=== PATIENT | male | born 1965 | race Two or more races ===

== ENCOUNTER 2020-04-29 07:29 | Emergency (ER) | payer SELFPAY ==
--- NOTE | 2020-04-29 | XR_ITS ---
EXAMINATION: XR ABDOMEN KUB CLINICAL INDICATION: Constipation COMPARISON: None TECHNIQUE: 3 views of the abdomen. FINDINGS: The bowel gas pattern is normal with no evidence of ileus or obstruction. Moderate to large volume fecal matter in the large colon. No unusual soft tissue calcifications are noted. No acute osseous abnormality. IMPRESSION: Moderate to large volume fecal matter in the large colon.
--- NOTE | 2020-04-29 | XR_ITS ---
EXAMINATION: XR CHEST CLINICAL INFORMATION: Cough. COMPARISON: None. TECHNIQUE: 2 views of the chest were obtained. FINDINGS: Normal cardiomediastinal silhouette. Opacity in the medial aspect right lung base, slightly more prominent as compared to previous. In addition, there is hazy airspace opacity in the left lower lung, partially silhouetting the left cardiac silhouette, more prominent from previous. These findings could represent atelectasis or subtle infiltrate. Normal pulmonary vascularity. No effusion or pulmonary edema. No pneumothorax. No acute osseous abnormality. IMPRESSION: Left lower lung hazy opacity, concerning for infiltrate. Right basilar opacity from atelectasis or infiltrate. Follow-up imaging post treatment to ensure resolution.
[2020-04-29 07:41] VITALS: BP 158/93; PULSE 87; RESP 18; TEMP 36.5; O2SAT 98; BMI 32.3
[2020-04-29 08:00] VITALS: O2SAT 97
--- NOTE | 2020-04-29 08:34 | PC.NURSE ---
instructed by antelmo andrea not to insert iv or perform ekg at this time
--- NOTE | 2020-04-29 08:36 | PC.NURSE ---
cardiac monitoring also not needed at present time per antelmo andrea
[2020-04-29] MEDS: predniSONE 20 MG TABLET 40 MG PO (08:42)
[2020-04-29] MEDS: Benzonatate 100 MG CAPSULE PO (08:42)
--- NOTE | 2020-04-29 08:46 | PC.NURSE ---
awaiting respiratory therapist for upn and xrays to be performed
--- NOTE | 2020-04-29 08:48 | ED_ITS ---
HPI - General Adult General Chief complaint: Upper Respiratory Symptoms Stated complaint: RIB PAIN Time Seen by Provider: 04/29/20 08:08 Source: patient Mode of arrival: ambulatory History of Present Illness HPI narrative: 54-year-old male with a PMHx diverticulitis, asthma c/o productive cough x1 week with associated left-sided rib pain from coughing. Reports mild SOB at baseline. Also reports constipation without BM x2 days with associated abdominal distension. Is passing flatus. Denies fever, chills, chest pain, recent travel, LE edema, history of clots, sick contacts, abdominal pain, nausea /vomiting, dysuria Onset (ago): week(s) Severity: mild Quality: aching Pain Consistency: constant Exacerbating factors: other (coughing) Associated symptoms: cough Treatments prior to arrival: none Related Data Home Medications Medication Instructions Recorded Confirmed No Known Home Meds 04/29/20 04/29/20 Allergies Allergy/AdvReac Type Severity Reaction Status Date / Time No Known Allergies Allergy Unknown Verified 04/29/20 07:40 Review of Systems Review of Systems: Yes all other systems are reviewed and are negative Constitutional: Constitutional: Reports as per HPI, Denies chills and Denies fever(s) Cardiovascular: Cardiovascular: Reports as per HPI, Denies chest pain, Denies leg edema and Reports dyspnea (chronically) Respiratory: Respiratory: Reports cough, Denies hemoptysis, Reports pain with cough and Reports dyspnea (chronically) Gastrointestinal: Gastrointestinal: Denies abdominal pain, Reports bloating, Reports constipation, Denies diarrhea, Denies nausea and Denies vomiting PMF Past Medical History Attestation statement: The following information was validated with the patient. Medical History (Updated 04/29/20 @ 11:09 by ALISON Huffman) Diverticulitis Surgical History (Updated 04/29/20 @ 07:46 by Becky Kaur) H/O colostomy History of colostomy reversal Social History Social History Alcohol intake: never Smoking Status: Current every day smoker Smoked in Last 30 Days: Yes Use of substances other than those prescribed or required for medical reasons: No Advance Directives: No Advance Directives Information Provided: Yes Physical Exam Vital Signs and I&O and Narrative: Vital Signs and I&O: Vital Signs Temp 98.3 F 04/29/20 10:00 Pulse 77 04/29/20 10:00 Resp 16 04/29/20 10:00 BP 130/82 04/29/20 10:00 Pulse Ox 97 04/29/20 10:00 Intake & Output 04/28/20 04/29/20 04/29/20 18:59 06:59 18:59 Weight 90.718 kg Body Mass Index 32.3 Const: General: cooperative Nutritional Appearance: overweight Orientation/consciousness: patient oriented x3 Eyes: General: appearance normal, both eyes and all related structures Neck: Neck: Yes normal visual inspection Chest: Chest palpation & inspection: normal inspection of the chest, no crepitus and tenderness costochondral junction (L anterior lower ribs) Resp: Effort & Inspection: normal respiratory effort, able to speak in complete sentences and no stridor Auscultation: no wheezes and diminished lung sounds (bibasilarly) Cardio: Jugular venous distension: no JVD Rhythm: regular rhythm Heart sounds: S1 normal heart sound present and S2 normal heart sound present GI: Inspection: Yes distended Palpation (GI): Soft to palpation, nontender and not rigid Neuro: General: patient oriented x3 Extrem: General: No pedal edema Course Course Course Narrative: --11:10-- chest x-ray showing left lower hazy opacity concerning for infiltrate. Right basilar opacity from atelectasis or infiltrate - KUB showing moderate to large volume fecal matter in the large colon without evidence of obstruction -- lab and imaging results discussed with patient including worrisome signs symptoms and strict return precautions. Patient verbalized understanding and feels safe for discharge follow-up with PCP. Discussed if does not have a BM in 2 days need to return to the ED immediately will test for COVID-19 prior to discharge Reevaluation(s) Reevaluation #1: on re-evaluation patient reports symptomatic improvement after albuterol /prednisone Time: 09:42 Medical Decision Making MDM Narrative Medical decision making narrative: 54-year-old male with a PMHx diverticulitis, asthma c/o productive cough x1 week with associated left-sided rib pain from coughing. Reports mild SOB at baseline. Also reports constipation without BM x2 days with associated abdominal distension Lab Data Lab results reviewed: Yes I reviewed the patient's lab results. Lab results narrative: labs unremarkable Result diagrams: 04/29/20 11:54 04/29/20 11:54 Labs: Lab Results 04/29/20 04/29/20 Range/Units 11:54 11:54 WBC 8.7 (4.8-10.8) X10*3/uL RBC 4.97 (4.60-5.80) X10*6/uL Hgb 15.7 (14.0-18.0) g/dl Hct 46.6 (42-52) % MCV 93.8 (80-98) fL MCH 31.6 (27.0-33.0) pg MCHC 33.7 (31.0-36.0) g/dl RDW 13.9 (11.0-16.0) % Plt Count 298 (160-400) X10*3/uL MPV 9.7 (9.4-12.4) fL Immature Gran % (Auto) 0.5 H (0.0-0.4) % Neut % (Auto) 83.0 H (45-73) % Lymph % (Auto) 12.5 L (20-40) % [place] % (Auto) 3.4 (2-11) % Eos % (Auto) 0.3 (0-4) % Baso % (Auto) 0.3 (0-2) % Neut # (Auto) 7.2 (2.0-8.3) X10*3/uL Lymph # (Auto) 1.1 L (1.2-4.9) X10*3/uL [place] # (Auto) 0.3 (0.1-1.2) X10*3/uL Eos # (Auto) 0.0 (0.0-0.4) X10*3/uL Baso # (Auto) 0.0 (0.0-0.2) X10*3/uL Abs Immat Gran (auto) 0.04 H (0.00-0.03) X10*3/uL Absolute Nucleated RBC 0.000 (0.0-0.012) X10*3/uL Nucleated RBC % (auto) 0.0 (0.0-0.2) /100WBC Sodium 138 (135-145) mmol/L Potassium 4.9 (3.3-5.1) mmol/l Chloride 103 (96-108) mmol/L Carbon Dioxide 29 (22-29) mmol/L Anion Gap 11 L (12-20) BUN 10 (9-16) mg/dL Creatinine 0.88 (0.5-1.4) mg/dL Estim Creat Clear Calc 103.5 Estimated GFR > 60 Random Glucose 116 H (60-115) mg/dL Calcium 9.5 (8.4-10.2) mg/dL Scores Additional Scores PORT: Score: 52-- outpatient treatment reasonable Discharge Plan Discharge Clinical Impression: Upper respiratory infection, Costochondritis, Constipation Prescriptions: No Action No Known Home Meds RF: 0
[2020-04-29] MEDS: Albuterol/Iprat 2.5/0.5MG 3 ML AMPUL.NEB INHALE (08:49)
[2020-04-29 10:00] VITALS: BP 130/82; PULSE 77; RESP 16; TEMP 36.8; O2SAT 97
[2020-04-29 12:00] VITALS: BP 156/91; PULSE 69; RESP 16; TEMP 36.6; O2SAT 99
[2020-04-29 12:04] LABS: MANUAL DIFF FLAG NO
[2020-04-29 12:06] LABS: Basophils Percent Auto 0.3 % (0-2); Eosinophils Percent Auto 0.3 % (0-4); Hematocrit 46.6 % (42-52); Hemoglobin 15.7 g/dl (14.0-18.0); Imm Gran Abs Auto 0.04 X10*3/uL (0.00-0.03); Imm Gran Pct Auto 0.5 % (0.0-0.4); Lymphocytes Absolute Auto 1.1 X10*3/uL (1.2-4.9); Lymphocytes Percent Auto 12.5 % (20-40); Mean Corpuscular HGB Conc 33.7 g/dl (31.0-36.0); Mean Corpuscular Hemoglobin 31.6 pg (27.0-33.0); Mean Corpuscular Volume 93.8 fL (80-98); Mean Platelet Volume 9.7 fL (9.4-12.4); Monocytes Absolute Auto 0.3 X10*3/uL (0.1-1.2); Monocytes Percent Auto 3.4 % (2-11); Neutrophils Absolute Auto 7.2 X10*3/uL (2.0-8.3); Platelet Count 298 X10*3/uL (160-400); Red Blood Count 4.97 X10*6/uL (4.60-5.80); Red Cell Distribution Width 13.9 % (11.0-16.0); White Blood Count 8.7 X10*3/uL (4.8-10.8)
[2020-04-29 12:33] LABS: Anion Gap 11 (12-20); Blood Urea Nitrogen 10 mg/dL (9-16); Calcium 9.5 mg/dL (8.4-10.2); Carbon Dioxide 29 mmol/L (22-29); Chloride 103 mmol/L (96-108); Creatinine Clr Calc Pharmacy 103.5; Estimated Glomerular Filt Rate > 60; Glucose Random 116 mg/dL (60-115); Potassium 4.9 mmol/l (3.3-5.1); Sodium 138 mmol/L (135-145)
[2020-04-29] MEDS: Amoxicillin/Potassium Clav 875 MG TABLET PO (12:53)
[2020-04-29] MEDS: Azithromycin 500 MG TABLET PO (12:53)
[2020-04-29] MEDS: polyethylene glycoL 3350 17 GM POWD.PACK PO (12:54)
== END 2020-04-29 13:10 | disposition home or self-care (01) ==
PROVIDERS: Physician Assistant; Emergency Provider Emergency Medicine
DX: M94.0 Chondrocostal junction syndrome [Tietze] (principal); K59.00 Constipation, unspecified; F17.200 Nicotine dependence, unspecified, uncomplicated; Z71.6 Tobacco abuse counseling
CPT/HCPCS: 36415; 71046; 74018; 80048; 85025; 87040; 87635; 99284; 99285

== ENCOUNTER 2020-08-18 08:46 | Emergency (ER) | payer OTHER, SELFPAY ==
[2020-08-18 09:01] VITALS: BP 161/93; PULSE 96; RESP 18; TEMP 37.4; O2SAT 98; BMI 32.5
--- NOTE | 2020-08-18 09:05 | XR_ITS ---
EXAMINATION: XR ABDOMEN KUB CLINICAL INDICATION: Bloating. COMPARISON: None TECHNIQUE: AP view of the abdomen. FINDINGS: There is scattered stool and gas seen throughout the colon without any significant distention. No radiopaque calculi. No organomegaly. No gross bony abnormality. The SI joints and bilateral hip joints are symmetrical and normal. There is mild spondylosis mid lumbar spine XR/XR KUB IMPRESSION: Mild constipation. No acute process.
--- NOTE | 2020-08-18 09:06 | ED_ITS ---
HPI - Abdominal Pain General Chief Complaint: Abdominal Pain Stated Complaint: abd pain Time Seen by Provider: 08/18/20 08:58 Source: patient Mode of arrival: ambulatory History of Present Illness HPI narrative: 55-year-old male with a past medical history of diverticulitis s/p colostomy and reversal to the ED complaining of abdominal bloa ting/distension times a few days. Reports intermittent abdominal discomfort when drink carbonated beverages, but denies at present. Denies nausea, vomiting, diarrhea, constipation, dysuria/hematuria, fever, chills, suspicious food intake. Last BM this morning MD elicited complaint: abdominal pain Related Data Previous Rx's Medication Instructions Recorded albuterol sulfate 2 inh INHALATION Q4-6H PRN #1 ea 04/29/20 amoxicillin-pot clavulanate 1 tab PO BID 7 Days #14 tab 04/29/20 [Augmentin] azithromycin 250 mg PO DAILY 4 Days #4 tab 04/29/20 benzonatate [Tessalon Perles] 100 mg PO BID PRN #10 cap 04/29/20 mineral oil [Fleet Mineral Oil] 118 ml SC DAILY PRN 1 Days #135 ml 04/29/20 polyethylene glycol 3350 [Miralax] 17 g PO DAILY #119 g 04/29/20 prednisone 40 mg PO DAILY 4 Days #8 tab 04/29/20 polyethylene glycol 3350 [Miralax] 17 g PO DAILY PRN #119 g 08/18/20 Allergies Allergy/AdvReac Type Severity Reaction Status Date / Time No Known Allergies Allergy Unknown Verified 04/29/20 07:40 Review of Systems Review of Systems Constitutional: No Weight loss, No Fever, No Chills Cardiovascular: No Chest Pain, No SOB, No Dyspnea on Exertion Respiratory: No Cough, No Sputum Gastrointestinal: No Nausea, No Vomiting, No Diarrhea, No Constipation, +intermittent Abdominal pain, +abdominal bloating Genitourinary: No irregular bleeding, No Dysuria, No Urinary Frequency, No Hematuria, No Flank Pain, No Hesitancy Musculoskeletal: No joint pain, No Myalgias, No Joint Swelling Skin: No Skin Lesions, No rash Neuro: No Weakness, No Numbness, No Headache Yes all other systems are reviewed and are negative Physical Exam Vital Signs: Vital Signs: Last Vital Signs Temp 99.3 F 08/18/20 09:01 Pulse 96 08/18/20 09:01 Resp 18 08/18/20 09:01 BP 161/93 H 08/18/20 09:01 Pulse Ox 98 08/18/20 09:01 Body Mass Index 32.5 Const: General: cooperative, healthy appearing, comfortable and no acute distress Orientation/consciousness: patient oriented x3 Limitations: no limitations HENMT: Head: Yes normal to inspection Ears: hearing grossly normal bilaterally General nose exam: Normal external nose present Face and sinus: Yes normal facial exam Eyes: General: appearance normal, both eyes and all related structures EOM: EOMs intact bilaterally Neck: Neck: Yes normal visual inspection and Yes no meningeal signs Resp: Effort & Inspection: normal respiratory effort Auscultation: clear to auscultation bilaterally, no rales, no rhonchi and no wheezes Cardio: Rate: regular rate Heart sounds: S1 normal heart sound present and S2 normal heart sound present GI: Inspection: Yes normal to inspection and No distended Palpation (GI): Soft to palpation, nontender, no guarding and not rigid : General: Yes no CVA tenderness Back/Spine/Pelvis: Back: no CVA tenderness Skin: Rashes: no rashes Wounds: no wounds Neuro: General: patient oriented x3 and no meningeal signs Gait exam (Neuro): Normal gait present Extrem: Other: No LE edema General: Yes normal to inspection Course Course Course Narrative: XR KUB IMPRESSION: Mild constipation. No acute process * Labs unremarkable. Results discussed with patient including worrisome signs and symptoms and strict return precautions. Is to follow up with GI. He is agreement with plan MDM - Abdominal Pain MDM Narrative Medical decision making narrative: 55-year-old male with a past medical history of diverticulitis s/p colostomy and reversal to the ED complaining of abdominal bloating/distension times a few days. On exam VSS, NAD/nontoxic appearing, abdomen soft, nontender, no rebound or guarding. No appreciable distention/ patient is overweight. Plan: Labs, UA, KUB, re-evaluate Lab Data Result diagrams: 08/18/20 09:44 08/18/20 09:44 Labs: Lab Results 08/18/20 08/18/20 08/18/20 Range/Units 09:44 09:44 09:44 WBC 7.1 (4.8-10.8) X10*3/uL RBC 4.89 (4.60-5.80) X10*6/uL Hgb 15.5 (14.0-18.0) g/dl Hct 45.5 (42-52) % MCV 93.0 (80-98) fL MCH 31.7 (27.0-33.0) pg MCHC 34.1 (31.0-36.0) g/dl RDW 14.1 (11.0-16.0) % Plt Count 285 (160-400) X10*3/uL MPV 9.5 (9.4-12.4) fL Immature Gran % (Auto) 0.4 (0.0-0.4) % Neut % (Auto) 55.2 (45-73) % Lymph % (Auto) 32.0 (20-40) % [place] % (Auto) 10.2 (2-11) % Eos % (Auto) 1.6 (0-4) % Baso % (Auto) 0.6 (0-2) % Lymph # (Auto) 2.3 (1.2-4.9) X10*3/uL [place] # (Auto) 0.7 (0.1-1.2) X10*3/uL Eos # (Auto) 0.1 (0.0-0.4) X10*3/uL Baso # (Auto) 0.0 (0.0-0.2) X10*3/uL Abs Immat Gran (auto) 0.03 (0.00-0.03) X10*3/uL Absolute Neuts (auto) 3.9 (2.0-8.3) X10*3/uL Absolute Nucleated RBC 0.000 (0.0-0.012) X10*3/uL Nucleated RBC % (auto) 0.0 (0.0-0.2) /100WBC Hold Blue Top SEE NOTE Sodium 138 (135-145) mmol/L Potassium 4.8 (3.3-5.1) mmol/l Chloride 105 (96-108) mmol/L Carbon Dioxide 24 (22-29) mmol/L Anion Gap 14 (12-20) BUN 14 (9-16) mg/dL Creatinine 0.94 (0.5-1.4) mg/dL Estim Creat Clear Calc 105.8 Estimated GFR > 60 Random Glucose 134 H (60-115) mg/dL Calcium 8.5 D (8.4-10.2) mg/dL Magnesium 2.1 (1.6-2.6) mg/dL Total Bilirubin 0.2 (0.0-1.0) mg/dL Direct Bilirubin < 0.2 (0.0-0.5) mg/dL AST 26 (5-37) U/L ALT 35 (0-40) U/L Alkaline Phosphatase 104 (39-117) U/L Total Protein 7.4 (6.5-8.0) g/dL Albumin 3.8 (3.5-5.0) g/dL Lipase 15 (8-78) U/L Discharge Plan Discharge Clinical Impression: Constipation Qualifiers: Constipation type: unspecified constipation type Qualified Code(s): K59.00 - Constipation, unspecified Patient Disposition: Home, Self-Care Instructions: Constipation (ED) Additional Instructions: Your x-ray showed mild constipation. Your blood work was unremarkable/reassuri ng. MiraLax is a laxative medication, take as needed for constipation. Make sure your staying hydrated at home. Avoid carbonated beverages, sweet/spicy foods for the next few days. Follow-up with a GI doctor. If her pain/discomfort persists or worsens, becomes unbearable, you are unable to eat or drink return to the ED Prescriptions: New polyethylene glycol 3350 [Miralax] 17 gram/dose powder 17 g PO DAILY PRN (Reason: constipation) Qty: 119 RF: 0 No Action azithromycin 250 mg tablet 250 mg PO DAILY 4 Days Qty: 4 RF: 0 amoxicillin-pot clavulanate [Augmentin] 875-125 mg tablet 1 tab PO BID 7 Days Qty: 14 RF: 0 albuterol sulfate 90 mcg/actuation aerosol powdr breath activated 2 inh inhalation Q4-6H PRN (Reason: shortness of breath or wheezing) Qty: 1 RF: 0 polyethylene glycol 3350 [Miralax] 17 gram/dose powder 17 g PO DAILY Qty: 119 RF: 0 benzonatate [Tessalon Perles] 100 mg capsule 100 mg PO BID PRN (Reason: cough) Qty: 10 RF: 0 prednisone 20 mg tablet 40 mg PO DAILY 4 Days Qty: 8 RF: 0 mineral oil [Fleet Mineral Oil] Enema 118 ml SC DAILY PRN (Reason: constipation) 1 Days Qty: 135 RF: 0 Referrals: Riana Schilling MD [Physician] - 1 week [facility] Past Medical History Attestation statement: The following information was validated with the patient. Medical History (Updated 08/18/20 @ 10:34 by ALISON Huffman) Diverticulitis Surgical History H/O colostomy History of colostomy reversal Social History Social History Alcohol intake: never Smoking Status: Current every day smoker Advance Directives: No Advance Directives Information Provided: No
[2020-08-18 09:48] LABS: MANUAL DIFF FLAG NO
[2020-08-18 09:52] LABS: Basophils Percent Auto 0.6 % (0-2); Eosinophils Absolute Auto 0.1 X10*3/uL (0.0-0.4); Eosinophils Percent Auto 1.6 % (0-4); Hematocrit 45.5 % (42-52); Hemoglobin 15.5 g/dl (14.0-18.0); Imm Gran Abs Auto 0.03 X10*3/uL (0.00-0.03); Imm Gran Pct Auto 0.4 % (0.0-0.4); Lymphocytes Absolute Auto 2.3 X10*3/uL (1.2-4.9); Mean Corpuscular HGB Conc 34.1 g/dl (31.0-36.0); Mean Corpuscular Hemoglobin 31.7 pg (27.0-33.0); Mean Platelet Volume 9.5 fL (9.4-12.4); Monocytes Absolute Auto 0.7 X10*3/uL (0.1-1.2); Monocytes Percent Auto 10.2 % (2-11); Neutrophils Absolute Auto 3.9 X10*3/uL (2.0-8.3); Neutrophils Percent Auto 55.2 % (45-73); Platelet Count 285 X10*3/uL (160-400); Red Blood Count 4.89 X10*6/uL (4.60-5.80); Red Cell Distribution Width 14.1 % (11.0-16.0); White Blood Count 7.1 X10*3/uL (4.8-10.8)
[2020-08-18 10:38] LABS: Alanine Aminotransferase 35 U/L (0-40); Albumin Level 3.8 g/dL (3.5-5.0); Alkaline Phosphatase 104 U/L (39-117); Anion Gap 14 (12-20); Aspartate Amino Transferase 26 U/L (5-37); Bilirubin Direct < 0.2 mg/dL (0.0-0.5); Bilirubin Total 0.2 mg/dL (0.0-1.0); Blood Urea Nitrogen 14 mg/dL (9-16); Calcium 8.5 mg/dL (8.4-10.2); Carbon Dioxide 24 mmol/L (22-29); Chloride 105 mmol/L (96-108); Creatinine Clr Calc Pharmacy 105.8; Estimated Glomerular Filt Rate > 60; Glucose Random 134 mg/dL (60-115); Lipase 15 U/L (8-78); Magnesium 2.1 mg/dL (1.6-2.6); Potassium 4.8 mmol/l (3.3-5.1); Sodium 138 mmol/L (135-145); Total Protein 7.4 g/dL (6.5-8.0)
[2020-08-18 10:45] VITALS: BP 175/94; PULSE 80; RESP 17; O2SAT 97
[2020-08-18 11:34] LABS: Glucose Urine UA NEG (NEG); Leukocyte Esterase Urine NEG (NEG); Nitrite Urine NEG (NEG); Specific Gravity - Urine 1.025 (1.005-1.025); Urine Blood TRACE (NEG); Urine Ketones NEG (NEG); Urine Protein NEG (NEG-TRACE)
[2020-08-18 11:36] LABS: Appearance Urine CLEAR; Color Urine YELLOW
[2020-08-18 11:44] LABS: Mucus Urine TRACE /LPF; RBC Urine 0-2 /HPF (0); Squamous Epithelial Cell Urine TRACE /LPF; WBC Urine 0 /HPF (0-4)
== END 2020-08-18 11:22 | disposition home or self-care (01) ==
PROVIDERS: Physician Assistant; Emergency Provider Internal Medicine
DX: K59.00 Constipation, unspecified (principal)
CPT/HCPCS: 36415; 74018; 80048; 80076; 81001; 83690; 83735; 85025; 99283

== ENCOUNTER 2020-09-24 11:03 | Outpatient (REF) | payer OTHER, SELFPAY ==
[2020-09-24 13:50] LABS: MANUAL DIFF FLAG NO
[2020-09-24 14:02] LABS: Basophils Percent Auto 0.4 % (0-2); Eosinophils Absolute Auto 0.2 X10*3/uL (0.0-0.4); Eosinophils Percent Auto 2.1 % (0-4); Hematocrit 46.2 % (42-52); Hemoglobin 15.6 g/dl (14.0-18.0); Imm Gran Abs Auto 0.02 X10*3/uL (0.00-0.03); Imm Gran Pct Auto 0.3 % (0.0-0.4); Lymphocytes Absolute Auto 2.4 X10*3/uL (1.2-4.9); Lymphocytes Percent Auto 32.7 % (20-40); Mean Corpuscular HGB Conc 33.8 g/dl (31.0-36.0); Mean Corpuscular Hemoglobin 31.5 pg (27.0-33.0); Mean Corpuscular Volume 93.3 fL (80-98); Mean Platelet Volume 10.4 fL (9.4-12.4); Monocytes Absolute Auto 0.6 X10*3/uL (0.1-1.2); Monocytes Percent Auto 8.8 % (2-11); Neutrophils Percent Auto 55.7 % (45-73); Platelet Count 305 X10*3/uL (160-400); Red Blood Count 4.95 X10*6/uL (4.60-5.80); Red Cell Distribution Width 14.1 % (11.0-16.0); White Blood Count 7.2 X10*3/uL (4.8-10.8)
[2020-09-24 14:14] LABS: Alanine Aminotransferase 56 U/L (0-40); Albumin Level 3.9 g/dL (3.5-5.0); Alkaline Phosphatase 113 U/L (39-117); Anion Gap 10 (12-20); Aspartate Amino Transferase 29 U/L (5-37); Bilirubin Total 0.5 mg/dL (0.0-1.0); Blood Urea Nitrogen 10 mg/dL (9-16); Calcium 8.9 mg/dL (8.4-10.2); Carbon Dioxide 26 mmol/L (22-29); Chloride 104 mmol/L (96-108); Cholesterol 192 mg/dL; Estimated Glomerular Filt Rate > 60; Glucose Fasting 104 mg/dL (60-99); HDL Cholesterol 38 mg/dL; LDL Cholesterol Calculated 141 mg/dl; Potassium 4.2 mmol/L (3.3-5.1); Sodium 136 mmol/L (135-145); Total Protein 7.2 g/dL (6.5-8.0); Triglycerides 68 mg/dL
[2020-09-24 14:37] LABS: Prostate Specific Antigen Scr 0.59 ng/mL (<0.05-4.0); Vitamin D 25-OH Total 11.6 ng/mL (>30)
== END 2020-09-24 11:04 | disposition home or self-care (01) ==
LOC: HO.10HDL 11:03
PROVIDERS: Visit Provider Internal Medicine Medical Oncology
DX: Z12.5 Encounter for screening for malignant neoplasm of prostate (principal); E78.5 Hyperlipidemia, unspecified
CPT/HCPCS: 36415; 80053; 80061; 82306; 84153; 85025

== ENCOUNTER → 2020-10-06 10:55 | Outpatient (BNVA) | payer OTHER, SELFPAY | PROVIDERS: Visit Provider Physician Assistant ==

== ENCOUNTER 2021-02-17 12:12 | Outpatient (REF) | payer OTHER, SELFPAY ==
--- NOTE | ~2021-02-17 | XR_ITS ---
EXAMINATION: XR CHEST CLINICAL INFORMATION: Smoker with persistent cough COMPARISON: April 29, 2020 TECHNIQUE: 2 views of the chest were obtained. FINDINGS: There is a new region of disease seen within the lingula consistent with atelectasis or pneumonitis. There is some stable asymmetric pleural thickening about the right apex. Heart normal size. No evidence of pulmonary edema. No pneumothorax or pleural effusion. XR/XR chest 2V IMPRESSION: Lingula disease.
== END 2021-02-17 12:13 | disposition home or self-care (01) ==
LOC: HO.XRAY 12:12
PROVIDERS: PCP Internal Medicine Medical Oncology; Visit Provider Internal Medicine Medical Oncology
DX: R05 Cough (principal); F17.200 Nicotine dependence, unspecified, uncomplicated
CPT/HCPCS: 71046

== ENCOUNTER 2021-03-11 10:13 | Outpatient (REF) | payer OTHER, SELFPAY ==
[2021-03-11 13:43] LABS: MANUAL DIFF FLAG NO
[2021-03-11 13:51] LABS: Basophils Percent Auto 0.4 % (0-2); Eosinophils Absolute Auto 0.2 X10*3/uL (0.0-0.4); Eosinophils Percent Auto 2.5 % (0-4); Hematocrit 45.6 % (42-52); Hemoglobin 15.3 g/dl (14.0-18.0); Imm Gran Abs Auto 0.02 X10*3/uL (0.00-0.03); Imm Gran Pct Auto 0.3 % (0.0-0.4); Lymphocytes Absolute Auto 2.4 X10*3/uL (1.2-4.9); Lymphocytes Percent Auto 33.4 % (20-40); Mean Corpuscular HGB Conc 33.6 g/dl (31.0-36.0); Mean Corpuscular Hemoglobin 31.4 pg (27.0-33.0); Mean Corpuscular Volume 93.4 fL (80-98); Mean Platelet Volume 10.6 fL (9.4-12.4); Monocytes Absolute Auto 0.6 X10*3/uL (0.1-1.2); Monocytes Percent Auto 8.1 % (2-11); Neutrophils Percent Auto 55.3 % (45-73); Platelet Count 297 X10*3/uL (160-400); Red Blood Count 4.88 X10*6/uL (4.60-5.80); Red Cell Distribution Width 14.7 % (11.0-16.0); White Blood Count 7.2 X10*3/uL (4.8-10.8)
[2021-03-11 14:42] LABS: Alanine Aminotransferase 41 U/L (0-40); Albumin Level 3.7 g/dL (3.5-5.0); Alkaline Phosphatase 95 U/L (39-117); Anion Gap 11 (12-20); Aspartate Amino Transferase 26 U/L (5-37); Bilirubin Total 0.3 mg/dL (0.0-1.0); Blood Urea Nitrogen 12 mg/dL (9-16); Calcium 8.5 mg/dL (8.4-10.2); Carbon Dioxide 27 mmol/L (22-29); Chloride 104 mmol/L (96-108); Estimated Glomerular Filt Rate > 60; Glucose Random 105 mg/dL (60-115); Potassium 4.7 mmol/L (3.3-5.1); Sodium 137 mmol/L (135-145); Total Protein 7.1 g/dL (6.5-8.0)
[2021-03-14 19:37] LABS: TS Negative Control Passed; TS Panel A 0; TS Panel B 0; TS Positive Control Passed; TSpotTB Negative (SeeBelow)
== END 2021-03-11 10:14 | disposition home or self-care (01) ==
LOC: HO.10HDL 10:13
PROVIDERS: PCP Internal Medicine Medical Oncology; Visit Provider Internal Medicine Medical Oncology
DX: Z11.1 Encounter for screening for respiratory tuberculosis (principal); E78.5 Hyperlipidemia, unspecified; E66.9 Obesity, unspecified
CPT/HCPCS: 36415; 80053; 85025; 86481

== ENCOUNTER 2021-03-24 07:54 | Outpatient (REF) | payer OTHER, SELFPAY ==
--- NOTE | ~2021-03-24 | CT_ITS ---
EXAMINATION: CT CHEST WITH CONTRAST CLINICAL INFORMATION: Abnormal findings. COMPARISON: Chest x-ray 02/17/2021 TECHNIQUE: Multidetector volumetric CT imaging of the chest was obtained after the administration of 65 mL of Omnipaque 350 intravenous contrast without immediate adverse reactions. Axial MIP volume rendering provided. Sagittal and coronal reformatted images were obtained. This CT examination was performed using dose optimization techniques as appropriate, variously including the following: *Automated exposure control *Adjustment of mA and/or kV according to patient size (this includes techniques or standardized protocols for targeted exams where dose is matched to indication/reason for exam; i.e. extremities or head) *Use of iterative reconstruction technique DLP: 225 mGy-cm FINDINGS: HEEL COVER SOFTENER: Possible minor scarring in the lingula. Otherwise, unremarkable. LUNGS: There is mild scattered centrilobular emphysema. There are vague patchy ground-glass opacities in the right upper and right lower lobes could be inflammatory or possibly mosaic perfusion due to underlying lung disease. There is a suggestion of a few tiny scattered 1-2 mm nodules, for example in the right lower lobe, subpleural (series 4, image 101) and right middle lobe adjacent to the major fissure (image 125). There is mild subsegmental atelectasis or scarring in the lingula. There is a prominent epicardial fat pad adjacent to the lingula and also at the right cardiophrenic angle. MEDIASTINUM: The mediastinum is normal. PLEURA: There is no pleural effusion. No pleural mass or thickening. AXILLA: No lymphadenopathy. UPPER ABDOMEN: There is a partially visualized fat-containing midline ventral hernia in the upper abdomen. The upper abdominal structures are otherwise unremarkable. OSSEOUS STRUCTURES: Unremarkable. CT/CT chest w con IMPRESSION: 1. Mild scattered centrilobular emphysema. 2. Mild subsegmental scarring or atelectasis in the lingula. Prominent epicardial fat pad adjacent to the lingula which likely accounted for most of the density on the prior chest x-ray. 3. Subtle ground-glass opacities in the right upper lobe and right lower lobe could represent a subtle inflammatory process. 4. There are possibly a few scattered 1-2 mm pulmonary nodules. Consider followup CT in 12 months.
[2021-03-24] MEDS: iohexoL 350 MG/ML 100 ML INFUS..BTL IV (08:58)
== END 2021-03-24 07:55 | disposition home or self-care (01) ==
LOC: HO.CT 07:54
PROVIDERS: Visit Provider Internal Medicine Medical Oncology
DX: R91.8 Other nonspecific abnormal finding of lung field (principal)
CPT/HCPCS: 71260; Q9967

== ENCOUNTER 2021-12-17 23:18 | Emergency (ER) | payer OTHER, SELFPAY ==
[2021-12-17 23:38] LABS: MANUAL DIFF FLAG NO
[2021-12-17 23:41] LABS: Basophils Percent Auto 0.5 % (0-2); Eosinophils Absolute Auto 0.2 X10*3/uL (0.0-0.4); Eosinophils Percent Auto 2.2 % (0-4); Hemoglobin 14.5 g/dl (14.0-18.0); Imm Gran Abs Auto 0.03 X10*3/uL (0.00-0.03); Imm Gran Pct Auto 0.4 % (0.0-0.4); Lymphocytes Absolute Auto 3.1 X10*3/uL (1.2-4.9); Lymphocytes Percent Auto 38.2 % (20-40); Mean Corpuscular HGB Conc 33.7 g/dl (31.0-36.0); Mean Corpuscular Hemoglobin 31.3 pg (27.0-33.0); Mean Corpuscular Volume 92.7 fL (80.0-98.0); Mean Platelet Volume 9.9 fL (9.4-12.4); Monocytes Absolute Auto 0.6 X10*3/uL (0.1-1.2); Monocytes Percent Auto 7.6 % (2-11); NRBC Pct Auto 0.2 /100WBC (0.0-0.2); Neutrophils Absolute Auto 4.1 x10*3/uL (2.0-8.3); Neutrophils Percent Auto 51.1 % (45-73); Platelet Count 283 X10*3/uL (160-400); Red Blood Count 4.64 X10*6/uL (4.60-5.80); Red Cell Distribution Width 14.9 % (11.0-16.0); White Blood Count 8.1 X10*3/uL (4.8-10.8)
[2021-12-17 23:51] VITALS: BP 157/84; PULSE 77; RESP 18; TEMP 36.4; O2SAT 97; BMI 36.9
[2021-12-17 23:58] LABS: Alanine Aminotransferase 28 U/L (0-40); Albumin Level 3.5 g/dL (3.5-5.0); Alkaline Phosphatase 95 U/L (39-117); Anion Gap 12 (12-20); Aspartate Amino Transferase 23 U/L (5-37); Bilirubin Total 0.2 mg/dL (0.0-1.0); Blood Urea Nitrogen 11 mg/dL (9-16); Calcium 8.8 mg/dL (8.4-10.2); Carbon Dioxide 20 mmol/L (22-29); Chloride 109 mmol/L (96-108); Creatinine Clr Calc Pharmacy 113.9; Estimated Glomerular Filt Rate > 60; Glucose Random 129 mg/dL (60-115); Lipase 16 U/L (8-78); Potassium 4.4 mmol/L (3.3-5.1); Sodium 137 mmol/L (135-145); Total Protein 7.6 g/dL (6.5-8.0)
--- NOTE | 2021-12-18 07:26 | ED_ITS ---
HPI - General Adult General Chief complaint: General Medical Stated complaint: High BP, stomach pain Time Seen by Provider: 12/18/21 06:25 Source: patient and family Mode of arrival: ambulatory History of Present Illness HPI narrative: 56-year-old male with history of hypertension and ?borderline COPD? and is an everyday smoker presents with concerns regarding elevated blood pressure with associated headache and feeling chest tightness. Patient is currently asymptomatic, denies any fever, chills, new cough. Related Data Previous Rx's Medication Instructions Recorded albuterol sulfate 90 mcg/actuation 2 inh INHALATION Q4-6H PRN #1 ea 04/29/20 breath activated powder inhaler amoxicillin 875 mg-potassium 1 tab PO BID 7 Days #14 tab 04/29/20 clavulanate 125 mg tablet (Augmentin) azithromycin 250 mg tablet 250 mg PO DAILY 4 Days #4 tab 04/29/20 benzonatate 100 mg capsule 100 mg PO BID PRN #10 cap 04/29/20 (Tessalon Perles) mineral oil (Fleet Mineral Oil) 118 ml ID DAILY PRN 1 Days #135 ml 04/29/20 polyethylene glycol 3350 17 17 g PO DAILY #119 g 04/29/20 gram/dose oral powder (Miralax) prednisone 20 mg tablet 40 mg PO DAILY 4 Days #8 tab 04/29/20 polyethylene glycol 3350 17 17 g PO DAILY PRN #119 g 08/18/20 gram/dose oral powder (Miralax) bisacodyl 5 mg tablet,delayed 10 mg PO ONCE 1 Days #2 tab 10/06/20 release (Dulcolax (bisacodyl)) polyethylene glycol 3350 17 gram 17 g PO DAILY #30 ea 10/06/20 oral powder packet (Miralax) polyethylene glycol 3350 17 238 g PO ONCE 1 Days #238 g 10/06/20 gram/dose oral powder (Miralax) hydrochlorothiazide 25 mg tablet 25 mg PO DAILY #30 tab 12/18/21 Allergies Allergy/AdvReac Type Severity Reaction Status Date / Time No Known Allergies Allergy Unknown Verified 12/17/21 23:53 Review of Systems Review of Systems: Pertinent positives and negatives as stated in HPI 10 point review of systems otherwise negative. PMFSH Past Medical History Source: nursing notes reviewed Medical History Acid reflux Diverticulitis Surgical History H/O colostomy History of colostomy reversal Family History Family History Mother Diabetes Arthritis Sleep apnea COPD (chronic obstructive pulmonary disease) Father Stomach cancer Diabetes Arthritis Sister Arthritis Social History Social History Household Members: Spouse Alcohol intake: current Alcohol intake frequency: a few times a week Alcohol type: beer and hard liquor Cigarette Packs Per Day: 1 Advance Directives: No Advance Directives Information Provided: Yes Current occupational status: employed Current occupation: [employer] Physical Exam ED Vital Signs: Vital Signs - 24 hr 12/17/21 23:51 Temperature 97.6 F Pulse Rate 77 Respiratory Rate 18 Blood Pressure 157/84 H Pulse Oximetry 97 BMI result Body Mass Index 36.9 VITAL SIGNS: Reviewed. GENERAL: Well developed, well nourished, in no acute distress. HEAD: Normocephalic/atraumatic EYES: PERRLA, EOMI EARS: Ext canals without abnormality OROPHARYNX: no oral lesions noted, posterior pharynx clear LUNGS: Normal breath sounds. No adventitious sounds or accessory muscle use. SpO2<97> CARDIOVASCULAR: Regular rate and rhythm without noted murmurs, no JVD or lower extremity edema. ABDOMEN: Soft, non-tender, non-distended with bowel sounds. NEUROLOGIC: Alert and oriented x 4. Strength and sensation to light touch were grossly intact x 4, no facial asymmetry, no pronator drift, cranial nerves 2-12 are grossly intact. Course Course Course Narrative: 56-year-old male with history and clinical presentation consistent with underlying elevated blood pressure as well as combination of continued cigarette smoking and COPD. No evidence to suggest neurological deficits and patient maintains asymptomatic. Review of all investigations otherwise negative for ac je findings and he was informed of all results of bedside and strongly encouraged to follow-up with his primary care provider and get started on a medication to control blood pressure. Medical Decision Making Lab Data Result diagrams: 12/17/21 23:33 12/17/21 23:33 Labs: Lab Results 12/17/21 12/17/21 Range/Units 23:33 23:33 WBC 8.1 (4.8-10.8) X10*3/uL RBC 4.64 (4.60-5.80) X10*6/uL Hgb 14.5 (14.0-18.0) g/dl Hct 43.0 (42.0-52.0) % MCV 92.7 (80.0-98.0) fL MCH 31.3 (27.0-33.0) pg MCHC 33.7 (31.0-36.0) g/dl RDW 14.9 (11.0-16.0) % Plt Count 283 (160-400) X10*3/uL MPV 9.9 (9.4-12.4) fL Immature Gran % (Auto) 0.4 (0.0-0.4) % Neut % (Auto) 51.1 (45-73) % Lymph % (Auto) 38.2 (20-40) % [place] % (Auto) 7.6 (2-11) % Eos % (Auto) 2.2 (0-4) % Baso % (Auto) 0.5 (0-2) % Lymph # (Auto) 3.1 (1.2-4.9) X10*3/uL [place] # (Auto) 0.6 (0.1-1.2) X10*3/uL Eos # (Auto) 0.2 (0.0-0.4) X10*3/uL Baso # (Auto) 0.0 (0.0-0.2) X10*3/uL Abs Immat Gran (auto) 0.03 (0.00-0.03) X10*3/uL Absolute Neuts (auto) 4.1 (2.0-8.3) x10*3/uL Absolute Nucleated RBC 0.020 H (0.0-0.012) X10*3/uL Nucleated RBC % (auto) 0.2 (0.0-0.2) /100WBC Sodium 137 (135-145) mmol/L Potassium 4.4 (3.3-5.1) mmol/L Chloride 109 H (96-108) mmol/L Carbon Dioxide 20 L (22-29) mmol/L Anion Gap 12 (12-20) BUN 11 (9-16) mg/dL Creatinine 0.92 (0.5-1.4) mg/dL Estim Creat Clear Calc 113.9 Estimated GFR > 60 Random Glucose 129 H (60-115) mg/dL Calcium 8.8 (8.4-10.2) mg/dL Total Bilirubin 0.2 (0.0-1.0) mg/dL AST 23 (5-37) U/L ALT 28 (0-40) U/L Alkaline Phosphatase 95 (39-117) U/L Total Protein 7.6 (6.5-8.0) g/dL Albumin 3.5 (3.5-5.0) g/dL Lipase 16 (8-78) U/L Discharge Plan Discharge Clinical Impression: Elevated BP without diagnosis of hypertension, Acid reflux, Cigarette smoker Patient Disposition: Home, Self-Care Instructions: How to Stop Smoking (ED), Indigestion (ED), DASH Eating Plan (ED), Hypertension (ED) Additional Instructions: 1. Resume all home medications as prescribed. 2. Follow-up with your primary care provider next 1-2 days for re-evaluation further outpatient management. Return to the ER for worsening symptoms. Prescriptions: New hydrochlorothiazide 25 mg tablet 25 mg PO DAILY Qty: 30 0RF No Action azithromycin 250 mg tablet 250 mg PO DAILY 4 Days Qty: 4 0RF amoxicillin-pot clavulanate [Augmentin] 875-125 mg tablet 1 tab PO BID 7 Days Qty: 14 0RF albuterol sulfate 90 mcg/actuation aerosol powdr breath activated 2 inh inhalation Q4-6H PRN (Reason: shortness of breath or wheezing) Qty: 1 0RF polyethylene glycol 3350 [Miralax] 17 gram/dose powder 17 g PO DAILY Qty: 119 0RF benzonatate [Tessalon Perles] 100 mg capsule 100 mg PO BID PRN (Reason: cough) Qty: 10 0RF prednisone 20 mg tablet 40 mg PO DAILY 4 Days Qty: 8 0RF mineral oil [Fleet Mineral Oil] Enema 118 ml ID DAILY PRN (Reason: constipation) 1 Days Qty: 135 0RF Rx Instructions: discard any unused portion polyethylene glycol 3350 [Miralax] 17 gram/dose powder 17 g PO DAILY PRN (Reason: constipation) Qty: 119 0RF bisacodyl [Dulcolax (bisacodyl)] 5 mg tablet,delayed release (DR/EC) 10 mg PO ONCE 1 Days Qty: 2 0RF Rx Instructions: Take 2 tablets by mouth at 12:00pm the day before your procedure. polyethylene glycol 3350 [Miralax] 17 gram/dose powder 238 g PO ONCE 1 Days Qty: 238 0RF Rx Instructions: Take as directed by mouth the day before your procedure. polyethylene glycol 3350 [Miralax] 17 gram powder in packet 17 g PO DAILY Qty: 30 5RF
--- NOTE | 2021-12-18 07:37 | ECG_ITS ---
Test Reason : hypertension Blood Pressure : / mmHG Vent. Rate : 063 BPM Atrial Rate : 063 BPM P-R Int : 164 ms QRS Dur : 092 ms QT Int : 428 ms P-R-T Axes : 048 039 076 degrees QTc Int : 437 ms Normal sinus rhythm Nonspcific lateral T wave inversions Abnormal ECG When compared with ECG of 20-OCT-2017 08:43, No significant change was found Referred By: Grace Hale Electronically Signed By:Jaron Haynes
[2021-12-18 07:58] VITALS: PULSE 64; RESP 20; O2SAT 97
[2021-12-18] MEDS: Albuterol Sulfate 90 MCG 8 GM INHALER 4 PUFF INHALE (07:58)
[2021-12-18 08:05] LABS: Troponin-I High Sensitivity < 3.5 ng/L (<3.5-35.0)
[2021-12-18 08:50] VITALS: BP 136/79; PULSE 68; RESP 16; TEMP 36.7; O2SAT 97
== END 2021-12-18 08:59 | disposition home or self-care (01) ==
PROVIDERS: Student in an Organized Health Care Education/Training Program; Emergency Provider Emergency Medicine
DX: R03.0 Elevated blood-pressure reading, without diagnosis of hypertension (principal); K21.9 Gastro-esophageal reflux disease without esophagitis; R51.9 Headache, unspecified; F17.200 Nicotine dependence, unspecified, uncomplicated
CPT/HCPCS: 36415; 80053; 83690; 84484; 85025; 93005; 94640; 94664; 99284

== ENCOUNTER 2022-01-19 14:54 | Outpatient (REF) | payer OTHER, SELFPAY | END 2022-01-19 14:55 | disposition home or self-care (01) | LOC: HO.LNP 14:54 | PROVIDERS: Visit Provider Internal Medicine Medical Oncology | DX: H66.92 Otitis media, unspecified, left ear (principal) | CPT/HCPCS: 87071; 87205 ==

== ENCOUNTER 2022-02-09 09:43 | Day surgery (SDC) | payer OTHER, SELFPAY ==
--- NOTE | 2022-02-08 09:47 | HO.ANESPROP2 ---
Documented by User: Nydia Chakraborty NP 02/08/22 09:52 HPI - Anesthesia Eval Consult details Narrative: 56yo M for Upper Endoscopy and Colonoscopy [facility] Active Problems Active Problems: All Active Problems (Updated 02/03/22 @ 12:33 by Pamela Basilio RN) History of diverticulitis (Acute) Constipation (Acute) Acid reflux (Acute) Past Medical History Medical History Acid reflux COPD (chronic obstructive pulmonary disease) Diverticulitis HTN (hypertension) Smoker Family History Family History Mother Diabetes Arthritis Sleep apnea COPD (chronic obstructive pulmonary disease) Father Stomach cancer Diabetes Arthritis Sister Arthritis Surgical History Surgical History H/O colostomy History of colostomy reversal Social History Social History Household Members: Spouse Alcohol intake: current Alcohol intake frequency: does not drink Alcohol type: beer and hard liquor Patient Tobacco Use Status: Current everyday Tobacco user Cigarette Packs Per Day: 1 Are you DNR?: No Advance Directives: No Advance Directives Information Provided: Yes Current occupational status: employed Current occupation: [employer] Allergies Allergy/AdvReac Type Severity Reaction Status Date / Time No Known Allergies Allergy Unknown Verified 02/03/22 12:44 Home Medications Medication Instructions Recorded Confirmed Last Taken Type metoprolol succinate 50 mg 1 tab PO DAILY 02/03/22 02/03/22 Unknown History tablet,extended release 24 hr Exam Exam Date and Time: February 08, 2022 0947 Pertinent Lab Results Pertinent Lab Results: Laboratory Tests 12/17/21 12/17/21 23:33 23:33 WBC 8.1 Hgb 14.5 Hct 43.0 Plt Count 283 Sodium 137 Potassium 4.4 Chloride 109 H Carbon Dioxide 20 L BUN 11 Creatinine 0.92 Narrative Narrative: EKG 11/2021 Vent. Rate : 063 BPM ? ? Atrial Rate : 063 BPM ?? P-R Int : 164 ms? QRS Dur : 092 ms ? ? QT Int : 428 ms ? ? ? P-R-T Axes : 048 039 076 degrees ?? QTc Int : 437 ms ? Normal sinus rhythm Nonspcific lateral T wave inversions Abnormal ECG When compared with ECG of 20-OCT-2017 08:43, No significant change was found Assessment and Plan Assessment Anesthesia Assessment: Chart Reviewed Documented by User: Jose Luis Grey MD 02/09/22 11:55 PMFSH Past Medical History Medical History Acid reflux COPD (chronic obstructive pulmonary disease) Diverticulitis HTN (hypertension) Smoker Family History Family History Mother Diabetes Arthritis Sleep apnea COPD (chronic obstructive pulmonary disease) Father Stomach cancer Diabetes Arthritis Sister Arthritis Family history of problems with anesthesia: No Surgical History Surgical History H/O colostomy History of colostomy reversal History of Problems with Anesthesia: No Social History Social History Household Members: Spouse Alcohol intake: current Alcohol intake frequency: does not drink Alcohol type: beer and hard liquor Patient Tobacco Use Status: Current everyday Tobacco user Cigarette Packs Per Day: 1 Are you DNR?: No Advance Directives: No Advance Directives Information Provided: Yes Current occupational status: employed Current occupation: [employer] Meds Allergies Allergy/AdvReac Type Severity Reaction Status Date / Time No Known Allergies Allergy Unknown Verified 02/03/22 12:44 Home Medications Medication Instructions Recorded Confirmed Last Taken Type metoprolol succinate 50 mg 1 tab PO DAILY 02/03/22 02/03/22 Unknown History tablet,extended release 24 hr Exam Airway Mallampati Class: IV TM Dist: >3cm Neck ROM: Full Denture: Upper and Lower Heart: rrr Lungs: clear Assessment and Plan Final Anesthetic Review Family History of Problems with Anesthesia: No History of Problems with Anesthesia: No NPO: Yes ASA Class: II Final Preanesthetic Review: No Changes in Pt Med Stat, Meds/Allgs Chart Reviewed, Consent Obtained/Reviewed and Anes Risks/Benef Reviewed Patient Risk: Intermediate Procedure Risk: Low Anesthetic Plan Anesthetic Plan: MAC: Disposition: Standard PACU
[2022-02-09 06:23] VITALS: BMI 32.3
[2022-02-09 09:51] VITALS: BP 170/59; PULSE 76; RESP 18; TEMP 36.8; O2SAT 97
--- NOTE | 2022-02-09 10:00 | PC.NURSE ---
nonproductive cough ls clear
[2022-02-09] MEDS: Lactated Ringers 1,000 ML 100 ML IVCONT (10:19)
[2022-02-09 10:32] VITALS: PULSE 64; RESP 18; O2SAT 98
[2022-02-09] MEDS: Albuterol Sulfate (0.083%) 2.5 MG/3 ML VIAL.NEB INHALE (10:32)
--- NOTE | 2022-02-09 12:36 | MHC.SHP ---
Pre-Procedural Eval Section A Date of Service: 02/09/22 Section B Chief Complaint: screening,reflux disease Relevant Family History (Specify if Yes): No Relevant Social History: Tobacco Use Present Medications: see Short Stay Collaborative assessment Medical History: Significant History (Acid reflux COPD (chronic obstructive pulmonary disease) Diverticulitis HTN (hypertension) Smoker) History of Previous Operations: Relevant previous surgery/procedure and date(s) (H/O colostomy History of colostomy reversal) Allergies: Allergies Allergy/AdvReac Type Severity Reaction Status Date / Time No Known Allergies Allergy Unknown Verified 02/03/22 12:44 Review of Systems Sugical H&P ROS: Negative: Constitution, Cardiovascular, Respiratory, Neurological, Psychiatric, Hem-Onc, Allergic/Immunologic, Gastrointestinal, Genitourinary, Musculoskeletal, Integumentary, Endocrine and Eyes/Ears/Nose/Throat Exam Surgical H&P Exam: Normal: HEENT, Normal: Heart, Normal: Lungs, Normal: Extremities, Normal: Abdomen (lap scar with umbilical hernia), Normal: Skin and Normal: Neurological Plan Diagnosis/Plan: Unchanged I have reviewed the history and physical and performed a pertinent physical examination on my patient. No changes have occurred unless specified.
--- NOTE | 2022-02-09 12:38 | W.PM.OPN ---
Operative Note Operative Note Date of Service: 02/09/22 Narrative: Operative Information Procedure Description: EGD, Colonoscopy Indication: GERD, colon screening Anesthesia: MAC FLEXIBLE TRANSORAL UPPER GASTROINTESTINAL ENDOSCOPY AND COLONOSCOPY PROCEDURE NOTE UPPER ENDOSCOPY Consent: Indications for the procedure and potential complications of bleeding, perforation, reaction to medications and missed diagnosis were discussed with the patient and informed consent was obtained. Instrument: Olympus GIF H 190 J mid size upper endoscope Monitoring: Vital signs and clinical assessment, continuous EKG monitoring, Pulse oximetry, Carbon Dioxide monitoring and blood pressure monitoring were done throughout the procedure. Procedure: The patient was placed in the left lateral decubitis position and pre-procedure medications were administered and a bite block was placed. The endoscope was inserted into the mouth and advanced under direct vision to the third part of duodenum. A careful inspection was made as the upper endoscope was withdrawn including a retroflexed examination of the proximal stomach; Findings and interventions are described below. Findings: Larynx:normal Esophagus: GE junction at 45 cm, diaphragm hiatus at 45 cm, Grade I varices x 3 cords, no high risk markings. Mild esophagitis noted Stomach: Granularity and patchy erythema. Biopsies were obtained. Grade 2 flap valve on retroflexed examination of the cardia. No gastric varices seen Duodenum: Normal bulb and descending duodenum, Intervention: Biopsies as noted above COLONOSCOPY Instrument: Olympus variable stiffness pediatric scope 190L Colonoscopy Monitoring: Vital signs and clinical assessment, continuous EKG monitoring, Pulse oximetry, Carbon Dioxide monitoring and blood pressure monitoring were done throughout the procedure. Colon withdrawal time was 10 minutes. Procedure: The patient was placed in the left lateral decubitis position and pre-procedure medications were administered. After a digital rectal examination of the ano-rectum, the video colonoscope was inserted into the rectum and advanced through the colon to the cecum/TI. The colonoscope was slowly withdrawn in a retrograde panoramic fashion and the colon mucosa was carefully examined including a retroflexed view of the rectum. Findings and interventions are described below. Procedure Difficulty: easy Findings: Terminal Ileum-normal Cecum:normal Ascending Colon: few diverticula seen Transverse Colon - x1 sessile polyp 10-12 mm removed with cold snare, 6-7 mm sessile polyp removed with cold forceps Descending Colon:normal Sigmoid Colon: anastomosis noted Rectum: Retroflexion with moderate sized internal hemorrhoids, grade I Anorectum - normal Colon preparation: [place] Bowel Preparation Scale Right colon; 2 Transverse colon: 2 Left colon; 2 (0 = Unprepared colon segment with mucosa not seen due to solid stool that cannot be cleared. 1 = Portion of mucosa of the colon segment seen, but other areas of the colon segment not well seen due to staining, residual stool and/or opaque liquid. 2 = Minor amount of residual staining, small fragments of stool and/or opaque liquid, but mucosa of colon segment seen well. 3 = Entire mucosa of colon segment seen well with no residual staining, small fragments of stool or opaque liquid) Impression and Post Procedure Diagnosis: Endoscopy Findings: gastritis esophageal varices esophagitis Colonoscopy Findings: polyps internal hemorrhoids diverticular disease Plan: Await Pathology results Repeat Colonoscopy in 5 years if pre cancerous polyps, 10 yrs if hyperplastic or earlier if clinically indicated High fiber diet leaflet avoid straining at stool, epsom salts and sitz bath, anusol supps or cream work up for portal hypertension consider PPI if not taking Above findings were reviewed with the patient and relevant handouts were provided if indicated.
[2022-02-09 13:50] VITALS: BP 108/73; PULSE 74; RESP 20; TEMP 37.1; O2SAT 93
[2022-02-09 14:05] VITALS: BP 116/80; PULSE 65; RESP 20; TEMP 37.1; O2SAT 95
== END 2022-02-09 14:30 | disposition home or self-care (01) ==
PROVIDERS: Visit Provider Internal Medicine Gastroenterology
PROC: (CPT 45385; principal; 2022-02-09 11:30)
DX: Z12.11 Encounter for screening for malignant neoplasm of colon (principal); D12.3 Benign neoplasm of transverse colon; K57.30 Diverticulosis of large intestine without perforation or abscess without bleeding; K64.0 First degree hemorrhoids; K59.00 Constipation, unspecified; K21.9 Gastro-esophageal reflux disease without esophagitis; I85.00 Esophageal varices without bleeding; K20.80 Other esophagitis without bleeding; K29.50 Unspecified chronic gastritis without bleeding; K44.9 Diaphragmatic hernia without obstruction or gangrene; I10 Essential (primary) hypertension; J44.9 Chronic obstructive pulmonary disease, unspecified; Z79.899 Other long term (current) drug therapy; Z87.19 Personal history of other diseases of the digestive system; Z98.0 Intestinal bypass and anastomosis status; F17.210 Nicotine dependence, cigarettes, uncomplicated
CPT/HCPCS: 45385; 45380; 43239; 88305; 88342; 94640

== ENCOUNTER 2023-02-17 17:21 | Emergency (ER) | payer OTHER, SELFPAY ==
--- NOTE | ~2023-02-17 | XR_ITS ---
EXAMINATION: XR CHEST CLINICAL INFORMATION: Shortness of breath COMPARISON: Chest radiograph from 02/17/2021 TECHNIQUE: 2 views of the chest were obtained. FINDINGS: Emphysematous changes. Left basilar atelectasis. Interstitial prominence. No pneumothorax. Trachea is midline. Cardiac mediastinal silhouette is not enlarged. No large pleural effusion. Osseous structures are intact. Soft tissues are unremarkable. XR/XR chest 2V IMPRESSION: 1. Emphysematous changes. 2. Left basilar atelectasis. 3. Interstitial prominence.
[2023-02-17 17:54] VITALS: BP 142/90; PULSE 95; RESP 20; O2SAT 93; BMI 44.5
--- NOTE | 2023-02-17 17:55 | ED_ITS ---
HPI Narrative HPI Narrative HPI Narrative: Patient comes to the emergency room complaining of shortness of breath. Started approximately week ago, patient went to [place] to take his kids to [employer]. Patient states while he was there, he was already struggling to breath, chest tightness, wheezing. Patient returned to [place], went to work. 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 A nurse listened to his lungs and told him that he was wheezing and had chest tightness. ROS Narrative ROS Narrative ROS Narrative: Constitutional : No Weight loss, No Fever, No Chills, No Night Sweats, No Fatigue, No Malaise ENT/Mouth : No Hearing loss, No Ear Pain, No Nasal Congestion, No Sinus Pain, No Hoarseness, No sore throat, No Rhinorrhea, No Swallowing Difficulty Eyes: No Eye Pain, No Swelling, No Redness, No Foreign Body, No Discharge, No Vision Changes Cardiovascular : No Chest Pain, No SOB, No Dyspnea on Exertion, No Orthopnea, No Edema, No Palpitations Respiratory : complaining of wheezing, shortness of breath worse with exertion Gastrointestinal : No Nausea, No Vomiting, No Diarrhea, No Constipation, No abdominal Pain, No Hematochezia, No Melena Genitourinary : no irregular bleeding, No Dysuria, No Urinary Frequency, No Hematuria, No Urinary Incontinence, No Urgency, No Flank Pain, No Urinary Flow Changes, No Hesitancy Musculoskeletal : No joint pain, No Myalgias, No Joint Swelling Skin : No Skin Lesions, No rash Neuro : No Weakness, No Numbness, No Paresthesias, No Loss of Consciousness, No Dizziness, No Headache Psych : No Anxiety/Panic, No Depression, No SI/HI/AH/VH, No Social Issues, Heme/Lymph: No Bruising, No Bleeding,No Lymphadenopathy Endocrine : No Polyuria, No Polydipsia, No Temperature Intolerance [facility] Past Medical History Medical History Acid reflux COPD (chronic obstructive pulmonary disease) Diverticulitis HTN (hypertension) Smoker Surgical History H/O colostomy History of colostomy reversal Hx of colonoscopy Family History Family History Mother Diabetes Arthritis Sleep apnea COPD (chronic obstructive pulmonary disease) Father Stomach cancer Diabetes Arthritis Sister Arthritis Social History Social History Household Members: Spouse Alcohol intake: never Patient Tobacco Use Status: Current everyday Tobacco user Cigarette Packs Per Day: 1 Smoked in Last 30 Days: No Use of substances other than those prescribed or required for medical reasons: No Advance Directives: No Advance Directives Information Provided: Yes Current occupational status: employed Current occupation: [employer].Exam Exam Narrative Exam Narrative: Last Vital Signs Temp 97.8 F 02/17/23 18:46 Pulse 107 H 02/17/23 19:55 Resp 22 H 02/17/23 19:55 BP 159/83 H 02/17/23 18:46 Pulse Ox 96 02/17/23 18:46 O2 Del Method Room Air 02/17/23 18:46 BMI result Body Mass Index 44.5 Appearance: Alert. Oriented X3. No acute distress. Eyes: Pupils equal, round and reactive to light. ENT: Pharynx normal. Neck: Normal inspection. Neck supple. No lymph nodes noted. No crepitus CVS: Normal heart rate and rhythm. Pulses normal. Normal S1 and S2 Respiratory: mild bilateral wheezing, moderate air movement Abdomen: Soft and nontender. No rigidity. No distention. Skin: Skin warm and dry. Normal skin color. Normal skin turgor. Extremities: No lower extremity edema. No Lacerations. No Rash Neuro: Oriented X 3. No motor deficit. No sensory deficit. Moving all extremities. No slurred speech. CN 2 through 12 grossly intact Psych: calm, cooperative, normal affect Medications Administered Discontinued Medications Generic Name Dose Route Start Last Admin Trade Name Orquidea PRN Reason Stop Dose Admin Albuterol Sulfate 10 mg 02/17/23 19:16 02/17/23 19:53 Albuterol Sulfate (0.083%) 2.5 Mg/3 Ml Vial.Neb INHALE 02/17/23 19:17 10 mg ONCE ONE Administration Albuterol Sulfate 7.5 mg/ 0 mg 02/17/23 18:00 02/17/23 18:22 Albuterol/Ipratropium 3 ml INHALE 02/17/23 18:01 5 each ONCE ONE Administration Magnesium Sulfate 2 gm in 50 mls @ 25 mls/hr 02/17/23 19:16 02/17/23 19:39 Magnesium Sulfate/H2o IV 02/17/23 21:15 25 mls/hr ONCE ONE Administration Methylprednisolone Sodium Succinate 125 mg 02/17/23 18:00 02/17/23 18:47 Methylprednisolone Sod Succ 125 Mg/2 Ml Vial IVPUSH 02/17/23 18:01 125 mg ONCE ONE Administration Medical Decision Making Medical Decision Making [facility] Narrative: - patient was given IV Solu-Medrol, magnesium, 2 nebulization treatments. Patient states that she feels much better - patient was ambulated the emergency room, oxygen saturation dropped to 92%. Patient does not have a formal diagnosis of COPD. However, patient does have wheezing, x-rays suggestive of COPD. Patient will need pulmonary functions test through his primary care physician. - my interpretation of chest x-ray, hyperinflated lungs, no infiltrates - antibiotics not indicated at this time Differential Diagnosis Differential Diagnoses: The differential diagnosis associated with the presentation includes ( Asthma exacerbation, bronchitis, new onset COPD) Admission/Observation Consideration of admission/observation: Escalation of care including admission/observation considered ( in nebulization treatment, admission was considered.) Lab Data [facility] Lab Attestation statement: I reviewed the patient's lab results. 02/17/23 18:08 02/17/23 18:08 Labs: Lab Results 02/17/23 02/17/23 02/17/23 Range/Units 18:08 18:08 18:08 WBC 10.3 (4.8-10.8) X10*3/uL RBC 5.00 (4.60-5.80) X10*6/uL Hgb 15.4 (14.0-18.0) g/dl Hct 46.6 (42.0-52.0) % MCV 93.2 (80.0-98.0) fL MCH 30.8 (27.0-33.0) pg MCHC 33.0 (31.0-36.0) g/dl RDW 15.0 (11.0-16.0) % Plt Count 292 (160-400) X10*3/uL MPV 9.8 (9.4-12.4) fL Immature Gran % (Auto) 0.3 (0.0-0.4) % Neut % (Auto) 58.4 (45-73) % Lymph % (Auto) 28.3 (20-40) % [place] % (Auto) 8.4 (2-11) % Eos % (Auto) 4.2 H (0-4) % Baso % (Auto) 0.4 (0-2) % Lymph # (Auto) 2.9 (1.2-4.9) X10*3/uL [place] # (Auto) 0.9 (0.1-1.2) X10*3/uL Eos # (Auto) 0.4 (0.0-0.4) X10*3/uL Baso # (Auto) 0.0 (0.0-0.2) X10*3/uL Abs Immat Gran (auto) 0.03 (0.00-0.03) X10*3/uL Absolute Neuts (auto) 6.0 (2.0-8.3) x10*3/uL Absolute Nucleated RBC 0.000 (0.0-0.012) X10*3/uL Nucleated RBC % (auto) 0.0 (0.0-0.2) /100WBC Sodium 139 (135-145) mmol/L Potassium 4.0 (3.3-5.1) mmol/L Chloride 106 (96-108) mmol/L Carbon Dioxide 23 (22-29) mmol/L Anion Gap 14 (12-20) BUN 14 (9-16) mg/dL Creatinine 0.92 (0.5-1.4) mg/dL Estim Creat Clear Calc 105.9 Estimated GFR > 60 Random Glucose 101 (60-115) mg/dL Calcium 9.8 D (8.4-10.2) mg/dL COVID-19 (YUMIKO) Negative (Negative) COVID-19 Clin Com See Note Independent Interpretation I performed an independent interpretation of an: Plain X-Ray Radiology Impression Discussion of test interpretation with radiology: I have reviewed the radiologist's reading. Radiologist Impression: Emphysematous changes. Left basilar atelectasis. Interstitial prominence. No pneumothorax. Trachea is midline. Cardiac mediastinal silhouette is not enlarged. No large pleural effusion. Osseous structures are intact. Soft tissues are unremarkable. XR/XR chest 2V IMPRESSION: 1.? Emphysematous changes. 2.? Left basilar atelectasis. 3.? Interstitial prominence. Critical Care Time Critical Care Time Critical Care Time: Yes Total Critical Care Time: 45 Attestation: I have personally provided critical care time. Time includes review of lab data, radiology results, discussion with consultants, and monitoring for potential decompensation. Intervention performed as documented. Discharge Plan Discharge Clinical Impression: Asthma Patient Disposition: Home, Self-Care Instructions: Asthma (ED) Additional Instructions: it is very likely that you have COPD. You will need to be seen by your primary care physician and possibly be referred for pulmonary function tests. Please follow-up with your primary care physician tomorrow. If you have any worsening or new symptoms, please return to the emergency room or call 911 Prescriptions: New albuterol sulfate 90 mcg/actuation HFA aerosol inhaler 1 inh inhalation QID PRN (Reason: shortness of breath or wheezing) Qty: 8.5 0 RF prednisone 50 mg tablet 50 mg PO DAILY Qty: 4 0RF No Action albuterol sulfate 90 mcg/actuation aerosol powdr breath activated 2 inh inhalation Q4-6H PRN (Reason: shortness of breath or wheezing) Qty: 1 0RF metoprolol succinate 50 mg tablet extended release 24 hr 1 tab PO DAILY hydrochlorothiazide 25 mg tablet 25 mg PO DAILY Qty: 30 0RF omeprazole 20 mg capsule,delayed release(DR/EC) 20 mg PO DAILY Qty: 30 5RF docusate sodium [Colace] 100 mg capsule 200 mg PO BEDTIME Qty: 60 5RF Stand Alone Forms: Work/School Release
[2023-02-17 18:15] LABS: Basophils Percent Auto 0.4 % (0-2); Eosinophils Absolute Auto 0.4 X10*3/uL (0.0-0.4); Eosinophils Percent Auto 4.2 % (0-4); Hematocrit 46.6 % (42.0-52.0); Hemoglobin 15.4 g/dl (14.0-18.0); Imm Gran Abs Auto 0.03 X10*3/uL (0.00-0.03); Imm Gran Pct Auto 0.3 % (0.0-0.4); Lymphocytes Absolute Auto 2.9 X10*3/uL (1.2-4.9); Lymphocytes Percent Auto 28.3 % (20-40); MANUAL DIFF FLAG NO; Mean Corpuscular Hemoglobin 30.8 pg (27.0-33.0); Mean Corpuscular Volume 93.2 fL (80.0-98.0); Mean Platelet Volume 9.8 fL (9.4-12.4); Monocytes Absolute Auto 0.9 X10*3/uL (0.1-1.2); Monocytes Percent Auto 8.4 % (2-11); Neutrophils Percent Auto 58.4 % (45-73); Platelet Count 292 X10*3/uL (160-400); White Blood Count 10.3 X10*3/uL (4.8-10.8)
--- OUTSIDE RECORDS SUMMARY | 2023-02-17 18:16 | XMS_ITS ---
Author Name Leonard Boston Address [address] [place] [address] Organization Leonard Boston III, MD Address [address] [place] [address] Care Team Providers Care Customer Engagement Specialist Name Role Phone Leonard Boston [facility] [phone] PROBLEMS Type Condition ICD9-CM Code ZXG25-QM Code Onset Dates Condition Status SNOMED Code Problem Edentulous K08.109 Active 962645908 Problem Essential hypertension I10 Active 72699365 Problem Cerebral aneurysm, nonruptured I67.1 Active 89838008 Problem Hyperlipidemia E78.5 Active 50405279 Problem Umbilical hernia without obstruction and without gangrene K42.9 Active 713166923 Problem BPH (benign prostatic hypertrophy) N40.0 Active 811503749 Problem Morbid obesity E66.01 Active 555642117 Problem Simple chronic bronchitis J41.0 Active 91194164 Problem Tobacco dependence F17.200 Active 66051 005 Problem Mild intermittent asthma without complication J45.20 Active 859403101 Problem GERD without esophagitis K21.9 Active 632282717 ALLERGIES No Known Allergies ENCOUNTERS Encounter Location Date Diagnosis Leonard Boston III, MD [address] [place] [address] [place] [address] Jan, Hyperlipidemia E78.5 ; Cerebral aneurysm, nonruptured I67.1 ; Essential hypertension I10 and Syncopal episodes R55 Leonard Boston III, MD [address] [place] [address] [place] [address] Jan, Leonard Boston III, MD [address] [place] [address] [place] [address] Dec, Cerebral aneurysm, nonruptured I67.1 Leonard Boston III, MD [address] [place] [address] [place] [address] November, Cerebral aneurysm, nonruptured I67.1 Leonard Boston III, MD [address] [place] [address] [place] [address] November, Hyperlipidemia E78.5 ; Cerebral aneurysm, nonruptured I67.1 ; Essential hypertension I10 ; Obesity (BMI 30.0-34.9) E66.9 ; BPH (benign prostatic hypertrophy) N40.0 ; GERD without esophagitis K21.9 ; Mild intermittent asthma without complication J45.20 ; Tobacco dependence F17.200 ; Umbilical hernia without obstruction and without gangrene K42.9 and Morbid obesity E66.01 Leonard Boston III, MD [address] [place] [address] [place] [address] Feb, Leonard Boston III, MD [address] [place] [address] [place] [address] Jan, Left non-suppurative otitis media H65.92 ; Other hearing loss of 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 H91.8X2 ; Hyperlipidemia E78.5 ; GERD without esophagitis K21.9 ; Mild intermittent asthma without complication J45.20 ; Tobacco dependence F17.200 ; Essential hypertension I10 and Obesity (BMI 30.0-34.9) E66.9 Leonard Boston III, MD [address] [place] [address] [place] [address] Dec, Leonard Boston III, MD [address] [place] [address] [place] [address] Dec, Annual physical exam Z00.00 ; Otitis media, unspecified, left ear H66.92 ; Hyperlipidemia E78.5 ; GERD without esophagitis K21.9 ; Mild intermittent asthma without complication J45.20 ; Tobacco dependence F17.200 ; Cerebral aneurysm, nonruptured I67.1 ; Essential hypertension I10 ; Obesity (BMI 30.0-34.9) E66.9 and Umbilical hernia without obstruction and without gangrene K42.9 Leonard Boston III, MD [address] [place] [address] [place] [address] Dec, Hyperlipidemia E78.5 ; GERD without esophagitis K21.9 ; Mild intermittent asthma without complication J45.20 ; Tobacco dependence F17.200 ; Cerebral aneurysm, nonruptured I67.1 ; Essential hypertension I10 ; Obesity (BMI 30.0-34.9) E66.9 ; Umbilical hernia without obstruction and without gangrene K42.9 and Left hip pain M25.552 Leonard Boston III, MD [address] [place] [address] Oct, Leonard Boston III, MD [address] [place] [address] [place] [address] 16 Feb, 2021 Hyperlipidemia E78.5 ; Obesity (BMI 30.0-34.9) E66.9 ; Cough R05 ; Chest discomfort R07.89 ; Tobacco dependence F17.200 ; Cerebral aneurysm, nonruptured I67.1 and Essential hypertension I10 Leonard Boston III, MD [address] [place] [address] [place] [address] Jan, Hyperlipidemia E78.5 ; Cough, persistent R05 ; GERD without esophagitis K21.9 ; Mild intermittent asthma without complication J45.20 ; Tobacco dependence F17.200 ; Essential hypertension I10 and Obesity (BMI 30.0-34.9) E66.9 Leonard Boston III, MD [address] [place] [address] [place] [address] 05 Aug, 2020 Hyperlipidemia E78.5 ; GERD without esophagitis K21.9 ; Mild intermittent asthma without complication J45.20 ; Tobacco dependence F17.200 ; Simple chronic bronchitis J41.0 ; Cerebral aneurysm, nonruptured I67.1 ; Essential hypertension I10 ; Obesity (BMI 30.0-34.9) E66.9 ; Edentulous K08.109 and Umbilical hernia without obstruction and without gangrene K42.9 IMMUNIZATIONS Vaccine Route Administration Date Status Influenza, quad Unknown May 26, 2020 Administered Influenza, quad Unknown May 14, 2021 Administered Td Unknown Apr 25, 2019 Administered COVID- 19 Vaccine Unknown Aug 05, 2021 Administer ed COVID- 19 Vaccine Unknown December 19, 2020 Administer ed COVID- 19 Vaccine Unknown November 21, 2020 Administ ered SOCIAL HISTORY Qualifiers Date Current Smoker REASON FOR REFERRAL FUNCTIONAL STATUS PLAN OF CARE Activity Details VITAL SIGNS Height 67 in 2022-12-06 Height 67 in 2022-02-02 Height 67 in 2022-01-19 Height 67 in 2021-12-25 Height 67 in 2021-03-09 Height 67 in 2021-02-16 Height 67 in 2020-08-29 Weight 259 lbs 2022-12-06 Weight 250 lbs 2022-02-02 Weight 253 lbs 2022-01-19 Weight 248 lbs 2021-12-25 Weight 252 lbs 2021-03-09 Weight 250 lbs 2021-02-16 Weight 241 lbs 2020-08-29 BMI 40.56 kg/m2 2022-12-06 BMI 39.15 kg/m2 2022-02-02 BMI 39.62 kg/m2 2022-01-19 BMI 38.84 kg/m2 2021-12-25 BMI 39.46 kg/m2 2021-03-09 BMI 39.15 kg/m2 2021-02-16 BMI 37.74 kg/m2 2020-08-29 Heart Rate 99 /min 2022-12-06 Heart Rate 90 /min 2022-02-02 Heart Rate 76 /min 2022-01-19 Heart Rate 90 /min 2021-12-25 Heart Rate 88 /min 2021-03-09 Heart Rate 91 /min 2021-02-16 Heart Rate 86 /min 2020-08-29 Temperature 97.2 degrees Fahrenheit Temperature 96.7 degrees Fahrenheit Temperature 97.1 degrees Fahrenheit Temperature 97.1 degrees Fahrenheit Temperature 97.3 degrees Fahrenheit Temperature 98.1 degrees Fahrenheit Temperature 97.1 degrees Fahrenheit Blood pressure systolic 140 mm Hg Blood pressure diastolic 80 mm Hg 2022-11 MEDICATIONS Medication Instructions Dosage Frequency Start Date End Date Duration Status CVS Purelax 17 GM/SCOOP (Prior Auth#:[id number]) Active Albuterol Sulfate HFA 108 (90 Base) MCG/ACT 6 every 4 hrs 2 puffs as needed 4h November, 30 days Active Tadalafil 20 MG Orally Once a day 1 tablet 24h Jan, November, 30 days Active hydroCHLOROthiazide 25 MG Orally once a day as directed 24h 30 days Active Metoprolol Succinate ER 50 MG Orally Once a day 1 tablet 24h Dec, 30 days Active PROCEDURES Procedure Date Ordered Result Body Site URINE-NO MICRO January 19, 2022 RESULTS Name Result Date Reference Range URINE DIP STICK 2022-01-19 SG 1.015 pH 7.0 KAMRAN Negative NIT Negative PRO 0.15 GLU Negative KET Negative UBG 0.2 BHAVIN Negative BLD Negative Menstrating Routine Culture 2022-01-19 CT chest w con 2021-03-24 Complete Blood Count Auto Diff 2021-03-11 White Blood Count 7.2 4.8-10.8 Red Blood Count 4.88 4.60-5.80 Hemoglobin 15.3 14.0-18.0 Hematocrit 45.6 42-52 Mean Corpuscular Volume 93.4 80-9 8 Mean Corpuscular Hemoglobin 31.4 27.0-33.0 Mean Corpuscular HGB Conc 33.6 31 .0-36.0 Red Cell Distribution Width 14.7 11.0-16.0 Platelet Count 297 160-400 Mean Platelet Volume 10.6 9.4-12. 4 Neutrophils Percent Auto 55.3 45- 73 Imm Gran Pct Auto 0.3 0.0-0.4 Lymphocytes Percent Auto 33.4 20- 40 Monocytes Percent Auto 8.1 2-11 Eosinophils Percent Auto 2.5 0-4 Basophils Percent Auto 0.4 0-2 NRBC Pct Auto 0.0 0.0-0.2 Neutrophils Absolute Auto 4.0 2. 0-8.3 Imm Gran Abs Auto 0.02 0.00-0.03 Lymphocytes Absolute Auto 2.4 1. 2-4.9 Monocytes Absolute Auto 0.6 0.1- 1.2 Eosinophils Absolute Auto 0.2 0. 0-0.4 Basophils Absolute Auto 0.0 0.0- 0.2 NRBC Abs Auto 0.000 0.0-0.012 Comprehensive Met. Panel 2021-03-11 Sodium 137 135-145 Potassium 4.7 3.3-5.1 Chloride 104 96-108 Carbon Dioxide 27 22-29 Anion Gap 11 12-20 Blood Urea Nitrogen 12 9-16 Creatinine 0.88 0.5-1.4 Estimated Glomerular Filt Rate >60 Glucose Random 105 60-115 Calcium 8.5 8.4-10.2 Bilirubin Total 0.3 0.0-1.0 Aspartate Amino Transferase 26 5-37 Alanine Aminotransferase 41 0-4 0 Total Protein 7.1 6.5-8.0 Albumin Level 3.7 3.5-5.0 Alkaline Phosphatase 95 39-117 T Spot TB 2021-03-11 TSpotTB Negative SeeBelow TS Panel A 0 TS Panel B 0 TS Negative Control Passed TS Positive Control Passed XR chest 2V 2021-02-17 Complete Blood Count Auto Diff 2020-09-24 White Blood Count 7.2 4.8-10.8 Red Blood Count 4.95 4.60-5.80 Hemoglobin 15.6 14.0-18.0 Hematocrit 46.2 42-52 Mean Corpuscular Volume 93.3 80-9 8 Mean Corpuscular Hemoglobin 31.5 27.0-33.0 Mean Corpuscular HGB Conc 33.8 31 .0-36.0 Red Cell Distribution Width 14.1 11.0-16.0 Platelet Count 305 160-400 Mean Platelet Volume 10.4 9.4-12. 4 Neutrophils Percent Auto 55.7 45- 73 Imm Gran Pct Auto 0.3 0.0-0.4 Lymphocytes Percent Auto 32.7 20- 40 Monocytes Percent Auto 8.8 2-11 Eosinophils Percent Auto 2.1 0-4 Basophils Percent Auto 0.4 0-2 NRBC Pct Auto 0.0 0.0-0.2 Neutrophils Absolute Auto 4.0 2. 0-8.3 Imm Gran Abs Auto 0.02 0.00-0.03 Lymphocytes Absolute Auto 2.4 1. 2-4.9 Monocytes Absolute Auto 0.6 0.1- 1.2 Eosinophils Absolute Auto 0.2 0. 0-0.4 Basophils Absolute Auto 0.0 0.0- 0.2 NRBC Abs Auto 0.000 0.0-0.012 Comprehensive [place]. Panel Fast 2020-09-24 Sodium 136 135-145 Potassium 4.2 3.3-5.1 Chloride 104 96-108 Carbon Dioxide 26 22-29 Anion Gap 10 12-20 Blood Urea Nitrogen 10 9-16 Creatinine 0.87 0.5-1.4 Estimated Glomerular Filt Rate >60 Glucose Fasting 104 60-99 Calcium 8.9 8.4-10.2 Bilirubin Total 0.5 0.0-1.0 Aspartate Amino Transferase 29 5-37 Alanine Aminotransferase 56 0-4 0 Total Protein 7.2 6.5-8.0 Albumin Level 3.9 3.5-5.0 Alkaline Phosphatase 113 39-117 Lipid Panel 2020-09-24 Triglycerides 68 Cholesterol 192 LDL Cholesterol Calculated 141 HDL Cholesterol 38 Prostate Specific Antigen Scr 2020-09-24 Prostate Specific Antigen Scr 0.59 <0.05-4.0 Vitamin D 25-OH Total 2020-09-24 Vitamin D 25-OH Total 11.6 >30 REASON FOR VISIT Annual Exam, Concern, Lab order form, Needs call back from MD, Annual Exam, MRA denied CTA will be attemped to get approval , MRA request, Cerebral aneurysm, non-ruptured, Asthma, Hyperlipidemia, GERD, Tobacco dependence, Hypertension, Benign prostatic hypertrophy, needs RX for Metoprolol succ 50mg, Telehealth, umbilical hernia, Hyperlipidemia, Obesity, gerd, tobacco dependence, obesity, pt has appt for colonoscopy, Annual Exam, Hypertension, Left hip pain, Tobacco dependence, Obesity, Asthma, about why pt has not been called for colonoscopy , GERD , Hyperlipidedmia, Substernal chest pain, Tobacco dependence, rib pain left side, Asthm, Tobacco dependence, Hypertension, New Patient CHP Insurance Providers Health Insurance Type Health Plan Insurance Address Health Plan Insurance Phone Health Plan Insurance Name Health Plan Coverage Dates Member ID Patient Relationship to Subscriber Patient Address Patient Phone Patient Name Patient Date of Subscriber ID Subscriber Name Subscriber Date of Group No [employer] [address] [facility] [id number] [employer] self NICKY PÉREZ [id number]
[2023-02-17 18:22] VITALS: PULSE 89; RESP 20; O2SAT 94
[2023-02-17] MEDS: Albuterol Sulfate 7.5 MG, Albuterol/Iprat 2.5/0.5MG 3 ML 3 ML INHALE (18:22)
[2023-02-17 18:36] LABS: Anion Gap 14 (12-20); Blood Urea Nitrogen 14 mg/dL (9-16); Calcium 9.8 mg/dL (8.4-10.2); Carbon Dioxide 23 mmol/L (22-29); Chloride 106 mmol/L (96-108); Creatinine Clr Calc Pharmacy 105.9; Estimated Glomerular Filt Rate > 60; Glucose Random 101 mg/dL (60-115); Sodium 139 mmol/L (135-145)
[2023-02-17 18:46] VITALS: BP 159/83; PULSE 107; RESP 22; TEMP 36.6; O2SAT 96
[2023-02-17] MEDS: methylPREDNISolone Sod Succ 125 MG/2 ML VIAL IVPUSH (18:47)
[2023-02-17 18:51] LABS: COVID-19 Test Negative (Negative); IDNOW Serial# 08D9AD1C
[2023-02-17] MEDS: Magnesium Sulfate/H2O 2 GM/50 ML PIGGYBACK IV (19:39)
[2023-02-17] MEDS: Albuterol Sulfate (0.083%) 2.5 MG/3 ML VIAL.NEB 10 MG INHALE (19:53)
[2023-02-17 19:55] VITALS: PULSE 107; RESP 22; O2SAT 89
[2023-02-17 21:40] VITALS: BP 155/88; PULSE 102; RESP 22; O2SAT 94
== END 2023-02-17 21:52 | disposition home or self-care (01) ==
PROVIDERS: Physician Assistant Medical; Emergency Provider Emergency Medicine; PCP Internal Medicine Medical Oncology
DX: J45.909 Unspecified asthma, uncomplicated (principal); R06.02 Shortness of breath; R07.89 Other chest pain; F17.210 Nicotine dependence, cigarettes, uncomplicated; Z20.822 Contact with and (suspected) exposure to COVID-19; Z20.828 Contact with and (suspected) exposure to other viral communicable diseases; Z71.6 Tobacco abuse counseling; Z79.899 Other long term (current) drug therapy
CPT/HCPCS: 71046; 80048; 85025; 87635; 94640; 96374; 96375; 99284; J2930; J3475

== ENCOUNTER 2023-02-18 09:18 | Outpatient (REF) | payer OTHER, SELFPAY ==
[2023-02-18 10:58] LABS: MANUAL DIFF FLAG NO
[2023-02-18 11:02] LABS: Basophils Percent Auto 0.2 % (0-2); Eosinophils Absolute Auto 0.1 X10*3/uL (0.0-0.4); Eosinophils Percent Auto 0.5 % (0-4); Hematocrit 45.6 % (42.0-52.0); Hemoglobin 14.9 g/dl (14.0-18.0); Imm Gran Abs Auto 0.07 X10*3/uL (0.00-0.03); Imm Gran Pct Auto 0.5 % (0.0-0.4); Lymphocytes Percent Auto 13.5 % (20-40); Mean Corpuscular HGB Conc 32.7 g/dl (31.0-36.0); Mean Corpuscular Hemoglobin 30.8 pg (27.0-33.0); Mean Corpuscular Volume 94.4 fL (80.0-98.0); Mean Platelet Volume 9.9 fL (9.4-12.4); Monocytes Percent Auto 6.6 % (2-11); Neutrophils Absolute Auto 11.5 x10*3/uL (2.0-8.3); Neutrophils Percent Auto 78.7 % (45-73); Platelet Count 293 X10*3/uL (160-400); Red Blood Count 4.83 X10*6/uL (4.60-5.80); Red Cell Distribution Width 15.1 % (11.0-16.0); White Blood Count 14.6 X10*3/uL (4.8-10.8)
[2023-02-18 11:12] LABS: Alanine Aminotransferase 32 U/L (0-40); Albumin Level 3.6 g/dL (3.5-5.0); Alkaline Phosphatase 96 U/L (39-117); Anion Gap 16 (12-20); Aspartate Amino Transferase 19 U/L (5-37); Bilirubin Total 0.2 mg/dL (0.0-1.0); Blood Urea Nitrogen 11 mg/dL (9-16); Calcium 9.6 mg/dL (8.4-10.2); Carbon Dioxide 22 mmol/L (22-29); Chloride 105 mmol/L (96-108); Cholesterol 187 mg/dL; Estimated Glomerular Filt Rate > 60; Glucose Fasting 83 mg/dL (60-99); HDL Cholesterol 38 mg/dL; LDL Cholesterol Calculated 131 mg/dl; Potassium 4.1 mmol/L (3.3-5.1); Sodium 139 mmol/L (135-145); Total Protein 8.2 g/dL (6.5-8.0); Triglycerides 92 mg/dL
[2023-02-18 12:09] LABS: B Type Natriuretic Peptide 11 pg/mL (<100)
== END 2023-02-18 09:19 | disposition home or self-care (01) ==
LOC: HO.10HDL 09:18
PROVIDERS: Visit Provider Internal Medicine Medical Oncology
DX: E78.5 Hyperlipidemia, unspecified (principal); I67.1 Cerebral aneurysm, nonruptured; I10 Essential (primary) hypertension; R55 Syncope and collapse
CPT/HCPCS: 36415; 80053; 80061; 83880; 85025

== ENCOUNTER 2023-03-17 08:15 | Outpatient (REF) | payer OTHER, SELFPAY ==
--- NOTE | 2023-03-17 | PFT_ITS ---
INDICATION: Dyspnea. SPIROMETRY: FEV1 to FVC of 72% with an FEV1 of 1.62 L, which is 42% predicted. FVC of 2.23 L, which is 46% predicted. No significant response to bronchodilator is noted. Maximum voluntary ventilation 36% predicted. LUNG VOLUMES: Total lung capacity 78% predicted with an expiratory reserve volume of 16% predicted. DIFFUSION CAPACITY: DLCO 67% predicted. To note, the diffusion capacity corrected for alveolar volume, improved to 104% predicted. COMPARISONS: None. INTERPRETATION: No definitive obstructive ventilatory defects, although there is evidence of small airway disease. No significant response to bronchodilator is noted. There is also a severe decrease in the maximum voluntary ventilation secondary to deconditioning and also worsening dynamic inspiratory capacity due to the small airway disease. Lung volumes also demonstrate a restrictive ventilatory defect consistent with mild restrictive lung disease, impart due to his body habitus. His expiratory reserve volume is down to 16% predicted. The patient does have evidence of air trapping, likely secondary to the small airway disease. There is also a mild diffusion impairment, but it corrects to normal when correcting for the alveolar volume and his body habitus. If asthma is in the differential, methacholine challenge may be helpful in assessing for hyperreactive airways. Otherwise, clinical correlation warranted. Jose M Braden MD MR/MODL / [id number]
== END 2023-03-17 08:16 | disposition home or self-care (01) ==
LOC: HO.RESP 08:15
PROVIDERS: PCP Internal Medicine Medical Oncology; Visit Provider Internal Medicine Medical Oncology
DX: J45.20 Mild intermittent asthma, uncomplicated (principal)
CPT/HCPCS: 94010; 94727; 94729

== ENCOUNTER → 2023-03-17 08:20 | Outpatient (BNV) | payer OTHER, SELFPAY | PROVIDERS: PCP Internal Medicine Medical Oncology; Visit Provider Hospitalist | DX: J43.9 Emphysema, unspecified (principal); G47.33 Obstructive sleep apnea (adult) (pediatric) | CPT/HCPCS: 94060; 94727; 94729 ==

== ENCOUNTER 2023-04-08 22:57 | Emergency (ER) | payer OTHER, SELFPAY ==
--- NOTE | 2023-04-08 07:25 | ECG_ITS ---
Test Reason : repeat Blood Pressure : / mmHG Vent. Rate : 076 BPM Atrial Rate : 076 BPM P-R Int : 134 ms QRS Dur : 090 ms QT Int : 384 ms P-R-T Axes : 047 047 065 degrees QTc Int : 432 ms Normal sinus rhythm Cannot rule out Inferior infarct , age undetermined T-wave inversion in Lateral leads Abnormal ECG When compared with ECG of 08-APR-2023 23:04, No significant change was found Referred By: Patrice Mcdermott Electronically Signed By:DIANE MCELROY
--- NOTE | 2023-04-08 23:01 | ECG_ITS ---
Test Reason : CHEST PAIN Blood Pressure : / mmHG Vent. Rate : 080 BPM Atrial Rate : 080 BPM P-R Int : 128 ms QRS Dur : 086 ms QT Int : 374 ms P-R-T Axes : 045 043 071 degrees QTc Int : 431 ms Normal sinus rhythm Normal ECG When compared with ECG of 18-DEC-2021 07:39, No significant change was found Referred By: Generic ED Physician Electronically Signed By:DIANE MCELROY
[2023-04-08 23:21] VITALS: BP 140/81; PULSE 77; RESP 20; TEMP 37; O2SAT 95; BMI 41.0
[2023-04-08 23:22] LABS: MANUAL DIFF FLAG NO
[2023-04-08 23:26] LABS: Basophils Percent Auto 0.3 % (0-2); Eosinophils Absolute Auto 0.1 X10*3/uL (0.0-0.4); Eosinophils Percent Auto 0.4 % (0-4); Hematocrit 43.3 % (42.0-52.0); Hemoglobin 14.3 g/dl (14.0-18.0); Imm Gran Abs Auto 0.09 X10*3/uL (0.00-0.03); Imm Gran Pct Auto 0.7 % (0.0-0.4); Lymphocytes Absolute Auto 3.3 X10*3/uL (1.2-4.9); Mean Corpuscular Volume 93.7 fL (80.0-98.0); Mean Platelet Volume 9.7 fL (9.4-12.4); Monocytes Absolute Auto 0.8 X10*3/uL (0.1-1.2); Monocytes Percent Auto 6.4 % (2-11); Neutrophils Absolute Auto 7.9 x10*3/uL (2.0-8.3); Neutrophils Percent Auto 65.2 % (45-73); Platelet Count 284 X10*3/uL (160-400); Red Blood Count 4.62 X10*6/uL (4.60-5.80); Red Cell Distribution Width 15.7 % (11.0-16.0); White Blood Count 12.1 X10*3/uL (4.8-10.8)
[2023-04-08 23:36] LABS: Anion Gap 8 (12-20); Blood Urea Nitrogen 17 mg/dL (9-16); Calcium 9.5 mg/dL (8.4-10.2); Carbon Dioxide 31 mmol/L (22-29); Chloride 104 mmol/L (96-108); Estimated Glomerular Filt Rate > 60; Glucose Random 117 mg/dL (60-115); Sodium 139 mmol/L (135-145)
[2023-04-08 23:49] LABS: Troponin-I High Sensitivity < 2.7 ng/L (<3.5-35.0)
--- NOTE | 2023-04-09 02:00 | ED_ITS ---
HPI - Chest Pain General Chief Complaint: Chest Pain Stated Complaint: Chest pain Time Seen by Provider: 04/08/23 23:30 Source: patient Mode of arrival: ambulatory Limitations: no limitations History of Present Illness HPI narrative: Patient is Obese with history of COPD, hypertension possible sleep apnea not diagnosed yet comes here for increased shortness of breath and chest tightness for last 2 weeks does have mostly dry cough with occasional mucopurulent expectoration no fever no chills no leg swelling Related Data Home Medications Medication Instructions Recorded Confirmed metoprolol succinate 50 mg 1 tab PO DAILY 02/03/22 03/01/22 tablet,extended release 24 hr Previous Rx's Medication Instructions Recorded albuterol sulfate 90 mcg/actuation 2 inh inhalation Q4-6H PRN 04/29/20 breath activated powder inhaler shortness of breath or wheezing #1 ea hydrochlorothiazide 25 mg tablet 25 mg PO DAILY #30 tabs 12/18/21 docusate sodium 100 mg capsule 200 mg (2 x 100 mg) PO BEDTIME #60 03/01/22 (Colace) caps omeprazole 20 mg capsule,delayed 20 mg PO DAILY #30 caps 03/01/22 release albuterol sulfate 90 mcg/actuation 1 inh inhalation QID PRN shortness 02/17/23 aerosol inhaler of breath or wheezing #8.5 grams prednisone 50 mg tablet 50 mg PO DAILY #4 tabs 02/17/23 albuterol sulfate 90 mcg/actuation 2 puff inhalation Q4-6H PRN 04/09/23 aerosol inhaler (ProAir HFA) bronchospasm #8.5 grams prednisone 20 mg tablet 40 mg (2 x 20 mg) PO DAILY #10 tabs 04/09/23 Allergies Allergy/AdvReac Type Severity Reaction Status Date / Time No Known Allergies Allergy Unknown Verified 03/01/22 09:15 Review of Systems 2 Review of Systems: Yes all other systems are reviewed and are negative PMFSH Past Medical History Medical History Smoker COPD (chronic obstructive pulmonary disease) HTN (hypertension) Acid reflux Diverticulitis Surgical History Hx of colonoscopy History of colostomy reversal H/O colostomy Family History Family History Mother Diabetes Arthritis Sleep apnea COPD (chronic obstructive pulmonary disease) Father Stomach cancer Diabetes Arthritis Sister Arthritis Social History Social History Household Members: Spouse Alcohol intake: current Alcohol intake frequency: holidays/special occasions only Alcohol type: beer and hard liquor Patient Tobacco Use Status: Current everyday Tobacco user Cigarette Packs Per Day: 1 Smoked in Last 30 Days: Yes Use of substances other than those prescribed or required for medical reasons: No Advance Directives: No Advance Directives Information Provided: No Current occupational status: employed Current occupation: [employer] Physical Exam 2 Vital Signs: Vital Signs: Last Vital Signs Temp 98.0 F 04/09/23 02:08 Pulse 72 04/09/23 02:48 Resp 28 H 04/09/23 02:48 BP 137/78 04/09/23 02:08 Pulse Ox 94 04/09/23 02:08 O2 Del Method Room Air 04/09/23 02:08 BMI result Body Mass Index 41.0 Appearance: Alert. Oriented X3. No acute distress. Falling sleep obese Eyes: PERRLA, No Nystagmus ENT: Pharynx normal. Oral Mucosa moist Neck: Normal inspection. Neck supple. CVS: Normal heart rate and rhythm. Pulses normal. Respiratory: Mode Equal air entry bilateral, bilateral wheezing no rales Abdomen: Soft and nontender. Bowel sounds are present, no mass palpable, no CVA tenderness Skin: Skin warm and dry. Normal skin color. Normal skin turgor. Extremities: No lower extremity edema. No calf tenderness Neuro: Oriented X 3. No motor deficit. Medications Administered Discontinued Medications Generic Name Dose Route Start Last Admin Trade Name Freq PRN Reason Stop Dose Admin Albuterol Sulfate 5 mg/ 7.5 mg 04/09/23 02:42 04/09/23 02:47 Albuterol Sulfate 2.5 mg INHALE 04/09/23 02:43 7.5 mg ONCE ONE Administration Methylprednisolone Sodium Succinate 125 mg 04/09/23 02:21 04/09/23 03:52 Methylprednisolone Sod Succ 125 Mg/2 Ml Vial IVPUSH 04/09/23 02:22 125 mg ONCE ONE Administration Medical Decision Making Medical Decision Making MDM Narrative: Patient obese for increased shortness of breath with history of COPD likely has sleep apnea patient scheduled for sleep studies . Patient has gained weight last 6 months patient felt better after nebulizer treatment and IV steroids will continue same Differential Diagnosis Differential Diagnoses: The differential diagnosis associated with the presentation includes Asthma/COPD/Pickwickian syndrome/sleep apnea/pneumonia/CHF/ACS/CO2 narcosis Admission/Observation Consideration of admission/observation: Escalation of care including admission/observation considered Lab Data MDM Lab Attestation statement: I reviewed the patient's lab results. 04/08/23 23:15 04/08/23 23:15 Labs: Lab Results 04/08/23 04/09/23 04/09/23 Range/Units 23:15 02:42 02:46 WBC 12.1 H (4.8-10.8) X10*3/uL RBC 4.62 (4.60-5.80) X10*6/uL Hgb 14.3 (14.0-18.0) g/dl Hct 43.3 (42.0-52.0) % MCV 93.7 (80.0-98.0) fL MCH 31.0 (27.0-33.0) pg MCHC 33.0 (31.0-36.0) g/dl RDW 15.7 (11.0-16.0) % Plt Count 284 (160-400) X10*3/uL MPV 9.7 (9.4-12.4) fL Immature Gran % (Auto) 0.7 H (0.0-0.4) % Neut % (Auto) 65.2 (45-73) % Lymph % (Auto) 27.0 (20-40) % [place] % (Auto) 6.4 (2-11) % Eos % (Auto) 0.4 (0-4) % Baso % (Auto) 0.3 (0-2) % Lymph # (Auto) 3.3 (1.2-4.9) X10*3/uL [place] # (Auto) 0.8 (0.1-1.2) X10*3/uL Eos # (Auto) 0.1 (0.0-0.4) X10*3/uL Baso # (Auto) 0.0 (0.0-0.2) X10*3/uL Abs Immat Gran (auto) 0.09 H (0.00-0.03) X10*3/uL Absolute Neuts (auto) 7.9 (2.0-8.3) x10*3/uL Absolute Nucleated RBC 0.000 (0.0-0.012) X10*3/uL Nucleated RBC % (auto) 0.0 (0.0-0.2) /100WBC VBG pH 7.38 (7.32-7.43) VBG pCO2 51 mmHg VBG pO2 78 mmHg VBG HCO3 30 H (22-26) mmol/L VBG O2 Saturation 95.0 % VBG Base Excess 4.0 mmol/L Sodium 139 (135-145) mmol/L Potassium 4.0 (3.3-5.1) mmol/L Chloride 104 (96-108) mmol/L Carbon Dioxide 31 H (22-29) mmol/L Anion Gap 8 L (12-20) BUN 17 H (9-16) mg/dL Creatinine 0.95 (0.5-1.4) mg/dL Estim Creat Clear Calc TNP Estimated GFR > 60 Random Glucose 117 H (60-115) mg/dL Calcium 9.5 (8.4-10.2) mg/dL Troponin I High Sens < 2.7 (<3.5-35.0) ng/L B-Natriuretic Peptide < 10 (<100) pg/mL COVID-19 ([facility]) Negative (Negative) COVID-19 Clin Com See Note Discharge Plan Discharge Clinical Impression: Chronic lung disease, Sleep apnea syndrome, Pickwickian syndrome Patient Disposition: Home, Self-Care Instructions: Sleep Apnea (DC), COPD (Chronic Obstructive Pulmonary Disease) (ED) Additional Instructions: Stop smoking decreased weight Use albuterol inhaler 2 puffs every 4-6 hours as needed Prednisone as prescribed 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 for sleep studies and management Prescriptions: New prednisone 20 mg tablet 40 mg PO DAILY Qty: 10 0RF albuterol sulfate [ProAir HFA] 90 mcg/actuation HFA aerosol inhaler 2 puff inhalation Q4-6H PRN (Reason: bronchospasm) Qty: 8.5 0RF No Action albuterol sulfate 90 mcg/actuation aerosol powdr breath activated 2 inh inhalation Q4-6H PRN (Reason: shortness of breath or wheezing) Qty: 1 0RF metoprolol succinate 50 mg tablet extended release 24 hr 1 tab PO DAILY hydrochlorothiazide 25 mg tablet 25 mg PO DAILY Qty: 30 0RF albuterol sulfate 90 mcg/actuation HFA aerosol inhaler 1 inh inhalation QID PRN (Reason: shortness of breath or wheezing) Qty: 8.5 0RF prednisone 50 mg tablet 50 mg PO DAILY Qty: 4 0RF omeprazole 20 mg capsule,delayed release(DR/EC) 20 mg PO DAILY Qty: 30 5RF docusate sodium [Colace] 100 mg capsule 200 mg PO BEDTIME Qty: 60 5RF Interventions: ED Discharge Assessment Last Done: 04/09/23 04:25
[2023-04-09 02:08] VITALS: BP 137/78; PULSE 83; RESP 20; TEMP 36.7; O2SAT 94
[2023-04-09] MEDS: Albuterol Sulfate 5 MG, Albuterol Sulfate (0.083%) 2.5 MG 7.5 MG INHALE (02:47)
[2023-04-09 02:48] VITALS: PULSE 72; RESP 28; O2SAT 91
[2023-04-09 02:49] LABS: Venous Blood Gas Refer to POC result
[2023-04-09 02:52] LABS: VBG HCO3 30 mmol/L (22-26); VBG pCO2 51 mmHg; VBG pH 7.38 (7.32-7.43); VBG pO2 78 mmHg
[2023-04-09 02:52] LABS: B Type Natriuretic Peptide < 10 pg/mL (<100)
[2023-04-09 02:59] LABS: COVID-19 Test Negative (Negative); IDNOW Serial# 6674DD1D
[2023-04-09] MEDS: methylPREDNISolone Sod Succ 125 MG/2 ML VIAL IVPUSH (03:52)
== END 2023-04-09 04:34 | disposition home or self-care (01) ==
PROVIDERS: Emergency Medicine Emergency Medical Services; Emergency Provider Internal Medicine; PCP Internal Medicine Medical Oncology
DX: J44.9 Chronic obstructive pulmonary disease, unspecified (principal); G47.33 Obstructive sleep apnea (adult) (pediatric); I10 Essential (primary) hypertension; R06.02 Shortness of breath; Z20.822 Contact with and (suspected) exposure to COVID-19; E66.2 Morbid (severe) obesity with alveolar hypoventilation; Z68.41 Body mass index [BMI] 40.0-44.9, adult; F17.210 Nicotine dependence, cigarettes, uncomplicated; Z71.6 Tobacco abuse counseling; Z71.3 Dietary counseling and surveillance; Z79.899 Other long term (current) drug therapy
CPT/HCPCS: 36415; 80048; 82803; 83880; 84484; 85025; 87635; 93005; 94640; 96374; 99284; 99285; J2930

== ENCOUNTER 2023-04-19 12:52 | Outpatient (AMB) | payer OTHER, SELFPAY ==
--- NOTE | 2023-04-19 13:00 | A.OFFVIS_ITS ---
Intake Vital Signs 04/19/23 13:01 Height 5 ft 11 in Weight 277 lb 12.519 oz BMI 38.7 BP 140/82 H Blood Pressure Location Rt brachial Position Sitting Pulse 85 Pulse Source Doppler Pulse Oximetry (%) 95 Oxygen Delivery Method Room Air Intake Visit Reasons: Abnormal PFT Allergies No Known Allergies Allergy (Unknown, Verified 04/19/23 13:04) HPI Abnormal PFT HPI Details 57-year-old gentleman active 30+ pack-ye ar smoker with underlying pulmonary emphysema and likely obstructive sleep apnea referred for pulmonary evaluation. Patient states that he has been using albuterol MDI and prednisone with suboptimal control of his dyspnea on exertion symptoms. He also complains of significant daytime sleepiness, unrestful sleep, and snoring. He denies family history of lung disease. He denies exposure to industrial dusts. [facility] Medical History Smoker COPD (chronic obstructive pulmonary disease) HTN (hypertension) Acid reflux Diverticulitis Surgical History Hx of colonoscopy History of colostomy reversal H/O colostomy Family History Mother Diabetes Arthritis Sleep apnea COPD (chronic obstructive pulmonary disease) Father Stomach cancer Diabetes Arthritis Sister Arthritis Social History (Updated 04/19/23 @ 13:06 by SOILA Hayes) Household Members: Spouse Alcohol intake: current Alcohol intake frequency: holidays/special occasions only Alcohol type: beer and hard liquor Patient Tobacco Use Status: Current everyday Tobacco user Cigarette Packs Per Day: 0.5 Current occupational status: employed Current occupation: [employer] Review of Systems Const Reports daytime sleepiness, Denies excessive sweating, Reports fatigue, Denies fever(s), Reports lethargy, Denies malaise, Denies night sweats, Reports snoring and Denies weight loss Eyes Denies blurry vision and Denies itchy eyes ENT Denies nasal congestion, Denies post nasal drip, Denies sinus pain, Denies sinus pressure and Denies other ( Thrush) Card Denies chest pain, Denies pedal edema, Denies dyspnea, Reports dyspnea on exertion, Denies orthopnea and Denies paroxysmal nocturnal dyspnea Resp Denies cough, Denies hemoptysis, Denies excessive phlegm production, Denies dyspnea, Reports dyspnea on exertion, Reports snoring and Denies wheezing GI Denies abdominal pain and Denies heartburn Musc Denies myalgias, Denies arthralgias and Denies joint swelling Skin/Breast Denies rash Neuro Denies memory loss and Denies seizure-like activity Psych Denies abnormal sleep pattern, Denies anxiety and Denies memory loss Endo Denies excessive sweating, Reports fatigue and Denies heat intolerance Liam/Lymph Denies easy bruising Aller/Immun Denies itchy eyes, Denies seasonal rhinorrhea and Denies wheezing Physical Exam Vital Signs: Last Vital Signs Pulse 85 04/19/23 13:01 BP 140/82 H 04/19/23 13:01 Pulse Ox 95 04/19/23 13:01 Oxygen Delivery Method Room Air 04/19/23 13:01 BMI result Body Mass Index 38.7 Const General: no acute distress and alert Nutritional Appearance: obese Orientation/consciousness: Other orientation findings ( oriented) HEENT Head: Yes atraumatic Eyes General: appearance normal, both eyes and all related structures Sclerae: sclerae normal EOM: EOMs intact bilaterally Neck Neck: Yes supple Lymphatic: no lymphadenopathy noted Resp Effort & Inspection: normal respiratory effort and no use of accessory muscles Auscultation: clear to auscultation bilaterally Cardio Rate: regular rate Rhythm: regular rhythm Heart sounds: no gallops, no murmurs and no rubs Skin General skin exam: other ( warm) Extrem General: No clubbing, No cyanosis and No edema Assessment & Plan Assessment & Plan (1) Pulmonary emphysema: Code(s): J43.9 - Emphysema, unspecified Plan: Results of pulmonary function test reviewed - significant pulmonary emphysema without fixed obstruction. Suboptimally controlled on albuterol MDI and prednisone will add Anoro and duo nebs. Results of CT chest from 2020 reviewed, possible underlying fibrosis. Will obtain repeat CT chest for further evaluation. (2) KIRILL (obstructive sleep apnea): Code(s): G47.33 - Obstructive sleep apnea (adult) (pediatric) Plan: Unrestful sleep, snoring, daytime sleepiness. [place] Sleepiness Scale score of 16. Will obtain home sleep study. Orders: Orders RT home sleep study Today G47.33 - Obstructive sleep apnea (adult) (pediatric) CT chest wo IV con Today J84.10 - Pulmonary fibrosis, unspecified Medications: New umeclidinium-vilanterol 62.5-25 mcg/actuation (Anoro Ellipta) 1 inh inhalation DAILY 30 days 1 ea 6RF ipratropium-albuterol 0.5 mg-3 mg(2.5 mg base)/3 mL 3 mL inhalation Q4-6H 30 days PRN 180 mL 6RF wheezing nicotine (polacrilex) 4 mg buccal Q1H 110 ea 3RF 30 days nicotine (polacrilex) 4 mg buccal Q2-4H PRN 81 ea 6RF nicotine cravings 30 days Coding Level of Care Code New Pt Level 4 (54759) Diagnoses Pulmonary emphysema J43.9 KIRILL (obstructive sleep apnea) G47.33
[2023-04-19 13:01] VITALS: BP 140/82; PULSE 85; O2SAT 95; BMI 38.7
== END 2023-04-19 13:22 | disposition home or self-care (01) ==
PROVIDERS: PCP Internal Medicine Medical Oncology; Visit Provider Internal Medicine Pulmonary Disease
DX: J43.9 Emphysema, unspecified (principal); G47.33 Obstructive sleep apnea (adult) (pediatric)
CPT/HCPCS: 99204

== ENCOUNTER → 2023-04-19 12:52 | Outpatient (BNVA) | payer OTHER, SELFPAY | PROVIDERS: PCP Internal Medicine Medical Oncology; Visit Provider Internal Medicine Pulmonary Disease ==

== ENCOUNTER 2023-05-18 11:08 | Outpatient (REF) | payer OTHER, SELFPAY ==
--- NOTE | ~2023-05-18 | CT_ITS ---
EXAMINATION: CT CHEST WITHOUT CONTRAST CLINICAL INFORMATION: Pulmonary fibrosis COMPARISON: None available. TECHNIQUE: Multidetector volumetric CT imaging of the chest was done. Axial MIP volume rendering provided. Sagittal and coronal reformatted images were obtained. This CT examination was performed using dose optimization techniques as appropriate, variously including the following: *Automated exposure control *Adjustment of mA and/or kV according to patient size (this includes techniques or standardized protocols for targeted exams where dose is matched to indication/reason for exam; i.e. extremities or head) *Use of iterative reconstruction technique DLP: 560 mGy-cm FINDINGS: MEMS PROCESS ENGINEER: Study limited by body habitus. LUNGS: Trachea and bronchi are patent. Mild emphysematous changes again noted. Unchanged mild mosaic attenuation, most prominent right upper lobe. Increasing right middle lobe atelectasis. Other regions of scattered atelectasis also noted. No change 2 mm right middle lobe lung nodule, 10:164 and right lower lobe, 10:157. No suspicious lung nodules. No further follow-up recommended. MEDIASTINUM: Unremarkable thyroid. Nonspecific mediastinal lymph nodes, largest in the pretracheal region is unchanged measuring 8 mm in short axis. No pathologic lymphadenopathy. Nonenlarged heart. No pericardial effusion. Nonaneurysmal aorta with mild atherosclerotic calcifications. Nonenlarged pulmonary arteries. CORONARY ARTERY CALCIFICATION: Mild PLEURA: There is no pleural effusion. No pleural mass or thickening. AXILLA:. Nonspecific axillary lymph nodes are unchanged. UPPER ABDOMEN: Unremarkable. OSSEOUS STRUCTURES: No suspicious osseous lesions. CT/CT chest wo IV con IMPRESSION: Increasing right middle lobe atelectasis. Stable emphysematous changes and mosaic attenuation suggestive of small airway disease. No change 2 mm lung nodules since 03/24/2021.
== END 2023-05-18 11:09 | disposition home or self-care (01) ==
LOC: HO.CT 11:08
PROVIDERS: PCP Internal Medicine Medical Oncology; Visit Provider Internal Medicine Pulmonary Disease
DX: J84.10 Pulmonary fibrosis, unspecified (principal)
CPT/HCPCS: 71250

== ENCOUNTER → 2023-05-31 10:50 | Outpatient (REF) | payer OTHER, SELFPAY | LOC: HO.SL 10:50 | PROVIDERS: PCP Internal Medicine Medical Oncology; Visit Provider Internal Medicine Pulmonary Disease | DX: Z13.89 Encounter for screening for other disorder (principal) ==

== ENCOUNTER 2023-06-21 13:35 | Outpatient (AMB) | payer OTHER, SELFPAY ==
[2023-06-21 13:37] VITALS: BP 132/80; PULSE 102; O2SAT 94; BMI 40.0
--- NOTE | 2023-06-21 13:37 | A.OFFVIS_ITS ---
Intake Vital Signs 06/21/23 13:37 Height 5 ft 11 in Weight 286 lb 9.615 oz BMI 40.0 BP 132/80 Blood Pressure Location Lt brachial Position Sitting Pulse 102 H Pulse Source Doppler Pulse Oximetry (%) 94 Oxygen Delivery Method Room Air Intake Visit Reasons: Abnormal PFT Allergies No Known Allergies Allergy (Unknown, Verified 06/21/23 13:44) HPI Abnormal PFT HPI Details 57-year-old gentleman recent 30+ pack-ye ar smoker, quit 04/2023 with underlying pulmonary emphysema and likely obstructive sleep apnea referred for pulmonary evaluation. After the last office visit he has been using Anoro, duo nebs, and albuterol MDI with good control of his COPD symptoms. His sleep study only had partial data and a repeat study is pending. His CT chest didn't demonstrate any pulmonary fibrosis. Patient denies any recent exacerbations. [facility] Medical History (Updated 06/21/23 @ 13:54 by Dagoberto Choudhury MD) Smoker COPD (chronic obstructive pulmonary disease) HTN (hypertension) Acid reflux Diverticulitis Surgical History Hx of colonoscopy History of colostomy reversal H/O colostomy Family History Mother Diabetes Arthritis Sleep apnea COPD (chronic obstructive pulmonary disease) Father Stomach cancer Diabetes Arthritis Sister Arthritis Social History (Updated 06/21/23 @ 13:45 by Abbie Melendez [facility]) Household Members: Spouse Alcohol intake: current Alcohol intake frequency: holidays/special occasions only Alcohol type: beer and hard liquor Patient Tobacco Use Status: Former Tobacco user Cigarette Packs Per Day: 1.5 Years Smoked: 35 Current occupational status: employed Current occupation: [employer] Review of Systems Const Denies daytime sleepiness, Denies excessive sweating, Denies fatigue, Denies fever(s), Denies lethargy, Denies malaise, Denies night sweats, Denies snoring and Denies weight loss Eyes Denies blurry vision and Denies itchy eyes ENT Denies nasal congestion, Denies post nasal drip, Denies sinus pain, Denies sinus pressure and Denies other ( Thrush) Card Denies chest pain, Denies pedal edema, Denies dyspnea, Denies orthopnea and Denies paroxysmal nocturnal dyspnea Resp Denies cough, Denies hemoptysis, Denies excessive phlegm production, Denies dyspnea, Denies snoring and Denies wheezing GI Denies abdominal pain and Denies heartburn Musc Denies myalgias, Denies arthralgias and Denies joint swelling Skin/Breast Denies rash Neuro Denies memory loss and Denies seizure-like activity Psych Denies abnormal sleep pattern, Denies anxiety and Denies memory loss Endo Denies excessive sweating, Denies fatigue and Denies heat intolerance Liam/Lymph Denies easy bruising Aller/Immun Denies itchy eyes, Denies seasonal rhinorrhea and Denies wheezing Physical Exam Vital Signs: Last Vital Signs Pulse 102 H 06/21/23 13:37 BP 132/80 06/21/23 13:37 Pulse Ox 94 06/21/23 13:37 Oxygen Delivery Method Room Air 06/21/23 13:37 BMI result Body Mass Index 40.0 Const General: no acute distress and alert Nutritional Appearance: obese Orientation/consciousness: Other orientation findings ( oriented) HEENT Head: Yes atraumatic Eyes General: appearance normal, both eyes and all related structures Sclerae: sclerae normal EOM: EOMs intact bilaterally Neck Neck: Yes supple Lymphatic: no lymphadenopathy noted Resp Effort & Inspection: normal respiratory effort and no use of accessory muscles Auscultation: clear to auscultation bilaterally Cardio Rate: regular rate Rhythm: regular rhythm Heart sounds: no gallops, no murmurs and no rubs Skin General skin exam: other ( warm) Extrem General: No clubbing, No cyanosis and No edema Assessment & Plan Assessment & Plan (1) Pulmonary emphysema: Code(s): J43.9 - Emphysema, unspecified Plan: Well controlled on Anoro, duo nebs, and albuterol MDI. Continue current regimen. (2) KIRILL (obstructive sleep apnea): Code(s): G47.33 - Obstructive sleep apnea (adult) (pediatric) Plan: Initial study with only partial date, follow-up study is pending. Coding Level of Care Code Est Pt Level 4 (32002) Diagnoses Pulmonary emphysema J43.9 KIRILL (obstructive sleep apnea) G47.33
== END 2023-06-21 13:55 | disposition home or self-care (01) ==
PROVIDERS: PCP Internal Medicine Medical Oncology; Visit Provider Internal Medicine Pulmonary Disease
DX: J43.9 Emphysema, unspecified (principal); G47.33 Obstructive sleep apnea (adult) (pediatric)
CPT/HCPCS: 99214

== ENCOUNTER → 2023-06-21 13:35 | Outpatient (BNVA) | payer OTHER, SELFPAY | PROVIDERS: PCP Internal Medicine Medical Oncology; Visit Provider Internal Medicine Pulmonary Disease ==

== ENCOUNTER 2023-10-04 07:58 | Emergency (ER) | payer OTHER, SELFPAY ==
--- NOTE | ~2023-10-04 | XR_ITS ---
EXAMINATION: XR RIBS, LEFT CLINICAL INFORMATION: Pain COMPARISON: CXR from 02/17/[address] from 05/18/2023. TECHNIQUE: 3 views of the left ribs, as well as PA view of chest. FINDINGS: Lungs are similar in appearance compared to 05/18/2023. The hazy opacities along cardiac borders correspond to atelectasis along the prominent paracardiac fat pads, as seen on 05/18/2023. No evidence of interstitial lung disease. No pleural effusion or pneumothorax. Pulmonary vascular pattern is normal. Old healed fracture of left lateral ninth rib. No evidence of acute rib fracture. No suspicious osseous lesion. XR/XR ribs LT min 3V w CXR1V IMPRESSION: * No acute pulmonary disease compared to 05/18/2023. * There is atelectasis of the lingula and right middle lobe adjacent to the prominent paracardiac fat pads. * Old healed fracture of left lateral ninth rib.
[2023-10-04 08:04] VITALS: BP 140/81; PULSE 82; RESP 16; TEMP 37.1; O2SAT 94; BMI 42.7
--- NOTE | 2023-10-04 08:20 | ED.GENADULT ---
HPI - General Adult General Chief complaint: General Medical Stated complaint: Back pain Time Seen by Provider: 10/04/23 08:20 Source: patient Mode of arrival: ambulatory Limitations: no limitations History of Present Illness HPI narrative: Patient is a 58 year old assigned male at with a history of emphysema presenting to the emergency department today with left sided flank pain. 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 Patient states that the pain is mostly in his left ribs and worse with deep breathing. Patient denies any dizziness, lightheadedness, abdominal pain, nausea, vomiting, fever, chills, blurry vision, double vision, loss of vision, chest pain, difficulty breathing, shortness of breath, back pain, night sweats, pain with urination, increased urinary frequency, increased urinary urgency, blood in his urine or stool, syncope or a near syncopal episode, recent trauma or falls, bowel incontinence, bladder incontinence, bowel retention, bladder retention, or any other complaints at this time. Onset (ago): day(s) (2) Location: left (ribs) Radiation: non-radiation Severity: mild Severity scale (1-10): 3 Quality: aching and dull Pain Consistency: constant Relieving factors: none Exacerbating factors: none Associated symptoms: denies other symptoms Treatments prior to arrival: none Related Data Home Medications Medication Instructions Recorded Confirmed metoprolol succinate 50 mg 1 tab PO DAILY 02/03/22 03/01/22 tablet,extended release 24 hr Previous Rx's Medication Instructions Recorded albuterol sulfate 90 mcg/actuation 2 inh inhalation Q4-6H PRN 04/29/20 breath activated powder inhaler shortness of breath or wheezing #1 ea hydrochlorothiazide 25 mg tablet 25 mg PO DAILY #30 tabs 12/18/21 docusate sodium 100 mg capsule 200 mg (2 x 100 mg) PO BEDTIME #60 03/01/22 (Colace) caps omeprazole 20 mg capsule,delayed 20 mg PO DAILY #30 caps 03/01/22 release albuterol sulfate 90 mcg/actuation 1 inh inhalation QID PRN shortness 02/17/23 aerosol inhaler of breath or wheezing #8.5 grams prednisone 50 mg tablet 50 mg PO DAILY #4 tabs 02/17/23 albuterol sulfate 90 mcg/actuation 2 puff inhalation Q4-6H PRN 04/09/23 aerosol inhaler (ProAir HFA) bronchospasm #8.5 grams prednisone 20 mg tablet 40 mg (2 x 20 mg) PO DAILY #10 tabs 04/09/23 ipratropium 0.5 mg-albuterol 3 mg 3 ml inhalation Q4-6H PRN wheezing 04/19/23 (2.5 mg base)/3 mL nebulization 30 days #180 mL soln nicotine (polacrilex) 4 mg buccal 4 mg buccal Q2-4H PRN nicotine 04/19/23 mini lozenge cravings 30 days #81 ea nicotine (polacrilex) 4 mg gum 4 mg buccal Q1H 30 days #110 ea 04/19/23 umeclidinium 62.5 mcg-vilanterol 1 inh inhalation DAILY 30 days #1 04/19/23 25 mcg/actuation powdr for ea inhalation (Anoro Ellipta) Allergies Allergy/AdvReac Type Severity Reaction Status Date / Time No Known Allergies Allergy Unknown Verified 10/04/23 08:04 Review of Systems Constitutional: Constitutional: Reports no additional constitutional complaints, Denies chills, Denies fever(s) and Denies night sweats Eyes: Eyes: Reports no additional eye complaints, Denies blurry vision, Denies change in vision, Denies diplopia, Denies eye discharge, Denies loss of vision and Denies eye pain ENT: Denies dizziness Cardiovascular: Cardiovascular: Reports no additional cardiovascular complaints, Denies chest pain, Denies lightheadedness, Denies Loss of Consciousness and Denies dyspnea Respiratory: Respiratory: Reports no additional respiratory complaints and Denies dyspnea Gastrointestinal: Gastrointestinal: Reports no additional gastrointestinal complaints, Denies abdominal pain, Denies melena, Denies hematochezia, Denies change in bowel habits and Denies change in stool character Genitourinary: Genitourinary: Reports no additional male genitourinary complaints, Denies hematuria, Denies oliguria, Denies difficulty urinating, Denies dysuria, Denies urinary frequency, Denies urinary hesitancy, Denies urinary incontinence and Denies urinary urgency Musculoskeletal: Musculoskeletal: Reports no additional musculoskeletal complaints, Denies numbness and Denies tingling Comments: left rib pain Neurologic: Denies dizziness, Denies loss of vision, Denies numbness and Denies tingling Psychiatric: Psychiatric: Reports no additional psychiatric complaints Endocrine: Endocrine: Reports no additional endocrine complaints Hematologic/Lymphatic: Hematologic/Lymphatic: Reports no additional hematologic/lymphatic complaints Allergic/Immunologic: Allergic/Immunologic: Reports no additional allergic/immunologic complaints [facility] Past Medical History Attestation statement: The following information was validated with the patient. Source: old records reviewed and nursing notes reviewed Medical History Smoker COPD (chronic obstructive pulmonary disease) HTN (hypertension) Acid reflux Diverticulitis Surgical History Hx of colonoscopy History of colostomy reversal H/O colostomy Family History Family History Mother Diabetes Arthritis Sleep apnea COPD (chronic obstructive pulmonary disease) Father Stomach cancer Diabetes Arthritis Sister Arthritis Social History Social History Household Members: Spouse Alcohol intake: current Alcohol intake frequency: holidays/special occasions only Alcohol type: beer and hard liquor Patient Tobacco Use Status: Former Tobacco user Cigarette Packs Per Day: 1.5 Years Smoked: 35 Advance Directives: No Advance Directives Information Provided: Yes Current occupational status: employed Current occupation: [employer] Physical Exam ED Vital Signs: Vital Signs - 24 hr 10/04/23 08:04 10/04/23 10:47 Temperature 98.7 F 98.0 F Pulse Rate 82 82 Respiratory Rate 16 12 Blood Pressure 140/81 H 119/86 Pulse Oximetry 94 93 Oxygen Delivery Method Room Air Room Air BMI result Body Mass Index 42.7 Const General: cooperative, no acute distress, alert and awake Nutritional Appearance: well nourished Orientation/consciousness: patient oriented x3 Limitations: no limitations HENMT Head: Yes normal to inspection and Yes atraumatic Ears: hearing grossly normal bilaterally and external ears normal General nose exam: Normal external nose present, no nasal discharge noted and no epistaxis Face and sinus: Yes normal facial exam, No abrasion and No laceration Mouth: Normal oral and palatal mucosa present, no drooling and no muffled voice Eyes General: appearance normal, both eyes and all related structures Periorbital: periorbital findings normal Eyelids: Yes eyelids normal Conjunctivae: conjunctivae normal Pupils: Equal, round and reactive pupils present EOM: EOMs intact bilaterally Neck Neck: Yes normal visual inspection, Yes full ROM and Yes no lymphadenopathy Chest Chest palpation & inspection: normal inspection of the chest Resp Effort & Inspection: normal respiratory effort and able to speak in complete sentences Auscultation: clear to auscultation bilaterally GI Inspection: Yes normal to inspection Neuro General: patient oriented x3 and moves all extremities Cranial nerves: Yes Equal, round and reactive pupils present Cognition (Neuro): normal cognition Motor exam (neuro): 5/5 motor strength present throughout Sensory Exam: Normal double simultaneous stimulation for sensation Coordination: [id number] test normal Extrem General: Yes normal to inspection, Yes full ROM and Yes capillary refill normal Psych Appearance: grossly normal Mental Status: mental status grossly normal Affect: normal affect Attitude: cooperative Thought process: Normal thought process present Thought content: Normal thought content present Insight: Good insight present (Psych) Medical Decision Making Medical Decision Making MDM Narrative: Patient is a 58 year old assigned male at with a history of emphysema presenting to the emergency department today with left rib pain. Patient's physical exam was as noted in the physical exam portion of this note. Patient's blood work was unremarkable. Patient's urine showed no acute process. Patient's left ribs x-ray showed an old fracture of the left 9th rib. However, this is where the patient is experiencing pain and I believe it to be an acute fracture. I explained my physical exam findings as well as all test results to the patient. I answered all questions asked by the patient. I stressed the importance of the patient taking his medication as prescribed. I stressed the importance of the patient following up with his primary care provider. I stressed the importance of the patient returning to the emergency department immediately if his symptoms were to worsen or if he were to develop any dizziness, shortness of breath, difficulty breathing, chest pain, blurry vision, loss of vision, nausea, vomiting, abdominal pain, fever, chills, back pain, or any other complaints. Patient verbalized agreement and understanding with this treatment plan and discharge. Differential Diagnosis Differential Diagnoses: The differential diagnosis associated with the presentation includes Left rib pain Rib fracture Contusion Admission/Observation Consideration of admission/observation: Escalation of care including admission/observation considered Patient would have been admitted to the hospital had his work up had any findings where hospital admission was appropriate and his clinical presentation warranted hospital admission. Lab Data [facility] Lab Attestation statement: I reviewed the patient's lab results. My interpretation of these results are in the [facility] Rationale portion of this note. 10/04/23 09:19 10/04/23 09:19 Labs: Lab Results 10/04/23 10/04/23 Range/Units 09:14 09:19 WBC 12.4 H (4.8-10.8) X10*3/uL RBC 4.80 (4.60-5.80) X10*6/uL Hgb 14.5 (14.0-18.0) g/dl Hct 45.1 (42.0-52.0) % MCV 94.0 (80.0-98.0) fL MCH 30.2 (27.0-33.0) pg MCHC 32.2 (31.0-36.0) g/dl RDW 16.3 H (11.0-16.0) % Plt Count 315 (160-400) X10*3/uL MPV 9.5 (9.4-12.4) fL Immature Gran % (Auto) 0.5 H (0.0-0.4) % Neut % (Auto) 66.7 (45-73) % Lymph % (Auto) 25.1 (20-40) % Russell % (Auto) 6.3 (2-11) % Eos % (Auto) 1.1 (0-4) % Baso % (Auto) 0.3 (0-2) % Lymph # (Auto) 3.1 (1.2-4.9) X10*3/uL Russell # (Auto) 0.8 (0.1-1.2) X10*3/uL Eos # (Auto) 0.1 (0.0-0.4) X10*3/uL Baso # (Auto) 0.0 (0.0-0.2) X10*3/uL Abs Immat Gran (auto) 0.06 H (0.00-0.03) X10*3/uL Absolute Neuts (auto) 8.2 (2.0-8.3) x10*3/uL Absolute Nucleated RBC 0.000 (0.0-0.012) X10*3/uL Nucleated RBC % (auto) 0.0 (0.0-0.2) /100WBC Sodium 141 (135-145) mmol/L Potassium 5.0 (3.3-5.1) mmol/L Chloride 104 (96-108) mmol/L Carbon Dioxide 34 H (22-29) mmol/L Anion Gap 8 L (12-20) BUN 11 (9-16) mg/dL Creatinine 0.88 (0.5-1.4) mg/dL Estim Creat Clear Calc 129.6 Estimated GFR > 60 Random Glucose 87 (60-115) mg/dL Calcium 9.3 (8.4-10.2) mg/dL Total Bilirubin 0.2 (0.0-1.0) mg/dL AST 17 (5-37) U/L ALT 26 (0-40) U/L Alkaline Phosphatase 107 (39-117) U/L Total Protein 8.0 (6.5-8.0) g/dL Albumin 3.3 L (3.5-5.0) g/dL Urine Color Yellow Urine Appearance Clear Urine pH 5.5 (5.0-9.0) Ur Specific Broussard 1.025 (1.005-1.025) Urine Protein Negative (Neg-Trace) mg/dL Urine Glucose (UA) Negative (Negative) mg/dL Urine Ketones Negative (Negative) mg/dL Urine Blood Negative (Negative) Urine Nitrite Negative (Negative) Ur Leukocyte Esterase Negative (Negative) Independent Interpretation I performed an independent interpretation of an: Plain X-Ray Interpretation: My interpretation is in agreement with the radiologist's impression of this imaging study. EXAMINATION: XR RIBS, LEFT CLINICAL INFORMATION: Pain COMPARISON: CXR from 02/17/[address] from 05/18/2023. TECHNIQUE: 3 views of the left ribs, as well as PA view of chest. FINDINGS: Lungs are similar in appearance compared to 05/18/2023. The hazy opacities along cardiac borders correspond to atelectasis along the prominent paracardiac fat pads, as seen on 05/18/2023. No evidence of interstitial lung disease. No pleural effusion or pneumothorax. Pulmonary vascular pattern is normal. Old healed fracture of left lateral ninth rib. No evidence of acute rib fracture. No suspicious osseous lesion. XR/XR ribs LT min 3V w CXR1V IMPRESSION: * No acute pulmonary disease compared to 05/18/2023. * There is atelectasis of the lingula and right middle lobe adjacent to the prominent paracardiac fat pads. * Old healed fracture of left lateral ninth rib. Dictated By: Chadd Brown MD Signed By: Electronically signed by Chadd Brown MD 10/04/23 1006 Radiology Impression Discussion of test interpretation with radiology: I have reviewed the radiologist's reading. Discharge Plan Discharge Clinical Impression: Closed rib fracture Patient Disposition: Home, Self-Care Instructions: Rib Fracture (ED) Additional Instructions: Follow up with your primary care provider. Return to the emergency department immediately if your symptoms worsen or if you develop any dizziness, shortness of breath, difficulty breathing, chest pain, blurry vision, loss of vision, nausea, vomiting, abdominal pain, fever, chills, back pain, or any other complaints. Prescriptions: No Action albuterol sulfate 90 mcg/actuation aerosol powdr breath activated 2 inh inhalation Q4-6H PRN (Reason: shortness of breath or wheezing) Qty: 1 0RF metoprolol succinate 50 mg tablet extended release 24 hr 1 tab PO DAILY hydrochlorothiazide 25 mg tablet 25 mg PO DAILY Qty: 30 0RF albuterol sulfate 90 mcg/actuation HFA aerosol inhaler 1 inh inhalation QID PRN (Reason: shortness of breath or wheezing) Qty: 8.5 0RF prednisone 50 mg tablet 50 mg PO DAILY Qty: 4 0RF prednisone 20 mg tablet 40 mg PO DAILY Qty: 10 0RF albuterol sulfate [ProAir HFA] 90 mcg/actuation HFA aerosol inhaler 2 puff inhalation Q4-6H PRN (Reason: bronchospasm) Qty: 8.5 0RF omeprazole 20 mg capsule,delayed release(DR/EC) 20 mg PO DAILY Qty: 30 5RF docusate sodium [Colace] 100 mg capsule 200 mg PO BEDTIME Qty: 60 5RF Anoro Ellipta 62.5-25 mcg/actuation blister with device 1 inh inhalation DAILY 30 Days Qty: 1 6RF ipratropium-albuterol 0.5 mg-3 mg(2.5 mg base)/3 mL solution for nebulization 3 ml inhalation Q4-6H PRN (Reason: wheezing) 30 Days Qty: 180 6RF nicotine (polacrilex) 4 mg gum 4 mg buccal Q1H 30 Days Qty: 110 3RF nicotine (polacrilex) 4 mg mini lozenge 4 mg buccal Q2-4H PRN (Reason: nicotine cravings) 30 Days Qty: 81 6RF Referrals: Leonard Boston MD [Primary Care Provider] - Stand Alone Forms: Work/School Release Interventions: ED Discharge Assessment Last Done: 10/04/23 10:49 Discharge Date/Time: 10/04/23 10:50 Print Language: Japanese
[2023-10-04 09:22] LABS: MANUAL DIFF FLAG NO
[2023-10-04 09:24] LABS: Basophils Percent Auto 0.3 % (0-2); Eosinophils Absolute Auto 0.1 X10*3/uL (0.0-0.4); Eosinophils Percent Auto 1.1 % (0-4); Hematocrit 45.1 % (42.0-52.0); Hemoglobin 14.5 g/dl (14.0-18.0); Imm Gran Abs Auto 0.06 X10*3/uL (0.00-0.03); Imm Gran Pct Auto 0.5 % (0.0-0.4); Lymphocytes Absolute Auto 3.1 X10*3/uL (1.2-4.9); Lymphocytes Percent Auto 25.1 % (20-40); Mean Corpuscular HGB Conc 32.2 g/dl (31.0-36.0); Mean Corpuscular Hemoglobin 30.2 pg (27.0-33.0); Mean Platelet Volume 9.5 fL (9.4-12.4); Monocytes Absolute Auto 0.8 X10*3/uL (0.1-1.2); Monocytes Percent Auto 6.3 % (2-11); Neutrophils Absolute Auto 8.2 x10*3/uL (2.0-8.3); Neutrophils Percent Auto 66.7 % (45-73); Platelet Count 315 X10*3/uL (160-400); Red Cell Distribution Width 16.3 % (11.0-16.0); White Blood Count 12.4 X10*3/uL (4.8-10.8)
[2023-10-04 09:39] LABS: Appearance Urine Clear; Color Urine Yellow; Glucose Urine UA Negative (Negative); Leukocyte Esterase Urine Negative (Negative); Nitrite Urine Negative (Negative); PH 5.5 (5.0-9.0); Specific Gravity - Urine 1.025 (1.005-1.025); Urine Blood Negative (Negative); Urine Ketones Negative (Negative); Urine Protein Negative (Neg-Trace)
[2023-10-04 09:39] LABS: Alanine Aminotransferase 26 U/L (0-40); Albumin Level 3.3 g/dL (3.5-5.0); Alkaline Phosphatase 107 U/L (39-117); Anion Gap 8 (12-20); Aspartate Amino Transferase 17 U/L (5-37); Bilirubin Total 0.2 mg/dL (0.0-1.0); Blood Urea Nitrogen 11 mg/dL (9-16); Calcium 9.3 mg/dL (8.4-10.2); Carbon Dioxide 34 mmol/L (22-29); Chloride 104 mmol/L (96-108); Creatinine Clr Calc Pharmacy 129.6; Estimated Glomerular Filt Rate > 60; Glucose Random 87 mg/dL (60-115); Sodium 141 mmol/L (135-145)
[2023-10-04 10:47] VITALS: BP 119/86; PULSE 82; RESP 12; TEMP 36.7; O2SAT 93
== END 2023-10-04 10:50 | disposition home or self-care (01) ==
PROVIDERS: Emergency Provider Emergency Medicine Emergency Medical Services; PCP Internal Medicine Medical Oncology
DX: S22.32XA Fracture of one rib, left side, initial encounter for closed fracture (principal); M54.50 Low back pain, unspecified; R07.81 Pleurodynia; X50.9XXA Other and unspecified overexertion or strenuous movements or postures, initial encounter; Y93.9 Activity, unspecified; Y92.9 Unspecified place or not applicable; Y99.8 Other external cause status; Z79.899 Other long term (current) drug therapy; Z87.891 Personal history of nicotine dependence
CPT/HCPCS: 36415; 71101; 80053; 81003; 85025; 99283; 99284

== ENCOUNTER → 2023-10-24 09:48 | Outpatient (REF) | payer OTHER, SELFPAY | LOC: HO.SL 09:48 | PROVIDERS: PCP Internal Medicine Medical Oncology; Visit Provider Internal Medicine Pulmonary Disease | DX: G47.33 Obstructive sleep apnea (adult) (pediatric) (principal) | CPT/HCPCS: 95806 ==

== ENCOUNTER → 2023-10-24 09:59 | Outpatient (BNV) | payer OTHER, SELFPAY | PROVIDERS: PCP Internal Medicine Medical Oncology; Visit Provider Internal Medicine | DX: G47.33 Obstructive sleep apnea (adult) (pediatric) (principal) | CPT/HCPCS: 95806 ==

== ENCOUNTER 2023-11-01 12:57 | Outpatient (AMB) | payer OTHER, SELFPAY ==
--- NOTE | 2023-11-01 13:14 | MHC.OFFVIS ---
Intake Vital Signs 11/01/23 13:15 Height 5 ft 10 in Weight 298 lb 11.622 oz BMI 42.9 BP 122/64 Blood Pressure Location Rt brachial Position Sitting Pulse 88 Pulse Source Doppler Pulse Oximetry (%) 93 Oxygen Delivery Method Room Air Intake Visit Reasons: Abnormal PFT Allergies No Known Allergies Allergy (Unknown, Verified 10/04/23 08:04) HPI Abnormal PFT HPI Details 58-year-old gentleman recent 30+ pack-year smoker, quit 04/2023 with underlying pulmonary emphysema and likely obstructive sleep apnea referred for pulmonary evaluation. He has been using Anoro, duo nebs, and albuterol MDI, with somewhat suboptimal control of his symptoms. Also complain of worsening lower extremity edema. [facility] Medical History Smoker COPD (chronic obstructive pulmonary disease) HTN (hypertension) Acid reflux Diverticulitis Surgical History Hx of colonoscopy History of colostomy reversal H/O colostomy Family History Mother Diabetes Arthritis Sleep apnea COPD (chronic obstructive pulmonary disease) Father Stomach cancer Diabetes Arthritis Sister Arthritis Social History Household Members: Spouse Alcohol intake: current Alcohol intake frequency: holidays/special occasions only Alcohol type: beer and hard liquor Patient Tobacco Use Status: Former Tobacco user Cigarette Packs Per Day: 1.5 Years Smoked: 35 Current occupational status: employed Current occupation: [employer] Review of Systems Const Denies daytime sleepiness, Denies excessive sweating, Denies fatigue, Denies fever(s), Denies lethargy, Denies malaise, Denies night sweats, Denies snoring and Denies weight loss Eyes Denies blurry vision and Denies itchy eyes ENT Denies nasal congestion, Denies post nasal drip, Denies sinus pain, Denies sinus pressure and Denies other ( Thrush) Card Denies chest pain, Reports pedal edema, Denies dyspnea, Reports dyspnea on exertion, Denies orthopnea and Denies paroxysmal nocturnal dyspnea Resp Denies cough, Denies hemoptysis, Denies excessive phlegm production, Denies dyspnea, Reports dyspnea on exertion, Denies snoring and Denies wheezing GI Denies abdominal pain and Denies heartburn Musc Denies myalgias, Denies arthralgias and Denies joint swelling Skin/Breast Denies rash Neuro Denies memory loss and Denies seizure-like activity Psych Denies abnormal sleep pattern, Denies anxiety and Denies memory loss Endo Denies excessive sweating, Denies fatigue and Denies heat intolerance Liam/Lymph Denies easy bruising Aller/Immun Denies itchy eyes, Denies seasonal rhinorrhea and Denies wheezing Physical Exam Vital Signs: Last Vital Signs Pulse 88 11/01/23 13:15 BP 122/64 11/01/23 13:15 Pulse Ox 93 11/01/23 13:15 Oxygen Delivery Method Room Air 11/01/23 13:15 BMI result Body Mass Index 42.9 Const General: no acute distress and alert Nutritional Appearance: obese Orientation/consciousness: Other orientation findings ( oriented) HEENT Head: Yes atraumatic Eyes General: appearance normal, both eyes and all related structures Sclerae: sclerae normal EOM: EOMs intact bilaterally Neck Neck: Yes supple Lymphatic: no lymphadenopathy noted Resp Effort & Inspection: normal respiratory effort and no use of accessory muscles Auscultation: clear to auscultation bilaterally Cardio Rate: regular rate Rhythm: regular rhythm Heart sounds: no gallops, no murmurs and no rubs Skin General skin exam: other ( warm) Extrem General: No clubbing, No cyanosis and Yes edema (2+ bilateral) Assessment & Plan Assessment & Plan (1) Pulmonary emphysema: Code(s): J43.9 - Emphysema, unspecified Plan: Suboptimally controlled on Anoro, duo nebs, and albuterol MDI. Will add Combivent. (2) KIRILL (obstructive sleep apnea): Code(s): G47.33 - Obstructive sleep apnea (adult) (pediatric) Plan: Sleep study is still pending. (3) Dyspnea on exertion: Code(s): R06.09 - Other forms of dyspnea Plan: Now worsening lower extremity edema and dyspnea on exertion. Will switch hydrochlorothiazide to furosemide 40 mg daily. Orders: Orders CA echo transthorac w con Today R06.09 - Other forms of dyspnea Medications: New ipratropium-albuterol 20-100 mcg/actuation (Combivent Respimat) 1 puff inhalation Q6H 4 grams 6RF 30 days furosemide 40 mg PO DAILY 30 tabs 6RF 30 days Discontinued hydrochlorothiazide Discontinued Reason: Doctor's Order 25 mg PO DAILY 30 tabs 0RF Coding Level of Care Code Est Pt Level 4 (91289) Diagnoses Pulmonary emphysema J43.9 KIRILL (obstructive sleep apnea) G47.33 Dyspnea on exertion R06.09
[2023-11-01 13:15] VITALS: BP 122/64; PULSE 88; O2SAT 93; BMI 42.9
== END 2023-11-01 13:38 | disposition home or self-care (01) ==
PROVIDERS: PCP Internal Medicine Medical Oncology; Visit Provider Internal Medicine Pulmonary Disease
DX: J43.9 Emphysema, unspecified (principal); G47.33 Obstructive sleep apnea (adult) (pediatric); R06.09 Other forms of dyspnea
CPT/HCPCS: 99214

== ENCOUNTER → 2023-11-01 12:57 | Outpatient (BNVA) | payer OTHER, SELFPAY | PROVIDERS: PCP Internal Medicine Medical Oncology; Visit Provider Internal Medicine Pulmonary Disease ==

== ENCOUNTER 2023-11-10 12:57 | Emergency (ER) | payer OTHER, SELFPAY ==
--- NOTE | 2023-11-10 13:59 | ED_ITS ---
HPI - General Adult General Chief complaint: General Medical Stated complaint: swollen throat diff breathing Time Seen by Provider: 11/10/23 20:22 Source: patient Mode of arrival: ambulatory Limitations: no limitations History of Present Illness HPI narrative: Patient comes to the emergency room complaining that his neck looks big. Patient states that for many years, patient has had a long chang. Today, casie romero went to the [employer] and guarded shaved. Today is the 1st time in years that he sees his neck. Patient thought his neck looks very big and decided to come to the emergency room. Patient denies any trouble swallowing, no breathing difficulty, no sore throat. Related Data Home Medications ?Medication ?Instructions ?Recorded ?Confirmed metoprolol succinate 50 mg 1 tab PO DAILY 02/03/22 03/01/22 tablet,extended release 24 hr Previous Rx's ?Medication ?Instructions ?Recorded albuterol sulfate 90 mcg/actuation 2 inh inhalation Q4-6H PRN 04/29/20 breath activated powder inhaler shortness of breath or wheezing #1 ea docusate sodium 100 mg capsule 200 mg (2 x 100 mg) PO BEDTIME #60 03/01/22 (Colace) caps omeprazole 20 mg capsule,delayed 20 mg PO DAILY #30 caps 03/01/22 release albuterol sulfate 90 mcg/actuation 1 inh inhalation QID PRN shortness 02/17/23 aerosol inhaler of breath or wheezing #8.5 grams prednisone 50 mg tablet 50 mg PO DAILY #4 tabs 02/17/23 albuterol sulfate 90 mcg/actuation 2 puff inhalation Q4-6H PRN 04/09/23 aerosol inhaler (ProAir HFA) bronchospasm #8.5 grams prednisone 20 mg tablet 40 mg (2 x 20 mg) PO DAILY #10 tabs 04/09/23 nicotine (polacrilex) 4 mg buccal 4 mg buccal Q2-4H PRN nicotine 04/19/23 mini lozenge cravings 30 days #81 ea nicotine (polacrilex) 4 mg gum 4 mg buccal Q1H 30 days #110 ea 04/19/23 umeclidinium 62.5 mcg-vilanterol 1 inh inhalation DAILY 30 days #1 10/24/23 25 mcg/actuation powdr for ea inhalation (Anoro Ellipta) furosemide 40 mg tablet 40 mg PO DAILY 30 days #30 tabs 11/01/23 ipratropium 20 mcg-albuterol 100 1 puff inhalation Q6H 30 days #4 11/01/23 mcg/actuation mist for inhalation grams (Combivent Respimat) ipratropium 0.5 mg-albuterol 3 mg 3 ml inhalation Q4-6H PRN wheezing 11/08/23 (2.5 mg base)/3 mL nebulization 30 days #180 mL soln Allergies Allergy/AdvReac Type Severity Reaction Status Date / Time No Known Allergies Allergy Unknown Verified 11/10/23 14:05 Review of Systems Review of Systems: Constitutional : No Weight loss, No Fever, No Chills, No Night Sweats, No Fatigue, No Malaise ENT/Mouth : No Hearing loss, No Ear Pain, No Nasal Congestion, No Sinus Pain, No Hoarseness, No sore throat, No Rhinorrhea, No Swallowing Difficulty Eyes: No Eye Pain, No Swelling, No Redness, No Foreign Body, No Discharge, No Vision Changes Cardiovascular : No Chest Pain, No SOB, No Dyspnea on Exertion, No Orthopnea, No Edema, No Palpitations Respiratory : No Cough, No Sputum, No Wheezing, No Smoke Exposure, No Dyspnea Gastrointestinal : No Nausea, No Vomiting, No Diarrhea, No Constipation, No abdominal Pain, No Hematochezia, No Melena Genitourinary : no irregular bleeding, No Dysuria, No Urinary Frequency, No Hematuria, No Urinary Incontinence, No Urgency, No Flank Pain, No Urinary Flow Changes, No Hesitancy Musculoskeletal : No joint pain, No Myalgias, No Joint Swelling Skin : No Skin Lesions, No rash Neuro : No Weakness, No Numbness, No Paresthesias, No Loss of Consciousness, No Dizziness, No Headache Psych : No Anxiety/Panic, No Depression, No SI/HI/AH/VH, No Social Issues, Heme/Lymph: No Bruising, No Bleeding,No Lymphadenopathy Endocrine : No Polyuria, No Polydipsia, No Temperature Intolerance [facility] Past Medical History Medical History Smoker COPD (chronic obstructive pulmonary disease) HTN (hypertension) Acid reflux Diverticulitis Surgical History Hx of colonoscopy History of colostomy reversal H/O colostomy Family History Family History Mother Diabetes Arthritis Sleep apnea COPD (chronic obstructive pulmonary disease) Father Stomach cancer Diabetes Arthritis Sister Arthritis Social History Social History Household Members: Spouse Alcohol intake: current Alcohol intake frequency: holidays/special occasions only Alcohol type: beer and hard liquor Patient Tobacco Use Status: Former Tobacco user Cigarette Packs Per Day: 1.5 Years Smoked: 35 Advance Directives: No Advance Directives Information Provided: Yes Current occupational status: employed Current occupation: [employer] Physical Exam ED Vital Signs: Vital Signs - 24 hr 11/10/23 14:00 11/10/23 19:45 Temperature 98 F 98.1 F Pulse Rate 79 87 Respiratory Rate 19 22 H Blood Pressure 127/79 132/72 Pulse Oximetry 95 94 Oxygen Delivery Method Room Air BMI result Body Mass Index 47.7 Const Other: Appearance: Alert. Oriented X3. No acute distress. Eyes: Pupils equal, round and reactive to light. ENT: Pharynx normal. Neck: Normal inspection. Neck supple. No lymph nodes noted. No crepitus , no palpable thyroid, no lumps CVS: Normal heart rate and rhythm. Pulses normal. Normal S1 and S2 Respiratory: No respiratory distress. Breath sounds normal. No Wheezing. No rales Abdomen: Soft and nontender. No rigidity. No distention. Skin: Skin warm and dry. Normal skin color. Normal skin turgor. Extremities: No lower extremity edema. No Lacerations. No Rash Neuro: Oriented X 3. No motor deficit. No sensory deficit. Moving all extremities. No slurred speech. CN 2 through 12 grossly intact Psych: calm, cooperative, normal affect Course Course Course Narrative: This is an RME: Additional HPI, ROS, PE not included below will be deferred to primary provider. 58 yo male presents thinking he has large neck after cutting chang today. Denies chest pain, shortness of breath, fever, chills, dizziness. Medical Decision Making Medical Decision Making [facility] Narrative: I discussed the physical exam with the patient, his neck is normal for his body habitus - strep test negative Lab Data [facility] Lab Attestation statement: I reviewed the patient's lab results. Labs: Lab Results 04/18/24 Range/Units 14:20 S. pyogenes GrpA SHEN Negative (Negative) Discharge Plan Discharge Clinical Impression: Normal exam Patient Disposition: Home, Self-Care Instructions: Normal Exam (ED) Additional Instructions: Please follow-up with your primary care physician tomorrow. If you have any worsening or new symptoms, please return to the emergency room or call 911 Prescriptions: No Action Anoro Ellipta 62.5-25 mcg/actuation blister with device 1 inh inhalation DAILY 30 Days Qty: 1 6RF ipratropium-albuterol 0.5 mg-3 mg(2.5 mg base)/3 mL solution for nebulization 3 ml inhalation Q4-6H PRN (Reason: wheezing) 30 Days Qty: 180 2RF albuterol sulfate 90 mcg/actuation aerosol powdr breath activated 2 inh inhalation Q4-6H PRN (Reason: shortness of breath or wheezing) Qty: 1 0RF metoprolol succinate 50 mg tablet extended release 24 hr 1 tab PO DAILY albuterol sulfate 90 mcg/actuation HFA aerosol inhaler 1 inh inhalation QID PRN (Reason: shortness of breath or wheezing) Qty: 8.5 0RF prednisone 50 mg tablet 50 mg PO DAILY Qty: 4 0RF prednisone 20 mg tablet 40 mg PO DAILY Qty: 10 0RF albuterol sulfate [ProAir HFA] 90 mcg/actuation HFA aerosol inhaler 2 puff inhalation Q4-6H PRN (Reason: bronchospasm) Qty: 8.5 0RF omeprazole 20 mg capsule,delayed release(DR/EC) 20 mg PO DAILY Qty: 30 5RF docusate sodium [Colace] 100 mg capsule 200 mg PO BEDTIME Qty: 60 5RF furosemide 40 mg tablet 40 mg PO DAILY 30 Days Qty: 30 6RF Combivent Respimat 20-100 mcg/actuation mist 1 puff inhalation Q6H 30 Days Qty: 4 6RF nicotine (polacrilex) 4 mg gum 4 mg buccal Q1H 30 Days Qty: 110 3RF nicotine (polacrilex) 4 mg mini lozenge 4 mg buccal Q2-4H PRN (Reason: nicotine cravings) 30 Days Qty: 81 6RF Print Language: Persian
[2023-11-10 14:00] VITALS: BP 127/79; PULSE 79; RESP 19; TEMP 36.6; O2SAT 95; BMI 47.7
[2023-11-10 14:34] LABS: IDNOW Serial# 58CA691E; Strep A Nucleic Acid Negative (Negative)
[2023-11-10 19:45] VITALS: BP 132/72; PULSE 87; RESP 22; TEMP 36.7; O2SAT 94
[2023-11-10 20:54] VITALS: BP 128/70; PULSE 85; RESP 20; TEMP 36.6; O2SAT 94
== END 2023-11-10 20:54 | disposition home or self-care (01) ==
PROVIDERS: Physician Assistant; Emergency Provider Emergency Medicine; PCP Internal Medicine Medical Oncology
DX: Z71.1 Person with feared health complaint in whom no diagnosis is made (principal); I10 Essential (primary) hypertension; J44.9 Chronic obstructive pulmonary disease, unspecified
CPT/HCPCS: 87651; 99282; 99283

== ENCOUNTER → 2023-11-22 10:42 | Outpatient (REF) | payer OTHER, SELFPAY ==
--- NOTE | 2023-11-22 10:45 | CA_ITS ---
Transthoracic Echocardiogram Patient (Last, First, Middle): Phil Bernardo A Gender: Male Date of : 1965 Age: 58 Procedure Date: 11/22/2023 Procedure Type: Transthoracic Echocardiogram Location: OP Height: 175.26 cm Weight: 136.08 kg BSA: 2.45 m2 Heart Rate: bpm BP: 138 / 60 mmHg [employer] Thread Tool: SEE Referring MD: Dagoberto Choudhury MD Symptoms: R06.09 - Other forms of dyspnea Study Quality: Fair ECG Rhythm: Sinus Conclusions: - The left ventricular systolic function is hyperdynamic. The visually estimated ejection fraction is >70%. - There is mild calcification of the aortic valve. - There is mild mitral annular calcification. - There is a small loculated pericardial effusion overlying the right atrium. Findings Left Ventricle Normal left ventricular cavity size. There is normal left ventricular wall thickness. The left ventricular systolic function is hyperdynamic. The visually estimated ejection fraction is >70%. There is no evidence of regional wall motion abnormalities. Diastolic function is normal for age. Right Ventricle Normal right ventricular cavity size and systolic function. Atria Both atria are normal in size. Aortic Valve There is mild calcification of the aortic valve. There is no aortic valve stenosis. There is no aortic valve regurgitation. Mitral Valve There is mild mitral annular calcification. There is no mitral valve regurgitation. There is no mitral valve stenosis. Pulmonic Valve The pulmonic valve is likely normal. Tricuspid Valve There is trace tricuspid valve regurgitation. Tricuspid regurgitation envelope is inadequate for calculation of right ventricular systolic pressure. Great Vessels The asc aorta is normal in size. Venous The inferior vena cava is normal in size and collapses greater than 50% with inspiration. Pericardium/Pleural There is a small loculated pericardial effusion overlying the right atrium. Prior Study Comparison No prior study available for comparison. Measurements 2D Linear Measurements IVSd: 0.91 0.6-0.9/0.6-1.0 cm LVIDd: 5.27 3.9-5.3/4.2-5.9 cm LVIDd Index: 2.15 2.4-3.2/2.2-3.1 cm/m2 LVIDs: 2.35 2.0-3.6 cm LVPWd: 0.97 0.7-1.1 cm LA Diam: 4.20 2.7-3.8/3.0-4.0 cm LAIDs Index: 1.71 1.5-2.3 cm/m2 LV Mass: 228.09 67-162/88-224 g LV Mass Index: 93.10 43-95/49-115 g/m2 LVOT Diam: 2.40 3.0+(-)1.3 cm 2D Systolic Function EF 4C: 77.60 >55% EF 2C: 71.20 >55% EF BiP: 74.70 >55% Mitral Valve MV Pk E: 1.02 MV PK A: 1.02 MV Decel Time: 199.00 E/A: 1.00 E'Lateral: 8.92 E'Medial: 6.64 E/E' Med: 15.40 E/E' Lat: 11.40 PHT: 58.00 MVA PHT: 3.79 Decel [place]: 5.13 Aortic Valve AoV Pk Jayme: 2.11 AoV Mn Jayme: 1.55 AoV VTI: 0.35 AoV Pk Grad: 18.00 Aov Mn Grad: 11.00 MASON Cont.VTI: 3.67 LVOT LVOT Pk Jayme: 1.56 LVOT Mn Jayme: 1.14 LVOT VTI: 0.29 LVOT Pk Grad: 10.00 LVOT Mn Grad: 6.00 LVOT Diam: 2.40 LVOT Area: 4.52 Diastolic Function MV Pk E: 1.02 MV Pk A: 1.02 E/A: 1.00 E'Medial: 6.64 E/E' Med: 15.40 E' Laterial: 8.92 E/E' Lat: 11.40 Right Ventricle TAPSE (mm): 23.40 TVS' Jayme: 18.20 Great Vessels Aorta Sinus of Valsalva: 3.20 2.0-3.5 cm Ao Asc: 3.50 2.1-3.4 cm Pulmonary Valve PV Pk Jayme: 1.18 Peak PV Grad: 6.00 Updated in Other Vendor System with Status of Final Dave Pineda MD electronically signed on 11/24/2023 10:02:34 AM with status of Final
== END ==
LOC: HO.CARD 10:42
PROVIDERS: PCP Internal Medicine Medical Oncology; Visit Provider Internal Medicine Pulmonary Disease
DX: R06.09 Other forms of dyspnea (principal)
CPT/HCPCS: 93306

== ENCOUNTER → 2023-11-22 10:45 | Outpatient (BNV) | payer OTHER, SELFPAY | PROVIDERS: PCP Internal Medicine Medical Oncology; Visit Provider Internal Medicine | DX: I34.81 Nonrheumatic mitral (valve) annulus calcification (principal); I35.8 Other nonrheumatic aortic valve disorders | CPT/HCPCS: 93306 ==

== ENCOUNTER 2023-12-01 10:31 | Outpatient (AMB) | payer OTHER, SELFPAY ==
[2023-12-01 10:43] VITALS: BP 138/74; PULSE 101; O2SAT 92; BMI 41.9
--- NOTE | 2023-12-01 10:43 | MHC.OFFVIS ---
Vital Signs 12/01/23 10:43 Height 5 ft 10 in Weight 292 lb 1.8 oz BMI 41.9 BP 138/74 Blood Pressure Location Rt brachial Position Sitting Pulse 101 H Pulse Source Doppler Pulse Oximetry (%) 92 Oxygen Delivery Method Room Air Intake Visit Reasons: Obstructive sleep apnea Allergies No Known Allergies Allergy (Unknown, Verified 11/10/23 14:05) HPI HPI Obstructive sleep apnea: Details: 58-year-old gentleman recent 30+ pack-year smoker, quit 04/2023 now followed for pulmonary emphysema KIRILL pending CPAP, and dyspnea on exertion. After the last office visit patient has been using Combivent with improved control of his symptoms. Though, he still complains of significant dyspnea on exertion. His CPAP is pending. His lower extremity edema is better controlled on Lasix. [facility] Medical History Smoker COPD (chronic obstructive pulmonary disease) HTN (hypertension) Acid reflux Diverticulitis Surgical History Hx of colonoscopy History of colostomy reversal H/O colostomy Family History Mother Diabetes Arthritis Sleep apnea COPD (chronic obstructive pulmonary disease) Father Stomach cancer Diabetes Arthritis Sister Arthritis Social History Household Members: Spouse Alcohol intake: current Alcohol intake frequency: holidays/special occasions only Alcohol type: beer and hard liquor Patient Tobacco Use Status: Former Tobacco user Cigarette Packs Per Day: 1.5 Years Smoked: 35 Current occupational status: employed Current occupation: [employer] Review [employer] Systems Const Reports daytime sleepiness, Denies excessive sweating, Denies fatigue, Denies fever(s), Denies lethargy, Reports malaise, Denies night sweats, Reports snoring and Denies weight loss Eyes Denies blurry vision and Denies itchy eyes ENT Denies nasal congestion, Denies post nasal drip, Denies sinus pain, Denies sinus pressure and Denies other ( Thrush) Card Denies chest pain, Reports pedal edema, Denies dyspnea, Reports dyspnea on exertion, Reports orthopnea and Denies paroxysmal nocturnal dyspnea Resp Denies cough, Denies hemoptysis, Denies excessive phlegm production, Denies dyspnea, Reports dyspnea on exertion, Reports snoring and Denies wheezing GI Denies abdominal pain and Denies heartburn Musc Denies myalgias, Denies arthralgias and Denies joint swelling Skin/Breast Denies rash Neuro Denies memory loss and Denies seizure-like activity Psych Denies abnormal sleep pattern, Denies anxiety and Denies memory loss Endo Denies excessive sweating, Denies fatigue and Denies heat intolerance Liam/Lymph Denies easy bruising Aller/Immun Denies itchy eyes, Denies seasonal rhinorrhea and Denies wheezing Physical Exam Vital Signs: Last Vital Signs Pulse 101 H 12/01/23 10:43 BP 138/74 12/01/23 10:43 Pulse Ox 92 12/01/23 10:43 Oxygen Delivery Method Room Air 12/01/23 10:43 BMI result Body Mass Index 41.9 Const General: no acute distress and alert Nutritional Appearance: obese Orientation/consciousness: Other orientation findings ( oriented) HEENT Head: Yes atraumatic Eyes General: appearance normal, both eyes and all related structures Sclerae: sclerae normal EOM: EOMs intact bilaterally Neck Neck: Yes supple Lymphatic: no lymphadenopathy noted Resp Effort & Inspection: normal respiratory effort and no use of accessory muscles Auscultation: clear to auscultation bilaterally Cardio Rate: regular rate Rhythm: regular rhythm Heart sounds: no gallops, no murmurs and no rubs Skin General skin exam: other ( warm) Extrem General: No clubbing, No cyanosis and No edema Assessment & Plan Assessment & Plan (1) Pulmonary emphysema: Code(s): J43.9 - Emphysema, unspecified Category: Medical Plan: Improved control after switching from albuterol to Combivent continue Anoro. (2) KIRILL (obstructive sleep apnea): Code(s): G47.33 - Obstructive sleep apnea (adult) (pediatric) Category: Medical Plan: Underlying severe KIRILL with AHI of 111. CPAP is pending. (3) Dyspnea on exertion: Code(s): R06.09 - Other forms of dyspnea Category: Medical Plan: S significant obesity/deconditioning component. Lower extremity edema with improved control on Lasix 40 mg daily. 2D echo reviewed and is essentially normal. Coding Level of Care Code Est Pt Level 4 (27371) Diagnoses Pulmonary emphysema J43.9 KIRILL (obstructive sleep apnea) G47.33 Dyspnea on exertion R06.09
== END 2023-12-01 11:05 | disposition home or self-care (01) ==
PROVIDERS: PCP Internal Medicine Medical Oncology; Visit Provider Internal Medicine Pulmonary Disease
DX: J43.9 Emphysema, unspecified (principal); G47.33 Obstructive sleep apnea (adult) (pediatric); R06.09 Other forms of dyspnea
CPT/HCPCS: 99214

== ENCOUNTER → 2023-12-01 10:31 | Outpatient (BNVA) | payer OTHER, SELFPAY | PROVIDERS: PCP Internal Medicine Medical Oncology; Visit Provider Internal Medicine Pulmonary Disease ==

== ENCOUNTER 2023-12-09 08:58 | Inpatient (IN) | payer OTHER, SELFPAY ==
[2023-12-09] VITALS (10 sets, daily range): BP systolic 101–141; BP diastolic 69–79; PULSE 95–108; RESP 16–26; TEMP 36.7–37.6; O2SAT 89–99; BMI 42.6
--- NOTE | 2023-12-09 | ECG_ITS ---
Test Reason : DYSPNEA Blood Pressure : / mmHG Vent. Rate : 094 BPM Atrial Rate : 094 BPM P-R Int : 140 ms QRS Dur : 086 ms QT Int : 374 ms P-R-T Axes : 067 074 077 degrees QTc Int : 467 ms Normal sinus rhythm Normal ECG When compared with ECG of 08-APR-2023 23:27, No significant change was found Referred By: Generic ED Physician Electronically Signed By:JYOTHI ORTIZ MD
--- NOTE | ~2023-12-09 | XR_ITS ---
EXAMINATION: XR CHEST CLINICAL INFORMATION: Dyspnea COMPARISON: 10/04/2023 TECHNIQUE: Frontal view of the chest was obtained. FINDINGS: Lungs are well expanded. Linear opacity of discoid atelectasis of the lingula. The hazy opacities at the medial bases correspond to the prominent paracardiac fat pads. Cardiac silhouette is normal in size. Pulmonary vascular pattern is normal. No acute osseous abnormality. XR/XR chest 1V IMPRESSION: No acute pulmonary disease compared to 10/04/2023.
[2023-12-09] MEDS: Albuterol Sulfate 2.5 MG, Albuterol/Iprat 2.5/0.5MG 3 ML 3 ML INHALE ×2 (09:29→11:31)
--- NOTE | 2023-12-09 09:34 | ED_ITS ---
HPI - SOB/Dyspnea General Chief Complaint: Dyspnea Stated Complaint: SOB Time Seen by Provider: 12/09/23 09:16 Source: patient and family Mode of arrival: wheelchair Limitations: no limitations History of Present Illness HPI Narrative: Patient is a 58-year-old male who presents to the emergency department with his after feeling unwell for 1 week. He has been experiencing body aches, increasing shortness of breath particularly with exertion, and nonproductive cough, intermittent chest pain. Shortness of breath has been minimally relieved by his inhaler/nebulizers. Denies any fever. Denies known sick contact. Related Data Home Medications ?Medication ?Instructions ?Recorded ?Confirmed acetaminophen 500 mg tablet 1,000 mg PO DAILY PRN Pain 12/09/23 12/09/23 albuterol sulfate 90 mcg/actuation 1 inh inhalation Q4-6H PRN 12/09/23 12/09/23 aerosol inhaler shortness of breath or wheezing docusate sodium 100 mg capsule 100 mg PO BEDTIME 12/09/23 12/09/23 (Colace) ibuprofen 200 mg tablet 400 mg PO Q8H PRN Pain 12/09/23 12/09/23 polyethylene glycol 3350 17 17 g PO BEDTIME 12/09/23 12/09/23 gram/dose oral powder (Miralax) prednisone 20 mg tablet 20 mg PO DAILY PRN shortness or 12/09/23 12/09/23 breath/flare Previous Rx's ?Medication ?Instructions ?Recorded umeclidinium 62.5 mcg-vilanterol 1 inh inhalation DAILY 30 days #1 10/24/23 25 mcg/actuation powdr for ea inhalation (Anoro Ellipta) furosemide 40 mg tablet 40 mg PO DAILY 30 days #30 tabs 11/01/23 ipratropium 20 mcg-albuterol 100 1 puff inhalation Q6H 30 days #4 11/01/23 mcg/actuation mist for inhalation grams (Combivent Respimat) ipratropium 0.5 mg-albuterol 3 mg 3 ml inhalation Q4-6H PRN wheezing 11/08/23 (2.5 mg base)/3 mL nebulization 30 days #180 mL soln Allergies Allergy/AdvReac Type Severity Reaction Status Date / Time No Known Allergies Allergy Unknown Verified 12/09/23 09:06 Review of Systems 2 Review of Systems: Yes all other systems are reviewed and are negative [facility] Past Medical History Attestation statement: The following information was validated with the patient. Source: old records reviewed Medical History Smoker COPD (chronic obstructive pulmonary disease) HTN (hypertension) Acid reflux Diverticulitis Surgical History Hx of colonoscopy History of colostomy reversal H/O colostomy Family History Family History Mother Diabetes Arthritis Sleep apnea COPD (chronic obstructive pulmonary disease) Father Stomach cancer Diabetes Arthritis Sister Arthritis Social History Social History Household Members: Spouse Alcohol intake: current Alcohol intake frequency: holidays/special occasions only Alcohol type: beer and hard liquor Patient Tobacco Use Status: Former Tobacco user Cigarette Packs Per Day: 1.5 Years Smoked: 35 Advance Directives: No Advance Directives Information Provided: No Do you have a plan to hurt others: No Plan Nutrition Risks: No Nutritional Risk Current occupational status: employed Current occupation: [employer] Physical Exam 2 Vital Signs: Vital Signs: Last Vital Signs Temp 98.1 F 12/09/23 15:14 Pulse 95 12/09/23 15:23 Resp 19 12/09/23 15:23 BP 132/69 12/09/23 15:14 Pulse Ox 94 12/09/23 15:14 O2 Del Method Room Air 12/09/23 15:14 O2 Flow Rate 2 12/09/23 11:24 BMI result Body Mass Index 42.6 Appearance: Alert.?Oriented to person, place and time. No acute distress.?Normal affect. Eyes: Pupils equal, round and reactive to light.? ENT: Pharynx normal.?? Neck: Normal inspection.? Neck supple.?? CVS: Heart sounds normal. Normal heart rate and rhythm.? Pulses normal.?? Respiratory: Room-air hypoxia, dyspneic on exertion, increased work of breathing, tachypneic Lung sounds tight with minimal movement bilaterally, faint inspiratory and expiratory wheezing Abdomen: Soft and non-tender. Normoactive bowel sounds. Skin: Skin warm and dry.? Normal skin color.? ? Extremities: No lower extremity edema.? No calf ttp? Neuro: Moves all extremities spontaneously. Sensation intact bilaterally. Ambulates with normal steady gait. Course Reevaluation(s) Reevaluation #1: CBC is without leukocytosis anemia or thrombocytopenia. lactic acid of 2.2, 1L IVF ordered, not hypotensive, no signs of severe sepsis at this time suspect this is due to hypoxia and albuterol usage. High sensitive troponin within normal range 3.4, BNP not consistent with CHF. No electrolyte derangement, bicarb elevated at 33, appears comparable to prior levels since diagnosis of emphysema. Venous gas with CO2 of 64, acidotic pH 7.35. At this time feel that he is appropriate for admission to medicine service. Time: 10:52 Medications Administered Generic Name Dose Route Start Last Admin Trade Name Freq PRN Reason Stop Dose Admin Albuterol/Ipratropium 3 ml 12/09/23 16:00 12/09/23 15:23 Albuterol/Iprat 2.5/0.5mg 3 Ml Ampul.Neb INHALE 3 ml RQ4H WHILE AWAKE MILES Administration Enoxaparin Sodium 40 mg 12/09/23 12:15 12/09/23 13:17 Enoxaparin Sodium 40 Mg/0.4 Ml Syringe SUBCUT 40 mg Q24H MILES Administration Azithromycin 500 mg/ Sodium 250 mls @ 125 mls/hr 12/09/23 13:00 12/09/23 13:18 Chloride IV 125 mls/hr Q24H MILES Administration Nicotine 21 mg 12/09/23 12:15 12/09/23 13:18 Nicotine 21 Mg Patch.Td24 TRANSDERMA 21 mg DAILY MILES Administration Discontinued Medications Generic Name Dose Route Start Last Admin Trade Name Freq PRN Reason Stop Dose Admin Albuterol Sulfate 7.5 mg 12/09/23 10:11 12/09/23 10:17 Albuterol Sulfate (0.083%) 2.5 Mg/3 Ml Vial.Neb INHALE 12/09/23 10:12 7.5 mg ONCE ONE Administration Albuterol Sulfate 2.5 mg/ 0 mg 12/09/23 09:24 12/09/23 09:29 Albuterol/Ipratropium 3 ml INHALE 12/09/23 09:25 5 dose ONCE ONE Administration Albuterol Sulfate 2.5 mg/ 0 mg 12/09/23 11:29 12/09/23 11:31 Albuterol/Ipratropium 3 ml INHALE 12/09/23 11:30 5 dose ONCE ONE Administration Ceftriaxone Sodium 1 gm/ 50 mls @ 100 mls/hr 12/09/23 09:16 12/09/23 11:15 Sodium Chloride IV 12/09/23 09:45 Infused ONCE ONE Infusion Sodium Chloride 1,000 mls @ 999 mls/hr 12/09/23 10:15 12/09/23 13:48 Ns IV 12/09/23 11:15 Infused .Q1H1M MILES Infusion Magnesium Sulfate 2 gm in 50 mls @ 25 mls/hr 12/09/23 12:05 12/09/23 15:38 Magnesium Sulfate/H2o IV 12/09/23 14:04 Infused ONCE ONE Infusion Methylprednisolone Sodium Succinate 60 mg 12/09/23 09:16 12/09/23 10:02 Methylprednisolone Sod Succ 125 Mg/2 Ml Vial IVPUSH 12/09/23 09:17 60 mg ONCE ONE Administration Medical Decision Making Medical Decision Making MDM Narrative: Patient is a 58-year-old male with past medical history of pulmonary emphysema, KIRILL awaiting CPAP, long-term smoker, hypertension, GERD, diverticulitis presenting to emergency department for evaluation of shortness of breath as per HPI. Presented with acute hypoxic respiratory failure, increased work of breathing as per HPI physical exam portion of this note. He was placed on O2 via nasal cannula at 3 L with O2 saturation up to 94 %, patient received albuterol nebulizer, Solu-Medrol 60 mg IV, Rocephin 1 g IV. Suspect acute exacerbation of pulmonary emphysema verses pneumonia versus viral syndrome Differential Diagnosis Differential Diagnoses: The differential diagnosis associated with the presentation includes (See narrative above) Admission/Observation Consideration of admission/observation: Escalation of care including admission/observation considered (See narrative above and course narrative for further detail) Consult Healthcare Provider Management of the patient was discussed with: Hospitalist Lab Data MDM Lab Attestation statement: I reviewed the patient's lab results. (See course narrative) 12/09/23 09:35 12/09/23 09:35 Labs: Lab Results 12/09/23 12/09/23 Range/Units 09:35 09:42 WBC 7.0 (4.8-10.8) X10*3/uL RBC 5.25 (4.60-5.80) X10*6/uL Hgb 15.7 (14.0-18.0) g/dl Hct 49.2 (42.0-52.0) % MCV 93.7 (80.0-98.0) fL MCH 29.9 (27.0-33.0) pg MCHC 31.9 (31.0-36.0) g/dl RDW 16.4 H (11.0-16.0) % Plt Count 306 (160-400) X10*3/uL MPV 9.4 (9.4-12.4) fL Immature Gran % (Auto) 0.1 (0.0-0.4) % Neut % (Auto) 60.9 (45-73) % Lymph % (Auto) 26.9 (20-40) % [place] % (Auto) 6.6 (2-11) % Eos % (Auto) 4.9 H (0-4) % Baso % (Auto) 0.6 (0-2) % Lymph # (Auto) 1.9 (1.2-4.9) X10*3/uL [place] # (Auto) 0.5 (0.1-1.2) X10*3/uL Eos # (Auto) 0.3 (0.0-0.4) X10*3/uL Baso # (Auto) 0.0 (0.0-0.2) X10*3/uL Abs Immat Gran (auto) 0.01 (0.00-0.03) X10*3/uL Absolute Neuts (auto) 4.3 (2.0-8.3) x10*3/uL Absolute Nucleated RBC 0.000 (0.0-0.012) X10*3/uL Nucleated RBC % (auto) 0.0 (0.0-0.2) /100WBC VBG pH 7.35 (7.32-7.43) VBG pCO2 64 mmHg VBG pO2 59 mmHg VBG HCO3 36 H (22-26) mmol/L VBG O2 Saturation 86.0 % VBG Base Excess 7.6 mmol/L Sodium 141 (135-145) mmol/L Potassium 3.8 D (3.3-5.1) mmol/L Chloride 100 (96-108) mmol/L Carbon Dioxide 33 H (22-29) mmol/L Anion Gap 12 (12-20) BUN 10 (9-16) mg/dL Creatinine 0.94 (0.5-1.4) mg/dL Estim Creat Clear Calc 117.5 Estimated GFR > 60 Random Glucose 155 H (60-115) mg/dL Lactic Acid 2.2 H* (0.5-2.0) mmol/L Calcium 8.9 (8.4-10.2) mg/dL Magnesium 1.9 (1.6-2.6) mg/dL Total Bilirubin 0.2 (0.0-1.0) mg/dL Direct Bilirubin < 0.2 (0.0-0.5) mg/dL AST 20 (5-37) U/L ALT 27 (0-40) U/L Alkaline Phosphatase 107 (39-117) U/L Troponin I High Sens 3.4 (<3.5-35.0) ng/L B-Natriuretic Peptide < 10 (<100) pg/mL Total Protein 8.2 H (6.5-8.0) g/dL Albumin 3.3 L (3.5-5.0) g/dL Procalcitonin 0.05 ng/mL Influenza Type A (PCR) NEGATIVE (Negative) Influenza Type B (PCR) NEGATIVE (Negative) RSV RNA Qual (PCR) NEGATIVE (Negative) SARS-CoV-2 RNA (RT-PCR) NEGATIVE (Negative) Independent Interpretation I performed an independent interpretation of an: Plain X-Ray (No pneumothorax, pleural effusions, or pneumonia) Radiology Impression Discussion of test interpretation with radiology: I have reviewed the radiologist's reading. Radiologist Impression: XR/XR chest 1V IMPRESSION: No acute pulmonary disease compared to 10/04/2023. Independent Historian Clinical information obtained from an independent historian. History obtained from or confirmed by: Spouse External Record Review External record reviewed: Outpatient record Procedures Smoking Cessation Time Spent Discussing Smoking Cessation w/Patient (min): 5 Patient Acknowledges Need for Cessation: Yes Additional Comments: Amenable to NRT at this time, Critical Care Time Critical Care Time Critical Care Time: Yes Total Critical Care Time: 45 Attestation: I personally attest to this critical care time spent taking care of the patient exclusive of all other billable procedures was approximately 45 minutes including initial evaluation of patient, ordering tests, x-ray interpretation, EKG interpretation, medical consultation, documentation, re-evaluation. Discharge Plan Discharge Clinical Impression: Acute exacerbation of chronic obstructive airways disease Patient Disposition: Admitted As Inpatient
[2023-12-09 09:43] LABS: MANUAL DIFF FLAG NO
[2023-12-09 09:46] LABS: Basophils Percent Auto 0.6 % (0-2); Eosinophils Absolute Auto 0.3 X10*3/uL (0.0-0.4); Eosinophils Percent Auto 4.9 % (0-4); Hematocrit 49.2 % (42.0-52.0); Hemoglobin 15.7 g/dl (14.0-18.0); Imm Gran Abs Auto 0.01 X10*3/uL (0.00-0.03); Imm Gran Pct Auto 0.1 % (0.0-0.4); Lymphocytes Absolute Auto 1.9 X10*3/uL (1.2-4.9); Lymphocytes Percent Auto 26.9 % (20-40); Mean Corpuscular HGB Conc 31.9 g/dl (31.0-36.0); Mean Corpuscular Hemoglobin 29.9 pg (27.0-33.0); Mean Corpuscular Volume 93.7 fL (80.0-98.0); Mean Platelet Volume 9.4 fL (9.4-12.4); Monocytes Absolute Auto 0.5 X10*3/uL (0.1-1.2); Monocytes Percent Auto 6.6 % (2-11); Neutrophils Absolute Auto 4.3 x10*3/uL (2.0-8.3); Neutrophils Percent Auto 60.9 % (45-73); Platelet Count 306 X10*3/uL (160-400); Red Blood Count 5.25 X10*6/uL (4.60-5.80); Red Cell Distribution Width 16.4 % (11.0-16.0)
[2023-12-09] MEDS: methylPREDNISolone Sod Succ 125 MG/2 ML VIAL 60 MG IVPUSH (10:02)
[2023-12-09 10:03] LABS: Alanine Aminotransferase 27 U/L (0-40); Albumin Level 3.3 g/dL (3.5-5.0); Alkaline Phosphatase 107 U/L (39-117); Anion Gap 12 (12-20); Aspartate Amino Transferase 20 U/L (5-37); Bilirubin Direct < 0.2 mg/dL (0.0-0.5); Bilirubin Total 0.2 mg/dL (0.0-1.0); Blood Urea Nitrogen 10 mg/dL (9-16); Calcium 8.9 mg/dL (8.4-10.2); Carbon Dioxide 33 mmol/L (22-29); Chloride 100 mmol/L (96-108); Creatinine Clr Calc Pharmacy 117.5; Estimated Glomerular Filt Rate > 60; Glucose Random 155 mg/dL (60-115); Magnesium 1.9 mg/dL (1.6-2.6); Potassium 3.8 mmol/L (3.3-5.1); Sodium 141 mmol/L (135-145); Total Protein 8.2 g/dL (6.5-8.0)
[2023-12-09] MEDS: cefTRIAXone sodium 1 GM in 0.9 % Sodium Chloride 50 ML IV (10:04)
[2023-12-09 10:05] LABS: Lactic Acid 2.2 mmol/L (0.5-2.0)
[2023-12-09 10:07] LABS: B Type Natriuretic Peptide < 10 pg/mL (<100)
[2023-12-09 10:10] LABS: Troponin-I High Sensitivity 3.4 ng/L (<3.5-35.0)
[2023-12-09] MEDS: Albuterol Sulfate (0.083%) 2.5 MG/3 ML VIAL.NEB 7.5 MG INHALE (10:17)
[2023-12-09 10:32] LABS: Influenza A PCR NEGATIVE (Negative); Influenza B PCR NEGATIVE (Negative); Resp Syncy Virus RNA Qual PCR NEGATIVE (Negative); SARS COV2 PCR INHOUSE NEGATIVE (Negative)
[2023-12-09 10:38] LABS: VBG Base Excess 7.6 mmol/L; VBG HCO3 36 mmol/L (22-26); VBG pCO2 64 mmHg; VBG pH 7.35 (7.32-7.43); VBG pO2 59 mmHg
[2023-12-09 10:42] LABS: Venous Blood Gas Refer to POC result
--- NOTE | 2023-12-09 11:19 | P.HPHOSP_ITS ---
History of Present Illness Date of Service: 12/09/23 Attending physician on admission: Zaheer Christianson Chief Complaint: SOB Pt is a 58-year-old male with a PMH significant for?done COPD, 30+ pack-year smoker currently smoking half+ pack daily, KIRILL pending CPAP, chronic lower leg edema on Lasix, and GERD who presents to the ED with?worsening SOB, ORTEGA, fatigue, and cough occasionally productive of clear sputum x4 days. Reports severe short of breath and difficulty breathing with walking just to the bathroom. Not on home O2. Also endorses chest tightness with cough and when feeling anxious. States he has been using his home inhalers with the effect. Has not been eating or drinking much the past few days. Reports some subjective chills, but no measured fever. Denies nausea, vomiting, abdominal pain. In the ED pt with elevated temperature 99.6 degrees, tachycardia 102, tachypnea of 26, and hypoxic at 89% on RA. Labs were significant for lactic acid 2.2, otherwise grossly unremarkable and baseline for patient. No leukocytosis. Stable H&H. No thrombopenia. No significant electrolyte abnormalities. Bicarb 33. Renal and hepatic function baseline. BNP negative. Troponin WNL at 3.4. Tested negative for flu, RSV, COVID. CXR showed no acute pulmonary disease compared to prior. EKG demonstrated normal sinus rhythm with no significant evidence of ST elevations or depressions. Pt was treated with DuoNebs, albuterol IVF, Solu-Medrol and ceftriaxone. Pt will be admitted to the hospital for treatment further evaluation acute hypoxic respiratory failure in the setting of COPD exacerbation. Review of Systems 2 Review of Systems: SOB, ORTEGA Nonproductive cough Increased fatigue Chest tightness associated with cough Anorexia Subjective chills Denies nausea, vomiting, abdominal pain [facility] Medical History Smoker COPD (chronic obstructive pulmonary disease) HTN (hypertension) Acid reflux Diverticulitis Family History Mother Diabetes Arthritis Sleep apnea COPD (chronic obstructive pulmonary disease) Father Stomach cancer Diabetes Arthritis Sister Arthritis Surgical History Hx of colonoscopy History of colostomy reversal H/O colostomy Social History Household Members: Spouse Alcohol intake: current Alcohol intake frequency: holidays/special occasions only Alcohol type: beer and hard liquor Patient Tobacco Use Status: Former Tobacco user Cigarette Packs Per Day: 1.5 Years Smoked: 35 Current occupational status: employed Current occupation: [employer] Allergies Allergy/AdvReac Type Severity Reaction Status Date / Time No Known Allergies Allergy Unknown Verified 12/09/23 09:06 Home Medications ?Medication ?Instructions ?Recorded ?Confirmed ?Last Taken ?Type metoprolol succinate 50 mg 1 tab PO DAILY 02/03/22 03/01/22 Unknown History tablet,extended release 24 hr Physical Exam 2 Vital Signs and Narrative: Vital Signs: Last Vital Signs Temp 99.6 F 12/09/23 09:26 Pulse 97 12/09/23 10:20 Resp 24 H 12/09/23 10:20 BP 118/73 12/09/23 09:26 Pulse Ox 95 12/09/23 09:26 O2 Del Method Nasal Cannula 12/09/23 09:26 O2 Flow Rate 3 12/09/23 09:26 BMI result Body Mass Index 42.6 Constitutional: Alert, in no acute distress. Mental Status: Oriented to person, place and time. Eyes: Pupils are equal, round, and reactive to light. Ear, Nose, and Throat: Oropharynx clear, mucous membranes moist. Ears and nose without deformities. Trachea midline. Respiratory: Diffuse expiratory wheezing bilaterally. Some increased work of breathing. Cardiovascular: S1, S2 tachy. No murmurs, rubs, or gallops. Gastrointestinal: Abdomen soft, non-tender, non-distended. Normal bowel sounds. Reducible umbilical hernia noted. Neurologic: Cranial nerves II-XII are grossly intact bilaterally. No focal neurological deficits. Moves all extremities spontaneously. Skin: Warm, dry. Extremities: No edema. Psychiatric: Normal mood and affect. Results Labs 12/09/23 09:35 12/09/23 09:35 Labs: Laboratory Results - last 24 hr 12/09/23 12/09/23 09:35 09:42 MCV 93.7 MCH 29.9 MCHC 31.9 RDW 16.4 H Plt Count 306 MPV 9.4 Immature Gran % (Auto) 0.1 Neut % (Auto) 60.9 Lymph % (Auto) 26.9 [place] % (Auto) 6.6 Eos % (Auto) 4.9 H Baso % (Auto) 0.6 Lymph # (Auto) 1.9 [place] # (Auto) 0.5 Eos # (Auto) 0.3 Baso # (Auto) 0.0 Abs Immat Gran (auto) 0.01 Absolute Neuts (auto) 4.3 Absolute Nucleated RBC 0.000 Nucleated RBC % (auto) 0.0 VBG pH 7.35 VBG pCO2 64 VBG pO2 59 VBG HCO3 36 H VBG O2 Saturation 86.0 VBG Base Excess 7.6 Anion Gap 12 Estim Creat Clear Calc 117.5 Estimated GFR > 60 Random Glucose 155 H Lactic Acid 2.2 H* Calcium 8.9 Magnesium 1.9 Total Bilirubin 0.2 Direct Bilirubin < 0.2 AST 20 ALT 27 Alkaline Phosphatase 107 Troponin I High Sens 3.4 B-Natriuretic Peptide < 10 Total Protein 8.2 H Albumin 3.3 L Influenza Type A (PCR) NEGATIVE Influenza Type B (PCR) NEGATIVE RSV RNA Qual (PCR) NEGATIVE SARS-CoV-2 RNA (RT-PCR) NEGATIVE Assessment and Plan (1) Hypoxic respiratory failure: Status: Acute (2) COPD exacerbation: Status: Acute Plan Pt is a 58-year-old male with a PMH significant for?done COPD, 30+ pack-year smoker currently smoking half+ pack daily, KIRILL pending CPAP, chronic lower leg edema on Lasix, and GERD who presents to the ED with?worsening SOB, ORTEGA, fatigue, and cough occasionally productive of clear sputum x4 days. Pt will be admitted to the hospital for treatment further evaluation acute hypoxic respiratory failure in the setting of COPD exacerbation. Acute hypoxic respiratory failure in the setting of COPD exacerbation Patient with increased SOB, ORTEGA, cough occasionally productive of clear sputum, desatting into upper 80s on RA, continued wheezing upon auscultation despite multiple treatments in ED Patient does not meet sepsis criteria: Tachycardia secondary to albuterol use, no leukocytosis or fever Patient treated with IVF and started on broad-spectrum antibiotics Will empirically cover with azithromycin, 12/09/2023 Will treat with DuoNebs, Solu-Medrol, and Mag sulfate 2g IV x1 dose Continue home maintenance inhalers Titrate supplemental O2 >92, wean as tolerated Monitor respiratory status Lactic acidosis Lactic acid 2.2 at time of presentation Secondary to hypoxia and albuterol use, not severe sepsis Chronic lower leg edema Continue home Lasix Nicotine dependence 30+ pack year history Recently resumed smoking, currently around half a pack NRT Smoking cessation counseled Obesity class III Weight loss encouraged Full Code Attending:?Dr. Christianson DVT Prophylaxis: Lovenox Pt will require a hospitalization of at least two nights for treatment of?acute hypoxic respiratory failure in the setting of COPD exacerbation. Patient will require hospitalization due to continued hypoxia, wheezing and increased work of breathing despite multiple breathing treatments in the ED. patient will be treated IV steroids, supplemental oxygen, breathing treatments, and close monitoring of respiratory status. Quality Stroke Does the patient have a stroke diagnosis?: No VTE Prior VTE?: No VTE Risk Level:: Medical - moderate - high VTE Device Contraindication: Treatment Not Indicated VTE Drug Contraindication: N/A - Med Ordered
[2023-12-09] MEDS: 0.9 % Sodium Chloride 1,000 ML 999 ML IV (11:21)
--- NOTE | 2023-12-09 11:27 | PC.NURSE ---
Resumed care of patient at 1100, pt resting in bed comfortably at this time, remains on 2L NC, exp wheezing noted in all bases. Pt reporting he is comfortable at this time, no other needs at this time. Iv in place, IVF started per MAR
[2023-12-09 11:42] LABS: Reflex Lactate? Lactic Acid Added
[2023-12-09 12:34] LABS: Procalcitonin 0.05 ng/mL
[2023-12-09 12:35] LABS: ~Lactic Acid-LAB USE ONLY 2.9 mmol/L (0.5-2.0)
[2023-12-09] MEDS: Magnesium Sulfate/H2O 2 GM/50 ML PIGGYBACK IV (13:17)
[2023-12-09] MEDS: Enoxaparin Sodium 40 MG/0.4 ML SYRINGE SUBCUT (13:17)
[2023-12-09 13:18] LABS: Cancel Lactic Acid Canceled
[2023-12-09] MEDS: Nicotine 21 MG PATCH.TD24 TRANSDERMA (13:18)
[2023-12-09] MEDS: Azithromycin 500 MG in 0.9 % Sodium Chloride 250 ML 125 MG IV (13:18)
--- NOTE | 2023-12-09 14:08 | PHA.MEDREC ---
Pharmacy Consult ? Medication Reconciliation Pharmacy has completed the medication reconciliation. spoke with patient to confirm medications. He reports using prednisone prn when he has trouble breathing and does not take it every day. He reports he last took it about a week ago, same with furosemide. However I asked how he takes furosemide a second time and he said its once daily again. He reports not using any nicotine replacement therapy at home. Patient brought in Combivent with him.
[2023-12-09] MEDS: Albuterol/Iprat 2.5/0.5MG 3 ML AMPUL.NEB INHALE (15:23)
--- NOTE | 2023-12-09 18:12 | PC.NURSE ---
PT called this RN into room after waking himself up and realizing in his sleep he removed all his monitors and removed his IV. New IV placed, pt placed back on monitor, O2 86% on RA placed on 2L and is 89-94%
[2023-12-09] MEDS: Docusate Sodium 100 MG CAPSULE PO (21:16)
[2023-12-09] MEDS: polyethylene glycoL 3350 17 GM POWD.PACK PO (21:16)
[2023-12-09] MEDS: methylPREDNISolone Sod Succ 40 MG/ML VIAL IVPUSH (21:16)
[2023-12-10] VITALS (10 sets, daily range): BP systolic 131–153; BP diastolic 62–98; PULSE 73–104; RESP 16–28; TEMP 36.3–37; O2SAT 93–97; BMI 42.6
--- NOTE | 2023-12-10 05:45 | MHC.EDTECH ---
O2 check on patient was found to be 89% and patient states breathing feels heavy. RN aware and respiratory paged/called for breathing treatment
[2023-12-10] MEDS: Albuterol/Iprat 2.5/0.5MG 3 ML AMPUL.NEB INHALE ×5 (05:54→20:04)
--- NOTE | 2023-12-10 07:41 | PC.NURSE ---
Resumed care of patient at 0700, he is currently sittng up in bed resting comfortably. Pt ate all his breakfast, breathing comfortably on O2, Lungs with exp wheezing other jimenez clear. Awaiting bed placement at this time
[2023-12-10] MEDS: Furosemide 40 MG TABLET PO (08:50)
[2023-12-10] MEDS: Nicotine 21 MG PATCH.TD24 TRANSDERMA (08:51)
[2023-12-10] MEDS: methylPREDNISolone Sod Succ 40 MG/ML VIAL IVPUSH ×2 (08:52→21:34)
[2023-12-10] MEDS: 0.9 % Sodium Chloride Flush 3 ML SYRINGE IVFLUSH ×2 (08:52→21:35)
[2023-12-10] MEDS: Azithromycin 500 MG in 0.9 % Sodium Chloride 250 ML 125 MG IV (14:17)
[2023-12-10] MEDS: Enoxaparin Sodium 40 MG/0.4 ML SYRINGE SUBCUT (14:17)
--- NOTE | 2023-12-10 16:10 | HO.PM.IMPN ---
Subjective Subjective Date of Service: 12/10/23 Interval History: Feeling a little better still complaining of shortness of breath and cough productive of yellow phlegm, denies allergy symptoms, no fevers, no chills, not on home oxygen, no other acute issues overnight Review of Systems All other system reviewed and negative Physical Exam Vital Signs: Vital Signs: Last Vital Signs Temp 98 F 12/10/23 14:35 Pulse 103 H 12/10/23 15:37 Resp 18 12/10/23 15:37 BP 148/62 H 12/10/23 14:35 Pulse Ox 95 12/10/23 14:35 O2 Del Method Nasal Cannula 12/10/23 14:35 O2 Flow Rate 3 12/10/23 14:35 BMI result Body Mass Index 42.6 Const: Other: General awake alert x3, in no acute distress. Anicteric sclera Neck supple no JVD. CVS regular rate rhythm, Respiratory lungs bilateral expiratory wheeze, no use of accessory muscles Gastrointestinal abdomen soft, nontender, bowel sounds audible, no guarding , no rigidity. Extremities no edema. Neuro non focal Skin no rash Psych appropriate affect Objective Data Active Medications Acetaminophen (Acetaminophen 325 Mg Tablet) 650 mg PO Q6H PRN PRN Reason: Pain, Mild (Pain Scale 1-3) Albuterol Sulfate (Albuterol Sulfate 90 Mcg 8 Gm Inhaler) 1 puff INHALE Q4H PRN PRN Reason: shortness of breath or wheezing Albuterol/Ipratropium (Albuterol/Iprat 2.5/0.5mg 3 Ml Ampul.Neb) 3 ml INHALE RQ4H WHILE AWAKE [facility] Last Admin: 12/10/23 15:34 Dose: 3 ml Documented By: ARLENE Docusate Sodium (Docusate Sodium 100 Mg Capsule) 100 mg PO BEDTIME [facility] Last Admin: 12/09/23 21:16 Dose: 100 mg Documented By: SAJAN Enoxaparin Sodium (Enoxaparin Sodium 40 Mg/0.4 Ml Syringe) 40 mg SUBCUT Q24H [facility] Last Admin: 12/10/23 14:17 Dose: 40 mg Documented By: ROBINSON Furosemide (Furosemide 40 Mg Tablet) 40 mg PO DAILY [facility]; Protocol Last Admin: 12/10/23 08:50 Dose: 40 mg Documented By: JORGE Azithromycin 500 mg/ Sodium (Chloride) 250 mls @ 125 mls/hr IV Q24H [facility] Last Admin: 12/10/23 14:17 Dose: 125 mls/hr Documented By: ROBINSON Lactulose (Lactulose 20 Gm/30 Ml Solution) 10 gm PO ONCE PRN PRN Reason: Constipation Melatonin (Melatonin 3 Mg Tablet) 6 mg PO BEDTIME PRN PRN Reason: Insomnia Methylprednisolone Sodium Succinate (Methylprednisolone Sod Succ 40 Mg/Ml Vial) 40 mg IVPUSH Q12H [facility] Last Admin: 12/10/23 08:52 Dose: 40 mg Documented By: JORGE Nicotine (Nicotine 21 Mg Patch.Td24) 21 mg TRANSDERMA DAILY [facility] Last Admin: 12/10/23 08:51 Dose: 21 mg Documented By: JORGE Ondansetron HCl (Ondansetron Hcl 4 Mg/2 Ml Vial) 4 mg IVPUSH Q8H PRN PRN Reason: Nausea and Vomiting Polyethylene Glycol (Polyethylene Glycol 3350 17 Gm Powd.Pack) 17 gm PO BEDTIME [facility] Last Admin: 12/09/23 21:16 Dose: 17 gm Documented By: SAJAN Sodium Chloride (0.9 % Sodium Chloride Flush 3 Ml Syringe) 3 ml IVFLUSH QSHIFT [facility] Last Admin: 12/10/23 08:52 Dose: 3 ml Documented By: JORGE Labs 12/09/23 09:35 12/09/23 09:35 Microbiology Microbiology Results: Microbiology 12/09/23 09:36 Blood Culture - Preliminary Blood - Venous No growth after 24 hours. 12/09/23 09:35 Blood Culture - Preliminary Blood - Venous No growth after 24 hours. Assessment and Plan (1) Acute exacerbation of chronic obstructive airways disease: Status: Acute Plan 58-year-old male with a PMH significant for?done COPD, 30+ pack-year smoker currently smoking half+ pack daily, KIRILL pending CPAP, chronic lower leg edema on Lasix, and GERD who presents to the ED with?worsening SOB, ORTEGA, fatigue, and cough occasionally productive of clear sputum x4 days. Pt will be admitted to the hospital for treatment further evaluation acute hypoxic respiratory failure in the setting of COPD exacerbation. Acute hypoxic respiratory failure in the setting of acute COPD exacerbation Persistent shortness of breath but improved since admission, chest x-ray showed no infiltrate will continue IV azithromycin, 12/09/2023, DuoNebs scheduled and as needed, iv Solu-Medrol Continue home maintenance inhalers Titrate supplemental O2 >92, wean as tolerated Acute Lactic acidosis present on admission likely due to hypoxia now be to use and not due to severe sepsis Chronic lower leg edema Continue home Lasix Nicotine dependence counseling done continue nicotine patch Obesity class III Weight loss encouraged Full Code DVT Prophylaxis: Lovenox Pt will require continued inpatient hospitalization for treatment of acute hypoxic respiratory failure and COPD exacerbation requiring IV steroids, oxygen and frequent updraft treatment and for close monitoring of respiratory status. Quality Stroke Does the patient have a stroke diagnosis?: No VTE Prior VTE?: No VTE Risk Level:: Medical - moderate - high VTE Device Contraindication: Treatment Not Indicated VTE Drug Contraindication: N/A - Med Ordered
--- NOTE | 2023-12-10 16:59 | PC.NURSE ---
Report submitted, message sent via [email or web address]. Pt got up to use the bathroom and accidentally pulled his iv out.
[2023-12-10] MEDS: Docusate Sodium 100 MG CAPSULE PO (21:34)
[2023-12-10] MEDS: polyethylene glycoL 3350 17 GM POWD.PACK PO (21:34)
[2023-12-11] VITALS (12 sets, daily range): BP systolic 125–137; BP diastolic 65–83; PULSE 80–107; RESP 16–20; TEMP 36.3–36.8; O2SAT 90–96
[2023-12-11] MEDS: Albuterol/Iprat 2.5/0.5MG 3 ML AMPUL.NEB INHALE ×3 (07:18→19:46)
[2023-12-11] MEDS: Furosemide 40 MG TABLET PO (08:55)
[2023-12-11] MEDS: Nicotine 21 MG PATCH.TD24 TRANSDERMA (08:55)
[2023-12-11] MEDS: 0.9 % Sodium Chloride Flush 3 ML SYRINGE IVFLUSH ×3 (08:55→20:13)
[2023-12-11] MEDS: methylPREDNISolone Sod Succ 40 MG/ML VIAL IVPUSH ×3 (08:55→20:12)
--- NOTE | 2023-12-11 11:55 | HO.PM.IMPN ---
Subjective Subjective Date of Service: 12/11/23 Interval History: Slept well on CPAP, complaining of shortness of breath and cough, better since admission, denies fever, no chills, tolerating diet no nausea, no vomiting, no abdominal pain, waiting for CPAP machine to be delivered sometimes this week. Review of Systems All other system reviewed and negative Physical Exam Vital Signs: Vital Signs: Last Vital Signs Temp 98.2 F 12/11/23 07:34 Pulse 103 H 12/11/23 07:34 Resp 18 12/11/23 07:34 BP 134/83 12/11/23 08:55 Pulse Ox 95 12/11/23 11:32 O2 Del Method Nasal Cannula 12/11/23 11:32 O2 Flow Rate 2 12/11/23 11:32 BMI result Body Mass Index 42.6 Const: Other: General awake alert x3, in no acute distress. Anicteric sclera Neck supple no JVD. CVS regular rate rhythm, Respiratory lungs bilateral expiratory wheeze, no use of accessory muscles. Gastrointestinal abdomen soft, non tender, bowel sounds audible, no guarding , no rigidity. Extremities no pitting edema. Neuro non focal Skin no rash Psych appropriate affect Objective Data Active Medications Acetaminophen (Acetaminophen 325 Mg Tablet) 650 mg PO Q6H PRN PRN Reason: Pain, Mild (Pain Scale 1-3) Albuterol Sulfate (Albuterol Sulfate 90 Mcg 8 Gm Inhaler) 1 puff INHALE Q4H PRN PRN Reason: shortness of breath or wheezing Albuterol/Ipratropium (Albuterol/Iprat 2.5/0.5mg 3 Ml Ampul.Neb) 3 ml INHALE RQ4H WHILE AWAKE [facility] Last Admin: 12/11/23 07:18 Dose: 3 ml Documented By: ARLENE Docusate Sodium (Docusate Sodium 100 Mg Capsule) 100 mg PO BEDTIME [facility] Last Admin: 12/10/23 21:34 Dose: 100 mg Documented By: YAKOV Enoxaparin Sodium (Enoxaparin Sodium 40 Mg/0.4 Ml Syringe) 40 mg SUBCUT Q24H [facility] Last Admin: 12/10/23 14:17 Dose: 40 mg Documented By: ROBINSON Furosemide (Furosemide 40 Mg Tablet) 40 mg PO DAILY [facility]; Protocol Last Admin: 05/19/24 08:55 Dose: 40 mg Documented By: ROCAEL Azithromycin 500 mg/ Sodium (Chloride) 250 mls @ 125 mls/hr IV Q24H [facility] Last Infusion: 12/10/23 17:00 Dose: Infused Documented By: ROBINSON Lactulose (Lactulose 20 Gm/30 Ml Solution) 10 gm PO ONCE PRN PRN Reason: Constipation Melatonin (Melatonin 3 Mg Tablet) 6 mg PO BEDTIME PRN PRN Reason: Insomnia Methylprednisolone Sodium Succinate (Methylprednisolone Sod Succ 40 Mg/Ml Vial) 40 mg IVPUSH Q12H [facility] Last Admin: 12/11/23 08:55 Dose: 40 mg Documented By: ROCAEL Nicotine (Nicotine 21 Mg Patch.Td24) 21 mg TRANSDERMA DAILY [facility] Last Admin: 12/11/23 08:55 Dose: 21 mg Documented By: ROCAEL Ondansetron HCl (Ondansetron Hcl 4 Mg/2 Ml Vial) 4 mg IVPUSH Q8H PRN PRN Reason: Nausea and Vomiting Polyethylene Glycol (Polyethylene Glycol 3350 17 Gm Powd.Pack) 17 gm PO BEDTIME [facility] Last Admin: 12/10/23 21:34 Dose: 17 gm Documented By: LYSZ Sodium Chloride (0.9 % Sodium Chloride Flush 3 Ml Syringe) 3 ml IVFLUSH QSHIFT [facility] Last Admin: 12/11/23 08:55 Dose: 3 ml Documented By: COTEMA Labs 12/09/23 09:35 12/09/23 09:35 Microbiology Microbiology Results: Microbiology 12/09/23 09:36 Blood Culture - Preliminary Blood - Venous No growth after 48 hours. 12/09/23 09:35 Blood Culture - Preliminary Blood - Venous No growth after 48 hours. Assessment and Plan (1) Acute exacerbation of chronic obstructive airways disease: Status: Acute Plan 58-year-old male with a PMH significant for?done COPD, 30+ pack-year smoker currently smoking half+ pack daily, KIRILL pending CPAP, chronic lower leg edema on Lasix, and GERD who presents to the ED with?worsening SOB, ORTEGA, fatigue, and cough occasionally productive of clear sputum x4 days. Pt will be admitted to the hospital for treatment further evaluation acute hypoxic respiratory failure in the setting of COPD exacerbation. Acute hypoxic respiratory failure in the setting of acute COPD exacerbation Persistent shortness of breath but improved since admission, chest x-ray showed no infiltrate will continue IV azithromycin, 12/09/2023, DuoNebs scheduled and as needed, iv Solu-Medrol adjust dose to 40 t.i.d. Continue home maintenance inhalers Titrate supplemental O2 >92, wean as tolerated, not on home oxygen Obstructive sleep apnea being followed by loom starter waiting for CPAP, continue CPAP in-house Acute Lactic acidosis present on admission likely due to hypoxia now be to use and not due to severe sepsis Chronic lower leg edema Continue home Lasix 40 mg daily Nicotine dependence counseling done continue nicotine patch. Obesity class III Weight loss encouraged Full Code DVT Prophylaxis: Lovenox Pt will require continued inpatient hospitalization for treatment of acute hypoxic respiratory failure and COPD exacerbation requiring IV steroids, oxygen and frequent updraft treatment and for close monitoring of respiratory status. Quality Stroke Does the patient have a stroke diagnosis?: No VTE Prior VTE?: No VTE Risk Level:: Medical - moderate - high VTE Device Contraindication: Treatment Not Indicated VTE Drug Contraindication: N/A - Med Ordered
[2023-12-11] MEDS: Enoxaparin Sodium 40 MG/0.4 ML SYRINGE SUBCUT (12:40)
[2023-12-11] MEDS: Azithromycin 500 MG in 0.9 % Sodium Chloride 250 ML 125 MG IV (12:41)
--- NOTE | 2023-12-11 16:19 | MHC.CM.PN ---
CM MET WITH PT AND AT BEDSIDE PT LIVES WITH HIS AND CHILDREN AND IS INDEPENDENT WITH CARE HE SAYS HE WAS SUPPOSED TO BE GETTING A CPAP ORDERED BY DR PORTILLO, BUT HE IS STILL WAITING PT BELIEVES HE HAS A HCP ON FILE, IF NOT, HE WILL COMPLETE ONE PCP: DIANE KURTZ DCP: HOME NO SERVICES VIA PRIVATE TRANSPORT
[2023-12-11] MEDS: Docusate Sodium 100 MG CAPSULE PO (20:11)
[2023-12-11] MEDS: polyethylene glycoL 3350 17 GM POWD.PACK PO (20:12)
[2023-12-12] VITALS (7 sets, daily range): BP systolic 145–167; BP diastolic 77–94; PULSE 94–110; RESP 18–20; TEMP 36–37; O2SAT 83–94
[2023-12-12] MEDS: methylPREDNISolone Sod Succ 40 MG/ML VIAL IVPUSH (05:11)
[2023-12-12] MEDS: Albuterol/Iprat 2.5/0.5MG 3 ML AMPUL.NEB INHALE ×2 (07:42→11:57)
[2023-12-12] MEDS: Furosemide 40 MG TABLET PO (09:05)
[2023-12-12] MEDS: 0.9 % Sodium Chloride Flush 3 ML SYRINGE IVFLUSH (09:05)
[2023-12-12] MEDS: Nicotine 21 MG PATCH.TD24 TRANSDERMA (09:05)
[2023-12-12] MEDS: Famotidine 20 MG TABLET PO (10:55)
[2023-12-12] MEDS: predniSONE 20 MG TABLET 40 MG PO (10:55)
[2023-12-12] MEDS: Enoxaparin Sodium 40 MG/0.4 ML SYRINGE SUBCUT (12:09)
[2023-12-12] MEDS: Azithromycin 500 MG TABLET PO (12:09)
--- NOTE | 2023-12-12 12:12 | PM.DS ---
DS: Providers Provider Date of Service: 12/12/23 Date of admission: 12/09/23 12:08 Primary care physician: Leonard Boston MD DS: Diagnosis Discharge Diagnosis (1) Acute exacerbation of chronic obstructive airways disease: Status: Acute DS: Summary Hospital Course Hospital Course: History of presenting illness: Date of Service: 12/09/23 Attending physician on admission: Zaheer Christianson Chief Complaint: SOB Pt is a 58-year-old male with a PMH significant for?done COPD, 30+ pack-year smoker currently smoking half+ pack daily, KIRILL pending CPAP, chronic lower leg edema on Lasix, and GERD who presents to the ED with?worsening SOB, ORTEGA, fatigue, and cough occasionally productive of clear sputum x4 days. Reports severe short of breath and difficulty breathing with walking just to the bathroom. Not on home O2. Also endorses chest tightness with cough and when feeling anxious. States he has been using his home inhalers with the effect. Has not been eating or drinking much the past few days. Reports some subjective chills, but no measured fever. Denies nausea, vomiting, abdominal pain. In the ED pt with elevated temperature 99.6 degrees, tachycardia 102, tachypnea of 26, and hypoxic at 89% on RA. Labs were significant for lactic acid 2.2, otherwise grossly unremarkable and baseline for patient. No leukocytosis. Stable H&H. No thrombopenia. No significant electrolyte abnormalities. Bicarb 33. Renal and hepatic function baseline. BNP negative. Troponin WNL at 3.4. Tested negative for flu, RSV, COVID. CXR showed no acute pulmonary disease compared to prior. EKG demonstrated normal sinus rhythm with no significant evidence of ST elevations or depressions. Pt was treated with DuoNebs, albuterol IVF, Solu-Medrol and ceftriaxone. Pt will be admitted to the hospital for treatment further evaluation acute hypoxic respiratory failure in the setting of COPD exacerbation. Hospital course: 58-year-old male with a PMH significant for?done COPD, 30+ pack-year smoker currently smoking half+ pack daily, KIRILL pending CPAP, chronic lower leg edema on Lasix, and GERD admitted to medical floor due to?worsening SOB, ORTEGA, fatigue, and cough occasionally productive of clear sputum x4 days, and diagnosed with acute hypoxic respiratory failure in the setting of COPD exacerbation, chest x-ray showed no acute infiltrate, treated with IV steroids, DuoNebs, and IV azithromycin patient responded well to above treatment, but noted to have hypoxia with activity therefore being discharged home on 2 L of oxygen with activity, patient is waiting for CPAP machine and is being followed closely by patient services coordinator he has been strongly advice to follow low-carbohydrate diet and lose weight in regard to smoking use being discharged with nicotine patch, he is recommended to continue all home inhalers, he is being discharged home on short course of prednisone and azithromycin. Obstructive sleep apnea being followed by patient services coordinator waiting for CPAP. Acute Lactic acidosis present on admission likely due to hypoxia and not due to severe sepsis Chronic lower leg edema Continue home Lasix 40 mg daily Obesity class III Weight loss encouraged Time Attestation Discharge Coordination Time (in mins): 40 Quality: Safe Use of Opioids Does Pt have an Active Cancer Diagnosis on the Problem List?: No Quality: Stroke Does the patient have a stroke diagnosis?: No Physical Exam Vital Signs: Vital Signs: Last Vital Signs Temp 98.6 F 12/12/23 07:26 Pulse 94 12/12/23 11:57 Resp 20 12/12/23 11:57 BP 167/77 H 12/12/23 09:05 Pulse Ox 93 12/12/23 07:21 O2 Del Method Nasal Cannula 12/12/23 07:21 O2 Flow Rate 2 12/12/23 07:21 BMI result Body Mass Index 42.6 Const: Other: General awake alert x3, in no acute distress, talking in full sentences. Anicteric sclera Neck supple no JVD. CVS regular rate rhythm, Respiratory lungs is scattered expiratory wheeze, no use of accessory muscles. Gastrointestinal abdomen soft, non tender, bowel sounds audible, no guarding , no rigidity. Extremities no pitting edema. Neuro non focal Skin no rash Psych appropriate affect DS: Data Data Completed and Pending Labs on day of discharge: Preliminary micro results at discharge 12/09/23 09:36 Blood Culture - Preliminary Blood - Venous No growth after 48 hours. 12/09/23 09:35 Blood Culture - Preliminary Blood - Venous No growth after 48 hours. Discharge Plan Discharge Anticipated Discharge Date/Time: 12/12/23 11:45 Patient Disposition: Home, Self-Care Discharge Diagnosis: Acute hypoxic respiratory failure due to COPD exacerbation Referrals: Leonard Boston MD [Primary Care Provider] - 1 Week Discharge Medications: New nicotine 21 mg/24 hr Patch 24 Hour 21 mg transdermal DAILY Qty: 28 0RF famotidine 20 mg Tablet 20 mg PO DAILY Qty: 30 0RF azithromycin 500 mg Tablet 500 mg PO Q24H Qty: 2 0RF prednisone 10 mg tablet 10 mg PO DIRECTED Qty: 30 0RF Rx Instructions: see taper instructions Continued Anoro Ellipta 62.5-25 mcg/actuation blister with device 1 inh inhalation DAILY 30 Days Qty: 1 6RF ipratropium-albuterol 0.5 mg-3 mg(2.5 mg base)/3 mL solution for nebulization 3 ml inhalation Q4-6H PRN (Reason: wheezing) 30 Days Qty: 180 2RF prednisone 20 mg tablet 20 mg PO DAILY PRN (Reason: shortness or breath/flare) acetaminophen 500 mg Tablet 1,000 mg PO DAILY PRN (Reason: Pain) polyethylene glycol 3350 [Miralax] 17 gram/dose Powder 17 g PO BEDTIME docusate sodium [Colace] 100 mg capsule 100 mg PO BEDTIME albuterol sulfate 90 mcg/actuation HFA aerosol inhaler 1 inh inhalation Q4-6H PRN (Reason: shortness of breath or wheezing) furosemide 40 mg tablet 40 mg PO DAILY 30 Days Qty: 30 6RF Combivent Respimat 20-100 mcg/actuation mist 1 puff inhalation Q6H 30 Days Qty: 4 6RF Discontinued ibuprofen 200 mg Tablet 400 mg PO Q8H PRN (Reason: Pain) Discharge Orders: Discharge Order (Routine); Ordered 12/12/23 Ordered By: Deanna Bravo Diet: Advance to usual diet Activity on Discharge: As tolerated Stand Alone Forms: Patient Portal Discharge page Print Language: Thai Care Plan Goals: COPD exacerbation improved continue updraft treatment 4 times a day and prednisone as directed Strongly recommend to abstain from smoking Recommend 2 L of oxygen with ambulation Recommend CPAP at night as per Pulmonary recommendation Health Concerns: Obesity recommend low-calorie diet Tobacco use disorder. Plan of Treatment: Outpatient follow-up with primary care physician and pulmonology call for appointment Assessment: As above
== END 2023-12-12 12:29 | disposition home or self-care (01) | DRG 191 ==
LOC: HO.ED 10:00 → HO.EDOVER 12:22 → HO.S3 12-10 16:02
PROVIDERS: Admitting Provider Student in an Organized Health Care Education/Training Program; Emergency Provider Emergency Medicine; PCP Internal Medicine Medical Oncology; Visit Provider Hospitalist
DX: J44.1 Chronic obstructive pulmonary disease with (acute) exacerbation (principal); E87.21 Acute metabolic acidosis; Z68.41 Body mass index [BMI] 40.0-44.9, adult; G47.33 Obstructive sleep apnea (adult) (pediatric); F17.210 Nicotine dependence, cigarettes, uncomplicated; E66.01 Morbid (severe) obesity due to excess calories; Z20.822 Contact with and (suspected) exposure to COVID-19; Z71.6 Tobacco abuse counseling; Z79.899 Other long term (current) drug therapy
CPT/HCPCS: 0241U; 36415; 71045; 80048; 80076; 82803; 83605; 83735; 83880; 84145; 84484; 85025; 87040; 93005; 94640; 94660; 99285; J0456; J0696; J1650; J2919; J3475

== ENCOUNTER → 2023-12-09 09:16 | Outpatient (BNV) | payer OTHER, SELFPAY | PROVIDERS: Admitting Provider Student in an Organized Health Care Education/Training Program; Emergency Provider Emergency Medicine; PCP Internal Medicine Medical Oncology; Visit Provider Internal Medicine Cardiovascular Disease | DX: R06.00 Dyspnea, unspecified (principal) | CPT/HCPCS: 93010 ==

== ENCOUNTER → 2023-12-09 12:08 | Outpatient (BNV) | payer OTHER, SELFPAY | PROVIDERS: Admitting Provider Student in an Organized Health Care Education/Training Program; Emergency Provider Emergency Medicine; PCP Internal Medicine Medical Oncology; Visit Provider Student in an Organized Health Care Education/Training Program | DX: J96.91 Respiratory failure, unspecified with hypoxia (principal); J44.1 Chronic obstructive pulmonary disease with (acute) exacerbation | CPT/HCPCS: 99223; 99233; 99239 ==

== ENCOUNTER 2024-01-22 03:43 | Inpatient (IN) | payer OTHER, SELFPAY ==
[2024-01-22] VITALS (25 sets, daily range): BP systolic 124–176; BP diastolic 78–97; PULSE 78–116; RESP 14–30; TEMP 36.1–37.3; O2SAT 75–96; BMI 40.7; BMI 45.0
--- NOTE | ~2024-01-22 | XR_ITS ---
EXAMINATION: XR CHEST CLINICAL INFORMATION: Chest tightness COMPARISON: 12/09/2023 TECHNIQUE: Frontal view of the chest was obtained. FINDINGS: EKG leads overlie the chest. Bronchial wall thickening is evident in a perihilar distribution. No consolidation, pneumothorax, or pleural effusion. Chronic silhouette is normal in size with areas of pleural parenchymal scarring at the right middle lobe and lingula as well as a prominent epicardial fat pad, better seen on prior CT. No acute osseous findings. XR/XR chest 1V IMPRESSION: Bronchial wall thickening can be seen with a small airways process such as asthma or atypical/viral infection.
--- NOTE | 2024-01-22 04:04 | ECG_ITS ---
Test Reason : SOB Blood Pressure : / mmHG Vent. Rate : 110 BPM Atrial Rate : 110 BPM P-R Int : 146 ms QRS Dur : 078 ms QT Int : 362 ms P-R-T Axes : 065 069 052 degrees QTc Int : 489 ms Sinus tachycardia Otherwise normal ECG When compared with ECG of 09-DEC-2023 09:16, No significant change was found Referred By: Patrcie Mcdermott Electronically Signed By:JYOTHI ORTIZ MD
[2024-01-22 04:07] LABS: MANUAL DIFF FLAG NO
[2024-01-22] MEDS: Albuterol Sulfate 7.5 MG, Albuterol Sulfate (0.083%) 2.5 MG 10 MG INHALE (04:07)
[2024-01-22 04:09] LABS: Basophils Percent Auto 0.4 % (0-2); Eosinophils Absolute Auto 0.4 X10*3/uL (0.0-0.4); Eosinophils Percent Auto 3.9 % (0-4); Hematocrit 48.7 % (42.0-52.0); Hemoglobin 15.2 g/dl (14.0-18.0); Imm Gran Abs Auto 0.04 X10*3/uL (0.00-0.03); Imm Gran Pct Auto 0.4 % (0.0-0.4); Lymphocytes Absolute Auto 2.4 X10*3/uL (1.2-4.9); Lymphocytes Percent Auto 23.6 % (20-40); Mean Corpuscular HGB Conc 31.2 g/dl (31.0-36.0); Mean Corpuscular Hemoglobin 29.2 pg (27.0-33.0); Mean Corpuscular Volume 93.7 fL (80.0-98.0); Mean Platelet Volume 9.4 fL (9.4-12.4); Monocytes Absolute Auto 0.6 X10*3/uL (0.1-1.2); Monocytes Percent Auto 6.2 % (2-11); Neutrophils Absolute Auto 6.8 x10*3/uL (2.0-8.3); Neutrophils Percent Auto 65.5 % (45-73); Platelet Count 297 X10*3/uL (160-400); Red Cell Distribution Width 16.6 % (11.0-16.0); White Blood Count 10.3 X10*3/uL (4.8-10.8)
[2024-01-22 04:12] LABS: VBG Base Excess 6.4 mmol/L; VBG HCO3 35 mmol/L (22-26); VBG pCO2 68 mmHg; VBG pH 7.32 (7.32-7.43); VBG pO2 49 mmHg
[2024-01-22 04:12] LABS: Venous Blood Gas Refer to POC result
--- NOTE | 2024-01-22 04:14 | PC.NURSE ---
Patient brought to ED 5 from triage for low shortness of breath, O2 Sat 76% RA at triage. Patient has been suffering from difficulty breathing that started yesterday. He was sent home early from work today at [employer] due to his oxygen was in the 80s , patient tried using albuterol nebulizer treatment at home without relief. Patient placed on supplemental O2 at 6 LPM NC with improvement in O2 Sat, 93-94%, labs drawn and sent to lab, 20 G IV line established in L AC. RT at bedside assessing patient. Patient has Hx COPD, emphysema, current smoker. Call heath placed within patient's reach, plan of care ongoing.
[2024-01-22 04:20] LABS: Lactic Acid 1.6 mmol/L (0.5-2.0)
[2024-01-22 04:25] LABS: Alanine Aminotransferase 25 U/L (0-40); Albumin Level 3.7 g/dL (3.5-5.0); Alkaline Phosphatase 116 U/L (39-117); Anion Gap 13 (12-20); Aspartate Amino Transferase 19 U/L (5-37); Bilirubin Total 0.3 mg/dL (0.0-1.0); Blood Urea Nitrogen 7 mg/dL (9-16); Calcium 9.9 mg/dL (8.4-10.2); Carbon Dioxide 31 mmol/L (22-29); Chloride 102 mmol/L (96-108); Creatinine Clr Calc Pharmacy 132.3; Estimated Glomerular Filt Rate > 60; Glucose Random 126 mg/dL (60-115); Potassium 4.3 mmol/L (3.3-5.1); Sodium 142 mmol/L (135-145); Total Protein 7.9 g/dL (6.5-8.0)
[2024-01-22 04:30] LABS: Troponin-I High Sensitivity 3.3 ng/L (<3.5-35.0)
--- NOTE | 2024-01-22 04:39 | ED.SOB ---
HPI - SOB/Dyspnea General Chief Complaint: Dyspnea Stated Complaint: diff breathing Time Seen by Provider: 01/22/24 03:59 Source: patient and EMS Mode of arrival: EMS Limitations: no limitations History of Present Illness ED Provider: shira MANCILLA Narrative: Patient is 58 years old with 30+ pack year smoker still smokes with pulmonary emphysema KIRILL, hypertension comes here from work due to increased shortness of breath saturating in 80s patient has been feeling increased shortness of breath for last 2 - 3 days got worse today at work does have with dry cough no fever no chills patient does have sleep apnea unable to get the machine fall sleep all the time while sleeping saturate to 70s Related Data Home Medications ?Medication ?Instructions ?Recorded ?Confirmed acetaminophen 500 mg tablet 1,000 mg PO DAILY PRN Pain 12/09/23 12/09/23 albuterol sulfate 90 mcg/actuation 1 inh inhalation Q4-6H PRN 12/09/23 12/09/23 aerosol inhaler shortness of breath or wheezing docusate sodium 100 mg capsule 100 mg PO BEDTIME 12/09/23 12/09/23 (Colace) polyethylene glycol 3350 17 17 g PO BEDTIME 12/09/23 12/09/23 gram/dose oral powder (Miralax) prednisone 20 mg tablet 20 mg PO DAILY PRN shortness or 12/09/23 12/09/23 breath/flare Previous Rx's ?Medication ?Instructions ?Recorded furosemide 40 mg tablet 40 mg PO DAILY 30 days #30 tabs 11/01/23 ipratropium 20 mcg-albuterol 100 1 puff inhalation Q6H 30 days #4 11/01/23 mcg/actuation mist for inhalation grams (Combivent Respimat) ipratropium 0.5 mg-albuterol 3 mg 3 ml inhalation Q4-6H PRN wheezing 11/08/23 (2.5 mg base)/3 mL nebulization 30 days #180 mL soln azithromycin 500 mg tablet 500 mg PO Q24H #2 tabs 12/12/23 famotidine 20 mg tablet 20 mg PO DAILY #30 tabs 12/12/23 nicotine 21 mg/24 hr daily 21 mg transdermal DAILY #28 ea 12/12/23 transdermal patch prednisone 10 mg tablet 10 mg PO DIRECTED #30 tabs 12/12/23 umeclidinium 62.5 mcg-vilanterol 1 inh inhalation DAILY 30 days #1 01/04/24 25 mcg/actuation powdr for ea inhalation (Anoro Ellipta) Allergies Allergy/AdvReac Type Severity Reaction Status Date / Time No Known Allergies Allergy Unknown Verified 01/22/24 03:56 Review of Systems Review of Systems: Yes all other systems are reviewed and are negative [facility] Past Medical History Medical History Smoker COPD (chronic obstructive pulmonary disease) HTN (hypertension) Acid reflux Diverticulitis Surgical History Hx of colonoscopy History of colostomy reversal H/O colostomy Family History Family History Mother Diabetes Arthritis Sleep apnea COPD (chronic obstructive pulmonary disease) Father Stomach cancer Diabetes Arthritis Sister Arthritis Social History Social History Household Members: Spouse Housing: Apartment Do you presently have visiting nurse or other home services: No Alcohol intake: current Alcohol intake frequency: holidays/special occasions only Alcohol type: beer Patient Tobacco Use Status: Current everyday Tobacco user Tobacco use type: Cigarette Cigarette Packs Per Day: 1 Cigarettes Per Day: 20.0 Years Smoked: 35 Smoked in Last 30 Days: Yes e-Cigarette/Vaping Use: Never Used Second Hand Smoke Exposure: Yes Use of substances other than those prescribed or required for medical reasons: No Advance Directives: No Advance Directives Information Provided: No service: No Current occupational status: employed Current occupation: [employer] Physical Exam Vital Signs: Vital Signs: Last Vital Signs Temp 99.1 F 01/22/24 07:06 Pulse 87 01/22/24 07:06 Resp 18 01/22/24 07:06 BP 143/82 H 01/22/24 07:06 Pulse Ox 94 01/22/24 07:06 O2 Del Method BiPAP 01/22/24 07:06 O2 Flow Rate 4 01/22/24 03:58 FiO2 30 01/22/24 07:06 BMI result Body Mass Index 40.7 Appearance: Alert. Oriented X3. Obese in moderate respiratory distress falling sleep often Eyes: PERRLA, ENT: Pharynx normal. Oral Mucosa moist Neck: Normal inspection. Neck supple. CVS: Normal heart rate and rhythm. Pulses normal. Respiratory: No respiratory distress. Equal air entry bilateral, no wheezing/rales/rhonchi decreased air entry bilateral Abdomen: Soft and nontender. Bowel sounds are present, no mass palpable, no CVA tenderness Skin: Skin warm and dry. Normal skin color. Normal skin turgor. Extremities: No lower extremity edema. No calf tenderness Neuro: Oriented X 3. No motor deficit. Medications Administered Discontinued Medications Generic Name Dose Route Start Last Admin Trade Name Freq PRN Reason Stop Dose Admin Albuterol Sulfate 7.5 mg/ 10 mg 01/22/24 04:00 01/22/24 04:07 Albuterol Sulfate 2.5 mg INHALE 01/22/24 04:01 10 mg ONCE ONE Administration Magnesium Sulfate 2 gm in 50 mls @ 150 mls/hr 01/22/24 04:47 01/22/24 05:39 Magnesium Sulfate/H2o IV 01/22/24 05:06 Infused ONCE ONE Infusion Ceftriaxone Sodium 1 gm/ 50 mls @ 100 mls/hr 01/22/24 04:50 01/22/24 06:08 Sodium Chloride IV 01/22/24 05:19 Infused ONCE ONE Infusion Methylprednisolone Sodium Succinate 125 mg 01/22/24 04:47 01/22/24 05:17 Methylprednisolone Sod Succ 125 Mg/2 Ml Vial IVPUSH 01/22/24 04:48 125 mg ONCE ONE Administration Medical Decision Making Medical Decision Making [facility] Narrative: Patient with KIRILL/COPD/asthma overlap syndrome of obese unable to get CPAP patient is placed on CPAP in the ER had only tidal volume of 100 went fall asleep changed to BiPAP 15/5 saturating 99% on 30% FiO2 patient used to be on oxygen in the past but PCP discontinued oxygen in process of CPAP now no signs of acute infection will recheck arterial gases plan to admit to the floor/ICU signed out Dr. Mendenhall for further disposition Differential Diagnosis Differential Diagnoses: The differential diagnosis associated with the presentation includes COPD/sleep apnea/hypoxic/hypercapnic failure Admission/Observation Consideration of admission/observation: Escalation of care including admission/observation considered Consult Healthcare Provider Management of the patient was discussed with: Hospitalist Lab Data [facility] Lab Attestation statement: I reviewed the patient's lab results. 01/22/24 04:02 01/22/24 04:02 Labs: Lab Results 01/22/24 01/22/24 01/22/24 Range/Units 04:02 04:05 04:11 WBC 10.3 (4.8-10.8) X10*3/uL RBC 5.20 (4.60-5.80) X10*6/uL Hgb 15.2 (14.0-18.0) g/dl Hct 48.7 (42.0-52.0) % MCV 93.7 (80.0-98.0) fL MCH 29.2 (27.0-33.0) pg MCHC 31.2 (31.0-36.0) g/dl RDW 16.6 H (11.0-16.0) % Plt Count 297 (160-400) X10*3/uL MPV 9.4 (9.4-12.4) fL Immature Gran % (Auto) 0.4 (0.0-0.4) % Neut % (Auto) 65.5 (45-73) % Lymph % (Auto) 23.6 (20-40) % [place] % (Auto) 6.2 (2-11) % Eos % (Auto) 3.9 (0-4) % Baso % (Auto) 0.4 (0-2) % Lymph # (Auto) 2.4 (1.2-4.9) X10*3/uL [place] # (Auto) 0.6 (0.1-1.2) X10*3/uL Eos # (Auto) 0.4 (0.0-0.4) X10*3/uL Baso # (Auto) 0.0 (0.0-0.2) X10*3/uL Abs Immat Gran (auto) 0.04 H (0.00-0.03) X10*3/uL Absolute Neuts (auto) 6.8 (2.0-8.3) x10*3/uL Absolute Nucleated RBC 0.000 (0.0-0.012) X10*3/uL Nucleated RBC % (auto) 0.0 (0.0-0.2) /100WBC VBG pH 7.32 (7.32-7.43) VBG pCO2 68 mmHg VBG pO2 49 mmHg VBG HCO3 35 H (22-26) mmol/L VBG O2 Saturation 72.0 % VBG Base Excess 6.4 mmol/L Sodium 142 (135-145) mmol/L Potassium 4.3 (3.3-5.1) mmol/L Chloride 102 (96-108) mmol/L Carbon Dioxide 31 H (22-29) mmol/L Anion Gap 13 (12-20) BUN 7 L (9-16) mg/dL Creatinine 0.89 (0.5-1.4) mg/dL Estim Creat Clear Calc 132.3 Estimated GFR > 60 Random Glucose 126 H (60-115) mg/dL Lactic Acid 1.6 (0.5-2.0) mmol/L Calcium 9.9 D (8.4-10.2) mg/dL Total Bilirubin 0.3 (0.0-1.0) mg/dL AST 19 (5-37) U/L ALT 25 (0-40) U/L Alkaline Phosphatase 116 (39-117) U/L Troponin I High Sens 3.3 (<3.5-35.0) ng/L Total Protein 7.9 (6.5-8.0) g/dL Albumin 3.7 (3.5-5.0) g/dL Influenza Type A (PCR) NEGATIVE (Negative) Influenza Type B (PCR) NEGATIVE (Negative) RSV RNA Qual (PCR) NEGATIVE (Negative) SARS-CoV-2 RNA (RT-PCR) NEGATIVE (Negative) ABG Data Attestation ABG: I personally reviewed and interpreted this ABG as follows: Interpretation: Hypercapnic hypoxic Independent Interpretation I performed an independent interpretation of an: EKG Interpretation: Sinus tachycardia heart rate 110 beats per minute normal interval normal axis no acute ST-T changes no acute ischemia Radiology Impression Discussion of test interpretation with radiology: I have reviewed the radiologist's reading. External Record Review External record reviewed: Outside ED record Critical Care Time Critical Care Time Critical Care Time: Yes Total Critical Care Time: 65 Attestation: The patient was critically ill with a high probability of imminent or life threatening deterioration. I spent greater than 70??minutes of discontinuous time evaluating the patient,delivering critical care at the bedside, discussing and evaluating pertinent data with consultants. Critical care time does not include time spent performing separately billable procedures or teaching. Total time spent performing critical care was 65???minutes. Discharge Plan Discharge Clinical Impression: Acute on chronic respiratory failure with hypoxia and hypercapnia, KIRILL (obstructive sleep apnea), Acute exacerbation of chronic obstructive airways disease Patient Disposition: Still a Patient Prescriptions: No Action ipratropium-albuterol 0.5 mg-3 mg(2.5 mg base)/3 mL solution for nebulization 3 ml inhalation Q4-6H PRN (Reason: wheezing) 30 Days Qty: 180 2RF Anoro Ellipta 62.5-25 mcg/actuation blister with device 1 inh inhalation DAILY 30 Days Qty: 1 6RF prednisone 20 mg tablet 20 mg PO DAILY PRN (Reason: shortness or breath/flare) acetaminophen 500 mg Tablet 1,000 mg PO DAILY PRN (Reason: Pain) polyethylene glycol 3350 [Miralax] 17 gram/dose Powder 17 g PO BEDTIME docusate sodium [Colace] 100 mg capsule 100 mg PO BEDTIME albuterol sulfate 90 mcg/actuation HFA aerosol inhaler 1 inh inhalation Q4-6H PRN (Reason: shortness of breath or wheezing) nicotine 21 mg/24 hr Patch 24 Hour 21 mg transdermal DAILY Qty: 28 0RF famotidine 20 mg Tablet 20 mg PO DAILY Qty: 30 0RF azithromycin 500 mg Tablet 500 mg PO Q24H Qty: 2 0RF prednisone 10 mg tablet 10 mg PO DIRECTED Qty: 30 0RF Rx Instructions: see taper instructions furosemide 40 mg tablet 40 mg PO DAILY 30 Days Qty: 30 6RF Combivent Respimat 20-100 mcg/actuation mist 1 puff inhalation Q6H 30 Days Qty: 4 6RF Print Language: Guatemalan
[2024-01-22 04:54] LABS: Influenza A PCR NEGATIVE (Negative); Influenza B PCR NEGATIVE (Negative); Resp Syncy Virus RNA Qual PCR NEGATIVE (Negative); SARS COV2 PCR INHOUSE NEGATIVE (Negative)
[2024-01-22] MEDS: methylPREDNISolone Sod Succ 125 MG/2 ML VIAL IVPUSH (05:17)
[2024-01-22] MEDS: Magnesium Sulfate/H2O 2 GM/50 ML PIGGYBACK IV (05:17)
[2024-01-22] MEDS: cefTRIAXone sodium 1 GM in 0.9 % Sodium Chloride 50 ML IV (05:38)
--- NOTE | 2024-01-22 07:08 | PC.NURSE ---
patient resting quietly in ED bed 5, patient has bipap on, 30% fio2, satting 96% after mask adjusted to patients face. patient tolerates mas well, VSS, IV intact and in place. patient at bedside. skin dry and intact
--- NOTE | 2024-01-22 08:39 | PC.NURSE ---
patient placed on oxymask, satting 93% on 3l, tolerating mask well.
--- NOTE | 2024-01-22 10:30 | PM.IMHP ---
History of Present Illness Date of Service: 01/22/24 Attending physician on admission: [facility] Chief Complaint: sob 58-year-old male with a PMH significant for?done COPD, 30+ pack-year smoker currently smoking about 1 pack daily and working on quitting, KIRILL pending CPAP, chronic lower leg edema on Lasix, and GERD presented to the ED this morning for evaluation of sob and productive cough with clear sputum ongoing x3 days. He cites humidity as a trigger for symptoms. 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 Denies fevers, chills, st, congestion, abd pain, n/v/d, urinary symptoms, lightheadedness, or chest pain. This morning sob worsened both at rest and with exertion prompting visit to the ED. On arrival, oximetry 75% on RA with expiratory wheezing and respiratory distress noted. Patient placed on bipap, given duonebs, iv methylprednisolone, and iv mag with some improvement. Has been weaned to 6L via oxymask maintaining oximetry 90-92%, down to 88% when talking. He is tachypneic, tachycardic. No leukocytosis. Renal function and lytes wnl. VBG about baseline with ph 7.32, pCO2 showing chronic hypercapnea at 68 and bicarb 35. Lactic acid 1.6. Negative for covid, flu, rsv. CXR shows bronchial wall thickening, no focal consolidation. He will be admitted for further management of acute COPD exacerbation with acute hypoxemic hypercapneic respiratory failure. Review of Systems Review of Systems: Yes all other systems are reviewed and are negative [facility] Medical History Smoker COPD (chronic obstructive pulmonary disease) HTN (hypertension) Acid reflux Diverticulitis Family History Mother Diabetes Arthritis Sleep apnea COPD (chronic obstructive pulmonary disease) Father Stomach cancer Diabetes Arthritis Sister Arthritis Surgical History Hx of colonoscopy History of colostomy reversal H/O colostomy Social History Household Members: Spouse Housing: Apartment Do you presently have visiting nurse or other home services: No Alcohol intake: current Alcohol intake frequency: holidays/special occasions only Alcohol type: beer Patient Tobacco Use Status: Current everyday Tobacco user Tobacco use type: Cigarette Cigarette Packs Per Day: 1 Cigarettes Per Day: 20.0 Years Smoked: 35 Smoked in Last 30 Days: Yes e-Cigarette/Vaping Use: Never Used Second Hand Smoke Exposure: Yes Use of substances other than those prescribed or required for medical reasons: No Advance Directives: No Advance Directives Information Provided: No service: No Current occupational status: employed Current occupation: [employer] Allergies Allergy/AdvReac Type Severity Reaction Status Date / Time No Known Allergies Allergy Unknown Verified 01/22/24 03:56 Home Medications ?Medication ?Instructions ?Recorded ?Confirmed ?Last Taken ?Type acetaminophen 500 mg tablet 1,000 mg PO DAILY PRN Pain 12/09/23 01/22/24 Unknown History albuterol sulfate 90 mcg/actuation 2 inh inhalation Q4H PRN shortness 12/09/23 01/22/24 Unknown History aerosol inhaler of breath or wheezing polyethylene glycol 3350 17 17 g PO BEDTIME 12/09/23 01/22/24 Unknown History gram/dose oral powder (Miralax) prednisone 20 mg tablet 20 mg PO DAILY PRN shortness or 12/09/23 01/22/24 Unknown History breath/flare hydrochlorothiazide 25 mg tablet 25 mg PO DAILY 01/22/24 01/22/24 01/22/24 09:00 History ipratropium 0.5 mg-albuterol 3 mg 3 ml inhalation Q4H PRN wheezing 01/22/24 01/22/24 Unknown History (2.5 mg base)/3 mL nebulization soln Physical Exam Vital Signs and Narrative: Vital Signs: Last Vital Signs Temp 97.4 F 01/22/24 09:31 Pulse 98 01/22/24 09:31 Resp 22 H 01/22/24 09:31 BP 154/78 H 01/22/24 09:31 Pulse Ox 95 01/22/24 09:31 O2 Del Method Oxymask 01/22/24 09:31 O2 Flow Rate 5 01/22/24 09:31 FiO2 30 01/22/24 07:06 BMI result Body Mass Index 40.7 Constitutional - Awake and Alert, No apparent distress Eyes - PERRLA, EOMI Cardiovascular - S1S2, RRR, No edema Respiratory - Normal lung expansion, Normal respiratory effort, No respiratory distress, bilateral expiratory wheezing Gastrointestinal - NT / ND; +BS; No rebound or guarding Extremities - no calf tenderness bilaterally, no swelling Skin - Warm/Dry Neurological - Alert & oriented x3 Psychological - Appropriate affect Results Labs 01/22/24 04:02 01/22/24 04:02 Labs: Laboratory Results - last 24 hr 01/22/24 01/22/24 01/22/24 04:02 04:05 04:11 MCV 93.7 MCH 29.2 MCHC 31.2 RDW 16.6 H Plt Count 297 MPV 9.4 Immature Gran % (Auto) 0.4 Neut % (Auto) 65.5 Lymph % (Auto) 23.6 [place] % (Auto) 6.2 Eos % (Auto) 3.9 Baso % (Auto) 0.4 Lymph # (Auto) 2.4 [place] # (Auto) 0.6 Eos # (Auto) 0.4 Baso # (Auto) 0.0 Abs Immat Gran (auto) 0.04 H Absolute Neuts (auto) 6.8 Absolute Nucleated RBC 0.000 Nucleated RBC % (auto) 0.0 VBG pH 7.32 VBG pCO2 68 VBG pO2 49 VBG HCO3 35 H VBG O2 Saturation 72.0 VBG Base Excess 6.4 Anion Gap 13 Estim Creat Clear Calc 132.3 Estimated GFR > 60 Random Glucose 126 H Lactic Acid 1.6 Calcium 9.9 D Total Bilirubin 0.3 AST 19 ALT 25 Alkaline Phosphatase 116 Troponin I High Sens 3.3 Total Protein 7.9 Albumin 3.7 Influenza Type A (PCR) NEGATIVE Influenza Type B (PCR) NEGATIVE RSV RNA Qual (PCR) NEGATIVE SARS-CoV-2 RNA (RT-PCR) NEGATIVE Imaging Radiologist's Impressions: Impressions Chest X-Ray 01/22/24 04:22 IMPRESSION: Bronchial wall thickening can be seen with a small airways process such as asthma or atypical/viral infection. Assessment and Plan (1) Acute on chronic respiratory failure with hypoxia and hypercapnia: Status: Acute (2) Acute exacerbation of chronic obstructive airways disease: Status: Acute Plan 58-year-old male with a PMH significant for?done COPD, 30+ pack-year smoker currently smoking about 1 pack daily and working on quitting, KIRILL pending CPAP, chronic lower leg edema on Lasix, and GERD admitted for acute COPD exacerbation with acute hypoxemic hypercapneic respiratory failure. #COPD exacerbation with acute hypoxemic hypercapneic respiratory failure with sepsis -tachycardic and tachypneic with oximetry 75% on arrival. Initially required bipap weaned to oxymask. Continue supplemental O2. No severe sepsis/shock -cxr shows small airways disease, no pneumonia -no covid/flu/rsv. Check RPP -IV methylprednisolone 40mg BID -duonebs q4h while awake/prn -IV azithromycin for pleiotropic effect -continue maintenance inhalers -guaifenesin prn #KIRILL -cpap bedtime #GERD -continue famotidine #Cigarette smoker -working on quitting, cessation advised -patch for nrt #morbid obestiy -weight loss efforts encouraged dvt prophylaxis- lovenox full code pt requires inpt stay at least 2 midnights for management of copd exacerbation with acute hypoxemic hypercapneic respiratory failure requiring iv steroids, nebs, and supplemental O2 at high doses wtih close monitoring for pulmonary decompensation as he did requrie bipap in ed Quality Stroke Does the patient have a stroke diagnosis?: No VTE Prior VTE?: No VTE Risk Level:: Medical - moderate - high VTE Device Contraindication: Treatment Not Indicated VTE Drug Contraindication: N/A - Med Ordered
--- NOTE | 2024-01-22 11:05 | PHA.MEDREC ---
Pharmacy Consult ? Medication Reconciliation Pharmacy has completed the medication reconciliation.
[2024-01-22] MEDS: Nicotine 21 MG PATCH.TD24 TRANSDERMA (11:29)
[2024-01-22] MEDS: Azithromycin 500 MG in 0.9 % Sodium Chloride 250 ML 125 MG IV (11:29)
[2024-01-22] MEDS: Enoxaparin Sodium 40 MG/0.4 ML SYRINGE SUBCUT (11:29)
[2024-01-22] MEDS: Albuterol/Iprat 2.5/0.5MG 3 ML AMPUL.NEB INHALE ×2 (11:37→19:55)
[2024-01-22 12:53] LABS: Adenovirus PCR Not Detected (Not Detect.); Bordetella parapertussis PCR Not Detected (Not Detect.); Bordetella pertussis PCR Not Detected (Not Detect.); Chlamydia pneumoniae PCR Not Detected (Not Detect.); Coronavirus 229E PCR Not Detected (Not Detect.); Coronavirus HKU1 PCR Not Detected (Not Detect.); Coronavirus NL63 PCR Not Detected (Not Detect.); Coronavirus OC43 PCR Not Detected (Not Detect.); Human metapneumovirus PCR Not Detected (Not Detect.); Influenza A PCR Not Detected (Not Detect.); Influenza B PCR Not Detected (Not Detect.); Mycoplasma pneumoniae PCR Not Detected (Not Detect.); Parainfluenza 1 PCR Not Detected (Not Detect.); Parainfluenza 2 PCR Not Detected (Not Detect.); Parainfluenza 3 PCR Not Detected (Not Detect.); Parainfluenza 4 PCR Not Detected (Not Detect.); RSV PCR Not Detected (Not Detect.); Rhino/Enterovirus PCR Not Detected (Not Detect.)
[2024-01-22 13:14] LABS: SARS-CoV-2 PCR Not Detected (Not Detect.)
[2024-01-22] MEDS: 0.9 % Sodium Chloride Flush 3 ML SYRINGE IVFLUSH ×2 (16:11→23:52)
[2024-01-22] MEDS: methylPREDNISolone Sod Succ 40 MG/ML VIAL IVPUSH (16:11)
--- NOTE | 2024-01-22 16:13 | PM.EVENT ---
Event Note Date of Service: 01/22/24 Event Note: Called to bedside. Pt lethargic, somnolent but arousable/startled,but falls asleep when talking. Oriented to self and place btu disoriented to time. Muttering words before falling back asleep. ABG ordered, pt will be placed back on bipap (has qualified for bipap on home sleep study but never picked up/doenst use). Transfer to med/tele Time Spent With Patient Time: Total time managing care of this patient today ____ minutes.
--- NOTE | 2024-01-22 16:24 | PC.NURSE ---
New admit this afternoon, on Oxy mask 5L, with periods of apnea, lethargic, and impulsive, pt and spouse stated that he is supposed to wear Cpap at home but never got one. Labs ordered and transfer to [facility] for close monitoring.
[2024-01-22 16:27] LABS: ABG Base Excess 4.9 mmol/L; ABG HCO3 35 mmol/L (22-26); ABG pCO2 82 mmHg (32-45); ABG pH 7.24 (7.35-7.45); ABG pO2 86 mmHg (83-108)
[2024-01-22 19:20] LABS: Glucose, Whole Blood 102 mg/dL (60-115)
[2024-01-22 19:48] LABS: ABG Base Excess 6.6 mmol/L; ABG HCO3 36 mmol/L (22-26); ABG pCO2 73 mmHg (32-45); ABG pO2 73 mmHg (83-108)
[2024-01-22] MEDS: HYDROmorphone HCl 0.5 MG/0.5 ML SYRINGE IVPUSH (20:40)
--- NOTE | 2024-01-22 20:42 | P.PNCC_ITS ---
Critical Care Event Note Summary Date of Service: 01/22/24 Code activated: No Narrative: This case had a high probability of a clinically significant, sudden, or life threatening deterioration of this patient's condition which required my full and direct attention, intervention and personal management. Critical Care Time (minutes): 45 Comment: Patient who had been admitted earlier to the floor with hypoxic respiratory failure on BiPAP whose gas review revealed compensated hypercapnic respiratory acidosis. Rapid response called at 19:30 on a patient who was more obtunded, nurses were h aving difficulty arousing him, I guess this similar event happened sometime in the afternoon and the patient had been placed on BiPAP, however since then the nurses think that he is getting worse. Upon arrival, indeed the patient was difficult to arouse only would moan and groan with sternal rub, not really following commands and not oriented.? Patient was on BiPAP initially 15 /5with a rate of 16 and FiO2 of 35%; it had then been changed to 18/8 without any improvement since 16:30 Overall the patient is morbidly obese with a weight of 135 kilos, who has underlying obstructive sleep apnea and had been advised to use CPAP at night but is pending and oxygen at home but the patient has not been doing so.? He still smoke and has a 40 pack-year history of tobacco consumption. At this point, repeat ABG was requested, labs reviewed. ?The best thing for the patient is to transfer him to the ICU for rescue BiPAP, I will adjust the FiO2 for an O2 sat of 88-90%, will increase the delta gap by changing settings to 20 over 8, increase rate to 24, decrease FiO2 to 88% and adjust accordingly. ASSESSMENT: Acute hypoxic/hypercarbic respiratory failure Morbid obesity Obstructive sleep apnea Acute COPD exacerbation PLAN OF CARE: As above-mentioned, transferred to ICU, the patient will be on rescue BiPAP, changes have already been made, will repeat blood gas at midnight and subsequently tomorrow morning.? If necessary will use low-dose opiates for work of breathing. Once the patient is more awake smoking cessation discussions should take place as well as further pulmonary evaluation for definition of his oxygenation and BiPAP needs at home. Continue with antibiotics, steroids and DuoNebs. Critical care time used for critical evaluation of this patient, diagnosis, treatment and coordination of care, review her records and documentation TOTAL CRITICAL CARE TIME? 45? MIN . discussion and coordination with consultants, completely separate from any procedures performed. Clinical update 06:15 01/23/2024 Patient was taken off BiPAP overnight given a break, completely alert and oriented x3 no acute distress speaking in full sentences and able to drink water. Venous blood gas done overnight shows significant compensation normalization of his acidosis and hypercarbia. We did continue with BiPAP as I think that the patient required CPAP at night something that he was supposed to start a home. BiPAP was stopped this morning around 5 in the morning, the patient is on 2 L nasal cannula satting 92%; he is slightly hypertensive, hydrochlorothiazide per home dose has been started. The patient is stable, mentating well and following commands, he has not longer somnolent or confused and I think the patient can transition to telemetry for further care. Case discussed in detail with Dr. Shankar. Patient's care was discussed in detail with Dr. Montanez.? He is aware of all the above as well as the plan of care for this patient. .
--- NOTE | 2024-01-22 21:05 | PC.NURSE ---
Pt to ICU at 1950 with bipap mask on 20/8/28%O2. Very somnolent, not following commands, not answering questions. Started to pull off bipap and monitor wires, kaitlyn, hospital gown etc. Pt restrained per order of RAMU Hua. Pt received dilaudid 0.5mg IVP with good effect. Pt tolerated this med well. BP on arrival 132/81 and NSR, rate 90's. Currently 131/87, HR 90 NSR no ectopy. Bipap settings changes by ALISON Montaño to increase rate to 24 and 35% O2 as sats were falling 85-88%. Now resp rate is 20-22 and O2 sat 90%. Lungs are dim throughout all joseph. Abd is large, distended, semi firm with +BS 4 quads. Pedal pulses palpable. External urinary cath applied. No urine in bag. at bedside and updated by Alison Montaño.
--- NOTE | 2024-01-22 22:44 | PM.EVENT ---
Event Note Date of Service: 01/22/24 Event Note: 7:26 PM - Rapid response was activated as the patient is obtunded despite received treatment with rescue BiPAP. On examination, patient was barely responsive. VS remarkable for tachypnea. Oxygen saturation in the low 90s. No tachycardia or hypotension. BiPAP mask on. Cardiac exam is unremarkable. Her pulmonary exam remarkable for increased breath sounds bilaterally without wheezing, rhonchi or crackles. ABG was obtained stat and showed respiratory acidosis, slightly better than prior (4:18 PM). Patient has been evaluated by ICU and accepted for close monitoring of neurological and respiratory status. Time Spent With Patient Time: Total time managing care of this patient today ____ minutes.
[2024-01-22 23:18] LABS: ABG Refer to POC result
[2024-01-22] MEDS: Furosemide 40 MG/4 ML VIAL IVPUSH (23:52)
[2024-01-22 23:56] LABS: Venous Blood Gas Refer to POC result
[2024-01-23] VITALS (24 sets, daily range): BP systolic 128–159; BP diastolic 60–94; PULSE 72–106; RESP 12–28; TEMP 36.3–37; O2SAT 87–99
[2024-01-23] LABS: VBG Base Excess 9.5 mmol/L; VBG HCO3 38 mmol/L (22-26); VBG pCO2 71 mmHg; VBG pH 7.34 (7.32-7.43); VBG pO2 37 mmHg
[2024-01-23 00:25] LABS: ABG Refer to POC result
[2024-01-23] MEDS: HYDROmorphone HCl 0.5 MG/0.5 ML SYRINGE IVPUSH (01:57)
[2024-01-23] MEDS: methylPREDNISolone Sod Succ 40 MG/ML VIAL IVPUSH ×2 (04:07→17:46)
[2024-01-23] MEDS: Albuterol/Iprat 2.5/0.5MG 3 ML AMPUL.NEB INHALE ×5 (04:55→19:51)
[2024-01-23 05:33] LABS: VBG Base Excess 11.5 mmol/L; VBG HCO3 37 mmol/L (22-26); VBG pCO2 53 mmHg; VBG pH 7.45 (7.32-7.43); VBG pO2 52 mmHg
[2024-01-23 05:34] LABS: Venous Blood Gas Refer to POC result
[2024-01-23 05:39] LABS: MANUAL DIFF FLAG NO
[2024-01-23 05:41] LABS: Basophils Percent Auto 0.2 % (0-2); Hematocrit 46.8 % (42.0-52.0); Hemoglobin 14.6 g/dl (14.0-18.0); Imm Gran Pct Auto 0.7 % (0.0-0.4); Lymphocytes Absolute Auto 1.6 X10*3/uL (1.2-4.9); Lymphocytes Percent Auto 10.9 % (20-40); Mean Corpuscular HGB Conc 31.2 g/dl (31.0-36.0); Mean Corpuscular Hemoglobin 29.6 pg (27.0-33.0); Mean Corpuscular Volume 94.7 fL (80.0-98.0); Mean Platelet Volume 9.7 fL (9.4-12.4); Monocytes Absolute Auto 0.9 X10*3/uL (0.1-1.2); Monocytes Percent Auto 5.8 % (2-11); Neutrophils Absolute Auto 12.1 x10*3/uL (2.0-8.3); Neutrophils Percent Auto 82.4 % (45-73); Platelet Count 300 X10*3/uL (160-400); Red Blood Count 4.94 X10*6/uL (4.60-5.80); Red Cell Distribution Width 16.4 % (11.0-16.0); White Blood Count 14.7 X10*3/uL (4.8-10.8)
[2024-01-23 05:56] LABS: Alanine Aminotransferase 21 U/L (0-40); Albumin Level 3.5 g/dL (3.5-5.0); Alkaline Phosphatase 101 U/L (39-117); Anion Gap 12 (12-20); Aspartate Amino Transferase 15 U/L (5-37); Bilirubin Total 0.2 mg/dL (0.0-1.0); Blood Urea Nitrogen 12 mg/dL (9-16); Calcium 9.6 mg/dL (8.4-10.2); Carbon Dioxide 31 mmol/L (22-29); Chloride 101 mmol/L (96-108); Creatinine Clr Calc Pharmacy 124.2; Estimated Glomerular Filt Rate > 60; Glucose Random 120 mg/dL (60-115); Magnesium 2.4 mg/dL (1.6-2.6); Phosphorus 2.4 mg/dL (2.7-4.5); Potassium 4.6 mmol/L (3.3-5.1); Sodium 139 mmol/L (135-145); Total Protein 7.8 g/dL (6.5-8.0)
[2024-01-23] MEDS: hydroCHLOROthiazide 25 MG TABLET PO (06:29)
[2024-01-23] MEDS: Sodium,Potassium Phosphates POWD.PACK 2 PACKET PO ×2 (08:32→21:59)
[2024-01-23] MEDS: Nicotine 21 MG PATCH.TD24 TRANSDERMA (08:33)
[2024-01-23] MEDS: 0.9 % Sodium Chloride Flush 3 ML SYRINGE IVFLUSH ×3 (08:33→21:59)
--- NOTE | 2024-01-23 09:40 | HO.PM.IMPN ---
Subjective Subjective Date of Service: 01/23/24 Review of Systems Follow up resp failure doing better today needs cpap Physical Exam Vital Signs: Vital Signs: Last Vital Signs Temp 97.7 F 01/23/24 08:00 Pulse 94 01/23/24 08:00 Resp 21 H 01/23/24 08:00 BP 155/82 H 01/23/24 08:00 Pulse Ox 89 L 01/23/24 08:00 O2 Del Method Nasal Cannula 01/23/24 08:00 O2 Flow Rate 2 01/23/24 08:00 FiO2 35 01/23/24 06:00 BMI result Body Mass Index 45.0 Appearing in no acute distress lung sounds clear/diminished heart regular rate rhythm, clear S1, S2 positive bowel sounds, abdomen is soft, nontender neuro patient is alert x3, no focal deficits Objective Data Active Medications Acetaminophen (Acetaminophen 325 Mg Tablet) 650 mg PO Q6H PRN PRN Reason: Pain, Mild (Pain Scale 1-3), fever or headache Albuterol/Ipratropium (Albuterol/Iprat 2.5/0.5mg 3 Ml Ampul.Neb) 3 ml INHALE RQ4H WHILE AWAKE [facility] Last Admin: 01/23/24 07:18 Dose: 3 ml Documented By: ELHAM Albuterol/Ipratropium (Albuterol/Iprat 2.5/0.5mg 3 Ml Ampul.Neb) 3 ml INHALE RQ4H WHILE AWAKE PRN PRN Reason: Shortness of Breath/Wheezing Last Admin: 01/23/24 04:55 Dose: 3 ml Documented By: KYLIE Calcium Carbonate (Calcium Carbonate 750 Mg Tab.Chew) 750 mg PO Q4H PRN PRN Reason: Heartburn Enoxaparin Sodium (Enoxaparin Sodium 40 Mg/0.4 Ml Syringe) 40 mg SUBCUT Q24H [facility] Last Admin: 01/22/24 11:29 Dose: 40 mg Documented By: RADHA Guaifenesin (Guaifenesin 200 Mg/10 Ml 10 Ml Liquid) 10 ml PO Q4H PRN PRN Reason: Cough Hydrochlorothiazide (Hydrochlorothiazide 25 Mg Tablet) 25 mg PO DAILY [facility]; Protocol Last Admin: 01/23/24 08:50 Dose: Not Given Documented By: LIZBETH Non-Admin Reason: Previously Administered Azithromycin 500 mg/ Sodium (Chloride) 250 mls @ 125 mls/hr IV Q24H [facility] Last Infusion: 01/22/24 14:43 Dose: Infused Documented By: FRANCI Magnesium Hydroxide (Milk Of Magnesia 30 Ml Oral.Susp) 30 ml PO DAILY PRN PRN Reason: Constipation Melatonin (Melatonin 3 Mg Tablet) 6 mg PO BEDTIME PRN PRN Reason: Insomnia Methylprednisolone Sodium Succinate (Methylprednisolone Sod Succ 40 Mg/Ml Vial) 40 mg IVPUSH Q12H [facility] Last Admin: 01/23/24 04:07 Dose: 40 mg Documented By: EDY Nicotine (Nicotine 21 Mg Patch.Td24) 21 mg TRANSDERMA DAILY [facility] Last Admin: 01/23/24 08:33 Dose: 21 mg Documented By: LIZBETH Potassium Phos/Sodium Phos (Sodium,Potassium Phosphates Powd.Pack) 2 packet PO BID [facility] Stop: 01/24/24 09:01 Last Admin: 01/23/24 08:32 Dose: 2 packet Documented By: LIZBETH Sodium Chloride (0.9 % Sodium Chloride Flush 3 Ml Syringe) 3 ml IVFLUSH QSHIFT [facility] Last Admin: 01/23/24 08:33 Dose: 3 ml Documented By: LIZBETH Labs 01/23/24 05:26 01/23/24 05:26 Labs: Laboratory Results - last 24 hr 01/22/24 01/22/24 01/22/24 11:55 16:18 19:15 MCV MCH MCHC RDW Plt Count MPV Immature Gran % (Auto) Neut % (Auto) Lymph % (Auto) Hickman % (Auto) Eos % (Auto) Baso % (Auto) Lymph # (Auto) Hickman # (Auto) Eos # (Auto) Baso # (Auto) Abs Immat Gran (auto) Absolute Neuts (auto) Absolute Nucleated RBC Nucleated RBC % (auto) O2 Saturation 96.0 ABG pH at Pt Temp 7.24 L ABG pCO2 at Pt Temp 82 H* ABG pO2 at Pt Temp 86 ABG HCO3 35 H ABG Base Excess (Actual) 4.9 VBG pH VBG pCO2 VBG pO2 VBG HCO3 VBG O2 Saturation VBG Base Excess Anion Gap Estim Creat Clear Calc Estimated GFR POC Glucose 102 Random Glucose Calcium Phosphorus Magnesium Total Bilirubin AST ALT Alkaline Phosphatase Total Protein Albumin Respiratory Panel Islas See Note Adenovirus (Rapid PCR) Not Detected B.pert (TEM-PCR) Not Detected B.parapertussis DNA PCR Not Detected C. pneumoniae DNA (PCR) Not Detected Coronavirus OC43 (PCR) Not Detected Coronavirus HKU1 (PCR) Not Detected Coronavirus 229E (PCR) Not Detected Coronavirus NL63 (PCR) Not Detected Human Metapneumovir PCR Not Detected Influenza A (RT-PCR) Not Detected Influenza B (RT-PCR) Not Detected M. pneumoniae (PCR) Not Detected Parainfluenza 1 (PCR) Not Detected Parainfluenza 2 (PCR) Not Detected Parainfluenza 3 (PCR) Not Detected Parainfluenza 4 (PCR) Not Detected RSV (PCR) Not Detected Entero/Rhino (PCR) Not Detected SARS-CoV-2 RNA (RT-PCR) Not Detected 01/22/24 01/22/24 01/23/24 19:39 23:51 05:24 MCV MCH MCHC RDW Plt Count MPV Immature Gran % (Auto) Neut % (Auto) Lymph % (Auto) Hickman % (Auto) Eos % (Auto) Baso % (Auto) Lymph # (Auto) Hickman # (Auto) Eos # (Auto) Baso # (Auto) Abs Immat Gran (auto) Absolute Neuts (auto) Absolute Nucleated RBC Nucleated RBC % (auto) O2 Saturation 93.0 ABG pH at Pt Temp 7.30 L ABG pCO2 at Pt Temp 73 H* ABG pO2 at Pt Temp 73 L ABG HCO3 36 H ABG Base Excess (Actual) 6.6 VBG pH 7.34 7.45 H VBG pCO2 71 53 VBG pO2 37 52 VBG HCO3 38 H 37 H VBG O2 Saturation 59.0 87.0 VBG Base Excess 9.5 11.5 Anion Gap Estim Creat Clear Calc Estimated GFR POC Glucose Random Glucose Calcium Phosphorus Magnesium Total Bilirubin AST ALT Alkaline Phosphatase Total Protein Albumin Respiratory Panel Islas Adenovirus (Rapid PCR) B.pert (TEM-PCR) B.parapertussis DNA PCR C. pneumoniae DNA (PCR) Coronavirus OC43 (PCR) Coronavirus HKU1 (PCR) Coronavirus 229E (PCR) Coronavirus NL63 (PCR) Human Metapneumovir PCR Influenza A (RT-PCR) Influenza B (RT-PCR) M. pneumoniae (PCR) Parainfluenza 1 (PCR) Parainfluenza 2 (PCR) Parainfluenza 3 (PCR) Parainfluenza 4 (PCR) RSV (PCR) Entero/Rhino (PCR) SARS-CoV-2 RNA (RT-PCR) 01/23/24 05:26 MCV 94.7 MCH 29.6 MCHC 31.2 RDW 16.4 H Plt Count 300 MPV 9.7 Immature Gran % (Auto) 0.7 H Neut % (Auto) 82.4 H Lymph % (Auto) 10.9 L Hickman % (Auto) 5.8 Eos % (Auto) 0.0 Baso % (Auto) 0.2 Lymph # (Auto) 1.6 Hickman # (Auto) 0.9 Eos # (Auto) 0.0 Baso # (Auto) 0.0 Abs Immat Gran (auto) 0.10 H Absolute Neuts (auto) 12.1 H Absolute Nucleated RBC 0.000 Nucleated RBC % (auto) 0.0 O2 Saturation ABG pH at Pt Temp ABG pCO2 at Pt Temp ABG pO2 at Pt Temp ABG HCO3 ABG Base Excess (Actual) VBG pH VBG pCO2 VBG pO2 VBG HCO3 VBG O2 Saturation VBG Base Excess Anion Gap 12 Estim Creat Clear Calc 124.2 Estimated GFR > 60 POC Glucose Random Glucose 120 H Calcium 9.6 Phosphorus 2.4 L Magnesium 2.4 Total Bilirubin 0.2 AST 15 ALT 21 Alkaline Phosphatase 101 Total Protein 7.8 Albumin 3.5 Respiratory Panel Silas Adenovirus (Rapid PCR) B.pert (TEM-PCR) B.parapertussis DNA PCR C. pneumoniae DNA (PCR) Coronavirus OC43 (PCR) Coronavirus HKU1 (PCR) Coronavirus 229E (PCR) Coronavirus NL63 (PCR) Human Metapneumovir PCR Influenza A (RT-PCR) Influenza B (RT-PCR) M. pneumoniae (PCR) Parainfluenza 1 (PCR) Parainfluenza 2 (PCR) Parainfluenza 3 (PCR) Parainfluenza 4 (PCR) RSV (PCR) Entero/Rhino (PCR) SARS-CoV-2 RNA (RT-PCR) Microbiology Microbiology Results: Microbiology 01/22/24 05:35 Blood Culture - Preliminary Blood - Venous No growth after 24 hours. 01/22/24 05:35 Blood Culture - Preliminary Blood - Venous No growth after 24 hours. Assessment and Plan (1) Acute on chronic respiratory failure with hypoxia and hypercapnia: Status: Acute Plan 58-year-old male with a PMH significant for?done COPD, 30+ pack-year smoker currently smoking about 1 pack daily and working on quitting, KIRILL pending CPAP, chronic lower leg edema on Lasix, and GERD admitted for acute COPD exacerbation with acute hypoxemic hypercapneic respiratory failure. Rapid response called 01/22/24 at 1930, pt tx to ICU for bipap, off bipap and tx to med/tele at 0600 Acute hypoxemic and hypercarbic respiratory failure secondary to COPD exacerbation Initially required bipap weaned to oxymask. cxr shows small airways disease, no pneumonia Negative RPP Continue IV Solu-Medrol and scheduled DuoNebs IV azithromycin for pleiotropic effect guaifenesin prn KIRILL bipap while in the ICU cpap bedtime GERD continue famotidine Cigarette smoker Discussed the importance of smoking cessation NRT Morbid obesity. BMI 45.1 Discussed importance of weight management as this may be contributing to worsening of other comorbidities dvt prophylaxis- lovenox Attending Dr. Gibbons full code continue hospital stay for management of copd exacerbation with acute hypoxemic hypercapneic respiratory failure requiring iv steroids, nebs, and supplemental O2 at high doses with close monitoring for pulmonary decompensation as he did requrie bipap in ed Quality Stroke Does the patient have a stroke diagnosis?: No VTE Prior VTE?: No VTE Risk Level:: Medical - moderate - high VTE Device Contraindication: Treatment Not Indicated VTE Drug Contraindication: N/A - Med Ordered
--- NOTE | 2024-01-23 11:30 | MHC.CM.PN ---
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 Pt does have prn O2 from [facility] and will likely require a CPAP based on presentation and past hx of KIRILL. PCP is Dr. Zeng, HCP copy requested, family to transport to home. Pt may have a CPAP copay from insurer and is aware - MD and respiratory have discussed the need for CPAP w/pt and Paz (partner). CM to follow.
[2024-01-23] MEDS: Azithromycin 500 MG in 0.9 % Sodium Chloride 250 ML 125 MG IV (12:44)
[2024-01-23] MEDS: Enoxaparin Sodium 40 MG/0.4 ML SYRINGE SUBCUT (12:45)
[2024-01-24] VITALS (10 sets, daily range): BP systolic 135–163; BP diastolic 70–91; PULSE 79–114; RESP 18–24; TEMP 36.8–37.2; O2SAT 91–98
[2024-01-24] MEDS: methylPREDNISolone Sod Succ 40 MG/ML VIAL IVPUSH ×2 (04:31→17:30)
[2024-01-24] MEDS: bisacodyL 5 MG TABLET.DR PO (04:31)
[2024-01-24] MEDS: Albuterol/Iprat 2.5/0.5MG 3 ML AMPUL.NEB INHALE ×4 (08:10→19:31)
[2024-01-24] MEDS: Nicotine 21 MG PATCH.TD24 TRANSDERMA (08:49)
[2024-01-24] MEDS: 0.9 % Sodium Chloride Flush 3 ML SYRINGE IVFLUSH ×2 (08:52→17:30)
[2024-01-24] MEDS: hydroCHLOROthiazide 25 MG TABLET PO (08:52)
[2024-01-24] MEDS: Sodium,Potassium Phosphates POWD.PACK 2 PACKET PO (08:53)
[2024-01-24] MEDS: Enoxaparin Sodium 40 MG/0.4 ML SYRINGE SUBCUT (11:06)
[2024-01-24] MEDS: Azithromycin 500 MG in 0.9 % Sodium Chloride 250 ML 125 MG IV (11:07)
--- NOTE | 2024-01-24 13:02 | MHC.CM.PN ---
EMR REVIEWED, CM CONTACTED [facility] CPAP DEPT AND THEY REPORTED HIS COPAY WAS 63.96 AND HE NEEDED TO PAY PRIOR TO DELIVERY. CM MET W/PT AND S.O. AT BEDSIDE AND PT'S S.O. WES HAD ALSO JUST GOTTEN OFF THE PHONE W/[facility] AND THEY QUOTED HER APPROX $60 FOR COPAY AND THAT THEY ARE WAITING FOR PHYSICIANS ORDER AND ONCE RECEIVED WES CAN MAKE PAYMENT FOR PT. PER WES [facility] WILL DELIVER BIPAP TO BEDSIDE AND WOULD LIKE PT TO REMAIN INPT UNTIL TOMORROW, HOSPITALIST AGREEABLE AND CM WILL CONT TO FOLLOW DC NEEDS.
--- NOTE | 2024-01-24 13:13 | P.PNIM_ITS ---
Subjective Subjective Date of Service: 01/24/24 Review of Systems Follow up resp failure doing better today needs cpap Physical Exam 2 Vital Signs: Vital Signs: Last Vital Signs Temp 99.0 F 01/24/24 11:28 Pulse 114 H 01/24/24 12:18 Resp 20 01/24/24 12:18 BP 163/80 H 01/24/24 11:28 Pulse Ox 96 01/24/24 11:28 O2 Del Method Nasal Cannula 01/24/24 11:28 O2 Flow Rate 2 01/24/24 11:28 FiO2 35 01/23/24 06:00 BMI result Body Mass Index 45.0 Appearing in no acute distress lung sounds are clear to auscultation heart regular rate rhythm, clear S1, S2 positive bowel sounds, abdomen is soft, nontender neuro patient is alert x3, no focal deficits Objective Data Active Medications Acetaminophen (Acetaminophen 325 Mg Tablet) 650 mg PO Q6H PRN PRN Reason: Pain, Mild (Pain Scale 1-3), fever or headache Albuterol/Ipratropium (Albuterol/Iprat 2.5/0.5mg 3 Ml Ampul.Neb) 3 ml INHALE RQ4H WHILE AWAKE [facility] Last Admin: 01/24/24 12:17 Dose: 3 ml Documented By: JEANIE Albuterol/Ipratropium (Albuterol/Iprat 2.5/0.5mg 3 Ml Ampul.Neb) 3 ml INHALE RQ4H WHILE AWAKE PRN PRN Reason: Shortness of Breath/Wheezing Last Admin: 01/23/24 04:55 Dose: 3 ml Calcium Carbonate (Calcium Carbonate 750 Mg Tab.Chew) 750 mg PO Q4H PRN PRN Reason: Heartburn Enoxaparin Sodium (Enoxaparin Sodium 40 Mg/0.4 Ml Syringe) 40 mg SUBCUT Q24H [facility] Last Admin: 01/24/24 11:06 Dose: 40 mg Documented By: TING Guaifenesin (Guaifenesin 200 Mg/10 Ml 10 Ml Liquid) 10 ml PO Q4H PRN PRN Reason: Cough Hydrochlorothiazide (Hydrochlorothiazide 25 Mg Tablet) 25 mg PO DAILY [facility]; Protocol Last Admin: 01/24/24 08:52 Dose: 25 mg Documented By: TING Azithromycin 500 mg/ Sodium (Chloride) 250 mls @ 125 mls/hr IV Q24H [facility] Last Admin: 01/24/24 11:07 Dose: 125 mls/hr Documented By: TING Comments: barcode on NS bag will not scan Magnesium Hydroxide (Milk Of Magnesia 30 Ml Oral.Susp) 30 ml PO DAILY PRN PRN Reason: Constipation Melatonin (Melatonin 3 Mg Tablet) 6 mg PO BEDTIME PRN PRN Reason: Insomnia Methylprednisolone Sodium Succinate (Methylprednisolone Sod Succ 40 Mg/Ml Vial) 40 mg IVPUSH Q12H [facility] Last Admin: 01/24/24 04:31 Dose: 40 mg Documented By: ISAEL Nicotine (Nicotine 21 Mg Patch.Td24) 21 mg TRANSDERMA DAILY [facility] Last Admin: 01/24/24 08:49 Dose: 21 mg Documented By: TING Sodium Chloride (0.9 % Sodium Chloride Flush 3 Ml Syringe) 3 ml IVFLUSH QSHIFT [facility] Last Admin: 01/24/24 08:52 Dose: 3 ml Documented By: TING Labs 01/23/24 05:26 01/23/24 05:26 Microbiology Microbiology Results: Microbiology 01/22/24 05:35 Blood Culture - Preliminary Blood - Venous No growth after 48 hours. 01/22/24 05:35 Blood Culture - Preliminary Blood - Venous No growth after 48 hours. Assessment and Plan (1) Acute on chronic respiratory failure with hypoxia and hypercapnia: Status: Acute Plan 58-year-old male with a PMH significant for?done COPD, 30+ pack-year smoker currently smoking about 1 pack daily and working on quitting, KIRILL pending CPAP, chronic lower leg edema on Lasix, and GERD admitted for acute COPD exacerbation with acute hypoxemic hypercapneic respiratory failure. Rapid response called 01/22/24 at 1930, pt tx to ICU for bipap, off bipap and tx back to med/tele at 0600 Acute hypoxemic and hypercarbic respiratory failure secondary to COPD exacerbation and KIRILL Initially required bipap weaned to oxymask on [place]. cxr shows small airways disease, no pneumonia Negative RPP Continue IV Solu-Medrol and scheduled DuoNebs s/p IV azithromycin for pleiotropic effect guaifenesin prn Severe KIRILL s/p bipap while in the ICU will receive cpap at bedside today from [facility], [place] GERD continue famotidine Cigarette smoker Discussed the importance of smoking cessation NRT Morbid obesity. BMI 45.1 Discussed importance of weight management as this may be contributing to worsening of other comorbidities dvt prophylaxis- lovenox Attending Dr. Gibbons full code DISPO Home when medically clear with cpap continue hospital stay for management of copd exacerbation with acute hypoxemic hypercapneic respiratory failure requiring iv steroids, nebs, and supplemental O2 at high doses with close monitoring for pulmonary decompensation as he did requrie bipap in ed Quality Stroke Does the patient have a stroke diagnosis?: No VTE Prior VTE?: No VTE Risk Level:: Medical - moderate - high VTE Device Contraindication: Treatment Not Indicated VTE Drug Contraindication: N/A - Med Ordered
[2024-01-24] MEDS: polyethylene glycoL 3350 17 GM POWD.PACK PO (19:37)
[2024-01-25] VITALS (11 sets, daily range): BP systolic 119–148; BP diastolic 69–87; PULSE 84–104; RESP 18–22; TEMP 36.6–37.1; O2SAT 92–97
[2024-01-25] MEDS: 0.9 % Sodium Chloride Flush 3 ML SYRINGE IVFLUSH ×4 (00:11→23:59)
[2024-01-25] MEDS: methylPREDNISolone Sod Succ 40 MG/ML VIAL IVPUSH ×2 (04:51→16:28)
[2024-01-25] MEDS: Albuterol/Iprat 2.5/0.5MG 3 ML AMPUL.NEB INHALE ×4 (07:50→19:28)
--- NOTE | 2024-01-25 09:32 | MHC.CM.PN ---
PT MEDICALLY CLEARED FOR DC HOME NO SERVICES AND NEW BIPAP & RESUMP OF HOME O2 W/[facility], FAMILY TO TRANSPORT
[2024-01-25] MEDS: Furosemide 40 MG TABLET PO (10:16)
[2024-01-25] MEDS: Famotidine 20 MG TABLET PO (10:17)
[2024-01-25] MEDS: hydroCHLOROthiazide 25 MG TABLET PO ×2 (10:17)
[2024-01-25] MEDS: Enoxaparin Sodium 40 MG/0.4 ML SYRINGE SUBCUT (10:17)
[2024-01-25] MEDS: Nicotine 21 MG PATCH.TD24 TRANSDERMA (10:19)
--- NOTE | 2024-01-25 12:30 | P.PNIM_ITS ---
Subjective Subjective Date of Service: 01/25/24 Interval History: feeling better Physical Exam 2 Vital Signs: Vital Signs: Last Vital Signs Temp 98.4 F 01/25/24 11:16 Pulse 90 01/25/24 11:33 Resp 20 01/25/24 11:33 BP 142/87 H 01/25/24 11:16 Pulse Ox 96 01/25/24 11:16 O2 Del Method Nasal Cannula 01/25/24 11:16 O2 Flow Rate 2 01/25/24 11:16 FiO2 28 01/25/24 04:00 BMI result Body Mass Index 45.0 Appearing in no acute distress lung sounds are clear to auscultation heart regular rate rhythm, clear S1, S2 positive bowel sounds, abdomen is soft, nontender neuro patient is alert x3, no focal deficits Objective Data Active Medications Acetaminophen (Acetaminophen 325 Mg Tablet) 650 mg PO Q6H PRN PRN Reason: Pain, Mild (Pain Scale 1-3), fever or headache Albuterol/Ipratropium (Albuterol/Iprat 2.5/0.5mg 3 Ml Ampul.Neb) 3 ml INHALE RQ4H WHILE AWAKE [facility] Last Admin: 01/25/24 11:32 Dose: 3 ml Documented By: CHRIS Albuterol/Ipratropium (Albuterol/Iprat 2.5/0.5mg 3 Ml Ampul.Neb) 3 ml INHALE RQ4H WHILE AWAKE PRN PRN Reason: Shortness of Breath/Wheezing Last Admin: 01/23/24 04:55 Dose: 3 ml Calcium Carbonate (Calcium Carbonate 750 Mg Tab.Chew) 750 mg PO Q4H PRN PRN Reason: Heartburn Enoxaparin Sodium (Enoxaparin Sodium 40 Mg/0.4 Ml Syringe) 40 mg SUBCUT Q24H [facility] Last Admin: 01/25/24 10:17 Dose: 40 mg Documented By: JOE Famotidine (Famotidine 20 Mg Tablet) 20 mg PO DAILY [facility] Last Admin: 01/25/24 10:17 Dose: 20 mg Documented By: JOE Furosemide (Furosemide 40 Mg Tablet) 40 mg PO DAILY [facility]; Protocol Last Admin: 01/25/24 10:16 Dose: 40 mg Documented By: JOE Guaifenesin (Guaifenesin 200 Mg/10 Ml 10 Ml Liquid) 10 ml PO Q4H PRN PRN Reason: Cough Hydrochlorothiazide (Hydrochlorothiazide 25 Mg Tablet) 25 mg PO DAILY [facility]; Protocol Last Admin: 01/25/24 10:17 Dose: 25 mg Documented By: JOE Hydrochlorothiazide (Hydrochlorothiazide 25 Mg Tablet) 25 mg PO DAILY [facility]; Protocol Last Admin: 01/25/24 10:17 Dose: 25 mg Documented By: JOE Magnesium Hydroxide (Milk Of Magnesia 30 Ml Oral.Susp) 30 ml PO DAILY PRN PRN Reason: Constipation Melatonin (Melatonin 3 Mg Tablet) 6 mg PO BEDTIME PRN PRN Reason: Insomnia Methylprednisolone Sodium Succinate (Methylprednisolone Sod Succ 40 Mg/Ml Vial) 40 mg IVPUSH Q12H [facility] Last Admin: 01/25/24 04:51 Dose: 40 mg Documented By: MOHIT Nicotine (Nicotine 21 Mg Patch.Td24) 21 mg TRANSDERMA DAILY [facility] Last Admin: 01/25/24 10:19 Dose: 21 mg Documented By: JOE Polyethylene Glycol (Polyethylene Glycol 3350 17 Gm Powd.Pack) 17 gm PO BEDTIME [facility] Last Admin: 01/24/24 19:37 Dose: 17 gm Documented By: MICHAEL Sodium Chloride (0.9 % Sodium Chloride Flush 3 Ml Syringe) 3 ml IVFLUSH QSHIFT [facility] Last Admin: 01/25/24 10:17 Dose: 3 ml Documented By: JOE Labs 01/23/24 05:26 01/23/24 05:26 Assessment and Plan (1) Acute on chronic respiratory failure with hypoxia and hypercapnia: Status: Acute Plan 58-year-old male with a PMH significant for?done COPD, 30+ pack-year smoker currently smoking about 1 pack daily and working on quitting, KIRILL pending CPAP, chronic lower leg edema on Lasix, and GERD admitted for acute COPD exacerbation with acute hypoxemic hypercapneic respiratory failure. Rapid response called 01/22/24 at 1930, pt tx to ICU for bipap, off bipap and tx back to med/tele at 0600 Acute hypoxemic and hypercarbic respiratory failure secondary to COPD exacerbation and KIRILL Initially required bipap weaned to oxymask on [place]. cxr shows small airways disease, no pneumonia Negative RPP Continue IV Solu-Medrol and scheduled DuoNebs s/p IV azithromycin for pleiotropic effect guaifenesin prn Severe KIRILL s/p bipap while in the ICU awaiting [facility] to bring machine GERD continue famotidine Cigarette smoker Discussed the importance of smoking cessation NRT Morbid obesity. BMI 45.1 Discussed importance of weight management as this may be contributing to worsening of other comorbidities dvt prophylaxis- lovenox full code reason for continued hospitalization:awaiting equipment Quality Stroke Does the patient have a stroke diagnosis?: No VTE Prior VTE?: No VTE Risk Level:: Medical - moderate - high VTE Device Contraindication: Treatment Not Indicated VTE Drug Contraindication: N/A - Med Ordered
[2024-01-25] MEDS: polyethylene glycoL 3350 17 GM POWD.PACK PO (19:43)
[2024-01-26] VITALS (10 sets, daily range): BP systolic 144–164; BP diastolic 70–100; PULSE 89–117; RESP 18–24; TEMP 36.3–37.2; O2SAT 87–94
[2024-01-26] MEDS: guaiFENesin 200 MG/10 ML 10 ML LIQUID PO ×2 (04:47→22:32)
[2024-01-26] MEDS: methylPREDNISolone Sod Succ 40 MG/ML VIAL IVPUSH ×2 (04:47→17:18)
[2024-01-26] MEDS: Albuterol/Iprat 2.5/0.5MG 3 ML AMPUL.NEB INHALE ×4 (07:29→18:38)
[2024-01-26] MEDS: Furosemide 40 MG TABLET PO (10:36)
[2024-01-26] MEDS: hydroCHLOROthiazide 25 MG TABLET PO ×2 (10:36→10:58)
[2024-01-26] MEDS: 0.9 % Sodium Chloride Flush 3 ML SYRINGE IVFLUSH ×3 (10:37→22:32)
[2024-01-26] MEDS: Enoxaparin Sodium 40 MG/0.4 ML SYRINGE SUBCUT (10:37)
[2024-01-26] MEDS: Famotidine 20 MG TABLET PO (10:38)
--- NOTE | 2024-01-26 10:38 | HO.PM.IMPN ---
Subjective Subjective Date of Service: 01/26/24 Interval History: feeling better Physical Exam Vital Signs: Vital Signs: Last Vital Signs Temp 97.8 F 01/26/24 08:00 Pulse 92 01/26/24 08:00 Resp 20 01/26/24 08:00 BP 164/95 H 01/26/24 08:00 Pulse Ox 89 L 01/26/24 08:00 O2 Del Method Nasal Cannula 01/26/24 08:00 O2 Flow Rate 2 01/26/24 08:00 FiO2 28 01/25/24 04:00 BMI result Body Mass Index 45.0 Appearing in no acute distress lung sounds are clear to auscultation heart regular rate rhythm, clear S1, S2 positive bowel sounds, abdomen is soft, nontender neuro patient is alert x3, no focal deficits Objective Data Active Medications Acetaminophen (Acetaminophen 325 Mg Tablet) 650 mg PO Q6H PRN PRN Reason: Pain, Mild (Pain Scale 1-3), fever or headache Albuterol/Ipratropium (Albuterol/Iprat 2.5/0.5mg 3 Ml Ampul.Neb) 3 ml INHALE RQ4H WHILE AWAKE [facility] Last Admin: 01/26/24 07:29 Dose: 3 ml Documented By: ROSA M Albuterol/Ipratropium (Albuterol/Iprat 2.5/0.5mg 3 Ml Ampul.Neb) 3 ml INHALE RQ4H WHILE AWAKE PRN PRN Reason: Shortness of Breath/Wheezing Last Admin: 01/23/24 04:55 Dose: 3 ml Calcium Carbonate (Calcium Carbonate 750 Mg Tab.Chew) 750 mg PO Q4H PRN PRN Reason: Heartburn Enoxaparin Sodium (Enoxaparin Sodium 40 Mg/0.4 Ml Syringe) 40 mg SUBCUT Q24H [facility] Last Admin: 01/25/24 10:17 Dose: 40 mg Documented By: JOE Famotidine (Famotidine 20 Mg Tablet) 20 mg PO DAILY [facility] Last Admin: 01/25/24 10:17 Dose: 20 mg Documented By: JOE Furosemide (Furosemide 40 Mg Tablet) 40 mg PO DAILY [facility]; Protocol Last Admin: 01/25/24 10:16 Dose: 40 mg Documented By: JOE Guaifenesin (Guaifenesin 200 Mg/10 Ml 10 Ml Liquid) 10 ml PO Q4H PRN PRN Reason: Cough Last Admin: 01/26/24 04:47 Dose: 10 ml Documented By: KILEY Hydrochlorothiazide (Hydrochlorothiazide 25 Mg Tablet) 25 mg PO DAILY [facility]; Protocol Last Admin: 01/25/24 10:17 Dose: 25 mg Documented By: JOE Hydrochlorothiazide (Hydrochlorothiazide 25 Mg Tablet) 25 mg PO DAILY [facility]; Protocol Last Admin: 01/25/24 10:17 Dose: 25 mg Documented By: JOE Magnesium Hydroxide (Milk Of Magnesia 30 Ml Oral.Susp) 30 ml PO DAILY PRN PRN Reason: Constipation Melatonin (Melatonin 3 Mg Tablet) 6 mg PO BEDTIME PRN PRN Reason: Insomnia Methylprednisolone Sodium Succinate (Methylprednisolone Sod Succ 40 Mg/Ml Vial) 40 mg IVPUSH Q12H [facility] Last Admin: 01/26/24 04:47 Dose: 40 mg Documented By: KILEY Nicotine (Nicotine 21 Mg Patch.Td24) 21 mg TRANSDERMA DAILY [facility] Last Admin: 01/25/24 10:19 Dose: 21 mg Documented By: JOE Polyethylene Glycol (Polyethylene Glycol 3350 17 Gm Powd.Pack) 17 gm PO BEDTIME [facility] Last Admin: 01/25/24 19:43 Dose: 17 gm Documented By: MICHAEL Sodium Chloride (0.9 % Sodium Chloride Flush 3 Ml Syringe) 3 ml IVFLUSH QSHIFT [facility] Last Admin: 01/25/24 23:59 Dose: 3 ml Documented By: KILEY Labs 01/23/24 05:26 01/23/24 05:26 Assessment and Plan (1) Acute on chronic respiratory failure with hypoxia and hypercapnia: Status: Acute Plan 58-year-old male with a PMH significant for?done COPD, 30+ pack-year smoker currently smoking about 1 pack daily and working on quitting, KIRILL pending CPAP, chronic lower leg edema on Lasix, and GERD admitted for acute COPD exacerbation with acute hypoxemic hypercapneic respiratory failure. Rapid response called 01/22/24 at 1930, pt tx to ICU for bipap, off bipap and tx back to med/tele at 0600 Acute hypoxemic and hypercarbic respiratory failure secondary to COPD exacerbation and KIRILL Initially required bipap weaned to oxymask on NC. cxr shows small airways disease, no pneumonia Negative RPP Continue IV Solu-Medrol and scheduled DuoNebs s/p IV azithromycin for pleiotropic effect guaifenesin prn Severe KIRILL s/p bipap while in the ICU awaiting [facility] to bring machine GERD continue famotidine Cigarette smoker Discussed the importance of smoking cessation NRT Morbid obesity. BMI 45.1 Discussed importance of weight management as this may be contributing to worsening of other comorbidities dvt prophylaxis- lovenox full code reason for continued hospitalization:awaiting equipment Quality Stroke Does the patient have a stroke diagnosis?: No VTE Prior VTE?: No VTE Risk Level:: Medical - moderate - high VTE Device Contraindication: Treatment Not Indicated VTE Drug Contraindication: N/A - Med Ordered
[2024-01-26] MEDS: Nicotine 21 MG PATCH.TD24 TRANSDERMA (10:46)
[2024-01-26] MEDS: polyethylene glycoL 3350 17 GM POWD.PACK PO (22:32)
[2024-01-27] VITALS: BP 133/87; PULSE 92; RESP 18; TEMP 36.6; O2SAT 94
[2024-01-27 00:29] VITALS: PULSE 88; RESP 18; O2SAT 94
[2024-01-27 04:00] VITALS: PULSE 91; RESP 20; TEMP 36.8; O2SAT 93
[2024-01-27] MEDS: methylPREDNISolone Sod Succ 40 MG/ML VIAL IVPUSH (04:45)
[2024-01-27] MEDS: Albuterol/Iprat 2.5/0.5MG 3 ML AMPUL.NEB INHALE ×2 (07:22→11:21)
[2024-01-27 07:24] VITALS: PULSE 93; RESP 16; O2SAT 89
[2024-01-27 08:00] VITALS: BP 147/87; PULSE 88; RESP 20; TEMP 36.8; O2SAT 92
[2024-01-27] MEDS: Nicotine 21 MG PATCH.TD24 TRANSDERMA (09:40)
[2024-01-27] MEDS: 0.9 % Sodium Chloride Flush 3 ML SYRINGE IVFLUSH (09:40)
[2024-01-27] MEDS: Enoxaparin Sodium 40 MG/0.4 ML SYRINGE SUBCUT (09:41)
[2024-01-27] MEDS: hydroCHLOROthiazide 25 MG TABLET PO (09:42)
[2024-01-27] MEDS: Famotidine 20 MG TABLET PO (09:42)
[2024-01-27] MEDS: Furosemide 40 MG TABLET PO (09:42)
--- NOTE | 2024-01-27 10:43 | PM.DS ---
DS: Providers Provider Date of Service: 01/27/24 Date of admission: 01/22/24 10:51 Primary care physician: Leonard Boston MD DS: Diagnosis Discharge Diagnosis (1) Acute on chronic respiratory failure with hypoxia and hypercapnia: Status: Acute DS: Summary Hospital Course Hospital Course: from initial hpi: 58-year-old male with a PMH significant for?done COPD, 30+ pack-year smoker currently smoking about 1 pack daily and working on quitting, KIRILL pending CPAP, chronic lower leg edema on Lasix, and GERD presented to the ED this morning for evaluation of sob and productive cough with clear sputum ongoing x3 days. He cites humidity as a trigger for symptoms. 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 Denies fevers, chills, st, congestion, abd pain, n/v/d, urinary symptoms, lightheadedness, or chest pain. This morning sob worsened both at rest and with exertion prompting visit to the ED. On arrival, oximetry 75% on RA with expiratory wheezing and respiratory distress noted. Patient placed on bipap, given duonebs, iv methylprednisolone, and iv mag with some improvement. Has been weaned to 6L via oxymask maintaining oximetry 90-92%, down to 88% when talking. He is tachypneic, tachycardic. No leukocytosis. Renal function and lytes wnl. VBG about baseline with ph 7.32, pCO2 showing chronic hypercapnea at 68 and bicarb 35. Lactic acid 1.6. Negative for covid, flu, rsv. CXR shows bronchial wall thickening, no focal consolidation. He will be admitted for further management of acute COPD exacerbation with acute hypoxemic hypercapneic respiratory failure. hospital course: Patient was admitted for acute hypoxic and hypercapnic respiratory failure secondary to COPD with acute decompensation and obstructive sleep apnea. Was initially requiring BiPAP and weaned to OxyMask and then to nasal cannula. Was treated with IV steroids and bronchodilators and azithromycin. Returned to baseline. For severe KIRILL requiring BiPAP his home CPAP will be switched to BiPAP. For GERD was continued on Pepcid. For morbid obesity weight loss recommended. Patient is back to baseline and will be discharged home. He will continue prednisone taper. Time Attestation Discharge Coordination Time (in mins): 34 Quality: Safe Use of Opioids Does Pt have an Active Cancer Diagnosis on the Problem List?: No Quality: Stroke Does the patient have a stroke diagnosis?: No Physical Exam Vital Signs: Vital Signs: Last Vital Signs Temp 98.2 F 01/27/24 08:00 Pulse 88 01/27/24 08:00 Resp 20 01/27/24 08:00 BP 147/87 H 01/27/24 08:00 Pulse Ox 92 01/27/24 08:00 O2 Del Method Nasal Cannula 01/27/24 08:00 O2 Flow Rate 2 01/27/24 08:00 FiO2 28 01/25/24 04:00 BMI result Body Mass Index 45.0 Appearing in no acute distress lung sounds are clear to auscultation heart regular rate rhythm, clear S1, S2 positive bowel sounds, abdomen is soft, nontender neuro patient is alert x3, no focal deficits Discharge Plan Discharge Anticipated Discharge Date/Time: 01/27/24 10:42 Patient Disposition: Home Health Service Discharge Diagnosis: Acute hypoxemic hypercarbic respiratory failure COPD Severe obstructive sleep apnea Referrals: Leonard Boston MD [Primary Care Provider] - 1 Week Jose M Braden MD [Physician] - 1 Week Discharge Medications: New prednisone 10 mg tablet See Taper PO DIRECTED Qty: 30 0RF Taper: Prednisone 40 mg daily for 3 Days and 0 Hour 30 mg daily for 3 Days and 0 Hour 20 mg daily for 3 Days and 0 Hour 10 mg daily for 3 Days and 0 Hour Rx Instructions: see taper instructions (DME) CPAP Machine/Device Device See Rx Instructions .Route Qty: 1 0RF Rx Instructions: As directed. Auto cpap 5-20. with all supplies Length of need lifetime Continued Anoro Ellipta 62.5-25 mcg/actuation blister with device 1 inh inhalation DAILY 30 Days Qty: 1 6RF hydrochlorothiazide 25 mg tablet 25 mg PO DAILY ipratropium-albuterol 0.5 mg-3 mg(2.5 mg base)/3 mL solution for nebulization 3 ml inhalation Q4H PRN (Reason: wheezing) acetaminophen 500 mg Tablet 1,000 mg PO DAILY PRN (Reason: Pain) polyethylene glycol 3350 [Miralax] 17 gram/dose Powder 17 g PO BEDTIME albuterol sulfate 90 mcg/actuation HFA aerosol inhaler 2 inh inhalation Q4H PRN (Reason: shortness of breath or wheezing) nicotine 21 mg/24 hr Patch 24 Hour 21 mg transdermal DAILY Qty: 28 0RF famotidine 20 mg Tablet 20 mg PO DAILY Qty: 30 0RF furosemide 40 mg tablet 40 mg PO DAILY 30 Days Qty: 30 6RF Combivent Respimat 20-100 mcg/actuation mist 1 puff inhalation Q6H 30 Days Qty: 4 6RF Discharge Orders: Discharge Order (Routine); Ordered 01/27/24 Ordered By: Julio César Finley Diet: Advance to usual diet Activity on Discharge: As tolerated Stand Alone Forms: Patient Portal Discharge page Print Language: Barbadian Care Plan Goals: Use CPAP at bedtime and during naps Health Concerns: Acute hypoxemic hypercarbic respiratory failure COPD Severe obstructive sleep apnea Plan of Treatment: Follow-up with primary care provider as needed Follow-up with [facility] for management of obstructive sleep apnea and CPAP machine take all medications as prescribed Assessment: See discharge summary
--- NOTE | 2024-01-27 11:20 | P.F2F_ITS ---
Service Date Service Date: 01/27/24 Encounter Date of encounter: 01/27/24 Reasons for Services Signs and symptoms assessed: weakness, sob on exertion Reason for nursing home: medication management, medication treatment and teach disease management Homebound: Leaving the home is medically contraindicated at this time without the asist of a device and/or another person due th the listed conditions above and below. Reason homebound: shortness of breath with minimal effort Certification: Based on the above findings, I certify that this patient is confined to the home and needs intermittent nursing home care, physical therapy and/or speech therapy, or continues to need occupational therapy. The patient is under my care, and I have initiated the establishment of the plan of care. The patient will be followed by a physician who will periodically review the plan of care. Time Spent With Patient Time: Total time managing care of this patient today ____ minutes.
--- NOTE | 2024-01-27 11:24 | MHC.CM.PN ---
PT MEDICALLY CLEARED FOR DC HOME W/NEW BIPAP AND RESUMP OF HOME O2 W/LINCARE, VNA FOR SN ORDERED AND WILL LIKELY BE [facility], CM WILL CONT TO FOLLOW DC NEEDS.
[2024-01-27 11:30] VITALS: PULSE 88; RESP 16; O2SAT 94
== END 2024-01-27 11:35 | disposition home health service (06) | DRG 190 ==
LOC: HO.ED 09:26 → HO.EDOVER 11:05 → HO.S3 12:36 → HO.IMC 16:20 → HO.ICU 19:48 → HO.IMC 01-23 08:08
PROVIDERS: Internal Medicine; Physician Assistant Medical; Admitting Provider Physician Assistant; Emergency Provider Internal Medicine; PCP Internal Medicine Medical Oncology; Visit Provider Internal Medicine
DX: J44.1 Chronic obstructive pulmonary disease with (acute) exacerbation (principal); J96.01 Acute respiratory failure with hypoxia; J96.02 Acute respiratory failure with hypercapnia; Z68.42 Body mass index [BMI] 45.0-49.9, adult; F17.210 Nicotine dependence, cigarettes, uncomplicated; Z71.6 Tobacco abuse counseling; E66.01 Morbid (severe) obesity due to excess calories; G47.33 Obstructive sleep apnea (adult) (pediatric); K21.9 Gastro-esophageal reflux disease without esophagitis; Z20.822 Contact with and (suspected) exposure to COVID-19; Z79.899 Other long term (current) drug therapy
CPT/HCPCS: 0241U; 36415; 36600; 71045; 80053; 82803; 82947; 83605; 83735; 84100; 84484; 85025; 87040; 87633; 93005; 94640; 94660; 94799; 99285; J0456; J0696; J1170; J1650; J1940; J2919; J3475

== ENCOUNTER → 2024-01-22 04:04 | Outpatient (BNV) | payer OTHER, SELFPAY | PROVIDERS: Admitting Provider Physician Assistant; Emergency Provider Internal Medicine; Visit Provider Internal Medicine Cardiovascular Disease | DX: R06.02 Shortness of breath (principal); R00.0 Tachycardia, unspecified | CPT/HCPCS: 93010 ==

== ENCOUNTER → 2024-01-22 10:51 | Outpatient (BNV) | payer OTHER, SELFPAY | PROVIDERS: Admitting Provider Physician Assistant; Emergency Provider Internal Medicine; Visit Provider Physician Assistant | DX: J96.21 Acute and chronic respiratory failure with hypoxia (principal); J96.22 Acute and chronic respiratory failure with hypercapnia; J44.1 Chronic obstructive pulmonary disease with (acute) exacerbation | CPT/HCPCS: 99223; 99231; 99232; 99239; 99499; G0180 ==

== ENCOUNTER → 2024-01-22 10:51 | Outpatient (BNV) | payer OTHER, SELFPAY | PROVIDERS: Admitting Provider Physician Assistant; Emergency Provider Internal Medicine; PCP Internal Medicine Medical Oncology; Visit Provider Physician Assistant Medical | DX: J44.1 Chronic obstructive pulmonary disease with (acute) exacerbation (principal); J96.01 Acute respiratory failure with hypoxia | CPT/HCPCS: 99291 ==

== ENCOUNTER 2024-02-01 14:31 | Outpatient (AMB) | payer OTHER, SELFPAY ==
[2024-02-01 14:47] VITALS: BP 136/82; PULSE 104; O2SAT 96; BMI 41.6
--- NOTE | 2024-02-01 14:47 | A.OFFVIS_ITS ---
Vital Signs 02/01/24 14:47 Height 5 ft 10 in Weight 289 lb 14.526 oz BMI 41.6 BP 136/82 Blood Pressure Location Rt brachial Position Sitting Pulse 104 H Pulse Source Doppler Pulse Oximetry (%) 96 Oxygen Delivery Method Nasal Cannula Oxygen Flow Rate 2 Intake Visit Reasons: [facility] on 12/11 for COPD Exacerbation Hypoxia Allergies No Known Allergies Allergy (Unknown, Verified 01/22/24 03:56) HPI HPI [facility] on 12/11 for COPD Exacerbation Hypoxia: Details: 58-year-old gentleman recent 30+ pack-year smoker, quit 04/2023 now followed for pulmonary emphysema, KIRILL now on CPAP, and dyspnea on exertion. After the last office visit patient has been hospitalized [facility] for acute hypercapnic respiratory failure and finally got his CPAP. He is now using it with reasonable control of his symptoms. He continues on Anoro, duo nebs, and Combivent with reasonable control of his underlying COPD. [facility] Medical History Smoker COPD (chronic obstructive pulmonary disease) HTN (hypertension) Acid reflux Diverticulitis Surgical History Hx of colonoscopy History of colostomy reversal H/O colostomy Family History Mother Diabetes Arthritis Sleep apnea COPD (chronic obstructive pulmonary disease) Father Stomach cancer Diabetes Arthritis Sister Arthritis Social History Household Members: Spouse and Children Housing: Apartment Do you presently have visiting nurse or other home services: Yes Alcohol intake: current Alcohol intake frequency: holidays/special occasions only Alcohol type: beer Patient Tobacco Use Status: Current everyday Tobacco user Tobacco use type: Cigarette Cigarette Packs Per Day: 1 Cigarettes Per Day: 13 Years Smoked: 35 e-Cigarette/Vaping Use: Never Used Second Hand Smoke Exposure: No service: No Current occupational status: employed 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 Review of Systems Const Denies daytime sleepiness, Denies excessive sweating, Denies fatigue, Denies fever(s), Denies lethargy, Denies malaise, Denies night sweats, Denies snoring and Denies weight loss Eyes Denies blurry vision and Denies itchy eyes ENT Denies nasal congestion, Denies post nasal drip, Denies sinus pain, Denies sinus pressure and Denies other ( Thrush) Card Denies chest pain, Denies pedal edema, Denies dyspnea, Denies orthopnea and Denies paroxysmal nocturnal dyspnea Resp Denies cough, Denies hemoptysis, Denies excessive phlegm production, Denies dyspnea, Denies snoring and Denies wheezing GI Denies abdominal pain and Denies heartburn Musc Denies myalgias, Denies arthralgias and Denies joint swelling Skin/Breast Denies rash Neuro Denies memory loss and Denies seizure-like activity Psych Denies abnormal sleep pattern, Denies anxiety and Denies memory loss Endo Denies excessive sweating, Denies fatigue and Denies heat intolerance Liam/Lymph Denies easy bruising Aller/Immun Denies itchy eyes, Denies seasonal rhinorrhea and Denies wheezing Physical Exam Vital Signs: Last Vital Signs Pulse 104 H 02/01/24 14:47 BP 136/82 02/01/24 14:47 Pulse Ox 96 02/01/24 14:47 Oxygen Delivery Method Nasal Cannula 02/01/24 14:47 Oxygen Flow Rate 2 02/01/24 14:47 BMI result Body Mass Index 41.6 Const General: no acute distress and alert Nutritional Appearance: obese Orientation/consciousness: Other orientation findings ( oriented) HEENT Head: Yes atraumatic Eyes General: appearance normal, both eyes and all related structures Sclerae: sclerae normal EOM: EOMs intact bilaterally Neck Neck: Yes supple Lymphatic: no lymphadenopathy noted Resp Effort & Inspection: normal respiratory effort and no use of accessory muscles Auscultation: clear to auscultation bilaterally Cardio Rate: regular rate Rhythm: regular rhythm Heart sounds: no gallops, no murmurs and no rubs Skin General skin exam: other ( warm) Extrem General: No clubbing, No cyanosis and No edema Assessment & Plan Assessment & Plan (1) Pulmonary emphysema: Code(s): J43.9 - Emphysema, unspecified Category: Medical Plan: Well controlled on Anoro, duo nebs, and Combivent. Continue current regimen (2) KIRILL (obstructive sleep apnea): Code(s): G47.33 - Obstructive sleep apnea (adult) (pediatric) Category: Medical Plan: Now on CPAP with improvement in symptoms. Will monitor compliance/therapeutic report for the next months, may require titration study. Coding Level of Care Code Est Pt Level 4 (37249) Diagnoses Pulmonary emphysema J43.9 KIRILL (obstructive sleep apnea) G47.33
== END 2024-02-01 15:09 | disposition home or self-care (01) ==
PROVIDERS: PCP Internal Medicine Medical Oncology; Visit Provider Internal Medicine Pulmonary Disease
DX: J43.9 Emphysema, unspecified (principal); G47.33 Obstructive sleep apnea (adult) (pediatric)
CPT/HCPCS: 99214

== ENCOUNTER → 2024-02-01 14:31 | Outpatient (BNVA) | payer OTHER, SELFPAY | PROVIDERS: PCP Internal Medicine Medical Oncology; Visit Provider Internal Medicine Pulmonary Disease ==

== ENCOUNTER 2024-02-13 02:00 | Inpatient (IN) | payer OTHER, SELFPAY ==
[2024-02-13] VITALS (13 sets, daily range): BP systolic 129–156; BP diastolic 58–87; PULSE 81–117; RESP 16–25; TEMP 36.3–36.8; O2SAT 91–100; BMI 41.5; BMI 42.7
--- NOTE | ~2024-02-13 | CT_ITS ---
EXAMINATION: CT ANGIOGRAM OF THE CHEST WITH AND WITHOUT CONTRAST (CT PULMONARY ANGIOGRAM FOR PE) CLINICAL INFORMATION: Reason for Exam chest pain, dyspnea COMPARISON: None available. TECHNIQUE: Prior to contrast administration, noncontrast localization images were obtained. Subsequently, multidetector volumetric imaging was performed from the thoracic inlet to below the diaphragms following the administration of 85 mL Omnipaque 350 intravenous contrast. No contrast reaction reported Sagittal, coronal, and MIP oblique sagittal reformatted images were obtained on the CT workstation, uploaded to PACS, and reviewed. This CT examination was performed using dose optimization techniques as appropriate, variously including the following: *Automated exposure control *Adjustment of mA and/or kV according to patient size (this includes techniques or standardized protocols for targeted exams where dose is matched to indication/reason for exam; i.e. extremities or head) *Use of iterative reconstruction technique Total exam dose-length product 422 mGy-cm FINDINGS: QUALITY OF STUDY/CONTRAST BOLUS: Satisfactory. PULMONARY ARTERIES: No pulmonary emboli. THORACIC AORTA: No aneurysm. LUNG: There is basilar atelectatic change and/or scarring. The lungs are otherwise clear. PLEURA: No pleural effusion or pneumothorax. MEDIASTINUM: Normal heart size. No pericardial effusion. No hilar or mediastinal lymphadenopathy. No evidence of septal bowing or right heart strain. CORONARY ARTERY CALCIFICATION: None visualized on this study. CHEST WALL/AXILLA: No axillary or internal mammary lymphadenopathy. OSSEOUS STRUCTURES: No acute or suspicious osseous abnormality. UPPER ABDOMEN: Unremarkable. No reflux of contrast into the hepatic veins to suggest elevated right heart pressures. CT/CT angio chest PE protocol IMPRESSION: No evidence of pulmonary embolism. Bibasilar atelectatic change and/or scarring. VTE: negative.
--- NOTE | ~2024-02-13 | XR_ITS ---
EXAMINATION: XR CHEST CLINICAL INFORMATION: Dyspnea. COMPARISON: 01/22/2024 TECHNIQUE: Frontal view of the chest was obtained. FINDINGS: The cardiomediastinal silhouette is stable. There is lingular and right middle lobe scarring. There is no definitive focal consolidation or pleural effusions. The bony structures and soft tissues are unremarkable. XR/XR chest 1V IMPRESSION: Lingular and right middle lobe scarring. No definitive focal consolidation or pleural effusions.
--- NOTE | 2024-02-13 02:10 | ECG_ITS ---
Test Reason : DYSPNEA Blood Pressure : / mmHG Vent. Rate : 105 BPM Atrial Rate : 105 BPM P-R Int : 158 ms QRS Dur : 082 ms QT Int : 362 ms P-R-T Axes : 097 089 091 degrees QTc Int : 478 ms Artifact in tracing Sinus tachycardia Due to artifact, cannot assess ST segments When compared with ECG of 22-JAN-2024 04:05, No significant change was found Referred By: Roxann Robins Electronically Signed By:RANJAN WANG
[2024-02-13] MEDS: Albuterol Sulfate 5 MG, Albuterol/Iprat 2.5/0.5MG 3 ML 3 ML INHALE (02:19)
--- NOTE | 2024-02-13 02:24 | ED_ITS ---
HPI - SOB/Dyspnea General Chief Complaint: Dyspnea Stated Complaint: SOB Time Seen by Provider: 02/13/24 02:17 Source: patient, family and old records reviewed Mode of arrival: ambulatory Limitations: no limitations History of Present Illness ED Provider: MANJINDER MANCILLA Narrative: 58 yo male with PMH of COPD on 2L home O2, quit smoking as of start of January but smoked for 30+ years, KIRILL, chronic leg edema on lasix, GERD, chronic respiratory failure, diverticulitis - just admitted and treated here with DC on 01/26 for COPD exacerbation was initially on Bipap last admission but quickly transitioned to the floor. He notes he just finished his prednisone taper yesterday. Here with c/o dyspnea and chest tightness along with his usual sputum starting Tuesday AM. He tried several nebs without relief. No fevers. MD elicited complaint: shortness of breath and cough Pertinent past history: COPD and asthma Onset (ago): hour(s) (18) Context: recent illness Timing: progressively worsening Severity: severe Exacerbating factors: exertion and coughing Relieving factors: oxygen, rest and bronchodilators Known history of: COPD Associated symptoms: cough, wheezing and sputum production Treatment prior to arrival: oxygen and bronchodilator Related Data Home Medications ?Medication ?Instructions ?Recorded ?Confirmed acetaminophen 500 mg tablet 1,000 mg PO DAILY PRN Pain 12/09/23 01/22/24 albuterol sulfate 90 mcg/actuation 2 inh inhalation Q4H PRN shortness 12/09/23 01/22/24 aerosol inhaler of breath or wheezing polyethylene glycol 3350 17 17 g PO BEDTIME 12/09/23 01/22/24 gram/dose oral powder (Miralax) hydrochlorothiazide 25 mg tablet 25 mg PO DAILY 01/22/24 01/22/24 ipratropium 0.5 mg-albuterol 3 mg 3 ml inhalation Q4H PRN wheezing 01/22/24 01/22/24 (2.5 mg base)/3 mL nebulization soln Previous Rx's ?Medication ?Instructions ?Recorded furosemide 40 mg tablet 40 mg PO DAILY 30 days #30 tabs 11/01/23 ipratropium 20 mcg-albuterol 100 1 puff inhalation Q6H 30 days #4 11/01/23 mcg/actuation mist for inhalation grams (Combivent Respimat) famotidine 20 mg tablet 20 mg PO DAILY #30 tabs 12/12/23 nicotine 21 mg/24 hr daily 21 mg transdermal DAILY #28 ea 12/12/23 transdermal patch umeclidinium 62.5 mcg-vilanterol 1 inh inhalation DAILY 30 days #1 01/04/24 25 mcg/actuation powdr for ea inhalation (Anoro Ellipta) CPAP (CPAP Machine/Device) #1 ea 01/24/24 prednisone 10 mg tablet See Taper PO DIRECTED #30 tabs 01/24/24 Allergies Allergy/AdvReac Type Severity Reaction Status Date / Time No Known Allergies Allergy Unknown Verified 02/13/24 02:04 Review of Systems 2 Review of Systems: Constitutional : No Fever, No Chills ENT/Mouth : No Hoarseness, No sore throat, No Rhinorrhea Eyes: No Redness, No Discharge, No Vision Changes Cardiovascular : No Chest Pain, positive SOB, positive Dyspnea on Exertion, No Edema Respiratory : positive Cough, pos Sputum, positive Wheezing, Gastrointestinal : No Nausea, No Vomiting, No Diarrhea, No abdominal Pain Genitourinary : No Dysuria, No Hematuria Musculoskeletal : No joint pain, No Myalgias Skin : No rash Neuro : No Weakness, No Numbness, No Headache Psych : No anxiety, depression Heme/Lymph: No Bruising, No Bleeding Endocrine : No Polyuria, No Polydipsia All other systems reviewed and are negative [facility] Past Medical History Attestation statement: The following information was validated with the patient. Source: old records reviewed Medical History KIRILL (obstructive sleep apnea) Smoker COPD (chronic obstructive pulmonary disease) HTN (hypertension) Acid reflux Diverticulitis Surgical History Hx of colonoscopy History of colostomy reversal H/O colostomy Family History Family History Mother Diabetes Arthritis Sleep apnea COPD (chronic obstructive pulmonary disease) Father Stomach cancer Diabetes Arthritis Sister Arthritis Social History Social History Household Members: Spouse and Children Housing: Apartment Do you presently have visiting nurse or other home services: Yes Alcohol intake: former Patient Tobacco Use Status: Current everyday Tobacco user Tobacco use type: Cigarette Cigarette Packs Per Day: 1 Cigarettes Per Day: 13 Years Smoked: 35 Smoked in Last 30 Days: Yes e-Cigarette/Vaping Use: Never Used Second Hand Smoke Exposure: No Use of substances other than those prescribed or required for medical reasons: No Advance Directives: No Advance Directives Information Provided: No service: No Current occupational status: employed Current occupation: [employer] Physical Exam 2 Vital Signs: Vital Signs: Last Vital Signs Temp 98.2 F 02/13/24 02:04 Pulse 106 H 02/13/24 02:19 Resp 22 H 02/13/24 02:19 BP 147/82 H 02/13/24 02:04 Pulse Ox 93 02/13/24 02:04 O2 Del Method Nasal Cannula 02/13/24 02:04 Oxygen Flow Rate 2 02/13/24 02:04 BMI result Body Mass Index 41.5 Appearance: Alert. Oriented X3. Mild acute distress. Eyes: Pupils equal, round and reactive to light. ENT: Pharynx normal. Neck: Normal inspection. Neck supple. CVS: tachycardic heart rate and rhythm. Pulses normal. Respiratory:Mild respiratory distress tachypnea, speaking in short phrases. Breath sounds diminished and diffuse insp and exp wheezes throughout Abdomen: Soft and nontender. Skin: Skin warm and dry. Normal skin color. Normal skin turgor. Extremities: No lower extremity edema. No calf ttp Neuro: Oriented X 3. No motor deficit. No sensory deficit. Medications Administered Generic Name Dose Route Start Last Admin Trade Name Freq PRN Reason Stop Dose Admin Azithromycin 500 mg/ Sodium 250 mls @ 125 mls/hr 02/13/24 02:18 02/13/24 02:37 Chloride IV 02/13/24 04:17 125 mls/hr ONCE ONE Administration Discontinued Medications Generic Name Dose Route Start Last Admin Trade Name Freq PRN Reason Stop Dose Admin Albuterol Sulfate 5 mg/ 0 mg 02/13/24 02:16 02/13/24 02:19 Albuterol/Ipratropium 3 ml INHALE 02/13/24 02:17 2.5 each ONCE ONE Administration Magnesium Sulfate 2 gm in 50 mls @ 150 mls/hr 02/13/24 02:10 02/13/24 03:04 Magnesium Sulfate/H2o IV 02/13/24 02:29 Infused ONCE ONE Infusion Methylprednisolone Sodium Succinate 60 mg 02/13/24 02:10 02/13/24 02:37 Methylprednisolone Sod Succ 125 Mg/2 Ml Vial IVPUSH 02/13/24 02:11 60 mg ONCE ONE Administration Medical Decision Making Medical Decision Making [facility] Narrative: 58 yo male with PMH of COPD on 2L home O2, quit smoking as of start of January but smoked for 30+ years, KIRILL, chronic leg edema on lasix, GERD, chronic respiratory failure, diverticulitis here with worsening dyspnea and wheezing at this time will need basic labs, cultures, IV steroids, IV magnesium, CXR and IV azithromycin. Anticipate admission given recent steroid taper and use. He does not require NIPPV at this time but will monitor his VBG. Differential Diagnosis Differential Diagnoses: The differential diagnosis associated with the presentation includes asthma COPD URI Admission/Observation Consideration of admission/observation: Escalation of care including admission/observation considered recently just completed taper - will admit for further steroids and management Consult Healthcare Provider Management of the patient was discussed with: Hospitalist (will admit) Lab Data [facility] Lab Attestation statement: I reviewed the patient's lab results. 02/13/24 02:32 02/13/24 02:33 Labs: Lab Results 02/13/24 02/13/24 02/13/24 Range/Units 02:32 02:33 02:36 WBC 9.0 (4.8-10.8) X10*3/uL RBC 5.13 (4.60-5.80) X10*6/uL Hgb 15.3 (14.0-18.0) g/dl Hct 47.3 (42.0-52.0) % MCV 92.2 (80.0-98.0) fL MCH 29.8 (27.0-33.0) pg MCHC 32.3 (31.0-36.0) g/dl RDW 15.7 (11.0-16.0) % Plt Count 273 (160-400) X10*3/uL MPV 9.8 (9.4-12.4) fL Immature Gran % (Auto) 0.3 (0.0-0.4) % Neut % (Auto) 61.6 (45-73) % Lymph % (Auto) 26.9 (20-40) % Taylor % (Auto) 6.8 (2-11) % Eos % (Auto) 4.0 (0-4) % Baso % (Auto) 0.4 (0-2) % Lymph # (Auto) 2.4 (1.2-4.9) X10*3/uL Taylor # (Auto) 0.6 (0.1-1.2) X10*3/uL Eos # (Auto) 0.4 (0.0-0.4) X10*3/uL Baso # (Auto) 0.0 (0.0-0.2) X10*3/uL Abs Immat Gran (auto) 0.03 (0.00-0.03) X10*3/uL Absolute Neuts (auto) 5.6 (2.0-8.3) x10*3/uL Absolute Nucleated RBC 0.000 (0.0-0.012) X10*3/uL Nucleated RBC % (auto) 0.0 (0.0-0.2) /100WBC VBG pH 7.38 (7.32-7.43) VBG pCO2 57 mmHg VBG pO2 85 mmHg VBG HCO3 34 H (22-26) mmol/L VBG O2 Saturation 98.0 % VBG Base Excess 7.2 mmol/L Sodium 139 (135-145) mmol/L Potassium 4.1 (3.3-5.1) mmol/L Chloride 101 (96-108) mmol/L Carbon Dioxide 27 (22-29) mmol/L Anion Gap 15 (12-20) BUN 9 (9-16) mg/dL Creatinine 0.88 (0.5-1.4) mg/dL Estim Creat Clear Calc 127.6 Estimated GFR > 60 Random Glucose 116 H (60-115) mg/dL Lactic Acid 1.2 (0.5-2.0) mmol/L Calcium 9.5 (8.4-10.2) mg/dL Magnesium 2.1 (1.6-2.6) mg/dL Total Bilirubin 0.2 (0.0-1.0) mg/dL Direct Bilirubin < 0.2 (0.0-0.5) mg/dL AST 18 (5-37) U/L ALT 30 (0-40) U/L Alkaline Phosphatase 125 H (39-117) U/L Troponin I High Sens 4.5 (<3.5-35.0) ng/L B-Natriuretic Peptide < 10 (<100) pg/mL Total Protein 7.5 (6.5-8.0) g/dL Albumin 3.5 (3.5-5.0) g/dL ABG Data Attestation ABG: I personally reviewed and interpreted this ABG as follows: Interpretation: no retention Independent Interpretation I performed an independent interpretation of an: EKG and Plain X-Ray (no pneumonia) Interpretation: Rate:105 Rhythm: sinus tachycardia Glasco: normal Normal P waves. Normal YENNIFER. Normal QRS complex. ST T wave : normal no REYNOLD qTC: 478 prior studies: no acute ischemia The study has been interpreted contemporaneously by me. . Radiology Impression Discussion of test interpretation with radiology: I have reviewed the radiologist's reading. Independent Historian Clinical information obtained from an independent historian. History obtained from or confirmed by: Spouse External Record Review External record reviewed: Inpatient record Critical Care Time Critical Care Time Critical Care Time: Yes Total Critical Care Time: 45 Attestation: hour long neb, IV magnesium, review of records, repeat assessments, admission. I attest to this time spent taking care of the patient Discharge Plan Discharge Clinical Impression: Acute exacerbation of chronic obstructive airways disease Patient Disposition: Admitted As Inpatient Print Language: Upper Sorbian
[2024-02-13] MEDS: Magnesium Sulfate/H2O 2 GM/50 ML PIGGYBACK IV (02:37)
[2024-02-13] MEDS: methylPREDNISolone Sod Succ 125 MG/2 ML VIAL 60 MG IVPUSH (02:37)
[2024-02-13] MEDS: Azithromycin 500 MG in 0.9 % Sodium Chloride 250 ML 125 MG IV (02:37)
[2024-02-13 02:40] LABS: MANUAL DIFF FLAG NO
[2024-02-13 02:41] LABS: Basophils Percent Auto 0.4 % (0-2); Eosinophils Absolute Auto 0.4 X10*3/uL (0.0-0.4); Hematocrit 47.3 % (42.0-52.0); Hemoglobin 15.3 g/dl (14.0-18.0); Imm Gran Abs Auto 0.03 X10*3/uL (0.00-0.03); Imm Gran Pct Auto 0.3 % (0.0-0.4); Lymphocytes Absolute Auto 2.4 X10*3/uL (1.2-4.9); Lymphocytes Percent Auto 26.9 % (20-40); Mean Corpuscular HGB Conc 32.3 g/dl (31.0-36.0); Mean Corpuscular Hemoglobin 29.8 pg (27.0-33.0); Mean Corpuscular Volume 92.2 fL (80.0-98.0); Mean Platelet Volume 9.8 fL (9.4-12.4); Monocytes Absolute Auto 0.6 X10*3/uL (0.1-1.2); Monocytes Percent Auto 6.8 % (2-11); Neutrophils Absolute Auto 5.6 x10*3/uL (2.0-8.3); Neutrophils Percent Auto 61.6 % (45-73); Platelet Count 273 X10*3/uL (160-400); Red Blood Count 5.13 X10*6/uL (4.60-5.80); Red Cell Distribution Width 15.7 % (11.0-16.0)
[2024-02-13 02:43] LABS: Venous Blood Gas Refer to POC result
[2024-02-13 02:44] LABS: VBG Base Excess 7.2 mmol/L; VBG HCO3 34 mmol/L (22-26); VBG pCO2 57 mmHg; VBG pH 7.38 (7.32-7.43); VBG pO2 85 mmHg
[2024-02-13 02:55] LABS: Lactic Acid 1.2 mmol/L (0.5-2.0)
[2024-02-13 03:02] LABS: Alanine Aminotransferase 30 U/L (0-40); Albumin Level 3.5 g/dL (3.5-5.0); Alkaline Phosphatase 125 U/L (39-117); Anion Gap 15 (12-20); Aspartate Amino Transferase 18 U/L (5-37); Bilirubin Direct < 0.2 mg/dL (0.0-0.5); Bilirubin Total 0.2 mg/dL (0.0-1.0); Blood Urea Nitrogen 9 mg/dL (9-16); Calcium 9.5 mg/dL (8.4-10.2); Carbon Dioxide 27 mmol/L (22-29); Chloride 101 mmol/L (96-108); Creatinine Clr Calc Pharmacy 127.6; Estimated Glomerular Filt Rate > 60; Glucose Random 116 mg/dL (60-115); Magnesium 2.1 mg/dL (1.6-2.6); Potassium 4.1 mmol/L (3.3-5.1); Sodium 139 mmol/L (135-145); Total Protein 7.5 g/dL (6.5-8.0)
[2024-02-13 03:03] LABS: Troponin-I High Sensitivity 4.5 ng/L (<3.5-35.0)
[2024-02-13 03:12] LABS: B Type Natriuretic Peptide < 10 pg/mL (<100)
--- NOTE | 2024-02-13 03:42 | P.HPHOSP_ITS ---
History of Present Illness Date of Service: 02/13/24 Chief Complaint: Dyspnea This is a 58-year-old male with pertinent history of chronic hypoxic respiratory failure due to COPD, hypertension, former tobacco use disorder with more than 30 pack-year smoking history, KIRILL/ohs on CPAP (pending approval for BiPAP), chronic lower leg edema, gastroesophageal reflux disease who presents to the emergency department for evaluation of dyspnea. Of note, patient was recently admitted with acute exacerbation of COPD and discharged on 01/26 with prednisone taper. Patient states he finished his taper about 9 days prior to presentation. Patient symptoms started on the day of presentation when he started having dyspnea which is worse with exertion. No orthopnea or PND. Also started having cough with clear sputum production and wheezing. He tried his home inhaler without any relief. Patient states he is compliant with his home CPAP. Also states he has been having substernal chest pain which is not relieved with rest, not exacerbated with exertion but exacerbated with cough and deep inspiration. He is awaiting approval for BiPAP currently. No fever, chills, palpitations, abdominal pain, changes in urinary or bowel habits. In the emergency department, patient with wheezing despite multiple DuoNeb treatments. Was given IV steroids Review of Systems 2 Constitutional: Constitutional: Reports fatigue Cardiovascular: Cardiovascular: Reports chest pain and Reports dyspnea on exertion Respiratory: Respiratory: Reports cough, Reports dyspnea on exertion and Reports wheezing Endocrine: Endocrine: Reports fatigue Allergic/Immunologic: Allergic/Immunologic: Reports wheezing PENDING SALE TO [facility] Medical History KIRILL (obstructive sleep apnea) Smoker COPD (chronic obstructive pulmonary disease) HTN (hypertension) Acid reflux Diverticulitis Family History Mother Diabetes Arthritis Sleep apnea COPD (chronic obstructive pulmonary disease) Father Stomach cancer Diabetes Arthritis Sister Arthritis Surgical History Hx of colonoscopy History of colostomy reversal H/O colostomy Social History Household Members: Spouse and Children Housing: Apartment Do you presently have visiting nurse or other home services: Yes Alcohol intake: former Patient Tobacco Use Status: Current everyday Tobacco user Tobacco use type: Cigarette Cigarette Packs Per Day: 1 Cigarettes Per Day: 13 Years Smoked: 35 Smoked in Last 30 Days: Yes e-Cigarette/Vaping Use: Never Used Second Hand Smoke Exposure: No Use of substances other than those prescribed or required for medical reasons: No Advance Directives: No Advance Directives Information Provided: No service: No Current occupational status: employed Current occupation: [employer] Allergies Allergy/AdvReac Type Severity Reaction Status Date / Time No Known Allergies Allergy Unknown Verified 02/13/24 02:04 Active Medications: Current Medications Acetaminophen (Acetaminophen 325 Mg Tablet) 650 mg PO Q6H PRN PRN Reason: Pain, Mild (Pain Scale 1-3), fever or headache Albuterol/Ipratropium (Albuterol/Iprat 2.5/0.5mg 3 Ml Ampul.Neb) 3 ml INHALE RQ4H WHILE AWAKE MILES Albuterol/Ipratropium (Albuterol/Iprat 2.5/0.5mg 3 Ml Ampul.Neb) 3 ml INHALE Q4H PRN PRN Reason: Wheezing Calcium Carbonate (Calcium Carbonate 750 Mg Tab.Chew) 750 mg PO Q4H PRN PRN Reason: Heartburn Enoxaparin Sodium (Enoxaparin Sodium 40 Mg/0.4 Ml Syringe) 40 mg SUBCUT Q24H MILES Azithromycin 500 mg/ Sodium (Chloride) 250 mls @ 125 mls/hr IV ONCE ONE Stop: 02/13/24 04:17 Last Admin: 02/13/24 02:37 Dose: 125 mls/hr Magnesium Hydroxide (Milk Of Magnesia 30 Ml Oral.Susp) 30 ml PO DAILY PRN PRN Reason: Constipation Melatonin (Melatonin 3 Mg Tablet) 6 mg PO BEDTIME PRN PRN Reason: Insomnia Methylprednisolone Sodium Succinate (Methylprednisolone Sod Succ 40 Mg/Ml Vial) 40 mg IVPUSH Q12H MILES Ondansetron HCl (Ondansetron Hcl 4 Mg/2 Ml Vial) 4 mg IVPUSH Q8H PRN PRN Reason: Nausea and Vomiting Sodium Chloride (0.9 % Sodium Chloride Flush 3 Ml Syringe) 3 ml IVFLUSH QSHIFT [facility] Home Medications ?Medication ?Instructions ?Recorded ?Confirmed ?Last Taken ?Type acetaminophen 500 mg tablet 1,000 mg PO DAILY PRN Pain 12/09/23 01/22/24 Unknown History albuterol sulfate 90 mcg/actuation 2 inh inhalation Q4H PRN shortness 12/09/23 01/22/24 Unknown History aerosol inhaler of breath or wheezing polyethylene glycol 3350 17 17 g PO BEDTIME 12/09/23 01/22/24 Unknown History gram/dose oral powder (Miralax) hydrochlorothiazide 25 mg tablet 25 mg PO DAILY 01/22/24 01/22/24 01/22/24 09:00 History ipratropium 0.5 mg-albuterol 3 mg 3 ml inhalation Q4H PRN wheezing 01/22/24 01/22/24 Unknown History (2.5 mg base)/3 mL nebulization soln Physical Exam 2 Vital Signs and Narrative: Vital Signs: Last Vital Signs Temp 98.2 F 02/13/24 02:04 Pulse 106 H 02/13/24 02:19 Resp 22 H 02/13/24 02:19 BP 147/82 H 02/13/24 02:04 Pulse Ox 93 02/13/24 02:04 O2 Del Method Nasal Cannula 02/13/24 02:04 Oxygen Flow Rate 2 02/13/24 02:04 BMI result Body Mass Index 41.5 Middle-aged male lying in bed in mild distress on supplemental oxygen Neck supple, no JVD Regular rate and rhythm, S1-S2 heard Bilateral wheezing appreciated Abdomen soft nontender, no guarding, no rigidity Patient is awake, alert and oriented to self, place, time and person ; no focal motor deficit Psych: Normal mood Bilateral pedal edema Results Labs 02/13/24 04:40 02/13/24 04:40 Labs: Laboratory Results - last 24 hr 02/13/24 02/13/24 02/13/24 02:32 02:33 02:36 MCV 92.2 MCH 29.8 MCHC 32.3 RDW 15.7 Plt Count 273 MPV 9.8 Immature Gran % (Auto) 0.3 Neut % (Auto) 61.6 Lymph % (Auto) 26.9 Knott % (Auto) 6.8 Eos % (Auto) 4.0 Baso % (Auto) 0.4 Lymph # (Auto) 2.4 Knott # (Auto) 0.6 Eos # (Auto) 0.4 Baso # (Auto) 0.0 Abs Immat Gran (auto) 0.03 Absolute Neuts (auto) 5.6 Absolute Nucleated RBC 0.000 Nucleated RBC % (auto) 0.0 VBG pH 7.38 VBG pCO2 57 VBG pO2 85 VBG HCO3 34 H VBG O2 Saturation 98.0 VBG Base Excess 7.2 Anion Gap 15 Estim Creat Clear Calc 127.6 Estimated GFR > 60 Random Glucose 116 H Lactic Acid 1.2 Calcium 9.5 Magnesium 2.1 Total Bilirubin 0.2 Direct Bilirubin < 0.2 AST 18 ALT 30 Alkaline Phosphatase 125 H Troponin I High Sens 4.5 B-Natriuretic Peptide < 10 Total Protein 7.5 Albumin 3.5 Imaging Radiologist's Impressions: Impressions Chest X-Ray 02/13/24 02:47 IMPRESSION: Lingular and right middle lobe scarring. No definitive focal consolidation or pleural effusions. Assessment and Plan (1) Acute exacerbation of chronic obstructive airways disease: Status: Acute Plan This is a 58-year-old male with pertinent history of chronic hypoxic respiratory failure due to COPD, hypertension, former tobacco use disorder with more than 30 pack-year smoking history, KIRILL/ohs on CPAP (pending approval for BiPAP), chronic lower leg edema, gastroesophageal reflux disease who presents to the emergency department for evaluation of dyspnea. #. Acute exacerbation of COPD in a patient with chronic hypoxemia: Will admit patient and initiate IV steroids. Scheduled and p.r.n. DuoNebs. Continue home inhaler. Initiating empiric Levaquin (recurrent hospitalization for COPD and recent use of antibiotics). #. Severe KIRILL/ohs: Continue BiPAP while in the hospital at bedtime. Patient is compliant with CPAP at home (awaiting outpatient approval for BiPAP) #. Gastroesophageal reflux disease: On famotidine #. Morbid obesity: Counseled regarding diet and exercise #. Hypertension: Continue home antihypertensives #. Chronic lower extremity edema: On Lasix Med rec pending DVT prophylaxis: Lovenox Full code Admit as inpatient and will require two night minimum hospital stay for IV steroids, monitoring of mentation with high risk for decompensation (as above), which is not possible in a lesser acute setting. Quality Stroke Does the patient have a stroke diagnosis?: No VTE Prior VTE?: No VTE Risk Level:: Medical - moderate - high VTE Device Contraindication: Treatment Not Indicated VTE Drug Contraindication: N/A - Med Ordered
[2024-02-13 03:46] LABS: Influenza A PCR NEGATIVE (Negative); Influenza B PCR NEGATIVE (Negative); Resp Syncy Virus RNA Qual PCR NEGATIVE (Negative); SARS COV2 PCR INHOUSE NEGATIVE (Negative)
[2024-02-13 04:57] LABS: MANUAL DIFF FLAG NO
[2024-02-13 04:58] LABS: Basophils Percent Auto 0.3 % (0-2); Eosinophils Absolute Auto 0.2 X10*3/uL (0.0-0.4); Eosinophils Percent Auto 1.7 % (0-4); Hematocrit 45.7 % (42.0-52.0); Hemoglobin 14.7 g/dl (14.0-18.0); Imm Gran Abs Auto 0.06 X10*3/uL (0.00-0.03); Imm Gran Pct Auto 0.6 % (0.0-0.4); Lymphocytes Absolute Auto 1.2 X10*3/uL (1.2-4.9); Mean Corpuscular HGB Conc 32.2 g/dl (31.0-36.0); Mean Corpuscular Hemoglobin 29.5 pg (27.0-33.0); Mean Corpuscular Volume 91.8 fL (80.0-98.0); Mean Platelet Volume 9.6 fL (9.4-12.4); Monocytes Absolute Auto 0.3 X10*3/uL (0.1-1.2); Monocytes Percent Auto 3.3 % (2-11); Neutrophils Absolute Auto 8.3 x10*3/uL (2.0-8.3); Neutrophils Percent Auto 82.1 % (45-73); Platelet Count 247 X10*3/uL (160-400); Red Blood Count 4.98 X10*6/uL (4.60-5.80); Red Cell Distribution Width 15.8 % (11.0-16.0); White Blood Count 10.2 X10*3/uL (4.8-10.8)
[2024-02-13 05:13] LABS: Anion Gap 13 (12-20); Blood Urea Nitrogen 10 mg/dL (9-16); Calcium 9.2 mg/dL (8.4-10.2); Carbon Dioxide 28 mmol/L (22-29); Chloride 100 mmol/L (96-108); Estimated Glomerular Filt Rate > 60; Glucose Random 172 mg/dL (60-115); Potassium 4.2 mmol/L (3.3-5.1); Sodium 137 mmol/L (135-145)
[2024-02-13] MEDS: iohexoL 350 MG/ML 100 ML INFUS..BTL 85 ML IV (05:30)
[2024-02-13] MEDS: Lactated Ringers 500 ML IV (05:33)
[2024-02-13] MEDS: Enoxaparin Sodium 40 MG/0.4 ML SYRINGE SUBCUT (05:34)
--- NOTE | 2024-02-13 05:58 | PC.NURSE ---
pt using BiPAP to sleep. O2 dropped to 75 with good pleth, woke pt, 02 up to 88%. respiratory at bedside to adjust settings/mask seal.
[2024-02-13] MEDS: levoFLOXacin/D5W 500 MG/100 ML PIGGYBACK 100 MG IV (07:08)
[2024-02-13] MEDS: Albuterol/Iprat 2.5/0.5MG 3 ML AMPUL.NEB INHALE ×4 (07:27→20:07)
--- NOTE | 2024-02-13 07:28 | PC.NURSE ---
Pt eating breakfast tolerating well. Sat 96% on baseline 2lpm via nc. Alert/oriented and speaking full sentences. Denies diff breathing
[2024-02-13] MEDS: levoFLOXacin/D5W 250 MG/50 ML PIGGYBACK 50 MG IV (08:23)
--- NOTE | 2024-02-13 08:47 | PHA.MEDREC ---
Pharmacy Consult ? Medication Reconciliation Pharmacy has completed the medication reconciliation. Spoke to patient to confirm med list. Patient states he is no longer on Prednisone 10 mg taper dose.
--- NOTE | 2024-02-13 10:07 | P.EN_ITS ---
Event Note Date of Service: 02/13/24 Event Note: 58-year-old male with pertinent history of chronic hypoxic respiratory failure due to COPD, hypertension, former tobacco use disorder with more than 30 pack- year smoking history, KIRILL/ohs on CPAP (pending approval for BiPAP), chronic lower leg edema, gastroesophageal reflux disease presented to ED for sob acute onset worse with exertion, with cough productive of clear phlegm, with no orthopnea, no PND, Of note, patient was recently admitted with acute exacerbati on of COPD and discharged on 01/26 with prednisone taper. Patient states he finished his taper about 9 days prior to presentation, he took his home inhalers without any relief developed substernal chest pain which is not relieved with rest, not exacerbated with exertion but exacerbated with cough and deep inspiration. He is awaiting approval for BiPAP currently. No fever, chills, palpitations, abdominal pain, changes in urinary or bowel habits. Treated in the emergency room with IV steroids, IV magnesium, IV azithromycin CTA chest negative for PE Chest x-ray showed lingular and right middle lobe scarring, no effusion or consolidation Patient feeling better this morning. #. Acute exacerbation of COPD in a patient with chronic hypoxemia: Continue IV steroids, Scheduled and p.r.n. DuoNebs. Continue home inhaler. Initiating empiric Levaquin (recurrent hospitalization for COPD and recent use of antibiotics). On chronic 2 L of oxygen, increased to 3 L with exertion as needed. #. Severe KIRILL/ohs: Continue BiPAP while in the hospital at bedtime. Patient is compliant with CPAP at home (awaiting outpatient approval for BiPAP) #. Gastroesophageal reflux disease: On famotidine #. Morbid obesity: Counseled regarding diet and exercise #. Hypertension: Continue home antihypertensives #. Chronic lower extremity edema: On Lasix, hold hydrochlorothiazide # tobacco use disorder resume nicotine patch. DVT prophylaxis: Lovenox Full code Admit as inpatient will require continued inpatient hospital stay for IV steroids, monitoring of mentation with high risk for decompensation (as above), which is not possible in a lesser acute setting. Time Spent With Patient Time: Total time managing care of this patient today ____ minutes.
[2024-02-13] MEDS: Nicotine 21 MG PATCH.TD24 TRANSDERMA (10:23)
[2024-02-13] MEDS: Famotidine 20 MG TABLET PO (10:23)
[2024-02-13] MEDS: methylPREDNISolone Sod Succ 40 MG/ML VIAL IVPUSH ×2 (10:23→21:37)
[2024-02-13] MEDS: 0.9 % Sodium Chloride Flush 3 ML SYRINGE IVFLUSH ×2 (17:37→21:43)
[2024-02-13] MEDS: polyethylene glycoL 3350 17 GM POWD.PACK PO (21:37)
[2024-02-14] VITALS (10 sets, daily range): BP systolic 141–172; BP diastolic 68–94; PULSE 82–99; RESP 16–20; TEMP 36.1–36.6; O2SAT 93–97
[2024-02-14] MEDS: Enoxaparin Sodium 40 MG/0.4 ML SYRINGE SUBCUT (05:42)
[2024-02-14] MEDS: Albuterol/Iprat 2.5/0.5MG 3 ML AMPUL.NEB INHALE ×4 (07:57→19:58)
[2024-02-14] MEDS: hydroCHLOROthiazide 25 MG TABLET PO (08:30)
[2024-02-14] MEDS: methylPREDNISolone Sod Succ 40 MG/ML VIAL IVPUSH ×2 (08:31→20:41)
[2024-02-14] MEDS: 0.9 % Sodium Chloride Flush 3 ML SYRINGE IVFLUSH (08:31)
[2024-02-14] MEDS: Famotidine 20 MG TABLET PO (08:31)
[2024-02-14] MEDS: levoFLOXacin/D5W 500 MG/100 ML PIGGYBACK 100 MG IV (08:31)
[2024-02-14] MEDS: Furosemide 40 MG TABLET PO (08:31)
[2024-02-14] MEDS: levoFLOXacin/D5W 250 MG/50 ML PIGGYBACK 50 MG IV (08:34)
[2024-02-14] MEDS: Nicotine 21 MG PATCH.TD24 TRANSDERMA (08:43)
--- NOTE | 2024-02-14 08:48 | MHC.CM.PN ---
CM met with Patient at bedside. Patient lives in an apartment with his Fiance/HCP/Paz and he is functionally independent. Patient obtains his home O2 through [facility], [place] and he has a CPAP machine at home(awaiting approval for BIPAP). Home is the goal and CM has initiated and will follow for dc planning. PCP is Dr. Leonard Boston.
--- NOTE | 2024-02-14 11:38 | HO.PM.IMPN ---
Subjective Subjective Date of Service: 02/14/24 Interval History: Being followed for shortness of breath, feels better but still not at his baseline, is compliant with CPAP at home use at night and with naps, is waiting for BiPAP. Denies fever, no cough, complaining of persistent shortness of breath, no other acute events overnight oxygenation stable on 2 L, tolerated BiPAP last night, noted to have elevated blood pressure this am. Review of Systems All other system are reviewed and are negative Physical Exam Vital Signs: Vital Signs: Last Vital Signs Temp 97.0 F 02/14/24 08:00 Pulse 90 02/14/24 11:14 Resp 20 02/14/24 11:14 BP 172/94 H 02/14/24 08:00 Pulse Ox 95 02/14/24 08:00 O2 Del Method Nasal Cannula 02/14/24 08:00 O2 Flow Rate 2 02/14/24 08:00 Oxygen Flow Rate 2 02/13/24 02:04 BMI result Body Mass Index 42.7 Const: Other: General awake alert x3, in no acute distress. Anicteric sclera Neck supple no JVD. CVS regular rate rhythm, Respiratory lungs diminished breath sound,few expiratory wheeze, no use of accessory muscles. Gastrointestinal abdomen soft, non tender, bowel sounds audible, no guarding , no rigidity. Extremities no pitting edema. Neuro non focal Skin no rash Psych appropriate affect Objective Data Active Medications Acetaminophen (Acetaminophen 325 Mg Tablet) 650 mg PO Q6H PRN PRN Reason: Pain, Mild (Pain Scale 1-3), fever or headache Albuterol/Ipratropium (Albuterol/Iprat 2.5/0.5mg 3 Ml Ampul.Neb) 3 ml INHALE RQ4H WHILE AWAKE [facility] Last Admin: 02/14/24 11:14 Dose: 3 ml Documented By: ELHAM Albuterol/Ipratropium (Albuterol/Iprat 2.5/0.5mg 3 Ml Ampul.Neb) 3 ml INHALE Q4H PRN PRN Reason: Wheezing Calcium Carbonate (Calcium Carbonate 750 Mg Tab.Chew) 750 mg PO Q4H PRN PRN Reason: Heartburn Enoxaparin Sodium (Enoxaparin Sodium 40 Mg/0.4 Ml Syringe) 40 mg SUBCUT Q24H [facility] Last Admin: 02/14/24 05:42 Dose: 40 mg Documented By: AMANDA Famotidine (Famotidine 20 Mg Tablet) 20 mg PO DAILY [facility] Last Admin: 02/14/24 08:31 Dose: 20 mg Documented By: STEPHANIE Furosemide (Furosemide 40 Mg Tablet) 40 mg PO DAILY [facility]; Protocol Last Admin: 02/14/24 08:31 Dose: 40 mg Documented By: STEPHANIE Hydrochlorothiazide (Hydrochlorothiazide 25 Mg Tablet) 25 mg PO DAILY [facility]; Protocol Last Admin: 02/14/24 08:30 Dose: 25 mg Documented By: STEPHANIE Levofloxacin (Levaquin) 500 mg in 100 mls @ 100 mls/hr IV Q24H [facility] Last Infusion: 02/14/24 09:35 Dose: Infused Documented By: STEPHANIE Levofloxacin (Levaquin) 250 mg in 50 mls @ 50 mls/hr IV Q24H [facility] Last Admin: 02/14/24 08:34 Dose: 50 mls/hr Documented By: STEPHANIE Magnesium Hydroxide (Milk Of Magnesia 30 Ml Oral.Susp) 30 ml PO DAILY PRN PRN Reason: Constipation Melatonin (Melatonin 3 Mg Tablet) 6 mg PO BEDTIME PRN PRN Reason: Insomnia Methylprednisolone Sodium Succinate (Methylprednisolone Sod Succ 40 Mg/Ml Vial) 40 mg IVPUSH Q12H [facility] Last Admin: 02/14/24 08:31 Dose: 40 mg Documented By: STEPHANIE Nicotine (Nicotine 21 Mg Patch.Td24) 21 mg TRANSDERMA DAILY [facility] Last Admin: 02/14/24 08:43 Dose: 21 mg Documented By: STEPHANIE Ondansetron HCl (Ondansetron Hcl 4 Mg/2 Ml Vial) 4 mg IVPUSH Q8H PRN PRN Reason: Nausea and Vomiting Polyethylene Glycol (Polyethylene Glycol 3350 17 Gm Powd.Pack) 17 gm PO BEDTIME [facility] Last Admin: 02/13/24 21:37 Dose: 17 gm Documented By: AMANDA Sodium Chloride (0.9 % Sodium Chloride Flush 3 Ml Syringe) 3 ml IVFLUSH QSHIFT [facility] Last Admin: 02/14/24 08:31 Dose: 3 ml Documented By: STEPHANIE Labs 02/13/24 04:40 02/13/24 04:40 Microbiology Microbiology Results: Microbiology 07/22/24 02:35 Blood Culture - Preliminary Blood - Venous No growth after 24 hours. 02/13/24 02:33 Blood Culture - Preliminary Blood - Venous No growth after 24 hours. Assessment and Plan (1) COPD exacerbation: Status: Acute (2) Hypoxic respiratory failure: Status: Acute Plan #. Acute exacerbation of COPD with chronic hypoxemia: Continue IV steroids, Scheduled and p.r.n. DuoNebs. Continue home inhaler. on empiric iv Levaquin (recurrent hospitalization for COPD and recent use of antibiotics). On chronic 2 L of oxygen at rest and 3 L with exertion as needed. Consult pulmonology for recurrent hospitalization/and to discuss continued use of bipap. #. Severe KIRILL/ohs: Continue BiPAP while in the hospital at bedtime/naps. Patient is compliant with CPAP at home (awaiting outpatient approval for BiPAP) #. Gastroesophageal reflux disease: On famotidine #. Hypertension: Continue home antihypertensives follow BP #. Chronic lower extremity edema: On Lasix, and hydrochlorothiazide. # tobacco use disorder counseling done, resume nicotine patch. # morbid obesity recommend weight loss DVT prophylaxis: Lovenox Full code patient will require continued inpatient hospital stay for IV steroids, monitoring of mentation with high risk for decompensation (as above), which is not possible in a lesser acute setting. Quality Stroke Does the patient have a stroke diagnosis?: No VTE Prior VTE?: No VTE Risk Level:: Medical - moderate - high VTE Device Contraindication: Treatment Not Indicated VTE Drug Contraindication: N/A - Med Ordered
--- NOTE | 2024-02-14 13:17 | P.CONPL_ITS ---
History of Present Illness History of Present Illness Consult date: 02/14/24 Chief complaint: Dyspnea Narrative: 58-year-old gentleman with underlying obesity pulmonary emphysema, 2 L of supplemental oxygen dependent, KIRILL on CPAP, also intermittent CO2 retention admitted on 02/13/2024 to telemetry [facility]co with dyspnea increased sputum production possible secondary to another COPD exacerbation. Treated empirically for COPD exacerbation with systemic glucocorticoids and nebulized bronchodilators. CTA chest negative for pulmonary embolism or pneumonia. Review of Systems 2 Constitutional: Constitutional: Denies daytime sleepiness, Denies excessive sweating, Denies fatigue, Denies fever(s), Denies lethargy, Denies malaise, Denies night sweats, Denies snoring and Denies weight loss Eyes: Eyes: Denies blurry vision and Denies itchy eyes ENT: Denies nasal congestion, Denies post nasal drip, Denies sinus pain, Denies sinus pressure and Denies other ( Thrush) Cardiovascular: Cardiovascular: Denies chest pain, Denies pedal edema, Denies dyspnea, Reports dyspnea on exertion, Denies orthopnea and Denies paroxysmal nocturnal dyspnea Respiratory: Respiratory: Denies cough, Denies hemoptysis, Denies excessive phlegm production, Denies dyspnea, Reports dyspnea on exertion, Denies snoring and Denies wheezing Gastrointestinal: Gastrointestinal: Denies abdominal pain and Denies heartburn Musculoskeletal: Musculoskeletal: Denies myalgias, Denies arthralgias and Denies joint swelling Integumentary/Breasts: Skin/Breast: Denies rash Neurologic: Denies memory loss and Denies seizure-like activity Psychiatric: Psychiatric: Denies abnormal sleep pattern, Denies anxiety and Denies memory loss Endocrine: Endocrine: Denies excessive sweating, Denies fatigue and Denies heat intolerance Hematologic/Lymphatic: Hematologic/Lymphatic: Denies easy bruising Allergic/Immunologic: Allergic/Immunologic: Denies itchy eyes, Denies seasonal rhinorrhea and Denies wheezing PMFSH Past Medical History Medical History (Updated 02/14/24 @ 13:22 by Dagoberto Choudhury MD) KIRILL (obstructive sleep apnea) Smoker COPD (chronic obstructive pulmonary disease) HTN (hypertension) Acid reflux Diverticulitis Family History Family History Mother Diabetes Arthritis Sleep apnea COPD (chronic obstructive pulmonary disease) Father Stomach cancer Diabetes Arthritis Sister Arthritis Surgical History Surgical History Hx of colonoscopy History of colostomy reversal H/O colostomy Social History Social History Household Members: Family Housing: House Do you presently have visiting nurse or other home services: No Alcohol intake: former Patient Tobacco Use Status: Never used Tobacco Tobacco use type: Cigarette Cigarette Packs Per Day: 1 Cigarettes Per Day: 13 Years Smoked: 35 e-Cigarette/Vaping Use: Never Used Second Hand Smoke Exposure: No service: No Current occupational status: employed Current occupation: [employer] Allergies Allergy/AdvReac Type Severity Reaction Status Date / Time No Known Allergies Allergy Unknown Verified 02/13/24 02:04 Active Medications: Current Medications Acetaminophen (Acetaminophen 325 Mg Tablet) 650 mg PO Q6H PRN PRN Reason: Pain, Mild (Pain Scale 1-3), fever or headache Albuterol/Ipratropium (Albuterol/Iprat 2.5/0.5mg 3 Ml Ampul.Neb) 3 ml INHALE RQ4H WHILE AWAKE [facility] Last Admin: 02/14/24 11:14 Dose: 3 ml Albuterol/Ipratropium (Albuterol/Iprat 2.5/0.5mg 3 Ml Ampul.Neb) 3 ml INHALE Q4H PRN PRN Reason: Wheezing Calcium Carbonate (Calcium Carbonate 750 Mg Tab.Chew) 750 mg PO Q4H PRN PRN Reason: Heartburn Enoxaparin Sodium (Enoxaparin Sodium 40 Mg/0.4 Ml Syringe) 40 mg SUBCUT Q24H [facility] Last Admin: 02/14/24 05:42 Dose: 40 mg Famotidine (Famotidine 20 Mg Tablet) 20 mg PO DAILY [facility] Last Admin: 02/14/24 08:31 Dose: 20 mg Furosemide (Furosemide 40 Mg Tablet) 40 mg PO DAILY [facility]; Protocol Last Admin: 02/14/24 08:31 Dose: 40 mg Hydrochlorothiazide (Hydrochlorothiazide 25 Mg Tablet) 25 mg PO DAILY [facility]; Protocol Last Admin: 02/14/24 08:30 Dose: 25 mg Levofloxacin (Levaquin) 500 mg in 100 mls @ 100 mls/hr IV Q24H [facility] Last Infusion: 02/14/24 09:35 Dose: Infused Levofloxacin (Levaquin) 250 mg in 50 mls @ 50 mls/hr IV Q24H [facility] Last Infusion: 02/14/24 10:59 Dose: Infused Magnesium Hydroxide (Milk Of Magnesia 30 Ml Oral.Susp) 30 ml PO DAILY PRN PRN Reason: Constipation Melatonin (Melatonin 3 Mg Tablet) 6 mg PO BEDTIME PRN PRN Reason: Insomnia Methylprednisolone Sodium Succinate (Methylprednisolone Sod Succ 40 Mg/Ml Vial) 40 mg IVPUSH Q12H [facility] Last Admin: 02/14/24 08:31 Dose: 40 mg Nicotine (Nicotine 21 Mg Patch.Td24) 21 mg TRANSDERMA DAILY [facility] Last Admin: 02/14/24 08:43 Dose: 21 mg Ondansetron HCl (Ondansetron Hcl 4 Mg/2 Ml Vial) 4 mg IVPUSH Q8H PRN PRN Reason: Nausea and Vomiting Polyethylene Glycol (Polyethylene Glycol 3350 17 Gm Powd.Pack) 17 gm PO BEDTIME [facility] Last Admin: 02/13/24 21:37 Dose: 17 gm Sodium Chloride (0.9 % Sodium Chloride Flush 3 Ml Syringe) 3 ml IVFLUSH QSHIFT [facility] Last Admin: 02/14/24 08:31 Dose: 3 ml Home Medications ?Medication ?Instructions ?Recorded ?Confirmed ?Last Taken ?Type acetaminophen 500 mg tablet 1,000 mg PO DAILY PRN Pain 12/09/23 02/13/24 Unknown History albuterol sulfate 90 mcg/actuation 2 inh inhalation Q4H PRN shortness 12/09/23 02/13/24 Unknown History aerosol inhaler of breath or wheezing polyethylene glycol 3350 17 17 g PO BEDTIME 12/09/23 02/13/24 02/12/24 History gram/dose oral powder (Miralax) hydrochlorothiazide 25 mg tablet 25 mg PO DAILY 01/22/24 02/13/24 02/12/24 History ipratropium 0.5 mg-albuterol 3 mg 3 ml inhalation Q4H PRN wheezing 01/22/24 02/13/24 Unknown History (2.5 mg base)/3 mL nebulization soln Physical Exam 2 Vital Signs: Vital Signs: Last Vital Signs Temp 97.0 F 02/14/24 08:00 Pulse 90 02/14/24 11:14 Resp 20 02/14/24 11:14 BP 172/94 H 02/14/24 08:00 Pulse Ox 95 02/14/24 08:00 O2 Del Method Nasal Cannula 02/14/24 08:00 O2 Flow Rate 2 02/14/24 08:00 Oxygen Flow Rate 2 02/13/24 02:04 BMI result Body Mass Index 42.7 Const: General: no acute distress and alert Nutritional Appearance: obese Orientation/consciousness: Other orientation findings ( oriented) HEENT: Head: Yes atraumatic Eyes: General: appearance normal, both eyes and all related structures S clerae: sclerae normal EOM: EOMs intact bilaterally Neck: Neck: Yes supple Lymphatic: no lymphadenopathy noted Resp: Effort & Inspection: normal respiratory effort and no use of accessory muscles Auscultation: clear to auscultation bilaterally Cardio: Rate: regular rate Rhythm: regular rhythm Heart sounds: no gallops, no murmurs and no rubs Skin: General skin exam: other ( warm) Extrem: General: No clubbing, No cyanosis and No edema Results Laboratory Findings 02/13/24 04:40 02/13/24 04:40 Abnormal lab findings: Abnormal Labs 02/13/24 02/13/24 02/13/24 02:33 02:36 04:40 Immature Gran % (Auto) 0.6 H Neut % (Auto) 82.1 H Lymph % (Auto) 12.0 L Abs Immat Gran (auto) 0.06 H VBG HCO3 34 H Random Glucose 116 H 172 H Alkaline Phosphatase 125 H Microbiology: Microbiology 02/13/24 02:35 Blood - Venous Blood Culture - Preliminary No growth after 24 hours. 02/13/24 02:33 Blood - Venous Blood Culture - Preliminary No growth after 24 hours. Assessment and Plan (1) COPD (chronic obstructive pulmonary disease): Status: Acute (2) Hypoxic respiratory failure: Status: Acute Plan Impression: 58-year-old gentleman with underlying COPD on 2 L of O2, obesity, KIRILL on CPAP admitted with acute on chronic dyspnea deemed to be secondary to COPD exacerbation. Recommendations: Agree with nebulized bronchodilators. Taper off systemic glucocorticoids. No evidence of pneumonia, consider discontinuation of Levaquin. Check ABG on home level of O2 to evaluate for chronic CO2 retention and BiPAP requirements. If PAO2 is below 55, then will need an outpatient titration study. Procedures Date of Service Date of Service: 02/14/24
--- NOTE | 2024-02-14 14:59 | PC.RT ---
Addendum entered by RT Sajan 02/15/24 07:51: ABG was drawn at 1602 on 02/13, results did not transfer to computer, will check with lab today and try to fix. MDs were notified of results immediately after test was done on 02/13. Original Note: RT discussed with MD and ABG will be drawn tomorrow morning post sleeping.
[2024-02-14] MEDS: polyethylene glycoL 3350 17 GM POWD.PACK PO (20:41)
[2024-02-15] VITALS (9 sets, daily range): BP systolic 135–169; BP diastolic 72–89; PULSE 79–103; RESP 18–20; TEMP 36.2–36.8; O2SAT 93–99
[2024-02-15] MEDS: Enoxaparin Sodium 40 MG/0.4 ML SYRINGE SUBCUT (03:32)
[2024-02-15] MEDS: 0.9 % Sodium Chloride Flush 3 ML SYRINGE IVFLUSH ×2 (03:33→08:57)
[2024-02-15] MEDS: Albuterol/Iprat 2.5/0.5MG 3 ML AMPUL.NEB INHALE ×4 (07:20→18:50)
[2024-02-15] MEDS: Famotidine 20 MG TABLET PO (08:56)
[2024-02-15] MEDS: hydroCHLOROthiazide 25 MG TABLET PO (08:56)
[2024-02-15] MEDS: methylPREDNISolone Sod Succ 40 MG/ML VIAL IVPUSH (08:56)
[2024-02-15] MEDS: Nicotine 21 MG PATCH.TD24 TRANSDERMA (08:57)
[2024-02-15] MEDS: Furosemide 40 MG TABLET PO (08:57)
--- NOTE | 2024-02-15 10:46 | MHC.CM.PN ---
Per ROUNDS discussion, Patient is not yet medically cleared for dc (desatting/needs ABGs); home is the goal and CM will continue to follow.
--- NOTE | 2024-02-15 11:56 | PC.NURSE ---
patient refusing bed alarm. patient educated on fall prevention measures and using call heath in need of assistance.
--- NOTE | 2024-02-15 17:23 | HO.PM.IMPN ---
Subjective Subjective Date of Service: 02/15/24 Interval History: Acute exacerbation of COPD with chronic hypoxemia Review of Systems sob seems similar ,still does not near his baseline .anxious no cough Physical Exam Vital Signs: Vital Signs: Last Vital Signs Temp 97.6 F 02/15/24 14:56 Pulse 82 02/15/24 15:05 Resp 18 02/15/24 15:05 BP 160/89 H 02/15/24 07:29 Pulse Ox 99 02/15/24 14:56 O2 Del Method Nasal Cannula 02/15/24 14:56 O2 Flow Rate 2 02/15/24 14:56 Oxygen Flow Rate 2 02/13/24 02:04 BMI result Body Mass Index 42.7 General awake alert x3, in no acute distress. CVS regular rate rhythm, Respiratory :diminished breath sound,few expiratory wheeze, no use of accessory muscles. Gastrointestinal abdomen soft, non tender, bowel sounds audible, no guarding , no rigidity. Extremities no pitting edema. Neuro non focal Skin no rash Psych appropriate affect Objective Data Active Medications Acetaminophen (Acetaminophen 325 Mg Tablet) 650 mg PO Q6H PRN PRN Reason: Pain, Mild (Pain Scale 1-3), fever or headache Albuterol/Ipratropium (Albuterol/Iprat 2.5/0.5mg 3 Ml Ampul.Neb) 3 ml INHALE RQ4H WHILE AWAKE [facility] Last Admin: 02/15/24 15:03 Dose: 3 ml Documented By: ROSA M Albuterol/Ipratropium (Albuterol/Iprat 2.5/0.5mg 3 Ml Ampul.Neb) 3 ml INHALE Q4H PRN PRN Reason: Wheezing Calcium Carbonate (Calcium Carbonate 750 Mg Tab.Chew) 750 mg PO Q4H PRN PRN Reason: Heartburn Enoxaparin Sodium (Enoxaparin Sodium 40 Mg/0.4 Ml Syringe) 40 mg SUBCUT Q24H [facility] Last Admin: 02/15/24 03:32 Dose: 40 mg Documented By: CECY Famotidine (Famotidine 20 Mg Tablet) 20 mg PO DAILY [facility] Last Admin: 02/15/24 08:56 Dose: 20 mg Documented By: STEPHANIE Furosemide (Furosemide 40 Mg Tablet) 40 mg PO DAILY [facility]; Protocol Last Admin: 02/15/24 08:57 Dose: 40 mg Documented By: STEPHANIE Hydrochlorothiazide (Hydrochlorothiazide 25 Mg Tablet) 25 mg PO DAILY [facility]; Protocol Last Admin: 02/15/24 08:56 Dose: 25 mg Documented By: STEPHANIE Magnesium Hydroxide (Milk Of Magnesia 30 Ml Oral.Susp) 30 ml PO DAILY PRN PRN Reason: Constipation Melatonin (Melatonin 3 Mg Tablet) 6 mg PO BEDTIME PRN PRN Reason: Insomnia Methylprednisolone Sodium Succinate (Methylprednisolone Sod Succ 40 Mg/Ml Vial) 40 mg IVPUSH DAILY [facility] Last Admin: 02/15/24 08:56 Dose: 40 mg Documented By: STEPHANIE Nicotine (Nicotine 21 Mg Patch.Td24) 21 mg TRANSDERMA DAILY [facility] Last Admin: 02/15/24 08:57 Dose: 21 mg Documented By: STEPHANIE Ondansetron HCl (Ondansetron Hcl 4 Mg/2 Ml Vial) 4 mg IVPUSH Q8H PRN PRN Reason: Nausea and Vomiting Polyethylene Glycol (Polyethylene Glycol 3350 17 Gm Powd.Pack) 17 gm PO BEDTIME [facility] Last Admin: 02/14/24 20:41 Dose: 17 gm Documented By: CECY Sodium Chloride (0.9 % Sodium Chloride Flush 3 Ml Syringe) 3 ml IVFLUSH QSHIFT [facility] Last Admin: 02/15/24 08:57 Dose: 3 ml Documented By: STEPHANIE Labs 02/13/24 04:40 02/13/24 04:40 Microbiology Microbiology Results: Microbiology 02/13/24 02:35 Blood Culture - Preliminary Blood - Venous No growth after 48 hours. 02/13/24 02:33 Blood Culture - Preliminary Blood - Venous No growth after 48 hours. Assessment and Plan (1) COPD (chronic obstructive pulmonary disease): Status: Acute (2) Acute exacerbation of chronic obstructive airways disease: Status: Acute Assessment and Plan: Acute exacerbation of COPD with chronic hypoxemia: Continue IV steroids, Scheduled and p.r.n. DuoNebs. Continue home inhaler. on empiric iv Levaquin (recurrent hospitalization for COPD and recent use of antibiotics). On chronic 2 L of oxygen at rest and 3 L with exertion as needed. abg yesterday: Consult pulmonology for recurrent hospitalization/and to discuss continued use of bipap. Severe KIRILL/ohs: Continue BiPAP while in the hospital at bedtime/naps. Patient is compliant with CPAP at home (awaiting outpatient approval for BiPAP) Gastroesophageal reflux disease: On famotidine Hypertension: Continue home antihypertensives follow BP Chronic lower extremity edema: On Lasix, and hydrochlorothiazide. tobacco use disorder counseling done, resume nicotine patch. morbid obesity recommend weight loss DVT prophylaxis: Lovenox Full code ongoing hospitalisation stay need for IV steroids, monitoring of mentation with high risk for decompensation (as above), which is not possible in a lesser acute setting. Quality Stroke Does the patient have a stroke diagnosis?: No VTE Prior VTE?: No VTE Risk Level:: Medical - moderate - high VTE Device Contraindication: Treatment Not Indicated VTE Drug Contraindication: N/A - Med Ordered
[2024-02-15 18:03] LABS: ABG Refer to POC result
[2024-02-15 18:04] LABS: ABG Base Excess 7.9 mmol/L; ABG HCO3 34 mmol/L (22-26); ABG pCO2 52 mmHg (32-45); ABG pH 7.41 (7.35-7.45); ABG pO2 71 mmHg (83-108)
[2024-02-15] MEDS: polyethylene glycoL 3350 17 GM POWD.PACK PO (21:08)
[2024-02-16] MEDS: Enoxaparin Sodium 40 MG/0.4 ML SYRINGE SUBCUT (03:33)
[2024-02-16] MEDS: 0.9 % Sodium Chloride Flush 3 ML SYRINGE IVFLUSH ×2 (03:34→08:40)
[2024-02-16 03:52] VITALS: BP 144/88; PULSE 84; RESP 20; TEMP 36.4; O2SAT 96
[2024-02-16] MEDS: Albuterol/Iprat 2.5/0.5MG 3 ML AMPUL.NEB INHALE ×2 (07:25→11:01)
[2024-02-16 07:29] VITALS: PULSE 80; RESP 18; O2SAT 98
[2024-02-16 07:39] VITALS: BP 157/90; PULSE 76; RESP 19; TEMP 36.2; O2SAT 100
[2024-02-16] MEDS: Famotidine 20 MG TABLET PO (08:39)
[2024-02-16] MEDS: hydroCHLOROthiazide 25 MG TABLET PO (08:39)
[2024-02-16] MEDS: methylPREDNISolone Sod Succ 40 MG/ML VIAL IVPUSH (08:40)
[2024-02-16] MEDS: Furosemide 40 MG TABLET PO (08:40)
[2024-02-16] MEDS: Nicotine 21 MG PATCH.TD24 TRANSDERMA (08:40)
[2024-02-16 11:03] VITALS: BP 147/85; PULSE 94; PULSE 97; RESP 18; RESP 19; TEMP 36.2; O2SAT 100; O2SAT 98
--- NOTE | 2024-02-16 12:38 | MHC.CM.PN ---
Patient has been medically cleared for dc to home today, self care.
--- NOTE | 2024-02-16 12:42 | P.DS_ITS ---
DS: Providers Provider Date of Service: 02/16/24 Date of admission: 02/13/24 03:26 Date of discharge: 02/16/24 Primary care physician: Leonard Boston MD Consults: 02/13/24 18:18 Consult to Pulmonology Routine Consulting Provider: Dagoberto Choudhury Reason for consultation: bipap need Has provider been notified: No Attending physician on discharge: Nissa Enriquez Discharging clinician: Nissa Enriquez DS: Diagnosis Discharge Diagnosis (1) COPD (chronic obstructive pulmonary disease): Status: Acute (2) Acute exacerbation of chronic obstructive airways disease: Status: Acute DS: Summary Hospital Course Hospital Course: 58-year-old male with pertinent history of chronic hypoxic respiratory failure due to COPD, hypertension, former tobacco use disorder with more than 30 pack- year smoking history, KIRILL/ohs on CPAP (pending approval for BiPAP), chronic lower leg edema, gastroesophageal reflux disease who presents to the emergency department for evaluation of dyspnea. Of note, patient was recently admitted with acute exacerbation of COPD and discharged on 01/26 with prednisone taper. Patient states he finished his taper about 9 days prior to presentation. Patient symptoms started on the day of presentation when he started having dyspnea which is worse with exertion. No orthopnea or PND. Also started having cough with clear sputum production and wheezing. He tried his home inhaler without any relief. Patient states he is compliant with his home CPAP. Also states he has been having substernal chest pain which is not relieved with rest, not exacerbated with exertion but exacerbated with cough and deep inspiration. He is awaiting approval for BiPAP currently. No fever, chills, palpitations, abdominal pain, changes in urinary or bowel habits. In the emergency department, patient with wheezing despite multiple DuoNeb treatments. Was given IV steroids. Hospital course: Acute exacerbation of COPD with chronic hypoxemia: Patient is on home oxygen, patient started on nebs, steroids, antibiotics initially,cpap, workup with CT also done showed no PE, blood culture negative at 48 hour,Patient has recurrent hospitalizations due to exacerbations above, seen by Pulmonary and ABG done , reviewed with pulmonary: Currently patient will be going home with oxygen and CPAP,short prednisone taper ,antibiotics discontinued.Patient need to follow up with pulmonary outpatient and outpatient titration study for further evaluation . plan: prednisone 40 mg daily for 4 days. continue home meds copd. Patient need to follow up with pulmonary outpatient and outpatient titration study for further evaluation. Above management discussed with the patient detail length he understand and in agreement with the above plan, time spent 40 minute. Time Attestation Total time managing care of this patient today: 40 mintues. Discharge Coordination Time (in mins): 40 min Quality: Safe Use of Opioids Does Pt have an Active Cancer Diagnosis on the Problem List?: No Quality: Stroke Does the patient have a stroke diagnosis?: No Physical Exam Vital Signs: Vital Signs: Last Vital Signs Temp 97.2 F 02/16/24 11:03 Pulse 94 02/16/24 11:03 Resp 19 02/16/24 11:03 BP 147/85 H 02/16/24 11:03 Pulse Ox 100 02/16/24 11:03 O2 Del Method Nasal Cannula 02/16/24 11:03 O2 Flow Rate 2 02/16/24 11:03 Oxygen Flow Rate 2 02/13/24 02:04 BMI result Body Mass Index 42.7 General awake alert x3, in no acute distress. CVS regular rate rhythm, Respiratory : air entry seems fair , no rales or wheezing Gastrointestinal abdomen soft, non tender, bowel sounds audible, no guarding , no rigidity. Extremities no pitting edema. Neuro non focal Skin no rash Psych appropriate affect DS: Data Data Completed and Pending Completed studies during hospitalization [Text1]: Procedures Assistance with Respiratory Ventilation, Less than 24 Consecutive Hours, Continuous Positive Airway Pressure (01/22/24) Labs on day of discharge: Laboratory Results - last 24 hr 02/14/24 16:02 O2 Saturation 93.0 ABG pH at Pt Temp 7.41 ABG pCO2 at Pt Temp 52 H ABG pO2 at Pt Temp 71 L ABG HCO3 34 H ABG Base Excess (Actual) 7.9 Preliminary micro results at discharge 02/13/24 02:35 Blood Culture - Preliminary Blood - Venous No growth after 48 hours. 02/13/24 02:33 Blood Culture - Preliminary Blood - Venous No growth after 48 hours. Imaging Chest x-ray: Radiologist's impression: ITS Impressions Chest X-Ray 02/13/24 02:47 IMPRESSION: Lingular and right middle lobe scarring. No definitive focal consolidation or pleural effusions. Chest CTA 02/13/24 05:20 IMPRESSION: No evidence of pulmonary embolism. Bibasilar atelectatic change and/or scarring. VTE: negative. Discharge Plan Discharge Anticipated Discharge Date/Time: 02/16/24 12:29 Patient Disposition: Home, Self-Care Discharge Diagnosis: Acute exacerbation of COPD with chronic hypoxemia Referrals: Leonard Boston MD [Primary Care Provider] - 1 Week Dagoberto Choudhury MD [Physician] - 1 Week Discharge Medications: New prednisone 20 mg tablet 40 mg PO DAILY Qty: 8 0RF Continued Anoro Ellipta 62.5-25 mcg/actuation blister with device 1 inh inhalation DAILY 30 Days Qty: 1 6RF hydrochlorothiazide 25 mg tablet 25 mg PO DAILY ipratropium-albuterol 0.5 mg-3 mg(2.5 mg base)/3 mL solution for nebulization 3 ml inhalation Q4H PRN (Reason: wheezing) (DME) CPAP Machine/Device Device See Rx Instructions .Route Qty: 1 0RF Rx Instructions: As directed. Auto cpap 5-20. with all supplies Length of need lifetime acetaminophen 500 mg Tablet 1,000 mg PO DAILY PRN (Reason: Pain) polyethylene glycol 3350 [Miralax] 17 gram/dose Powder 17 g PO BEDTIME albuterol sulfate 90 mcg/actuation HFA aerosol inhaler 2 inh inhalation Q4H PRN (Reason: shortness of breath or wheezing) nicotine 21 mg/24 hr Patch 24 Hour 21 mg transdermal DAILY Qty: 28 0RF famotidine 20 mg Tablet 20 mg PO DAILY Qty: 30 0RF furosemide 40 mg tablet 40 mg PO DAILY 30 Days Qty: 30 6RF Combivent Respimat 20-100 mcg/actuation mist 1 puff inhalation Q6H 30 Days Qty: 4 6RF Discharge Orders: Discharge Order (Routine); Ordered 02/16/24 Ordered By: Nissa Enriquez Diet: Advance to usual diet Activity on Discharge: As tolerated Stand Alone Forms: Patient Portal Discharge page Print Language: Tunisian Care Plan Goals: Acute exacerbation of COPD with chronic hypoxemia: Patient is on home oxygen, patient started on nebs, steroids, antibiotics initially,cpap, workup with CT also done showed no PE, blood culture negative at 48 hour,Patient has recurrent hospitalizations due to exacerbations above, seen by Pulmonary and ABG done , reviewed with pulmonary: Currently patient will be going home with oxygen and CPAP,short prednisone taper ,antibiotics discontinued.Patient need to follow up with pulmonary outpatient and outpatient titration study for further evaluation . Health Concerns: as above. Plan of Treatment: as above. Assessment: as above.
== END 2024-02-16 13:19 | disposition home or self-care (01) | DRG 191 ==
LOC: HO.ED 02:43 → HO.EDOVER 03:40 → HO.IMC 16:17
PROVIDERS: Hospitalist; Admitting Provider Student in an Organized Health Care Education/Training Program; Emergency Provider Emergency Medicine; PCP Internal Medicine Medical Oncology; Visit Provider Internal Medicine
DX: J43.9 Emphysema, unspecified (principal); E66.2 Morbid (severe) obesity with alveolar hypoventilation; J96.11 Chronic respiratory failure with hypoxia; Z68.41 Body mass index [BMI] 40.0-44.9, adult; I10 Essential (primary) hypertension; K21.9 Gastro-esophageal reflux disease without esophagitis; Z20.822 Contact with and (suspected) exposure to COVID-19; Z99.81 Dependence on supplemental oxygen; Z87.891 Personal history of nicotine dependence; Z79.899 Other long term (current) drug therapy
CPT/HCPCS: 0241U; 36415; 36600; 71045; 71275; 80048; 80076; 82803; 83605; 83735; 83880; 84484; 85025; 87040; 93005; 94640; 94660; 99222; 99285; J0456; J1650; J1956; J2919; J3475; J7120; Q9967

== ENCOUNTER → 2024-02-13 02:10 | Outpatient (BNV) | payer OTHER, SELFPAY | PROVIDERS: Admitting Provider Student in an Organized Health Care Education/Training Program; Emergency Provider Emergency Medicine; PCP Internal Medicine Medical Oncology; Visit Provider Internal Medicine | DX: R06.00 Dyspnea, unspecified (principal); R00.0 Tachycardia, unspecified | CPT/HCPCS: 93010 ==

== ENCOUNTER → 2024-02-13 03:26 | Outpatient (BNV) | payer OTHER, SELFPAY | PROVIDERS: Admitting Provider Student in an Organized Health Care Education/Training Program; Emergency Provider Emergency Medicine; PCP Internal Medicine Medical Oncology; Visit Provider Student in an Organized Health Care Education/Training Program | DX: J44.1 Chronic obstructive pulmonary disease with (acute) exacerbation (principal); J96.21 Acute and chronic respiratory failure with hypoxia | CPT/HCPCS: 99222; 99231; 99232; 99239; 99499 ==

== ENCOUNTER → 2024-02-13 03:26 | Outpatient (BNV) | payer OTHER, SELFPAY | PROVIDERS: Admitting Provider Student in an Organized Health Care Education/Training Program; Emergency Provider Emergency Medicine; PCP Internal Medicine Medical Oncology; Visit Provider Internal Medicine Pulmonary Disease | DX: J44.9 Chronic obstructive pulmonary disease, unspecified (principal); J96.91 Respiratory failure, unspecified with hypoxia | CPT/HCPCS: 99222 ==

== ENCOUNTER → 2024-03-03 00:59 | Outpatient (BNV) | payer OTHER, SELFPAY | PROVIDERS: Emergency Provider Emergency Medicine; PCP Internal Medicine Medical Oncology; Visit Provider Internal Medicine Cardiovascular Disease | DX: R07.9 Chest pain, unspecified (principal) | CPT/HCPCS: 93010 ==

== ENCOUNTER 2024-03-03 01:00 | Emergency (ER) | payer OTHER, SELFPAY ==
--- NOTE | 2024-03-03 | ECG_ITS ---
Test Reason : chest pain Blood Pressure : / mmHG Vent. Rate : 093 BPM Atrial Rate : 093 BPM P-R Int : 130 ms QRS Dur : 086 ms QT Int : 374 ms P-R-T Axes : 056 053 070 degrees QTc Int : 465 ms Normal sinus rhythm Normal ECG When compared with ECG of 13-FEB-2024 02:16, No significant change was found Referred By: Roxann Robins Electronically Signed By:JYOTHI ORTIZ MD
--- NOTE | ~2024-03-03 | XR_ITS ---
EXAMINATION: XR CHEST CLINICAL INFORMATION: Dyspnea. COMPARISON: 02/13/2024. TECHNIQUE: Frontal view of the chest was obtained. FINDINGS: The cardiomediastinal silhouette is stable. There is no focal lung consolidation or pleural effusions. Old/healing lower left rib fractures are noted. XR/XR chest 1V IMPRESSION: No acute cardiopulmonary process.
[2024-03-03 01:10] VITALS: BP 139/95; PULSE 90; RESP 22; TEMP 36.6; O2SAT 96; BMI 44.4
[2024-03-03 01:14] LABS: Venous Blood Gas Refer to POC result
[2024-03-03 01:15] LABS: Basophils Absolute Auto 0.1 X10*3/uL (0.0-0.2); Basophils Percent Auto 0.4 % (0-2); Eosinophils Absolute Auto 0.1 X10*3/uL (0.0-0.4); Eosinophils Percent Auto 0.6 % (0-4); Hematocrit 44.9 % (42.0-52.0); Hemoglobin 14.8 g/dl (14.0-18.0); Imm Gran Pct Auto 0.8 % (0.0-0.4); Lymphocytes Absolute Auto 3.7 X10*3/uL (1.2-4.9); Lymphocytes Percent Auto 29.7 % (20-40); MANUAL DIFF FLAG NO; Mean Corpuscular Hemoglobin 30.2 pg (27.0-33.0); Mean Corpuscular Volume 91.6 fL (80.0-98.0); Mean Platelet Volume 9.3 fL (9.4-12.4); Monocytes Absolute Auto 0.8 X10*3/uL (0.1-1.2); Monocytes Percent Auto 6.2 % (2-11); Neutrophils Absolute Auto 7.8 x10*3/uL (2.0-8.3); Neutrophils Percent Auto 62.3 % (45-73); Platelet Count 317 X10*3/uL (160-400); Red Cell Distribution Width 15.7 % (11.0-16.0); White Blood Count 12.4 X10*3/uL (4.8-10.8)
[2024-03-03 01:24] LABS: VBG Base Excess 6.5 mmol/L; VBG HCO3 34 mmol/L (22-26); VBG pCO2 63 mmHg; VBG pH 7.34 (7.32-7.43); VBG pO2 55 mmHg
[2024-03-03 01:35] LABS: Alanine Aminotransferase 21 U/L (0-40); Albumin Level 3.5 g/dL (3.5-5.0); Alkaline Phosphatase 124 U/L (39-117); Anion Gap 11 (12-20); Aspartate Amino Transferase 11 U/L (5-37); Bilirubin Total 0.1 mg/dL (0.0-1.0); Blood Urea Nitrogen 10 mg/dL (9-16); Calcium 9.7 mg/dL (8.4-10.2); Carbon Dioxide 33 mmol/L (22-29); Chloride 99 mmol/L (96-108); Creatinine Clr Calc Pharmacy 120.6; Estimated Glomerular Filt Rate > 60; Glucose Random 165 mg/dL (60-115); Potassium 3.8 mmol/L (3.3-5.1); Sodium 139 mmol/L (135-145); Total Protein 7.2 g/dL (6.5-8.0)
[2024-03-03 01:40] LABS: Troponin-I High Sensitivity 3.9 ng/L (<3.5-35.0)
[2024-03-03 02:07] LABS: Influenza A PCR NEGATIVE (Negative); Influenza B PCR NEGATIVE (Negative); Resp Syncy Virus RNA Qual PCR NEGATIVE (Negative); SARS COV2 PCR INHOUSE NEGATIVE (Negative)
[2024-03-03 04:18] VITALS: BP 141/95; PULSE 89; RESP 20; TEMP 36.8; O2SAT 98
--- NOTE | 2024-03-03 04:26 | ECG_ITS ---
Test Reason : CHEST PAIN Blood Pressure : / mmHG Vent. Rate : 085 BPM Atrial Rate : 085 BPM P-R Int : 140 ms QRS Dur : 086 ms QT Int : 372 ms P-R-T Axes : 073 044 066 degrees QTc Int : 442 ms Normal sinus rhythm Possible Inferior infarct , age undetermined Abnormal ECG When compared with ECG of 03-MAR-2024 00:59, No significant change was found Referred By: Roxann Robins Electronically Signed By:JYOTHI ORTIZ MD
[2024-03-03 05:40] VITALS: BP 150/99; PULSE 90; RESP 22; TEMP 37; O2SAT 97
--- NOTE | 2024-03-03 06:46 | ED_ITS ---
HPI - General Adult General Chief complaint: General Medical Stated complaint: Chest Pain, Trouble Breathing Time Seen by Provider: 03/03/24 06:41 Source: patient Mode of arrival: ambulatory Limitations: no limitations History of Present Illness ED Provider: Shahida Spencer PA-C HPI narrative: Patient is a 58 year old assigned male at with a history of COPD - on 2 liters at baseline, GERD, and diverticulitis presenting to the emergency department today with intermittent chest pain. Patient states that starting at 0300 on 03/02/2024 he began having intermittent chest pain that went all throughout his chest. Patient states that now, the chest pain has completely resolved and he feels back to baseline. Patient denies any dizziness, lightheadedness, abdominal pain, nausea, vomiting, fever, chills, blurry vision, double vision, loss of vision, difficulty breathing, shortness of breath, back pain, night sweats, pain with urination, increased urinary frequency, increased urinary urgency, blood in his urine or stool, syncope or a near syncopal episode, recent trauma or falls, bowel incontinence, bladder incontinence, or any other complaints at this time. Onset (ago): day(s) (1) Location: chest Relieving factors: none Exacerbating factors: none Associated symptoms: chest pain Treatments prior to arrival: none Related Data Home Medications ?Medication ?Instructions ?Recorded ?Confirmed acetaminophen 500 mg tablet 1,000 mg PO DAILY PRN Pain 12/09/23 02/13/24 albuterol sulfate 90 mcg/actuation 2 inh inhalation Q4H PRN shortness 12/09/23 02/13/24 aerosol inhaler of breath or wheezing polyethylene glycol 3350 17 17 g PO BEDTIME 12/09/23 02/13/24 gram/dose oral powder (Miralax) hydrochlorothiazide 25 mg tablet 25 mg PO DAILY 01/22/24 02/13/24 ipratropium 0.5 mg-albuterol 3 mg 3 ml inhalation Q4H PRN wheezing 01/22/24 02/13/24 (2.5 mg base)/3 mL nebulization soln Previous Rx's ?Medication ?Instructions ?Recorded furosemide 40 mg tablet 40 mg PO DAILY 30 days #30 tabs 11/01/23 ipratropium 20 mcg-albuterol 100 1 puff inhalation Q6H 30 days #4 11/01/23 mcg/actuation mist for inhalation grams (Combivent Respimat) famotidine 20 mg tablet 20 mg PO DAILY #30 tabs 12/12/23 nicotine 21 mg/24 hr daily 21 mg transdermal DAILY #28 ea 12/12/23 transdermal patch umeclidinium 62.5 mcg-vilanterol 1 inh inhalation DAILY 30 days #1 01/04/24 25 mcg/actuation powdr for ea inhalation (Anoro Ellipta) CPAP (CPAP Machine/Device) #1 ea 01/24/24 prednisone 20 mg tablet 40 mg (2 x 20 mg) PO DAILY #8 tabs 02/16/24 Allergies Allergy/AdvReac Type Severity Reaction Status Date / Time No Known Allergies Allergy Unknown Verified 03/03/24 01:14 Review of Systems 2 Constitutional: Constitutional: Reports no additional constitutional complaints, Denies chills, Denies fever(s) and Denies night sweats Eyes: Eyes: Reports no additional eye complaints, Denies blurry vision, Denies change in vision, Denies diplopia, Denies eye discharge, Denies loss of vision and Denies eye pain ENT: Denies dizziness Cardiovascular: Cardiovascular: Reports no additional cardiovascular complaints, Reports chest pain (intermittent - now resolved), Denies lightheadedness, Denies Loss of Consciousness and Denies dyspnea Respiratory: Respiratory: Reports no additional respiratory complaints and Denies dyspnea Gastrointestinal: Gastrointestinal: Reports no additional gastrointestinal complaints, Denies abdominal pain, Denies melena, Denies hematochezia, Denies change in bowel habits and Denies change in stool character Genitourinary: Genitourinary: Reports no additional male genitourinary complaints, Denies hematuria, Denies oliguria, Denies difficulty urinating, Denies dysuria, Denies urinary frequency, Denies urinary hesitancy, Denies urinary incontinence and Denies urinary urgency Musculoskeletal: Musculoskeletal: Reports no additional musculoskeletal complaints, Denies numbness and Denies tingling Neurologic: Denies dizziness, Denies loss of vision, Denies numbness and Denies tingling Psychiatric: Psychiatric: Reports no additional psychiatric complaints Endocrine: Endocrine: Reports no additional endocrine complaints Hematologic/Lymphatic: Hematologic/Lymphatic: Reports no additional hematologic/lymphatic complaints Allergic/Immunologic: Allergic/Immunologic: Reports no additional allergic/immunologic complaints PMFSH Past Medical History Attestation statement: The following information was validated with the patient. Source: old records reviewed and nursing notes reviewed Medical History KIRILL (obstructive sleep apnea) Smoker COPD (chronic obstructive pulmonary disease) HTN (hypertension) Acid reflux Diverticulitis Surgical History Hx of colonoscopy History of colostomy reversal H/O colostomy Family History Family History Mother Diabetes Arthritis Sleep apnea COPD (chronic obstructive pulmonary disease) Father Stomach cancer Diabetes Arthritis Sister Arthritis Social History Social History Household Members: Family Housing: House Do you presently have visiting nurse or other home services: No Alcohol intake: former Comment: at bedside Patient Tobacco Use Status: Never used Tobacco Tobacco use type: Cigarette Cigarette Packs Per Day: 1 Cigarettes Per Day: 13 Years Smoked: 35 Smoked in Last 30 Days: Yes e-Cigarette/Vaping Use: Never Used Second Hand Smoke Exposure: No Use of substances other than those prescribed or required for medical reasons: No Advance Directives: No Advance Directives Information Provided: No service: No Current occupational status: employed 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 Physical Exam ED Vital Signs: Vital Signs - 24 hr 03/03/24 01:10 03/03/24 04:18 03/03/24 05:40 Temperature 97.9 F 98.2 F 98.6 F Pulse Rate 90 89 90 Respiratory Rate 22 H 20 22 H Blood Pressure 139/95 H 141/95 H 150/99 H Pulse Oximetry 96 98 97 Oxygen Delivery Method Nasal Cannula Nasal Cannula Nasal Cannula Oxygen Flow Rate 2 2 03/03/24 07:14 Temperature 98.6 F Pulse Rate 90 Respiratory Rate 22 H Blood Pressure 150/99 H Pulse Oximetry 97 Oxygen Delivery Method Nasal Cannula Oxygen Flow Rate 2 BMI result Body Mass Index 44.4 Const General: cooperative, no acute distress, alert and awake Nutritional Appearance: well nourished Orientation/consciousness: patient oriented x3 Limitations: no limitations HENMT Head: Yes normal to inspection and Yes atraumatic Ears: hearing grossly normal bilaterally and external ears normal General nose exam: Normal external nose present, no nasal discharge noted and no epistaxis Face and sinus: Yes normal facial exam, No abrasion and No laceration Mouth: Normal oral and palatal mucosa present, no drooling and no muffled voice Eyes General: appearance normal, both eyes and all related structures Periorbital: periorbital findings normal Eyelids: Yes eyelids normal Conjunctivae: conjunctivae normal Pupils: Equal, round and reactive pupils present EOM: EOMs intact bilaterally Neck Neck: Yes normal visual inspection, Yes full ROM and Yes no lymphadenopathy Chest Chest palpation & inspection: normal inspection of the chest Resp Effort & Inspection: normal respiratory effort and able to speak in complete sentences GI Inspection: Yes normal to inspection Neuro General: patient oriented x3 and moves all extremities Cranial nerves: Yes Equal, round and reactive pupils present Cognition (Neuro): normal cognition Extrem General: Yes normal to inspection, Yes full ROM and Yes capillary refill normal Psych Appearance: grossly normal Mental Status: mental status grossly normal Affect: normal affect Attitude: cooperative Thought process: Normal thought process present Thought content: Normal thought content present Insight: Good insight present (Psych) Medical Decision Making Medical Decision Making MDM Narrative: Patient is a 58 year old assigned male at with a history of COPD - on 2 liters at baseline, GERD, and diverticulitis presenting to the emergency department today with intermittent, now resolved, chest pain. Patient's physical exam was unremarkable. Patient's blood work was unremarkable. Patient's EKG was unremarkable. Patient's chest x-ray showed no acute process. I explained my physical exam findings as well as all test results to the patient. I answered all questions asked by the patient. I stressed the importance of the patient taking his medication as directed (either prescribed or as the over the counter packaging recommends). I stressed the importance of the patient following up with his primary care provider. I stressed the importance of the patient returning to the emergency department immediately if his symptoms were to return or if he were to develop any dizziness, shortness of breath, difficulty breathing, chest pain, blurry vision, loss of vision, nausea, vomiting, abdominal pain, fever, chills, back pain, or any other complaints. Patient verbalized agreement and understanding with this treatment plan and discharge. Differential Diagnosis Differential Diagnoses: The differential diagnosis associated with the presentation includes Chest pain NSTEMI STEMI Angina Unstable angina Atypical chest pain Anxiety Admission/Observation Consideration of admission/observation: Escalation of care including admission/observation considered Patient would have been admitted to the hospital had his work up had any findings where hospital admission was appropriate and his clinical presentation warranted hospital admission. Lab Data [facility] Lab Attestation statement: I reviewed the patient's lab results. My interpretation of these results are in the [facility] Rationale portion of this note. 03/03/24 01:10 03/03/24 01:10 Labs: Lab Results 03/03/24 03/03/24 03/03/24 Range/Units 01:10 01:11 01:19 WBC 12.4 H (4.8-10.8) X10*3/uL RBC 4.90 (4.60-5.80) X10*6/uL Hgb 14.8 (14.0-18.0) g/dl Hct 44.9 (42.0-52.0) % MCV 91.6 (80.0-98.0) fL MCH 30.2 (27.0-33.0) pg MCHC 33.0 (31.0-36.0) g/dl RDW 15.7 (11.0-16.0) % Plt Count 317 D (160-400) X10*3/uL MPV 9.3 L (9.4-12.4) fL Immature Gran % (Auto) 0.8 H (0.0-0.4) % Neut % (Auto) 62.3 (45-73) % Lymph % (Auto) 29.7 (20-40) % [place] % (Auto) 6.2 (2-11) % Eos % (Auto) 0.6 (0-4) % Baso % (Auto) 0.4 (0-2) % Lymph # (Auto) 3.7 (1.2-4.9) X10*3/uL [place] # (Auto) 0.8 (0.1-1.2) X10*3/uL Eos # (Auto) 0.1 (0.0-0.4) X10*3/uL Baso # (Auto) 0.1 (0.0-0.2) X10*3/uL Abs Immat Gran (auto) 0.10 H (0.00-0.03) X10*3/uL Absolute Neuts (auto) 7.8 (2.0-8.3) x10*3/uL Absolute Nucleated RBC 0.000 (0.0-0.012) X10*3/uL Nucleated RBC % (auto) 0.0 (0.0-0.2) /100WBC VBG pH 7.34 (7.32-7.43) VBG pCO2 63 mmHg VBG pO2 55 mmHg VBG HCO3 34 H (22-26) mmol/L VBG O2 Saturation 83.0 % VBG Base Excess 6.5 mmol/L Sodium 139 (135-145) mmol/L Potassium 3.8 (3.3-5.1) mmol/L Chloride 99 (96-108) mmol/L Carbon Dioxide 33 H (22-29) mmol/L Anion Gap 11 L (12-20) BUN 10 (9-16) mg/dL Creatinine 0.91 (0.5-1.4) mg/dL Estim Creat Clear Calc 120.6 Estimated GFR > 60 Random Glucose 165 H (60-115) mg/dL Calcium 9.7 (8.4-10.2) mg/dL Total Bilirubin 0.1 (0.0-1.0) mg/dL AST 11 (5-37) U/L ALT 21 (0-40) U/L Alkaline Phosphatase 124 H (39-117) U/L Troponin I High Sens 3.9 (<3.5-35.0) ng/L Total Protein 7.2 (6.5-8.0) g/dL Albumin 3.5 (3.5-5.0) g/dL Influenza Type A (PCR) NEGATIVE (Negative) Influenza Type B (PCR) NEGATIVE (Negative) RSV RNA Qual (PCR) NEGATIVE (Negative) SARS-CoV-2 RNA (RT-PCR) NEGATIVE (Negative) Independent Interpretation I performed an independent interpretation of an: EKG and Plain X-Ray Interpretation: My interpretation is in agreement with the radiologist's impression of this imaging study. - EXAMINATION: XR CHEST CLINICAL INFORMATION: Dyspnea. COMPARISON: 02/13/2024. TECHNIQUE: Frontal view of the chest was obtained. FINDINGS: The cardiomediastinal silhouette is stable. There is no focal lung consolidation or pleural effusions. Old/healing lower left rib fractures are noted. XR/XR chest 1V IMPRESSION: No acute cardiopulmonary process. Dictated By: Gene Elmore MD Signed By: Electronically signed by Gene Elmore MD 03/03/24 0228 - Vent. Rate: 093 BPM Atrial Rate: 093 BPM P-R Int: 130 ms QRS Dur: 086 ms QT Int: 374 ms P-R-T Axes: 056 053 070 degrees QTc Int: 465 ms Normal sinus rhythm Normal ECG When compared with ECG of 13-FEB-2024 02:16, No significant change was found DD/ 0059 Radiology Impression Discussion of test interpretation with radiology: I have reviewed the radiologist's reading. Discharge Plan Discharge Clinical Impression: Chest pain Patient Disposition: Home, Self-Care Instructions: Chest Pain (DC) Additional Instructions: Follow up with your primary care provider. Return to the emergency department immediately if your symptoms worsen or if you develop any dizziness, shortness of breath, difficulty breathing, chest pain, blurry vision, loss of vision, nausea, vomiting, abdominal pain, fever, chills, back pain, or any other complaints. Prescriptions: No Action Anoro Ellipta 62.5-25 mcg/actuation blister with device 1 inh inhalation DAILY 30 Days Qty: 1 6RF hydrochlorothiazide 25 mg tablet 25 mg PO DAILY ipratropium-albuterol 0.5 mg-3 mg(2.5 mg base)/3 mL solution for nebulization 3 ml inhalation Q4H PRN (Reason: wheezing) (DME) CPAP Machine/Device Device See Rx Instructions .Route Qty: 1 0RF Rx Instructions: As directed. Auto cpap 5-20. with all supplies Length of need lifetime acetaminophen 500 mg Tablet 1,000 mg PO DAILY PRN (Reason: Pain) polyethylene glycol 3350 [Miralax] 17 gram/dose Powder 17 g PO BEDTIME albuterol sulfate 90 mcg/actuation HFA aerosol inhaler 2 inh inhalation Q4H PRN (Reason: shortness of breath or wheezing) nicotine 21 mg/24 hr Patch 24 Hour 21 mg transdermal DAILY Qty: 28 0RF famotidine 20 mg Tablet 20 mg PO DAILY Qty: 30 0RF prednisone 20 mg tablet 40 mg PO DAILY Qty: 8 0RF furosemide 40 mg tablet 40 mg PO DAILY 30 Days Qty: 30 6RF Combivent Respimat 20-100 mcg/actuation mist 1 puff inhalation Q6H 30 Days Qty: 4 6RF Referrals: Leonard Boston MD [Primary Care Provider] - Interventions: ED Discharge Assessment Last Done: 03/03/24 07:14 Discharge Date/Time: 03/03/24 07:15 Print Language: Yakut
[2024-03-03 07:14] VITALS: BP 150/99; PULSE 90; RESP 22; TEMP 37; O2SAT 97
== END 2024-03-03 07:15 | disposition home or self-care (01) ==
PROVIDERS: Emergency Provider Emergency Medicine; PCP Internal Medicine Medical Oncology
DX: R07.9 Chest pain, unspecified (principal); R06.02 Shortness of breath; I10 Essential (primary) hypertension; J44.9 Chronic obstructive pulmonary disease, unspecified; Z99.81 Dependence on supplemental oxygen; Z87.891 Personal history of nicotine dependence
CPT/HCPCS: 0241U; 36415; 71045; 80053; 82803; 84484; 85025; 93005; 99284

== ENCOUNTER 2024-03-13 10:22 | Outpatient (AMB) | payer OTHER, SELFPAY ==
[2024-03-13 10:23] VITALS: BP 148/82; PULSE 100; O2SAT 95; BMI 44.8
--- NOTE | 2024-03-13 10:23 | MHC.OFFVIS ---
Vital Signs 03/13/24 10:23 Height 5 ft 8 in Weight 295 lb BMI 44.8 BP 148/82 H Blood Pressure Location Rt brachial Position Sitting Pulse 100 Pulse Source Doppler Pulse Oximetry (%) 95 Oxygen Delivery Method Nasal Cannula Oxygen Flow Rate 2 Intake Visit Reasons: COPD Allergies No Known Allergies Allergy (Unknown, Verified 03/03/24 01:14) HPI HPI COPD: Details: 58-year-old gentleman recent 30+ pack-year smoker, quit 04/2023 now followed for pulmonary emphysema, KIRILL now on CPAP, and dyspnea on exertion. After the last office visit patient has been hospitalized [facility] for acute hypercapnic respiratory failure and got his CPAP. He is now using it however his symptoms are not controlled on continues to experience CO2 retention. He continues on Anoro, duo nebs, and Combivent with slowly worsening control of his underlying COPD. [facility] Medical History (Updated 03/13/24 @ 11:15 by Dagoberto Choudhury MD) KIRILL (obstructive sleep apnea) Smoker COPD (chronic obstructive pulmonary disease) HTN (hypertension) Acid reflux Diverticulitis Surgical History Hx of colonoscopy History of colostomy reversal H/O colostomy Family History Mother Diabetes Arthritis Sleep apnea COPD (chronic obstructive pulmonary disease) Father Stomach cancer Diabetes Arthritis Sister Arthritis Social History Household Members: Family Housing: House Do you presently have visiting nurse or other home services: No Alcohol intake: former Comment: at bedside Patient Tobacco Use Status: Never used Tobacco Tobacco use type: Cigarette Cigarette Packs Per Day: 1 Cigarettes Per Day: 13 Years Smoked: 35 e-Cigarette/Vaping Use: Never Used Second Hand Smoke Exposure: No service: No Current occupational status: employed Current occupation: [employer] Review of Systems Const Denies daytime sleepiness, Denies excessive sweating, Denies fatigue, Denies fever(s), Denies lethargy, Denies malaise, Denies night sweats, Denies snoring and Denies weight loss Eyes Denies blurry vision and Denies itchy eyes ENT Denies nasal congestion, Denies post nasal drip, Denies sinus pain, Denies sinus pressure and Denies other ( Thrush) Card Denies chest pain, Denies pedal edema, Reports leg edema, Denies dyspnea, Reports dyspnea on exertion, Denies orthopnea and Denies paroxysmal nocturnal dyspnea Resp Denies cough, Denies hemoptysis, Denies excessive phlegm production, Denies dyspnea, Reports dyspnea on exertion, Denies snoring and Denies wheezing GI Denies abdominal pain and Denies heartburn Musc Denies myalgias, Denies arthralgias and Denies joint swelling Skin/Breast Denies rash Neuro Denies memory loss and Denies seizure-like activity Psych Denies abnormal sleep pattern, Denies anxiety and Denies memory loss Endo Denies excessive sweating, Denies fatigue and Denies heat intolerance Liam/Lymph Denies easy bruising Aller/Immun Denies itchy eyes, Denies seasonal rhinorrhea and Denies wheezing Physical Exam Vital Signs: Last Vital Signs Pulse 100 03/13/24 10:23 BP 148/82 H 03/13/24 10:23 Pulse Ox 95 03/13/24 10:23 Oxygen Delivery Method Nasal Cannula 03/13/24 10:23 Oxygen Flow Rate 2 03/13/24 10:23 BMI result Body Mass Index 44.8 Const General: no acute distress and alert Nutritional Appearance: obese Orientation/consciousness: Other orientation findings ( oriented) HEENT Head: Yes atraumatic Eyes General: appearance normal, both eyes and all related structures Sclerae: sclerae normal EOM: EOMs intact bilaterally Neck Neck: Yes supple Lymphatic: no lymphadenopathy noted Resp Effort & Inspection: normal respiratory effort and no use of accessory muscles Auscultation: crackles (Bilateral) Cardio Rate: regular rate Rhythm: regular rhythm Heart sounds: no gallops, no murmurs and no rubs Skin General skin exam: other ( warm) Extrem General: No clubbing, No cyanosis and Yes edema (Trace bilateral) Assessment & Plan Assessment & Plan (1) COPD (chronic obstructive pulmonary disease): Code(s): J44.9 - Chronic obstructive pulmonary disease, unspecified Category: Medical Plan: Suboptimally controlled on Anoro and Combivent. Will add theophylline. (2) KIRILL (obstructive sleep apnea): Code(s): G47.33 - Obstructive sleep apnea (adult) (pediatric) Category: Medical Plan: KIRILL component reasonably controlled, however does have significant CO2 retention. Will request titration study. (3) CO2 retention: Code(s): E87.29 - Other acidosis Category: Medical Plan: Requires nocturnal BiPAP. Titration study requested. Orders: Orders RT PSG in-lab sleep titration Today E87.29 - Other acidosis, G47.33 - Obstructive sleep apnea (adult) (pediatric) Medications: New theophylline ER 400 mg PO DAILY 30 tabs 6RF Coding Level of Care Code Est Pt Level 4 (16169) Diagnoses COPD (chronic obstructive pulmonary disease) J44.9 KIRILL (obstructive sleep apnea) G47.33 CO2 retention E87.29
== END 2024-03-13 10:45 | disposition home or self-care (01) ==
PROVIDERS: PCP Internal Medicine Medical Oncology; Visit Provider Internal Medicine Pulmonary Disease
DX: J44.9 Chronic obstructive pulmonary disease, unspecified (principal); G47.33 Obstructive sleep apnea (adult) (pediatric); E87.29 Other acidosis
CPT/HCPCS: 99214

== ENCOUNTER → 2024-03-13 10:22 | Outpatient (BNVA) | payer OTHER, SELFPAY | PROVIDERS: PCP Internal Medicine Medical Oncology; Visit Provider Internal Medicine Pulmonary Disease ==

== ENCOUNTER 2024-03-20 10:54 | Outpatient (AMB) | payer OTHER, SELFPAY ==
[2024-03-20 11:07] VITALS: BMI 44.8
--- NOTE | 2024-03-20 11:07 | A.OFFVIS_ITS ---
VS Expanded 03/20/24 11:07 03/27/24 13:10 Height 5 ft 8 in 5 ft 8 in Weight 294 lb 15.656 oz 295 lb BMI 44.8 44.8 Intake Visit Reasons: Obesity/ Hyperlipidemia/CONFIRMED Allergies No Known Allergies Allergy (Unknown, Verified 03/03/24 01:14) Nutrition Presentation Details: Pt presents for MNT for hyperlipidemia, morbid obesity. Pt was referred by PCP, Dr Boston Pt presents with during this appt. Pt admits to choosing high fat foods , particularly in the evening/night time and reports eating out 3-4 times/wk food frequency fruits: 0/d veg: combination starchy/non starchy -3 x/wk beverages: soda/juices protein: 15 oz/d fried foods 4-5 x/wk physical activity: sedentary ETOH- smoking: stopped a yr ago BS Monitoring Most Recent Diabetes Results: Creatinine 0.91 mg/dL (0.5-1.4) 03/03/24 Blood Urea Nitrogen 10 mg/dL (9-16) 03/03/24 Sodium 139 mmol/L (135-145) 03/03/24 Potassium 3.8 mmol/L (3.3-5.1) 03/03/24 Chloride 99 mmol/L (96-108) 03/03/24 Carbon Dioxide 33 mmol/L (22-29) H 03/03/24 Calcium 9.7 mg/dL (8.4-10.2) 03/03/24 AST 11 U/L (5-37) 03/03/24 ALT 21 U/L (0-40) 03/03/24 Total Protein 7.2 g/dL (6.5-8.0) 03/03/24 Albumin 3.5 g/dL (3.5-5.0) 03/03/24 LND-Scwogrb-Eg.Jeor Equation Height: 5 ft 8 in Weight: 295 lb Resting Metabolic Rate: 2145.74 Calculated Activity Level: Sedentary Calories Needed to Maintain Weight: 2574.89 Diagnosis Nutrition problem #1: excessive energy intake As related to (etiology) #1: lack of nutrit education and diagnosis As evidenced by (sign/symptom) #1: high BMI (44.9 on 02/2024 and hyperlipidemia) [facility] Medical History (Updated 03/27/24 @ 13:[address], LDN) KIRILL (obstructive sleep apnea) Smoker COPD (chronic obstructive pulmonary disease) HTN (hypertension) Acid reflux Diverticulitis Surgical History Hx of colonoscopy History of colostomy reversal H/O colostomy Family History Mother Diabetes Arthritis Sleep apnea COPD (chronic obstructive pulmonary disease) Father Stomach cancer Diabetes Arthritis Sister Arthritis Social History Household Members: Family Housing: House Do you presently have visiting nurse or other home services: No Alcohol intake: former Comment: at bedside Patient Tobacco Use Status: Never used Tobacco Tobacco use type: Cigarette Cigarette Packs Per Day: 1 Cigarettes Per Day: 13 Years Smoked: 35 e-Cigarette/Vaping Use: Never Used Second Hand Smoke Exposure: No service: No Current occupational status: employed Current occupation: [employer] Assessment & Plan Assessment & Plan (1) Morbid obesity with BMI of 40.0-44.9, adult: Code(s): E66.01 - Morbid (severe) obesity due to excess calories; Z68.41 - Body mass index [BMI] 40.0-44.9, adult Category: Medical Plan: Wt: 134 Kg ( 03/17 ) Est kcal needs as per MSJ: 2600 (40% carb, 30% protein/fat) Est fluid needs as per 25-30 ml/d: 4000 Est prot per day as per 1 g/kg bw: 134 Recommend fiber intake : 8-10 g per day and gradually increase to 25-28 g per day for women and 35-38 g for men or as tolerated Recommend sodium intake per day : less than 2000 mg Educated patient on: ( R = reviewed V = verbalizes understanding N/R = needs review N/A = not applicable * Food sources of carbohydrate, adequate serving sizes and its role in various health conditions: R * Differences between complex carbohydrates a simple carbohydrates, role of fiber in diet: R V N/R * Lean protein sources of foods: R V NR * Differences between types of fats and role in diet (mono on saturated fat fatty acids, saturated fatty acids, trans fats): R * Food sources of sodium in salt and healthy modifications for heart health in kidney health: R V R/V * Vitamins and minerals: R V N/R * Healthy plate method concept: R * Physical activity: Benefits a precaution: R V N/R Patient Instructions: Work on reducing fat from fried/breaded food items and choose baked/steamed protein foods/starches instead see list of meals ideas lower in fat Coding Level of Care Code Nutr Indiv Intake (49438) Diagnoses Morbid obesity with BMI of 40.0-44.9, adult E66.01; Z68.41 Time Spent (min) 30
[2024-03-27 13:10] VITALS: BMI 44.8
== END 2024-03-20 11:48 | disposition home or self-care (01) ==
PROVIDERS: PCP Internal Medicine Medical Oncology; Visit Provider Dietitian, Registered
DX: E66.01 Morbid (severe) obesity due to excess calories (principal); Z68.41 Body mass index [BMI] 40.0-44.9, adult

== ENCOUNTER → 2024-03-20 10:54 | Outpatient (BNVA) | payer OTHER, SELFPAY | PROVIDERS: PCP Internal Medicine Medical Oncology; Visit Provider Dietitian, Registered | DX: E66.01 Morbid (severe) obesity due to excess calories (principal); Z68.41 Body mass index [BMI] 40.0-44.9, adult; E78.5 Hyperlipidemia, unspecified; Z71.3 Dietary counseling and surveillance | CPT/HCPCS: 97802 ==

== ENCOUNTER → 2024-04-13 04:21 | Outpatient (BNV) | payer OTHER, SELFPAY | PROVIDERS: PCP Internal Medicine Medical Oncology; Visit Provider Internal Medicine | DX: E87.29 Other acidosis (principal); G47.33 Obstructive sleep apnea (adult) (pediatric) | CPT/HCPCS: 95811 ==

== ENCOUNTER → 2024-04-13 20:30 | Outpatient (REF) | payer OTHER, SELFPAY | LOC: HO.SL 20:30 | PROVIDERS: PCP Internal Medicine Medical Oncology; Visit Provider Internal Medicine Pulmonary Disease | DX: G47.33 Obstructive sleep apnea (adult) (pediatric) (principal); E87.29 Other acidosis | CPT/HCPCS: 95811 ==

== ENCOUNTER 2024-04-22 06:46 | Inpatient (IN) | payer OTHER, SELFPAY ==
[2024-04-22] VITALS (8 sets, daily range): BP systolic 122–159; BP diastolic 80–96; PULSE 105–116; RESP 17–28; TEMP 37–37.6; O2SAT 89–95; BMI 40.9
--- NOTE | ~2024-04-22 | XR_ITS ---
EXAMINATION: XR CHEST CLINICAL INFORMATION: Shortness of breath COMPARISON: Prior chest November 2023 TECHNIQUE: Frontal view of the chest was obtained. FINDINGS: There is linear opacity in the left mid to lower lung unchanged compared to prior compatible with discoid atelectasis. Lungs otherwise clear. XR/XR chest 1V IMPRESSION: Linear opacity in the left mid to lower lung compatible with discoid atelectasis. Electronically signed by: Toni Fortune MD 04/22/2024 08:03 AM EDT RP
--- NOTE | 2024-04-22 07:00 | PC.NURSE ---
Report taken from Nabila Vargas RN
[2024-04-22] MEDS: Albuterol Sulfate 7.5 MG, Albuterol/Iprat 2.5/0.5MG 3 ML 3 ML INHALE (07:13)
--- NOTE | 2024-04-22 07:41 | ECG_ITS ---
Test Reason : SOB Blood Pressure : / mmHG Vent. Rate : 120 BPM Atrial Rate : 120 BPM P-R Int : 138 ms QRS Dur : 080 ms QT Int : 334 ms P-R-T Axes : 056 081 044 degrees QTc Int : 472 ms Sinus tachycardia Inferior infarct (cited on or before 03-MAR-2024) Abnormal ECG When compared with ECG of 03-MAR-2024 04:26, Nonspecific T wave abnormality no longer evident in Lateral leads Referred By: Jennifer Bocanegra Electronically Signed By:DIANE MCELROY
--- NOTE | 2024-04-22 07:42 | ED.SOB ---
HPI - SOB/Dyspnea General Chief Complaint: Dyspnea Stated Complaint: SOB Time Seen by Provider: 04/22/24 07:40 Source: patient Mode of arrival: ambulatory Limitations: no limitations History of Present Illness ED Provider: CHU WHITAKER PA-C HPI Narrative: 58 year old male with pmhx significant for COPD on 2L at baseline, previous tobacco smoker (30 pack yr history - Quit in 01/2024) GERD, diverticulitis presents to the ED today for evaluation of shortness of breath/ wheezing beginning last night. Reports cough x weeks productive of sputum. States this feels like an exacerbation of his COPD. Denies fever, chills, sore throat, chest pain, hemoptysis. No recent travel or long car rides. No known sick contacts. Related Data Home Medications ?Medication ?Instructions ?Recorded ?Confirmed acetaminophen 500 mg tablet 1,000 mg PO DAILY PRN Pain 12/09/23 02/13/24 albuterol sulfate 90 mcg/actuation 2 inh inhalation Q4H PRN shortness 12/09/23 02/13/24 aerosol inhaler of breath or wheezing polyethylene glycol 3350 17 17 g PO BEDTIME 12/09/23 02/13/24 gram/dose oral powder (Miralax) hydrochlorothiazide 25 mg tablet 25 mg PO DAILY 01/22/24 02/13/24 Previous Rx's ?Medication ?Instructions ?Recorded famotidine 20 mg tablet 20 mg PO DAILY #30 tabs 12/12/23 nicotine 21 mg/24 hr daily 21 mg transdermal DAILY #28 ea 12/12/23 transdermal patch umeclidinium 62.5 mcg-vilanterol 1 inh inhalation DAILY 30 days #1 01/04/24 25 mcg/actuation powdr for ea inhalation (Anoro Ellipta) CPAP (CPAP Machine/Device) #1 ea 01/24/24 prednisone 20 mg tablet 40 mg (2 x 20 mg) PO DAILY #8 tabs 02/16/24 ipratropium 20 mcg-albuterol 100 1 puff PO Q6H #12 mL 03/08/24 mcg/actuation mist for inhalation (Combivent Respimat) theophylline 400 mg 400 mg PO DAILY #30 tabs 03/13/24 tablet,extended release 24 hr furosemide 40 mg tablet 40 mg PO DAILY 30 days #30 tabs 03/28/24 ipratropium 0.5 mg-albuterol 3 mg 3 ml inhalation Q4H PRN wheezing 03/28/24 (2.5 mg base)/3 mL nebulization #180 mL soln Allergies Allergy/AdvReac Type Severity Reaction Status Date / Time No Known Allergies Allergy Unknown Verified 04/22/24 06:53 Review of Systems Review of Systems: Constitutional: No fever, chills, fatigue, night sweats, weight changes ENT/Mouth: No ear pain, hearing loss, nasal congestion, sinus pain, rhinorrhea, sore throat Eyes: No eye pain, swelling, redness, vision changes, discharge Cardio: No chest pain, palpitations, ORTEGA, orthopnea, peripheral edema Pulm: No dyspnea, hemoptysis, +SOB, +wheezing, +productive cough GI: No nausea, vomiting, hematemesis, abdominal pain, diarrhea, constipation, hematochezia, melena : No irregular bleeding, dysuria, frequency, urgency, hesitancy, hematuria, flank pain, urinary flow changes, urinary incontinence or retention MSK: No back pain, neck pain, joint pain, myalgias Skin: No lesions, rashes Neuro: No weakness, numbness, paresthesias, LOC, dizziness, headache Psych: No anxiety/panic, depression, SI/HI, AH/VH All other systems reviewed and are negative. [facility] Past Medical History Attestation statement: The following information was validated with the patient. Source: old records reviewed and nursing notes reviewed Medical History KIRILL (obstructive sleep apnea) Smoker COPD (chronic obstructive pulmonary disease) HTN (hypertension) Acid reflux Diverticulitis Surgical History Hx of colonoscopy History of colostomy reversal H/O colostomy Family History Family History Mother Diabetes Arthritis Sleep apnea COPD (chronic obstructive pulmonary disease) Father Stomach cancer Diabetes Arthritis Sister Arthritis Social History Social History Household Members: Family Housing: House Do you presently have visiting nurse or other home services: No Alcohol intake: former Comment: at bedside Patient Tobacco Use Status: Never used Tobacco Tobacco use type: Cigarette Cigarette Packs Per Day: 1 Cigarettes Per Day: 13 Years Smoked: 35 Smoked in Last 30 Days: No e-Cigarette/Vaping Use: Never Used Second Hand Smoke Exposure: No Use of substances other than those prescribed or required for medical reasons: No Advance Directives: Yes Advance Directives on File: Yes Advance Directives Date on File: 01/17/24 Do you have a plan to hurt others: No Plan service: No Current occupational status: employed Current occupation: [employer] Physical Exam Vital Signs: Vital Signs: Last Vital Signs Temp 99.2 F 04/22/24 11:12 Pulse 109 H 04/22/24 11:12 Resp 22 H 04/22/24 11:12 BP 159/80 H 04/22/24 11:12 Pulse Ox 94 04/22/24 11:12 O2 Del Method Nasal Cannula 04/22/24 11:12 O2 Flow Rate 3 04/22/24 11:12 BMI result Body Mass Index 40.9 hypertensive, tachycardic, and tachypneic General: Well appearing, in no acute distress. Skin: Warm, dry, intact. No rashes or lesions. Head: Normocephalic, atraumatic. EENT: Hearing is intact b/l. Conjunctiva clear. PERRLA.Moist mucous membranes.? Neck: Supple without LAD. FROM. Trachea midline.? Cardiac: Chest wall symmetric. RRR. Lungs: Increased effort of breathing. No accessory muscle use. No tripoding. Lungs with diffuse expiratory wheezes. Abdomen: Soft, non-tender, non-distended. Back: No midline spinous or paraspinal tenderness Ext: Upper and lower extremities atraumatic, without tenderness, deformity, swelling or erythema. Full ROM throughout. Neuro: AOx3. Normal speech. Ambulating with steady gait. Psych: Appropriate mood and affect. Responds appropriately to questions. Course Course Course Narrative: 923 -- CBC with slight leukocytosis to 11.4 without left shift. no anemia. h&h stable. chemistry without acute electrolyte abnormality requiring intervention. no MICHELLE. random glucose 125. initial trop 5.4 > will repeat for delta. BNP undetectable. patient has tested negative for covid/ flu/ rsv. chest xr showing linear opacity in the left mid-lower lung compatible with discoid atelectasis. Unchanged when compared to prior CXR. VBG with elevated bicarb, otherwise WNL. > patient receiving up draft, solumedrol, and IV mag. will re-eval. 1121 -- On re-evaluation, patient continues to report difficulty breathing. Speaking in 2-3 word sentences. Continues to have diffuse expiratory wheezes on auscultation. He is saturating around 95% on 2 L nasal cannula. > given continued symptoms despite treatment, I feel as though patient would benefit from admission for continued therapy with IV antibiotics. I discussed this with hospitalist Dr. Christianson who agrees to admission. Dr. Florian to place admission orders. Medications Administered Discontinued Medications Generic Name Dose Route Start Last Admin Trade Name Freq PRN Reason Stop Dose Admin Albuterol Sulfate 7.5 mg/ 0 mg 04/22/24 07:04 04/22/24 07:13 Albuterol/Ipratropium 3 ml INHALE 04/22/24 07:05 10 each ONCE ONE Administration Magnesium Sulfate 2 gm in 50 mls @ 150 mls/hr 04/22/24 08:36 04/22/24 09:51 Magnesium Sulfate/H2o IV 04/22/24 08:55 Infused ONCE ONE Infusion Levalbuterol HCl 3.75 mg 04/22/24 09:06 04/22/24 09:11 Levalbuterol Hcl 1.25 Mg/3 Ml Vial.Neb INHALE 04/22/24 09:07 3.75 mg ONCE ONE Administration Methylprednisolone Sodium Succinate 125 mg 04/22/24 08:02 04/22/24 09:01 Methylprednisolone Sod Succ 125 Mg/2 Ml Vial IVPUSH 04/22/24 08:03 125 mg ONCE ONE Administration Medical Decision Making Medical Decision Making MDM Narrative: 58 year old male with pmhx significant for COPD on 2L at baseline, previous tobacco smoker (30 pack yr history - Quit in 01/2024) GERD, diverticulitis presents to the ED today for evaluation of shortness of breath/ wheezing beginning last night. Patient hypertensive to 122/96, tachycardic to 116, tachypneic to 22, satting 89% on room air. Patient placed on 2 L nasal cannula with improvement to 93%. On exam he has increased effort of breathing. No tripoding. Speaking in 2-3 word sentences. Audible wheezes with diffuse expiratory wheezes on auscultation. Differential diagnosis includes bronchitis, pneumonia, acute exacerbation of asthma/COPD, viral syndrome, anemia, electrolyte abnormality, dehydration, ACS, arrhythmia. Plan for labs, vbg, ekg, viral serology, chest xr, ed bronch protocol, IV steroids/ mag and re-evaluation. Differential Diagnosis Differential Diagnoses: The differential diagnosis associated with the presentation includes as above Admission/Observation Consideration of admission/observation: Escalation of care including admission/observation considered Patient to be admitted to medicine for acute exacerbation of COPD. Consult Healthcare Provider Management of the patient was discussed with: Hospitalist (Dr. Christianson) Lab Data MDM Lab Attestation statement: I reviewed the patient's lab results. as above. 04/22/24 08:56 04/22/24 08:56 Labs: Lab Results 04/22/24 04/22/24 04/22/24 Range/Units 08:29 08:56 09:01 WBC 11.4 H (4.8-10.8) X10*3/uL RBC 5.20 (4.60-5.80) X10*6/uL Hgb 15.5 (14.0-18.0) g/dl Hct 47.4 (42.0-52.0) % MCV 91.2 (80.0-98.0) fL MCH 29.8 (27.0-33.0) pg MCHC 32.7 (31.0-36.0) g/dl RDW 15.0 (11.0-16.0) % Plt Count 352 (160-400) X10*3/uL MPV 9.5 (9.4-12.4) fL Immature Gran % (Auto) 0.4 (0.0-0.4) % Neut % (Auto) 57.7 (45-73) % Lymph % (Auto) 31.1 (20-40) % [place] % (Auto) 6.2 (2-11) % Eos % (Auto) 4.0 (0-4) % Baso % (Auto) 0.6 (0-2) % Lymph # (Auto) 3.5 (1.2-4.9) X10*3/uL [place] # (Auto) 0.7 (0.1-1.2) X10*3/uL Eos # (Auto) 0.5 H (0.0-0.4) X10*3/uL Baso # (Auto) 0.1 (0.0-0.2) X10*3/uL Abs Immat Gran (auto) 0.05 H (0.00-0.03) X10*3/uL Absolute Neuts (auto) 6.5 (2.0-8.3) x10*3/uL Absolute Nucleated RBC 0.000 (0.0-0.012) X10*3/uL Nucleated RBC % (auto) 0.0 (0.0-0.2) /100WBC PT 11.5 (10.9-12.4) SEC INR 1.0 (0.9-1.1) VBG pH 7.39 (7.32-7.43) VBG pCO2 48 mmHg VBG pO2 71 mmHg VBG HCO3 29 H (22-26) mmol/L VBG O2 Saturation 93.0 % VBG Base Excess 3.6 mmol/L Sodium 140 (135-145) mmol/L Potassium 3.6 (3.3-5.1) mmol/L Chloride 103 (96-108) mmol/L Carbon Dioxide 28 (22-29) mmol/L Anion Gap 13 (12-20) BUN 9 (9-16) mg/dL Creatinine 0.88 (0.5-1.4) mg/dL Estim Creat Clear Calc 126.6 Estimated GFR > 60 Random Glucose 125 H (60-115) mg/dL Calcium 9.9 (8.4-10.2) mg/dL Magnesium 2.0 (1.6-2.6) mg/dL Total Bilirubin 0.2 (0.0-1.0) mg/dL AST 19 (5-37) U/L ALT 27 (0-40) U/L Alkaline Phosphatase 119 H (39-117) U/L Troponin I High Sens 5.4 (<3.5-35.0) ng/L B-Natriuretic Peptide < 10 (<100) pg/mL Total Protein 7.6 (6.5-8.0) g/dL Albumin 3.7 (3.5-5.0) g/dL Influenza Type A (PCR) NEGATIVE (Negative) Influenza Type B (PCR) NEGATIVE (Negative) RSV RNA Qual (PCR) NEGATIVE (Negative) SARS-CoV-2 RNA (RT-PCR) NEGATIVE (Negative) Independent Interpretation I performed an independent interpretation of an: EKG and Plain X-Ray Interpretation: EKG showing sinus tachycardia at a rate of 120 beats per minute, QT 334, QTC 472, no acute ischemic changes or ST elevations. Chest x-ray showing linear opacity to left mid to lower lung, agree with radiologist's interpretation. Radiology Impression Discussion of test interpretation with radiology: I have reviewed the radiologist's reading. Radiologist Impression: EXAMINATION: XR CHEST CLINICAL INFORMATION: Shortness of breath COMPARISON: Prior chest November 2023 TECHNIQUE: Frontal view of the chest was obtained. FINDINGS: There is linear opacity in the left mid to lower lung unchanged compared to prior compatible with discoid atelectasis. Lungs otherwise clear. XR/XR chest 1V IMPRESSION: Linear opacity in the left mid to lower lung compatible with discoid atelectasis. Electronically signed by: Toni Fortune MD 04/22/2024 08:03 AM EDT RP Independent Historian Clinical information obtained from an independent historian. History obtained from or confirmed by: Spouse External Record Review External record reviewed: Inpatient record, Office record, Outpatient record, Prior outpatient labs, Prior outpatient radiology, Primary care record and Outside ED record Prescription Management I considered prescription management with: Other (steroids) Chronic Conditions Patient?s care impacted by: Other (COPD) Social Determinants Patient?s care significantly limited by Social Determinants of Health including: Other Social Determinant of Health Critical Care Time Critical Care Time Critical Care Time: Yes Total Critical Care Time: 35 Attestation: Critical care time in the amount of 35 minutes has been provided to the patient in terms of direct patient care, frequent reevaluation, consultation with hospitalist, review and interpretation of medical data and results, and management of potentially life-threatening conditions. This is all outside of any medical procedures. Discharge Plan Discharge Clinical Impression: Acute exacerbation of chronic obstructive airways disease Patient Disposition: Admitted As Inpatient Print Language: Burmese
[2024-04-22] MEDS: methylPREDNISolone Sod Succ 125 MG/2 ML VIAL IVPUSH (09:01)
[2024-04-22] MEDS: Magnesium Sulfate/H2O 2 GM/50 ML PIGGYBACK IV (09:01)
[2024-04-22 09:02] LABS: MANUAL DIFF FLAG NO
[2024-04-22 09:05] LABS: Basophils Absolute Auto 0.1 X10*3/uL (0.0-0.2); Basophils Percent Auto 0.6 % (0-2); Eosinophils Absolute Auto 0.5 X10*3/uL (0.0-0.4); Hematocrit 47.4 % (42.0-52.0); Hemoglobin 15.5 g/dl (14.0-18.0); Imm Gran Abs Auto 0.05 X10*3/uL (0.00-0.03); Imm Gran Pct Auto 0.4 % (0.0-0.4); Lymphocytes Absolute Auto 3.5 X10*3/uL (1.2-4.9); Lymphocytes Percent Auto 31.1 % (20-40); Mean Corpuscular HGB Conc 32.7 g/dl (31.0-36.0); Mean Corpuscular Hemoglobin 29.8 pg (27.0-33.0); Mean Corpuscular Volume 91.2 fL (80.0-98.0); Mean Platelet Volume 9.5 fL (9.4-12.4); Monocytes Absolute Auto 0.7 X10*3/uL (0.1-1.2); Monocytes Percent Auto 6.2 % (2-11); Neutrophils Absolute Auto 6.5 x10*3/uL (2.0-8.3); Neutrophils Percent Auto 57.7 % (45-73); Platelet Count 352 X10*3/uL (160-400); White Blood Count 11.4 X10*3/uL (4.8-10.8)
[2024-04-22 09:08] LABS: VBG Base Excess 3.6 mmol/L; VBG HCO3 29 mmol/L (22-26); VBG pCO2 48 mmHg; VBG pH 7.39 (7.32-7.43); VBG pO2 71 mmHg
[2024-04-22 09:09] LABS: Venous Blood Gas Refer to POC result
[2024-04-22 09:11] LABS: Prothrombin Time 11.5 SEC (10.9-12.4)
[2024-04-22] MEDS: levalbuterol HCL 1.25 MG/3 ML VIAL.NEB 3.75 MG INHALE (09:11)
[2024-04-22 09:13] LABS: Influenza A PCR NEGATIVE (Negative); Influenza B PCR NEGATIVE (Negative); Resp Syncy Virus RNA Qual PCR NEGATIVE (Negative); SARS COV2 PCR INHOUSE NEGATIVE (Negative)
[2024-04-22 09:18] LABS: Alanine Aminotransferase 27 U/L (0-40); Albumin Level 3.7 g/dL (3.5-5.0); Alkaline Phosphatase 119 U/L (39-117); Anion Gap 13 (12-20); Aspartate Amino Transferase 19 U/L (5-37); Bilirubin Total 0.2 mg/dL (0.0-1.0); Blood Urea Nitrogen 9 mg/dL (9-16); Calcium 9.9 mg/dL (8.4-10.2); Carbon Dioxide 28 mmol/L (22-29); Chloride 103 mmol/L (96-108); Creatinine Clr Calc Pharmacy 126.6; Estimated Glomerular Filt Rate > 60; Glucose Random 125 mg/dL (60-115); Potassium 3.6 mmol/L (3.3-5.1); Sodium 140 mmol/L (135-145); Total Protein 7.6 g/dL (6.5-8.0)
[2024-04-22 09:24] LABS: B Type Natriuretic Peptide < 10 pg/mL (<100)
[2024-04-22 09:25] LABS: Troponin-I High Sensitivity 5.4 ng/L (<3.5-35.0)
--- NOTE | 2024-04-22 11:26 | P.HPHOSP_ITS ---
History of Present Illness Date of Service: 04/22/24 Chief Complaint: Shortness of breath A 58-year-old male with a past medical history of COPD, over 30 pack-years of smoking (currently smoking about 1 pack daily and attempting to quit), obstructive sleep apnea (KIRILL) awaiting CPAP, chronic lower leg edema on Lasix, and GERD presented to the ED this morning with worsening shortness of breath since last night. He denies fever but reports a mild cough. His initial oxygen saturation was 89%, which has since improved. A chest X-ray showed no pneumonia, and tests for flu, RSV, and COVID-19 were negative. ED management included bronchodilators, IV steroids, and magnesium. Review of Systems 2 Review of Systems: +sob, cough, no fever Yes all other systems are reviewed and are negative [facility] Medical History KIRILL (obstructive sleep apnea) Smoker COPD (chronic obstructive pulmonary disease) HTN (hypertension) Acid reflux Diverticulitis Family History Mother Diabetes Arthritis Sleep apnea COPD (chronic obstructive pulmonary disease) Father Stomach cancer Diabetes Arthritis Sister Arthritis Surgical History Hx of colonoscopy History of colostomy reversal H/O colostomy Social History Household Members: Family Housing: House Do you presently have visiting nurse or other home services: No Alcohol intake: former Comment: at bedside Patient Tobacco Use Status: Never used Tobacco Tobacco use type: Cigarette Cigarette Packs Per Day: 1 Cigarettes Per Day: 13 Years Smoked: 35 Smoked in Last 30 Days: No e-Cigarette/Vaping Use: Never Used Second Hand Smoke Exposure: No Use of substances other than those prescribed or required for medical reasons: No Advance Directives: Yes Advance Directives on File: Yes Advance Directives Date on File: 01/17/24 Do you have a plan to hurt others: No Plan service: No Current occupational status: employed Current occupation: [employer] Allergies Allergy/AdvReac Type Severity Reaction Status Date / Time No Known Allergies Allergy Unknown Verified 04/22/24 06:53 Home Medications ?Medication ?Instructions ?Recorded ?Confirmed ?Last Taken ?Type acetaminophen 500 mg tablet 1,000 mg PO DAILY PRN Pain 12/09/23 04/22/24 Unknown History albuterol sulfate 90 mcg/actuation 2 inh inhalation Q4H PRN shortness 12/09/23 04/22/24 Unknown History aerosol inhaler of breath or wheezing polyethylene glycol 3350 17 17 g PO BEDTIME 12/09/23 04/22/24 04/21/24 History gram/dose oral powder (Miralax) hydrochlorothiazide 25 mg tablet 25 mg PO DAILY 01/22/24 04/22/24 04/21/24 History famotidine 20 mg tablet 20 mg PO DAILY PRN Heartburn 04/22/24 04/22/24 Unknown History ipratropium 0.5 mg-albuterol 3 mg 3 ml inhalation Q4-6H PRN wheezing 04/22/24 04/22/24 04/21/24 History (2.5 mg base)/3 mL nebulization soln prednisone 20 mg tablet 20 mg PO DAILY 04/22/24 04/22/24 04/21/24 History semaglutide (weight loss) 0.25 0.25 mg subcut WE 04/22/24 04/22/24 04/18/24 History mg/0.5 mL subcutaneous pen injector (Tony) Physical Exam 2 Vital Signs and Narrative: Vital Signs: Last Vital Signs Temp 99.2 F 04/22/24 11:12 Pulse 109 H 04/22/24 11:12 Resp 22 H 04/22/24 11:12 BP 159/80 H 04/22/24 11:12 Pulse Ox 94 04/22/24 11:12 O2 Del Method Nasal Cannula 04/22/24 11:12 O2 Flow Rate 3 04/22/24 11:12 BMI result Body Mass Index 40.9 Const: Other: General: AO X 3, no acute distress Resp: bilateral wheezes, no accessory muscles use, talk in full sentences CVS: S1,S2,RRR GI: +BS, NT, no distention Skin: No rash Neuro: motor grossly intact Psych: appropriate affect Results Labs 04/22/24 08:56 04/22/24 08:56 Labs: Laboratory Results - last 24 hr 04/22/24 04/22/24 04/22/24 08:29 08:56 09:01 MCV 91.2 MCH 29.8 MCHC 32.7 RDW 15.0 Plt Count 352 MPV 9.5 Immature Gran % (Auto) 0.4 Neut % (Auto) 57.7 Lymph % (Auto) 31.1 [place] % (Auto) 6.2 Eos % (Auto) 4.0 Baso % (Auto) 0.6 Lymph # (Auto) 3.5 [place] # (Auto) 0.7 Eos # (Auto) 0.5 H Baso # (Auto) 0.1 Abs Immat Gran (auto) 0.05 H Absolute Neuts (auto) 6.5 Absolute Nucleated RBC 0.000 Nucleated RBC % (auto) 0.0 PT 11.5 INR 1.0 VBG pH 7.39 VBG pCO2 48 VBG pO2 71 VBG HCO3 29 H VBG O2 Saturation 93.0 VBG Base Excess 3.6 Anion Gap 13 Estim Creat Clear Calc 126.6 Estimated GFR > 60 Random Glucose 125 H Calcium 9.9 Magnesium 2.0 Total Bilirubin 0.2 AST 19 ALT 27 Alkaline Phosphatase 119 H Troponin I High Sens 5.4 B-Natriuretic Peptide < 10 Total Protein 7.6 Albumin 3.7 Influenza Type A (PCR) NEGATIVE Influenza Type B (PCR) NEGATIVE RSV RNA Qual (PCR) NEGATIVE SARS-CoV-2 RNA (RT-PCR) NEGATIVE Imaging Radiologist's Impressions: Impressions Chest X-Ray 04/22/24 07:49 IMPRESSION: Linear opacity in the left mid to lower lung compatible with discoid atelectasis. Electronically signed by: Toni Fortune MD 04/22/2024 08:03 AM EDT Assessment and Plan (1) COPD exacerbation: Status: Acute Plan 58 male with a PMH significant for?done COPD, > 30+ pack-year smoking h/o but quit, KIRILL pending CPAP, chronic lower leg edema on Lasix, and GERD here with acute hypoxic respiratory failure d/t copd exacerbation Acute hypoxemic respiratory failure secondary to COPD exacerbation and KIRILL , no PNA -IV solu-medrol -bronchodilators scheduled and PRN -CPAP at night - azithromycin for pleiotropic effect -guaifenesin prn Severe KIRILL, in past has been on bipap -cpapa at night, GERD -continue famotidine Morbid obesity. Discussed importance of weight management as this may be contributing to worsening of other comorbidities HTN--resume home meds dvt prophylaxis- lovenox full code need for inpt: acute severe exacerbation of copd with hypoxia, needig iv steroid and closely montiroing and adjustement of oxygen Quality Stroke Does the patient have a stroke diagnosis?: No VTE Prior VTE?: No VTE Risk Level:: Medical - moderate - high VTE Device Contraindication: Treatment Not Indicated VTE Drug Contraindication: N/A - Med Ordered
--- NOTE | 2024-04-22 13:08 | PHA.MEDREC ---
Pharmacy Consult ? Medication Reconciliation Pharmacy has completed the medication reconciliation. Spoke with patient to confirm medications. He uses his nebulizer every day, his frequency depends on the severity of his symptoms. He confirmed Tony is on WE and had it last WE. He had no medications today, all yesterday.
[2024-04-22] MEDS: Azithromycin 500 MG in 0.9 % Sodium Chloride 250 ML 125 MG IV (13:09)
[2024-04-22] MEDS: Enoxaparin Sodium 40 MG/0.4 ML SYRINGE SUBCUT (13:09)
[2024-04-22] MEDS: Furosemide 40 MG TABLET PO (14:17)
[2024-04-22] MEDS: Theophylline Anhydrous ER 400 MG TAB.ER.24H PO (14:17)
[2024-04-22] MEDS: hydroCHLOROthiazide 25 MG TABLET PO (14:17)
[2024-04-22] MEDS: levalbuterol HCL 1.25 MG/3 ML VIAL.NEB 2.5 MG INHALE ×2 (15:09→19:40)
--- NOTE | 2024-04-22 19:00 | PC.NURSE ---
Report given to Hilary Tan RN
[2024-04-22] MEDS: polyethylene glycoL 3350 17 GM POWD.PACK PO (22:15)
[2024-04-22] MEDS: methylPREDNISolone Sod Succ 40 MG/ML VIAL IVPUSH (22:15)
--- NOTE | 2024-04-22 22:22 | PC.NURSE ---
Patient is alert and oriented x3, he reports chronic back pain ranging from 4-5/10 on 010 pain scale. Pain managed at home with Tylenol and Ibuprofen. Patient reports breathing improved, no wheezing at present, patient maintaining O2 Sat at 95-96% on 2 LPM NC. Patient medicated per SEP, he offers no complaints at this time, call heath 's reach.
[2024-04-23] VITALS (10 sets, daily range): BP systolic 141–143; BP diastolic 82–93; PULSE 98–120; RESP 16–22; TEMP 36.1–36.9; O2SAT 92–98; BMI 41.4
[2024-04-23] MEDS: 0.9 % Sodium Chloride Flush 3 ML SYRINGE IVFLUSH ×4 (00:32→23:15)
[2024-04-23 05:51] LABS: Alanine Aminotransferase 26 U/L (0-40); Albumin Level 3.9 g/dL (3.5-5.0); Alkaline Phosphatase 111 U/L (39-117); Anion Gap 13 (12-20); Aspartate Amino Transferase 18 U/L (5-37); Bilirubin Total 0.2 mg/dL (0.0-1.0); Blood Urea Nitrogen 14 mg/dL (9-16); Calcium 10.3 mg/dL (8.4-10.2); Carbon Dioxide 32 mmol/L (22-29); Chloride 98 mmol/L (96-108); Creatinine Clr Calc Pharmacy 96.9; Estimated Glomerular Filt Rate > 60; Glucose Random 151 mg/dL (60-115); Potassium 5.4 mmol/L (3.3-5.1); Sodium 138 mmol/L (135-145)
[2024-04-23] MEDS: methylPREDNISolone Sod Succ 40 MG/ML VIAL IVPUSH ×2 (08:47→21:07)
[2024-04-23] MEDS: hydroCHLOROthiazide 25 MG TABLET PO (08:48)
[2024-04-23] MEDS: Furosemide 40 MG TABLET PO (08:49)
[2024-04-23] MEDS: Theophylline Anhydrous ER 400 MG TAB.ER.24H PO (08:49)
[2024-04-23] MEDS: levalbuterol HCL 1.25 MG/3 ML VIAL.NEB INHALE ×3 (09:58→21:02)
[2024-04-23] MEDS: Enoxaparin Sodium 40 MG/0.4 ML SYRINGE SUBCUT (11:17)
[2024-04-23] MEDS: guaiFENesin 200 MG/10 ML 10 ML LIQUID PO ×2 (11:17→19:26)
--- NOTE | 2024-04-23 12:31 | P.PNIM_ITS ---
Subjective Subjective Date of Service: 04/23/24 Interval History: f/u on copd exacerbation, he's feeling better has persistent cough Review of Systems +sob, cough, Physical Exam 2 Vital Signs: Vital Signs: Last Vital Signs Temp 98.5 F 04/23/24 07:49 Pulse 98 04/23/24 09:59 Resp 18 04/23/24 09:59 BP 143/86 H 04/23/24 08:49 Pulse Ox 92 04/23/24 07:49 O2 Del Method Nasal Cannula 04/23/24 07:49 O2 Flow Rate 2.0 04/23/24 07:49 BMI result Body Mass Index 41.4 Const: Other: General: AO X 3, no acute distress Resp: dimished air movment, no accessory muscles use, talk in full sentences CVS: S1,S2,RRR GI: +BS, NT, no distention Skin: No rash Neuro: motor grossly intact Psych: appropriate affect Objective Data Active Medications Acetaminophen (Acetaminophen 325 Mg Tablet) 650 mg PO Q6H PRN PRN Reason: Pain, Mild (Pain Scale 1-3), fever or headache Albuterol Sulfate (Albuterol Sulfate 90 Mcg 8 Gm Inhaler) 2 puff INHALE Q4H PRN PRN Reason: shortness of breath or wheezing Benzonatate (Benzonatate 100 Mg Capsule) 100 mg PO TID PRN PRN Reason: Cough Calcium Carbonate (Calcium Carbonate 750 Mg Tab.Chew) 750 mg PO Q4H PRN PRN Reason: Heartburn Enoxaparin Sodium (Enoxaparin Sodium 40 Mg/0.4 Ml Syringe) 40 mg SUBCUT Q24H MILES Last Admin: 04/23/24 11:17 Dose: 40 mg Documented By: KINJAL Famotidine (Famotidine 20 Mg Tablet) 20 mg PO DAILY PRN PRN Reason: Heartburn Furosemide (Furosemide 40 Mg Tablet) 40 mg PO DAILY [facility]; Protocol Last Admin: 04/23/24 08:49 Dose: 40 mg Documented By: KINJAL Guaifenesin (Guaifenesin 200 Mg/10 Ml 10 Ml Liquid) 10 ml PO Q6H PRN PRN Reason: Cough Last Admin: 04/23/24 11:17 Dose: 10 ml Documented By: KINJAL Hydrochlorothiazide (Hydrochlorothiazide 25 Mg Tablet) 25 mg PO DAILY [facility]; Protocol Last Admin: 04/23/24 08:48 Dose: 25 mg Documented By: KINJAL Azithromycin 500 mg/ Sodium (Chloride) 250 mls @ 125 mls/hr IV Q24H [facility] Last Infusion: 04/22/24 15:21 Dose: Infused Documented By: HANNAH Levalbuterol HCl (Levalbuterol Hcl 1.25 Mg/3 Ml Vial.Neb) 1.25 mg INHALE Q3H PRN PRN Reason: Shortness of Breath/Wheezing Levalbuterol HCl (Levalbuterol Hcl 1.25 Mg/3 Ml Vial.Neb) 1.25 mg INHALE RQ4H WHILE AWAKE [facility] Last Admin: 04/23/24 12:02 Dose: Not Given Documented By: CLARIBEL Non-Admin Reason: Previously Administered Magnesium Hydroxide (Milk Of Magnesia 30 Ml Oral.Susp) 30 ml PO DAILY PRN PRN Reason: Constipation Melatonin (Melatonin 3 Mg Tablet) 6 mg PO BEDTIME PRN PRN Reason: Insomnia Methylprednisolone Sodium Succinate (Methylprednisolone Sod Succ 40 Mg/Ml Vial) 40 mg IVPUSH BID [facility] Last Admin: 04/23/24 08:47 Dose: 40 mg Documented By: KINJAL Non-Formulary Medication (Umeclidinium-Vilanterol [Anoro Ellipta]) 1 inhalation INHALE DAILY [facility] Polyethylene Glycol (Polyethylene Glycol 3350 17 Gm Powd.Pack) 17 gm PO DAILY PRN PRN Reason: Constipation Polyethylene Glycol (Polyethylene Glycol 3350 17 Gm Powd.Pack) 17 gm PO BEDTIME [facility] Last Admin: 04/22/24 22:15 Dose: 17 gm Documented By: KEVIN Sodium Chloride (0.9 % Sodium Chloride Flush 3 Ml Syringe) 3 ml IVFLUSH QSHIFT [facility] Last Admin: 04/23/24 08:48 Dose: 3 ml Documented By: KINJAL Theophylline (Theophylline Anhydrous Er 400 Mg Tab.Er.24h) 400 mg PO DAILY [facility] Last Admin: 04/23/24 08:49 Dose: 400 mg Documented By: KINJAL Labs 04/22/24 08:56 04/23/24 04:41 Labs: Laboratory Results - last 24 hr 04/23/24 04:41 Anion Gap 13 Estim Creat Clear Calc 96.9 Estimated GFR > 60 Random Glucose 151 H Calcium 10.3 H Total Bilirubin 0.2 AST 18 ALT 26 Alkaline Phosphatase 111 Total Protein 8.0 Albumin 3.9 Assessment and Plan (1) Morbid obesity with BMI of 40.0-44.9, adult: Status: Acute (2) KIRILL (obstructive sleep apnea): Status: Acute (3) Acute exacerbation of chronic obstructive airways disease: Status: Acute Plan 58 male with a PMH significant for?done COPD, > 30+ pack-year smoking h/o but quit, KIRILL pending CPAP, chronic lower leg edema on Lasix, and GERD here with acute hypoxic respiratory failure d/t copd exacerbation Acute hypoxemic respiratory failure secondary to COPD exacerbation and KIRILL , no PNA -IV solu-medrol -bronchodilators scheduled and PRN -CPAP at night, supposed to have titration study for bipap at home - azithromycin for pleiotropic effect -guaifenesin and tesalon for cough Severe KIRILL, -cpapa at night, -supposed to have titration study for bipap GERD -continue famotidine Morbid obesity. Discussed importance of weight management as this may be contributing to worsening of other comorbidities HTN--resume home meds dvt prophylaxis- lovenox full code need for inpt: acute severe exacerbation of copd with hypoxia, needig iv steroid and closely montiroing and adjustement of oxygen Quality Stroke Does the patient have a stroke diagnosis?: No VTE Prior VTE?: No VTE Risk Level:: Medical - moderate - high VTE Device Contraindication: Treatment Not Indicated VTE Drug Contraindication: N/A - Med Ordered
[2024-04-23] MEDS: Azithromycin 500 MG in 0.9 % Sodium Chloride 250 ML 125 MG IV (12:57)
[2024-04-23] MEDS: Albuterol Sulfate 90 MCG 8 GM INHALER 2 PUFF INHALE (13:10)
--- NOTE | 2024-04-23 13:36 | MHC.CM.PN ---
Patient lives in an apartment w/ and children. 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 [facility]. PCP Dr Boston HCP on file and verified. , Paz, is [facility]. DP: Goal is home w/ family. to transport. CM will continue to follow.
[2024-04-23 14:36] LABS: Anion Gap 16 (12-20); Carbon Dioxide 27 mmol/L (22-29); Chloride 97 mmol/L (96-108); Potassium 4.5 mmol/L (3.3-5.1); Sodium 135 mmol/L (135-145)
[2024-04-23] MEDS: polyethylene glycoL 3350 17 GM POWD.PACK PO (21:07)
[2024-04-23] MEDS: Benzonatate 100 MG CAPSULE PO (21:07)
[2024-04-24 03:07] VITALS: BP 130/78; PULSE 104; RESP 18; TEMP 37; O2SAT 92
--- NOTE | 2024-04-24 07:17 | PM.DS ---
DS: Providers Provider Date of Service: 04/24/24 Date of admission: 04/22/24 12:08 Primary care physician: Leonard Boston MD DS: Diagnosis Discharge Diagnosis (1) Morbid obesity with BMI of 40.0-44.9, adult: Status: Acute (2) KIRILL (obstructive sleep apnea): Status: Acute (3) Acute exacerbation of chronic obstructive airways disease: Status: Acute DS: Summary Hospital Course Hospital Course: admission hpi Chief Complaint: Shortness of breath A 58-year-old male with a past medical history of COPD, over 30 pack-years of smoking (currently smoking about 1 pack daily and attempting to quit), obstructive sleep apnea (KIRILL) awaiting CPAP, chronic lower leg edema on Lasix, and GERD presented to the ED this morning with worsening shortness of breath since last night. He denies fever but reports a mild cough. His initial oxygen saturation was 89%, which has since improved. A chest X-ray showed no pneumonia, and tests for flu, RSV, and COVID-19 were negative. ED management included bronchodilators, IV steroids, and magnesium. Hospital course: Patient presented with shortness of breath, cough, and was admitted for acute exacerbation of COPD and bronchitis. He was treated with IV steroids, bronchodilators via nebulizer, oxygen, and azithromycin for bronchitis. His condition has improved and will be discharged with Prednisone 40 mg daily for 2 more days (for a total of 5 days of steroids), to complete the course of azithromycin, and to resume home oxygen. Weight loss is advised to help with KIRILL. To follow up with his direct of real estate for arrangement of BiPAP titration. In the meantime, continue CPAP. Time Attestation Discharge Coordination Time (in mins): 35 Quality: Safe Use of Opioids Does Pt have an Active Cancer Diagnosis on the Problem List?: No Quality: Stroke Does the patient have a stroke diagnosis?: No Physical Exam Vital Signs: Vital Signs: Last Vital Signs Temp 98.6 F 04/24/24 03:07 Pulse 104 H 04/24/24 03:07 Resp 18 04/24/24 03:07 BP 130/78 04/24/24 03:07 Pulse Ox 92 04/24/24 03:07 O2 Del Method Nasal Cannula 04/24/24 03:07 O2 Flow Rate 2 04/24/24 03:07 BMI result Body Mass Index 41.4 General: AO X 3, no acute distress Resp: CTA bilateral CVS: S1,S2,RRR GI: +BS, NT, no distention Skin: No rash Neuro: motor grossly intact Psych: appropriate affect DS: Data Data Completed and Pending Completed studies during hospitalization [Text1]: Procedures Assistance with Respiratory Ventilation, Less than 24 Consecutive Hours, Continuous Positive Airway Pressure (02/13/24) Labs on day of discharge: Laboratory Results - last 24 hr 04/23/24 14:14 Sodium 135 Potassium 4.5 Chloride 97 Carbon Dioxide 27 Anion Gap 16 Discharge Plan Discharge Anticipated Discharge Date/Time: 04/24/24 07:19 Patient Disposition: Home, Self-Care Discharge Diagnosis: concurrent hypoxic respiratory failure due to COPD exacerbation. Referrals: Leonard Boston MD [Primary Care Provider] - 1 Week Discharge Medications: New prednisone 20 mg tablet 40 mg PO DAILY Qty: 6 0RF azithromycin 250 mg tablet 250 mg PO DAILY 2 Days Qty: 2 0RF Rx Instructions: next dose 04/25/24 Continued Anoro Ellipta 62.5-25 mcg/actuation blister with device 1 inh inhalation DAILY 30 Days Qty: 1 6RF Combivent Respimat 20-100 mcg/actuation mist 1 puff PO Q6H Qty: 12 2RF furosemide 40 mg tablet 40 mg PO DAILY 30 Days Qty: 30 2RF hydrochlorothiazide 25 mg tablet 25 mg PO DAILY (DME) CPAP Machine/Device Device See Rx Instructions .Route Qty: 1 0RF Rx Instructions: As directed. Auto cpap 5-20. with all supplies Length of need lifetime acetaminophen 500 mg Tablet 1,000 mg PO DAILY PRN (Reason: Pain) polyethylene glycol 3350 [Miralax] 17 gram/dose Powder 17 g PO BEDTIME albuterol sulfate 90 mcg/actuation HFA aerosol inhaler 2 inh inhalation Q4H PRN (Reason: shortness of breath or wheezing) Wegovy 0.25 mg/0.5 mL pen injector 0.25 mg subcut WE ipratropium-albuterol 0.5 mg-3 mg(2.5 mg base)/3 mL solution for nebulization 3 ml inhalation Q4-6H PRN (Reason: wheezing) prednisone 20 mg tablet 20 mg PO DAILY famotidine 20 mg tablet 20 mg PO DAILY PRN (Reason: Heartburn) theophylline 400 mg tablet extended release 24 hr 400 mg PO DAILY Qty: 30 6RF Discharge Orders: Discharge Order (Routine); Ordered 04/24/24 Ordered By: James Florian Diet: Advance to usual diet Activity on Discharge: As tolerated Stand Alone Forms: Patient Portal Discharge page Print Language: Nepalese Care Plan Goals: Recovery from COPD exacerbation and acute hypoxic respiratory failure Health Concerns: COPD obstructive sleep apnea ( KIRILL) obesity Plan of Treatment: take prednisone as directed use oxygen as previously prescribed take azithromycin for bronchitis follow-up with Dr. Steve reed Assessment: see above Discharge Date/Time: 04/24/24 11:32
[2024-04-24 07:40] VITALS: BP 146/77; PULSE 100; RESP 18; TEMP 36.3; O2SAT 92
--- NOTE | 2024-04-24 08:21 | MHC.CM.PN ---
Patient medically cleared for dc home self care via private transport.
[2024-04-24] MEDS: predniSONE 20 MG TABLET 40 MG PO (08:43)
[2024-04-24 08:44] VITALS: BP 146/77
[2024-04-24] MEDS: Furosemide 40 MG TABLET PO (08:44)
[2024-04-24] MEDS: hydroCHLOROthiazide 25 MG TABLET PO (08:44)
[2024-04-24] MEDS: guaiFENesin 200 MG/10 ML 10 ML LIQUID PO (08:44)
[2024-04-24] MEDS: Theophylline Anhydrous ER 400 MG TAB.ER.24H PO (08:44)
[2024-04-24] MEDS: 0.9 % Sodium Chloride Flush 3 ML SYRINGE IVFLUSH (08:44)
[2024-04-24 09:36] VITALS: PULSE 99; RESP 18; O2SAT 97
[2024-04-24] MEDS: levalbuterol HCL 1.25 MG/3 ML VIAL.NEB INHALE (09:36)
== END 2024-04-24 11:32 | disposition home or self-care (01) | DRG 190 ==
LOC: HO.ED 12:19 → HO.EDOVER 12:37 → HO.S3 04-23 05:06
PROVIDERS: Physician Assistant Medical; Admitting Provider Internal Medicine; Emergency Provider Emergency Medicine Emergency Medical Services; PCP Internal Medicine Medical Oncology; Visit Provider Internal Medicine
DX: J44.1 Chronic obstructive pulmonary disease with (acute) exacerbation (principal); J96.01 Acute respiratory failure with hypoxia; Z68.41 Body mass index [BMI] 40.0-44.9, adult; E66.01 Morbid (severe) obesity due to excess calories; K21.9 Gastro-esophageal reflux disease without esophagitis; G47.33 Obstructive sleep apnea (adult) (pediatric); Z20.822 Contact with and (suspected) exposure to COVID-19; Z99.81 Dependence on supplemental oxygen; Z87.891 Personal history of nicotine dependence; Z79.52 Long term (current) use of systemic steroids; Z79.899 Other long term (current) drug therapy
CPT/HCPCS: 0241U; 36415; 71045; 80051; 80053; 82803; 83735; 83880; 84484; 85025; 85610; 93005; 94640; 94660; 99285; J0456; J1650; J2919; J3475

== ENCOUNTER → 2024-04-22 12:08 | Outpatient (BNV) | payer OTHER, SELFPAY | PROVIDERS: Admitting Provider Internal Medicine; Emergency Provider Emergency Medicine Emergency Medical Services; PCP Internal Medicine Medical Oncology; Visit Provider Internal Medicine | DX: J44.1 Chronic obstructive pulmonary disease with (acute) exacerbation (principal); E66.01 Morbid (severe) obesity due to excess calories; Z68.41 Body mass index [BMI] 40.0-44.9, adult; G47.33 Obstructive sleep apnea (adult) (pediatric) | CPT/HCPCS: 99223; 99232; 99239 ==

== ENCOUNTER 2024-05-03 08:52 | Outpatient (AMB) | payer OTHER, SELFPAY ==
--- NOTE | 2024-05-03 08:58 | MHC.OFFVIS ---
Vital Signs 05/03/24 08:59 Height 5 ft 8 in Weight 282 lb BMI 42.9 BP 138/77 Blood Pressure Location Rt brachial Position Sitting Pulse 99 Pulse Source Doppler Pulse Oximetry (%) 99 Oxygen Delivery Method Room Air Intake Visit Reasons: kirill Allergies No Known Allergies Allergy (Unknown, Verified 04/22/24 06:53) HPI HPI kirill: Details: 58-year-old gentleman recent 30+ pack-year smoker, quit 04/2023 now followed for pulmonary emphysema, KIRILL now on CPAP, and dyspnea on exertion. After the last office visit patient has been hospitalized [facility] for acute hypercapnic respiratory failure . He also had his titration study showing that he needs BiPAP , his an IPPV order was updated, however he has not received his BiPAP machine yet. He continues on Anoro, theophylline, duo nebs, and Combivent with reasonable control of his symptoms. [facility] Medical History (Updated 05/03/24 @ 10:10 by Dagoberto Choudhury MD) KIRILL (obstructive sleep apnea) Smoker COPD (chronic obstructive pulmonary disease) HTN (hypertension) Acid reflux Diverticulitis Surgical History Hx of colonoscopy History of colostomy reversal H/O colostomy Family History Mother Diabetes Arthritis Sleep apnea COPD (chronic obstructive pulmonary disease) Father Stomach cancer Diabetes Arthritis Sister Arthritis Social History Household Members: Spouse Housing: Apartment Do you presently have visiting nurse or other home services: No Alcohol intake: former Comment: at bedside Patient Tobacco Use Status: Former Tobacco user Tobacco use type: Cigarette Cigarette Packs Per Day: 1 Cigarettes Per Day: 13 Years Smoked: 30 e-Cigarette/Vaping Use: Never Used Second Hand Smoke Exposure: No Advance Directives Date on File: 01/17/24 service: No Current occupational status: employed 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 Review of Systems Const Denies daytime sleepiness, Denies excessive sweating, Denies fatigue, Denies fever(s), Denies lethargy, Denies malaise, Denies night sweats, Denies snoring and Denies weight loss Eyes Denies blurry vision and Denies itchy eyes ENT Denies nasal congestion, Denies post nasal drip, Denies sinus pain, Denies sinus pressure and Denies other ( Thrush) Card Denies chest pain, Denies pedal edema, Denies dyspnea, Denies orthopnea and Denies paroxysmal nocturnal dyspnea Resp Denies cough, Denies hemoptysis, Denies excessive phlegm production, Denies dyspnea, Denies snoring and Denies wheezing GI Denies abdominal pain and Denies heartburn Musc Denies myalgias, Denies arthralgias and Denies joint swelling Skin/Breast Denies rash Neuro Denies memory loss and Denies seizure-like activity Psych Denies abnormal sleep pattern, Denies anxiety and Denies memory loss Endo Denies excessive sweating, Denies fatigue and Denies heat intolerance Liam/Lymph Denies easy bruising Aller/Immun Denies itchy eyes, Denies seasonal rhinorrhea and Denies wheezing Physical Exam Vital Signs: Last Vital Signs Pulse 99 05/03/24 08:59 BP 138/77 05/03/24 08:59 Pulse Ox 99 05/03/24 08:59 Oxygen Delivery Method Room Air 05/03/24 08:59 BMI result Body Mass Index 42.9 Const General: no acute distress and alert Nutritional Appearance: obese Orientation/consciousness: Other orientation findings ( oriented) HEENT Head: Yes atraumatic Eyes General: appearance normal, both eyes and all related structures Sclerae: sclerae normal EOM: EOMs intact bilaterally Neck Neck: Yes supple Lymphatic: no lymphadenopathy noted Resp Effort & Inspection: normal respiratory effort and no use of accessory muscles Auscultation: clear to auscultation bilaterally Cardio Rate: regular rate Rhythm: regular rhythm Heart sounds: no gallops, no murmurs and no rubs Skin General skin exam: other ( warm) Extrem General: No clubbing, No cyanosis and No edema Assessment & Plan Assessment & Plan (1) COPD (chronic obstructive pulmonary disease): Code(s): J44.9 - Chronic obstructive pulmonary disease, unspecified Category: Medical (2) CO2 retention: Code(s): E87.29 - Other acidosis Category: Medical (3) KIRILL (obstructive sleep apnea): Code(s): G47.33 - Obstructive sleep apnea (adult) (pediatric) Category: Medical Plan His COPD symptoms reasonably well controlled on his current regimen of Anoro, duo nebs, theophylline, Combivent, and albuterol MDI. Continue current regimen. Sleep study and titration study reviewed. Patient does require BiPAP at . Updated order placed. Patient is awaiting to receive his BiPAP machine. Coding Level of Care Code Est Pt Level 4 (78991) Complex EM visit Add On G2211 Diagnoses COPD (chronic obstructive pulmonary disease) J44.9 CO2 retention E87.29 KIRILL (obstructive sleep apnea) G47.33
[2024-05-03 08:59] VITALS: BP 138/77; PULSE 99; O2SAT 99; BMI 42.9
== END 2024-05-03 09:21 | disposition home or self-care (01) ==
PROVIDERS: PCP Internal Medicine Medical Oncology; Visit Provider Internal Medicine Pulmonary Disease
DX: J44.9 Chronic obstructive pulmonary disease, unspecified (principal); E87.29 Other acidosis; G47.33 Obstructive sleep apnea (adult) (pediatric)
CPT/HCPCS: 99214; G2211

== ENCOUNTER → 2024-05-03 08:52 | Outpatient (BNVA) | payer OTHER, SELFPAY | PROVIDERS: PCP Internal Medicine Medical Oncology; Visit Provider Internal Medicine Pulmonary Disease ==

== ENCOUNTER 2024-06-13 09:17 | Outpatient (AMB) | payer OTHER, SELFPAY ==
[2024-06-13 09:24] VITALS: BP 120/70; PULSE 91; O2SAT 93; BMI 43.2
--- NOTE | 2024-06-13 09:24 | A.OFFVIS_ITS ---
Vital Signs 06/13/24 09:24 Height 5 ft 8 in Weight 284 lb BMI 43.2 BP 120/70 Blood Pressure Location Rt brachial Position Sitting Pulse 91 Pulse Source Doppler Pulse Oximetry (%) 93 Oxygen Delivery Method Room Air Intake Visit Reasons: Obstructive sleep apnea Allergies No Known Allergies Allergy (Unknown, Verified 06/13/24 09:28) HPI HPI Obstructive sleep apnea: Details: 58-year-old gentleman recent 30+ pack-year smoker, quit 04/2023 now followed for pulmonary emphysema, KIRILL now on CPAP, and dyspnea on exertion. After the last office visit he was started on BiPAP , with significant improvement in his sleep symptoms. He is still having difficulties adjusting to using a BiPAP mas k, however his AHI index has fallen 10 fold from 112 down to 12 events per hour with significant symptomatic benefit. Patient continues to use Anoro, duo nebs, Combivent, and albuterol MDI with reasonable control of his underlying COPD symptoms. He denies recent exacerbations. [facility] Medical History (Updated 06/13/24 @ 09:49 by Dagoberto Choudhury MD) KIRILL (obstructive sleep apnea) Smoker COPD (chronic obstructive pulmonary disease) HTN (hypertension) Acid reflux Diverticulitis Surgical History Hx of colonoscopy History of colostomy reversal H/O colostomy Family History Mother Diabetes Arthritis Sleep apnea COPD (chronic obstructive pulmonary disease) Father Stomach cancer Diabetes Arthritis Sister Arthritis Social History Household Members: Spouse Housing: Apartment Do you presently have visiting nurse or other home services: No Alcohol intake: former Comment: at bedside Patient Tobacco Use Status: Former Tobacco user Tobacco use type: Cigarette Cigarette Packs Per Day: 1 Cigarettes Per Day: 13 Years Smoked: 30 e-Cigarette/Vaping Use: Never Used Second Hand Smoke Exposure: No Advance Directives Date on File: 01/17/24 service: No 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 occupational status: employed 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 Const Denies daytime sleepiness, Denies excessive sweating, Denies fatigue, Denies fever(s), Denies lethargy, Denies malaise, Denies night sweats, Denies snoring and Denies weight loss Eyes Denies blurry vision and Denies itchy eyes ENT Denies nasal congestion, Denies post nasal drip, Denies sinus pain, Denies sinus pressure and Denies other ( Thrush) Card Denies chest pain, Denies pedal edema, Denies dyspnea, Reports dyspnea on exertion, Denies orthopnea and Denies paroxysmal nocturnal dyspnea Resp Denies cough, Denies hemoptysis, Denies excessive phlegm production, Denies dyspnea, Reports dyspnea on exertion, Denies snoring and Denies wheezing GI Denies abdominal pain and Denies heartburn Musc Denies myalgias, Denies arthralgias and Denies joint swelling Skin/Breast Denies rash Neuro Denies memory loss and Denies seizure-like activity Psych Denies abnormal sleep pattern, Denies anxiety and Denies memory loss Endo Denies excessive sweating, Denies fatigue and Denies heat intolerance Liam/Lymph Denies easy bruising Aller/Immun Denies itchy eyes, Denies seasonal rhinorrhea and Denies wheezing Physical Exam Vital Signs: Last Vital Signs Pulse 91 06/13/24 09:24 BP 120/70 06/13/24 09:24 Pulse Ox 93 06/13/24 09:24 Oxygen Delivery Method Room Air 06/13/24 09:24 BMI result Body Mass Index 43.2 Const General: no acute distress and alert Nutritional Appearance: obese Orientation/consciousness: Other orientation findings ( oriented) HEENT Head: Yes atraumatic Eyes General: appearance normal, both eyes and all related structures Sclerae: sclerae normal EOM: EOMs intact bilaterally Neck Neck: Yes supple Lymphatic: no lymphadenopathy noted Resp Effort & Inspection: normal respiratory effort and no use of accessory muscles Auscultation: clear to auscultation bilaterally Cardio Rate: regular rate Rhythm: regular rhythm Heart sounds: no gallops, no murmurs and no rubs Skin General skin exam: other ( warm) Extrem General: No clubbing, No cyanosis and No edema Assessment & Plan Assessment & Plan (1) COPD (chronic obstructive pulmonary disease): Code(s): J44.9 - Chronic obstructive pulmonary disease, unspecified Category: Medical Plan: Reasonable control on current regimen of Anoro, Combivent, theophylline, duo nebs, and albuterol MDI. Continue current regimen. Patient also start pulmonary rehab program. (2) CO2 retention: Code(s): E87.29 - Other acidosis Category: Medical Plan: Improving with BiPAP therapy. (3) KIRILL (obstructive sleep apnea): Code(s): G47.33 - Obstructive sleep apnea (adult) (pediatric) Category: Medical Plan: Significant improvement with underlying sleep apnea symptoms AHI has decreased from 120 down to 12. Patient continues to adjusts to BiPAP therapy. (4) Personal history of nicotine dependence: Code(s): Z87.891 - Personal history of nicotine dependence Category: Medical Plan: Will obtain lung cancer screening CT chest. Orders: Orders CT lung screening Today Z87.891 - Personal history of nicotine dependence Medications: New ipratropium-albuterol 0.5 mg-3 mg(2.5 mg base)/3 mL 3 mL inhalation Q4-6H PRN 180 mL 6RF wheezing Z87.891 - Personal history of nicotine dependence Refilled umeclidinium-vilanterol 62.5-25 mcg/actuation (Anoro Ellipta) 1 inh inhalation DAILY 30 days 1 ea 6RF Z87.891 - Personal history of nicotine dependence ipratropium-albuterol 20-100 mcg/actuation (Combivent Respimat) 1 puff PO Q6H 12 mL 6RF Z87.891 - Personal history of nicotine dependence Coding Level of Care Code Est Pt Level 4 (07332) Complex EM visit Add On G2211 Diagnoses COPD (chronic obstructive pulmonary disease) J44.9 CO2 retention E87.29 KIRILL (obstructive sleep apnea) G47.33 Personal history of nicotine dependence Z87.891
== END 2024-06-13 09:40 | disposition home or self-care (01) ==
PROVIDERS: PCP Internal Medicine Medical Oncology; Visit Provider Internal Medicine Pulmonary Disease
DX: J44.9 Chronic obstructive pulmonary disease, unspecified (principal); E87.29 Other acidosis; G47.33 Obstructive sleep apnea (adult) (pediatric); Z87.891 Personal history of nicotine dependence
CPT/HCPCS: 99214; G2211

== ENCOUNTER → 2024-06-13 09:17 | Outpatient (BNVA) | payer OTHER, SELFPAY | PROVIDERS: PCP Internal Medicine Medical Oncology; Visit Provider Internal Medicine Pulmonary Disease ==

== ENCOUNTER 2024-07-03 10:00 | Outpatient (RCR) | payer OTHER, SELFPAY | END 2024-07-31 10:26 | disposition home or self-care (01) | LOC: HO.PR 10:00 | PROVIDERS: PCP Internal Medicine Medical Oncology; Visit Provider Internal Medicine Medical Oncology | DX: J43.9 Emphysema, unspecified (principal); J45.20 Mild intermittent asthma, uncomplicated; G47.30 Sleep apnea, unspecified | CPT/HCPCS: 94618; 94625; 99212 ==

== ENCOUNTER 2024-08-07 16:16 | Outpatient (REF) | payer OTHER, SELFPAY ==
--- NOTE | ~2024-08-07 | CT_ITS ---
CLINICAL HISTORY: Z87.891 - Personal history of nicotine dependence CT lung cancer screening (LDCT) Comparison: None Technique: Axial CT images of the chest using low-dose technique. Referring provider counseled the patient on shared decision-making for LDCT screening. Additional counseling was provided on smoking cessation. Effective radiation dose total: DLP 118.8 mGycm, CTDIvol 3.3 mGy. Findings: Lung screening specific: Few scattered 2-3 mm nodules, for example posterior left upper lobe on axial 28. No suspicious nodule identified. Pulmonary incidentals: Minimal centrilobular emphysema with a few small blebs of the lung apices. Mild airway thickening. Regions of atelectasis and/or scarring anteriorly at the lung bases. Non pulmonary incidentals: Coronary artery calcifications: Mild Limited upper abdomen: Unremarkable Other: None Impression: LungRADS 2 - Benign Appearance: Continue annual screening with low dose Chest CT in 12 months. ##L2# Category 1: Normal; continue annual screening Category 2: Benign appearance or behavior, continue annual screening Category 3: Probably benign, [address] recommended Category 4A: Suspicious, [address] recommended; may consider PET/CT Category 4B: Suspicious, Additional diagnostics and/or tissue sampling recommended Category 4X: Suspicious, Additional diagnostics and/or tissue sampling recommended Category 0: Recalls (incomplete screen due to Incomplete coverage, Noise, Respiratory motion, Expiration, Obscured by acute abnormality) This document has been electronically signed by: Dakota Reid MD on 08/08/2024 11:55:45
--- OUTSIDE RECORDS SUMMARY | 2024-08-07 18:09 | XMS_ITS ---
Author Organization Leonard Boston III, MD Address [address] [place] [address] [address] [place] [address] Care Team Providers Care Jersey Knitter Name Role Phone Leonard Boston Primary Care Provider Allergies Allergen (clinical drug ingredient) Drug/Non Drug Allergy documented on EMR Reaction Allergy Type Onset Date Status No Known Drug Allergy Unknown Drug Allergy Active REASON FOR VISIT Follow up Medications Medication SIG (Take, Route, Frequency, Duration) Notes Start Date End Date Status Theophylline ER 400 MG TAKE 1 TABLET BY MOUTH EVERY DAY Oral Active MiraLax 17 GM 1 packet mixed with 8 ounces of fluid Orally Once a day Active predniSONE 20 MG 1 tablet with food o r milk Orally Once a day 02/21/2024 Active Nicotine 21 MG/24HR 1 patch to skin Transdermal Once a day 02/22/2023 Active Wegovy 0.25 MG/0.5ML 0.5 mL Subcutaneous weekly 03/28/2024 Active Albuterol Sulfate HFA 108 (9 0 Base) MCG/ACT TAKE 2 PUFFS BY MOUTH NEEDED EVERY 4 HOURS X30 DAYS Active Metoprolol Succinate ER 50 MG 1 tablet O rally Once a day 12/25/2021 Active Tadalafil 20 MG 1 tablet Orally Once a day 02/16/2021 Active [facility] Purelax 17 GM/SCOOP (Prior Auth#:[id number]) Oral Active hydroCHLOROthiazide 25 MG TAKE 1 TABLET BY MOUTH EVERY DAY Active Social History Tobacco Use: Social History Observation Description Date Details (start date - stop date) Former Smoker NA - NA Sex Assigned At : Social History Observation Description Sex Assigned At Male Tobacco Use/Smoking Question Answer Notes Patient is a former smoker Encounters Encounter Location Date Provider Diagnosis Leonard Boston III, MD [address] [place] [address] [address] [place] [address] 05/29/2024 Leonard Boston Essential hypertensi on I10 Assessments Encounter Date Diagnosis (ICD Code) Assessment Notes Treat ment Notes Treatment Clinical Notes 05/29/2024 Essential hypertension (ICD-10 - I10) His blood pressure is controlled. He will benefit from additional reduction his pressure. He will return to the office in the near future to check this again.He will be treated. If necessary. Plan Of Treatment Medication Medication Name Sig Start Date Stop Date Notes Theophylline ER 400 MG TAKE 1 TABLET BY MOUTH EVERY DAY Oral MiraLax 17 GM 1 packet mixed with 8 ounces of fluid Orally Once a day predniSONE 20 MG 1 tablet with food o r milk Orally Once a day 02/21/2024 Nicotine 21 MG/24HR 1 patch to skin Transdermal Once a day 02/22/2023 Wegovy 0.25 MG/0.5ML 0.5 mL Subcutaneous weekly 03/28/2024 Albuterol Sulfate HFA 108 (9 0 Base) MCG/ACT TAKE 2 PUFFS BY MOUTH NEEDED EVERY 4 HOURS X30 DAYS Metoprolol Succinate ER 50 MG 1 tablet O rally Once a day 12/25/2021 Tadalafil 20 MG 1 tablet Orally Once a day 02/16/2021 [facility] Purelax 17 GM/SCOOP (Prior Auth#:[id number]) Oral hydroCHLOROthiazide 25 MG TAKE 1 TABLET BY MOUTH EVERY DAY Next Appt Details Provider Name:Leonard Boston, 03/11/2025 09:30:00 AM, [address] [place] [address] [address], [place], [address], Progress Notes * NICKY PÉREZ ADOB: 8 (58 yo M)Acc No.[id number]:05/29/2024 Progress Notes Patient:?BETO NICKY Flores Provider:?Leonard Boston MD :1965???Age:58 Y???Sex:Male Pratik e:05/29/2024 Address:[address] [place] [address], [address], [id number] Subjective: * Chief Complaints: * ???1. Follow up. * HPI: ???COVID-19 Screening:?Questions?Have you had any new onset fever, chills, cough, congestion, sore throat, shortness of breath, muscle aches??No ?Have you been exposed to the virus within the last 10 days??No ?Have you travelled internationally in the last 10 days??No ?Have you been exposed to COVID-19 in the past??No * ROS:?General/Constitutional:?pain?only normal aches and pains.?Chills?denies.?Fatigue?admits.?Fever?denies.?ENT:?Decreased hearing?denies.?Respiratory:?Cough?denies.?Cardiovascular:?Chest pain with exertion?denies.?Dyspnea on exertion?denies.?Shortness of breath?denies.?Gastrointestinal:?Constipation?denies.?Decreased appetite?denies.?Diarrhea?denies.?Heartburn?denies.?Nausea?denies.?Rectal bleeding?denies.?Vomiting?denies.?Hematology:?bruising?denies.?petechiae?denies.?Swollen glands?none have been noted.?Genitourinary:?Frequent urination?denies.?Musculoskeletal:?Muscle aches?denies.?Painful joints?denies.?Sciatica?denies.?Weakness?denies.?Skin:?Itching?denies.?Rash?denies.?Skin lesion(s)?denies.?Neurologic:?Difficulty speaking?denies.?Dizziness?denies.?Headache?denies.?Low back pain?denies.?Psychiatric:?Depressed mood?denies.? 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 * Surgical History:?colostomy for diverticulitis 2012, closure of colostomy 2012, complete dental extractions , umbilical hernia, asymptomatic , right middle cerebral artery 3 mm aneurysm , No history . * Hospitalization/Major Diagno stic Procedure:?diverticulitis 2012, Hospitalized for asthma attack . * Family History:?Father: anna allison 73 yrs, Gastric cancer, diagnosed with Cancer.?Mother: 60 yrs, Diabetes, asthma, coronary artery disease, sleep apnea, diagnosed with DM.?Son(s): alive.?Daughter(s): alive.?Siblings: alive.?2 brother(s) , 1 sister(s) - healthy. 1 son(s) , 2 daughter(s) - healthy. .? His father is alive with gastric cancer. His mother in her 60s with diabetes asthma coronary artery disease and sleep apnea. They lived in [place]. He has 2 brothers with asthma and one sister with diabetes. There is no history of breast cancer. He is not aware of any inherited cancer syndromes. * Social History:?Tobacco Use:?Tobacco Use/Smoking?Patient is a?former smoker ???He smokes a package of cigarettes daily. He has a fiance, Wes. He has 3 children one son and 2 daughters. They are healthy and well. Smoking - Quit 3-4 months ago. * Medications:?Taking Albutero l Sulfate HFA 108 (90 Base) MCG/ACT Aerosol Solution TAKE 2 PUFFS BY MOUTH NEEDED EVERY 4 HOURS X30 DAYS , Taking hydroCHLOROthiazide 25 MG Tablet TAKE 1 TABLET BY MOUTH EVERY DAY , Taking [facility] Purelax 17 GM/SCOOP Powder (Prior Auth#:[id number]) Oral , Taking Tadalafil 20 MG Tablet 1 tablet Orally Once a day , Taking Metoprolol Succinate ER 50 MG Tablet Extended Release 24 Hour 1 tablet Orally Once a day , Taking Nicotine 21 MG/24HR Patch 24 Hour 1 patch to skin Transdermal Once a day , Taking predniSONE 20 MG Tablet 1 tablet with food or milk Orally Once a day , Taking MiraLax 17 GM Packet 1 packet mixed with 8 ounces of fluid Orally Once a day , Taking Theophylline ER 400 MG Tablet Extended Release 24 Hour TAKE 1 TABLET BY MOUTH EVERY DAY Oral , Taking Wegovy 0.25 MG/0.5ML Solution Auto-injector 0.5 mL Subcutaneous weekly , Medication List reviewed and reconciled with the patient * Allergies:?No Known Drug All ergy. Objective: * Vitals:? * Examination: ???General Examination: ?GENERAL APPEARANCE:?pleasant, well nourished, well developed, in no acute distress, calm and relaxed.?HEAD:?atraumatic, normocephalic.?EYES:?eomi, perrla, anicteric, conjugate.?EARS:?normal.?NOSE:?septum intact.?ORAL CAVITY:?normal, unremarkable.?NECK/THYROID:?no jugular venous distention, no carotid bruit, thyroid normal.?LYMPH NODES:?no enlarged lymph nodes,spleen normal.?SKIN:?no suspicious lesions, anicteric.?HEART:?no clicks, gallops, murmurs, or rubs, regular rhythm, S1, S2 normal, no s3, or vascular bruits.?LUNGS:?clear to auscultation .?BREASTS:??no masses palpable bilaterally.?ABDOMEN:?bowel sounds normal, no ascites, no organomegaly, no mass.?RECTAL EXAM:?not examined.?MUSCULOSKELETAL:?extremities unremarkable, no clubbing, cyanosis or edema.?PERIPHERAL PULSES:?normal.?NEUROLOGIC:?alert and oriented, cranial nerves 2-12 grossly intact, deep tendon reflexes 2+ symmetrical, motor strength normal upper and lower extremities, sensory exam intact.?PSYCH:?alert, oriented.? Assessment: * Assessment: 1.?Essential hypertension - I10???Notes :His blood pressure is controlled. He will benefit from additional reduction his pressure. He will return to the office in the near future to check this again.He will be treated. If necessary.??? Plan: * Treatment: 2.?Others? Continue Albuterol Sulfate HFA Aerosol Solution, 108 (90 Base) MCG/ACT, TAKE 2 PUFFS BY MOUTH NEEDED EVERY 4 HOURS X30 DAYS;?Continue hydroCHLOROthiazide Tablet, 25 MG, TAKE 1 TABLET BY MOUTH EVERY DAY;?Continue [facility] Purelax Powder, 17 GM/SCOOP, (Prior Auth#:[id number]), Oral;?Continue Tadalafil Tablet, 20 MG, 1 tablet, Orally, Once a day;?Continue Metoprolol Succinate ER Tablet Extended Release 24 Hour, 50 MG, 1 tablet, Orally, Once a day;?Continue Nicotine Patch 24 Hour, 21 MG/24HR, 1 patch to skin, Transdermal, Once a day;?Continue predniSONE Tablet, 20 MG, 1 tablet with food or milk, Orally, Once a day.?? * Images: * The named appointment provid er may or may not be the originator of this progress note, and it is not deemed complete until electronically signed by the appointment provider. Sign off status: Pending * Provider:?Leonard Boston MD Date:?11/2023 Generated for Basim hair/Vanessa/eTmiguelsmitting on:?08/07/2024 06:09 PM EST History and Physical Notes * HPI (History of Present Illness) Category Sub-Category Detail Notes COVID-19 Screening Questions Have you had any new onset fever, chills, cough, congestion, sore throat, shortness of breath, muscle aches?: No Have you been exposed to the virus withi n the last 10 days?: No Have you travelled internationally in [facility] last 10 days?: No Have you been exposed to COVID-19 in the past?: No Examination Category Sub-Category Detail Notes General Examination GENERAL APPEARANCE: pleasant , well nourished, well developed, in no acute distress, calm and relaxed HEAD: atraumatic, normocep halic EYES: eomi, perrla, anicte katina, conjugate EARS: normal NOSE: septum intact NECK/THYROID: no jugular venous di stention, no carotid bruit, thyroid normal HEART: no clicks, gallops, murmurs, or rubs, regular rhythm, S1, S2 normal, no s3, or vascular bruits LUNGS: clear to auscultatio n ABDOMEN: bowel sounds normal, no ascites, no organomegaly, no mass NEUROLOGIC: alert and oriented, cranial nerves 2-12 grossly intact, deep tendon reflexes 2+ symmetrical, motor strength normal upper and lower extremities, sensory exam intact SKIN: no suspicious lesion s, anicteric PERIPHERAL PULSES: normal BREASTS: no masses palpable b ilaterally MUSCULOSKELETAL: extremities unremark able, no clubbing, cyanosis or edema LYMPH NODES: no enlarged lymph no abimbola,spleen normal RECTAL EXAM: not examined PSYCH: alert, oriented ORAL CAVITY: normal, unremarkable
--- OUTSIDE RECORDS SUMMARY | 2024-08-07 18:10 | XMS_ITS ---
Author Organization Leonard Boston III, MD Address [address] [place] [address] [place] [address] Care Team Providers Care Regulatory Product Manager Name Role Phone Leonard Boston Primary Care Provider REASON FOR VISIT Return to Work Note Social History Sex Assigned At : Social History Observation Description Sex Assigned At Male Encounters Encounter Location Date Provider Diagnosis Leonard Boston III, MD [address] [place] [address] [place] [phone] 04/30/2024 Leonard Boston Plan Of Treatment Next Appt Details Provider Name:Leonard Boston, 03/11/2025 09:30:00 AM, [address] [place] [address] [place], [address], Progress Notes * NICKY PÉREZ ADOB: 8 (58 yo M)Acc No.[id number]:04/30/2024 Patient:?NICKY PÉREZ :1965???Age:58 Y???Sex:Male Address:[address] [place] [address], [address], [place], [address] * true * Date:? Generated for Cecilyi reginaldo/Vanessa/eTransmitting on:?08/07/2024 06:09 PM EST
--- OUTSIDE RECORDS SUMMARY | 2024-08-07 18:10 | XMS_ITS ---
Author Organization Leonard Boston III, MD Address [address] [place] [address] [address] [place] [id number] Care Team Providers Care Investor Relations Associate Name Role Phone Leonard Boston Primary Care Provider [phone] Allergies Allergen (clinical drug ingredient) Drug/Non Drug Allergy documented on EMR Reaction Allergy Type Onset Date Status No Known Drug Allergy Unknown Drug Allergy Active REASON FOR VISIT Asthma, Emphysema, Hyperlipidemia, GERD, Hypertension, Morbid obesity, Sleep apnea Medications Medication SIG (Take, Route, Frequency, Duration) Notes Start Date End Date Status hydroCHLOROthiazide 25 MG TAKE 1 TABLET BY MOUTH EVERY DAY Active Albuterol Sulfate HFA 108 (9 0 Base) MCG/ACT TAKE 2 PUFFS BY MOUTH NEEDED EVERY 4 HOURS X30 DAYS Active Wegovy 0.25 MG/0.5ML 0.5 mL Subcutaneous weekly 03/28/2024 Active Theophylline ER 400 MG TAKE 1 TABLET BY MOUTH EVERY DAY Oral Active MiraLax 17 GM 1 packet mixed with 8 ounces of fluid Orally Once a day Active predniSONE 20 MG 1 tablet with food o r milk Orally Once a day 02/21/2024 Active Nicotine 21 MG/24HR 1 patch to skin Transdermal Once a day 02/22/2023 Active Metoprolol Succinate ER 50 MG 1 tablet O rally Once a day 12/25/2021 Active Tadalafil 20 MG 1 tablet Orally Once a day 02/16/2021 Active [facility] Purelax 17 GM/SCOOP (Prior Auth#:[id number]) Oral Active Social History Tobacco Use: Social History Observation Description Date Details (start date - stop date) Former Smoker NA - NA Sex Assigned At : Social History Observation Description Sex Assigned At Male Tobacco Use/Smoking Question Answer Notes Patient is a former smoker Alcohol Screen Question Answer Notes How often did you have a dri nk containing alcohol in the past year? 2 to 4 times a month (2 points) How many drinks did you have on a typical day when you were drinking in the past year? 1 or 2 drinks (0 point) How often did you have 6 or more drinks on one occasion in the past year? Never (0 point) Vital Signs Temperature 98.1 degrees Fahrenheit 05/01/20 24 Blood pressure systolic 143 mm Hg 05/01/20 24 Blood pressure diastolic 89 mm Hg 024 Heart Rate 104 /min 05/01/2024 Height 67 in 05/01/2024 Weight 281 lbs 05/01/2024 BMI 44.01 kg/m2 05/01/2024 Encounters Encounter Location Date Provider Diagnosis Leonard Boston III, MD [address] [place] [address] [place] [address] 05/01/2024 Leonard Boston Essential hypertensi on I10 ; Pulmonary emphysema, unspecified emphysema type J43.9 ; Sleep apnea G47.30 ; Former smoker Z87.891 ; Morbid obesity E66.01 and BPH (benign prostatic hypertrophy) N40.0 Assessments Encounter Date Diagnosis (ICD Code) Assessment Notes Treatment Notes Treatment Clinical Notes 05/01/2024 Essential hypertension (ICD-10 - I10) His blood pressure is controlled. He will benefit from additional reduction his pressure. He will return to the office in the near future to check this again.He will be treated. If necessary. 05/01/2024 Pulmonary emphysema, unspecified emphysema type (ICD-10 - J43.9) He is wearing oxygen at home now. His french cord binder is Dr. Choudhury. He will be seen monthly. Was recently hospitalized for several days with impending respiratory failure. He has been compliant with his medications. A long-term plan will be regular exercise aggressive weight reduction healthy diet to continue to refrain from smoking. He was referred back to pulmonary. 05/01/2024 Sleep apnea (ICD-10 - G47.30) He will remain under the care of the current pulmonary physician. 05/01/2024 Former smoker (ICD-10 - Z87.891) We made a plan to resist the labs in times of stress and illness. He says he is committed to not smoking. 05/01/2024 Morbid obesity (ICD-10 - E66.01) He has lost 2 pounds. We reviewed his diet and nutrition. He was begun on Wegovy injections 05/01/2024 BPH (benign prostatic hypertrophy) (ICD-10 - N40.0) He rises from sleep once or twice a night to urinate. We have discussed lifestyle modification as well as to reduce nocturnal urinating. Plan Of Treatment Medication Medication Name Sig Start Date Stop Date Notes hydroCHLOROthiazide 25 MG TAKE 1 TABLET BY MOUTH EVERY DAY Albuterol Sulfate HFA 108 (9 0 Base) MCG/ACT TAKE 2 PUFFS BY MOUTH NEEDED EVERY 4 HOURS X30 DAYS Wegovy 0.25 MG/0.5ML 0.5 mL Subcutaneous weekly 03/28/2024 Theophylline ER 400 MG TAKE 1 TABLET BY MOUTH EVERY DAY Oral MiraLax 17 GM 1 packet mixed with 8 ounces of fluid Orally Once a day predniSONE 20 MG 1 tablet with food o r milk Orally Once a day 02/21/2024 Nicotine 21 MG/24HR 1 patch to skin Transdermal Once a day 02/22/2023 Metoprolol Succinate ER 50 MG 1 tablet O rally Once a day 12/25/2021 Tadalafil 20 MG 1 tablet Orally Once a day 02/16/2021 [facility]S Purelax 17 GM/SCOOP (Prior Auth#:[id number]) Oral Next Appt Details Follow Up: 4 Weeks, Reason: ov Provider Name:Leonard Boston, 03/11/2025 09:30:00 AM, [address] [place] [address] DR, [place] [address], [place], [id number], Progress Notes * NICKY PÉREZ ADOB: 8 (58 yo M)Acc No.[id number]:05/01/2024 Progress Notes Patient:?OSCAR PÉREZBELLA Flores Provider:?Leonard Boston MD :1965???Age:58 Y???Sex:Male Pratik e:05/01/2024 Address:[address] [place] [address], [facility], [id number] Subjective: * Chief Complaints: * ???AsthmaEmphysemaHyperlipid emiaGERDHypertensionMorbid obesitySleep apnea * HPI: ???COVID-19 Screening:?Questions?Have you experienced fever, chills, cough, sore throat, shortness of breath, difficulty breathing, muscle aches, loss of taste or smell??No ?Have you been exposed to the virus within the last 10 days??No ?Have you travelled internationally in the last 10 days??No ?Have you been exposed to COVID-19 in the past??Yes ???:?The patient, a 58-year-old male, was recently hospitalized due to an asthma attack. Since his discharge a week ago, he has been taking his medications correctly and reports that his breathing has been fine. He has been using a CPAP machine for sleep apnea and has had a recent sleep study. He reports some coughing, which he attributes to the use of the CPAP mask. He has not had any fever. He also mentions that he has emphysema. He has quit smoking about 3-4 months ago. He had a CT angiogram of the chest in January to check for pulmonary embolism, which was negative. His thoracic aorta, heart, and bones were reported as normal. He has been losing weight, with a decrease from 292 lbs to 281 lbs since February 20. His blood sugar was slightly elevated at 172. Blood Sugar Level is 172. * ROS:?General/Constitutional:?pain?only normal aches and pains.?Chills?denies.?Fatigue?admits.?Denies?Fever,?denies.?ENT:?Decreased hearing?denies.?Respiratory:?Cough?denies.?Cardiovascular:?Chest pain with exertion?denies.?Dyspnea on exertion?with moderate activity.?Shortness of breath?that is moderate.?Gastrointestinal:?Constipation?occasional.?Decreased appetite?denies.?Diarrhea?denies.?Heartburn?denies.?Nausea?denies.?Rectal bleeding?denies.?Vomiting?denies.?Hematology:?bruising?denies.?petechiae?denies.?Swollen glands?none have been noted.?Genitourinary:?Frequent urination?once a night.?Musculoskeletal:?Muscle aches?denies.?Painful joints?denies.?Sciatica?denies.?Weakness?denies.?Skin:?Itching?denies.?Rash?denies.?Skin lesion(s)?denies.?Neurologic:?Difficulty speaking?denies.?Dizziness?denies.?Headache?denies.?Low back pain?denies.?Psychiatric:?Depressed mood?denies.? * Medical History:? * Surgical History:?colostomy for diverticulitis 2013closure of colostomy 2013complete dental extractions umbilical hernia, asymptomatic right middle cerebral artery 3 mm aneurysm No history * Hospitalization/Major Diagno stic Procedure:?diverticulitis 2013Hospitalized for asthma attack * Family History:?Father: anna allison 73 yrs, [...] disease and sleep apnea. They lived in [place]. He has 2 brothers with asthma and one sister with diabetes. There is no history of breast cancer. He is not aware of any inherited cancer syndromes. * Social History:?Tobacco Use:?Tobacco Use/Smoking?Patient is a?former smoker ???Drugs/Alcohol:?Drugs?Have you used drugs other than those for medical reasons in the past 12 months? No.?Alcohol Screen?How often did you have a drink containing alcohol in the past year??2 to 4 times a month (2 points) ?How many drinks did you have on a typical day when you were drinking in the past year??1 or 2 drinks (0 point) ?How often did you have 6 or more drinks on one occasion in the past year??Never (0 point) ???He smokes a package of cigarettes daily. He has a fiance, Wes. He has 3 children one son and 2 daughters. They are healthy and well. Smoking - Quit 3-4 months ago. * Medications:?TakingAlbuterol Sulfate HFA 108 (90 Base) MCG/ACT Aerosol Solution TAKE 2 PUFFS BY MOUTH NEEDED EVERY 4 HOURS X30 DAYS hydroCHLOROthiazide 25 MG Tablet TAKE 1 TABLET BY MOUTH EVERY DAY [facility]S Purelax 17 GM/SCOOP Powder (Prior Auth#:[id number]) Oral Tadalafil 20 MG Tablet 1 tablet Orally Once a day Metoprolol Succinate ER 50 MG Tablet Extended Release 24 Hour 1 tablet Orally Once a day Nicotine 21 MG/24HR Patch 24 Hour 1 patch to skin Transdermal Once a day predniSONE 20 MG Tablet 1 tablet with food or milk Orally Once a day MiraLax 17 GM Packet 1 packet mixed with 8 ounces of fluid Orally Once a day Theophylline ER 400 MG Tablet Extended Release 24 Hour TAKE 1 TABLET BY MOUTH EVERY DAY Oral Wegovy 0.25 MG/0.5ML Solution Auto-injector 0.5 mL Subcutaneous weekly , stop date 10/10/2024Medication List reviewed and reconciled with the patientTaking Albuterol Sulfate HFA 108 (90 Base) MCG/ACT Aerosol Solution TAKE 2 PUFFS BY MOUTH NEEDED EVERY 4 HOURS X30 DAYS Taking hydroCHLOROthiazide 25 MG Tablet TAKE 1 TABLET BY MOUTH EVERY DAY Taking [facility] Purelax 17 GM/SCOOP Powder (Prior Auth#:[id number]) Oral Taking Tadalafil 20 MG Tablet 1 tablet Orally Once a day Taking Metoprolol Succinate ER 50 MG Tablet Extended Release 24 Hour 1 tablet Orally Once a day Taking Nicotine 21 MG/24HR Patch 24 Hour 1 patch to skin Transdermal Once a day Taking predniSONE 20 MG Tablet 1 tablet with food or milk Orally Once a day Taking MiraLax 17 GM Packet 1 packet mixed with 8 ounces of fluid Orally Once a day Taking Theophylline ER 400 MG Tablet Extended Release 24 Hour TAKE 1 TABLET BY MOUTH EVERY DAY Oral Taking Wegovy 0.25 MG/0.5ML Solution Auto-injector 0.5 mL Subcutaneous weekly , stop date 10/10/2024Medication List reviewed and reconciled with the patient * Allergies:?No Known Drug All ergyno[Allergies Verified] Objective: * Vitals:?Ht: 67, Wt: 281, BMI :44.01, BP: 143/89, HR: 104, Temp: 98.1, Wt-k.46. * ???Past Orders: Lab:URINE DIP STICK * Collection Date 03/06/2024 02/28/2023 01/19/2022 Collection Time 09:15 AM 03:30 PM 02:21 PM Order Date 03/06/2024 02/28/2023 01/19/2022 SG 1.000 (Ref Range: 1.005 - 1.025) 1.020 (Ref Range: 1.005 - 1.025) 1.015 pH 5.0 (Ref Range: 5.0 - 9.0) 7.5 (Ref Range: 5.0 - 9.0) 7.0 KAMRAN neg (Ref Range: Negative -) neg (Ref Range: Negative -) Negative NIT neg (Ref Range: Negative -) neg (Ref Range: Negative -) Negative PRO trace (Ref Range: Negative - Trace) trace (Ref Range: Negative - Trace) 0.15 GLU neg (Ref Range: Negative -) neg (Ref Range: Negative -) Negative KET neg (Ref Range: Negative -) neg (Ref Range: Negative -) Negative UBG 0.2 (Ref Range: 0.1 - 1.8) 0.2 (Ref Range: 0.1 - 1.8) 0.2 BHAVIN neg (Ref Range: 0.2 - 1.3) neg (Ref Range: 0.2 - 1.3) Negative BLD 5-10 (Ref Range: Negative -) trace (Ref Range: Negative -) Negative Menstrating N/A NR NR ???Lab:GUAIAC, SINGLE SPECIMEN (Order Date - 03/06/2024) (Collection Date & Time - 03/06/2024)?Result: negative?ValueReference Range?GUAIAC negative ???Lab:Arterial Blood Gases - POC (Order Date - 02/14/2024) (Collection Date & Time - 02/14/2024 04:02 PM)?ValueReference Range?ABG pH7.417.35- 7.45 -?ABG [id number] - mmHg?ABG [id number] - mmHg?ABG Base Excess7.9- mmol/L?ABG [id number] - mmol/L?ABG O2 % Uophbbflgv26.0- % * Lab:B Type Natriuretic Pepti de * Collection Date 02/13/2024 12/09/2023 04/08/2023 Collection Time 02:32 AM 09:35 AM 11:15 PM Order Date 02/13/2024 12/09/2023 04/08/2023 B Type Natriuretic Peptide < 10 (Ref Range: <100 pg/mL) < 10 (Ref Range: <100 pg/mL) < 10 (Ref Range: <100 pg/mL) * Lab:Liver Panel * Collection Date 02/13/2024 12/09/2023 Collection Time 02:33 AM 09:35 AM Order Date 02/13/2024 12/09/2023 Bilirubin Total 0.2 (Ref Range: 0.0-1.0 mg/dL) 0.2 (Ref Range: 0.0-1.0 mg/dL) Bilirubin Direct < 0.2 (Ref Range: 0.0-0.5 mg/dL) < 0.2 (Ref Range: 0.0-0.5 mg/dL) Aspartate Amino Transferase 18 (Ref Range: 5-37 U/L) 20 (Ref Range: 5-37 U/L) Alanine Aminotransferase 30 (Ref Range: 0-40 U/L) 27 (Ref Range: 0-40 U/L) Total Protein 7.5 (Ref Range: 6.5-8.0 g/dL) 8.2?H (Ref Range: 6.5-8.0 g/dL) Albumin Level 3.5 (Ref Range: 3.5-5.0 g/dL) 3.3?L (Ref Range: 3.5-5.0 g/dL) Alkaline Phosphatase 125?H (Ref Range: 39-117 U/L) 107 (Ref Range: 39-117 U/L) * Lab:SARS-CoV2/FLU/RSV * Collection Date 02/13/2024 12/09/2023 Collection Time 02:33 AM 09:42 AM Order Date 02/13/2024 12/09/2023 Influenza A PCR NEGATIVE (Ref Range: Negative) NEGATIVE (Ref Range: Negative) Influenza B PCR NEGATIVE (Ref Range: Negative) NEGATIVE (Ref Range: Negative) Resp Syncy Virus RNA Qual PCR NEGATIVE (Ref Range: Negative) NEGATIVE (Ref Range: Negative) SARS COV2 PCR INHOUSE NEGATIVE (Ref Range: Negative) NEGATIVE (Ref Range: Negative) * Lab:Basic Metabolic Panel * Collection Date 02/13/2024 02/13/2024 12/09/2023 Collection Time 04:40 AM 02:33 AM 09:35 AM Order Date 02/13/2024 02/13/2024 12/09/2023 Sodium 137 (Ref Range: 135-145 mmol/L) 139 (Ref Range: 135-145 mmol/L) 141 (Ref Range: 135-145 mmol/L) Blood Urea Nitrogen 10 (Ref Range: 9-16 mg/dL) 9 (Ref Range: 9-16 mg/dL) 10 (Ref Range: 9-16 mg/dL) Creatinine 0.87 (Ref Range: 0.5-1.4 mg/dL) 0.88 (Ref Range: 0.5-1.4 mg/dL) 0.94 (Ref Range: 0.5-1.4 mg/dL) Glucose Random 172?H (Ref Range: 60-115 mg/dL) 116?H (Ref Range: 60-115 mg/dL) 155?H (Ref Range: 60-115 mg/dL) Calcium 9.2 (Ref Range: 8.4-10.2 mg/dL) 9.5 (Ref Range: 8.4-10.2 mg/dL) 8.9 (Ref Range: 8.4-10.2 mg/dL) Potassium 4.2 (Ref Range: 3.3-5.1 mmol/L) 4.1 (Ref Range: 3.3-5.1 mmol/L) 3.8 (Ref Range: 3.3-5.1 mmol/L) Chloride 100 (Ref Range: 96-108 mmol/L) 101 (Ref Range: 96-108 mmol/L) 100 (Ref Range: 96-108 mmol/L) Carbon Dioxide 28 (Ref Range: 22-29 mmol/L) 27 (Ref Range: 22-29 mmol/L) 33?H (Ref Range: 22-29 mmol/L) Anion Gap 13 (Ref Range: 12-20) 15 (Ref Range: 12-20) 12 (Ref Range: 12-20) Estimated Glomerular Filt Rate > 60 > 60 > 60 Creatinine Clr Calc Pharmacy 129.0 127.6 117.5 * Lab:Complete Blood Count Aut o Diff * Collection Date 02/13/2024 02/13/2024 12/09/2023 Collection Time 04:40 AM 02:32 AM 09:35 AM Order Date 02/13/2024 02/13/2024 12/09/2023 White Blood Count 10.2 (Ref Range: 4.8-10.8 X10*3/uL) 9.0 (Ref Range: 4.8-10.8 X10*3/uL) 7.0 (Ref Range: 4.8-10.8 X10*3/uL) Red Blood Count 4.98 (Ref Range: 4.60-5.80 X10*6/uL) 5.13 (Ref Range: 4.60-5.80 X10*6/uL) 5.25 (Ref Range: 4.60-5.80 X10*6/uL) Hemoglobin 14.7 (Ref Range: 14.0-18.0 g/dl) 15.3 (Ref Range: 14.0-18.0 g/dl) 15.7 (Ref Range: 14.0-18.0 g/dl) Hematocrit 45.7 (Ref Range: 42.0-52.0 %) 47.3 (Ref Range: 42.0-52.0 %) 49.2 (Ref Range: 42.0-52.0 %) Mean Corpuscular Volume 91.8 (Ref Range: 80.0-98.0 fL) 92.2 (Ref Range: 80.0-98.0 fL) 93.7 (Ref Range: 80.0-98.0 fL) Mean Corpuscular Hemoglobin 29.5 (Ref Range: 27.0-33.0 pg) 29.8 (Ref Range: 27.0-33.0 pg) 29.9 (Ref Range: 27.0-33.0 pg) Mean Corpuscular HGB Conc 32.2 (Ref Range: 31.0-36.0 g/dl) 32.3 (Ref Range: 31.0-36.0 g/dl) 31.9 (Ref Range: 31.0-36.0 g/dl) Red Cell Distribution Width 15.8 (Ref Range: 11.0-16.0 %) 15.7 (Ref Range: 11.0-16.0 %) 16.4?H (Ref Range: 11.0-16.0 %) Platelet Count 247 (Ref Range: 160-400 X10*3/uL) 273 (Ref Range: 160-400 X10*3/uL) 306 (Ref Range: 160-400 X10*3/uL) Mean Platelet Volume 9.6 (Ref Range: 9.4-12.4 fL) 9.8 (Ref Range: 9.4-12.4 fL) 9.4 (Ref Range: 9.4-12.4 fL) Neutrophils Percent Auto 82.1?H (Ref Range: 45-73 %) 61.6 (Ref Range: 45-73 %) 60.9 (Ref Range: 45-73 %) Imm Gran Pct Auto 0.6?H (Ref Range: 0.0-0.4 %) 0.3 (Ref Range: 0.0-0.4 %) 0.1 (Ref Range: 0.0-0.4 %) Lymphocytes Percent Auto 12.0?L (Ref Range: 20-40 %) 26.9 (Ref Range: 20-40 %) 26.9 (Ref Range: 20-40 %) Monocytes Percent Auto 3.3 (Ref Range: 2-11 %) 6.8 (Ref Range: 2-11 %) 6.6 (Ref Range: 2-11 %) Eosinophils Percent Auto 1.7 (Ref Range: 0-4 %) 4.0 (Ref Range: 0-4 %) 4.9?H (Ref Range: 0-4 %) Basophils Percent Auto 0.3 (Ref Range: 0-2 %) 0.4 (Ref Range: 0-2 %) 0.6 (Ref Range: 0-2 %) NRBC Pct Auto 0.0 (Ref Range: 0.0-0.2 /100WBC) 0.0 (Ref Range: 0.0-0.2 /100WBC) 0.0 (Ref Range: 0.0-0.2 /100WBC) Neutrophils Absolute Auto 8.3 (Ref Range: 2.0-8.3 x10*3/uL) 5.6 (Ref Range: 2.0-8.3 x10*3/uL) 4.3 (Ref Range: 2.0-8.3 x10*3/uL) Imm Gran Abs Auto 0.06?H (Ref Range: 0.00-0.03 X10*3/uL) 0.03 (Ref Range: 0.00-0.03 X10*3/uL) 0.01 (Ref Range: 0.00-0.03 X10*3/uL) Lymphocytes Absolute Auto 1.2 (Ref Range: 1.2-4.9 X10*3/uL) 2.4 (Ref Range: 1.2-4.9 X10*3/uL) 1.9 (Ref Range: 1.2-4.9 X10*3/uL) Monocytes Absolute Auto 0.3 (Ref Range: 0.1-1.2 X10*3/uL) 0.6 (Ref Range: 0.1-1.2 X10*3/uL) 0.5 (Ref Range: 0.1-1.2 X10*3/uL) Eosinophils Absolute Auto 0.2 (Ref Range: 0.0-0.4 X10*3/uL) 0.4 (Ref Range: 0.0-0.4 X10*3/uL) 0.3 (Ref Range: 0.0-0.4 X10*3/uL) Basophils Absolute Auto 0.0 (Ref Range: 0.0-0.2 X10*3/uL) 0.0 (Ref Range: 0.0-0.2 X10*3/uL) 0.0 (Ref Range: 0.0-0.2 X10*3/uL) NRBC Abs Auto 0.000 (Ref Range: 0.0-0.012 X10*3/uL) 0.000 (Ref Range: 0.0-0.012 X10*3/uL) 0.000 (Ref Range: 0.0-0.012 X10*3/uL) * Lab:Blood Culture (First) * Collection Date 02/13/2024 12/09/2023 Collection Time 02:33 AM 09:35 AM Order Date 02/13/2024 12/09/2023 Blood Culture (First) No growth after 5 days. No growth after 5 days. * Lab:Lactic Acid * Collection Date 02/13/2024 12/09/2023 Collection Time 02:33 AM 09:35 AM Order Date 02/13/2024 12/09/2023 Lactic Acid 1.2 (Ref Range: 0.5-2.0 mmol/L) 2.2?HH (Ref Range: 0.5-2.0 mmol/L) * Lab:Blood Culture (Second) * Collection Date 02/13/2024 12/09/2023 Collection Time 02:35 AM 09:36 AM Order Date 02/13/2024 12/09/2023 Blood Culture (Second) No growth after 5 days. No growth after 5 days. * Lab:Magnesium * Collection Date 02/13/2024 12/09/2023 Collection Time 02:33 AM 09:35 AM Order Date 02/13/2024 12/09/2023 Magnesium 2.1 (Ref Range: 1.6-2.6 mg/dL) 1.9 (Ref Range: 1.6-2.6 mg/dL) * Lab:Venous Blood Gases - POC * Collection Date 02/13/2024 12/09/2023 04/09/2023 Collection Time 02:36 AM 09:42 AM 02:46 AM Order Date 02/13/2024 12/09/2023 04/09/2023 VBG pH 7.38 (Ref Range: 7.32-7.43) 7.35 (Ref Range: 7.32-7.43) 7.38 (Ref Range: 7.32-7.43) VBG pCO2 57 (Ref Range: mmHg) 64 (Ref Range: mmHg) 51 (Ref Range: mmHg) VBG pO2 85 (Ref Range: mmHg) 59 (Ref Range: mmHg) 78 (Ref Range: mmHg) VBG Base Excess 7.2 (Ref Range: mmol/L) 7.6 (Ref Range: mmol/L) 4.0 (Ref Range: mmol/L) VBG HCO3 34?H (Ref Range: 22-26 mmol/L) 36?H (Ref Range: 22-26 mmol/L) 30?H (Ref Range: 22-26 mmol/L) VBG O2 % Saturation 98.0 (Ref Range: %) 86.0 (Ref Range: %) 95.0 (Ref Range: %) * Lab:Troponin-I High Sensitiv ity * Collection Date 02/13/2024 12/09/2023 04/08/2023 Collection Time 02:32 AM 09:35 AM 11:15 PM Order Date 02/13/2024 12/09/2023 04/08/2023 Troponin-I High Sensitivity 4.5 (Ref Range: <3.5-35.0 ng/L) 3.4 (Ref Range: <3.5-35.0 ng/L) < 2.7 (Ref Range: <3.5-35.0 ng/L) * Imaging:XR chest 1V * Performed Date 02/13/2024 12/09/2023 02:47 AM 09:55 AM Order Date 02/13/2024 12/09/2023 ???Imaging:CT angio chest PE protocol (Order Date - 02/13/2024) (Performed Date - 02/13/2024) * Examination: ???General Examination: ?GENERAL APPEARANCE:?pleasant, well nourished, well developed, in no acute distress, calm and relaxed, obese, man, morbidly obese, man.?HEAD:?atraumatic, normocephalic.?EYES:?eomi, perrla, anicteric, conjugate.?EARS:?normal.?NOSE:?septum intact.?ORAL CAVITY:?normal, unremarkable.?NECK/THYROID:?no jugular venous distention, no carotid bruit, thyroid normal.?LYMPH NODES:?no enlarged lymph nodes,spleen normal.?SKIN:?no suspicious lesions, anicteric.?HEART:?no clicks, gallops, murmurs, or rubs, regular rhythm, S1, S2 normal, no s3, or vascular bruits.?LUNGS:?, diminished breath sounds throughout, rhonchi on the LEFT, rhonchi on the RIGHT.?BREASTS:??no masses palpable bilaterally.?ABDOMEN:?bowel sounds normal, no ascites, no organomegaly, no mass, morbid obesity.?RECTAL EXAM:?not examined.?MUSCULOSKELETAL:?extremities unremarkable, no clubbing, cyanosis or edema.?PERIPHERAL PULSES:?normal.?NEUROLOGIC:?alert and oriented, cranial nerves 2-12 grossly intact, deep tendon reflexes 2+ symmetrical, motor strength normal upper and lower extremities, sensory exam intact.?PSYCH:?alert, oriented.? : ???Lung Exam - No wheezing. ??? Assessment: * Assessment: 1.?Pulmonary emphysema, unsp ecified emphysema type - J43.9 (Primary)???Notes :He is wearing oxygen at home now. His french cord binder is Dr. Choudhury. He will be seen monthly. Was recently hospitalized for several days with impending respiratory failure.? He has been compliant with his medications.? A long-term plan will be regular exercise aggressive weight reduction healthy diet to continue to refrain from smoking.? He was referred back to pulmonary.???2.?Essential hypertension - I10???Notes :His blood pressure is controlled. He will benefit from additional reduction his pressure. He will return to the office in the near future to check this again.He will be treated. If necessary.???3.?Sleep apnea - G47.30???Notes :He will remain under the care of the current pulmonary physician.???4.?Former smoker - Z87.891???Notes :We made a plan to resist the labs in times of stress and illness. He says he is committed to not smoking.???5.?Morbid obesity - E66.01???Notes :He has lost 2 pounds. We reviewed his diet and nutrition. He was begun on Wegovy injections???6.?BPH (benign prostatic hypertrophy) - N40.0???Notes :He rises from sleep once or twice a night to urinate. We have discussed lifestyle modification as well as to reduce nocturnal urinating.??? Plan: * Treatment: 2.?Others? Continue Albuterol Sulfate HFA Aerosol Solution, 108 (90 Base) MCG/ACT, TAKE 2 PUFFS BY MOUTH NEEDED EVERY 4 HOURS X30 DAYS;?Continue hydroCHLOROthiazide Tablet, 25 MG, TAKE 1 TABLET BY MOUTH EVERY DAY;?Continue [employer] Purelax Powder, 17 GM/SCOOP, (Prior Auth#:[id number]), Oral;?Continue Tadalafil Tablet, 20 MG, 1 tablet, Orally, Once a day;?Continue Metoprolol Succinate ER Tablet Extended Release 24 Hour, 50 MG, 1 tablet, Orally, Once a day;?Continue Nicotine Patch 24 Hour, 21 MG/24HR, 1 patch to skin, Transdermal, Once a day;?Continue predniSONE Tablet, 20 MG, 1 tablet with food or milk, Orally, Once a day.?? * Procedure Codes:? * Preventive Medicine:? ??Counseling:?Care goal follow-up plan:?Counseling for abnormal BMI given?Yes ?Above Normal BMI Follow-up?Dietary management education, guidance, and counseling, Dietary needs education, Exercise promotion: strength training, Exercise promotion: stretching, Feeding regime, Giving encouragement to exercise, Lifestyle education regarding diet, Nutrition / feeding management, Nutrition therapy, Prescribed activity/exercise education, Prescribed diet education, Prescribed dietary intake, Special diet education, Weight monitoring , Intervention, Order not done: Medical or Other reason not done ?Smoking/Tobacco Use?Patient counseled on the dangers of tobacco use and urged to quit.?05/01/2024 * Follow Up:?4 Weeks (Reason: ov) * Images: * Sign off status: Completed true * Provider:?Leonard Boston MD Date:?02/2024 Generated for Printi ng/Vanessa/eTransmitting on:?08/07/2024 06:09 PM EST History and Physical Notes * HPI (History of Present Illness) Category Sub-Category Detail Notes COVID-19 Screening Questions Have you had any new onset fever, chills, cough, congestion, sore throat, shortness of breath, muscle aches?: No Have you been exposed to the virus withi n the last 10 days?: No Have you travelled internationally in e last 10 days?: No Have you been exposed to COVID-19 in the past?: Yes Examination Category Sub-Category Detail Notes General Examination GENERAL APPEARANCE: pleasant , well nourished, well developed, in no acute distress, calm and relaxed, obese, man, morbidly obese, man HEAD: atraumatic, normocep halic EYES: eomi, perrla, anicte katina, conjugate EARS: normal NOSE: septum intact NECK/THYROID: no jugular venous di stention, no carotid bruit, thyroid normal HEART: no clicks, gallops, murmurs, or rubs, regular rhythm, S1, S2 normal, no s3, or vascular bruits LUNGS: , diminished breath sounds throughout, rhonchi on the LEFT, rhonchi on the RIGHT ABDOMEN: bowel sounds normal, no ascites, no organomegaly, no mass, morbid obesity NEUROLOGIC: alert and oriented, cranial nerves 2-12 [...]
--- OUTSIDE RECORDS SUMMARY | 2024-08-07 18:10 | XMS_ITS | Patient Health Record ---
Author Organization Leonard Boston III, MD Address [address] [place] [address] [place] [address] Care Team Providers Care Bakelite Molder Name Role Phone Leonard Boston Primary Care Provider [phone] Allergies Allergen (clinical drug ingredient) Drug/Non Drug Allergy documented on EMR Reaction Allergy Type Onset Date Status No Known Drug Allergy Unknown Drug Allergy Active Results Component Value Reference Range Notes GUAIAC, SINGLE SPECIMEN Reviewed date:03/11/2024 07:08:46 AM Interpretation:negative Performing Lab: Notes/Report: negative GUAIAC negative URINE DIP STICK Reviewed date:03/11/2024 07:08:46 AM Interpretation: Performing Lab: Notes/Report: SG 1.000 1.005 - 1.025 pH 5.0 5.0 - 9.0 KAMRAN neg Negative - NIT neg Negative - PRO trace Negative - Trace GLU neg Negative - KET neg Negative - UBG 0.2 0.1 - 1.8 BHAVIN neg 0.2 - 1.3 BLD 5-10 Negative - Menstrating N/A Complete Blood Count Auto Di ff Reviewed date:10/05/2023 09:59:49 AM Interpretation: Performing Lab:[facility], [address] [place] [phone] Notes/Report: White Blood Count 12.4 4.8-10.8 X10*3/uL Red Blood Count 4.80 4.60-5.80 X10*6/uL Hemoglobin 14.5 14.0-18.0 g/dl Hematocrit 45.1 42.0-52.0 % Mean Corpuscular Volume 94.0 80.0-98.0 fL Mean Corpuscular Hemoglobin 30.2 27.0-33.0 pg Mean Corpuscular HGB Conc 32.2 31.0-36.0 g/dl Red Cell Distribution Width 16.3 11.0-16.0 % Platelet Count 315 160-400 X10*3/uL Mean Platelet Volume 9.5 9.4-12.4 fL Neutrophils Percent Auto 66.7 45-73 % Imm Gran Pct Auto 0.5 0.0-0.4 % Lymphocytes Percent Auto 25.1 20-40 % Monocytes Percent Auto 6.3 2-11 % Eosinophils Percent Auto 1.1 0-4 % Basophils Percent Auto 0.3 0-2 % NRBC Pct Auto 0.0 0.0-0.2 /100WBC Neutrophils Absolute Auto 8.2 2.0-8.3 x10*3/u L Imm Gran Abs Auto 0.06 0.00-0.03 X10*3/uL Lymphocytes Absolute Auto 3.1 1.2-4.9 X10*3/u L Monocytes Absolute Auto 0.8 0.1-1.2 X10*3/uL Eosinophils Absolute Auto 0.1 0.0-0.4 X10*3/u L Basophils Absolute Auto 0.0 0.0-0.2 X10*3/uL NRBC Abs Auto 0.000 0.0-0.012 X10*3/uL Comprehensive Met. Panel Reviewed date:10/05/2023 09:59:49 AM Interpretation: Performing Lab:[facility], [address] [place] [phone] Notes/Report: Sodium 141 135-145 mmol/L Potassium 5.0 3.3-5.1 mmol/L Chloride 104 96-108 mmol/L Carbon Dioxide 34 22-29 mmol/L Anion Gap 8 12-20 Blood Urea Nitrogen 11 9-16 mg/dL Creatinine 0.88 0.5-1.4 mg/dL Creatinine Clr Calc Pharmacy 129.6 eGFR (calculated from the MDRD study equation) and eCrCl (calculated from the Cockcroft-Gault equation) are based on different parameters and may not yield comparable results. If eCrCl result is absurd, please check patient's height/weight. Estimated Glomerular Filt Rate > 60 NOTE: For -[place] individuals, multiply the result by 1.210. Chronic Kidney Disease: Estimated GFR < 60 mL/min/1.73m2 Severe Kidney Disease: Estimated GFR < 15 mL/min/1.73m2 Glucose Random 87 60-115 mg/dL Calcium 9.3 8.4-10.2 mg/dL Bilirubin Total 0.2 0.0-1.0 mg/dL Aspartate Amino Transferase 17 5-37 U/L Alanine Aminotransferase 26 0-40 U/L Total Protein 8.0 6.5-8.0 g/dL Albumin Level 3.3 3.5-5.0 g/dL Alkaline Phosphatase 107 39-117 U/L UA CC w/rflx Micro + Cult Reviewed date:10/05/2023 09:59:49 AM Interpretation: Performing Lab:[facility], [address] [place] [phone] Notes/Report: [id number] Urine, Clean Catch Color Urine Yellow Appearance Urine Clear PH 5.5 5.0-9.0 Glucose Urine UA Negative Negative mg/dL Urine Blood Negative Negative Specific [place] - Urine 1.025 1.005-1.025 Urine Protein Negative Neg-Trace mg/dL Urine Ketones Negative Negative mg/dL Nitrite Urine Negative Negative Leukocyte Esterase Urine Negative Negative XR ribs LT min 3V w CXR1V Reviewed date:10/05/2023 09:59:49 AM Interpretation: Performing Lab: Notes/Report: [address] [address] XRay Report Signed Patient: Phil Bernardo MR#: [id number] 75 : 1965 Acct:[id number] Age/Sex: 58 / M ADM Date: 10/04/23 Loc: HO.ED Attending Dr: Ordering Physician: Shahida Spencer Date of Service: 10/04/23 Procedure(s): XR ribs LT min 3V w CXR1V Accession Number(s): [id number] cc: Leonard Boston MD; Shahida Spencer EXAMINATION: XR RIBS, LEFT CLINICAL INFORMATION: Pain COMPARISON: CXR from 02/17/[address] from 05/18/2023. TECHNIQUE: 3 views of the left ribs, as well as PA view of chest. FINDINGS: Lungs are similar in appearance compared to 05/18/2023. The hazy opacities along cardiac borders correspond to atelectasis along the prominent paracardiac fat pads, as seen on 05/18/2023. No evidence of interstitial lung disease. No pleural effusion or pneumothorax. Pulmonary vascular pattern is normal. Old healed fracture of left lateral ninth rib. No evidence of acute rib fracture. No suspicious osseous lesion. XR/XR ribs LT min 3V w CXR1V IMPRESSION: * No acute pulmonary disease compared to 05/18/2023. * There is atelectasis of the lingula and right middle lobe adjacent to the prominent paracardiac fat pads. * Old healed fracture of left lateral ninth rib. Dictated By: Chadd Brown MD Signed By: <Electronically signed by Chadd Brown MD in OV> 10/04/23 1006 DD/ 0905 TD/TT: Lugger: [place] [address] XRay Report Signed Patient: Mary Bernardo MR#: [id number] 75 : 1965 Acct:[id number] Age/Sex: 58 / M ADM Date: 10/04/23 Loc: HO.ED Attending Dr: Ordering Physician: Shahida Spencer Date of Service: 10/04/23 Procedure(s): XR rib s LT min 3V w CXR1V Accession Number(s): [id number] cc: Leonard Boston MD; Shahida Spencer EXAMINATION: XR RIBS, LEFT CLINICAL INFORMATION: Pain COMPARISON: CXR from 02/17/[address] from 05/18/2023. TECHNIQUE: 3 views of the left ribs, as well as PA view of chest. FINDINGS: Lungs are similar in appearance compared to 05/18/2023. The hazy opacities along card iac borders correspond to atelectasis along the prominent paracardia c fat pads, as seen on 05/18/2023. No evidence of interstitial lung disease. No pleural effusion or pneumothorax. Pulmon gee vascular pattern is normal. Old healed fracture of left lateral ninth rib. No evidence of acute rib fracture. No suspici ous osseous lesion. X R/XR ribs LT min 3V w CXR1V IMPRESSION: * No acute pulmonary disease compared to 05/18/2023. * There is atelectas is of the lingula and right middle lobe adjacent to the prominent paracardiac fat pads. * Old healed fractur e of left lateral ninth rib. Dictated By: Chadd Brown MD Signed By: <Electronically signed by Chadd Brown MD in OV> 10/04/23 1006 DD/ 0905 TD/TT: [place] Worker ist: PD Strep A Nucleic Acid Reviewed date:11/11/2023 03:14:38 PM Interpretation: Performing Lab:[facility], [address] [place] [phone] Notes/Report: IDNOW Serial# [id number] Strep A Nucleic Acid Negative Negative All test results must be correlated with clinical findings. This test has not been evaluated for monitoring treatment of infection. Additional follow-up testing using the culture method is required if the result is negative and clinical symptoms persist, or in the event of an acute rheumatic fever outbreak. Complete Blood Count Auto Di ff Reviewed date:12/09/2023 08:56:15 PM Interpretation: Performing Lab:[facility], [address] [place] [phone] Notes/Report: White Blood Count 7.0 4.8-10.8 X10*3/uL Red Blood Count 5.25 4.60-5.80 X10*6/uL Hemoglobin 15.7 14.0-18.0 g/dl Hematocrit 49.2 42.0-52.0 % Mean Corpuscular Volume 93.7 80.0-98.0 fL Mean Corpuscular Hemoglobin 29.9 27.0-33.0 pg Mean Corpuscular HGB Conc 31.9 31.0-36.0 g/dl Red Cell Distribution Width 16.4 11.0-16.0 % Platelet Count 306 160-400 X10*3/uL Mean Platelet Volume 9.4 9.4-12.4 fL Neutrophils Percent Auto 60.9 45-73 % Imm Gran Pct Auto 0.1 0.0-0.4 % Lymphocytes Percent Auto 26.9 20-40 % Monocytes Percent Auto 6.6 2-11 % Eosinophils Percent Auto 4.9 0-4 % Basophils Percent Auto 0.6 0-2 % NRBC Pct Auto 0.0 0.0-0.2 /100WBC Neutrophils Absolute Auto 4.3 2.0-8.3 x10*3/u L Imm Gran Abs Auto 0.01 0.00-0.03 X10*3/uL Lymphocytes Absolute Auto 1.9 1.2-4.9 X10*3/u L Monocytes Absolute Auto 0.5 0.1-1.2 X10*3/uL Eosinophils Absolute Auto 0.3 0.0-0.4 X10*3/u L Basophils Absolute Auto 0.0 0.0-0.2 X10*3/uL NRBC Abs Auto 0.000 0.0-0.012 X10*3/uL Liver Panel Reviewed date:12/09/2023 08:56:15 PM Interpretation: Performing Lab:[address] [phone] Notes/Report: Bilirubin Total 0.2 0.0-1.0 mg/dL Bilirubin Direct < 0.2 0.0-0.5 mg/dL Aspartate Amino Transferase 20 5-37 U/L Alanine Aminotransferase 27 0-40 U/L Total Protein 8.2 6.5-8.0 g/dL Albumin Level 3.3 3.5-5.0 g/dL Alkaline Phosphatase 107 39-117 U/L Basic Metabolic Panel Reviewed date:12/09/2023 08:56:15 PM Interpretation: Performing Lab:[facility], [address] [place] [phone] Notes/Report: Sodium 141 135-145 mmol/L Potassium 3.8 3.3-5.1 mmol/L Chloride 100 96-108 mmol/L Carbon Dioxide 33 22-29 mmol/L Anion Gap 12 12-20 Blood Urea Nitrogen 10 9-16 mg/dL Creatinine 0.94 0.5-1.4 mg/dL Creatinine Clr Calc Pharmacy 117.5 eGFR (calculated from the MDRD study equation) and eCrCl (calculated from the Cockcroft-Gault equation) are based on different parameters and may not yield comparable results. If eCrCl result is absurd, please check patient's height/weight. Estimated Glomerular Filt Rate > 60 NOTE: For -Ken[place] individuals, multiply the result by 1.210. Chronic Kidney Disease: Estimated GFR < 60 mL/min/1.73m2 Severe Kidney Disease: Estimated GFR < 15 mL/min/1.73m2 Glucose Random 155 60-115 mg/dL Calcium 8.9 8.4-10.2 mg/dL Lactic Acid Reviewed date:12/09/2023 08:56:15 PM Interpretation: Performing Lab:[facility], [address] [place] [phone] Notes/Report: Lactic Acid 2.2 0.5-2.0 mmol/L Critical value for test(s): lactic Results called to and read back by:keturah Person calling:maxnje Date: 12/09/23 Time:1004 Magnesium Reviewed date:12/09/2023 08:56:15 PM Interpretation: Performing Lab:[facility], [address] [place] [phone] Notes/Report: Magnesium 1.9 1.6-2.6 mg/dL Troponin-I High Sensitivity Reviewed date:12/09/2023 08:56:15 PM Interpretation: Performing Lab:[facility], [address] [place] [phone] Notes/Report: Troponin-I High Sensitivity 3.4 <3.5-35.0 ng/L The [place] high sensitivity Troponin-I results should be used in conjunction with other diagnostic information such as ECG, clinical observations and information, and patient symptoms to aid in the diagnosis of NC. B Type Natriuretic Peptide Reviewed date:12/09/2023 08:56:15 PM Interpretation: Performing Lab:[facility], [address] [place] [phone] Notes/Report: B Type Natriuretic Peptide < 10 <100 pg/mL For those patients who are being treated with Natrecor (nesiritide, recombinant BNP), BNP testing should be performed at least two hours post treatment in order to ensure that only endogenous levels of BNP are detected. Procalcitonin Reviewed date:12/09/2023 08:56:15 PM Interpretation: Performing Lab:[facility], [address] [place] [phone] Notes/Report: Procalcitonin 0.05 Procalcitonin (PCT) Reference Range: PCT greater than 2.0 ng/mL: A PCT level above 2.0 ng/mL on the first day of ICU admission is associated with a high risk for progression to severe sepsis and/or septic shock. PCT less than 0.5 ng/mL: A PCT level below 0.5 ng/mL on the first day of ICU admission is associated with a low risk for progression to severe sepsis and/or septic shock. PCT levels below 0.5 ng/mL do not exclude an infection. Care must be taken in interpreting PCT results from different laboratories and methodologies. References: [place] [employer]/Society of Critical Care Medicine Consensus Conference Committee. Definitions for sepsis and organ failure and guidelines for the use of innovative therapies in sepsis. Crit Care Med 1992;20(6):864-874. Ghassan B, Arielle KL, Corona H, et al. Calcitonin precursors are reliable markers of sepsis in a medical intensive care unit. Crit Care Med 2000;363:600-607. Adria S, Yury K, Adelaida C, et al. Diagnostic value of procalcitonin, interleukin-6 and interleukin-8 in critically ill patients admitted with suspected sepsis. AM J Respir Crit Care Med 2001;164:396-402. US Food and Drug Administration. 510(k) substantial equivalence determination decision summary for [facility]. http://www.accessdat a.fda.fov/cdrh_docs/ reviews/Z363427.pdf. Published July 2004. Accessed December 2016. SARS-CoV2/FLU/RSV Reviewed date:12/09/2023 08:56:15 PM Interpretation: Performing Lab:[facility], [address] [place] [phone] Notes/Report: Influenza A PCR NEGATIVE Negative Influenza B PCR NEGATIVE Negative Resp Syncy Virus RNA Qual PCR NEGATIVE Negative SARS COV2 PCR INHOUSE NEGATIVE Negative All test results must be correlated with clinical findings. Negative results do not preclude SARS-CoV2, influenza A virus, influenza B virus and/or RSV infection and should not be used as the sole basis for treatment or other patient management decisions. Negative results must be combined with clinical observations, patient history, and epidemiological information. This test has not been evaluated for monitoring treatment of infection. This test has been authorized by the FDA under an Emergency Use Authorization (EUA) for use by authorized laboratories. Testing performed on the [employer] GeneXpert utilizing real-time RT-PCR. All SARS CoV2 and positive influenza A/B results are reported to [facility]. Blood Culture (First) Reviewed date:12/17/2023 04:47:45 AM Interpretation: Performing Lab:[address] [phone] Notes/Report: Blood Culture (First) No growth after 5 days. Blood Culture (Second) Reviewed date:12/17/2023 04:47:45 AM Interpretation: Performing Lab:[address] [address] Notes/Report: Blood Culture (Second) No growth after 5 days. Lactic Acid-LAB USE ONLY Reviewed date:12/09/2023 08:56:15 PM Interpretation: Performing Lab:[address] [address] Notes/Report: Lactic Acid-LAB USE ONLY 2.9 0.5-2.0 mmol/L Critical value for test(s): LACTA Results called to and read back by: JORGE Person calling: DALE Date:12/09/2023 Time:12:35 Venous Blood Gases - POC Reviewed date:12/09/2023 08:56:16 PM Interpretation: Performing Lab:[address] [address] Notes/Report: VBG pH 7.35 7.32-7.43 METER #: [id number] additional_comment: Cb caspei VBG pCO2 64 METER #: [id number] additional_comment: Cb caspei VBG pO2 59 METER #: [id number] additional_comment: Cb caspei VBG Base Excess 7.6 METER #: [id number] additional_comment: Cb caspei VBG HCO3 36 22-26 mmol/L METER #: [id number] additional_comment: Cb caspei VBG O2 % Saturation 86.0 METER #: [id number] additional_comment: ljei Cancel Lactic Acid Reviewed date:12/09/2023 08:56:16 PM Interpretation: Performing Lab:[facility], [address] [place] [address] Notes/Report: Cancel Lactic Acid Canceled XR chest 1V Reviewed date:12/09/2023 08:56:16 PM Interpretation: Performing Lab: Notes/Report: [facility] [address] [place] [address] XRay Report Signed Patient: Phil Bernardo MR#: [id number] 77 : 1965 Acct:[id number] Age/Sex: 58 / M ADM Date: 12/09/23 Loc: .ED Attending Dr: Ordering Physician: Roxann Robins DO Date of Service: 12/09/23 Procedure(s): XR chest 1V Accession Number(s): [id number] cc: Leonard Boston MD; Roxann Robins DO EXAMINATION: XR CHEST CLINICAL INFORMATION: Dyspnea COMPARISON: 10/04/2023 TECHNIQUE: Frontal view of the chest was obtained. FINDINGS: Lungs are well expanded. Linear opacity of discoid atelectasis of the lingula. The hazy opacities at the medial bases correspond to the prominent paracardiac fat pads. Cardiac silhouette is normal in size. Pulmonary vascular pattern is normal. No acute osseous abnormality. XR/XR chest 1V IMPRESSION: No acute pulmonary disease compared to 10/04/2023. Dictated By: Chadd Brown MD Signed By: <Electronically signed by Chadd Brown MD in OV> 12/09/23 1121 DD/ 0955 TD/TT: Lugger: [address] [address] XRay Report Signed Patient: Mary Bernardo MR#: [id number] 77 : 1965 Acct:[id number] Age/Sex: 58 / M ADM Date: 12/09/23 Loc: .ED Attending Dr: Ordering Physician: Roxann Robins DO Date of Service: 12/09/23 Procedure(s): XR yancy st 1V Accession Number(s): [id number] cc: Leonard Boston MD; Shimon,Roxann DO EXAMINATION: XR CHEST CLINICAL INFORMATION: Dyspnea COMPARISON: 10/04/2023 TECHNIQUE: Frontal view of the chest was obtained. FINDINGS: Lungs are well expan ded. Linear opacity of discoid atelectasis of the lingula. The hazy opacities at the medial bases correspond to the prominent paracardia c fat pads. Cardiac silhouette is normal in size. Pulmonary vascular pattern is normal. No acute osseous abnormality. X R/XR chest 1V IMPRESSION: No acute pulmonary disease compared to 10/04/2023. Dictated By: Chadd Brown MD Signed By: <Electronically signed by Chadd Brown MD in OV> 12/09/23 1121 DD/ 0955 TD/TT: [place] Worker ist: PD Complete Blood Count Auto Di ff Reviewed date:02/14/2024 06:45:28 AM Interpretation: Performing Lab:[facility], [address] [place] [phone] Notes/Report: White Blood Count 9.0 4.8-10.8 X10*3/uL Red Blood Count 5.13 4.60-5.80 X10*6/uL Hemoglobin 15.3 14.0-18.0 g/dl Hematocrit 47.3 42.0-52.0 % Mean Corpuscular Volume 92.2 80.0-98.0 fL Mean Corpuscular Hemoglobin 29.8 27.0-33.0 pg Mean Corpuscular HGB Conc 32.3 31.0-36.0 g/dl Red Cell Distribution Width 15.7 11.0-16.0 % Platelet Count 273 160-400 X10*3/uL Mean Platelet Volume 9.8 9.4-12.4 fL Neutrophils Percent Auto 61.6 45-73 % Imm Gran Pct Auto 0.3 0.0-0.4 % Lymphocytes Percent Auto 26.9 20-40 % Monocytes Percent Auto 6.8 2-11 % Eosinophils Percent Auto 4.0 0-4 % Basophils Percent Auto 0.4 0-2 % NRBC Pct Auto 0.0 0.0-0.2 /100WBC Neutrophils Absolute Auto 5.6 2.0-8.3 x10*3/u L Imm Gran Abs Auto 0.03 0.00-0.03 X10*3/uL Lymphocytes Absolute Auto 2.4 1.2-4.9 X10*3/u L Monocytes Absolute Auto 0.6 0.1-1.2 X10*3/uL Eosinophils Absolute Auto 0.4 0.0-0.4 X10*3/u L Basophils Absolute Auto 0.0 0.0-0.2 X10*3/uL NRBC Abs Auto 0.000 0.0-0.012 X10*3/uL Liver Panel Reviewed date:02/14/2024 06:45:28 AM Interpretation: Performing Lab:[facility], [address] [place] [phone] Notes/Report: Bilirubin Total 0.2 0.0-1.0 mg/dL Bilirubin Direct < 0.2 0.0-0.5 mg/dL Slight Hem olysis Aspartate Amino Transferase 18 5-37 U/L Slight Hemolysis Alanine Aminotransferase 30 0-40 U/L Total Protein 7.5 6.5-8.0 g/dL Albumin Level 3.5 3.5-5.0 g/dL Alkaline Phosphatase 125 39-117 U/L Basic Metabolic Panel Reviewed date:02/14/2024 06:45:28 AM Interpretation: Performing Lab:[facility], [address] [place] [phone] Notes/Report: Sodium 139 135-145 mmol/L Potassium 4.1 3.3-5.1 mmol/L Slight Hemoly sis Chloride 101 96-108 mmol/L Carbon Dioxide 27 22-29 mmol/L Anion Gap 15 12-20 Blood Urea Nitrogen 9 9-16 mg/dL Creatinine 0.88 0.5-1.4 mg/dL Creatinine Clr Calc Pharmacy 127.6 eGFR (calculated from the MDRD study equation) and eCrCl (calculated from the Cockcroft-Gault equation) are based on different parameters and may not yield comparable results. If eCrCl result is absurd, please check patient's height/weight. Estimated Glomerular Filt Rate > 60 NOTE: For -[place] individuals, multiply the result by 1.210. Chronic Kidney Disease: Estimated GFR < 60 mL/min/1.73m2 Severe Kidney Disease: Estimated GFR < 15 mL/min/1.73m2 Glucose Random 116 60-115 mg/dL Calcium 9.5 8.4-10.2 mg/dL Lactic Acid Reviewed date:02/14/2024 06:45:28 AM Interpretation: Performing Lab:[facility], [address] [place] [phone] Notes/Report: Lactic Acid 1.2 0.5-2.0 mmol/L Magnesium Reviewed date:02/14/2024 06:45:28 AM Interpretation: Performing Lab:[facility], [address] [place] [phone] Notes/Report: Magnesium 2.1 1.6-2.6 mg/dL Troponin-I High Sensitivity Reviewed date:02/14/2024 06:45:28 AM Interpretation: Performing Lab:[facility], [address] [place] [phone] Notes/Report: Troponin-I High Sensitivity 4.5 <3.5-35.0 ng/L The [place] high sensitivity Troponin-I results should be used in conjunction with other diagnostic information such as ECG, clinical observations and information, and patient symptoms to aid in the diagnosis of NC. B Type Natriuretic Peptide Reviewed date:02/14/2024 06:45:28 AM Interpretation: Performing Lab:[facility], [address] [place] [phone] Notes/Report: B Type Natriuretic Peptide < 10 <100 pg/mL For those patients who are being treated with Natrecor (nesiritide, recombinant BNP), BNP testing should be performed at least two hours post treatment in order to ensure that only endogenous levels of BNP are detected. SARS-CoV2/FLU/RSV Reviewed date:02/14/2024 06:45:28 AM Interpretation: Performing Lab:[facility], [address] [place] [phone] Notes/Report: Influenza A PCR NEGATIVE Negative Influenza B PCR NEGATIVE Negative Resp Syncy Virus RNA Qual PCR NEGATIVE Negative SARS COV2 PCR INHOUSE NEGATIVE Negative All test results must be correlated with clinical findings. Negative results do not preclude SARS-CoV2, influenza A virus, influenza B virus and/or RSV infection and should not be used as the sole basis for treatment or other patient management decisions. Negative results must be combined with clinical observations, patient history, and epidemiological information. This test has not been evaluated for monitoring treatment of infection. This test has been authorized by the FDA under an Emergency Use Authorization (EUA) for use by authorized laboratories. Testing performed on the [employer] GeneXpert utilizing real-time RT-PCR. All SARS CoV2 and positive influenza A/B results are reported to [facility]. Blood Culture (First) Reviewed date:02/18/2024 04:50:12 AM Interpretation: Performing Lab:[address] [address] Notes/Report: Blood Culture (First) No growth after 5 days. Blood Culture (Second) Reviewed date:03/11/2024 07:08:46 AM Interpretation: Performing Lab:[address] [address] Notes/Report: Blood Culture (Second) No growth after 5 days. Venous Blood Gases - POC Reviewed date:02/14/2024 06:45:28 AM Interpretation: Performing Lab:[facility], [address] [place] [phone] Notes/Report: VBG pH 7.38 7.32-7.43 METER #: [id number] additional_comment: CB N-Gloria VBG pCO2 57 METER #: [id number] additional_comment: CB N-Gloria VBG pO2 85 METER #: [id number] additional_comment: CB N-Gloria VBG Base Excess 7.2 METER #: [id number] additional_comment: CB N-Gloria VBG HCO3 34 22-26 mmol/L METER #: [id number] additional_comment: CB N-Gloria VBG O2 % Saturation 98.0 METER #: [id number] additional_comment: CB N-Gloria CT angio chest PE protocol Reviewed date:02/14/2024 06:45:28 AM Interpretation: Performing Lab: Notes/Report: [address] [place] [address] CT Scan Report Signed Patient: Phil Bernardo MR#: [id number] 77 : 1965 Acct:[id number] Age/Sex: 58 / M ADM Date: 02/13/24 Loc: [facility]: Pascale Cabrera MD Ordering Physician: Pascale Cabrera MD Date of Service: 02/13/24 Procedure(s): CT angio chest PE protocol Accession Number(s): [id number] cc: Leonard Boston MD; Pascale Cabrera MD EXAMINATION: CT ANGIOGRAM OF THE CHEST WITH AND WITHOUT CONTRAST (CT PULMONARY ANGIOGRAM FOR PE) CLINICAL INFORMATION: Reason for Exam chest pain, dyspnea COMPARISON: None available. TECHNIQUE: Prior to contrast administration, noncontrast localization images were obtained. Subsequently, multidetector volumetric imaging was performed from the thoracic inlet to below the diaphragms following the administration of 85 mL Omnipaque 350 intravenous contrast. No contrast reaction reported Sagittal, coronal, and MIP oblique sagittal reformatted images were obtained on the CT workstation, uploaded to PACS, and reviewed. This CT examination was performed using dose optimization techniques as appropriate, variously including the following: *Automated exposure control *Adjustment of mA and/or kV according to patient size (this includes techniques or standardized protocols for targeted exams where dose is matched to indication/reason for exam; i.e. extremities or head) *Use of iterative reconstruction technique Total exam dose-length product 422 mGy-cm FINDINGS: QUALITY OF STUDY/CONTRAST BOLUS: Satisfactory. PULMONARY ARTERIES: No pulmonary emboli. THORACIC AORTA: No aneurysm. LUNG: There is basilar atelectatic change and/or scarring. The lungs are otherwise clear. PLEURA: No pleural effusion or pneumothorax. MEDIASTINUM: Normal heart size. No pericardial effusion. No hilar or mediastinal lymphadenopathy. No evidence of septal bowing or right heart strain. CORONARY ARTERY CALCIFICATION: None visualized on this study. CHEST WALL/AXILLA: No axillary or internal mammary lymphadenopathy. OSSEOUS STRUCTURES: No acute or suspicious osseous abnormality. UPPER ABDOMEN: Unremarkable. No reflux of contrast into the hepatic veins to suggest elevated right heart pressures. CT/CT angio chest PE protocol IMPRESSION: No evidence of pulmonary embolism. Bibasilar atelectatic change and/or scarring. VTE: negative. Dictated By: Gene Elmore MD Signed By: <Electronically signed by Gene Elmore MD in OV> 02/13/24621 DD/ 0520 TD/TT: Lugger: [place] [address] [address] Scan Report Signed Patient: Mary Bernardo MR#: [id number] 75 : 1965 Acct:[id number] Age/Sex: 58 / M ADM Date: 02/13/24 Loc: [place] [address]: Pascale Cabrera MD Ordering Physician: Pascale Cabrera MD Date of Service: 02/13/24 Procedure(s): CT ang io chest PE protocol Accession Number(s): [id number] cc: Leonard Boston MD; Pascale Cabrera MD EXAMINATION: CT ANGIOGRAM OF THE CHEST WITH AND WITHOUT CONTRAST (CT PULMONARY ANGIOGRAM FOR PE) CLINICAL INFORMATION: Reason for Exam ches t pain, dyspnea COMPARISON: None available. TECHNIQUE: Prior to contrast administration, noncontrast localization images were obtained. Subsequent ly, multidetector volumetric imaging was performed from the thoracic inlet to below the diaphragms following the administration of 85 mL Omnipaque 350 intravenous contrast. No contrast reaction reported Sagittal, coronal, a nd MIP oblique sagittal reformatted images were obtained on the CT workstation, uploaded to PACS, and reviewed. This CT examination was performed using dose optimization techniques as appropriate, various ly including the following: *Automated exposure control *Adjustment of mA an d/or kV according to patient size (this includes techniques or standardized protocols for targeted exams where dose is matched to indication/reason for exam; i.e. extremities or head) *Use of iterative reconstruction technique Total exam dose-tahira th product 422 mGy-cm FINDINGS: QUALITY OF STUDY/CONTRAST BOLUS: Satisfactory. PULMONARY ARTERIES: No pulmonary emboli. THORACIC AORTA: No aneurysm. LUNG: There is basil ar atelectatic change and/or scarring. The lungs are otherwise clear. PLEURA: No pleural effusion or pneumothorax. MEDIASTINUM: Normal heart size. No pericardial effusion. No hilar or mediastinal lymphadenopathy. No evidence of septal bowing or right heart strain. CORONARY ARTERY CALCIFICATION: None visualized on this study. CHEST WALL/AXILLA: N o axillary or internal mammary lymphadenopathy. OSSEOUS STRUCTURES: No acute or suspicious osseous abnormality. UPPER ABDOMEN: Unremarkable. No reflux of contrast into the hepatic veins to suggest elevated right heart pressures. C T/CT angio chest PE protocol IMPRESSION: No evidence of pulmo nary embolism. Bibasilar atelectatic change and/or scarring. VTE: negative. Dictated By: Uday Elmore MD Signed By: <Electronically signed by Gene Elmore MD in OV> 02/13/24 0622 DD/ 0520 TD/TT: Lugger: XR chest 1V Reviewed date:02/14/2024 06:45:28 AM Interpretation: Performing Lab: Notes/Report: [address] [address] XRay Report Signed Patient: Phil Bernardo MR#: [id number] 75 : 1965 Acct:[id number] Age/Sex: 58 / M ADM Date: 02/13/24 Loc: .ED Attending Dr: Ordering Physician: Roxann Robins DO Date of Service: 02/13/24 Procedure(s): XR chest 1V Accession Number(s): [id number] cc: Leonard Boston MD; Roxann Robins DO EXAMINATION: XR CHEST CLINICAL INFORMATION: Dyspnea. COMPARISON: 01/22/2024 TECHNIQUE: Frontal view of the chest was obtained. FINDINGS: The cardiomediastinal silhouette is stable. There is lingular and right middle lobe scarring. There is no definitive focal consolidation or pleural effusions. The bony structures and soft tissues are unremarkable. XR/XR chest 1V IMPRESSION: Lingular and right middle lobe scarring. No definitive focal consolidation or pleural effusions. Dictated By: Gene Elmore MD Signed By: <Electronically signed by Gene Elmore MD in OV> 02/13/24 0310 DD/ 0247 TD/TT: Lugger: [address] [address] XRay Report Signed Patient: Mary Bernardo MR#: [id number] 77 : 1965 Acct:[id number] Age/Sex: 58 / M ADM Date: 02/13/24 Loc: .ED Attending Dr: Ordering Physician: Roxann Robins DO Date of Service: 02/13/24 Procedure(s): XR yancy st 1V Accession Number(s): [id number] cc: Leonard Boston MD; Roxann Robins DO EXAMINATION: XR CHEST CLINICAL INFORMATION: Dyspnea. COMPARISON: 01/22/2024 TECHNIQUE: Frontal view of the chest was obtained. FINDINGS: The cardiomediastina l silhouette is stable. There is lingular and right middle lobe scarring . There is no definitive focal consolidation or pleural effusions. T he bony structures and soft tissues are unremarkable. X R/XR chest 1V IMPRESSION: Lingular and right middle lobe scarring. No definitive focal consolidation or ple ural effusions. Dictated By: Uday Elmore MD Signed By: <Electronically signed by Gene Elmore MD in OV> 02/13/24309 DD/ 6 TD/TT: Lugger: Complete Blood Count Auto Di ff Reviewed date:02/14/2024 06:45:27 AM Interpretation: Performing Lab:[facility], [address] [place] [phone] Notes/Report: White Blood Count 10.2 4.8-10.8 X10*3/uL Red Blood Count 4.98 4.60-5.80 X10*6/uL Hemoglobin 14.7 14.0-18.0 g/dl Hematocrit 45.7 42.0-52.0 % Mean Corpuscular Volume 91.8 80.0-98.0 fL Mean Corpuscular Hemoglobin 29.5 27.0-33.0 pg Mean Corpuscular HGB Conc 32.2 31.0-36.0 g/dl Red Cell Distribution Width 15.8 11.0-16.0 % Platelet Count 247 160-400 X10*3/uL Mean Platelet Volume 9.6 9.4-12.4 fL Neutrophils Percent Auto 82.1 45-73 % Imm Gran Pct Auto 0.6 0.0-0.4 % Lymphocytes Percent Auto 12.0 20-40 % Monocytes Percent Auto 3.3 2-11 % Eosinophils Percent Auto 1.7 0-4 % Basophils Percent Auto 0.3 0-2 % NRBC Pct Auto 0.0 0.0-0.2 /100WBC Neutrophils Absolute Auto 8.3 2.0-8.3 x10*3/u L Imm Gran Abs Auto 0.06 0.00-0.03 X10*3/uL Lymphocytes Absolute Auto 1.2 1.2-4.9 X10*3/u L Monocytes Absolute Auto 0.3 0.1-1.2 X10*3/uL Eosinophils Absolute Auto 0.2 0.0-0.4 X10*3/u L Basophils Absolute Auto 0.0 0.0-0.2 X10*3/uL NRBC Abs Auto 0.000 0.0-0.012 X10*3/uL Basic Metabolic Panel Reviewed date:02/14/2024 06:45:27 AM Interpretation: Performing Lab:[facility], [address] [place] [phone] Notes/Report: Sodium 137 135-145 mmol/L Potassium 4.2 3.3-5.1 mmol/L Chloride 100 96-108 mmol/L Carbon Dioxide 28 22-29 mmol/L Anion Gap 13 12-20 Blood Urea Nitrogen 10 9-16 mg/dL Creatinine 0.87 0.5-1.4 mg/dL Creatinine Clr Calc Pharmacy 129.0 eGFR (calculated from the MDRD study equation) and eCrCl (calculated from the Cockcroft-Gault equation) are based on different parameters and may not yield comparable results. If eCrCl result is absurd, please check patient's height/weight. Estimated Glomerular Filt Rate > 60 NOTE: For -Kenyan individuals, multiply the result by 1.210. Chronic Kidney Disease: Estimated GFR < 60 mL/min/1.73m2 Severe Kidney Disease: Estimated GFR < 15 mL/min/1.73m2 Glucose Random 172 60-115 mg/dL Calcium 9.2 8.4-10.2 mg/dL Arterial Blood Gases - POC Reviewed date:02/15/2024 06:49:39 PM Interpretation: Performing Lab:[facility], [address] [place] [phone] Notes/Report: RESULT DID NOT CROSS INTERFACE, ENTERED MANUALLY BY DELTA ON 02/15/24. ABG pH 7.41 7.35-7.45 ABG pCO2 52 32-45 mmHg ABG pO2 71 83-108 mmHg ABG Base Excess 7.9 ABG HCO3 34 22-26 mmol/L ABG O2 % Saturation 93.0 Complete Blood Count Auto Di ff Reviewed date:05/07/2024 07:36:32 AM Interpretation: Performing Lab:[facility], [address] [place] [phone] Notes/Report: White Blood Count 11.4 4.8-10.8 X10*3/uL Red Blood Count 5.20 4.60-5.80 X10*6/uL Hemoglobin 15.5 14.0-18.0 g/dl Hematocrit 47.4 42.0-52.0 % Mean Corpuscular Volume 91.2 80.0-98.0 fL Mean Corpuscular Hemoglobin 29.8 27.0-33.0 pg Mean Corpuscular HGB Conc 32.7 31.0-36.0 g/dl Red Cell Distribution Width 15.0 11.0-16.0 % Platelet Count 352 160-400 X10*3/uL Mean Platelet Volume 9.5 9.4-12.4 fL Neutrophils Percent Auto 57.7 45-73 % Imm Gran Pct Auto 0.4 0.0-0.4 % Lymphocytes Percent Auto 31.1 20-40 % Monocytes Percent Auto 6.2 2-11 % Eosinophils Percent Auto 4.0 0-4 % Basophils Percent Auto 0.6 0-2 % NRBC Pct Auto 0.0 0.0-0.2 /100WBC Neutrophils Absolute Auto 6.5 2.0-8.3 x10*3/u L Imm Gran Abs Auto 0.05 0.00-0.03 X10*3/uL Lymphocytes Absolute Auto 3.5 1.2-4.9 X10*3/u L Monocytes Absolute Auto 0.7 0.1-1.2 X10*3/uL Eosinophils Absolute Auto 0.5 0.0-0.4 X10*3/u L Basophils Absolute Auto 0.1 0.0-0.2 X10*3/uL NRBC Abs Auto 0.000 0.0-0.012 X10*3/uL Prothrombin Time INR Reviewed date:05/07/2024 07:36:32 AM Interpretation: Performing Lab:[facility], [address] [place] [phone] Notes/Report: Prothrombin Time 11.5 10.9-12.4 SEC INTERNATIONAL NORM RATIO 1.0 0.9-1.1 INTERNATIONAL NORMALIZED RATIO (INR) REFERENCE RANGES Reference Range For patients not on anticoagulant therapy: 0.9 - 1.1 INR ranges for oral anticoagulant therapy: For prevention and treatment of venous thrombosis and pulmonary embolism: 2.0 - 3.0 For acute myocardial infarction with aspirin therapy: 2.0 - 3.0 For acute myocardial infarction without aspirin therapy: 3.0 - 4.0 For patients with mechanical prosthetic heart valves: 2.5 - 3.5 Comprehensive Met. Panel Reviewed date:05/07/2024 07:36:32 AM Interpretation: Performing Lab:[facility], [address] [place] [phone] Notes/Report: Sodium 140 135-145 mmol/L Potassium 3.6 3.3-5.1 mmol/L Chloride 103 96-108 mmol/L Carbon Dioxide 28 22-29 mmol/L Anion Gap 13 12-20 Blood Urea Nitrogen 9 9-16 mg/dL Creatinine 0.88 0.5-1.4 mg/dL Creatinine Clr Calc Pharmacy 126.6 eGFR (calculated from the MDRD study equation) and eCrCl (calculated from the Cockcroft-Gault equation) are based on different parameters and may not yield comparable results. If eCrCl result is absurd, please check patient's height/weight. Estimated Glomerular Filt Rate > 60 NOTE: For -Kenyan individuals, multiply the result by 1.210. Chronic Kidney Disease: Estimated GFR < 60 mL/min/1.73m2 Severe Kidney Disease: Estimated GFR < 15 mL/min/1.73m2 Glucose Random 125 60-115 mg/dL Calcium 9.9 8.4-10.2 mg/dL Bilirubin Total 0.2 0.0-1.0 mg/dL Aspartate Amino Transferase 19 5-37 U/L Alanine Aminotransferase 27 0-40 U/L Total Protein 7.6 6.5-8.0 g/dL Albumin Level 3.7 3.5-5.0 g/dL Alkaline Phosphatase 119 39-117 U/L Magnesium Reviewed date:05/07/2024 07:36:32 AM Interpretation: Performing Lab:[facility], [address] [place] [phone] Notes/Report: Magnesium 2.0 1.6-2.6 mg/dL Troponin-I High Sensitivity Reviewed date:05/07/2024 07:36:32 AM Interpretation: Performing Lab:[facility], [address] [place] [phone] Notes/Report: Troponin-I High Sensitivity 5.4 <3.5-35.0 ng/L The [place] high sensitivity Troponin-I results should be used in conjunction with other diagnostic information such as ECG, clinical observations and information, and patient symptoms to aid in the diagnosis of NC. B Type Natriuretic Peptide Reviewed date:05/07/2024 07:36:32 AM Interpretation: Performing Lab:[facility], [address] [place] [phone] Notes/Report: B Type Natriuretic Peptide < 10 <100 pg/mL For those patients who are being treated with Natrecor (nesiritide, recombinant BNP), BNP testing should be performed at least two hours post treatment in order to ensure that only endogenous levels of BNP are detected. SARS-CoV2/FLU/RSV Reviewed date:05/07/2024 07:36:32 AM Interpretation: Performing Lab:[facility], [address] [place] [phone] Notes/Report: Influenza A PCR NEGATIVE Negative Influenza B PCR NEGATIVE Negative Resp Syncy Virus RNA Qual PCR NEGATIVE Negative SARS COV2 PCR INHOUSE NEGATIVE Negative All test results must be correlated with clinical findings. Negative results do not preclude SARS-CoV2, influenza A virus, influenza B virus and/or RSV infection and should not be used as the sole basis for treatment or other patient management decisions. Negative results must be combined with clinical observations, patient history, and epidemiological information. This test has not been evaluated for monitoring treatment of infection. This test has been authorized by the FDA under an Emergency Use Authorization (EUA) for use by authorized laboratories. Testing performed on the [employer] GeneXpert utilizing real-time RT-PCR. All SARS CoV2 and positive influenza A/B results are reported to [facility]. Venous Blood Gases - POC Reviewed date:05/07/2024 07:36:32 AM Interpretation: Performing Lab:[facility], [address] [place] [phone] Notes/Report: VBG pH 7.39 7.32-7.43 METER #: [id number] additional_comment: Cb greenls VBG pCO2 48 METER #: [id number] additional_comment: Junito duran VBG pO2 71 METER #: [id number] additional_comment: Junito duran VBG Base Excess 3.6 METER #: [id number] additional_comment: Junito duran VBG HCO3 29 22-26 mmol/L METER #: [id number] additional_comment: Junito duran VBG O2 % Saturation 93.0 METER #: [id number] additional_comment: Junito duran XR chest 1V Reviewed date:05/07/2024 07:36:32 AM Interpretation: Performing Lab: Notes/Report: [address] [address] XRay Report Signed Patient: Phil Bernardo MR#: [id number] 77 : 1965 Acct:[id number] Age/Sex: 58 / M ADM Date: 04/22/24 Loc: .ED Attending Dr: Ordering Physician: Jennifer Bocanegra Date of Service: 04/22/24 Procedure(s): XR chest 1V Accession Number(s): [id number] cc: Leonard Boston MD; Jennifer Bocanegra EXAMINATION: XR CHEST CLINICAL INFORMATION: Shortness of breath COMPARISON: Prior chest November 2023 TECHNIQUE: Frontal view of the chest was obtained. FINDINGS: There is linear opacity in the left mid to lower lung unchanged compared to prior compatible with discoid atelectasis. Lungs otherwise clear. XR/XR chest 1V IMPRESSION: Linear opacity in the left mid to lower lung compatible with discoid atelectasis. Electronically signed by: Toni Fortune MD 04/22/2024 08:03 AM EDT Dictated By: Toni Fortune MD Signed By: <Electronically signed by Toni Fortune MD in OV> 04/22/24 0803 DD/ 0749 TD/TT: 04/22/24 0750 Lugger: VLADIMIR [address] [address] XRay Report Signed Patient: Mary Bernardo MR#: [id number] 77 : 1965 Acct:[id number] Age/Sex: 58 / M ADM Date: 04/22/24 Loc: [place].ED Attending Dr: Ordering Physician: Jennifer Bocanegra Date of Service: 04/22/24 Procedure(s): XR yancy st 1V Accession Number(s): [id number] cc: Leonard Boston MD; Jennifer Bocanegra EXAMINATION: XR CHEST CLINICAL INFORMATION: Shortness of breath COMPARISON: Prior chest November 2023 TECHNIQUE: Frontal view of the chest was obtained. FINDINGS: There is linear opac ity in the left mid to lower lung unchanged compared to prior compatible with discoid atelectasis. Lungs otherwise clear. X R/XR chest 1V IMPRESSION: Linear opacity in th e left mid to lower lung compatible with discoid atelectasis. Electronically radha d by: Toni Fortune MD 04/22/2024 08:03 AM EDT RP Dictated By: Toni Fortune MD Signed By: <Electronically signed by Toni Fortune MD in OV> 04/22/24 0803 DD/ 0749 TD/TT: 04/22/24 0750 Lugger: VLADIMIR Lopez. Panel Reviewed date:05/07/2024 07:36:32 AM Interpretation: Performing Lab:[facility], [address] [place] [phone] Notes/Report: Sodium 138 135-145 mmol/L Potassium 5.4 3.3-5.1 mmol/L Chloride 98 96-108 mmol/L Carbon Dioxide 32 22-29 mmol/L Anion Gap 13 12-20 Blood Urea Nitrogen 14 9-16 mg/dL Creatinine 1.15 0.5-1.4 mg/dL Creatinine Clr Calc Pharmacy 96.9 eGFR (calculated from the MDRD study equation) and eCrCl (calculated from the Cockcroft-Gault equation) are based on different parameters and may not yield comparable results. If eCrCl result is absurd, please check patient's height/weight. Estimated Glomerular Filt Rate > 60 NOTE: For -Kenyan individuals, multiply the result by 1.210. Chronic Kidney Disease: Estimated GFR < 60 mL/min/1.73m2 Severe Kidney Disease: Estimated GFR < 15 mL/min/1.73m2 Glucose Random 151 60-115 mg/dL Calcium 10.3 8.4-10.2 mg/dL Bilirubin Total 0.2 0.0-1.0 mg/dL Aspartate Amino Transferase 18 5-37 U/L Alanine Aminotransferase 26 0-40 U/L Total Protein 8.0 6.5-8.0 g/dL Albumin Level 3.9 3.5-5.0 g/dL Alkaline Phosphatase 111 39-117 U/L Electrolytes Reviewed date:05/07/2024 07:36:32 AM Interpretation: Performing Lab:[facility], [address] [place] [phone] Notes/Report: Sodium 135 135-145 mmol/L Potassium 4.5 3.3-5.1 mmol/L Slight Hemoly sis Chloride 97 96-108 mmol/L Carbon Dioxide 27 22-29 mmol/L Anion Gap 16 12-20 Reason For Referral Reason Consult and Treat Nu trition Diagnosis 1 Morbid obesity (E66. 01) Diagnosis 2 Hyperlipidemia (E78. 5) Referral Organization Leonard Boston III, MD Referring Provider First Name Leonard Referring Provider Last Name Ludy Referring Provider Speciality Internal M edicine Referred Provider [facility] Referred Provider Specialty Endocrinolog y General Notes Yu Buck 2023 03:55:10 PM EDT > Faxed referral and progress noteHeber Amber 02/08/2024 03:58:15 PM EDT > stated did not have referral. Refaxed referral, Yu Buck 02/09/2024 11:10:21 AM EDT > Office stated they have contacted the patient three times and the patient now has to contact them to schedule an appointment. Contacted and spoke with patient regarding this information. Stated she will contact the office to schedule this appointment. Referral Priority Routine Referral Appointment Date 03/20/2024 Reason Evaluate and Treat Pulmonary Rehab Diagnosis 1 Mild intermittent as thma without complication (J45.20) Diagnosis 2 Sleep apnea (G47.30) Diagnosis 3 Pulmonary emphysema, unspecified emphysema type (J43.9) Referral Organization Leonard Boston III, MD Referring Provider First Name Leonard Referring Provider Last Name Ludy Referring Provider Speciality Internal M edicine Referred Provider [facility], [facility] Referred Provider Specialty Unknown General Notes Yu Buck 04/25 02:13:36 PM > referral was faxed with progress note on 03/14/2024, Brandon Yu 05/24/2024 03:02:35 PM > Patient has not been scheduled at this time and was advised to have the patient call to schedule an appointment. Patient was contacted and given the pulmonary rehab number to call and schedule Referral Priority Routine Referral Appointment Date 05/28/2024 Medications Medication SIG (Take, Route, Frequency, Duration) Notes Start Date End Date Status Theophylline ER 400 MG TAKE 1 TABLET BY MOUTH EVERY DAY Oral Active MiraLax 17 GM 1 packet mixed with 8 ounces of fluid Orally Once a day Active predniSONE 20 MG TAKE 1 TABLET BY EDWARD TH EVERY DAY WITH FOOD OR MILK FOR 15 DAYS for 15 Active predniSONE 20 MG 1 tablet with [...] O rally Once a day 12/25/2021 Active [facility] Purelax 17 GM/SCOOP (Prior Auth#:[id number]) Oral Active Tadalafil 20 MG TAKE 1 TABLET BY EDWARD TH EVERY DAY FOR 30 DAYS for 30 Active hydroCHLOROthiazide 25 MG TAKE 1 TABLET BY MOUTH EVERY DAY Active Immunizations Vaccine Route Administration Date Status Comme nts COVID- 19 Vaccine Unknown 11/21/2020 Administered COVID- 19 Vaccine Unknown 12/19/2020 Administered COVID- 19 Vaccine Unknown 08/05/2021 Administered Td Unknown 04/25/2019 Administered Influenza, quad Unknown 05/14/2021 Administered Influenza, quad Unknown 05/26/2020 Administered Social History Tobacco Use: Social History Observation [...] in the past year? Never (0 point) Problems Problem Type SNOMED Code ICD Code Onset Dates Problem Status W/U Status Risk Notes Problem 9091235 Former smoker (Z87.891) Active confirmed We made a plan to resist the labs in times of stress and illness. He says he is committed to not smoking. Problem Hyperlipidemia (36634239) Hyperlipidemia (E78.5) Active confirmed The current lipid profile shows fair control of his lipids. I have recommended aggressive weight loss and a healthy Mediterranean diet. No change in his regimen was needed today. Problem 967604262 GERD without esophagitis (K21.9) Active confirmed His reflux symptoms are well controlled with [id number] er medication. No change was necessary today. Problem Benign prostatic hypertrophy without outflow obstruction (506610472) BPH (benign prostatic hypertrophy) (N40.0) Active confirmed He rises from sleep once or twice a night to urinate. We have discussed lifestyle modification as well as to reduce nocturnal urinating. Problem 77842003 Essential hypertension (I10) Active confirmed His blood pressure is controlled. He will benefit from additional reduction his pressure. He will return to the office in the near future to check this again.He will be treated. If necessary. Problem 673515765 Mild intermittent asthma without complication (J45.20) Active confirmed He is using his inhalers correctly. No wheezing was heard today. His respiration has been comfortable. He is using his prednisone only on a when necessary basis. He has been compliant with his inhaled therapies. Problem Sleep apnea (10826635) Sleep apnea (G47.30) Active confirmed He will remain under the care of the current pulmonary physician. Problem 431429537 Umbilical hernia without obstruction and without gangrene (K42.9) Active confirmed It is a small hernia and is asymptomatic and will be observed. Problem 42734954 Pulmonary emphysema, unspecified emphysema type (J43.9) Active confirmed He is wearing oxygen at home now. His cotton seed culler is Dr. Choudhury. He will be seen monthly. Was recently hospitalized for several days with impending respiratory failure. He has been compliant with his medications. A long-term plan will be regular exercise aggressive weight reduction healthy diet to continue to refrain from smoking. He was referred back to pulmonary. Problem 030028085 Morbid obesity (E66.01) Active confirmed He has lost 2 pounds. We reviewed his diet and nutrition. 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 Vital Signs Heart Rate 104 /min 05/01/2024 Temperature 98.1 degrees Fahrenheit 05/01/2024 Blood pressure diastolic 89 mm Hg 05/01/2024 Height 67 in 05/01/2024 Blood pressure systolic 143 mm Hg 05/01/2024 Weight 281 lbs 05/01/2024 BMI 44.01 kg/m2 05/01/2024 Encounters Encounter Location Date Provider Diagnosis Leonard Boston III, MD [address] [place] [address] [place] [address] 10/05/2023 Leonard Boston Hyperlipidemia E78.5 ; Mild intermittent asthma without complication J45.20 ; Tobacco dependence F17.200 ; Pulmonary emphysema, unspecified emphysema type J43.9 ; GERD without esophagitis K21.9 ; BPH (benign prostatic hypertrophy) N40.0 ; Umbilical hernia without obstruction and without gangrene K42.9 ; Essential hypertension I10 and Rib pain R07.81 Leonard Boston III, MD [address] [place] [address] [place] [phone] 10/10/2023 Leonard Boston Hyperlipidemia E78.5 ; Closed fracture of one rib of left side with routine healing, subsequent encounter S22.32XD ; GERD without esophagitis K21.9 ; Mild intermittent asthma without complication J45.20 ; Tobacco dependence F17.200 ; Simple chronic bronchitis J41.0 ; Pulmonary emphysema, unspecified emphysema type J43.9 ; Sleep apnea G47.30 ; Morbid obesity E66.01 and BPH (benign prostatic hypertrophy) N40.0 Leonard Boston III, MD [address] [place] [address] [place] [id number] 11/01/2023 Leonard Boston Hyperlipidemia E78.5 ; GERD without esophagitis K21.9 ; Mild intermittent asthma without complication J45.20 ; Tobacco dependence F17.200 ; Essential hypertension I10 ; Edentulous K08.109 ; BPH (benign prostatic hypertrophy) N40.0 ; Sleep apnea G47.30 ; Morbid obesity E66.01 and Pulmonary emphysema, unspecified emphysema type J43.9 Leonard Boston III, MD [address] [place] [address] [place] [id number] 12/21/2023 Leonard Boston Hyperlipidemia E78.5 ; GERD without esophagitis K21.9 ; Mild intermittent asthma without complication J45.20 ; Tobacco dependence F17.200 ; BPH (benign prostatic hypertrophy) N40.0 and COPD, moderate J44.9 Leonard Boston III, MD [address] [place] [address] [place] [id number] 02/06/2024 Leonard Boston Hyperlipidemia E78.5 ; GERD without esophagitis K21.9 ; Mild intermittent asthma without complication J45.20 ; Tobacco dependence F17.200 ; Essential hypertension I10 ; Edentulous K08.109 ; Umbilical hernia without obstruction and without gangrene K42.9 ; BPH (benign prostatic hypertrophy) N40.0 and Pulmonary emphysema, unspecified emphysema type J43.9 Leonard Boston III, MD [address] [place] [address] [place] [address] 02/21/2024 Leonard Boston Tobacco dependence F17.200 ; Mild intermittent asthma without complication J45.20 ; Pulmonary emphysema, unspecified emphysema type J43.9 ; Sleep apnea G47.30 ; Morbid obesity E66.01 ; BPH (benign prostatic hypertrophy) N40.0 ; Umbilical hernia without obstruction and without gangrene K42.9 and Essential hypertension I10 Leonard Boston III, MD [address] [place] [address] [place] [id number] 03/06/2024 Leonard Boston Essential hypertensi on I10 ; Mild intermittent asthma without complication J45.20 ; GERD without esophagitis K21.9 ; Hyperlipidemia E78.5 ; BPH (benign prostatic hypertrophy) N40.0 ; Umbilical hernia without obstruction and without gangrene K42.9 ; Edentulous K08.109 ; Morbid obesity E66.01 ; Former smoker Z87.891 ; Pulmonary emphysema, unspecified emphysema type J43.9 and Sleep apnea G47.30 Leonard Boston III, MD [address] [place] [address] [place] [id number] 03/28/2024 Leonard Boston Essential hypertensi on I10 ; GERD without esophagitis K21.9 ; Mild intermittent asthma without complication J45.20 ; BPH (benign prostatic hypertrophy) N40.0 ; Morbid obesity E66.01 ; Pulmonary emphysema, unspecified emphysema type J43.9 ; Sleep apnea G47.30 and Former smoker Z87.891 Leonard Boston III, MD [address] [place] [address] [place] [address] 05/01/2024 Leonard Boston Essential hypertensi on I10 ; Pulmonary emphysema, unspecified emphysema type J43.9 ; Sleep apnea G47.30 ; Former smoker Z87.891 ; Morbid obesity E66.01 and BPH (benign prostatic hypertrophy) N40.0 Leonard Boston III, MD [address] [place] [address] [place] [phone] 09/07/2023 Leonard Boston III, MD [address] [place] [address] [place] [phone] 09/07/2023 Leonard Boston III, MD [address] [place] [address] [place] [id number] 12/14/2023 Leonard Boston III, MD [address] [place] [address] [place] [phone] 03/14/2024 Leonard Boston III, MD [address] [place] [address] [place] [phone] 04/03/2024 Leonard Boston III, MD [address] [place] [address] [place] [address] 04/30/2024 Leonard Boston Assessments Encounter Date Diagnosis (ICD Code) Assessment Notes Treat ment Notes Treatment Clinical Notes 10/05/2023 Hyperlipidemia (ICD-10 - E78.5) 10/05/2023 Mild intermittent asthma without complication (ICD-10 - J45.20) I have given him 10 days of prednisone. He had mild inspiratory wheezes today. He will have pulmonary function tests and likely a pulmonary consultation to be evaluated for COPD, asthmatic bronchitis and/or emphysema. He may need a maintenance inhaler. 10/10/2023 Hyperlipidemia (ICD-10 - E78.5) Comprehensive blood work with a fasting lipid profile is being done periodically. No change in his medications was made today. 10/10/2023 Closed fracture of one rib of left side with routine healing, subsequent encounter (ICD-10 - S22.32XD) X-ray show a healed left ninth rib fracture. He recently exacerbated this fracture and the pain is now slowly improving. He will continue on current therapy. 11/01/2023 Hyperlipidemia (ICD-10 - E78.5) The current lipid profile shows fair control of his lipids. I have recommended aggressive weight loss and a healthy Mediterranean diet. No change in his regimen was needed today. 11/01/2023 GERD without esophagitis (ICD-10 - K21.9) His reflux symptoms are well controlled with anbs-hjb-getjaee medication. No change was necessary today. 12/21/2023 Hyperlipidemia (ICD-10 - E78.5) The current lipid profile shows fair control of his lipids. I have recommended aggressive weight loss and a healthy Mediterranean diet. No change in his regimen was needed today. 12/21/2023 GERD without esophagitis (ICD-10 - K21.9) His reflux symptoms are well controlled with dnuk-uwa-ddcxzoc medication. No change was necessary today. 02/06/2024 Hyperlipidemia (ICD-10 - E78.5) The current lipid profile shows fair control of his lipids. I have recommended aggressive weight loss and a healthy Mediterranean diet. No change in his regimen was needed today. 02/06/2024 GERD without esophagitis (ICD-10 - K21.9) His reflux symptoms are well controlled with fmzs-zvz-zglwpfo medication. No change was necessary today. 02/21/2024 Tobacco dependence (ICD-10 - F17.200) We discussed the long-term consequences of smoking. We discussed emphysema COPD and chronic bronchitis. I highly recommended smoking cessation. I discussed with him the smoking cessation programs available at all local hospitals and [facility]. 02/21/2024 Mild intermittent asthma without complication (ICD-10 - J45.20) He is using his inhalers correctly. No wheezing was heard today. His respiration has been comfortable. 03/06/2024 Essential hypertension (ICD-10 - I10) His blood pressure is controlled The mild elevation and the systolic pressures likely due his prednisone. He will return to the office in the near future to check this again.He will be treated. If necessary. 03/06/2024 Mild intermittent asthma without complication (ICD-10 - J45.20) He is using his inhalers correctly. No wheezing was heard today. His respiration has been comfortable. He is using his prednisone only on a when necessary basis. He has been compliant with his inhaled therapies. 03/28/2024 GERD without esophagitis (ICD-10 - K21.9) His reflux symptoms are well controlled with odrw-lvn-plxtwvi medication. No change was necessary today. 03/28/2024 Essential hypertension (ICD-10 - I10) His blood pressure is controlled The mild elevation and the systolic pressures likely due his prednisone. He will return to the office in the near future to check this again.He will be treated. If necessary. 05/01/2024 Essential hypertension (ICD-10 - I10) His blood pressure is controlled. He will benefit from additional reduction his pressure. He will return to the office in the near future to check this again.He will be treated. If necessary. 05/01/2024 Pulmonary emphysema, unspecified emphysema type (ICD-10 - J43.9) He is wearing oxygen at home now. His cotton seed culler is Dr. Choudhury. He will be seen monthly. Was recently hospitalized for several days with impending respiratory failure. He has been compliant with his medications. A long-term plan will be regular exercise aggressive weight reduction healthy diet to continue to refrain from smoking. He was referred back to pulmonary. 10/05/2023 Tobacco dependence (ICD-10 - F17.200) We discussed the long-term consequences of smoking. We discussed emphysema COPD and chronic bronchitis. I highly recommended smoking cessation. I discussed with him the smoking cessation programs available at all local hospitals and [facility]. 10/10/2023 GERD without esophagitis (ICD-10 - K21.9) His reflux symptoms are well controlled with lbso-tne-rwiechj medication. No change was necessary today. 11/01/2023 Mild intermittent asthma without complication (ICD-10 - J45.20) He is using his inhalers correctly. No wheezing was heard today. His respiration has been comfortable. 12/21/2023 Mild intermittent asthma without complication (ICD-10 - J45.20) He is using his inhalers correctly. No wheezing was heard today. His respiration has been comfortable. 02/06/2024 Mild intermittent asthma without complication (ICD-10 - J45.20) He is using his inhalers correctly. No wheezing was heard today. His respiration has been comfortable. 02/21/2024 Pulmonary emphysema, unspecified emphysema type (ICD-10 - J43.9) He is wearing oxygen at home now. His cotton seed culler is Dr. Choudhury. He will be seen monthly. 03/06/2024 GERD without esophagitis (ICD-10 - K21.9) His reflux symptoms are well controlled with axdi-ycy-liqrbmd medication. No change was necessary today. 03/28/2024 Mild intermittent asthma without complication (ICD-10 - J45.20) He is using his inhalers correctly. No wheezing was heard today. His respiration has been comfortable. He is using his prednisone only on a when necessary basis. He has been compliant with his inhaled therapies. 05/01/2024 Sleep apnea (ICD-10 - G47.30) He will remain under the care of the current pulmonary physician. 10/05/2023 Pulmonary emphysema, unspecified emphysema type (ICD-10 - J43.9) 10/10/2023 Mild intermittent asthma without complication (ICD-10 - J45.20) I have given him 10 days of prednisone. He had mild inspiratory wheezes today. He will have pulmonary function tests and likely a pulmonary consultation to be evaluated for COPD, asthmatic bronchitis and/or emphysema. He may need a maintenance inhaler. 11/01/2023 Tobacco dependence (ICD-10 - F17.200) We discussed the long-term consequences of smoking. We discussed emphysema COPD and chronic bronchitis. I highly recommended smoking cessation. I discussed with him the smoking cessation programs available at all local hospitals and [facility]. 12/21/2023 Tobacco dependence (ICD-10 - F17.200) We discussed the long-term consequences of smoking. We discussed emphysema COPD and chronic bronchitis. I highly recommended smoking cessation. I discussed with him the smoking cessation programs available at all local hospitals and [facility]. 02/06/2024 Tobacco dependence (ICD-10 - F17.200) We discussed the long-term consequences of smoking. We discussed emphysema COPD and chronic bronchitis. I highly recommended smoking cessation. I discussed with him the smoking cessation programs available at all local hospitals and [facility]. 02/21/2024 Sleep apnea (ICD-10 - G47.30) He will remain under the care of the current pulmonary physician. 03/06/2024 Hyperlipidemia (ICD-10 - E78.5) The current lipid profile shows fair control of his lipids. I have recommended aggressive weight loss and a healthy Mediterranean diet. No change in his regimen was needed today. 03/28/2024 BPH (benign prostati c hypertrophy) (ICD-10 - N40.0) He rises from sleep once or twice a night to urinate. We have discussed lifestyle modification as well as to reduce nocturnal urinating. 05/01/2024 Former smoker (ICD-1 0 - Z87.891) We made a plan to resist the labs in times of stress and illness. He says he is committed to not smoking. 10/05/2023 GERD without esophagitis (ICD-10 - K21.9) His reflux symptoms are well controlled with vfdw-ctl-jmhaamv medication. No change was necessary today. 10/10/2023 Tobacco dependence (ICD-10 - F17.200) We discussed the long-term consequences of smoking. We discussed emphysema COPD and chronic bronchitis. I highly recommended smoking cessation. I discussed with him the smoking cessation programs available at all local hospitals and [facility]. 11/01/2023 Essential hypertension (ICD-10 - I10) His blood pressure is Elevated at 150/87 The mild elevation and the systolic pressures likely due his prednisone. He will return to the office in the near future to check this again.He will be treated. If necessary. 12/21/2023 BPH (benign prostati c hypertrophy) (ICD-10 - N40.0) He rises from sleep once or twice a night to urinate. We have discussed lifestyle modification as well as to reduce nocturnal urinating. 02/06/2024 Essential hypertension (ICD-10 - I10) His blood pressure is Elevated at 150/87 The mild elevation and the systolic pressures likely due his prednisone. He will return to the office in the near future to check this again.He will be treated. If necessary. 02/21/2024 Morbid obesity (ICD-10 - E66.01) He has gained 5 more pounds. We discussed his weight loss strategy. I offered to refer him to the weight-loss clinic but he declined. We made a plan to lose weight at a rate of one half of a pound per week. He will be seen back in the near future for surveillance. 03/06/2024 BPH (benign prostati c hypertrophy) (ICD-10 - N40.0) He rises from sleep once or twice a night to urinate. We have discussed lifestyle modification as well as to reduce nocturnal urinating. 03/28/2024 Morbid obesity (ICD-10 - E66.01) He has lost 2 pounds. We reviewed his diet and nutrition. He was begun on Wegovy injections 05/01/2024 Morbid obesity (ICD-10 - E66.01) He has lost 2 pounds. We reviewed his diet and nutrition. He was begun on Wegovy injections 10/05/2023 BPH (benign prostati c hypertrophy) (ICD-10 - N40.0) He rises from sleep once or twice a night to urinate. We have discussed lifestyle modification as well as to reduce nocturnal urinating. 10/10/2023 Simple chronic bronchitis (ICD-10 - J41.0) I strongly recommended smoking cessation. He will have an inhaler if necessary. 11/01/2023 Edentulous (ICD-10 - K08.109) I recommended he sees a dentist regularly to make sure that the dentures fit. 12/21/2023 COPD, moderate (ICD-10 - J44.9) He will continue on current therapy and finish his steroids. 02/06/2024 Edentulous (ICD-10 - K08.109) I recommended he sees a dentist regularly to make sure that the dentures fit. 02/21/2024 BPH (benign prostati c hypertrophy) (ICD-10 - N40.0) He rises from sleep once or twice a night to urinate. We have discussed lifestyle modification as well as to reduce nocturnal urinating. 03/06/2024 Umbilical hernia without obstruction and without gangrene (ICD-10 - K42.9) It is a small hernia and is asymptomatic and will be observed. 03/28/2024 Pulmonary emphysema, unspecified emphysema type (ICD-10 - J43.9) He is wearing oxygen at home now. His cotton seed culler is Dr. Choudhury. He will be seen monthly. 05/01/2024 BPH (benign prostati c hypertrophy) (ICD-10 - N40.0) He rises from sleep once or twice a night to urinate. We have discussed lifestyle modification as well as to reduce nocturnal urinating. 10/05/2023 Umbilical hernia without obstruction and without gangrene (ICD-10 - K42.9) It is a small hernia and is asymptomatic and will be observed. 10/10/2023 Pulmonary emphysema, unspecified emphysema type (ICD-10 - J43.9) 11/01/2023 BPH (benign prostati c hypertrophy) (ICD-10 - N40.0) He rises from sleep once or twice a night to urinate. We have discussed lifestyle modification as well as to reduce nocturnal urinating. 02/06/2024 Umbilical hernia without obstruction and without gangrene (ICD-10 - K42.9) It is a small hernia and is asymptomatic and will be observed. 02/21/2024 Umbilical hernia without obstruction and without gangrene (ICD-10 - K42.9) It is a small hernia and is asymptomatic and will be observed. 03/06/2024 Edentulous (ICD-10 - K08.109) I recommended he sees a dentist regularly to make sure that the dentures fit. 03/28/2024 Sleep apnea (ICD-10 - G47.30) He will remain under the care of the current pulmonary physician. 10/05/2023 Essential hypertension (ICD-10 - I10) His blood pressure is Elevated at 150/87 The mild elevation and the systolic pressures likely due his prednisone. He will return to the office in the near future to check this again.He will be treated. If necessary. 10/10/2023 Sleep apnea (ICD-10 - G47.30) 11/01/2023 Sleep apnea (ICD-10 - G47.30) 02/06/2024 BPH (benign prostati c hypertrophy) (ICD-10 - N40.0) He rises from sleep once or twice a night to urinate. We have discussed lifestyle modification as well as to reduce nocturnal urinating. 02/21/2024 Essential hypertension (ICD-10 - I10) His blood pressure is Elevated at 150/87 The mild elevation and the systolic pressures likely due his prednisone. He will return to the office in the near future to check this again.He will be treated. If necessary. 03/06/2024 Morbid obesity (ICD-10 - E66.01) He has gained 5 more pounds. We discussed his weight loss strategy. I offered to refer him to the weight-loss clinic but he declined. We made a plan to lose weight at a rate of one half of a pound per week. He will be seen back in the near future for surveillance. 03/28/2024 Former smoker (ICD-1 0 - Z87.891) 10/05/2023 Rib pain (ICD-10 - R07.81) There is a fracture of the left ninth rib which is either old or new. It is not certain at this time. The films will be reviewed. His pain is improving. 10/10/2023 Morbid obesity (ICD-10 - E66.01) He has gained 5 more pounds. We discussed his weight loss strategy. I offered to refer him to the weight-loss clinic but he declined. We made a plan to lose weight at a rate of one half of a pound per week. He will be seen back in the near future for surveillance. 11/01/2023 Morbid obesity (ICD-10 - E66.01) He has gained 5 more pounds. We discussed his weight loss strategy. I offered to refer him to the weight-loss clinic but he declined. We made a plan to lose weight at a rate of one half of a pound per week. He will be seen back in the near future for surveillance. 02/06/2024 Pulmonary emphysema, unspecified emphysema type (ICD-10 - J43.9) He is wearing oxygen at home now. His cotton seed culler is Dr. Choudhury. He will be seen monthly. 03/06/2024 Former smoker (ICD-1 0 - Z87.891) 10/10/2023 BPH (benign prostati c hypertrophy) (ICD-10 - N40.0) He rises from sleep once or twice a night to urinate. We have discussed lifestyle modification as well as to reduce nocturnal urinating. 11/01/2023 Pulmonary emphysema, unspecified emphysema type (ICD-10 - J43.9) 03/06/2024 Pulmonary emphysema, unspecified emphysema type (ICD-10 - J43.9) He is wearing oxygen at home now. His cotton seed culler is Dr. Choudhury. He will be seen monthly. 03/06/2024 Sleep apnea (ICD-10 - G47.30) He will remain under the care of the current pulmonary physician. 03/14/2024 Other Plan Of Treatment Pending Test Test Name Order Date PROFILE, FASTING (COMPREHENSIVE METABOLI C) 02/28/2023 PROFILE, FASTING (COMPREHENSIVE METABOLI C) 02/17/2023 PROFILE, FASTING (COMPREHENSIVE METABOLI C) 08/29/2020 PROFILE, FASTING (COMPREHENSIVE METABOLI C) 12/06/2022 LIPID PANEL 02/28/2023 LIPID PANEL 02/17/2023 LIPID PANEL 08/29/2020 LIPID PANEL 12/06/2022 BRAIN NATRIURETIC PEPTIDE (BNP) 02/18/20 PSA, TOTAL 12/06/2022 PSA, TOTAL SCREEN 08/29/2020 CBC w DIFF 12/06/2022 CBC w DIFF 02/28/2023 CBC w DIFF 02/17/2023 CBC w DIFF 08/29/2020 MRA BRAIN NO CONTRAST 12/15/2022 MRA NECK W&WO CONTRAST 12/15/2022 VITAMIN D 25-OH TOTAL 08/29/2020 PFT with DLCO and Blood Gases 03/10/2023 Electrolytes 12/25/2021 CT angio head neck 12/28/2022 Next Appt Details Provider Name:Leonard Birchne, 03/11/2025 09:30:00 AM, [address] [place] [address] REYN[address] JACOBS, [place], [address], Insurance Providers Payer Name Payer Address Payer Phone Subscriber Number Group Number Insured Name Patient Relationship to Insured Coverage Start Date Coverage End Date [employer] [address] [place] [address] [id number] PHIL BERNARDO Self - patient is the insured Medical (General) History Medical History History ICD Code Asthma J45.909 GERD (gastroesophageal reflux disease) K 21.9 Constipation K59.00 diverticulitis 2012 tobacco dependence COPD 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
== END 2024-08-07 16:17 | disposition home or self-care (01) ==
LOC: HO.CT 16:16
PROVIDERS: PCP Internal Medicine Medical Oncology; Visit Provider Internal Medicine Pulmonary Disease
DX: Z12.2 Encounter for screening for malignant neoplasm of respiratory organs (principal); Z87.891 Personal history of nicotine dependence
CPT/HCPCS: 71271

== ENCOUNTER → 2024-08-07 16:19 | Outpatient (BNV) | payer OTHER, SELFPAY | PROVIDERS: PCP Internal Medicine Medical Oncology; Visit Provider Radiology Vascular & Interventional Radiology | DX: Z87.891 Personal history of nicotine dependence (principal) | CPT/HCPCS: 71271 ==

== ENCOUNTER 2024-09-04 09:51 | Outpatient (AMB) | payer OTHER, SELFPAY ==
[2024-09-04 09:55] VITALS: BP 140/78; PULSE 100; O2SAT 92; BMI 44.1
--- NOTE | 2024-09-04 09:55 | MHC.OFFVIS ---
Vital Signs 09/04/24 09:55 Height 5 ft 8 in Weight 289 lb 14.526 oz BMI 44.1 BP 140/78 H Blood Pressure Location Rt brachial Position Sitting Pulse 100 Pulse Source Doppler Pulse Oximetry (%) 92 Oxygen Delivery Method Room Air Intake Visit Reasons: Obstructive sleep apnea Allergies No Known Allergies Allergy (Unknown, Verified 06/13/24 09:28) HPI HPI Obstructive sleep apnea: Details: 59-year-old gentleman recent 30+ pack-year smoker, quit 04/2023 now followed for pulmonary emphysema, KIRILL now on CPAP, and dyspnea on exertion. After the last office visit he was started on BiPAP , with significant improvement in his sleep symptoms. He is still having difficulties adjusting to using a BiPAP mask, however his AHI index has fallen 10 fold from 112 down to 12 events per hour with significant symptomatic benefit. Also, he had no recent hospitalizations for hypercapnia. Patient continues to use Anoro, duo nebs, Combivent, and albuterol MDI with reasonable control of his underlying COPD symptoms. He denies recent exacerbations. [facility] Medical History (Updated 06/13/24 @ 09:49 by Dagoberto Choudhury MD) KIRILL (obstructive sleep apnea) Smoker COPD (chronic obstructive pulmonary disease) HTN (hypertension) Acid reflux Diverticulitis Surgical History Hx of colonoscopy History of colostomy reversal H/O colostomy Family History Mother Diabetes Arthritis Sleep apnea COPD (chronic obstructive pulmonary disease) Father Stomach cancer Diabetes Arthritis Sister Arthritis Social History Household Members: Spouse Housing: Apartment Do you presently have visiting nurse or other home services: No Alcohol intake: former Comment: at bedside Patient Tobacco Use Status: Former Tobacco user Tobacco use type: Cigarette Cigarette Packs Per Day: 1 Cigarettes Per Day: 13 Years Smoked: 30 e-Cigarette/Vaping Use: Never Used Second Hand Smoke Exposure: No Advance Directives Date on File: 01/17/24 service: No Current occupational status: employed 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 Review of Systems Const Denies daytime sleepiness, Denies excessive sweating, Denies fatigue, Denies fever(s), Denies lethargy, Denies malaise, Denies night sweats, Denies snoring and Denies weight loss Eyes Denies blurry vision and Denies itchy eyes ENT Denies nasal congestion, Denies post nasal drip, Denies sinus pain, Denies sinus pressure and Denies other ( Thrush) Card Denies chest pain, Denies pedal edema, Denies dyspnea, Denies orthopnea and Denies paroxysmal nocturnal dyspnea Resp Denies cough, Denies hemoptysis, Denies excessive phlegm production, Denies dyspnea, Denies snoring and Denies wheezing GI Denies abdominal pain and Denies heartburn Musc Denies myalgias, Denies arthralgias and Denies joint swelling Skin/Breast Denies rash Neuro Denies memory loss and Denies seizure-like activity Psych Denies abnormal sleep pattern, Denies anxiety and Denies memory loss Endo Denies excessive sweating, Denies fatigue and Denies heat intolerance Liam/Lymph Denies easy bruising Aller/Immun Denies itchy eyes, Denies seasonal rhinorrhea and Denies wheezing Physical Exam Vital Signs: Last Vital Signs Pulse 100 09/04/24 09:55 BP 140/78 H 09/04/24 09:55 Pulse Ox 92 09/04/24 09:55 Oxygen Delivery Method Room Air 09/04/24 09:55 BMI result Body Mass Index 44.1 Const General: no acute distress and alert Nutritional Appearance: obese Orientation/consciousness: Other orientation findings ( oriented) HEENT Head: Yes atraumatic Eyes General: appearance normal, both eyes and all related structures Sclerae: sclerae normal EOM: EOMs intact bilaterally Neck Neck: Yes supple Lymphatic: no lymphadenopathy noted Resp Effort & Inspection: normal respiratory effort and no use of accessory muscles Auscultation: clear to auscultation bilaterally Cardio Rate: regular rate Rhythm: regular rhythm Heart sounds: no gallops, no murmurs and no rubs Skin General skin exam: other ( warm) Extrem General: No clubbing, No cyanosis and No edema Assessment & Plan Assessment & Plan (1) COPD (chronic obstructive pulmonary disease): Code(s): J44.9 - Chronic obstructive pulmonary disease, unspecified Category: Medical Plan: Well controlled on current regimen of Anoro, Combivent, and albuterol MDI. Continue current regimen. (2) KIRILL (obstructive sleep apnea): Code(s): G47.33 - Obstructive sleep apnea (adult) (pediatric) Category: Medical Plan: Significantly improved control on BiPAP. Continue current BiPAP therapy. (3) Personal history of nicotine dependence: Code(s): Z87.891 - Personal history of nicotine dependence Category: Medical Plan: Results of lung cancer screening CT chest from July of 2024 reviewed, no worrisome nodules. Continue yearly screening, next in July of 2025. (4) CO2 retention: Code(s): E87.29 - Other acidosis Category: Medical Plan: Well controlled on BiPAP, no recent hypercapnic episodes requiring hospitalization. Coding Level of Care Code Est Pt Level 4 (38186) Complex EM visit Add On G2211 Diagnoses COPD (chronic obstructive pulmonary disease) J44.9 KIRILL (obstructive sleep apnea) G47.33 Personal history of nicotine dependence Z87.891 CO2 retention E87.29
== END 2024-09-04 10:12 | disposition home or self-care (01) ==
PROVIDERS: PCP Internal Medicine Medical Oncology; Visit Provider Internal Medicine Pulmonary Disease
DX: J44.9 Chronic obstructive pulmonary disease, unspecified (principal); G47.33 Obstructive sleep apnea (adult) (pediatric); Z87.891 Personal history of nicotine dependence; E87.29 Other acidosis
CPT/HCPCS: 99214; G2211

== ENCOUNTER 2024-10-04 04:27 | Emergency (ER) | payer OTHER, SELFPAY ==
--- NOTE | ~2024-10-04 | CT_ITS ---
CLINICAL HISTORY: diffuse pain, hx diverticulits w reversal CT abdomen and pelvis with contrast Comparison: CT - CT ABDOMEN PELVIS W IV CON - 10/04/24 05:22 EDT Findings: There is anterior basilar atelectasis. The gallbladder and solid organs are within normal limits. No renal stones. There are postoperative changes in the sigmoid colon. There may be a small solitary diverticulum in the descending colon. There is otherwise no significant diverticulosis. There is no evidence of diverticulitis. The GI tract is otherwise unremarkable. There is a small umbilical hernia containing fat only. There is a small ventral hernia at the level of the transverse colon containing fat only. There are some mild associated inflammatory changes. Pelvic contents unremarkable. Normal appendix. No acute fracture. IMPRESSION: 1. Postoperative changes sigmoid colon. No evidence of diverticulitis. 2. Small ventral hernia at the level of the transverse colon containing fat only. There are minor associated inflammatory changes. 3. Small umbilical hernia containing fat only. This document has been electronically signed by: Swapnil Thomason MD on 10/04/2024 07:02:40
[2024-10-04 04:29] VITALS: BP 137/76; PULSE 99; RESP 24; TEMP 36.6; O2SAT 94; BMI 40.9
--- NOTE | 2024-10-04 04:56 | ED.ABDPAIN ---
HPI - Abdominal Pain General Chief Complaint: Abdominal Pain Stated Complaint: abd pain Time Seen by Provider: 10/04/24 04:48 Source: patient and family Mode of arrival: ambulatory Limitations: no limitations History of Present Illness ED Provider: Dr. Keila Oscar HPI narrative: patient comes to the emergency room complaining of abdominal pain them periumbilical region. Patient states it started approximately 3 hours ago. Patient complaining of nausea and vomiting 2 episodes prior to arrival. Patient states that he has history of diverticulitis in 15 years ago had a perforation requiring a colostomy and then a reversal. Patient denies any URI or UTI symptoms. Denies chest pain or shortness of breath. Patient states that he feels that his intestines are rumbling . Patient states that he believes it was secondary to something he ate at work Earlier this evening Related Data Home Medications ?Medication ?Instructions ?Recorded ?Confirmed acetaminophen 500 mg tablet 1,000 mg PO DAILY PRN Pain 12/09/23 04/22/24 albuterol sulfate 90 mcg/actuation 2 inh inhalation Q4H PRN shortness 12/09/23 04/22/24 aerosol inhaler of breath or wheezing polyethylene glycol 3350 17 17 g PO BEDTIME 12/09/23 04/22/24 gram/dose oral powder (Miralax) hydrochlorothiazide 25 mg tablet 25 mg PO DAILY 01/22/24 04/22/24 famotidine 20 mg tablet 20 mg PO DAILY PRN Heartburn 04/22/24 04/22/24 semaglutide (weight loss) 0.25 0.25 mg subcut WE 04/22/24 04/22/24 mg/0.5 mL subcutaneous pen injector (Wegovy) Previous Rx's ?Medication ?Instructions ?Recorded CPAP (CPAP Machine/Device) #1 ea 01/24/24 azithromycin 250 mg tablet 250 mg PO DAILY 2 days #2 tabs 04/24/24 ipratropium 0.5 mg-albuterol 3 mg 3 ml inhalation Q4-6H PRN wheezing 06/13/24 (2.5 mg base)/3 mL nebulization #180 mL soln ipratropium 20 mcg-albuterol 100 1 puff PO Q6H #12 mL 06/13/24 mcg/actuation mist for inhalation (Combivent Respimat) umeclidinium 62.5 mcg-vilanterol 1 inh inhalation DAILY 30 days #1 06/13/24 25 mcg/actuation powdr for ea inhalation (Anoro Ellipta) furosemide 40 mg tablet 40 mg PO DAILY #90 tabs 07/13/24 theophylline 400 mg 400 mg PO DAILY #90 tabs 07/13/24 tablet,extended release 24 hr Allergies Allergy/AdvReac Type Severity Reaction Status Date / Time No Known Allergies Allergy Unknown Verified 10/04/24 04:35 Review of Systems Review of Systems Constitutional : No Weight loss, No Fever, No Chills, No Night Sweats, No Fatigue, No Malaise ENT/Mouth : No Hearing loss, No Ear Pain, No Nasal Congestion, No Sinus Pain, No Hoarseness, No sore throat, No Rhinorrhea, No Swallowing Difficulty Eyes: No Eye Pain, No Swelling, No Redness, No Foreign Body, No Discharge, No Vision Changes Cardiovascular : No Chest Pain, No SOB, No Dyspnea on Exertion, No Orthopnea, No Edema, No Palpitations Respiratory : No Cough, No Sputum, No Wheezing, No Smoke Exposure, No Dyspnea Gastrointestinal : complaining of nausea and vomiting, No Diarrhea, No Constipation, complaining of abdominal intestines rumbling like sensation, distention, periumbilical pain Genitourinary : no irregular bleeding, No Dysuria, No Urinary Frequency, No Hematuria, No Urinary Incontinence, No Urgency, No Flank Pain, No Urinary Flow Changes, No Hesitancy Musculoskeletal : No joint pain, No Myalgias, No Joint Swelling Skin : No Skin Lesions, No rash Neuro : No Weakness, No Numbness, No Paresthesias, No Loss of Consciousness, No Dizziness, No Headache Psych : No Anxiety/Panic, No Depression, No SI/HI/AH/VH, No Social Issues, Heme/Lymph: No Bruising, No Bleeding,No Lymphadenopathy Endocrine : No Polyuria, No Polydipsia, No Temperature Intolerance REPLACED BY [facility] Past Medical History Medical History KIRILL (obstructive sleep apnea) Smoker COPD (chronic obstructive pulmonary disease) HTN (hypertension) Acid reflux Diverticulitis Surgical History Hx of colonoscopy History of colostomy reversal H/O colostomy Family History Family History Mother Diabetes Arthritis Sleep apnea COPD (chronic obstructive pulmonary disease) Father Stomach cancer Diabetes Arthritis Sister Arthritis Social History Social History Household Members: Spouse Housing: Apartment Do you presently have visiting nurse or other home services: No Alcohol intake: former Comment: at bedside Patient Tobacco Use Status: Former Tobacco user Tobacco use type: Cigarette Cigarette Packs Per Day: 1 Cigarettes Per Day: 13 Years Smoked: 30 e-Cigarette/Vaping Use: Never Used Second Hand Smoke Exposure: No Advance Directives: Yes Advance Directives on File: Yes Advance Directives Date on File: 01/17/24 Do you have a plan to hurt others: No Plan service: No Current occupational status: employed Current occupation: [employer] Physical Exam ED Vital Signs: Vital Signs - 24 hr 10/04/24 04:29 10/04/24 05:27 Temperature 97.8 F 98.6 F Pulse Rate 99 102 H Respiratory Rate 24 H 20 Blood Pressure 137/76 120/79 Pulse Oximetry 94 93 Oxygen Delivery Method Room Air Room Air BMI result Body Mass Index 40.9 Const Other: Appearance: Alert. Oriented X3. No acute distress. Eyes: Pupils equal, round and reactive to light. ENT: Pharynx normal. Neck: Normal inspection. Neck supple. No lymph nodes noted. No crepitus CVS: Normal heart rate and rhythm. Pulses normal. Normal S1 and S2 Respiratory: No respiratory distress. Breath sounds normal. No Wheezing. No rales Abdomen: Soft and nontender. No rigidity, abdomen distended, patient has an umbilical hernia which was easily reduced Skin: Skin warm and dry. Normal skin color. Normal skin turgor. Extremities: No lower extremity edema. No Lacerations. No Rash Neuro: Oriented X 3. No motor deficit. No sensory deficit. Moving all extremities. No slurred speech. CN 2 through 12 grossly intact Psych: calm, cooperative, normal affect Course Course Course Narrative: all of patient's labs pending and CT scan pending Medical Decision Making Medical Decision Making MDM Narrative: My interpretation of labs: Patient's hematology at baseline, chronic leukocytosis, no chemistry abnormality, lactic acid normal. X-ray does not show any acute abnormality. Chronic fat containing hernia. Patient overall feeling much better. Patient will follow-up with his primary care physician. I discussed with the patient's signs of symptoms of an incarcerated hernia and went to return to the emergency room. Patient agrees with plan Differential Diagnosis Differential Diagnoses: The differential diagnosis associated with the presentation includes Admission/Observation Consideration of admission/observation: Escalation of care including admission/observation considered Lab Data MDM Lab Attestation statement: I reviewed the patient's lab results. 10/04/24 04:58 10/04/24 04:58 Labs: Lab Results 10/04/24 10/04/24 10/04/24 Range/Units 04:58 04:59 06:16 WBC 11.7 H (4.8-10.8) X10*3/uL RBC 5.05 (4.60-5.80) X10*6/uL Hgb 15.0 (14.0-18.0) g/dl Hct 44.2 (42.0-52.0) % MCV 87.5 (80.0-98.0) fL MCH 29.7 (27.0-33.0) pg MCHC 33.9 (31.0-36.0) g/dl RDW 15.9 (11.0-16.0) % Plt Count 368 (160-400) X10*3/uL MPV 9.4 (9.4-12.4) fL Immature Gran % (Auto) 0.8 H (0.0-0.4) % Neut % (Auto) 73.5 H (45-73) % Lymph % (Auto) 17.3 L (20-40) % [place] % (Auto) 6.4 (2-11) % Eos % (Auto) 1.7 (0-4) % Baso % (Auto) 0.3 (0-2) % Lymph # (Auto) 2.0 (1.2-4.9) X10*3/uL [place] # (Auto) 0.8 (0.1-1.2) X10*3/uL Eos # (Auto) 0.2 (0.0-0.4) X10*3/uL Baso # (Auto) 0.0 (0.0-0.2) X10*3/uL Abs Immat Gran (auto) 0.09 H (0.00-0.03) X10*3/uL Absolute Neuts (auto) 8.6 H (2.0-8.3) x10*3/uL Absolute Nucleated RBC 0.000 (0.0-0.012) X10*3/uL Nucleated RBC % (auto) 0.0 (0.0-0.2) /100WBC Sodium 143 (135-145) mmol/L Potassium 3.9 (3.3-5.1) mmol/L Chloride 104 (96-108) mmol/L Carbon Dioxide 29 (22-29) mmol/L Anion Gap 14 (12-20) BUN 14 (9-16) mg/dL Creatinine 0.85 (0.5-1.4) mg/dL Estim Creat Clear Calc 133.3 Estimated GFR > 60 Random Glucose 123 H (60-115) mg/dL Lactic Acid 1.4 (0.5-2.0) mmol/L Calcium 9.2 D (8.4-10.2) mg/dL Total Bilirubin 0.2 (0.0-1.0) mg/dL Direct Bilirubin < 0.2 (0.0-0.5) mg/dL AST 18 (5-37) U/L ALT 18 (0-40) U/L Alkaline Phosphatase 111 (39-117) U/L Total Protein 7.7 (6.5-8.0) g/dL Albumin 3.5 (3.5-5.0) g/dL Lipase 14 (8-78) U/L Urine Color Yellow Urine Appearance Clear Urine pH 5.5 (5.0-9.0) Ur Specific [place] >= 1.030 H (1.005-1.025) Urine Protein Trace (Neg-Trace) mg/dL Urine Glucose (UA) Negative (Negative) mg/dL Urine Ketones Negative (Negative) mg/dL Urine Blood Negative (Negative) Urine Nitrite Negative (Negative) Ur Leukocyte Esterase Negative (Negative) Independent Interpretation I performed an independent interpretation of an: CT Scan Radiology Impression Discussion of test interpretation with radiology: I have reviewed the radiologist's reading. Radiologist Impression: The gallbladder and solid organs are within normal limits. No renal stones. There are postoperative changes in the sigmoid colon. There may be a small solitary diverticulum in the descending colon. There is otherwise no significant diverticulosis. There is no evidence of diverticulitis. The GI tract is otherwise unremarkable. There is a small umbilical hernia containing fat only. There is a small ventral hernia at the level of the transverse colon containing fat only. There are some mild associated inflammatory changes. Pelvic contents unremarkable. Normal appendix. No acute fracture. IMPRESSION: 1. Postoperative changes sigmoid colon. No evidence of diverticulitis. 2. Small ventral hernia at the level of the transverse colon containing fat only. There are minor associated inflammatory changes. 3. Small umbilical hernia containing fat only. Medications Administered Discontinued Medications Generic Name Dose Route Start Last Admin Trade Name Freq PRN Reason Stop Dose Admin Iohexol 85 ml 10/04/24 05:35 10/04/24 05:35 Iohexol 350 Mg/Ml 100 Ml Infus..Btl IV 10/04/24 05:36 85 ml ONCE ONE Administration Ketorolac Tromethamine 15 mg 10/04/24 04:55 10/04/24 05:13 Ketorolac Tromethamine 15 Mg/Ml Vial IVPUSH 10/04/24 04:56 15 mg ONCE ONE Administration Ondansetron HCl 4 mg 10/04/24 04:55 10/04/24 05:13 Ondansetron Hcl 4 Mg/2 Ml Vial IVPUSH 10/04/24 04:56 4 mg ONCE ONE Administration Discharge Plan Discharge Clinical Impression: Abdominal pain Patient Disposition: Home, Self-Care Instructions: Abdominal Pain (ED) Additional Instructions: Please follow-up with your primary care physician tomorrow. If you have any worsening or new symptoms, please return to the emergency room or call 911 Prescriptions: No Action theophylline 400 mg tablet extended release 24 hr 400 mg PO DAILY Qty: 90 2RF furosemide 40 mg tablet 40 mg PO DAILY Qty: 90 4RF hydrochlorothiazide 25 mg tablet 25 mg PO DAILY (DME) CPAP Machine/Device Device See Rx Instructions .Route Qty: 1 0RF Rx Instructions: As directed. Auto cpap 5-20. with all supplies Length of need lifetime acetaminophen 500 mg Tablet 1,000 mg PO DAILY PRN (Reason: Pain) polyethylene glycol 3350 [Miralax] 17 gram/dose Powder 17 g PO BEDTIME albuterol sulfate 90 mcg/actuation HFA aerosol inhaler 2 inh inhalation Q4H PRN (Reason: shortness of breath or wheezing) Wegovy 0.25 mg/0.5 mL pen injector 0.25 mg subcut WE famotidine 20 mg tablet 20 mg PO DAILY PRN (Reason: Heartburn) azithromycin 250 mg tablet 250 mg PO DAILY 2 Days Qty: 2 0RF Rx Instructions: next dose 04/25/24 ipratropium-albuterol 0.5 mg-3 mg(2.5 mg base)/3 mL solution for nebulization 3 ml inhalation Q4-6H PRN (Reason: wheezing) Qty: 180 6RF Anoro Ellipta 62.5-25 mcg/actuation blister with device 1 inh inhalation DAILY 30 Days Qty: 1 6RF Combivent Respimat 20-100 mcg/actuation mist 1 puff PO Q6H Qty: 12 6RF Print Language: [place]
--- NOTE | 2024-10-04 04:57 | ECG_ITS ---
Test Reason : ABD PAIN Blood Pressure : */* mmHG Vent. Rate : 103 BPM Atrial Rate : 103 BPM P-R Int : 126 ms QRS Dur : 80 ms QT Int : 356 ms P-R-T Axes : 54 11 48 degrees QTcB Int : 466 ms Sinus tachycardia Inferior infarct (cited on or before 03-Mar-2024) Abnormal ECG When compared with ECG of 22-Apr-2024 07:44, No significant change was found Referred By: Keila Oscar Electronically Signed By: RANJAN WANG
[2024-10-04 05:03] LABS: Basophils Percent Auto 0.3 % (0-2); Eosinophils Absolute Auto 0.2 X10*3/uL (0.0-0.4); Eosinophils Percent Auto 1.7 % (0-4); Hematocrit 44.2 % (42.0-52.0); Imm Gran Abs Auto 0.09 X10*3/uL (0.00-0.03); Imm Gran Pct Auto 0.8 % (0.0-0.4); Lymphocytes Percent Auto 17.3 % (20-40); MANUAL DIFF FLAG NO; Mean Corpuscular HGB Conc 33.9 g/dl (31.0-36.0); Mean Corpuscular Hemoglobin 29.7 pg (27.0-33.0); Mean Corpuscular Volume 87.5 fL (80.0-98.0); Mean Platelet Volume 9.4 fL (9.4-12.4); Monocytes Absolute Auto 0.8 X10*3/uL (0.1-1.2); Monocytes Percent Auto 6.4 % (2-11); Neutrophils Absolute Auto 8.6 x10*3/uL (2.0-8.3); Neutrophils Percent Auto 73.5 % (45-73); Platelet Count 368 X10*3/uL (160-400); Red Blood Count 5.05 X10*6/uL (4.60-5.80); Red Cell Distribution Width 15.9 % (11.0-16.0); White Blood Count 11.7 X10*3/uL (4.8-10.8)
[2024-10-04] MEDS: ondansetron HCL 4 MG/2 ML VIAL IVPUSH (05:13)
[2024-10-04] MEDS: Ketorolac Tromethamine 15 MG/ML VIAL IVPUSH (05:13)
[2024-10-04 05:18] LABS: Lactic Acid 1.4 mmol/L (0.5-2.0)
[2024-10-04 05:21] LABS: Alanine Aminotransferase 18 U/L (0-40); Albumin Level 3.5 g/dL (3.5-5.0); Anion Gap 14 (12-20); Aspartate Amino Transferase 18 U/L (5-37); Bilirubin Direct < 0.2 mg/dL (0.0-0.5); Bilirubin Total 0.2 mg/dL (0.0-1.0); Blood Urea Nitrogen 14 mg/dL (9-16); Calcium 9.2 mg/dL (8.4-10.2); Carbon Dioxide 29 mmol/L (22-29); Chloride 104 mmol/L (96-108); Creatinine Clr Calc Pharmacy 133.3; Estimated Glomerular Filt Rate > 60; Glucose Random 123 mg/dL (60-115); Lipase 14 U/L (8-78); Potassium 3.9 mmol/L (3.3-5.1); Sodium 143 mmol/L (135-145); Total Protein 7.7 g/dL (6.5-8.0)
[2024-10-04 05:27] VITALS: BP 120/79; PULSE 102; RESP 20; TEMP 37; O2SAT 93
[2024-10-04 05:35] LABS: Alkaline Phosphatase 111 U/L (39-117)
[2024-10-04] MEDS: iohexoL 350 MG/ML 100 ML INFUS..BTL 85 ML IV (05:35)
--- NOTE | 2024-10-04 06:18 | MHC.EDTECH ---
Patient urine sample collected and sent to lab .
[2024-10-04 06:25] LABS: Appearance Urine Clear; Color Urine Yellow; Glucose Urine UA Negative (Negative); Leukocyte Esterase Urine Negative (Negative); Nitrite Urine Negative (Negative); PH 5.5 (5.0-9.0); Specific Gravity - Urine >= 1.030 (1.005-1.025); Urine Blood Negative (Negative); Urine Ketones Negative (Negative); Urine Protein Trace mg/dL (Neg-Trace)
[2024-10-04 07:49] VITALS: BP 138/87; PULSE 99; RESP 20; TEMP 36.4; O2SAT 93
== END 2024-10-04 07:51 | disposition home or self-care (01) ==
PROVIDERS: Emergency Provider Emergency Medicine; PCP Family Medicine
DX: R10.33 Periumbilical pain (principal); R11.2 Nausea with vomiting, unspecified; R00.0 Tachycardia, unspecified; R10.2 Pelvic and perineal pain; Z87.891 Personal history of nicotine dependence; Z79.899 Other long term (current) drug therapy
CPT/HCPCS: 36415; 74177; 80053; 81003; 82248; 83605; 83690; 85025; 93005; 96374; 96375; 99284; 99285; J1885; J2405; Q9967

== ENCOUNTER → 2024-10-04 04:53 | Outpatient (BNV) | payer OTHER, SELFPAY | PROVIDERS: Emergency Provider Emergency Medicine; PCP Family Medicine; Visit Provider Radiology Diagnostic Radiology | DX: K42.9 Umbilical hernia without obstruction or gangrene (principal); K43.9 Ventral hernia without obstruction or gangrene; R10.9 Unspecified abdominal pain | CPT/HCPCS: 74177 ==

== ENCOUNTER → 2024-10-04 04:57 | Outpatient (BNV) | payer OTHER, SELFPAY | PROVIDERS: Emergency Provider Emergency Medicine; PCP Family Medicine; Visit Provider Internal Medicine | DX: R00.0 Tachycardia, unspecified (principal) | CPT/HCPCS: 93010 ==

== ENCOUNTER 2024-11-21 07:46 | Inpatient (IN) | payer OTHER, SELFPAY ==
[2024-11-21] VITALS (12 sets, daily range): BP systolic 136–155; BP diastolic 57–96; PULSE 68–98; RESP 16–22; TEMP 36.4–36.9; O2SAT 77–100; BMI 43.0; BMI 44.8
--- NOTE | 2024-11-21 | ECG_ITS ---
Test Reason : cp sob Blood Pressure : */* mmHG Vent. Rate : 79 BPM Atrial Rate : 79 BPM P-R Int : 126 ms QRS Dur : 84 ms QT Int : 370 ms P-R-T Axes : 54 -5 81 degrees QTcB Int : 424 ms Normal sinus rhythm Nonspecific T wave abnormality Abnormal ECG When compared with ECG of 04-Oct-2024 05:24, Criteria for Inferior infarct are no longer Present Nonspecific T wave abnormality now evident in Lateral leads Referred By: Generic ED Physician Electronically Signed By: Jaron Haynes
--- NOTE | ~2024-11-21 | XR_ITS ---
EXAMINATION: XR CHEST CLINICAL INFORMATION: SOB, wheezing, hypoxia COMPARISON: April 22, 2024. TECHNIQUE: Frontal view of the chest was obtained. FINDINGS: Patchy opacities in the perihilar regions and the lower hemithoraces. Indistinct margins in the inferior aspect of the cardiomediastinal silhouette. No pneumothorax. No gross pleural effusion. Cardiomediastinal silhouette size is prominent. Unable to evaluate the axial skeleton due to patient's body habitus. XR/XR chest 1V IMPRESSION: Pulmonary edema and cardiac megaly versus pericardial effusion. Electronically signed by: Ted Sullivan MD 11/21/2024 09:37 AM EDT
--- NOTE | 2024-11-21 08:05 | ED_ITS ---
HPI - SOB/Dyspnea General Chief Complaint: Dyspnea Stated Complaint: SOB Time Seen by Provider: 11/21/24 08:05 Source: patient, RN notes reviewed and old records reviewed Mode of arrival: ambulatory Limitations: no limitations History of Present Illness ED Provider: Terrell Ibarra PA-C HPI Narrative: 59 yo male with history of COPD with chronic hypoxic hypercarbic respiratory failure on 2L NC at baseline, KIRILL noncompliant with BiPAP, morbid obesity, 30+ pack year smoking history (quit last year) who presents to the ER for evaluation of SOB that started last night and has gotten progressively worse. He reports associated chest congestion, nasal congestion, chest tightness and ORTEGA. He took 40 mg PO prednisone this morning with no improvement in his symptoms. He has been unable to wear his BiPAP at night due to nasal congestion. His partner thinks his CO2 is up because he has been shakey, talking in his sleep, confused at times. No fevers, chills, N/V/D or abdominal pain. No known sick contacts. He is coughing up clear phlegm, more than usual. MD elicited complaint: shortness of breath and cough Pertinent past history: COPD Onset (ago): day(s) (1) Timing: progressively worsening Severity: similar to previous episodes Exacerbating factors: exertion and coughing Relieving factors: oxygen, rest and upright position Known history of: COPD Associated symptoms: chest pain, cough, wheezing, sputum production and chest congestion Treatment prior to arrival: oxygen Related Data Home oxygen amount: 2 liters Home Medications ?Medication ?Instructions ?Recorded ?Confirmed acetaminophen 500 mg tablet 1,000 mg PO DAILY PRN Pain 12/09/23 04/22/24 albuterol sulfate 90 mcg/actuation 2 inh inhalation Q4H PRN shortness 12/09/23 04/22/24 aerosol inhaler of breath or wheezing polyethylene glycol 3350 17 17 g PO BEDTIME 12/09/23 04/22/24 gram/dose oral powder (Miralax) hydrochlorothiazide 25 mg tablet 25 mg PO DAILY 01/22/24 04/22/24 famotidine 20 mg tablet 20 mg PO DAILY PRN Heartburn 04/22/24 04/22/24 semaglutide (weight loss) 0.25 0.25 mg subcut WE 04/22/24 04/22/24 mg/0.5 mL subcutaneous pen injector (Wegovy) Previous Rx's ?Medication ?Instructions ?Recorded CPAP (CPAP Machine/Device) #1 ea 01/24/24 azithromycin 250 mg tablet 250 mg PO DAILY 2 days #2 tabs 04/24/24 ipratropium 20 mcg-albuterol 100 1 puff PO Q6H #12 mL 06/13/24 mcg/actuation mist for inhalation (Combivent Respimat) umeclidinium 62.5 mcg-vilanterol 1 inh inhalation DAILY 30 days #1 06/13/24 25 mcg/actuation powdr for ea inhalation (Anoro Ellipta) furosemide 40 mg tablet 40 mg PO DAILY #90 tabs 07/13/24 theophylline 400 mg 400 mg PO DAILY #90 tabs 07/13/24 tablet,extended release 24 hr ipratropium 0.5 mg-albuterol 3 mg 3 ml inhalation Q4-6H PRN wheezing 10/23/24 (2.5 mg base)/3 mL nebulization #180 mL soln Allergies Allergy/AdvReac Type Severity Reaction Status Date / Time No Known Allergies Allergy Unknown Verified 11/21/24 07:52 Review of Systems 2 Review of Systems: Yes all other systems are reviewed and are negative [facility] Past Medical History Medical History KIRILL (obstructive sleep apnea) Smoker COPD (chronic obstructive pulmonary disease) HTN (hypertension) Acid reflux Diverticulitis Surgical History Hx of colonoscopy History of colostomy reversal H/O colostomy Family History Family History Mother Diabetes Arthritis Sleep apnea COPD (chronic obstructive pulmonary disease) Father Stomach cancer Diabetes Arthritis Sister Arthritis Social History Social History Household Members: Spouse Housing: Apartment Do you presently have visiting nurse or other home services: No Alcohol intake: former Comment: at bedside Patient Tobacco Use Status: Former Tobacco user Tobacco use type: Cigarette Cigarette Packs Per Day: 1 Cigarettes Per Day: 13 Years Smoked: 30 Smoked in Last 30 Days: No e-Cigarette/Vaping Use: Never Used Second Hand Smoke Exposure: No Use of substances other than those prescribed or required for medical reasons: No Advance Directives: Yes Advance Directives on File: Yes Advance Directives Date on File: 01/17/24 service: No Current occupational status: employed Current occupation: [employer] Physical Exam 2 Vital Signs: Vital Signs: Last Vital Signs Temp 97.9 F 11/21/24 12:00 Pulse 75 11/21/24 12:00 Resp 22 H 11/21/24 12:00 BP 150/93 H 11/21/24 12:00 Pulse Ox 92 11/21/24 12:00 O2 Del Method BiPAP 11/21/24 12:00 FiO2 30 11/21/24 09:15 BMI result Body Mass Index 43.0 Appearance: Alert. Oriented X3. Mild respiratory distress with audible wheezing. Head: normocephalic, atraumatic. Eyes: Pupils equal, round and reactive to light. ENT: Pharynx normal. Moist mucus membranes Neck: Normal inspection. Neck supple. CVS: Normal heart rate and rhythm. Pulses normal. Respiratory: Mild respiratory distress with expiratory wheezing, accessory muscle use, RR low 20s. Breath sounds coarse with insp/exp wheezing throughout in all lung joseph. Abdomen: Rotund, softly distended with reducible umbilical hernia, well healed surgical scars, nontender. +BS x4 Skin: Skin warm and dry. Normal skin color. Normal skin turgor. No rashes. Extremities: Trace nonpitting lower extremity edema. No joint swelling. Neuro/psych: Oriented X 3. No motor deficit. No sensory deficit. CN II-XII intact. Normal speech and cognition. Medications Administered Discontinued Medications Generic Name Dose Route Start Last Admin Trade Name Orquidea PRN Reason Stop Dose Admin Ceftriaxone Sodium 1 gm 11/21/24 08:20 11/21/24 08:41 Ceftriaxone Sodium 1 Gm Vial IVPUSH 11/21/24 08:21 1 gm ONCE ONE Administration Albuterol Sulfate 2.5 mg/ 0 mg 11/21/24 08:45 11/21/24 08:50 Albuterol/Ipratropium 3 ml INHALE 11/21/24 08:46 5 dose ONCE ONE Administration Azithromycin 500 mg/ Sodium 250 mls @ 125 mls/hr 11/21/24 08:20 11/21/24 11:21 Chloride IV 11/21/24 10:19 Infused ONCE ONE Infusion Sodium Chloride 500 mls @ 500 mls/hr 11/21/24 09:15 11/21/24 11:22 Ns IV 11/21/24 10:14 Infused .Q1H MILES Infusion Methylprednisolone Sodium Succinate 60 mg 11/21/24 08:19 11/21/24 08:38 Methylprednisolone Sod Succ 125 Mg/2 Ml Vial IVPUSH 11/21/24 08:20 60 mg ONCE ONE Administration Medical Decision Making Medical Decision Making MDM Narrative: 59 yo male with history of COPD with chronic hypoxic hypercarbic respiratory failure on 2L NC at baseline, KIRILL noncompliant with BiPAP, morbid obesity, 30+ pack year smoking history (quit last year) who presents to the ER for evaluation of SOB that started last night and has gotten progressively worse. On arrival SpO2 90% on his baseline O2. Mild tachypnea and increased WOB w/ diffuse wheezing. ED bronchodilator protocol ordered along with IV solumedrol 60 mg and empiric abx for COPD exacerbation, possible CAP. He may require rescue BiPAP for acute on chronic CO2 retention. VBG and labs pending. 9:15 - VBG with acute on chronic respiratory acidosis 7.23/95/34 - placed on rescue BiPAP 18/6 with 30% FiO2. tolerating well. no leukocytosis, procal low, no fever. low suspicion for bacterial infection 10:15 - outpatient notes reviewed - pt required elevated pressures on BiPAP per his sleep study - on at home. will increase BiPAP settings to 25/8 with increase in minute ventilation and TV. will repeat VBG in an hour 11:24 - VBG improving but pH still acidotic. plan to continue on BiPAP at current settings. CXR with cardiomegaly vs pericardial effusion - no large pericardial effusion seen on POCUS, good EF estimated 13:25 - repeat VBG improved. pH 7.36/65 which seems to be his baseline. ok to come off of rescue. will need to continue nocturnal bipap. stable for admission to the floor w/ telemetry. Dr. Patel aware Differential Diagnosis Differential Diagnoses: The differential diagnosis associated with the presentation includes COPD exacerbation, CHF exacerbation, CAP, bronchitis, noncompliance w/ BiPAP, pericardial effusion, pleural effusion Admission/Observation Consideration of admission/observation: Escalation of care including admission/observation considered Consult Healthcare Provider Management of the patient was discussed with: Hospitalist Dr. Patel Lab Data [facility] Lab Attestation statement: I reviewed the patient's lab results. as above 11/21/24 08:06 11/21/24 08:06 Labs: Lab Results 11/21/24 11/21/24 11/21/24 Range/Units 08:06 08:39 08:45 WBC 10.3 (4.8-10.8) X10*3/uL RBC 4.91 (4.60-5.80) X10*6/uL Hgb 14.4 (14.0-18.0) g/dl Hct 45.4 (42.0-52.0) % MCV 92.5 (80.0-98.0) fL MCH 29.3 (27.0-33.0) pg MCHC 31.7 (31.0-36.0) g/dl RDW 16.0 (11.0-16.0) % Plt Count 324 (160-400) X10*3/uL MPV 9.2 L (9.4-12.4) fL Immature Gran % (Auto) 0.4 (0.0-0.4) % Neut % (Auto) 67.5 (45-73) % Lymph % (Auto) 20.4 (20-40) % [place] % (Auto) 5.6 (2-11) % Eos % (Auto) 5.7 H (0-4) % Baso % (Auto) 0.4 (0-2) % Lymph # (Auto) 2.1 (1.2-4.9) X10*3/uL [place] # (Auto) 0.6 (0.1-1.2) X10*3/uL Eos # (Auto) 0.6 H (0.0-0.4) X10*3/uL Baso # (Auto) 0.0 (0.0-0.2) X10*3/uL Abs Immat Gran (auto) 0.04 H (0.00-0.03) X10*3/uL Absolute Neuts (auto) 6.9 (2.0-8.3) x10*3/uL Absolute Nucleated RBC 0.000 (0.0-0.012) X10*3/uL Nucleated RBC % (auto) 0.0 (0.0-0.2) /100WBC VBG pH 7.23 L (7.32-7.43) VBG pCO2 95 mmHg VBG pO2 34 mmHg VBG HCO3 40 H (22-26) mmol/L VBG O2 Saturation 40.0 % VBG Base Excess 8.4 mmol/L Sodium 140 (135-145) mmol/L Potassium 4.9 D (3.3-5.1) mmol/L Chloride 103 (96-108) mmol/L Carbon Dioxide 30 H (22-29) mmol/L Anion Gap 12 (12-20) BUN 11 (9-16) mg/dL Creatinine 0.91 (0.5-1.4) mg/dL Estim Creat Clear Calc 124.4 Estimated GFR > 60 Random Glucose 122 H (60-115) mg/dL Lactic Acid 2.9 H* (0.5-2.0) mmol/L Lactic Acid F/U @ 2Hr (0.5-2.0) mmol/L Calcium 9.4 (8.4-10.2) mg/dL Total Bilirubin 0.2 (0.0-1.0) mg/dL AST 20 (5-37) U/L ALT 18 (0-40) U/L Alkaline Phosphatase 107 (39-117) U/L Troponin I High Sens 3.5 (<3.5-35.0) ng/L B-Natriuretic Peptide < 10 (<100) pg/mL Total Protein 7.4 (6.5-8.0) g/dL Albumin 3.6 (3.5-5.0) g/dL Procalcitonin 0.04 ng/mL Influenza Type A (PCR) NEGATIVE (Negative) Influenza Type B (PCR) NEGATIVE (Negative) RSV RNA Qual (PCR) NEGATIVE (Negative) SARS-CoV-2 RNA (RT-PCR) NEGATIVE (Negative) 11/21/24 11/21/24 11/21/24 Range/Units 10:59 11:06 13:14 WBC (4.8-10.8) X10*3/uL RBC (4.60-5.80) X10*6/uL Hgb (14.0-18.0) g/dl Hct (42.0-52.0) % MCV (80.0-98.0) fL MCH (27.0-33.0) pg MCHC (31.0-36.0) g/dl RDW (11.0-16.0) % Plt Count (160-400) X10*3/uL MPV (9.4-12.4) fL Immature Gran % (Auto) (0.0-0.4) % Neut % (Auto) (45-73) % Lymph % (Auto) (20-40) % [place] % (Auto) (2-11) % Eos % (Auto) (0-4) % Baso % (Auto) (0-2) % Lymph # (Auto) (1.2-4.9) X10*3/uL [place] # (Auto) (0.1-1.2) X10*3/uL Eos # (Auto) (0.0-0.4) X10*3/uL Baso # (Auto) (0.0-0.2) X10*3/uL Abs Immat Gran (auto) (0.00-0.03) X10*3/uL Absolute Neuts (auto) (2.0-8.3) x10*3/uL Absolute Nucleated RBC (0.0-0.012) X10*3/uL Nucleated RBC % (auto) (0.0-0.2) /100WBC VBG pH 7.28 L 7.36 (7.32-7.43) VBG pCO2 85 65 mmHg VBG pO2 34 43 mmHg VBG HCO3 40 H 37 H (22-26) mmol/L VBG O2 Saturation 44.0 66.0 % VBG Base Excess 9.6 8.8 mmol/L Sodium (135-145) mmol/L Potassium (3.3-5.1) mmol/L Chloride (96-108) mmol/L Carbon Dioxide (22-29) mmol/L Anion Gap (12-20) BUN (9-16) mg/dL Creatinine (0.5-1.4) mg/dL Estim Creat Clear Calc Estimated GFR Random Glucose (60-115) mg/dL Lactic Acid (0.5-2.0) mmol/L Lactic Acid F/U @ 2Hr 1.4 (0.5-2.0) mmol/L Calcium (8.4-10.2) mg/dL Total Bilirubin (0.0-1.0) mg/dL AST (5-37) U/L ALT (0-40) U/L Alkaline Phosphatase (39-117) U/L Troponin I High Sens (<3.5-35.0) ng/L B-Natriuretic Peptide (<100) pg/mL Total Protein (6.5-8.0) g/dL Albumin (3.5-5.0) g/dL Procalcitonin ng/mL Influenza Type A (PCR) (Negative) Influenza Type B (PCR) (Negative) RSV RNA Qual (PCR) (Negative) SARS-CoV-2 RNA (RT-PCR) (Negative) ABG Data ABG Results: Attestation ABG: I personally reviewed and interpreted this ABG as follows: Interpretation: acute on chronic respiratory acidosis Independent Interpretation I performed an independent interpretation of an: EKG and Plain X-Ray Interpretation: EKG with normal sinus rhythm, vent rate 79 bpm, no ST segment elevations or depressions, normal QRS and TN interval CXR with cardiomegaly Radiology Impression Discussion of test interpretation with radiology: I have reviewed the radiologist's reading. Radiologist Impression: XR/XR chest 1V IMPRESSION: Pulmonary edema and cardiac megaly versus pericardial effusion. Independent Historian Clinical information obtained from an independent historian. History obtained from or confirmed by: Spouse External Record Review External record reviewed: Outpatient record, Prior outpatient labs and Prior outpatient radiology Tests considered The following testing was considered but not selected: CTA considered - low suspicion for PE Prescription Management I considered prescription management with: Antibiotic and Other (bronchodilator, steroids) Chronic Conditions Patient?s care impacted by: Other (obesity, COPD) Critical Care Time Critical Care Time Critical Care Time: Yes Total Critical Care Time: 48 Attestation: I have personally provided critical care time exclusive of time spent on separately billable procedures. Time includes review of lab data, radiology results, discussion with consultants, and monitoring for potential decompensation. Intervention performed as documented. Discharge Plan Discharge Clinical Impression: Acute on chronic respiratory failure with hypoxia and hypercapnia, COPD exacerbation Patient Disposition: Admitted As Inpatient Print Language: Vietnamese
[2024-11-21 08:12] LABS: MANUAL DIFF FLAG NO
[2024-11-21 08:13] LABS: Basophils Percent Auto 0.4 % (0-2); Eosinophils Absolute Auto 0.6 X10*3/uL (0.0-0.4); Eosinophils Percent Auto 5.7 % (0-4); Hematocrit 45.4 % (42.0-52.0); Hemoglobin 14.4 g/dl (14.0-18.0); Imm Gran Abs Auto 0.04 X10*3/uL (0.00-0.03); Imm Gran Pct Auto 0.4 % (0.0-0.4); Lymphocytes Absolute Auto 2.1 X10*3/uL (1.2-4.9); Lymphocytes Percent Auto 20.4 % (20-40); Mean Corpuscular HGB Conc 31.7 g/dl (31.0-36.0); Mean Corpuscular Hemoglobin 29.3 pg (27.0-33.0); Mean Corpuscular Volume 92.5 fL (80.0-98.0); Mean Platelet Volume 9.2 fL (9.4-12.4); Monocytes Absolute Auto 0.6 X10*3/uL (0.1-1.2); Monocytes Percent Auto 5.6 % (2-11); Neutrophils Absolute Auto 6.9 x10*3/uL (2.0-8.3); Neutrophils Percent Auto 67.5 % (45-73); Platelet Count 324 X10*3/uL (160-400); Red Blood Count 4.91 X10*6/uL (4.60-5.80); White Blood Count 10.3 X10*3/uL (4.8-10.8)
[2024-11-21 08:27] LABS: Alanine Aminotransferase 18 U/L (0-40); Albumin Level 3.6 g/dL (3.5-5.0); Alkaline Phosphatase 107 U/L (39-117); Anion Gap 12 (12-20); Aspartate Amino Transferase 20 U/L (5-37); Bilirubin Total 0.2 mg/dL (0.0-1.0); Blood Urea Nitrogen 11 mg/dL (9-16); Calcium 9.4 mg/dL (8.4-10.2); Carbon Dioxide 30 mmol/L (22-29); Chloride 103 mmol/L (96-108); Creatinine Clr Calc Pharmacy 124.4; Estimated Glomerular Filt Rate > 60; Glucose Random 122 mg/dL (60-115); Potassium 4.9 mmol/L (3.3-5.1); Sodium 140 mmol/L (135-145); Total Protein 7.4 g/dL (6.5-8.0)
[2024-11-21 08:35] LABS: Troponin-I High Sensitivity 3.5 ng/L (<3.5-35.0)
[2024-11-21] MEDS: methylPREDNISolone Sod Succ 125 MG/2 ML VIAL 60 MG IVPUSH (08:38)
[2024-11-21] MEDS: cefTRIAXone sodium 1 GM VIAL IVPUSH (08:41)
[2024-11-21] MEDS: Azithromycin 500 MG in 0.9 % Sodium Chloride 250 ML 125 MG IV (08:41)
[2024-11-21 08:46] LABS: Venous Blood Gas Refer to POC result
[2024-11-21 08:50] LABS: VBG Base Excess 8.4 mmol/L; VBG HCO3 40 mmol/L (22-26); VBG pCO2 95 mmHg; VBG pH 7.23 (7.32-7.43); VBG pO2 34 mmHg
[2024-11-21] MEDS: Albuterol Sulfate 2.5 MG, Albuterol/Iprat 2.5/0.5MG 3 ML 3 ML INHALE ×2 (08:50→15:55)
[2024-11-21 09:03] LABS: Lactic Acid 2.9 mmol/L (0.5-2.0)
[2024-11-21 09:05] LABS: B Type Natriuretic Peptide < 10 pg/mL (<100)
[2024-11-21] MEDS: 0.9 % Sodium Chloride 500 ML IV (09:14)
[2024-11-21 09:19] LABS: Procalcitonin 0.04 ng/mL
[2024-11-21 10:02] LABS: Influenza A PCR NEGATIVE (Negative); Influenza B PCR NEGATIVE (Negative); Resp Syncy Virus RNA Qual PCR NEGATIVE (Negative); SARS COV2 PCR INHOUSE NEGATIVE (Negative)
--- NOTE | 2024-11-21 10:13 | PC.RT ---
attempted changes of 25/15, per provider request. unable to ventilate patient on those settings due to high leak. adjusted settings to 25/8 with good response and increased Ve
[2024-11-21 10:44] LABS: Reflex Lactate? Lactic Acid Added
[2024-11-21 11:12] LABS: Venous Blood Gas Refer to POC result
[2024-11-21 11:14] LABS: VBG Base Excess 9.6 mmol/L; VBG HCO3 40 mmol/L (22-26); VBG pCO2 85 mmHg; VBG pH 7.28 (7.32-7.43); VBG pO2 34 mmHg
[2024-11-21 11:23] LABS: ~Lactic Acid-LAB USE ONLY 1.4 mmol/L (0.5-2.0)
--- NOTE | 2024-11-21 12:15 | PC.NURSE ---
A/ox3, inspiratory/expiratory wheezing heard bilaterally, coarse lung sounds throughout, increased wob- use of accessory muscles, tachypneic 22-25, placed on BiPAP by Respiratory Therapist Maribell, settings 25/8, maintaining O2 88%-93%. Placed on site monitor, HR NSR-70s, denies cp. Abdomen distended, firm on palpation, non-tender, +bowel sounds in all four quadrants. BLE edema noted- non pitting. 20g IV placed Left ac, refer to MAR for medications given. Pt transferred into hospital bed. Able to walk to bed independently with steady gait. Call heath within reach, all needs met at this time, plan of care ongoing.
[2024-11-21 13:15] LABS: Venous Blood Gas Refer to POC result
[2024-11-21 13:18] LABS: VBG Base Excess 8.8 mmol/L; VBG HCO3 37 mmol/L (22-26); VBG pCO2 65 mmHg; VBG pH 7.36 (7.32-7.43); VBG pO2 43 mmHg
--- NOTE | 2024-11-21 14:51 | PC.NURSE ---
Pt taken off BiPAP per ALISON Caputo. Placed back on 2L NC O2- maintaining O2 sat 88%-96%. Call heath within reach, plan of care ongoing.
--- NOTE | 2024-11-21 15:17 | PHA.MEDREC ---
Addendum entered by Alexis Shields RPh 11/21/24 16:49: MED REC CHECKED BY [facility] Original Note: Pharmacy Consult ? Medication Reconciliation Pharmacy has completed the medication reconciliation. Spoke with patient and he was able to confirm his medications. Patient states he is suppose to be taking the Wegovy 0.25mg every Tuesday but states he has not had it in 3 weeks due to his insurance requiring a prior authorization.
--- NOTE | 2024-11-21 15:45 | P.HPHOSP_ITS ---
History of Present Illness Date of Service: 11/21/24 Chief Complaint: Shortness of breaths 59-year-old male with a history of COPD with chronic hypoxic hypercarbic respiratory failure on 2 L nasal cannula baseline KIRILL noncompliant with BiPAP 30+ year pack smoking history (quit last year (who developed shortness of breath that started last night had gotten progressively worse. He reports associated cough with sputum production and shortness of breath on exertion. He took 40 mg of prednisone from previous prescription without any improvement. He states he is unable to wear his BiPAP secondary to this congestion. In the emergency room initial VBG was significant for a VCO2 of 95; patient was placed on BiPAP and subsequent VBG demonstrated a decrease in his VCO2 most recent being 65. He will be admitted for treatment of his COPD exacerbation and hypercarbic respiratory failure Review of Systems 2 Review of Systems: Denies chest pain Admits to shortness of breath that is worse with exertion; admits to productive cough and nasal congestion Denies nausea vomiting diarrhea Denies fever chills [facility] Medical History KIRILL (obstructive sleep apnea) Smoker COPD (chronic obstructive pulmonary disease) HTN (hypertension) Acid reflux Diverticulitis Family History Mother Diabetes Arthritis Sleep apnea COPD (chronic obstructive pulmonary disease) Father Stomach cancer Diabetes Arthritis Sister Arthritis Surgical History Hx of colonoscopy History of colostomy reversal H/O colostomy Social History Household Members: Spouse Housing: Apartment Do you presently have visiting nurse or other home services: No Alcohol intake: former Comment: at bedside Patient Tobacco Use Status: Former Tobacco user Tobacco use type: Cigarette Cigarette Packs Per Day: 1 Cigarettes Per Day: 13 Years Smoked: 30 e-Cigarette/Vaping Use: Never Used Second Hand Smoke Exposure: No Advance Directives Date on File: 01/17/24 service: No Current occupational status: employed Current occupation: [employer] Allergies Allergy/AdvReac Type Severity Reaction Status Date / Time No Known Allergies Allergy Unknown Verified 11/21/24 07:52 Active Medications: Current Medications Acetaminophen (Acetaminophen 325 Mg Tablet) 650 mg PO Q6H PRN PRN Reason: Pain, Mild 1-3,fever,headache Calcium Carbonate (Calcium Carbonate 750 Mg Tab.Chew) 750 mg PO Q4H PRN PRN Reason: Heartburn Ceftriaxone Sodium (Ceftriaxone Sodium 1 Gm Vial) 1 gm IVPUSH Q24H [facility] Dextrose (Dextrose 50 % 25 Gm/50 Ml Syringe) 25 gm IVPUSH Q15M PRN; Protocol PRN Reason: per Hypoglycemia Standing Ord. Enoxaparin Sodium (Enoxaparin Sodium 40 Mg/0.4 Ml Syringe) 40 mg SUBCUT Q24H [facility] Furosemide (Furosemide 40 Mg Tablet) 40 mg PO DAILY [facility]; Protocol Glucose (Glucose Gel 15 Gm Gel..Gram.) 15 gm PO Q15M PRN; Protocol PRN Reason: per Hypoglycemia Standing Ord. Hydrochlorothiazide (Hydrochlorothiazide 25 Mg Tablet) 25 mg PO DAILY [facility]; Protocol Azithromycin 500 mg/ Sodium (Chloride) 250 mls @ 125 mls/hr IV Q24H [facility] Insulin Human Lispro (Insulin Lispro 100 Unit/Ml 3 Ml Vial) 0 unit SUBCUT QIDACHS [facility]; Protocol Magnesium Hydroxide (Milk Of Magnesia 30 Ml Oral.Susp) 30 ml PO DAILY PRN PRN Reason: Constipation Melatonin (Melatonin 3 Mg Tablet) 6 mg PO BEDTIME PRN PRN Reason: Insomnia Non-Formulary Medication (Umeclidinium-Vilanterol [Anoro Ellipta]) 1 each INHALE DAILY [facility] Ondansetron HCl (Ondansetron Hcl 4 Mg/2 Ml Vial) 4 mg IVPUSH Q8H PRN PRN Reason: Nausea and Vomiting Sodium Chloride (0.9 % Sodium Chloride Flush 3 Ml Syringe) 3 ml IVFLUSH QSHIFT [facility] Theophylline (Theophylline Anhydrous Er 400 Mg Tab.Er.24h) 400 mg PO DAILY@0800 [facility] Home Medications ?Medication ?Instructions ?Recorded ?Confirmed ?Last Taken ?Type acetaminophen 500 mg tablet 1,000 mg PO DAILY PRN Pain 12/09/23 11/21/24 11/20/24 History albuterol sulfate 90 mcg/actuation 2 inh inhalation Q4H PRN shortness 12/09/23 11/21/24 11/21/24 History aerosol inhaler of breath or wheezing polyethylene glycol 3350 17 17 g PO BEDTIME 12/09/23 11/21/24 11/20/24 History gram/dose oral powder (Miralax) hydrochlorothiazide 25 mg tablet 25 mg PO DAILY 01/22/24 11/21/24 11/20/24 History semaglutide (weight loss) 0.25 0.25 mg subcut TU 04/22/24 11/21/24 11/06/24 History mg/0.5 mL subcutaneous pen injector (Wegovy) calcium carbonate 550 mg-magnesium 3 - 4 tab PO Q2H PRN Heartburn 11/21/24 11/21/24 11/20/24 History hydroxide 110 mg chewable tablet prednisone 20 mg tablet 20 mg PO DAILY 11/21/24 11/21/24 11/20/24 History theophylline 400 mg 400 mg PO DAILY@0800 11/21/24 11/21/24 11/20/24 History tablet,extended release 24 hr umeclidinium 62.5 mcg-vilanterol 1 ea inhalation DAILY 11/21/24 11/21/24 11/21/24 History 25 mcg/actuation powdr for inhalation (Anoro Ellipta) Physical Exam 2 Vital Signs and Narrative: Vital Signs: Last Vital Signs Temp 98.2 F 11/21/24 13:51 Pulse 68 11/21/24 13:51 Resp 22 H 11/21/24 13:51 BP 155/85 H 11/21/24 13:51 Pulse Ox 92 11/21/24 13:51 O2 Del Method BiPAP 11/21/24 13:51 FiO2 30 11/21/24 09:15 BMI result Body Mass Index 43.0 Const: Other: Arousable. Appears comfortable on BiPAP Resp: Other: Diminished with scattered expiratory wheezes throughout Cardio: Other: No S4; positive S1-S2; no S3 murmurs rubs or gallops GI: Other: Soft nontender nondistended normoactive bowel sounds Extrem: Other: No edema bilaterally Results Labs 11/21/24 08:06 11/21/24 08:06 Labs: Laboratory Results - last 24 hr 11/21/24 11/21/24 11/21/24 08:06 08:39 08:45 MCV 92.5 MCH 29.3 MCHC 31.7 RDW 16.0 Plt Count 324 MPV 9.2 L Immature Gran % (Auto) 0.4 Neut % (Auto) 67.5 Lymph % (Auto) 20.4 Rooks % (Auto) 5.6 Eos % (Auto) 5.7 H Baso % (Auto) 0.4 Lymph # (Auto) 2.1 Rooks # (Auto) 0.6 Eos # (Auto) 0.6 H Baso # (Auto) 0.0 Abs Immat Gran (auto) 0.04 H Absolute Neuts (auto) 6.9 Absolute Nucleated RBC 0.000 Nucleated RBC % (auto) 0.0 VBG pH 7.23 L VBG pCO2 95 VBG pO2 34 VBG HCO3 40 H VBG O2 Saturation 40.0 VBG Base Excess 8.4 Anion Gap 12 Estim Creat Clear Calc 124.4 Estimated GFR > 60 Random Glucose 122 H Lactic Acid 2.9 H* Lactic Acid F/U @ 2Hr Calcium 9.4 Total Bilirubin 0.2 AST 20 ALT 18 Alkaline Phosphatase 107 B-Natriuretic Peptide < 10 Total Protein 7.4 Albumin 3.6 Procalcitonin 0.04 Influenza Type A (PCR) NEGATIVE Influenza Type B (PCR) NEGATIVE RSV RNA Qual (PCR) NEGATIVE SARS-CoV-2 RNA (RT-PCR) NEGATIVE 11/21/24 11/21/24 11/21/24 10:59 11:06 13:14 MCV MCH MCHC RDW Plt Count MPV Immature Gran % (Auto) Neut % (Auto) Lymph % (Auto) Rooks % (Auto) Eos % (Auto) Baso % (Auto) Lymph # (Auto) Rooks # (Auto) Eos # (Auto) Baso # (Auto) Abs Immat Gran (auto) Absolute Neuts (auto) Absolute Nucleated RBC Nucleated RBC % (auto) VBG pH 7.28 L 7.36 VBG pCO2 85 65 VBG pO2 34 43 VBG HCO3 40 H 37 H VBG O2 Saturation 44.0 66.0 VBG Base Excess 9.6 8.8 Anion Gap Estim Creat Clear Calc Estimated GFR Random Glucose Lactic Acid Lactic Acid F/U @ 2Hr 1.4 Calcium Total Bilirubin AST ALT Alkaline Phosphatase B-Natriuretic Peptide Total Protein Albumin Procalcitonin Influenza Type A (PCR) Influenza Type B (PCR) RSV RNA Qual (PCR) SARS-CoV-2 RNA (RT-PCR) Imaging Radiologist's Impressions: Impressions Chest X-Ray 11/21/24 09:10 IMPRESSION: Pulmonary edema and cardiac megaly versus pericardial effusion. Electronically signed by: Ted Sullivan MD 11/21/2024 09:37 AM EDT RP Assessment and Plan (1) COPD exacerbation: Status: Acute (2) Acute on chronic respiratory failure with hypoxia and hypercapnia: Status: Acute (3) Diabetes mellitus: Qualifiers: Diabetes mellitus type: type 2 Diabetes mellitus [facility] insulin use: with [facility] use Diabetes mellitus complication status: with other specified complication Qualified Code(s): E11.69 - Type 2 diabetes mellitus with other specified complication; Z79.4 - roasterman (current) use of insulin Status: Acute Plan 59-year-old male with a history of COPD with chronic hypoxic hypercarbic respiratory failure diabetes noncompliant with BiPAP presents to the emergency room with worsening shortness of breath since last night that is accompanied by productive cough and nasal congestion. He was found to have a VBG with V CO2 of 95. His CO2 responded to BiPAP. He will be admitted and treated for COPD exacerbation 1. Acute hypercarbic hypoxic respiratory failure/COPD exacerbation -continue ceftriaxone/azithromycin (2) -Solu-Medrol 60 mg IV q.6 hours -DuoNebs q.4 hours while awake -BiPAP on home settings 2.DM II -acceptable control (patient takes Wegovy every Tuesday only therapy) -lispro correctional scale -adjust as indicated (expect sugars to rise with steroids) Full Code Lovenox Patient will require at least 2 midnights going forward of inpatient stay for treatment of COPD exacerbation with IV antibiotics and hypercarbic respiratory failure with BiPAP. He will also likely need specialty consultation. This not be achieved a lesser acute setting Quality Stroke Does the patient have a stroke diagnosis?: No VTE Prior VTE?: No VTE Risk Level:: Medical - moderate - high VTE Device Contraindication: Treatment Not Indicated VTE Drug Contraindication: N/A - Med Ordered
[2024-11-21] MEDS: 0.9 % Sodium Chloride Flush 3 ML SYRINGE IVFLUSH (17:03)
[2024-11-21] MEDS: Enoxaparin Sodium 40 MG/0.4 ML SYRINGE SUBCUT (17:07)
[2024-11-21 17:08] LABS: Glucose, Whole Blood 120 mg/dL (60-115)
[2024-11-21 21:28] LABS: Glucose, Whole Blood 155 mg/dL (60-115)
[2024-11-21] MEDS: Insulin Lispro 100 UNIT/ML 3 ML VIAL SUBCUT (21:29)
[2024-11-22 03:01] VITALS: BP 139/80; PULSE 96; RESP 20; TEMP 36.3; O2SAT 98
[2024-11-22 07:40] LABS: Glucose, Whole Blood 119 mg/dL (60-115)
[2024-11-22 08:00] VITALS: BP 147/97; PULSE 85; RESP 18; TEMP 36.4; O2SAT 98
--- NOTE | 2024-11-22 08:24 | MHC.CM.PN ---
CM met with Patient at bedside. Patient lives in an apartment with his Fiance/HCP/Paz, who will transport to home at time of dc. Patient is functionally independent and he receives his home O2 and Bipap from [facility]. Home/self care is Patient's goal and CM has initiated and will follow for dc planning. PCP is Dr. Chao & [employer]/Milagros Kaiser.
[2024-11-22] MEDS: cefTRIAXone sodium 1 GM VIAL IVPUSH (08:47)
[2024-11-22] MEDS: Furosemide 40 MG TABLET PO (08:50)
[2024-11-22] MEDS: hydroCHLOROthiazide 25 MG TABLET PO (08:50)
[2024-11-22] MEDS: Acetaminophen 325 MG TABLET 650 MG PO (08:50)
[2024-11-22] MEDS: Theophylline Anhydrous ER 400 MG TAB.ER.24H PO (08:51)
[2024-11-22] MEDS: 0.9 % Sodium Chloride Flush 3 ML SYRINGE IVFLUSH ×2 (08:51→23:18)
[2024-11-22] MEDS: Azithromycin 500 MG in 0.9 % Sodium Chloride 250 ML 125 MG IV (08:51)
[2024-11-22 09:43] LABS: VBG Base Excess 10.3 mmol/L; VBG HCO3 41 mmol/L (22-26); VBG pCO2 89 mmHg; VBG pH 7.27 (7.32-7.43); VBG pO2 40 mmHg
[2024-11-22 09:44] LABS: Venous Blood Gas Refer to POC result
[2024-11-22 11:06] LABS: Glucose, Whole Blood 114 mg/dL (60-115)
[2024-11-22 11:52] VITALS: BP 134/70; PULSE 81; RESP 18; TEMP 36.8; O2SAT 97
--- NOTE | 2024-11-22 14:04 | P.PNIM_ITS ---
Subjective Subjective Date of Service: 11/22/24 Interval History: Slowly improving with antibiotics and steroids. Did not tolerate CPAP overnight Review of Systems Denies chest pain Admits to shortness of breath that is worse with exertion; admits to productive cough and nasal congestion Denies nausea vomiting diarrhea Denies fever chills Physical Exam 2 Vital Signs: Vital Signs: Last Vital Signs Temp 98.3 F 11/22/24 11:52 Pulse 81 11/22/24 11:52 Resp 18 11/22/24 11:52 BP 134/70 11/22/24 11:52 Pulse Ox 97 11/22/24 11:52 O2 Del Method Nasal Cannula 11/22/24 11:52 O2 Flow Rate 2 11/22/24 11:52 FiO2 30 11/21/24 09:15 BMI result Body Mass Index 44.8 Const: Other: Arousable. Appears comfortable on BiPAP Resp: Other: Diminished with scattered expiratory wheezes throughout Cardio: Other: No S4; positive S1-S2; no S3 murmurs rubs or gallops GI: Other: Soft nontender nondistended normoactive bowel sounds Extrem: Other: No edema bilaterally Objective Data Active Medications Acetaminophen (Acetaminophen 325 Mg Tablet) 650 mg PO Q6H PRN PRN Reason: Pain, Mild 1-3,fever,headache Last Admin: 11/22/24 08:50 Dose: 650 mg Documented By: STEPHANIE Calcium Carbonate (Calcium Carbonate 750 Mg Tab.Chew) 750 mg PO Q4H PRN PRN Reason: Heartburn Ceftriaxone Sodium (Ceftriaxone Sodium 1 Gm Vial) 1 gm IVPUSH Q24H [facility] Last Admin: 11/22/24 08:47 Dose: 1 gm Documented By: STEPHANIE Dextrose (Dextrose 50 % 25 Gm/50 Ml Syringe) 25 gm IVPUSH Q15M PRN; Protocol PRN Reason: per Hypoglycemia Standing Ord. Enoxaparin Sodium (Enoxaparin Sodium 40 Mg/0.4 Ml Syringe) 40 mg SUBCUT Q24H [facility] Last Admin: 11/21/24 17:07 Dose: 40 mg Documented By: MARIBELL Furosemide (Furosemide 40 Mg Tablet) 40 mg PO DAILY [facility]; Protocol Last Admin: 11/22/24 08:50 Dose: 40 mg Documented By: STEPHANIE Glucose (Glucose Gel 15 Gm Gel..Gram.) 15 gm PO Q15M PRN; Protocol PRN Reason: per Hypoglycemia Standing Ord. Hydrochlorothiazide (Hydrochlorothiazide 25 Mg Tablet) 25 mg PO DAILY [facility]; Protocol Last Admin: 11/22/24 08:50 Dose: 25 mg Documented By: STEPHANIE Azithromycin 500 mg/ Sodium (Chloride) 250 mls @ 125 mls/hr IV Q24H [facility] Last Admin: 11/22/24 08:51 Dose: 125 mls/hr Documented By: STEPHANIE Insulin Human Lispro (Insulin Lispro 100 Unit/Ml 3 Ml Vial) 0 unit SUBCUT QIDACHS [facility]; Protocol Last Admin: 11/22/24 11:50 Dose: Not Given Documented By: STEPHANIE Non-Admin Reason: No Insulin Coverage Magnesium Hydroxide (Milk Of Magnesia 30 Ml Oral.Susp) 30 ml PO DAILY PRN PRN Reason: Constipation Melatonin (Melatonin 3 Mg Tablet) 6 mg PO BEDTIME PRN PRN Reason: Insomnia Non-Formulary Medication (Umeclidinium-Vilanterol [Anoro Ellipta]) 1 each INHALE DAILY [facility] Ondansetron HCl (Ondansetron Hcl 4 Mg/2 Ml Vial) 4 mg IVPUSH Q8H PRN PRN Reason: Nausea and Vomiting Sodium Chloride (0.9 % Sodium Chloride Flush 3 Ml Syringe) 3 ml IVFLUSH QSHIFT [facility] Last Admin: 11/22/24 08:51 Dose: 3 ml Documented By: STEPHANIE Theophylline (Theophylline Anhydrous Er 400 Mg Tab.Er.24h) 400 mg PO DAILY@0800 [facility] Last Admin: 11/22/24 08:51 Dose: 400 mg Documented By: STEPHANIE Labs 11/21/24 08:06 11/21/24 08:06 Labs: Laboratory Results - last 24 hr 11/21/24 11/21/24 11/22/24 16:58 21:24 07:20 Hold Purple Top VBG pH VBG pCO2 VBG pO2 VBG HCO3 VBG O2 Saturation VBG Base Excess POC Glucose 120 H 155 H 119 H 11/22/24 11/22/24 11/22/24 09:33 09:38 11:00 Hold Purple Top SEE NOTE VBG pH 7.27 L VBG pCO2 89 VBG pO2 40 VBG HCO3 41 H VBG O2 Saturation 53.0 VBG Base Excess 10.3 POC Glucose 114 Microbiology Microbiology Results: Microbiology 11/21/24 08:39 Blood Culture - Preliminary Blood - Venous No growth after 24 hours. 11/21/24 08:39 Blood Culture - Preliminary Blood - Venous No growth after 24 hours. Assessment and Plan (1) Acute on chronic respiratory failure with hypoxia and hypercapnia: Status: Acute (2) COPD exacerbation: Status: Acute Plan 59-year-old male with a history of COPD with chronic hypoxic hypercarbic respiratory failure diabetes noncompliant with BiPAP presents to the emergency room with worsening shortness of breath since last night that is accompanied by productive cough and nasal congestion. He was found to have a VBG with V CO2 of 95. His CO2 responded to BiPAP. He will be admitted and treated for COPD exacerbation 1. Acute hypercarbic hypoxic respiratory failure/COPD exacerbation -continue ceftriaxone/azithromycin (3) -Solu-Medrol 60 mg IV q.6 hours -DuoNebs q.4 hours while awake -BiPAP on home settings... Retry tonight. VBG with CO2 of 85 2.DM II -acceptable control (patient takes Wegovy every Tuesday only therapy) -lispro correctional scale -adjust as indicated (expect sugars to rise with steroids) Full Code Lovenox Patient will require at least 2 midnights going forward of inpatient stay for treatment of COPD exacerbation with IV antibiotics and hypercarbic respiratory failure with BiPAP. He will also likely need specialty consultation. This not be achieved a lesser acute setting Quality Stroke Does the patient have a stroke diagnosis?: No VTE Prior VTE?: No VTE Risk Level:: Medical - moderate - high VTE Device Contraindication: Treatment Not Indicated VTE Drug Contraindication: N/A - Med Ordered
[2024-11-22 15:04] VITALS: BP 152/79; PULSE 81; RESP 16; TEMP 37; O2SAT 95
[2024-11-22 16:33] LABS: Glucose, Whole Blood 135 mg/dL (60-115)
[2024-11-22] MEDS: Enoxaparin Sodium 40 MG/0.4 ML SYRINGE SUBCUT (16:49)
[2024-11-22 19:01] VITALS: BP 140/73; PULSE 84; RESP 18; TEMP 36.8; O2SAT 95
[2024-11-22 20:08] LABS: Glucose, Whole Blood 112 mg/dL (60-115)
[2024-11-22 23:07] VITALS: BP 123/70; PULSE 89; RESP 18; TEMP 36.4; O2SAT 95
[2024-11-23] VITALS (9 sets, daily range): BP systolic 130–169; BP diastolic 60–96; PULSE 83–95; RESP 17–23; TEMP 36–37; O2SAT 93–99
[2024-11-23] MEDS: Milk of Magnesia 30 ML ORAL.SUSP PO (06:10)
[2024-11-23] MEDS: Acetaminophen 325 MG TABLET 650 MG PO (06:11)
[2024-11-23 07:19] LABS: Glucose, Whole Blood 109 mg/dL (60-115)
[2024-11-23] MEDS: Azithromycin 500 MG in 0.9 % Sodium Chloride 250 ML 125 MG IV (07:57)
[2024-11-23] MEDS: cefTRIAXone sodium 1 GM VIAL IVPUSH (07:57)
[2024-11-23] MEDS: Furosemide 40 MG TABLET PO (07:57)
[2024-11-23] MEDS: hydroCHLOROthiazide 25 MG TABLET PO (07:58)
[2024-11-23] MEDS: Theophylline Anhydrous ER 400 MG TAB.ER.24H PO (07:58)
[2024-11-23] MEDS: 0.9 % Sodium Chloride Flush 3 ML SYRINGE IVFLUSH ×3 (08:01→22:05)
[2024-11-23 11:17] LABS: Glucose, Whole Blood 93 mg/dL (60-115)
--- NOTE | 2024-11-23 14:47 | P.PNIM_ITS ---
Subjective Subjective Date of Service: 11/23/24 Interval History: Episode of desaturation overnight self-limiting. No acute issues otherwise Review of Systems Denies chest pain Admits to shortness of breath that is worse with exertion; admits to productive cough and nasal congestion Denies nausea vomiting diarrhea Denies fever chills Physical Exam 2 Vital Signs: Vital Signs: Last Vital Signs Temp 97.4 F 11/23/24 11:26 Pulse 95 11/23/24 11:26 Resp 19 11/23/24 11:26 BP 134/79 11/23/24 11:26 Pulse Ox 94 11/23/24 11:26 O2 Del Method Nasal Cannula 11/23/24 11:26 O2 Flow Rate 2 11/23/24 11:26 FiO2 45 11/23/24 03:00 BMI result Body Mass Index 44.8 Const: Other: Arousable. Appears comfortable on BiPAP Resp: Other: Diminished with scattered expiratory wheezes throughout Cardio: Other: No S4; positive S1-S2; no S3 murmurs rubs or gallops GI: Other: Soft nontender nondistended normoactive bowel sounds Extrem: Other: No edema bilaterally Objective Data Active Medications Acetaminophen (Acetaminophen 325 Mg Tablet) 650 mg PO Q6H PRN PRN Reason: Pain, Mild 1-3,fever,headache Last Admin: 11/23/24 06:11 Dose: 650 mg Documented By: RUSSELL Calcium Carbonate (Calcium Carbonate 750 Mg Tab.Chew) 750 mg PO Q4H PRN PRN Reason: Heartburn Ceftriaxone Sodium (Ceftriaxone Sodium 1 Gm Vial) 1 gm IVPUSH Q24H [facility] Last Admin: 11/23/24 07:57 Dose: 1 gm Documented By: STEPHANIE Dextrose (Dextrose 50 % 25 Gm/50 Ml Syringe) 25 gm IVPUSH Q15M PRN; Protocol PRN Reason: per Hypoglycemia Standing Ord. Enoxaparin Sodium (Enoxaparin Sodium 40 Mg/0.4 Ml Syringe) 40 mg SUBCUT Q24H [facility] Last Admin: 11/22/24 16:49 Dose: 40 mg Documented By: STEPHANIE Furosemide (Furosemide 40 Mg Tablet) 40 mg PO DAILY [facility]; Protocol Last Admin: 11/23/24 07:57 Dose: 40 mg Documented By: STEPHANIE Glucose (Glucose Gel 15 Gm Gel..Gram.) 15 gm PO Q15M PRN; Protocol PRN Reason: per Hypoglycemia Standing Ord. Hydrochlorothiazide (Hydrochlorothiazide 25 Mg Tablet) 25 mg PO DAILY [facility]; Protocol Last Admin: 11/23/24 07:58 Dose: 25 mg Documented By: STEPHANIE Azithromycin 500 mg/ Sodium (Chloride) 250 mls @ 125 mls/hr IV Q24H [facility] Last Infusion: 11/23/24 10:18 Dose: Infused Documented By: STEPHANIE Insulin Human Lispro (Insulin Lispro 100 Unit/Ml 3 Ml Vial) 0 unit SUBCUT QIDACHS [facility]; Protocol Last Admin: 11/23/24 12:06 Dose: Not Given Documented By: STEPHANIE Non-Admin Reason: No Insulin Coverage Magnesium Hydroxide (Milk Of Magnesia 30 Ml Oral.Susp) 30 ml PO DAILY PRN PRN Reason: Constipation Last Admin: 11/23/24 06:10 Dose: 30 ml Documented By: RUSSELL Melatonin (Melatonin 3 Mg Tablet) 6 mg PO BEDTIME PRN PRN Reason: Insomnia Non-Formulary Medication (Umeclidinium-Vilanterol [Anoro Ellipta]) 1 each INHALE DAILY [facility] Ondansetron HCl (Ondansetron Hcl 4 Mg/2 Ml Vial) 4 mg IVPUSH Q8H PRN PRN Reason: Nausea and Vomiting Sodium Chloride (0.9 % Sodium Chloride Flush 3 Ml Syringe) 3 ml IVFLUSH QSHIFT [facility] Last Admin: 11/23/24 08:01 Dose: 3 ml Documented By: STEPHANIE Theophylline (Theophylline Anhydrous Er 400 Mg Tab.Er.24h) 400 mg PO DAILY@0800 [facility] Last Admin: 11/23/24 07:58 Dose: 400 mg Documented By: STEPHANIE Labs 11/21/24 08:06 11/21/24 08:06 Labs: Laboratory Results - last 24 hr 11/22/24 11/22/24 11/23/24 16:26 19:58 07:15 POC Glucose 135 H 112 109 11/23/24 11:10 POC Glucose 93 Microbiology Microbiology Results: Microbiology 11/21/24 08:39 Blood Culture - Preliminary Blood - Venous No growth after 48 hours. 11/21/24 08:39 Blood Culture - Preliminary Blood - Venous No growth after 48 hours. Assessment and Plan (1) Acute on chronic respiratory failure with hypoxia and hypercapnia: Status: Acute (2) COPD exacerbation: Status: Acute Plan 59-year-old male with a history of COPD with chronic hypoxic hypercarbic respiratory failure diabetes noncompliant with BiPAP presents to the emergency room with worsening shortness of breath since last night that is accompanied by productive cough and nasal congestion. He was found to have a VBG with V CO2 of 95. His CO2 responded to BiPAP. He will be admitted and treated for COPD exacerbation 1. Acute hypercarbic hypoxic respiratory failure/COPD exacerbation -continue ceftriaxone/azithromycin (3) -Solu-Medrol 60 mg IV q.6 hours -DuoNebs q.4 hours while awake -BiPAP on home settings... 2.DM II -acceptable control (patient takes Wegovy every Tuesday only therapy) -lispro correctional scale -adjust as indicated (expect sugars to rise with steroids) Full Code Lovenox Quality Stroke Does the patient have a stroke diagnosis?: No VTE Prior VTE?: No VTE Risk Level:: Medical - moderate - high VTE Device Contraindication: Treatment Not Indicated VTE Drug Contraindication: N/A - Med Ordered
--- NOTE | 2024-11-23 15:16 | MHC.CM.PN ---
EMR reviewed and per MD rounds, pt is not medically cleared for discharge at this time.
[2024-11-23 15:38] LABS: Glucose, Whole Blood 103 mg/dL (60-115)
[2024-11-23] MEDS: methylPREDNISolone Sod Succ 125 MG/2 ML VIAL 60 MG IVPUSH ×2 (16:25→22:05)
[2024-11-23] MEDS: Enoxaparin Sodium 40 MG/0.4 ML SYRINGE SUBCUT (16:25)
[2024-11-23 21:35] LABS: Glucose, Whole Blood 167 mg/dL (60-115)
[2024-11-23] MEDS: Insulin Lispro 100 UNIT/ML 3 ML VIAL SUBCUT (22:05)
[2024-11-24] VITALS (11 sets, daily range): BP systolic 128–169; BP diastolic 75–98; PULSE 78–106; RESP 17–21; TEMP 36.4–37.2; O2SAT 94–98
[2024-11-24] MEDS: methylPREDNISolone Sod Succ 125 MG/2 ML VIAL 60 MG IVPUSH ×4 (03:30→20:33)
[2024-11-24 06:55] LABS: MANUAL DIFF FLAG NO
[2024-11-24 07:14] LABS: Basophils Percent Auto 0.3 % (0-2); Hemoglobin 15.3 g/dl (14.0-18.0); Imm Gran Abs Auto 0.12 X10*3/uL (0.00-0.03); Imm Gran Pct Auto 0.8 % (0.0-0.4); Lymphocytes Absolute Auto 1.4 X10*3/uL (1.2-4.9); Lymphocytes Percent Auto 9.9 % (20-40); Mean Corpuscular HGB Conc 31.2 g/dl (31.0-36.0); Mean Corpuscular Hemoglobin 28.9 pg (27.0-33.0); Mean Corpuscular Volume 92.6 fL (80.0-98.0); Mean Platelet Volume 9.6 fL (9.4-12.4); Monocytes Absolute Auto 0.2 X10*3/uL (0.1-1.2); Monocytes Percent Auto 1.5 % (2-11); Neutrophils Absolute Auto 12.7 x10*3/uL (2.0-8.3); Neutrophils Percent Auto 87.5 % (45-73); Platelet Count 367 X10*3/uL (160-400); Red Blood Count 5.29 X10*6/uL (4.60-5.80); Red Cell Distribution Width 15.2 % (11.0-16.0); White Blood Count 14.5 X10*3/uL (4.8-10.8)
--- NOTE | 2024-11-24 07:30 | P.CDIM_ITS ---
PROVIDER RESPONSE TEXT: To clarify, the appropriate diagnosis supported by the clinical indicators: Obesity due to excess calories QUERY TEXT: PHYSICIAN'S DOCUMENTATION REQUEST Date of Query: 11/23/2024 08:59 AM EDT Patient Name: Phil Bernardo Admit Date: 11/21/2024 Dear Jay Patel DO, A review of the medical record indicates additional documentation may be needed. Please review below and update the documentation accordingly. Clinical Indicators: Height: 5ft 10in Weight: 141.5kg BMI: 44.8 Other Clinical Notes Supporting Significance of the BMI: Nursing notes Height and Weight: Extreme obe sity class III If possible, please provide an associated diagnosis related to the abnormal BMI, such as: Morbid obesity Obesity due to excess calories Severe or Morbid Obesity With alveolar hypoventilation Severe or Morbid Obesity Without alveolar hypoventilation Other (explain) Clinically unable to determine (explain) Thank you, Mayra Parr, CCS, CDIS Use of terms such as suspected, likely, concern for, or probable (associated with a specific diagnosi s that is being evaluated, monitored, or treated as if it exists) are acceptable and can be coded in the inpatient se tting, when documented at the time of discharge. Please use your independent medical judgment in providing your response. THIS QUERY IS PART OF THE PERMANENT MEDICAL RECORD
[2024-11-24 07:33] LABS: Alanine Aminotransferase 20 U/L (0-40); Alkaline Phosphatase 102 U/L (39-117); Anion Gap 14 (12-20); Aspartate Amino Transferase 19 U/L (5-37); Bilirubin Total 0.3 mg/dL (0.0-1.0); Blood Urea Nitrogen 19 mg/dL (9-16); Carbon Dioxide 38 mmol/L (22-29); Chloride 94 mmol/L (96-108); Estimated Glomerular Filt Rate > 60; Glucose Fasting 131 mg/dL (60-99); Potassium 5.4 mmol/L (3.3-5.1); Sodium 141 mmol/L (135-145); Total Protein 8.4 g/dL (6.5-8.0)
[2024-11-24 07:35] LABS: Glucose, Whole Blood 141 mg/dL (60-115)
[2024-11-24] MEDS: cefTRIAXone sodium 1 GM VIAL IVPUSH (08:09)
[2024-11-24] MEDS: 0.9 % Sodium Chloride Flush 3 ML SYRINGE IVFLUSH ×2 (08:10→18:24)
[2024-11-24] MEDS: hydroCHLOROthiazide 25 MG TABLET PO (08:10)
[2024-11-24] MEDS: Furosemide 40 MG TABLET PO (08:10)
[2024-11-24] MEDS: Azithromycin 500 MG in 0.9 % Sodium Chloride 250 ML 125 MG IV (08:10)
[2024-11-24] MEDS: Theophylline Anhydrous ER 400 MG TAB.ER.24H PO (08:10)
[2024-11-24 11:06] LABS: Glucose, Whole Blood 174 mg/dL (60-115)
[2024-11-24] MEDS: Insulin Lispro 100 UNIT/ML 3 ML VIAL SUBCUT ×3 (12:25→20:34)
--- NOTE | 2024-11-24 12:58 | P.PNIM_ITS ---
Subjective Subjective Date of Service: 11/24/24 Interval History: Notes improvement in breathing with steroids. BiPAP tolerated with larger mask Review of Systems Denies chest pain Admits to shortness of breath that is worse with exertion; admits to productive cough and nasal congestion Denies nausea vomiting diarrhea Denies fever chills Physical Exam 2 Vital Signs: Vital Signs: Last Vital Signs Temp 97.8 F 11/24/24 11:13 Pulse 99 11/24/24 11:13 Resp 20 11/24/24 11:13 BP 152/85 H 11/24/24 11:13 Pulse Ox 94 11/24/24 11:13 O2 Del Method Nasal Cannula 11/24/24 11:13 O2 Flow Rate 2 11/24/24 11:13 FiO2 45 11/23/24 03:00 BMI result Body Mass Index 44.8 Const: Other: Arousable. Appears comfortable on BiPAP Resp: Other: Diminished with scattered expiratory wheezes throughout Cardio: Other: No S4; positive S1-S2; no S3 murmurs rubs or gallops GI: Other: Soft nontender nondistended normoactive bowel sounds Extrem: Other: No edema bilaterally Objective Data Active Medications Acetaminophen (Acetaminophen 325 Mg Tablet) 650 mg PO Q6H PRN PRN Reason: Pain, Mild 1-3,fever,headache Last Admin: 11/23/24 06:11 Dose: 650 mg Documented By: RUSSELL Calcium Carbonate (Calcium Carbonate 750 Mg Tab.Chew) 750 mg PO Q4H PRN PRN Reason: Heartburn Ceftriaxone Sodium (Ceftriaxone Sodium 1 Gm Vial) 1 gm IVPUSH Q24H [facility] Last Admin: 11/24/24 08:09 Dose: 1 gm Documented By: PHILLIP Dextrose (Dextrose 50 % 25 Gm/50 Ml Syringe) 25 gm IVPUSH Q15M PRN; Protocol PRN Reason: per Hypoglycemia Standing Ord. Enoxaparin Sodium (Enoxaparin Sodium 40 Mg/0.4 Ml Syringe) 40 mg SUBCUT Q24H [facility] Last Admin: 11/23/24 16:25 Dose: 40 mg Documented By: STEPHANIE Furosemide (Furosemide 40 Mg Tablet) 40 mg PO DAILY [facility]; Protocol Last Admin: 11/24/24 08:10 Dose: 40 mg Documented By: PHILLIP Glucose (Glucose Gel 15 Gm Gel..Gram.) 15 gm PO Q15M PRN; Protocol PRN Reason: per Hypoglycemia Standing Ord. Hydrochlorothiazide (Hydrochlorothiazide 25 Mg Tablet) 25 mg PO DAILY [facility]; Protocol Last Admin: 11/24/24 08:10 Dose: 25 mg Documented By: PHILLIP Azithromycin 500 mg/ Sodium (Chloride) 250 mls @ 125 mls/hr IV Q24H [facility] Last Infusion: 11/24/24 10:49 Dose: Infused Documented By: PHILLIP Insulin Human Lispro (Insulin Lispro 100 Unit/Ml 3 Ml Vial) 0 unit SUBCUT QIDACHS [facility]; Protocol Last Admin: 11/24/24 10:49 Dose: Not Given Documented By: PHILLIP Non-Admin Reason: No Insulin Coverage Magnesium Hydroxide (Milk Of Magnesia 30 Ml Oral.Susp) 30 ml PO DAILY PRN PRN Reason: Constipation Last Admin: 11/23/24 06:10 Dose: 30 ml Documented By: RUSSELL Melatonin (Melatonin 3 Mg Tablet) 6 mg PO BEDTIME PRN PRN Reason: Insomnia Methylprednisolone Sodium Succinate (Methylprednisolone Sod Succ 125 Mg/2 Ml Vial) 60 mg IVPUSH Q6H [facility] Last Admin: 11/24/24 03:30 Dose: 60 mg Documented By: RUSSELL Non-Formulary Medication (Umeclidinium-Vilanterol [Anoro Ellipta]) 1 each INHALE DAILY [facility] Ondansetron HCl (Ondansetron Hcl 4 Mg/2 Ml Vial) 4 mg IVPUSH Q8H PRN PRN Reason: Nausea and Vomiting Sodium Chloride (0.9 % Sodium Chloride Flush 3 Ml Syringe) 3 ml IVFLUSH QSHIFT [facility] Last Admin: 11/24/24 08:10 Dose: 3 ml Documented By: PHILLIP Theophylline (Theophylline Anhydrous Er 400 Mg Tab.Er.24h) 400 mg PO DAILY@0800 [facility] Last Admin: 11/24/24 08:10 Dose: 400 mg Documented By: PHILLIP Labs 11/24/24 06:51 11/24/24 06:51 Labs: Laboratory Results - last 24 hr 11/23/24 11/23/24 11/24/24 15:31 21:27 06:51 MCV 92.6 MCH 28.9 MCHC 31.2 RDW 15.2 Plt Count 367 MPV 9.6 Immature Gran % (Auto) 0.8 H Neut % (Auto) 87.5 H Lymph % (Auto) 9.9 L [place] % (Auto) 1.5 L Eos % (Auto) 0.0 Baso % (Auto) 0.3 Lymph # (Auto) 1.4 [place] # (Auto) 0.2 Eos # (Auto) 0.0 Baso # (Auto) 0.0 Abs Immat Gran (auto) 0.12 H Absolute Neuts (auto) 12.7 H Absolute Nucleated RBC 0.000 Nucleated RBC % (auto) 0.0 Anion Gap 14 Estim Creat Clear Calc 133.0 Estimated GFR > 60 POC Glucose 103 167 H Fasting Glucose 131 H Calcium 10.0 D Total Bilirubin 0.3 AST 19 ALT 20 Alkaline Phosphatase 102 Total Protein 8.4 H Albumin 4.0 11/24/24 11/24/24 07:31 11:03 MCV MCH MCHC RDW Plt Count MPV Immature Gran % (Auto) Neut % (Auto) Lymph % (Auto) [place] % (Auto) Eos % (Auto) Baso % (Auto) Lymph # (Auto) [place] # (Auto) Eos # (Auto) Baso # (Auto) Abs Immat Gran (auto) Absolute Neuts (auto) Absolute Nucleated RBC Nucleated RBC % (auto) Anion Gap Estim Creat Clear Calc Estimated GFR POC Glucose 141 H 174 H Fasting Glucose Calcium Total Bilirubin AST ALT Alkaline Phosphatase Total Protein Albumin Microbiology Microbiology Results: Microbiology 11/21/24 08:39 Blood Culture - Preliminary Blood - Venous No growth after 48 hours. 11/21/24 08:39 Blood Culture - Preliminary Blood - Venous No growth after 48 hours. Assessment and Plan (1) Acute on chronic respiratory failure with hypoxia and hypercapnia: Status: Acute (2) Diabetes mellitus: Status: Acute Plan 59-year-old male with a history of COPD with chronic hypoxic hypercarbic respiratory failure diabetes noncompliant with BiPAP presents to the emergency room with worsening shortness of breath since last night that is accompanied by productive cough and nasal congestion. He was found to have a VBG with V CO2 of 95. His CO2 responded to BiPAP. He will be admitted and treated for COPD exacerbation 1. Acute hypercarbic hypoxic respiratory failure/COPD exacerbation -continue ceftriaxone/azithromycin (4) -Solu-Medrol 60 mg IV q.6 hours -DuoNebs q.4 hours while awake -BiPAP on home settings... Utilizing larger mask. We will need same upon DC 2. Respiratory acidosis compensatory metabolic alkalosis -Diamox 250 b.i.d. -check VBG in a.m. -follow renals/divalents 3.DM II -acceptable control (patient takes Wegovy every Tuesday only therapy) -lispro correctional scale -adjust as indicated (expect sugars to rise with steroids) Full Code Lovenox Quality Stroke Does the patient have a stroke diagnosis?: No VTE Prior VTE?: No VTE Risk Level:: Medical - moderate - high VTE Device Contraindication: Treatment Not Indicated VTE Drug Contraindication: N/A - Med Ordered
[2024-11-24] MEDS: Albuterol/Iprat 2.5/0.5MG 3 ML AMPUL.NEB INHALE ×2 (15:23→19:40)
[2024-11-24 16:33] LABS: Glucose, Whole Blood 207 mg/dL (60-115)
[2024-11-24] MEDS: Enoxaparin Sodium 40 MG/0.4 ML SYRINGE SUBCUT (18:24)
[2024-11-24 20:33] LABS: Glucose, Whole Blood 176 mg/dL (60-115)
[2024-11-24] MEDS: acetaZOLAMIDE 250 MG TABLET PO (20:34)
[2024-11-25] VITALS (11 sets, daily range): BP systolic 123–141; BP diastolic 61–98; PULSE 80–112; RESP 17–21; TEMP 36.2–36.8; O2SAT 90–99; BMI 43.2
[2024-11-25] MEDS: methylPREDNISolone Sod Succ 125 MG/2 ML VIAL 60 MG IVPUSH (03:10)
[2024-11-25] MEDS: 0.9 % Sodium Chloride Flush 3 ML SYRINGE IVFLUSH ×3 (03:13→18:09)
[2024-11-25 07:46] LABS: Glucose, Whole Blood 121 mg/dL (60-115)
[2024-11-25] MEDS: Albuterol/Iprat 2.5/0.5MG 3 ML AMPUL.NEB INHALE ×4 (08:05→19:56)
[2024-11-25] MEDS: cefTRIAXone sodium 1 GM VIAL IVPUSH (08:25)
[2024-11-25] MEDS: hydroCHLOROthiazide 25 MG TABLET PO (08:25)
[2024-11-25] MEDS: methylPREDNISolone Sod Succ 40 MG/ML VIAL IVPUSH ×2 (08:25→19:54)
[2024-11-25] MEDS: acetaZOLAMIDE 250 MG TABLET PO ×2 (08:25→19:53)
[2024-11-25] MEDS: Theophylline Anhydrous ER 400 MG TAB.ER.24H PO (08:25)
[2024-11-25] MEDS: Azithromycin 500 MG in 0.9 % Sodium Chloride 250 ML 125 MG IV (08:40)
[2024-11-25 09:39] LABS: Venous Blood Gas Refer to POC result
[2024-11-25 09:44] LABS: VBG Base Excess 13.3 mmol/L; VBG HCO3 44 mmol/L (22-26); VBG pCO2 85 mmHg; VBG pH 7.32 (7.32-7.43); VBG pO2 33 mmHg
[2024-11-25 09:51] LABS: Anion Gap 11 (12-20); Blood Urea Nitrogen 23 mg/dL (9-16); Calcium 9.4 mg/dL (8.4-10.2); Carbon Dioxide 34 mmol/L (22-29); Chloride 96 mmol/L (96-108); Estimated Glomerular Filt Rate > 60; Glucose Random 227 mg/dL (60-115); Potassium 4.4 mmol/L (3.3-5.1); Sodium 137 mmol/L (135-145)
[2024-11-25] MEDS: Furosemide 40 MG TABLET PO (10:15)
[2024-11-25 11:15] LABS: Glucose, Whole Blood 143 mg/dL (60-115)
[2024-11-25 15:39] LABS: Glucose, Whole Blood 214 mg/dL (60-115)
[2024-11-25] MEDS: Enoxaparin Sodium 40 MG/0.4 ML SYRINGE SUBCUT (18:09)
[2024-11-25] MEDS: Insulin Lispro 100 UNIT/ML 3 ML VIAL SUBCUT (18:09)
--- NOTE | 2024-11-25 19:07 | PC.NURSE ---
Pt arrived from med-tele to room 371 via wheelchair. Alert and oriented. On 2L NC. Denies pain. Low fall risk. Call heath in reach.
[2024-11-25 20:36] LABS: Glucose, Whole Blood 144 mg/dL (60-115)
--- NOTE | 2024-11-25 20:40 | P.PNIM_ITS ---
Subjective Subjective Date of Service: 11/25/24 Interval History: Overall feeling better than yesterday Physical Exam 2 Vital Signs: Vital Signs: Last Vital Signs Temp 98.3 F 11/25/24 19:55 Pulse 105 H 11/25/24 19:57 Resp 18 11/25/24 19:57 BP 138/71 11/25/24 19:55 Pulse Ox 90 L 11/25/24 19:55 O2 Del Method Room Air 11/25/24 19:55 O2 Flow Rate 2 11/25/24 16:00 FiO2 45 11/23/24 03:00 BMI result Body Mass Index 43.2 Const: Other: General: AO X 3, no acute distress Resp: CTA bilateral CVS: S1,S2,RRR GI: +BS, NT, no distention Skin: No rash Neuro: motor grossly intact Psych: appropriate affect Objective Data Active Medications Acetaminophen (Acetaminophen 325 Mg Tablet) 650 mg PO Q6H PRN PRN Reason: Pain, Mild 1-3,fever,headache Last Admin: 11/23/24 06:11 Dose: 650 mg Documented By: RUSSELL Acetazolamide (Acetazolamide 250 Mg Tablet) 250 mg PO BID [facility] Last Admin: 11/25/24 19:53 Dose: 250 mg Documented By: CAROLYN Albuterol/Ipratropium (Albuterol/Iprat 2.5/0.5mg 3 Ml Ampul.Neb) 3 ml INHALE RQ4H WHILE AWAKE [facility] Last Admin: 11/25/24 19:56 Dose: 3 ml Documented By: ALEJANDRA Calcium Carbonate (Calcium Carbonate 750 Mg Tab.Chew) 750 mg PO Q4H PRN PRN Reason: Heartburn Ceftriaxone Sodium (Ceftriaxone Sodium 1 Gm Vial) 1 gm IVPUSH Q24H [facility] Last Admin: 11/25/24 08:25 Dose: 1 gm Documented By: PHILLIP Dextrose (Dextrose 50 % 25 Gm/50 Ml Syringe) 25 gm IVPUSH Q15M PRN; Protocol PRN Reason: per Hypoglycemia Standing Ord. Enoxaparin Sodium (Enoxaparin Sodium 40 Mg/0.4 Ml Syringe) 40 mg SUBCUT Q24H [facility] Last Admin: 11/25/24 18:09 Dose: 40 mg Documented By: PHILLIP Furosemide (Furosemide 40 Mg Tablet) 40 mg PO DAILY [facility]; Protocol Last Admin: 11/25/24 10:15 Dose: 40 mg Documented By: PHILLIP Glucose (Glucose Gel 15 Gm Gel..Gram.) 15 gm PO Q15M PRN; Protocol PRN Reason: per Hypoglycemia Standing Ord. Hydrochlorothiazide (Hydrochlorothiazide 25 Mg Tablet) 25 mg PO DAILY [facility]; Protocol Last Admin: 11/25/24 08:25 Dose: 25 mg Documented By: PHILLIP Azithromycin 500 mg/ Sodium (Chloride) 250 mls @ 125 mls/hr IV Q24H [facility] Last Infusion: 11/25/24 11:33 Dose: Infused Documented By: PHILLIP Insulin Human Lispro (Insulin Lispro 100 Unit/Ml 3 Ml Vial) 0 unit SUBCUT QIDACHS [facility]; Protocol Last Admin: 11/25/24 18:09 Dose: 4 unit Documented By: PHILLIP Magnesium Hydroxide (Milk Of Magnesia 30 Ml Oral.Susp) 30 ml PO DAILY PRN PRN Reason: Constipation Last Admin: 11/23/24 06:10 Dose: 30 ml Documented By: RUSSELL Melatonin (Melatonin 3 Mg Tablet) 6 mg PO BEDTIME PRN PRN Reason: Insomnia Methylprednisolone Sodium Succinate (Methylprednisolone Sod Succ 40 Mg/Ml Vial) 40 mg IVPUSH BID [facility] Last Admin: 11/25/24 19:54 Dose: 40 mg Documented By: CAROLYN Non-Formulary Medication (Umeclidinium-Vilanterol [Anoro Ellipta]) 1 each INHALE DAILY [facility] Ondansetron HCl (Ondansetron Hcl 4 Mg/2 Ml Vial) 4 mg IVPUSH Q8H PRN PRN Reason: Nausea and Vomiting Sodium Chloride (0.9 % Sodium Chloride Flush 3 Ml Syringe) 3 ml IVFLUSH QSHIFT [facility] Last Admin: 11/25/24 18:09 Dose: 3 ml Documented By: PHILLIP Theophylline (Theophylline Anhydrous Er 400 Mg Tab.Er.24h) 400 mg PO DAILY@0800 [facility] Last Admin: 11/25/24 08:25 Dose: 400 mg Documented By: PHILLIP Labs 11/24/24 06:51 11/25/24 09:33 Labs: Laboratory Results - last 24 hr 11/25/24 11/25/24 11/25/24 07:38 09:33 09:39 VBG pH 7.32 VBG pCO2 85 VBG pO2 33 VBG HCO3 44 H VBG O2 Saturation 38.0 VBG Base Excess 13.3 Anion Gap 11 L Estim Creat Clear Calc 122.0 Estimated GFR > 60 POC Glucose 121 H Random Glucose 227 H Calcium 9.4 11/25/24 11/25/24 11/25/24 11:09 15:33 20:32 VBG pH VBG pCO2 VBG pO2 VBG HCO3 VBG O2 Saturation VBG Base Excess Anion Gap Estim Creat Clear Calc Estimated GFR POC Glucose 143 H 214 H 144 H Random Glucose Calcium Assessment and Plan (1) Acute on chronic respiratory failure with hypoxia and hypercapnia: Status: Acute (2) Diabetes mellitus: Status: Acute Plan 59-year-old male with a history of COPD with chronic hypoxic hypercarbic respiratory failure diabetes noncompliant with BiPAP presents to the emergency room with worsening shortness of breath since last night that is accompanied by productive cough and nasal congestion. He was found to have a VBG with V CO2 of 95. His CO2 responded to BiPAP. He will be admitted and treated for COPD exacerbation 1. Acute hypercarbic hypoxic respiratory failure/COPD exacerbation -continue ceftriaxone/azithromycin (5) -Solu-Medrol 40 bid , wolff to Prednisone 40 daily tomorrow -DuoNebs q.4 hours while awake -BiPAP on home settings -continue theophyline 2. Respiratory acidosis compensatory metabolic alkalosis -Diamox 250 b.i.d. -VBG shows compensatory process -follow renals/divalents 3.DM II -acceptable control (patient takes Wegovy every Tuesday only therapy) -lispro correctional scale -adjust as indicated (expect sugars to rise with steroids) Full Code Lovenox Quality Stroke Does the patient have a stroke diagnosis?: No VTE Prior VTE?: No VTE Risk Level:: Medical - moderate - high VTE Device Contraindication: Treatment Not Indicated VTE Drug Contraindication: N/A - Med Ordered
[2024-11-26 03:30] VITALS: BP 149/90; PULSE 95; RESP 18; TEMP 36.5; O2SAT 92
[2024-11-26 07:29] LABS: Glucose, Whole Blood 106 mg/dL (60-115)
[2024-11-26 08:00] VITALS: BP 145/95; PULSE 95; RESP 20; TEMP 36.3; O2SAT 93
[2024-11-26] MEDS: Albuterol/Iprat 2.5/0.5MG 3 ML AMPUL.NEB INHALE ×2 (08:10→11:37)
[2024-11-26 08:11] VITALS: PULSE 90; RESP 20; O2SAT 92
[2024-11-26] MEDS: predniSONE 20 MG TABLET 40 MG PO (08:41)
[2024-11-26] MEDS: Furosemide 40 MG TABLET PO (08:41)
[2024-11-26] MEDS: hydroCHLOROthiazide 25 MG TABLET PO (08:41)
[2024-11-26] MEDS: acetaZOLAMIDE 250 MG TABLET PO (08:42)
[2024-11-26] MEDS: cefTRIAXone sodium 1 GM VIAL IVPUSH (08:42)
[2024-11-26] MEDS: Theophylline Anhydrous ER 400 MG TAB.ER.24H PO (08:42)
[2024-11-26] MEDS: Azithromycin 500 MG in 0.9 % Sodium Chloride 250 ML 125 MG IV (08:43)
[2024-11-26] MEDS: 0.9 % Sodium Chloride Flush 3 ML SYRINGE IVFLUSH (08:44)
[2024-11-26 09:20] LABS: ABG Base Excess 6.9 mmol/L; ABG HCO3 35 mmol/L (22-26); ABG pCO2 61 mmHg (32-45); ABG pH 7.35 (7.35-7.45); ABG pO2 60 mmHg (83-108)
--- NOTE | 2024-11-26 09:22 | P.DS_ITS ---
DS: Providers Provider Date of Service: 11/26/24 Date of admission: 11/21/24 14:55 Date of discharge: 11/26/24 Primary care physician: BETH Gunter DS: Diagnosis Discharge Diagnosis (1) Acute on chronic respiratory failure with hypoxia and hypercapnia: Status: Acute (2) Diabetes mellitus: Status: Acute DS: Summary Hospital Course Hospital Course: admission hpi Chief Complaint: Shortness of breaths 59-year-old male with a history of COPD with chronic hypoxic hypercarbic respiratory failure on 2 L nasal cannula baseline KIRILL noncompliant with BiPAP 30+ year pack smoking history (quit last year (who developed shortness of breath that started last night had gotten progressively worse. He reports associated cough with sputum production and shortness of breath on exertion. He took 40 mg of prednisone from previous prescription without any improvement. He states he is unable to wear his BiPAP secondary to this congestion. In the emergency room initial VBG was significant for a VCO2 of 95; patient was placed on BiPAP and subsequent VBG demonstrated a decrease in his VCO2 most recent being 65. He will be admitted for treatment of his COPD exacerbation and hypercarbic respiratory failure Hospital course: 59-year-old male with a history of COPD with chronic hypoxic hypercarbic respiratory failure diabetes noncompliant with BiPAP presents to the emergency room with worsening shortness of breath since last night that is accompanied by productive cough and nasal congestion. He was found to have a VBG with V CO2 of 95. His CO2 responded to BiPAP. He will was aadmitted and treated for COPD exacerbation. His management consisted of IV steroid, bronchodilators by Neb and empiric ceftriaxone and Azithromycin for 5 days, and use of BiPAP at night, continue use of BiPAP is high encouraged along with smoking cessation. He is overall feeling much better and will be transitioned to home Respiratory acidosis compensatory metabolic alkalosis -Diamox 250 b.i.d. -VBG shows compensatory process -follow renals/divalents 3.DM II--rresume home meds -acceptable control (patient takes Wegovy every Tuesday only therapy) -lispro correctional scale -adjust as indicated (expect sugars to rise with steroids) Full Code Lovenox Time Attestation Discharge Coordination Time (in mins): 40 Quality: Safe Use of Opioids Does Pt have an Active Cancer Diagnosis on the Problem List?: No Quality: Stroke Does the patient have a stroke diagnosis?: No Physical Exam Vital Signs: Vital Signs: Last Vital Signs Temp 98.3 F 11/25/24 19:55 Pulse 105 H 11/25/24 19:57 Resp 18 11/25/24 19:57 BP 138/71 11/25/24 19:55 Pulse Ox 90 L 11/25/24 19:55 O2 Del Method Room Air 11/25/24 19:55 O2 Flow Rate 2 11/25/24 16:00 FiO2 45 11/23/24 03:00 BMI result Body Mass Index 43.2 DS: Data Data Completed and Pending Completed studies during hospitalization [Text1]: Procedures Assistance with Respiratory Ventilation, Less than 24 Consecutive Hours, Continuous Positive Airway Pressure (02/13/24) Labs on day of discharge: Laboratory Results - last 24 hr 11/25/24 11/25/24 11/25/24 07:38 09:33 09:39 VBG pH 7.32 VBG pCO2 85 VBG pO2 33 VBG HCO3 44 H VBG O2 Saturation 38.0 VBG Base Excess 13.3 Sodium 137 Potassium 4.4 Chloride 96 Carbon Dioxide 34 H Anion Gap 11 L BUN 23 H Creatinine 0.93 Estim Creat Clear Calc 122.0 Estimated GFR > 60 POC Glucose 121 H Random Glucose 227 H Calcium 9.4 11/25/24 11/25/24 11/25/24 11:09 15:33 20:32 VBG pH VBG pCO2 VBG pO2 VBG HCO3 VBG O2 Saturation VBG Base Excess Sodium Potassium Chloride Carbon Dioxide Anion Gap BUN Creatinine Estim Creat Clear Calc Estimated GFR POC Glucose 143 H 214 H 144 H Random Glucose Calcium Preliminary micro results at discharge 11/21/24 08:39 Blood Culture - Preliminary Blood - Venous No growth after 48 hours. 11/21/24 08:39 Blood Culture - Preliminary Blood - Venous No growth after 48 hours. Discharge Plan Discharge Anticipated Discharge Date/Time: 11/26/24 09:18 Patient Disposition: Home, Self-Care Discharge Diagnosis: Acute on chronic resp Referrals: Milagros Kaiser FNP [Primary Care Provider] - 1 Week Discharge Medications: New prednisone 10 mg tablet See Taper PO DIRECTED Qty: 12 0RF Taper: Prednisone 30 mg daily for 2 Days and 0 Hour 20 mg daily for 2 Days and 0 Hour 10 mg daily for 2 Days and 0 Hour Rx Instructions: see taper instructions Continued furosemide 40 mg tablet 40 mg PO DAILY Qty: 90 4RF ipratropium-albuterol 0.5 mg-3 mg(2.5 mg base)/3 mL solution for nebulization 3 ml inhalation Q4-6H PRN (Reason: wheezing) Qty: 180 0RF hydrochlorothiazide 25 mg tablet 25 mg PO DAILY (DME) CPAP Machine/Device Device See Rx Instructions .Route Qty: 1 0RF Rx Instructions: As directed. Auto cpap 5-20. with all supplies Length of need lifetime acetaminophen 500 mg Tablet 1,000 mg PO DAILY PRN (Reason: Pain) polyethylene glycol 3350 [Miralax] 17 gram/dose Powder 17 g PO BEDTIME albuterol sulfate 90 mcg/actuation HFA aerosol inhaler 2 inh inhalation Q4H PRN (Reason: shortness of breath or wheezing) Wegovy 0.25 mg/0.5 mL pen injector 0.25 mg subcut TU prednisone 20 mg tablet 20 mg PO DAILY Anoro Ellipta 62.5-25 mcg/actuation blister with device 1 ea INHALATION DAILY Rolaids 550-110 mg Tablet,Chewable 3 - 4 tab PO Q2H PRN (Reason: Heartburn) theophylline 400 mg tablet extended release 24 hr 400 mg PO DAILY@0800 Discharge Orders: Discharge Order (Routine); Ordered 11/26/24 Ordered By: James Florian Diet: Advance to usual diet Activity on Discharge: As tolerated Stand Alone Forms: Patient Portal Discharge page Print Language: Portuguese Care Plan Goals: recovery from copd exacerbation and acute respiratory failure Health Concerns: copd, non compliance with bipap, diabetes Plan of Treatment: take prednisone as directed no smoking Assessment: see above
[2024-11-26 09:27] VITALS: O2SAT 92
--- NOTE | 2024-11-26 09:57 | MHC.CM.PN ---
PT TO DC HOME TODAY WITH NO SERVICES VIA PRIVATE TRANSPORT
[2024-11-26 11:28] LABS: Glucose, Whole Blood 91 mg/dL (60-115)
[2024-11-26 11:38] VITALS: BP 158/93; PULSE 100; RESP 19; TEMP 36.6; O2SAT 90
[2024-11-26 11:39] VITALS: PULSE 81; RESP 18; O2SAT 97
== END 2024-11-26 12:00 | disposition home or self-care (01) | DRG 190 ==
LOC: HO.ED 09:35 → HO.EDOVER 15:02 → HO.IMC 20:00 → HO.S3 11-25 17:24
PROVIDERS: Physician Assistant; Admitting Provider Hospitalist; Emergency Provider Emergency Medicine; PCP Family Medicine; Visit Provider Internal Medicine
DX: J44.1 Chronic obstructive pulmonary disease with (acute) exacerbation (principal); J96.21 Acute and chronic respiratory failure with hypoxia; J96.22 Acute and chronic respiratory failure with hypercapnia; Z68.41 Body mass index [BMI] 40.0-44.9, adult; E87.4 Mixed disorder of acid-base balance; E66.09 Other obesity due to excess calories; G47.33 Obstructive sleep apnea (adult) (pediatric); E11.9 Type 2 diabetes mellitus without complications; Z20.822 Contact with and (suspected) exposure to COVID-19; Z91.199 Patient's noncompliance with other medical treatment and regimen due to unspecified reason; Z99.81 Dependence on supplemental oxygen; Z87.891 Personal history of nicotine dependence; Z79.52 Long term (current) use of systemic steroids; Z79.85 Long-term (current) use of injectable non-insulin antidiabetic drugs; Z79.899 Other long term (current) drug therapy
CPT/HCPCS: 0241U; 36415; 36600; 71045; 80048; 80053; 82803; 82947; 83605; 83880; 84145; 84484; 85025; 87040; 93005; 94640; 94660; 99285; J0456; J0696; J1650; J2919

== ENCOUNTER → 2024-11-21 08:01 | Outpatient (BNV) | payer OTHER, SELFPAY | PROVIDERS: Admitting Provider Hospitalist; Emergency Provider Emergency Medicine; PCP Family Medicine; Visit Provider Internal Medicine Cardiovascular Disease | DX: R94.31 Abnormal electrocardiogram [ECG] [EKG] (principal); R07.9 Chest pain, unspecified; R06.02 Shortness of breath | CPT/HCPCS: 93010 ==

== ENCOUNTER → 2024-11-21 08:27 | Outpatient (BNV) | payer OTHER, SELFPAY | PROVIDERS: Emergency Provider Emergency Medicine; PCP Family Medicine; Visit Provider Radiology Diagnostic Radiology | DX: J81.1 Chronic pulmonary edema (principal) | CPT/HCPCS: 71045 ==

== ENCOUNTER → 2024-11-21 14:55 | Outpatient (BNV) | payer OTHER, SELFPAY | PROVIDERS: Admitting Provider Hospitalist; Emergency Provider Emergency Medicine; PCP Family Medicine; Visit Provider Hospitalist | DX: J96.21 Acute and chronic respiratory failure with hypoxia (principal); J96.22 Acute and chronic respiratory failure with hypercapnia; E11.69 Type 2 diabetes mellitus with other specified complication; Z79.4 Long term (current) use of insulin | CPT/HCPCS: 99223; 99232; 99239 ==

== ENCOUNTER 2024-12-05 10:34 | Outpatient (REF) | payer OTHER, SELFPAY ==
--- NOTE | ~2024-12-05 | XR_ITS ---
CLINICAL HISTORY: RIGHT HIP PAIN --- Additional Notes or Special Instructions: WO Two views of right hip Comparison: None Findings: No acute fracture or dislocation. No significant arthritic change. The soft tissues are unremarkable. IMPRESSION: No acute findings. This document has been electronically signed by: Jatinder Guardado MD on 12/05/2024 15:56:33
== END 2024-12-05 10:35 | disposition home or self-care (01) ==
LOC: HO.XRAY 10:34
PROVIDERS: PCP Internal Medicine Medical Oncology; Visit Provider Internal Medicine Medical Oncology
DX: M25.551 Pain in right hip (principal)
CPT/HCPCS: 73502

== ENCOUNTER → 2024-12-05 10:39 | Outpatient (BNV) | payer OTHER, SELFPAY | PROVIDERS: PCP Internal Medicine Medical Oncology; Visit Provider Radiology Diagnostic Radiology | DX: M25.551 Pain in right hip (principal) | CPT/HCPCS: 73502 ==

== ENCOUNTER 2025-01-07 08:15 | Outpatient (REF) | payer OTHER, SELFPAY ==
--- NOTE | ~2025-01-07 | XR_ITS ---
EXAMINATION: XR PELVIS CLINICAL INFORMATION: M25.559 - Pain in unspecified hip COMPARISON: None available. TECHNIQUE: AP view of the pelvis. FINDINGS: There are degenerative changes of the left greater than right SI joints. Left SI joint demonstrates sclerosis on both sides of the joint and irregularity of the joint space. The right SI joint demonstrates sclerosis superiorly. The hip joints are symmetrical. Joints appear congruent. No other abnormality noted. XR/XR pelvis 1-2V IMPRESSION: There are degenerative changes involving the SI joints, moderate on the left and mild on the right. Electronically signed by: Sandip Ferrari MD 01/07/2025 10:53 AM EDT
== END 2025-01-07 08:16 | disposition home or self-care (01) ==
LOC: HO.HOSX 08:15
PROVIDERS: Visit Provider Physician Assistant
DX: M70.61 Trochanteric bursitis, right hip (principal); M25.559 Pain in unspecified hip
CPT/HCPCS: 20610; 72170; J1010; J2003

== ENCOUNTER 2025-01-07 09:45 | Outpatient (AMB) | payer OTHER, SELFPAY ==
--- NOTE | 2025-01-07 09:53 | A.OFFVIS_ITS ---
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 Patient was seen by his PCP who refereed to orthopedics to discuss injections. No previous treatment. No hx of pain. Patient reports ongoing pain for more than 5 years. He states that his pain had been getting worse this past month. He was also provided with a short occurs of prednisone. Patient mentions that he might have a cyst in his hip when he was seen back in 2014/2015. Today patient reports having pain on the lateral aspect of the hip and it moves down to his knee. Patient uses ice and hot with mild relief, prenison and tylenol and ibuprofen with mild relief. Allergies No Known Allergies Allergy (Unknown, Verified 01/07/25 09:59) HPI HPI BELLHOP CAPTAIN-Rt hip busitis/pain: Details: 59-year-old gentleman presents to the office today for right hip pain which has been present for over 5 years. He states it is getting worse over time and he has difficulty with prolonged standing and sleeping on the right side. He denies groin pain. Denies low back pain. Denies numbness or tingling down the leg. [facility] Medical History KIRILL (obstructive sleep apnea) Smoker COPD (chronic obstructive pulmonary disease) HTN (hypertension) Acid reflux Diverticulitis Surgical History Hx of colonoscopy History of colostomy reversal H/O colostomy Family History Mother Diabetes Arthritis Sleep apnea COPD (chronic obstructive pulmonary disease) Father Stomach cancer Diabetes Arthritis Sister Arthritis Social History (Updated 01/07/25 @ 10:00 by Dk Braden) Household Members: Spouse and Children Household Members Other:: and kid Housing: Apartment Housing Other:: 4th floor Do you presently have visiting nurse or other home services: No Alcohol intake: former Comment: at bedside Patient Tobacco Use Status: Former Tobacco user Tobacco use type: Cigarette Cigarette Packs Per Day: 1 Cigarettes Per Day: 13 Years Smoked: 60 e-Cigarette/Vaping Use: Never Used Second Hand Smoke Exposure: No Advance Directives Date on File: 01/17/24 service: No Current occupational status: employed 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 No pain with ROM of the hip. Pain along the greater trochanter. No pain with hip flexion or abduction.There is tenderness along the si joint, Negative SLR. NVI. Office Procedures AMB Joint Injection/Aspiration Joint Injection/Aspiration Details: right trochanteric bursa Prep: site was prepped using aseptic technique, ethochloride spray was applied and injection warnings given Injected: 80 mg of, DepoMedrol, with 8 mL of and 1% plain lidocaine Procedure: The patient tolerated the procedure well and there was some relief with the local anesthesia Coding 84219 - Glenohumeral/Tronchanteric Bursa/Intraarticular Procedure code (CPT) selection complete Results Reviewed Results Reviewed: Xrays were obtained in the office today and personally reviewed by me of the right hip show mild oa Assessment & Plan Assessment & Plan (1) Trochanteric bursitis, right hip: Code(s): M70.61 - Trochanteric bursitis, right hip Category: Medical Plan: We discussed options today, which include steroid injection. The patient did consent to move forward with the right hip bursa injection, which was tolerated well.? I recommended rest, ice and elevation and OTC antiinflammatories prn for discomfort. If symptoms persist over the next 6-8 weeks, they will contact our office, otherwise, prn Orders: Orders XR pelvis 1-2V Today M25.559 - Pain in unspecified hip Coding Level of Care Code New Pt Level 3 (55628) Complex EM visit Add On G2211 Diagnoses Trochanteric bursitis, right hip M70.61 CPT Codes Coding - Joint 7: 85122 - Glenohumeral/Tronchanteric Bursa/Intraarticular ([id number])
[2025-01-07 10:00] VITALS: BMI 43.0
== END 2025-01-07 10:36 | disposition home or self-care (01) ==
LOC: HO.HOS 09:46
PROVIDERS: PCP Internal Medicine Medical Oncology; Visit Provider Physician Assistant
DX: M70.61 Trochanteric bursitis, right hip (principal)
CPT/HCPCS: 20610; 99203

== ENCOUNTER → 2025-01-07 09:48 | Outpatient (BNV) | payer OTHER, SELFPAY | PROVIDERS: Visit Provider Radiology Diagnostic Radiology | DX: M46.1 Sacroiliitis, not elsewhere classified (principal) | CPT/HCPCS: 72170 ==

== ENCOUNTER 2025-01-16 08:59 | Emergency (ER) | payer OTHER, SELFPAY ==
--- NOTE | 2025-01-16 09:04 | PC.NURSE ---
Provider notified of pt and their symptoms to assess at bedside for neuro concerns
[2025-01-16 09:10] VITALS: BP 140/97; PULSE 102; RESP 12; TEMP 37.1; O2SAT 93; BMI 42.9
--- NOTE | 2025-01-16 09:12 | ED_ITS ---
HPI - General Adult General Chief complaint: Neuro Symptoms/Deficit Stated complaint: dizzy, right facial numbness Time Seen by Provider: 01/16/25 09:05 History of Present Illness ED Provider: Chester MANCILLA narrative: The patient is a 59-year-old male who says that yesterday he felt that the right side of his face was not working properly. He feels like he has had some drooling from the right side of his face. He also feels that his right eye is not blinking properly. He has not had any weakness in his arms or his legs. He has not had any change in his ability to speak although he feels his voice sounds differently because the right side of his face is not working properly. He thinks this started sometime yesterday. 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 He was working a 16 hour shift. At the end of his shift he came to the emergency room. Related Data Home Medications ?Medication ?Instructions ?Recorded ?Confirmed acetaminophen 500 mg tablet 1,000 mg PO DAILY PRN Pain 12/09/23 11/21/24 albuterol sulfate 90 mcg/actuation 2 inh inhalation Q4 H PRN shortness 12/09/23 11/21/24 aerosol inhaler of breath or wheezing polyethylene glycol 3350 17 17 g PO BEDTIME 12/09/23 0 11/21/24 gram/dose oral powder (Miralax) hydrochlorothiazide 25 mg tablet 25 mg PO DAILY 11/21/24 semaglutide (weight loss) 0.25 0.25 mg subcut TU 04/2211/21/24 mg/0.5 mL subcutaneous pen injector (Wegovy) calcium carbonate 550 mg-magnesium 3 - 4 tab PO Q2H MI N Heartburn 11/21/24 11/21/24 hydroxide 110 mg chewable tablet prednisone 20 mg tablet 20 mg PO DAILY 11/21/2410/25 theophylline 400 mg 400 mg PO DAILY@0800 5 11/21/24 tablet,extended release 24 hr Previous Rx's ?Medication ?Instructions ?Recorded CPAP (CPAP Machine/Device) #1 ea 01/24/24 furosemide 40 mg tablet 40 mg PO DAILY #90 tabs 06/25 ipratropium 0.5 mg-albuterol 3 mg 3 ml inhalation Q4-6 H PRN wheezing 10/23/24 (2.5 mg base)/3 mL nebulization #180 mL soln prednisone 10 mg tablet See Taper PO DIRECTED #12 tabs 11/26/24 umeclidinium 62.5 mcg-vilanterol 1 ea PO DAILY #60 ea 01/07/25 25 mcg/actuation powdr for inhalation (Anoro Ellipta) carboxymethylcellulose sodium 1 % 2 drp ophthalmic-Rig ht QID #15 mL 01/16/25 eye drops (Artificial Tears (carboxymethylcellulose)) prednisone 20 mg tablet 60 mg (3 x 20 mg) PO DAILY 6 days 01/16/25 #18 tabs valacyclovir 1 gram tablet 1,000 mg PO TID 7 days #21 tabs 01/16/25 Allergies Allergy/AdvReac Type Severity Reaction Status Date / Time No Known Allergies Allergy Unknown Verified 01/16/25 09:12 Review of Systems 2 Review of Systems: Yes all other systems are reviewed and are negative [facility] Past Medical History Medical History KIRILL (obstructive sleep apnea) Smoker COPD (chronic obstructive pulmonary disease) HTN (hypertension) Acid reflux Diverticulitis Surgical History Hx of colonoscopy History of colostomy reversal H/O colostomy Family History Family History Mother Diabetes Arthritis Sleep apnea COPD (chronic obstructive pulmonary disease) Father Stomach cancer Diabetes Arthritis Sister Arthritis Social History Social History (Updated 01/07/25 @ 10:00 by Dk Braden) Household Members: Spouse and Children Household Members Other:: and kid Housing: Apartment Housing Other:: 4th floor Do you presently have visiting nurse or other home services: No Alcohol intake: former Comment: at bedside Patient Tobacco Use Status: Former Tobacco user Tobacco use type: Cigarette Cigarette Packs Per Day: 1 Cigarettes Per Day: 13 Years Smoked: 60 e-Cigarette/Vaping Use: Never Used Second Hand Smoke Exposure: No Advance Directives: Yes Advance Directives on File: Yes Advance Directives Date on File: 01/17/24 service: No Current occupational status: employed 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 He has an obvious right- sided facial weakness including the right eyebrow and forehead. Otherwise he is well looking and in no distress. HENMT Other: The patient has right-sided facial weakness that includes the eyebrow and forehead area on the right side. The left side of the face appears entirely normal. Mucous membranes are moist. Tongue is midline. Eyes Other: Pupils are round equal, extraocular movements are intact. Conjunctivae are clear. There is decreased blinking of the right eye. The patient is able to close the right eye but it closes weakly. Neck Neck: Yes normal visual inspection, Yes full ROM, Yes no lymphadenopathy and Yes no JVD Resp Effort & Inspection: normal respiratory effort Auscultation: clear to auscultation bilaterally Cardio Rate: regular rate Rhythm: regular rhythm Heart sounds: S1 normal heart sound present and S2 normal heart sound present Skin Other: The skin is dry and unremarkable General skin exam: no rashes or lesions noted Neuro Other: The patient is awake and alert with a normal mental status. He has a complete right-sided facial nerve palsy. Otherwise his cranial nerves are intact. He has normal strength and sensation in his extremities. He has no pronator drift. He has a steady gait. Extrem Other: There is no calf swelling or tenderness. No asymmetry. No peripheral edema. Medications Administered Discontinued Medications Generic Name Dose Route Start Last Admin Trade Name Freq PRN Reason Stop Dose Admin Prednisone 80 mg 01/16/25 09:21 01/16/25 09:54 Prednisone 20 Mg Tablet PO 01/16/25 09:22 80 mg ONCE ONE Administration Valacyclovir HCl 1,000 mg 01/16/25 09:21 01/16/25 09:54 Valacyclovir Hcl 1,000 Mg Tablet PO 01/16/25 09:22 1,000 mg ONCE ONE Administration Medical Decision Making Medical Decision Making MDM Narrative: The patient presents with what seems to be fairly straight forward case of a right-sided Falk's palsy. The degree of paralysis of the right side of the face is significant. He was started on prednisone and valacyclovir. He does not consider himself at high-risk for Lyme disease. A Lyme screen test was sent but no doxycycline was initiated. He was educated about the nature of Falk's palsy. He was advised that in addition to taking the medications he will need to protect his right eye. A prescription for artificial tears was sent. He was advised to tape his eye shut at night. He should follow up soon with his PCP. Lab Data 01/16/25 09:53 01/16/25 09:53 Labs: Lab Results 01/16/25 Range/Units 09:53 WBC 11.1 H (4.8-10.8) X10*3/uL RBC 4.55 L (4.60-5.80) X10*6/uL Hgb 13.3 L (14.0-18.0) g/dl Hct 40.0 L (42.0-52.0) % MCV 87.9 (80.0-98.0) fL MCH 29.2 (27.0-33.0) pg MCHC 33.3 (31.0-36.0) g/dl RDW 15.2 (11.0-16.0) % Plt Count 309 (160-400) X10*3/uL MPV 9.2 L (9.4-12.4) fL Immature Gran % (Auto) 0.5 H (0.0-0.4) % Neut % (Auto) 75.3 H (45-73) % Lymph % (Auto) 18.4 L (20-40) % Sebastian % (Auto) 4.4 (2-11) % Eos % (Auto) 0.9 (0-4) % Baso % (Auto) 0.5 (0-2) % Lymph # (Auto) 2.0 (1.2-4.9) X10*3/uL Sebastian # (Auto) 0.5 (0.1-1.2) X10*3/uL Eos # (Auto) 0.1 (0.0-0.4) X10*3/uL Baso # (Auto) 0.1 (0.0-0.2) X10*3/uL Abs Immat Gran (auto) 0.06 H (0.00-0.03) X10*3/uL Absolute Neuts (auto) 8.4 H (2.0-8.3) x10*3/uL Absolute Nucleated RBC 0.000 (0.0-0.012) X10*3/uL Nucleated RBC % (auto) 0.0 (0.0-0.2) /100WBC Sodium 142 (135-145) mmol/L Potassium 3.8 (3.3-5.1) mmol/L Chloride 104 (96-108) mmol/L Carbon Dioxide 31 H (22-29) mmol/L Anion Gap 11 L (12-20) BUN 12 (9-16) mg/dL Creatinine 1.02 (0.5-1.4) mg/dL Estim Creat Clear Calc 110.8 Estimated GFR > 60 Random Glucose 109 (60-115) mg/dL Calcium 8.9 (8.4-10.2) mg/dL Total Bilirubin 0.4 (0.0-1.0) mg/dL Direct Bilirubin 0.1 (0.0-0.5) mg/dL AST 20 (5-37) U/L ALT 22 (0-40) U/L Alkaline Phosphatase 93 (39-117) U/L C-Reactive Protein 4.43 H (< or = 0.50) mg/dL Total Protein 6.9 (6.5-8.0) g/dL Albumin 3.7 (3.5-5.0) g/dL Lyme Screen IgG & IgM <0.90 index Lyme Progressive Test TNP Discharge Plan Discharge Clinical Impression: Right-sided Falk's palsy Patient Disposition: Home, Self-Care Instructions: Falk Palsy (ED) Additional Instructions: I believe that you have a condition known as ?Falk's palsy. ? This is a paralysis of 1 side of the face. It is a result of a dysfunction of your right facial nerve. This is the nerve the controls the muscles of your face. The reason for Falk's palsy episodes are not entirely clear but sometimes they are caused by a virus. You has been started on prednisone, a steroid medication which is intended to reduce inflammation which might be causing the dysfunction of the nerve. Additionally you has been started on a medication called valacyclovir, an antiviral medication. You received your dose of prednisone for today. A prescription has been sent to your pharmacy for additional prednisone to be taken daily for the next week. Please take the valacyclovir 3 times a day. Try to take 2 additional doses today. In order to make sure that your right eye does not get dried out please apply the artificial tears 4 times a day. At night you should tape your eye shut. Please contact your regular doctor's office for a follow up appointment next week. Return to the emergency room if significantly worse. Prescriptions: New prednisone 20 mg tablet 60 mg PO DAILY 6 Days Qty: 18 0RF valacyclovir 1 gram tablet 1,000 mg PO TID 7 Days Qty: 21 0RF Artificial Tears (cmc) 1 % drops 2 drp ophthalmic-Right QID Qty: 15 0RF No Action furosemide 40 mg tablet 40 mg PO DAILY Qty: 90 4RF ipratropium-albuterol 0.5 mg-3 mg(2.5 mg base)/3 mL solution for nebulization 3 ml inhalation Q4-6H PRN (Reason: wheezing) Qty: 180 0RF umeclidinium-vilanterol [Anoro Ellipta] 62.5-25 mcg/actuation blister with device 1 ea PO DAILY Qty: 60 6RF hydrochlorothiazide 25 mg tablet 25 mg PO DAILY (DME) CPAP Machine/Device Device See Rx Instructions .Route Qty: 1 0RF Rx Instructions: As directed. Auto cpap 5-20. with all supplies Length of need lifetime acetaminophen 500 mg Tablet 1,000 mg PO DAILY PRN (Reason: Pain) polyethylene glycol 3350 [Miralax] 17 gram/dose Powder 17 g PO BEDTIME albuterol sulfate 90 mcg/actuation HFA aerosol inhaler 2 inh inhalation Q4H PRN (Reason: shortness of breath or wheezing) Wegovy 0.25 mg/0.5 mL pen injector 0.25 mg subcut TU prednisone 20 mg tablet 20 mg PO DAILY calcium carbonate-mag hydroxid 550-110 mg Tablet,Chewable 3 - 4 tab PO Q2H PRN (Reason: Heartburn) theophylline 400 mg tablet extended release 24 hr 400 mg PO DAILY@0800 prednisone 10 mg tablet See Taper PO DIRECTED Qty: 12 0RF Taper: Prednisone 30 mg daily for 2 Days and 0 Hour 20 mg daily for 2 Days and 0 Hour 10 mg daily for 2 Days and 0 Hour Rx Instructions: see taper instructions Referrals: Leonard Boston MD [Primary Care Provider, Internal Medicine] Referral Note: Falk's palsy Stand Alone Forms: Work/School Release Interventions: ED Discharge Assessment Last Done: 01/16/25 11:06 Discharge Date/Time: 01/16/25 11:07 Print Language: Serbian
--- NOTE | 2025-01-16 09:19 | ECG_ITS ---
Test Reason : neuro symptoms Blood Pressure : */* mmHG Vent. Rate : 91 BPM Atrial Rate : 91 BPM P-R Int : 118 ms QRS Dur : 90 ms QT Int : 388 ms P-R-T Axes : 25 22 65 degrees QTcB Int : 477 ms Normal sinus rhythm Normal ECG When compared with ECG of 21-Nov-2024 08:01, Nonspecific T wave abnormality no longer evident in Lateral leads QT has lengthened Referred By: Eliu Briggs Electronically Signed By: RANJAN WANG
[2025-01-16] MEDS: predniSONE 20 MG TABLET 80 MG PO (09:54)
[2025-01-16] MEDS: valACYclovir HCL 1,000 MG TABLET 1000 MG PO (09:54)
[2025-01-16 09:58] LABS: MANUAL DIFF FLAG NO
[2025-01-16 10:00] LABS: Basophils Absolute Auto 0.1 X10*3/uL (0.0-0.2); Basophils Percent Auto 0.5 % (0-2); Eosinophils Absolute Auto 0.1 X10*3/uL (0.0-0.4); Eosinophils Percent Auto 0.9 % (0-4); Hemoglobin 13.3 g/dl (14.0-18.0); Imm Gran Abs Auto 0.06 X10*3/uL (0.00-0.03); Imm Gran Pct Auto 0.5 % (0.0-0.4); Lymphocytes Percent Auto 18.4 % (20-40); Mean Corpuscular HGB Conc 33.3 g/dl (31.0-36.0); Mean Corpuscular Hemoglobin 29.2 pg (27.0-33.0); Mean Corpuscular Volume 87.9 fL (80.0-98.0); Mean Platelet Volume 9.2 fL (9.4-12.4); Monocytes Absolute Auto 0.5 X10*3/uL (0.1-1.2); Monocytes Percent Auto 4.4 % (2-11); Neutrophils Absolute Auto 8.4 x10*3/uL (2.0-8.3); Neutrophils Percent Auto 75.3 % (45-73); Platelet Count 309 X10*3/uL (160-400); Red Blood Count 4.55 X10*6/uL (4.60-5.80); Red Cell Distribution Width 15.2 % (11.0-16.0); White Blood Count 11.1 X10*3/uL (4.8-10.8)
[2025-01-16 10:13] LABS: Alanine Aminotransferase 22 U/L (0-40); Albumin Level 3.7 g/dL (3.5-5.0); Alkaline Phosphatase 93 U/L (39-117); Anion Gap 11 (12-20); Aspartate Amino Transferase 20 U/L (5-37); Bilirubin Direct 0.1 mg/dL (0.0-0.5); Bilirubin Total 0.4 mg/dL (0.0-1.0); Blood Urea Nitrogen 12 mg/dL (9-16); C Reactive Protein 4.43 mg/dL (< or = 0.50); Calcium 8.9 mg/dL (8.4-10.2); Carbon Dioxide 31 mmol/L (22-29); Chloride 104 mmol/L (96-108); Creatinine Clr Calc Pharmacy 110.8; Estimated Glomerular Filt Rate > 60; Glucose Random 109 mg/dL (60-115); Potassium 3.8 mmol/L (3.3-5.1); Sodium 142 mmol/L (135-145); Total Protein 6.9 g/dL (6.5-8.0)
[2025-01-16 10:58] VITALS: BP 143/87; PULSE 86; RESP 10; TEMP 36.9; O2SAT 90
[2025-01-16 11:06] VITALS: BP 143/87; PULSE 86; RESP 10; TEMP 36.9; O2SAT 90
[2025-01-17 10:09] LABS: Lyme Abs Screen <0.90 index
== END 2025-01-16 11:07 | disposition home or self-care (01) ==
PROVIDERS: Emergency Provider Emergency Medicine; PCP Internal Medicine Medical Oncology
DX: G51.0 Bell's palsy (principal); R42 Dizziness and giddiness; R20.0 Anesthesia of skin; Z87.891 Personal history of nicotine dependence; Z79.899 Other long term (current) drug therapy
CPT/HCPCS: 36415; 80048; 80076; 85025; 86140; 86617; 86618; 93005; 99283; 99284

== ENCOUNTER → 2025-01-16 09:19 | Outpatient (BNV) | payer OTHER, SELFPAY | PROVIDERS: Emergency Provider Emergency Medicine; PCP Internal Medicine Medical Oncology; Visit Provider Internal Medicine | DX: R29.818 Other symptoms and signs involving the nervous system (principal) | CPT/HCPCS: 93010 ==

== ENCOUNTER 2025-01-17 13:22 | Outpatient (AMB) | payer OTHER, SELFPAY ==
[2025-01-17 13:49] VITALS: BP 122/78; PULSE 84; O2SAT 94; BMI 42.9
--- NOTE | 2025-01-17 13:49 | A.OFFVIS_ITS ---
Vital Signs 01/17/25 13:49 Height 5 ft 10 in Weight 299 lb BMI 42.9 BP 122/78 Blood Pressure Location Rt brachial Position Sitting Pulse 84 Pulse Source Pulse Oximeter Pulse Oximetry (%) 94 Oxygen Delivery Method Room Air Intake Visit Reasons: kirill Allergies No Known Allergies Allergy (Unknown, Verified 01/17/25 13:55) HPI HPI kirill: Details: 59-year-old gentleman recent 30+ pack-year smoker, quit 04/2023 now followed for pulmonary emphysema, KIRILL now on CPAP, and dyspnea on exertion. After the last office visit he was started on BiPAP , with significant improvement in his sleep symptoms. He is still having difficulties adjusting to using a BiPAP mask, however his AHI index has fallen 10 fold from 112 down to 12 events per hour with significant symptomatic benefit. He had a recent hospitalization in November for exacerbation, but now has improved to baseline. Patient continues to u se Anoro, duo nebs, Combivent, and albuterol MDI with reasonable control of his underlying COPD symptoms. Unfortunately, he had recent Falk's palsy and now has difficulty using his BiPAP. [facility] Medical History KIRILL (obstructive sleep apnea) Smoker COPD (chronic obstructive pulmonary disease) HTN (hypertension) Acid reflux Diverticulitis Surgical History Hx of colonoscopy History of colostomy reversal H/O colostomy Family History Mother Diabetes Arthritis Sleep apnea COPD (chronic obstructive pulmonary disease) Father Stomach cancer Diabetes Arthritis Sister Arthritis Social History (Updated 01/07/25 @ 10:00 by Dk Braden) Household Members: Spouse and Children Household Members Other:: and kid Housing: Apartment Housing Other:: 4th floor Do you presently have visiting nurse or other home services: No Alcohol intake: former Comment: at bedside Patient Tobacco Use Status: Former Tobacco user Tobacco use type: Cigarette Cigarette Packs Per Day: 1 Cigarettes Per Day: 13 Years Smoked: 60 e-Cigarette/Vaping Use: Never Used Second Hand Smoke Exposure: No Advance Directives Date on File: 01/17/24 service: No Current occupational status: employed 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 Review of Systems Const Denies daytime sleepiness, Denies excessive sweating, Denies fatigue, Denies fever(s), Denies lethargy, Denies malaise, Denies night sweats, Denies snoring and Denies weight loss Eyes Denies blurry vision and Denies itchy eyes ENT Denies nasal congestion, Denies post nasal drip, Denies sinus pain, Denies sinus pressure and Denies other ( Thrush) Card Denies chest pain, Denies pedal edema, Denies dyspnea, Denies orthopnea and Denies paroxysmal nocturnal dyspnea Resp Denies cough, Denies hemoptysis, Denies excessive phlegm production, Denies dyspnea, Denies snoring and Denies wheezing GI Denies abdominal pain and Denies heartburn Musc Denies myalgias, Denies arthralgias and Denies joint swelling Skin/Breast Denies rash Neuro Denies memory loss and Denies seizure-like activity Psych Denies abnormal sleep pattern, Denies anxiety and Denies memory loss Endo Denies excessive sweating, Denies fatigue and Denies heat intolerance Liam/Lymph Denies easy bruising Aller/Immun Denies itchy eyes, Denies seasonal rhinorrhea and Denies wheezing Physical Exam Vital Signs: Last Vital Signs Pulse 84 01/17/25 13:49 BP 122/78 01/17/25 13:49 Pulse Ox 94 01/17/25 13:49 Oxygen Delivery Method Room Air 01/17/25 13:49 BMI result Body Mass Index 42.9 Const General: no acute distress and alert Nutritional Appearance: obese Orientation/consciousness: Other orientation findings ( oriented) HEENT Head: Yes atraumatic Eyes General: appearance normal, both eyes and all related structures Sclerae: sclerae normal EOM: EOMs intact bilaterally Neck Neck: Yes supple Lymphatic: no lymphadenopathy noted Resp Effort & Inspection: normal respiratory effort and no use of accessory muscles Auscultation: clear to auscultation bilaterally Cardio Rate: regular rate Rhythm: regular rhythm Heart sounds: no gallops, no murmurs and no rubs Skin General skin exam: other ( warm) Extrem General: No clubbing, No cyanosis and No edema Assessment & Plan Assessment & Plan (1) COPD (chronic obstructive pulmonary disease): Code(s): J44.9 - Chronic obstructive pulmonary disease, unspecified Category: Medical Plan: Baseline controlled on Anoro, duo nebs, Combivent, and albuterol MDI. Continue current regimen. (2) KIRILL (obstructive sleep apnea): Code(s): G47.33 - Obstructive sleep apnea (adult) (pediatric) Category: Medical Plan: Significantly improved control on BiPAP /5. Continue current BiPAP therapy. (3) Personal history of nicotine dependence: Code(s): Z87.891 - Personal history of nicotine dependence Category: Medical Plan: Results of lung cancer screening reviewed, no worrisome nodules. Continue with yearly screening, next in July of 2025, ordered. Coding Level of Care Code Est Pt Level 4 (75177) Complex EM visit Add On G2211 Diagnoses COPD (chronic obstructive pulmonary disease) J44.9 KIRILL (obstructive sleep apnea) G47.33 Personal history of nicotine dependence Z87.891
== END 2025-01-17 14:11 | disposition home or self-care (01) ==
LOC: HO.HPS 13:22
PROVIDERS: PCP Family Medicine; Visit Provider Internal Medicine Pulmonary Disease
DX: J44.9 Chronic obstructive pulmonary disease, unspecified (principal); G47.33 Obstructive sleep apnea (adult) (pediatric); Z87.891 Personal history of nicotine dependence
CPT/HCPCS: 99214; G2211

== ENCOUNTER 2025-02-18 08:07 | Outpatient (AMB) | payer OTHER, SELFPAY ==
--- NOTE | 2025-02-18 10:14 | A.OFFVIS_ITS ---
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 Auto cpap 5-20. 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: Details: Start time: 10.03am, End time: 11.03am I spent 55 minutes speaking with the patient on the phone plus an additional 5 minutes reviewing and updating records for a total of 60 minutes HPI Comments Details: Previous weight loss efforts: self diets and exercise Wakes up: 5am, Sleeps: 12.30am, naps: 10am-12pm Breakfast: 6am (eggs, toast) Lunch: skips Dinner: 6pm (rice, beans, steak, pork chops) Snacks: 3-4 times between 6am to 6pm (chips and candy) Exercise: none Beverages: Coffee: (2-3 cups/d with cream and sugar), Tea: none, Soda: rarely, Juice: none, ETOH: none PFSH Medical History (Updated 02/18/25 @ 10:22 by David Ho MD) Morbid obesity Diabetes mellitus KIRILL (obstructive sleep apnea) Smoker COPD (chronic obstructive pulmonary disease) HTN (hypertension) Acid reflux Diverticulitis Surgical History Hx of colonoscopy History of colostomy reversal H/O colostomy Family History Mother Diabetes Arthritis Sleep apnea COPD (chronic obstructive pulmonary disease) Father Stomach cancer Diabetes Arthritis Sister Arthritis Social History (Updated 01/07/25 @ 10:00 by Dk Braden) Household Members: Spouse and Children Household Members Other:: and kid Housing: Apartment Housing Other:: 4th floor Do you presently have visiting nurse or other home services: No Alcohol intake: former Comment: at bedside Patient Tobacco Use Status: Former Tobacco user Tobacco use type: Cigarette Cigarette Packs Per Day: 1 Cigarettes Per Day: 13 Years Smoked: 60 e-Cigarette/Vaping Use: Never Used Second Hand Smoke Exposure: No Advance Directives Date on File: 01/17/24 service: No Current occupational status: employed 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 Plan for lap sleeve gastrectomy. If diaphragmatic or ventral hernias are present at time of surgery, these will be repaired laparoscopically as well. I emphasized the importance of close follow-up, adherence to instructions and good communication. The surgery does not replace the need to change your lifestlyle which is the cause of the obesity problem. The surgery provides the motivation to try again to change your lifestyle, it reduces the appetite and make the transition to a better lifestyle easier and doubles the amount of weight you would lose compared to doing the lifestyle change without the surgery. You will need to be on a liquid diet with protein shakes for 2 weeks before surgery to maximize weight loss and boost your nutritional status to recover better from surgery and also for the first two weeks after surgery to let the stomach heal before we introduce other foods. After the first 2 weeks we will introduce protein bars and soft foods like scrambled eggs, cottage cheese and yogurt and after the 6th week will introduce meat, fish and cooked vegetables in small amounts. Over time you should be able to eat everything in small amounts. Side effects like nausea, vomiting, heartburn or abdominal pain are not common in the practice unless you are not following in the practice. This operation requires lifetime commitment to following in our practice and communication with me. You will much less weight and experience side effects if you don?t communicate or not following in the practice. Complications are rare and in our practice is about 1/10 of the national average. However, you can develop bleeding that may require transfusion (hasn?t happened for year in the practice), you may from complications (we did not have any deaths in the practice) and infections. Infections are usually a result of breakdown in communication or not understanding or following directions correctly. They are difficult to treat, they can happen during the first 6 weeks, they may require to be in the hospital for weeks or even months, not being able to eat by mouth and you may have drains and surgeries to try and correct the issue. Other risks and complications include possible conversion to an open procedure, leaks, small bowel obstruction, blood clots, cardiac, or pulmonary complications, as longwall shearer operator complications such as ulcers, insufficient weight loss and vitamin deficiencies. 2.Nutritional counseling. Start with one premade PREMIER protein (buy at [employer], or [employer], or [employer]) shake (MIX 4oz of PREMIER and NOT the whole bottle WITH 4oz low fat unsweetened almond milk) at 6am-8am, 1 protein bar (16gr Fit Crunch protein bars, buy at [facility] or [employer]) at 1pm-3pm, another premade PREMIER protein (buy at [employer], or [employer], or [employer]) shake (MIX 4oz of PREMIER and NOT the whole bottle WITH 4oz low fat unsweetened almond milk) at 4pm-6pm, dinner at 7pm (10 forks of protein and 10 forks of salad/vegetables) and one more [employer] Crunch protein bar after dinner at 9pm-11pm. So you do 2 protein shakes, 2 protein bars and one meal per day. Meal to include lean meat (beef, fish, pork, turkey, chicken), or frisian yogurt, or egg whites, or beans with a salad with olive oil and fruits (berries, pears, apples, kiwi). Avoid salt, breads, potatoes, rice, pasta, desserts. 3. The times of your meal plan are reflecting the times you sleep and nap presently. As we discussed, I asked you to stop naping in the morning and sleep longer at night. If you manage to do that, please let me know because the meal times will have to be adjusted. 4. Each shake would be drunk slowly, like coffee in a period of 2 hours. 5. Cut each bar in 4 pieces and eat each piece in 30min to make each bar last 2 hours. 6. I emphasized the importance of measuring accurately the food portion and measure it when serving the food in plate 7. The meal portions include 10 full-size forks of meat and 10 full-size forks of salad. You always eat the meat portion but you can replace up to 5 forks for salad/vegetables with rice, potatoes or pasta, or a fruit if you like. The less you do it the better weight loss will be. 8. One full-size fork is what it can be scooped on the fork without falling aside and not what can be bit with the fork. Use regular forks like those you find in a typical restaurant. 9. Please buy the body composition scale we discussed and send me weight measurements as soon as possible and then once a week. Always include your diet and exercise plan. 9. Start walking outside daily, tracking calories with a goal of 300 calories per day, daily. Goal is to burn 2000 calories per week on exercise, which means either 300 calories daily, or 400 calories 5 days per week, or 500 calories 4 days per week, or 650 calories 3 days per week. 10. The best choice would be to purchase a stationary bike at home that can track calories. If you get a stationary bike, please start the stationary bike at a resistance level of 4.0 Increase level by 1.0 every 3 min to a max level of 10.0. Stay at this level for 3 min and then return to level 4.0 and repeat same steps until 300 calories are burned. Goal is to burn 2000 calories per week on exercise 11. Goal is to lose at least 1.5-2lbs per week 12. Goal to lose 10% of your weight before surgery, which is about 30lbs. Ultimate weight goal: 264bs before surgery 13. Please follow the diet plan exactly without any change. If you don't like something about the plan or you feel hungry you need to communicate with me so I can help you revise the plan. You should not change the plan yourself 14. To be scheduled for EGD to assess the stomach's anatomy. The po+ssibility of biopsies was discussed. Patient needs to avoid use of NSAIDs and aspirin for 1 week prior to EGD. You must be on liquids only the day before your endoscopy. Risks of perforation and bleeding was discussed with the patient. This will be an outpatient procedure with IV sedation. 15. As of tomorrow, please send me a picture of your meal plate after you measure it, but before you consume it. Orders: Orders Insulin Today E66.01 - Morbid (severe) obesity due to excess calories, G47.33 - Obstructive sleep apnea (adult) (pediatric), I10 - Essential (primary) hypertension, J44.9 - Chronic obstructive pulmonary disease, unspecified, K21.9 - Gastro-esophageal reflux disease without esophagitis Lipid Panel Today E66.01 - Morbid (severe) obesity due to excess calories, G47.33 - Obstructive sleep apnea (adult) (pediatric), I10 - Essential (primary) hypertension, J44.9 - Chronic obstructive pulmonary disease, unspecified, K21.9 - Gastro-esophageal reflux disease without esophagitis Vitamin B12 and Folate Today E66.01 - Morbid (severe) obesity due to excess calories, G47.33 - Obstructive sleep apnea (adult) (pediatric), I10 - Essential (primary) hypertension, J44.9 - Chronic obstructive pulmonary disease, unspecified, K21.9 - Gastro-esophageal reflux disease without esophagitis Zinc Today E66.01 - Morbid (severe) obesity due to excess calories, G47.33 - Obstructive sleep apnea (adult) (pediatric), I10 - Essential (primary) hypertension, J44.9 - Chronic obstructive pulmonary disease, unspecified, K21.9 - Gastro-esophageal reflux disease without esophagitis Vitamin B1 Today E66.01 - Morbid (severe) obesity due to excess calories, G47.33 - Obstructive sleep apnea (adult) (pediatric), I10 - Essential (primary) hypertension, J44.9 - Chronic obstructive pulmonary disease, unspecified, K21.9 - Gastro-esophageal reflux disease without esophagitis Ferritin Today E66.01 - Morbid (severe) obesity due to excess calories, G47.33 - Obstructive sleep apnea (adult) (pediatric), I10 - Essential (primary) hypertension, J44.9 - Chronic obstructive pulmonary disease, unspecified, K21.9 - Gastro-esophageal reflux disease without esophagitis Vitamin D 25-OH Total Today E66.01 - Morbid (severe) obesity due to excess calories, G47.33 - Obstructive sleep apnea (adult) (pediatric), I10 - Essential (primary) hypertension, J44.9 - Chronic obstructive pulmonary disease, unspecified, K21.9 - Gastro-esophageal reflux disease without esophagitis US abdomen comp w elastography Today E66.01 - Morbid (severe) obesity due to excess calories, G47.33 - Obstructive sleep apnea (adult) (pediatric), I10 - Essential (primary) hypertension, J44.9 - Chronic obstructive pulmonary disease, unspecified, K21.9 - Gastro-esophageal reflux disease without esophagitis ECG 12 lead EKG Today E66.01 - Morbid (severe) obesity due to excess calories, G47.33 - Obstructive sleep apnea (adult) (pediatric), I10 - Essential (primary) hypertension, J44.9 - Chronic obstructive pulmonary disease, unspecified, K21.9 - Gastro-esophageal reflux disease without esophagitis Hemoglobin A1c Today E66.01 - Morbid (severe) obesity due to excess calories, G47.33 - Obstructive sleep apnea (adult) (pediatric), I10 - Essential (primary) hypertension, J44.9 - Chronic obstructive pulmonary disease, unspecified, K21.9 - Gastro-esophageal reflux disease without esophagitis H Pylori Breath Test Today E66.01 - Morbid (severe) obesity due to excess calories, G47.33 - Obstructive sleep apnea (adult) (pediatric), I10 - Essential (primary) hypertension, J44.9 - Chronic obstructive pulmonary disease, unspecified, K21.9 - Gastro-esophageal reflux disease without esophagitis Complete Blood Count Auto Diff Today E66.01 - Morbid (severe) obesity due to excess calories, G47.33 - Obstructive sleep apnea (adult) (pediatric), I10 - Essential (primary) hypertension, J44.9 - Chronic obstructive pulmonary disease, unspecified, K21.9 - Gastro-esophageal reflux disease without esophagitis IRON PROFILE Today E66.01 - Morbid (severe) obesity due to excess calories, G47.33 - Obstructive sleep apnea (adult) (pediatric), I10 - Essential (primary) hypertension, J44.9 - Chronic obstructive pulmonary disease, unspecified, K21.9 - Gastro-esophageal reflux disease without esophagitis Comprehensive Met. Panel Today E66.01 - Morbid (severe) obesity due to excess calories, G47.33 - Obstructive sleep apnea (adult) (pediatric), I10 - Essential (primary) hypertension, J44.9 - Chronic obstructive pulmonary disease, unspecified, K21.9 - Gastro-esophageal reflux disease without esophagitis C Reactive Protein Today E66.01 - Morbid (severe) obesity due to excess calories, G47.33 - Obstructive sleep apnea (adult) (pediatric), I10 - Essential (primary) hypertension, J44.9 - Chronic obstructive pulmonary disease, unspecified, K21.9 - Gastro-esophageal reflux disease without esophagitis Vitamin A Today E66.01 - Morbid (severe) obesity due to excess calories, G47.33 - Obstructive sleep apnea (adult) (pediatric), I10 - Essential (primary) hypertension, J44.9 - Chronic obstructive pulmonary disease, unspecified, K21.9 - Gastro-esophageal reflux disease without esophagitis TSH reflex Free T4 Today E66.01 - Morbid (severe) obesity due to excess calories, G47.33 - Obstructive sleep apnea (adult) (pediatric), I10 - Essential (primary) hypertension, J44.9 - Chronic obstructive pulmonary disease, unspecified, K21.9 - Gastro-esophageal reflux disease without esophagitis XR chest 2V Today E66.01 - Morbid (severe) obesity due to excess calories, G47.33 - Obstructive sleep apnea (adult) (pediatric), I10 - Essential (primary) hypertension, J44.9 - Chronic obstructive pulmonary disease, unspecified, K21.9 - Gastro-esophageal reflux disease without esophagitis FL upper GI w air Today E66.01 - Morbid (severe) obesity due to excess calories, G47.33 - Obstructive sleep apnea (adult) (pediatric), I10 - Essential (primary) hypertension, J44.9 - Chronic obstructive pulmonary disease, unspecified, K21.9 - Gastro-esophageal reflux disease without esophagitis Referrals Behavioral Health Referral E66.01 - Morbid (severe) obesity due to excess calories, G47.33 - Obstructive sleep apnea (adult) (pediatric), I10 - Essential (primary) hypertension, J44.9 - Chronic obstructive pulmonary disease, unspecified, K21.9 - Gastro-esophageal reflux disease without esophagitis Nutrition/Dietitian Referral E66.01 - Morbid (severe) obesity due to excess calories, G47.33 - Obstructive sleep apnea (adult) (pediatric), I10 - Essential (primary) hypertension, J44.9 - Chronic obstructive pulmonary disease, unspecified, K21.9 - Gastro-esophageal reflux disease without esophagitis
== END 2025-02-18 11:04 | disposition home or self-care (01) ==
LOC: HO.HBS 08:07
PROVIDERS: PCP Family Medicine; Visit Provider Surgery
DX: E66.01 Morbid (severe) obesity due to excess calories (principal); Z68.41 Body mass index [BMI] 40.0-44.9, adult
CPT/HCPCS: 98011

== ENCOUNTER 2025-02-26 06:50 | Emergency (ER) | payer OTHER, SELFPAY ==
--- NOTE | ~2025-02-26 | XR_ITS ---
EXAMINATION: XR CHEST CLINICAL INFORMATION: sob COMPARISON: 11/21/2024, 04/22/2024, 03/03/2024. TECHNIQUE: 2 views of the chest were obtained. FINDINGS: The cardiac, hilar, and mediastinal contours are normal. There is a prominent epicardial fat pad. The lungs are mildly hyperaerated, however clear bilaterally. There is no pneumothorax or pleural effusion. There is no focal osseous or soft tissue abnormality. XR/XR chest 2V IMPRESSION: No active pulmonary disease. Electronically signed by: Mesfin Cueva MD 02/26/2025 08:14 AM EDT
[2025-02-26 07:01] VITALS: BP 138/74; PULSE 72; RESP 18; TEMP 36.8; O2SAT 94; BMI 43.8
--- NOTE | 2025-02-26 07:20 | ECG_ITS ---
Test Reason : SOB Blood Pressure : */* mmHG Vent. Rate : 74 BPM Atrial Rate : 74 BPM P-R Int : 140 ms QRS Dur : 82 ms QT Int : 370 ms P-R-T Axes : 57 8 75 degrees QTcB Int : 410 ms Normal sinus rhythm Cannot rule out Anterior infarct , age undetermined Abnormal ECG When compared with ECG of 16-Jan-2025 09:31, QT has shortened Referred By: Generic ED Physician Electronically Signed By: RANJAN WANG
[2025-02-26 07:31] LABS: MANUAL DIFF FLAG NO
[2025-02-26 07:43] LABS: Hematocrit 42.7 % (42.0-52.0); Hemoglobin 14.0 g/dl (14.0-18.0); Imm Gran Abs Auto 0.07 X10*3/uL (0.00-0.03); Imm Gran Pct Auto 0.7 % (0.0-0.4); Lymphocytes Absolute Auto 1.5 X10*3/uL (1.2-4.9); Mean Corpuscular HGB Conc 32.8 g/dl (31.0-36.0); Mean Corpuscular Hemoglobin 28.9 pg (27.0-33.0); Mean Corpuscular Volume 88.0 fL (80.0-98.0); NRBC Abs Auto 0.000 X10*3/uL (0.0-0.012); NRBC Pct Auto 0.0 /100WBC (0.0-0.2); Platelet Count 362 X10*3/uL (160-400); Red Blood Count 4.85 X10*6/uL (4.60-5.80); White Blood Count 9.6 X10*3/uL (4.8-10.8)
[2025-02-26 07:51] LABS: Alanine Aminotransferase 20 U/L (0-40); Albumin Level 3.8 g/dL (3.5-5.0); Alkaline Phosphatase 98 U/L (39-117); Anion Gap 8 (12-20); Aspartate Amino Transferase 18 U/L (5-37); Blood Urea Nitrogen 10 mg/dL (9-16); Calcium 9.1 mg/dL (8.4-10.2); Carbon Dioxide 28 mmol/L (22-29); Chloride 107 mmol/L (96-108); Creatinine Clr Calc Pharmacy 132.8; Estimated Glomerular Filt Rate > 60; Potassium 4.4 mmol/L (3.3-5.1); Sodium 139 mmol/L (135-145); Total Protein 7.3 g/dL (6.5-8.0)
[2025-02-26 07:56] LABS: B Type Natriuretic Peptide < 10 pg/mL (<100)
[2025-02-26 08:09] LABS: Resp Syncy Virus RNA Qual PCR NEGATIVE (Negative); SARS COV2 PCR INHOUSE NEGATIVE (Negative)
--- NOTE | 2025-02-26 08:13 | ED.SOB ---
HPI - SOB/Dyspnea General Chief Complaint: Dyspnea Stated Complaint: Difficulty Breathing Time Seen by Provider: 02/26/25 08:13 Source: patient and RN notes reviewed Mode of arrival: ambulatory Limitations: no limitations History of Present Illness ED Provider: Dalia Aburto HPI Narrative: This is a 59-year-old male with a past medical history of COPD with chronic hypoxic hypercarbic respiratory failure on 2 L nasal cannula baseline (noncompliant), KIRILL noncompliant with BiPAP 30+ year pack smoking history presents with shortness for breath for the last 2 days. Pt reports having difficulty ambulating due to increased dyspnea on exertion for the past 2 days. Patient believes that the recent change in weather and air quality has exacerbated his COPD. He reports using his daily inhaler as well as albuterol rescue inhaler, with minimal relief. He is notably not compliant with BiPAP for his obstructive sleep apnea and sometimes does not wear oxygen at home, which he is supposed to wear at baseline at all times. He states that some days he feels well and does not want to wear his supplemental oxygen. Patient reports that he has had no fevers, chills, cough, sore throat, chest pain, palpitations, abdominal pain, nausea, vomiting or diarrhea. No lower extremity edema. He states that he had an extra dose of prednisone at home which he took this morning. He states in total he took 20 mg of prednisone. No other complaints or concerns at this time. MD elicited complaint: shortness of breath Pertinent past history: COPD Onset (ago): day(s) Exacerbating factors: nothing Relieving factors: nothing Known history of: COPD Associated symptoms: denies other symptoms Treatment prior to arrival: none Related Data Home Medications ?Medication ?Instructions ?Recorded ?Confirmed acetaminophen 500 mg tablet 1,000 mg PO DAILY PRN Pain 12/09/23 02/18/25 albuterol sulfate 90 mcg/actuation 2 inh inhalation Q4H PRN shortness 12/09/23 02/18/25 aerosol inhaler of breath or wheezing polyethylene glycol 3350 17 17 g PO BEDTIME 12/09/23 02/18/25 gram/dose oral powder (Miralax) hydrochlorothiazide 25 mg tablet 25 mg PO DAILY 01/22/24 02/18/25 calcium carbonate 550 mg-magnesium 3 - 4 tab PO Q2H PRN Heartburn 11/21/24 02/18/25 hydroxide 110 mg chewable tablet theophylline 400 mg 400 mg PO DAILY@0800 11/21/24 02/18/25 tablet,extended release 24 hr Previous Rx's ?Medication ?Instructions ?Recorded CPAP (CPAP Machine/Device) #1 ea 01/24/24 furosemide 40 mg tablet 40 mg PO DAILY #90 tabs 07/13/24 umeclidinium 62.5 mcg-vilanterol 1 ea PO DAILY #60 ea 01/07/25 25 mcg/actuation powdr for inhalation (Anoro Ellipta) carboxymethylcellulose sodium 1 % 2 drp ophthalmic-Right QID #15 mL 01/16/25 eye drops (Artificial Tears (carboxymethylcellulose)) ipratropium 20 mcg-albuterol 100 1 puff inhalation Q6H #1 ea 02/13/25 mcg/actuation mist for inhalation (Combivent Respimat) ipratropium 0.5 mg-albuterol 3 mg 3 ml inhalation Q4-6H PRN wheezing 02/25/25 (2.5 mg base)/3 mL nebulization #180 mL soln prednisone 20 mg tablet 40 mg (2 x 20 mg) PO DAILY 4 days 02/26/25 #8 tabs Allergies Allergy/AdvReac Type Severity Reaction Status Date / Time No Known Allergies Allergy Unknown Verified 02/26/25 07:02 Review of Systems Review of Systems: Yes all other systems are reviewed and are negative Constitutional: Constitutional: Reports as per HPI, Denies chills, Denies fever(s) and Denies malaise ENT: Reports Normal hearing present Cardiovascular: Cardiovascular: Reports chest pain with activity, Reports dyspnea and Reports dyspnea on exertion Respiratory: Respiratory: Reports dyspnea and Reports dyspnea on exertion Gastrointestinal: Gastrointestinal: Denies abdominal pain, Denies diarrhea, Denies nausea and Denies vomiting Neurologic: Reports Normal hearing present [facility] Past Medical History Medical History (Updated 02/26/25 @ 11:41 by ALISON Chambers) Morbid obesity Diabetes mellitus KIRILL (obstructive sleep apnea) Smoker COPD (chronic obstructive pulmonary disease) HTN (hypertension) Acid reflux Diverticulitis Surgical History Hx of colonoscopy History of colostomy reversal H/O colostomy Family History Family History Mother Diabetes Arthritis Sleep apnea COPD (chronic obstructive pulmonary disease) Father Stomach cancer Diabetes Arthritis Sister Arthritis Social History Social History (Updated 01/07/25 @ 10:00 by Dk Braden) Household Members: Spouse and Children Household Members Other:: and kid Housing: Apartment Housing Other:: 4th floor Do you presently have visiting nurse or other home services: No Alcohol intake: former Comment: at bedside Patient Tobacco Use Status: Former Tobacco user Tobacco use type: Cigarette Cigarette Packs Per Day: 1 Cigarettes Per Day: 13 Years Smoked: 60 e-Cigarette/Vaping Use: Never Used Second Hand Smoke Exposure: No Advance Directives Date on File: 01/17/24 service: No Current occupational status: employed 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 Vital Signs: Vital Signs: Last Vital Signs Temp 97.5 F 02/26/25 12:12 Pulse 91 02/26/25 12:12 Resp 14 02/26/25 12:12 BP 145/95 H 02/26/25 12:12 Pulse Ox 96 02/26/25 12:12 O2 Del Method Nasal Cannula 02/26/25 12:12 O2 Flow Rate 2 02/26/25 12:12 BMI result Body Mass Index 43.8 Const: General: cooperative Nutritional Appearance: overweight Orientation/consciousness: patient oriented x3 Limitations: no limitations HEENT: Head: Yes normocephalic and Yes atraumatic Ears: hearing grossly normal bilaterally General nose exam: Normal external nose present Face and sinus: Yes normal facial exam Mouth: Normal oral and palatal mucosa present, oropharynx normal and moist mucous membranes Throat: Yes posterior oropharynx normal Eyes: General: appearance normal, both eyes and all related structures Eyelids: Yes eyelids normal Conjunctivae: conjunctivae normal Sclerae: sclerae normal Pupils: Equal, round and reactive pupils present EOM: EOMs intact bilaterally Neck: Neck: Yes normal visual inspection, Yes full ROM and Yes no lymphadenopathy Lymphatic: no lymphadenopathy noted Chest: Chest palpation & inspection: normal inspection of the chest Resp: Other: Lungs are diminished throughout, no wheezes, rales or rhonchi. 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 General: patient oriented x3 and moves all extremities Cranial nerves: Yes Equal, round and reactive pupils present and Yes Normal hearing present Extrem: General: Yes normal to inspection Right upper extremity: normal to inspection Left upper extremity: normal to inspection Right lower extremity: normal to inspection Left lower extremity: normal to inspection Medications Administered Discontinued Medications Generic Name Dose Route Start Last Admin Trade Name Freq PRN Reason Stop Dose Admin Albuterol Sulfate 2.5 mg/ 0 mg 02/26/25 09:36 02/26/25 09:41 Albuterol/Ipratropium 3 ml INHALE 02/26/25 09:37 1 dose ONCE ONE Administration Prednisone 40 mg 02/26/25 11:39 02/26/25 11:44 Prednisone 20 Mg Tablet PO 02/26/25 11:40 40 mg ONCE ONE Administration Medical Decision Making Medical Decision Making [facility] Narrative: This is a 59-year-old male with a past medical history of COPD with chronic hypoxic hypercarbic respiratory failure on 2 L nasal cannula baseline (noncompliant), KIRILL noncompliant with BiPAP 30+ year pack smoking history presents to the emergency department with shortness for breath for the last 2 days. On arrival, patient is well-appearing, appears to be under no acute distress. Vital signs within normal limits. He is speaking in full sentences. Lung sounds are diminished throughout, no wheezes, rales or rhonchi. Patient admits that he is noncompliant with BiPAP for KIRILL, and is supposed to wear oxygen at baseline but does not all the time. Labs were obtained, no leukocytosis, stable H&H, chemistry with no significant electrolyte derangement. VBG was performed as patient has been noncompliant on his supplemental oxygen. VBG reveals that he is compensating, he is not acidotic. Patient did receive updraft in department. Walking O2 saturation reveals that with supplemental oxygen he does not go below 92%. Patient states that he is feeling well, and would like to be discharged home. Patient typically knows when his symptoms are bad enough and when he needs to be admitted, he states that he does not feel this way, and believes that his symptoms can be managed at home. Will discharge patient on prednisone, given a dose of prednisone 40 mg in the department. 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 Patient stable for discharge. Differential Diagnosis Differential Diagnoses: The differential diagnosis associated with the presentation includes Viral URI, COVID, flu, RSV, COPD exacerbation Acute bronchitis Community-acquired pneumonia Admission/Observation Consideration of admission/observation: Escalation of care including admission/observation considered Lab Data [facility] Lab Attestation statement: I reviewed the patient's lab results. See MDM and course 02/26/25 07:25 02/26/25 07:24 Labs: Lab Results 02/26/25 02/26/25 02/26/25 Range/Units 07:24 07:25 10:33 WBC 9.6 (4.8-10.8) X10*3/uL RBC 4.85 (4.60-5.80) X10*6/uL Hgb 14.0 (14.0-18.0) g/dl Hct 42.7 (42.0-52.0) % MCV 88.0 (80.0-98.0) fL MCH 28.9 (27.0-33.0) pg MCHC 32.8 (31.0-36.0) g/dl RDW 15.7 (11.0-16.0) % Plt Count 362 (160-400) X10*3/uL MPV 9.3 L (9.4-12.4) fL Immature Gran % (Auto) 0.7 H (0.0-0.4) % Neut % (Auto) 79.7 H (45-73) % Lymph % (Auto) 15.1 L (20-40) % Trigg % (Auto) 3.6 (2-11) % Eos % (Auto) 0.5 (0-4) % Baso % (Auto) 0.4 (0-2) % Lymph # (Auto) 1.5 (1.2-4.9) X10*3/uL Trigg # (Auto) 0.4 (0.1-1.2) X10*3/uL Eos # (Auto) 0.1 (0.0-0.4) X10*3/uL Baso # (Auto) 0.0 (0.0-0.2) X10*3/uL Abs Immat Gran (auto) 0.07 H (0.00-0.03) X10*3/uL Absolute Neuts (auto) 7.7 (2.0-8.3) x10*3/uL Absolute Nucleated RBC 0.000 (0.0-0.012) X10*3/uL Nucleated RBC % (auto) 0.0 (0.0-0.2) /100WBC VBG pH 7.34 (7.32-7.43) VBG pCO2 58 mmHg VBG pO2 50 mmHg VBG HCO3 32 H (22-26) mmol/L VBG O2 Saturation 77.0 % VBG Base Excess 4.8 mmol/L Sodium 139 (135-145) mmol/L Potassium 4.4 (3.3-5.1) mmol/L Chloride 107 (96-108) mmol/L Carbon Dioxide 28 (22-29) mmol/L Anion Gap 8 L (12-20) BUN 10 (9-16) mg/dL Creatinine 0.86 (0.5-1.4) mg/dL Estim Creat Clear Calc 132.8 Estimated GFR > 60 Random Glucose 128 H (60-115) mg/dL Calcium 9.1 (8.4-10.2) mg/dL Total Bilirubin 0.2 (0.0-1.0) mg/dL AST 18 (5-37) U/L ALT 20 (0-40) U/L Alkaline Phosphatase 98 (39-117) U/L B-Natriuretic Peptide < 10 (<100) pg/mL Total Protein 7.3 (6.5-8.0) g/dL Albumin 3.8 (3.5-5.0) g/dL Influenza Type A (PCR) NEGATIVE (Negative) Influenza Type B (PCR) NEGATIVE (Negative) RSV RNA Qual (PCR) NEGATIVE (Negative) SARS-CoV-2 RNA (RT-PCR) NEGATIVE (Negative) Radiology Impression Discussion of test interpretation with radiology: I have reviewed the radiologist's reading. Radiologist Impression: COMPARISON: 11/21/2024, 04/22/2024, 03/03/2024. TECHNIQUE: 2 views of the chest were obtained. FINDINGS: The cardiac, hilar, and mediastinal contours are normal. There is a prominent epicardial fat pad. The lungs are mildly hyperaerated, however clear bilaterally. There is no pneumothorax or pleural effusion. There is no focal osseous or soft tissue abnormality. XR/XR chest 2V IMPRESSION: No active pulmonary disease. Electronically signed by: Mesfin Cueva MD 02/26/2025 08:14 AM EDT RP Dictated By: Mesfin Cueva MD Discharge Plan Discharge Clinical Impression: COPD (chronic obstructive pulmonary disease) Patient Disposition: Home, Self-Care Instructions: COPD (Chronic Obstructive Pulmonary Disease) (ED) Additional Instructions: You were seen in the emergency department today. Your overall workup today was reassuring. We are starting you on prednisone, you took prednisone 20 mg this morning, we gave you an additional 40 mg today. Please start prednisone tomorrow. 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 Please continue taking all your at-home medications as prescribed. It is very important that you continue using your CPAP machine as well as your 2 L of oxygen. If any new or worsening symptoms occur including but not limited to worsening shortness for breath, chest pain, please seek emergent care. Prescriptions: New prednisone 20 mg tablet 40 mg PO DAILY 4 Days Qty: 8 0RF Rx Instructions: start 02/27/2025 No Action furosemide 40 mg tablet 40 mg PO DAILY Qty: 90 4RF umeclidinium-vilanterol [Anoro Ellipta] 62.5-25 mcg/actuation blister with device 1 ea PO DAILY Qty: 60 6RF Combivent Respimat 20-100 mcg/actuation mist 1 puff inhalation Q6H Qty: 1 6RF ipratropium-albuterol 0.5 mg-3 mg(2.5 mg base)/3 mL solution for nebulization 3 ml inhalation Q4-6H PRN (Reason: wheezing) Qty: 180 0RF hydrochlorothiazide 25 mg tablet 25 mg PO DAILY (DME) CPAP Machine/Device Device See Rx Instructions .Route Qty: 1 0RF Rx Instructions: As directed. Auto cpap 5-20. with all supplies Length of need lifetime Artificial Tears (cmc) 1 % drops 2 drp ophthalmic-Right QID Qty: 15 0RF acetaminophen 500 mg Tablet 1,000 mg PO DAILY PRN (Reason: Pain) polyethylene glycol 3350 [Miralax] 17 gram/dose Powder 17 g PO BEDTIME albuterol sulfate 90 mcg/actuation HFA aerosol inhaler 2 inh inhalation Q4H PRN (Reason: shortness of breath or wheezing) calcium carbonate-mag hydroxid 550-110 mg Tablet,Chewable 3 - 4 tab PO Q2H PRN (Reason: Heartburn) theophylline 400 mg tablet extended release 24 hr 400 mg PO DAILY@0800 Stand Alone Forms: Work/School Release Interventions: ED Discharge Assessment Last Done: 02/26/25 12:12 Discharge Date/Time: 02/26/25 12:13 Print Language: Occitan
[2025-02-26 08:17] VITALS: BP 141/78; PULSE 97; RESP 21; O2SAT 95
--- NOTE | 2025-02-26 08:27 | PC.NURSE ---
Pt roomed changed and placed on full monitor- VSS SOB moreno when speaking- O2 sat remains stable however- dry cough present. Pt also C/O MARROQUIN which he said Is from coughing
[2025-02-26] MEDS: Albuterol Sulfate 2.5 MG, Albuterol/Iprat 2.5/0.5MG 3 ML 3 ML INHALE (09:41)
[2025-02-26 09:42] VITALS: PULSE 76; RESP 16; O2SAT 95
[2025-02-26 10:34] LABS: Venous Blood Gas Refer to POC result
[2025-02-26 10:37] LABS: VBG HCO3 32 mmol/L (22-26); VBG O2 % Saturation 77.0 %
--- NOTE | 2025-02-26 11:50 | PC.NURSE ---
Pt ambulating with 2 LPM O2 as at home, O2 sat went from 96% at rest to 92% ambulating. Provider aware.
[2025-02-26 11:56] VITALS: BP 145/95; PULSE 91; RESP 14; TEMP 36.4; O2SAT 96
[2025-02-26 12:12] VITALS: BP 145/95; PULSE 91; RESP 14; TEMP 36.4; O2SAT 96
== END 2025-02-26 12:13 | disposition home or self-care (01) ==
PROVIDERS: Physician Assistant Medical; Emergency Provider Emergency Medicine; PCP Internal Medicine Medical Oncology
DX: J44.9 Chronic obstructive pulmonary disease, unspecified (principal); J96.12 Chronic respiratory failure with hypercapnia; F17.210 Nicotine dependence, cigarettes, uncomplicated; G47.33 Obstructive sleep apnea (adult) (pediatric); Z03.818 Encounter for observation for suspected exposure to other biological agents ruled out
CPT/HCPCS: 36415; 71046; 80053; 82803; 83880; 85025; 87637; 93005; 94640; 99284; 99285

== ENCOUNTER → 2025-02-26 07:20 | Outpatient (BNV) | payer OTHER, SELFPAY | PROVIDERS: Emergency Provider Emergency Medicine; PCP Internal Medicine Medical Oncology; Visit Provider Internal Medicine | DX: I48.91 Unspecified atrial fibrillation (principal) | CPT/HCPCS: 93010 ==

== ENCOUNTER → 2025-02-26 07:50 | Outpatient (BNV) | payer OTHER, SELFPAY | PROVIDERS: Emergency Provider Emergency Medicine; PCP Internal Medicine Medical Oncology; Visit Provider Radiology Diagnostic Radiology | DX: R06.02 Shortness of breath (principal) | CPT/HCPCS: 71046 ==

== ENCOUNTER 2025-03-01 08:42 | Inpatient (IN) | payer OTHER, SELFPAY ==
[2025-03-01] VITALS (15 sets, daily range): BP systolic 125–156; BP diastolic 61–92; PULSE 75–100; RESP 15–24; TEMP 36.6–36.9; O2SAT 93–99; BMI 44.9
--- NOTE | ~2025-03-01 | XR_ITS ---
EXAMINATION: XR CHEST CLINICAL INFORMATION: SOB COMPARISON: 02/26/2025, 11/21/2024. TECHNIQUE: Frontal view of the chest was obtained. FINDINGS: The cardiac, hilar, and mediastinal contours are normal. There is a prominent epicardial fat pad. The lungs are mildly hyperaerated, however clear bilaterally. There is no pneumothorax or pleural effusion. There is no focal osseous or soft tissue abnormality. XR/XR chest 1V IMPRESSION: No active pulmonary disease. Electronically signed by: Mesfin Cueva MD 03/01/2025 10:00 AM EDT
--- NOTE | ~2025-03-01 | CT_ITS ---
EXAMINATION: CT ABDOMEN AND PELVIS WITH CONTRAST CLINICAL INFORMATION: Left lower quadrant abdominal pain. COMPARISON: October 04, 2024. TECHNIQUE: Multidetector volumetric images were obtained from the superior aspect of the liver through the pubic symphysis following administration 100 mL of Omnipaque 350 intravenous contrast. Sagittal and coronal reformatted images were obtained on the technologist's workstation. Oral contrast: No This CT examination was performed using dose optimization techniques as appropriate, variously including the following: *Automated exposure control *Adjustment of mA and/or kV according to patient size (this includes techniques or standardized protocols for targeted exams where dose is matched to indication/reason for exam; i.e. extremities or head) *Use of iterative reconstruction technique DLP: 1069 mGy centimeter. FINDINGS: LUNG BASES: Linear and patchy opacities, nonspecific. LIVER, GALLBLADDER, AND BILIARY TREE: Liver measures 15 cm. No focal mass. Main portal vein and hepatic veins are patent. No pericholecystic fluid collection or gallbladder wall thickening. No intrahepatic or extrahepatic biliary ductal dilatation. PANCREAS: No focal mass. No peripancreatic fluid collection. No main pancreatic ductal dilatation. SPLEEN: 5 cm. No focal lesion. Probable small accessory spleens. ADRENAL GLANDS: No nodular lesions. KIDNEYS AND URETERS: Right kidney: No gross hydronephrosis or nephrolithiasis. No gross renal mass. No dilatation of the right ureter. Left kidney: There is a cluster of 2 mm calculi in the distal left ureter. Mild dilatation of the left ureter and left pelvicalyceal system. There is decreased enhancement pattern throughout the renal parenchyma asymmetric when compared with its contralateral side. There is mild perinephric edema pattern without fluid collections. BLADDER: Fluid-filled nearly collapsed. GASTROINTESTINAL TRACT: Appendix is normal. Scattered diverticula, left hemicolon. Abundant stool, large intestine. No intestinal obstruction pattern. No pneumatosis intestinalis. Gas and fecal material distal ileal loops. No ascites. No pneumoperitoneum. No peripheral enhancing fluid collections, peritoneal cavity. Sutures at the sigmoid colon likely prior resection and primary anastomosis. ABDOMINAL WALL: There are multiple different sizes abdominal wall defect in the periumbilical, supraumbilical and epigastric, the largest in the epigastric region with herniated omental fat and mild edema pattern. LYMPH NODES: Nonspecific mildly prominent mesenteric and retroperitoneum and inguinal. VASCULAR: Mixed plaques throughout the abdominal aorta wall and iliac arteries without gross aneurysm or dissection. PELVIC VISCERA: Dystrophic calcifications in a small/diminutive prostate gland with perhaps prior surgery. OSSEOUS STRUCTURES: Multilevel thoracolumbar spondylosis. Grade 1 retrolisthesis L4-5, L5-S1 and likely L3-4 levels. Sclerosis and the sacroiliac joints, bilaterally. CT/CT abdomen pelvis w IV con IMPRESSION: Cluster of 2 mm obstructing calculus distal left ureter resulting in mild left hydroureteronephrosis and questionable superimposed acute inflammatory process/pyelonephritis. Fleischner guidelines were followed. Electronically signed by: Ted Sullivan MD 03/01/2025 11:08 AM EDT
--- NOTE | 2025-03-01 09:06 | ED.ABDPAIN ---
HPI - Abdominal Pain General Chief Complaint: Abdominal Pain Stated Complaint: Diverticulitis Time Seen by Provider: 03/01/25 09:12 Source: patient and RN notes reviewed Mode of arrival: ambulatory Limitations: no limitations History of Present Illness ED Provider: Michele Rosado PA-C HPI narrative: 59-year-old male with medical history of obesity, T2DM, COPD, HTN, GERD, diverticulitis s/p colostomy w/reversal in 2021, presents to the ED due to LLQ abdominal pain that started around 5:00 a.m. this morning. Patient states he had a sharp constant pain in the LLQ abdominal area that feels similar to diverticulitis pain in the past, has had multiple episodes of vomiting since waking this morning. Patient states this pain was accompanied by sharp chest pain that lasted approximately 2 3 minutes with episode of diaphoresis earlier this morning. Chest pain has now resolved. Patient states he was experiencing an increased sensation of SOB after waking up, used albuterol, Combivent, Anoro inhalers without effect. Additionally patient reports bilateral blurry vision that began with abdominal pain this morning. Patient is on 2 L O2 at baseline, states he used his BiPAP and oxygen last night. Patient reports he was seen in this department approximately 6 weeks ago and was diagnosed with right-sided Falk's palsy, patient is still experiencing facial paralysis. Patient states he has seen his PCP has [facility] [place] neuro consult in March for further evaluation. Denies fevers, chills, diarrhea, black/tarry stool, hematemesis, cough, dizziness/lightheadedness, headache Related Data Home Medications ?Medication ?Instructions ?Recorded ?Confirmed acetaminophen 500 mg tablet 1,000 mg PO DAILY PRN Pain 12/09/23 02/18/25 albuterol sulfate 90 mcg/actuation 2 inh inhalation Q4H PRN shortness 12/09/23 02/18/25 aerosol inhaler of breath or wheezing polyethylene glycol 3350 17 17 g PO BEDTIME 12/09/23 02/18/25 gram/dose oral powder (Miralax) hydrochlorothiazide 25 mg tablet 25 mg PO DAILY 01/22/24 02/18/25 calcium carbonate 550 mg-magnesium 3 - 4 tab PO Q2H PRN Heartburn 11/21/24 02/18/25 hydroxide 110 mg chewable tablet theophylline 400 mg 400 mg PO DAILY@0800 11/21/24 02/18/25 tablet,extended release 24 hr Previous Rx's ?Medication ?Instructions ?Recorded CPAP (CPAP Machine/Device) #1 ea 01/24/24 furosemide 40 mg tablet 40 mg PO DAILY #90 tabs 07/13/24 umeclidinium 62.5 mcg-vilanterol 1 ea PO DAILY #60 ea 01/07/25 25 mcg/actuation powdr for inhalation (Anoro Ellipta) carboxymethylcellulose sodium 1 % 2 drp ophthalmic-Right QID #15 mL 01/16/25 eye drops (Artificial Tears (carboxymethylcellulose)) ipratropium 20 mcg-albuterol 100 1 puff inhalation Q6H #1 ea 02/13/25 mcg/actuation mist for inhalation (Combivent Respimat) ipratropium 0.5 mg-albuterol 3 mg 3 ml inhalation Q4-6H PRN wheezing 02/25/25 (2.5 mg base)/3 mL nebulization #180 mL soln prednisone 20 mg tablet 40 mg (2 x 20 mg) PO DAILY 4 days 02/26/25 #8 tabs Allergies Allergy/AdvReac Type Severity Reaction Status Date / Time No Known Allergies Allergy Unknown Verified 03/01/25 09:08 Review of Systems Review of Systems CONST: Negative for fever, body aches and chills. HENT: Negative for neck pain/stiffness, headache, congestion, sore throat, swelling. EYES: Negative for discharge/pain or vision changes. POS blurry vision RESP: Negative for cough/hemoptysis. POS SOB CV: Negative chest pain, difficulty breathing, palpitations. ABD: POS left side abd pain, nausea, vomiting. : Negative increase frequency, dysuria, blood in urine or stool. MUSC: Negative for muscle aches, edema. SKIN: Negative rash, lesions/sores. NEURO: Negative headache, dizziness, weakness. Yes all other systems are reviewed and are negative [facility] Past Medical History Medical History (Updated 03/01/25 @ 13:06 by Ashlee Bautista PA-C) Morbid obesity Diabetes mellitus KIRILL (obstructive sleep apnea) Smoker COPD (chronic obstructive pulmonary disease) HTN (hypertension) Acid reflux Diverticulitis Surgical History Hx of colonoscopy History of colostomy reversal H/O colostomy Family History Family History Mother Diabetes Arthritis Sleep apnea COPD (chronic obstructive pulmonary disease) Father Stomach cancer Diabetes Arthritis Sister Arthritis Social History Social History (Updated 01/07/25 @ 10:00 by Dk Braden) Household Members: Spouse and Children Household Members Other:: and kid Housing: Apartment Housing Other:: 4th floor Do you presently have visiting nurse or other home services: No Unable to assess alcohol history related to: Unknown Alcohol intake: former Comment: at bedside Patient Tobacco Use Status: Former Tobacco user Tobacco use type: Cigarette Cigarette Packs Per Day: 1 Cigarettes Per Day: 13 Years Smoked: 60 Smoked in Last 30 Days: No e-Cigarette/Vaping Use: Never Used Second Hand Smoke Exposure: No Use of substances other than those prescribed or required for medical reasons: Unknown Advance Directives: Yes Advance Directives on File: Yes Advance Directives Date on File: 01/17/24 Do you have a plan to hurt others: No Plan service: No Current occupational status: employed 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[employer] Physical Exam ED Vital Signs: Vital Signs - 24 hr 03/01/25 09:06 03/01/25 09:16 03/01/25 09:47 Temperature 97.8 F 97.9 F Pulse Rate 100 94 78 Respiratory Rate 24 H 19 22 H Blood Pressure 125/63 126/61 Pulse Oximetry 94 93 Oxygen Delivery Method Room Air Room Air Oxygen Flow Rate 03/01/25 10:12 03/01/25 10:50 03/01/25 12:00 Temperature Pulse Rate 95 90 90 Respiratory Rate 20 20 19 Blood Pressure 126/61 132/63 156/89 H Pulse Oximetry 97 Oxygen Delivery Method Nasal Cannula Nasal Cannula Oxygen Flow Rate 2 2 03/01/25 12:01 Temperature Pulse Rate Respiratory Rate 19 Blood Pressure Pulse Oximetry Oxygen Delivery Method Oxygen Flow Rate BMI result Body Mass Index 44.9 GENERAL APPEARANCE: ?AxOx4, in no acute distress. HEENT: ?NC, AT. MMM. EOMI, clear conjunctiva, oropharynx clear. NECK: ?Supple without lymphadenopathy.? No stiffness or restricted ROM. HEART:? Normal rate and regular rhythm, normal S1/S2, no m/r/g LUNGS:? Diminished breath sounds throughout all lung joseph, without expiratory wheeze, crackles, rales ABDOMEN: Large rotund abdomen, somewhat distended, reducible umbilical hernia, diffusely tender, no overlying skin changes, with well-healed scars of midline abdomen. BACK: L CVAT, no obvious deformity. EXTREMITIES: ?Without cyanosis, clubbing or edema. No pain with palpation of bilateral calves, no pitting edema, NEUROLOGICAL: ?Grossly nonfocal. Alert and oriented, moving all 4 extremities. Patient with drooping of right side of face, includes eyebrow, slurred speech, patient recently diagnosed with Falk's palsy, no other neurological deficits noted. Strength 3/5 of upper and lower extremities due to pain. Skin: ?Warm and dry without any rash. Course Course Course Narrative: 59 yo male with PMH of GERD, diverticulitis, COPD, respiratory failure here with c/o abdominal pain x 5am with n/v. Pos diarrhea. He has hx of same in past feels like his diverticulitis. He walked into triage very short of breath appeared short of breath with active vomiting. Labs, CT scan ordered this is a RAPID medical screening exam the rest of the history and physical exam is to be done by the main provider. MANJINDER 03/01/25 908am Medical Decision Making Medical Decision Making MDM Narrative: 59-year-old male with medical history of obesity, T2DM, COPD, HTN, GERD, diverticulitis s/p colostomy w/reversal in 2021, presents to the ED due to LLQ abdominal pain that started around 5:00 a.m. this morning. Patient states he had a sharp constant pain in the LLQ abdominal area that feels similar to diverticulitis pain in the past, has had multiple episodes of vomiting since waking this morning. Patient states this pain was accompanied by sharp chest pain that lasted approximately 2 3 minutes with episode of diaphoresis earlier this morning. Chest pain has now resolved. Patient states he was experiencing an increased sensation of SOB after waking up, used albuterol, Combivent, Anoro inhalers without effect. Additionally patient reports bilateral blurry vision that began with abdominal pain this morning. Patient is on 2 L O2 at baseline, states he used his BiPAP and oxygen last night. Patient reports he was seen in this department approximately 6 weeks ago and was diagnosed with right-sided Falk's palsy, patient is still experiencing facial paralysis. Patient states he has seen his PCP has [facility] [place] [facility] neuro consult in March for further evaluation. VSS, BP of 126/61, pulse rate of 94, 19 breaths per minute, patient afebrile with oral temp of 97.9?, O2 saturation 93% on room air. Patient uses 2 L O2 at baseline, O2 saturation at 98% on 2 L NC. Patient has drooping of the right side of face with loss of nasolabial fold, includes eyebrow, patient with recent Falk's palsy diagnosis (01/19/2025) no other neurological deficits noted. Lungs with diminished breath sounds throughout all lung joseph without crackles, rales, rhonchi, cardiac exam reveals normal rate and rhythm, no murmurs/rubs/gallops. Abdomen is quite large and rotund, somewhat distended, there is a reducible hernia of the umbilicus, without overlying skin changes, abdomen is diffusely tender to palpation. No pitting edema of the lower extremities, no calf TTP. EKG reveals normal sinus rhythm, no ST-elevation/depression, on comparison from prior on 02/26/2025 QT has lengthened, initial troponin Plan for labs, CXR, CT abdomen, UA, bronchodilator protocol Course 10:40- Labs revealed leukocytosis of 14.8, H and H stable, no electrolyte abnormality, no anion gap, serum glucose is 121, VBG reveals elevated HC03, however this is around patient's baseline- less likely DKA/electrolyte abnormality D-dimer negative at 194, no calf TTP, no tachypnea, no tachycardia- Less likely PE CXR without cardiomegaly, infiltrates. BNP WNL, no evidence of fluid overload on physical exam- Less likely COPD exacerbation/CHF UA- 3+ urine blood, greater than 20 urine RBCs, without leukocyte esterase, urine nitrites, urine bacteria, 0-2 squamous epithelial cells- less likely UTI Patient states SOB has improved after albuterol treatment with respiratory therapy. Patient states pain has mildly improved after being medicated with 4 g morphine. Awaiting results of CT abdomen and pelvis. 12:56- Patient has received 4 mg morphine x2 for pain management. Patient states pain meds are not relieving pain at this time. CT abdomen and pelvis reveals a cluster of 2 mm obstructive stones of the left ureter, L hydroureternephrosis, and questionable superimposed acute inflammatory process/pyelonephritis. Patient does not meet sepsis criteria at this time. Will initiate 1 g IV ceftriaxone for empirical coverage. I reached out to Urologist Dr. Almodovar who recommended tamsulosin, 20mg prednisone and additonal fluids. I spoke with Hospitalist ALISON Ramirez who will admit the patient to medicine. Patient is aware of the plan and is in agreement. Differential Diagnosis Differential Diagnoses: The differential diagnosis associated with the presentation includes ACS PE COPD exacerbation CHF Acute abdomen Diverticulosis Nephrolithiasis Admission/Observation Consideration of admission/observation: Escalation of care including admission/observation considered Consult Healthcare Provider Management of the patient was discussed with: Hospitalist (Hospitalist ALISON Ramirez) and Fiber Designer (Dr. Almodovar) I spoke with urologist Dr. Almodovar who recommended tamsulosin, 20 mg prednisone, additional fluids. I spoke with hospitalist ALISON Ramirez who will admit to medicine Lab Data MDM Lab Attestation statement: I reviewed the patient's lab results. 03/01/25 09:41 03/01/25 09:41 Labs: Lab Results 03/01/25 03/01/25 03/01/25 Range/Units 09:41 09:47 11:39 WBC 14.8 H (4.8-10.8) X10*3/uL RBC 4.77 (4.60-5.80) X10*6/uL Hgb 13.8 L (14.0-18.0) g/dl Hct 41.5 L (42.0-52.0) % MCV 87.0 (80.0-98.0) fL MCH 28.9 (27.0-33.0) pg MCHC 33.3 (31.0-36.0) g/dl RDW 15.9 (11.0-16.0) % Plt Count 336 (160-400) X10*3/uL MPV 9.7 (9.4-12.4) fL Immature Gran % (Auto) 0.7 H (0.0-0.4) % Neut % (Auto) 71.3 (45-73) % Lymph % (Auto) 18.1 L (20-40) % Sac % (Auto) 9.1 (2-11) % Eos % (Auto) 0.4 (0-4) % Baso % (Auto) 0.4 (0-2) % Lymph # (Auto) 2.7 (1.2-4.9) X10*3/uL Sac # (Auto) 1.4 H (0.1-1.2) X10*3/uL Eos # (Auto) 0.1 (0.0-0.4) X10*3/uL Baso # (Auto) 0.1 (0.0-0.2) X10*3/uL Abs Immat Gran (auto) 0.11 H (0.00-0.03) X10*3/uL Absolute Neuts (auto) 10.5 H (2.0-8.3) x10*3/uL Absolute Nucleated RBC 0.000 (0.0-0.012) X10*3/uL Nucleated RBC % (auto) 0.0 (0.0-0.2) /100WBC D-Dimer High Sensitivty 194 NG/ML VBG pH 7.38 (7.32-7.43) VBG pCO2 55 mmHg VBG pO2 54 mmHg VBG HCO3 33 H (22-26) mmol/L VBG O2 Saturation 83.0 % VBG Base Excess 6.5 mmol/L Sodium 142 (135-145) mmol/L Potassium 3.7 (3.3-5.1) mmol/L Chloride 105 (96-108) mmol/L Carbon Dioxide 29 (22-29) mmol/L Anion Gap 12 (12-20) BUN 19 H (9-16) mg/dL Creatinine 0.99 (0.5-1.4) mg/dL Estim Creat Clear Calc 113.6 Estimated GFR > 60 Random Glucose 121 H (60-115) mg/dL Calcium 8.7 (8.4-10.2) mg/dL Magnesium 1.8 (1.6-2.6) mg/dL Total Bilirubin 0.2 (0.0-1.0) mg/dL Direct Bilirubin < 0.2 (0.0-0.5) mg/dL AST 19 (5-37) U/L ALT 16 (0-40) U/L Alkaline Phosphatase 93 (39-117) U/L Troponin I High Sens 2.8 (<3.5-35.0) ng/L B-Natriuretic Peptide < 10 (<100) pg/mL Total Protein 7.1 (6.5-8.0) g/dL Albumin 3.7 (3.5-5.0) g/dL Lipase 13 (8-78) U/L Urine Color Yellow Urine Appearance Clear Urine pH 6.5 (5.0-9.0) Ur Specific [place] >= 1.030 H (1.005-1.025) Urine Protein Negative (Neg-Trace) mg/dL Urine Glucose (UA) Negative (Negative) mg/dL Urine Ketones Negative (Negative) mg/dL Urine Blood Large (3+) H (Negative) Urine Nitrite Negative (Negative) Ur Leukocyte Esterase Negative (Negative) Urine RBC >20 H (0-2) /HPF Urine WBC 0-5 (0-5) /HPF Ur Squamous Epith Cells 0-2 (0-2) /HPF Urine Bacteria None Seen (None Seen) Hyaline Casts 0-2 (0-2) /LPF Independent Interpretation I performed an independent interpretation of an: EKG Interpretation: I personally interpreted the EKG which reveals normal sinus rhythm without ST elevation/depression, QT has lengthened when compared with prior. Vent. Rate : 95 BPM Atrial Rate : 95 BPM P-R Int : 150 ms QRS Dur : 82 ms QT Int : 370 ms P-R-T Axes : 49 18 45 degrees QTcB Int : 464 ms Normal sinus rhythm Inferior infarct , age undetermined Abnormal ECG When compared with ECG of 26-Feb-2025 07:17, QT has lengthened I personally interpreted the CXR with no evidence of pneumothorax, pleural effusions, pleural edema, infiltrates, I agree with the radiologist's interpretation Radiology Impression Discussion of test interpretation with radiology: I have reviewed the radiologist's reading. Radiologist Impression: CT abdomen and pelvis FINDINGS: LUNG BASES: Linear and patchy opacities, nonspecific. LIVER, GALLBLADDER, AND BILIARY TREE: Liver measures 15 cm. No focal mass. Main portal vein and hepatic veins are patent. No pericholecystic fluid collection or gallbladder wall thickening. No intrahepatic or extrahepatic biliary ductal dilatation. PANCREAS: No focal mass. No peripancreatic fluid collection. No main pancreatic ductal dilatation. SPLEEN: 5 cm. No focal lesion. Probable small accessory spleens. ADRENAL GLANDS: No nodular lesions. KIDNEYS AND URETERS: Right kidney: No gross hydronephrosis or nephrolithiasis. No gross renal mass. No dilatation of the right ureter. Left kidney: There is a cluster of 2 mm calculi in the distal left ureter. Mild dilatation of the left ureter and left pelvicalyceal system. There is decreased enhancement pattern throughout the renal parenchyma asymmetric when compared with its contralateral side. There is mild perinephric edema pattern without fluid collections. BLADDER: Fluid-filled nearly collapsed. GASTROINTESTINAL TRACT: Appendix is normal. Scattered diverticula, left hemicolon. Abundant stool, large intestine. No intestinal obstruction pattern. No pneumatosis intestinalis. Gas and fecal material distal ileal loops. No ascites. No pneumoperitoneum. No peripheral enhancing fluid collections, peritoneal cavity. Sutures at the sigmoid colon likely prior resection and primary anastomosis. ABDOMINAL WALL: There are multiple different sizes abdominal wall defect in the periumbilical, supraumbilical and epigastric, the largest in the epigastric region with herniated omental fat and mild edema pattern. LYMPH NODES: Nonspecific mildly prominent mesenteric and retroperitoneum and inguinal. VASCULAR: Mixed plaques throughout the abdominal aorta wall and iliac arteries without gross aneurysm or dissection. PELVIC VISCERA: Dystrophic calcifications in a small/diminutive prostate gland with perhaps prior surgery. OSSEOUS STRUCTURES: Multilevel thoracolumbar spondylosis. Grade 1 retrolisthesis L4-5, L5-S1 and likely L3-4 levels. Sclerosis and the sacroiliac joints, bilaterally. CT/CT abdomen pelvis w IV con IMPRESSION: Cluster of 2 mm obstructing calculus distal left ureter resulting in mild left hydroureteronephrosis and questionable superimposed acute inflammatory process/pyelonephritis. Fleischner guidelines were followed. Electronically signed by: Ted Sullivan MD 03/01/2025 11:08 AM EDT Dictated By: Ted Segura MD Signed By: <Electronically signed by Ted Kwok MD in [place]> 03/01/25 1108 CXR FINDINGS: The cardiac, hilar, and mediastinal contours are normal. There is a prominent epicardial fat pad. The lungs are mildly hyperaerated, however clear bilaterally. There is no pneumothorax or pleural effusion. There is no focal osseous or soft tissue abnormality. XR/XR chest 1V IMPRESSION: No active pulmonary disease. Electronically signed by: Mesfin Cueva MD 03/01/2025 10:00 AM EDT Dictated By: Mesfin Cueva MD Signed By: <Electronically signed by Mesfin Cueva MD in [place]> 03/01/25 1000 External Record Review External record reviewed: Inpatient record, Office record and Outpatient record Chronic Conditions Patient?s care impacted by: Diabetes, Hypertension and Other (COPD, KIRILL, GERD) Medications Administered Discontinued Medications Generic Name Dose Route Start Last Admin Trade Name Freq PRN Reason Stop Dose Admin Albuterol Sulfate 5 mg/ 0 mg 03/01/25 09:44 03/01/25 09:46 Albuterol/Ipratropium 3 ml INHALE 03/01/25 09:45 1 each ONCE ONE Administration Lactated Ringer's 1,000 mls @ 999 mls/hr 03/01/25 09:53 03/01/25 11:50 Lr IV 03/01/25 10:53 Infused .Q1H1M ONE Infusion Iohexol 100 ml 03/01/25 10:35 03/01/25 10:36 Iohexol 350 Mg/Ml 100 Ml Infus..Btl IV 03/01/25 10:36 100 ml ONCE ONE Administration Morphine Sulfate 4 mg 03/01/25 09:53 03/01/25 10:15 Morphine Sulfate 4 Mg/Ml Cartridge IVPUSH 03/01/25 09:54 4 mg ONCE ONE Administration Protocol Morphine Sulfate 4 mg 03/01/25 11:39 03/01/25 12:01 Morphine Sulfate 4 Mg/Ml Cartridge IVPUSH 03/01/25 11:40 4 mg ONCE ONE Administration Protocol Ondansetron HCl 4 mg 03/01/25 09:53 03/01/25 10:15 Ondansetron Hcl 4 Mg/2 Ml Vial IVPUSH 03/01/25 09:54 4 mg ONCE ONE Administration Discharge Plan Discharge Clinical Impression: Pyelonephritis Patient Disposition: Admitted As Inpatient Print Language: Moldovan
--- NOTE | 2025-03-01 09:08 | ECG_ITS ---
Test Reason : DYSPNEA Blood Pressure : */* mmHG Vent. Rate : 95 BPM Atrial Rate : 95 BPM P-R Int : 150 ms QRS Dur : 82 ms QT Int : 370 ms P-R-T Axes : 49 18 45 degrees QTcB Int : 464 ms Normal sinus rhythm Inferior infarct , age undetermined Abnormal ECG When compared with ECG of 26-Feb-2025 07:17, QT has lengthened Referred By: Roxann Robins Electronically Signed By: RANJAN WANG
[2025-03-01 09:46] LABS: MANUAL DIFF FLAG NO
[2025-03-01] MEDS: Albuterol Sulfate 5 MG, Albuterol/Iprat 2.5/0.5MG 3 ML 3 ML INHALE (09:46)
[2025-03-01 09:48] LABS: Hematocrit 41.5 % (42.0-52.0); Hemoglobin 13.8 g/dl (14.0-18.0); Imm Gran Abs Auto 0.11 X10*3/uL (0.00-0.03); Imm Gran Pct Auto 0.7 % (0.0-0.4); Lymphocytes Absolute Auto 2.7 X10*3/uL (1.2-4.9); Mean Corpuscular HGB Conc 33.3 g/dl (31.0-36.0); Mean Corpuscular Hemoglobin 28.9 pg (27.0-33.0); Mean Corpuscular Volume 87.0 fL (80.0-98.0); NRBC Abs Auto 0.000 X10*3/uL (0.0-0.012); NRBC Pct Auto 0.0 /100WBC (0.0-0.2); Platelet Count 336 X10*3/uL (160-400); Red Blood Count 4.77 X10*6/uL (4.60-5.80); White Blood Count 14.8 X10*3/uL (4.8-10.8)
[2025-03-01 09:55] LABS: D Dimer High Sensitivity 194 NG/ML
[2025-03-01 09:56] LABS: VBG HCO3 33 mmol/L (22-26); VBG O2 % Saturation 83.0 %
[2025-03-01 09:57] LABS: Venous Blood Gas Refer to POC result
[2025-03-01 10:06] LABS: Alanine Aminotransferase 16 U/L (0-40); Albumin Level 3.7 g/dL (3.5-5.0); Alkaline Phosphatase 93 U/L (39-117); Anion Gap 12 (12-20); Aspartate Amino Transferase 19 U/L (5-37); Blood Urea Nitrogen 19 mg/dL (9-16); Calcium 8.7 mg/dL (8.4-10.2); Carbon Dioxide 29 mmol/L (22-29); Chloride 105 mmol/L (96-108); Creatinine Clr Calc Pharmacy 113.6; Estimated Glomerular Filt Rate > 60; Lipase 13 U/L (8-78); Magnesium 1.8 mg/dL (1.6-2.6); Potassium 3.7 mmol/L (3.3-5.1); Sodium 142 mmol/L (135-145); Total Protein 7.1 g/dL (6.5-8.0)
[2025-03-01 10:09] LABS: B Type Natriuretic Peptide < 10 pg/mL (<100)
[2025-03-01] MEDS: Lactated Ringers 1,000 ML 999 ML IV ×2 (10:12→14:28)
[2025-03-01] MEDS: iohexoL 350 MG/ML 100 ML INFUS..BTL IV (10:36)
[2025-03-01 11:11] LABS: Troponin-I High Sensitivity 2.8 ng/L (<3.5-35.0)
[2025-03-01 11:48] LABS: Appearance Urine Clear; Glucose Urine UA Negative (Negative); PH 6.5 (5.0-9.0); Specific Gravity - Urine >= 1.030 (1.005-1.025); UMIC TRIGGER UACC YES
--- NOTE | 2025-03-01 13:25 | PM.IMHP ---
History of Present Illness Date of Service: 03/01/25 Attending physician on admission: Zaheer Christianson Chief Complaint: Abdominal pain, shortness of breath This is a 59-year-old male with a history of hypercarbic respiratory failure, morbid obesity who presents to the emergency department with shortness of breath and left-sided abdominal pain. Patient reports he began having left-sided abdominal pain with radiation to his back this morning. He had multiple episodes of vomiting prior to arrival in the emergency department. He denies any urinary symptoms, fever, chills. He also reports shortness of breath starting at the same time, denies any significant cough. In the emergency department he had a CAT scan of the abdomen and pelvis which showed a cluster of 2 mm obstructing calculus distal left ureter resulting in mild left hydroureteronephrosis questionable superimposed acute inflammatory process/pyelonephritis. Chest x-ray was unremarkable. Lab work was significant for leukocytosis of 4.8, lactic acid within normal limits. Blood cultures were obtained and patient was started on IV ceftriaxone. He required multiple doses of IV morphine for pain control. The case was discussed with the urologist who recommended starting Flomax and giving a dose of prednisone. For his breathing he received breathing treatments and he is beginning to feel better from that perspective. Patient will be admitted for further management Review of Systems Review of Systems: Yes all other systems are reviewed and are negative Constitutional: Constitutional: Denies chills and Denies fever(s) ENT: Denies dizziness Cardiovascular: Cardiovascular: Denies chest pain and Reports dyspnea Respiratory: Respiratory: Denies cough and Reports dyspnea Gastrointestinal: Gastrointestinal: Reports abdominal pain, Denies diarrhea and Reports vomiting Neurologic: Denies dizziness [facility] Medical History Morbid obesity Diabetes mellitus KIRILL (obstructive sleep apnea) Smoker COPD (chronic obstructive pulmonary disease) HTN (hypertension) Acid reflux Diverticulitis Family History Mother Diabetes Arthritis Sleep apnea COPD (chronic obstructive pulmonary disease) Father Stomach cancer Diabetes Arthritis Sister Arthritis Surgical History Hx of colonoscopy History of colostomy reversal H/O colostomy Social History Household Members: Spouse and Children Household Members Other:: and kid Housing: Apartment Housing Other:: 4th floor Do you presently have visiting nurse or other home services: No Unable to assess alcohol history related to: Unknown Alcohol intake: former Comment: at bedside Patient Tobacco Use Status: Former Tobacco user Tobacco use type: Cigarette Cigarette Packs Per Day: 1 Cigarettes Per Day: 13 Years Smoked: 60 Smoked in Last 30 Days: No e-Cigarette/Vaping Use: Never Used Second Hand Smoke Exposure: No Use of substances other than those prescribed or required for medical reasons: Unknown Advance Directives: Yes Advance Directives on File: Yes Advance Directives Date on File: 01/17/24 Do you have a plan to hurt others: No Plan Nutrition Risks: No Nutritional Risk service: No Current occupational status: employed Current occupation: [employer] Allergies Allergy/AdvReac Type Severity Reaction Status Date / Time No Known Allergies Allergy Unknown Verified 03/01/25 09:08 Active Medications: Current Medications Acetaminophen (Acetaminophen 325 Mg Tablet) 650 mg PO Q6H PRN PRN Reason: Pain, Mild 1-3,fever,headache Calcium Carbonate (Calcium Carbonate 750 Mg Tab.Chew) 750 mg PO Q4H PRN PRN Reason: Heartburn Lactated Ringer's (Lr) 1,000 mls @ 999 mls/hr IV .Q1H1M ONE Stop: 03/01/25 14:06 Magnesium Hydroxide (Milk Of Magnesia 30 Ml Oral.Susp) 30 ml PO DAILY PRN PRN Reason: Constipation Melatonin (Melatonin 3 Mg Tablet) 6 mg PO BEDTIME PRN PRN Reason: Insomnia Sodium Chloride (0.9 % Sodium Chloride Flush 3 Ml Syringe) 3 ml IVFLUSH QSHIFT [facility] Tamsulosin HCl (Tamsulosin Hcl 0.4 Mg Capsule) 0.4 mg PO DAILY [facility] Home Medications ?Medication ?Instructions ?Recorded ?Confirmed ?Last Taken ?Type acetaminophen 500 mg tablet 1,000 mg PO DAILY PRN Pain 12/09/23 03/01/25 11/20/24 History albuterol sulfate 90 mcg/actuation 2 inh inhalation Q4H PRN shortness 12/09/23 03/01/25 11/21/24 History aerosol inhaler of breath or wheezing polyethylene glycol 3350 17 17 g PO BEDTIME 12/09/23 03/01/2502/28/25 History gram/dose oral powder (Miralax) hydrochlorothiazide 25 mg tablet 25 mg PO DAILY 01/22/24 03/01/25 03/01/25 History calcium carbonate 550 mg-magnesium 3 - 4 tab PO Q2H PRN Heartburn 11/21/24 03/01/25 11/20/24 History hydroxide 110 mg chewable tablet theophylline 400 mg 400 mg PO DAILY@0800 11/21/24 03/01/25 03/01/25 History tablet,extended release 24 hr semaglutide (weight loss) 0.25 0.25 mg subcut WE 03/01/25 03/01/25 2 Weeks Ago History mg/0.5 mL subcutaneous pen ~02/15/25 injector (Tony) Physical Exam Vital Signs and Narrative: Vital Signs: Last Vital Signs Temp 97.9 F 03/01/25 09:16 Pulse 90 03/01/25 12:00 Resp 19 03/01/25 12:01 BP 156/89 H 03/01/25 12:00 Pulse Ox 97 03/01/25 10:12 O2 Del Method Nasal Cannula 03/01/25 12:00 O2 Flow Rate 2 03/01/25 12:00 BMI result Body Mass Index 44.9 Const: General: alert and awake Nutritional Appearance: obese Orientation/consciousness: patient oriented x3 Resp: Other: dim no rales Effort & Inspection: normal respiratory effort, able to speak in complete sentences and no use of accessory muscles Cardio: Rate: regular rate GI: Other: left side tenderness Inspection: Yes obesity Palpation (GI): Soft to palpation : Other: left CVAT Neuro: Other: flattening right nasolabial fold (chronic, recently diagnosed with Falk's palsy) General: patient oriented x3, moves all extremities and CN's II-XI intact bilaterally Results Labs 03/02/25 05:44 03/02/25 05:44 Labs: Laboratory Results - last 24 hr 03/01/25 03/01/25 03/01/25 09:41 09:47 11:39 MCV 87.0 MCH 28.9 MCHC 33.3 RDW 15.9 Plt Count 336 MPV 9.7 Immature Gran % (Auto) 0.7 H Neut % (Auto) 71.3 Lymph % (Auto) 18.1 L [place] % (Auto) 9.1 Eos % (Auto) 0.4 Baso % (Auto) 0.4 Lymph # (Auto) 2.7 [place] # (Auto) 1.4 H Eos # (Auto) 0.1 Baso # (Auto) 0.1 Abs Immat Gran (auto) 0.11 H Absolute Neuts (auto) 10.5 H Absolute Nucleated RBC 0.000 Nucleated RBC % (auto) 0.0 D-Dimer High Sensitivty 194 VBG pH 7.38 VBG pCO2 55 VBG pO2 54 VBG HCO3 33 H VBG O2 Saturation 83.0 VBG Base Excess 6.5 Anion Gap 12 Estim Creat Clear Calc 113.6 Estimated GFR > 60 Random Glucose 121 H Lactic Acid Calcium 8.7 Magnesium 1.8 Total Bilirubin 0.2 Direct Bilirubin < 0.2 AST 19 ALT 16 Alkaline Phosphatase 93 B-Natriuretic Peptide < 10 Total Protein 7.1 Albumin 3.7 Lipase 13 Urine Color Yellow Urine Appearance Clear Urine pH 6.5 Ur Specific [place] >= 1.030 H Urine Protein Negative Urine Glucose (UA) Negative Urine Ketones Negative Urine Blood Large (3+) H Urine Nitrite Negative Ur Leukocyte Esterase Negative Urine RBC >20 H Urine WBC 0-5 Ur Squamous Epith Cells 0-2 Urine Bacteria None Seen Hyaline Casts 0-2 03/01/25 12:53 MCV MCH MCHC RDW Plt Count MPV Immature Gran % (Auto) Neut % (Auto) Lymph % (Auto) [place] % (Auto) Eos % (Auto) Baso % (Auto) Lymph # (Auto) [place] # (Auto) Eos # (Auto) Baso # (Auto) Abs Immat Gran (auto) Absolute Neuts (auto) Absolute Nucleated RBC Nucleated RBC % (auto) D-Dimer High Sensitivty VBG pH VBG pCO2 VBG pO2 VBG HCO3 VBG O2 Saturation VBG Base Excess Anion Gap Estim Creat Clear Calc Estimated GFR Random Glucose Lactic Acid 1.6 Calcium Magnesium Total Bilirubin Direct Bilirubin AST ALT Alkaline Phosphatase B-Natriuretic Peptide Total Protein Albumin Lipase Urine Color Urine Appearance Urine pH Ur Specific [place] Urine Protein Urine Glucose (UA) Urine Ketones Urine Blood Urine Nitrite Ur Leukocyte Esterase Urine RBC Urine WBC Ur Squamous Epith Cells Urine Bacteria Hyaline Casts Imaging Radiologist's Impressions: Impressions Chest X-Ray 03/01/25 08:41 IMPRESSION: No active pulmonary disease. Electronically signed by: Mesfin Cueva MD 03/01/2025 10:00 AM EDT RP Abdomen/Pelvis CT 03/01/25 09:32 IMPRESSION: Cluster of 2 mm obstructing calculus distal left ureter resulting in mild left hydroureteronephrosis and questionable superimposed acute inflammatory process/pyelonephritis. Fleischner guidelines were followed. Electronically signed by: Ted Sullivan MD 03/01/2025 11:08 AM EDT RP Assessment and Plan (1) Pyelonephritis: Status: Acute Plan This is a 59-year-old male with history of COPD/chronic hypoxic and hypercarbic respiratory failure on 2 L of supplemental oxygen, KIRILL on bipap, morbid obesity, Falk's palsy who presents to the emergency department with left-sided abdominal pain found to have obstructing left side stones with pyelonephritis Sepsis due to pyelonephritis with obstructing left ureteral stones resulting in hydroureteronephrosis Met sepsis criteria with heart rate greater than 90 and leukocytosis. Lactic acid within normal limits. No severe features Renal function at baseline Continue IV ceftriaxone Follow urine culture, blood cultures Urology consult Start Flomax Chronic hypoxic and hypercarbic respiratory failure due to underlying COPD Continue baseline 2 L supplemental oxygen and bipap at baseline Reports shortness of breath but denies change in cough Chest x-ray negative P.r.n. and scheduled breathing treatments continue baseline theophylline and formulary equivalent to anoro ellipta complete course of prednisone started outpatient, two days left per pt report T2DM hold wegovy SSI, POCs, ADA diet HTN continue HCTZ hold lasix for now dvt ppx - mechanical devices; hold chemoprophylaxis until eval by urology Patient will likely require 2 midnight stay in the hospital for IV antibiotics and evaluation by specialist due to obstructing left ureteral stones Quality Stroke Does the patient have a stroke diagnosis?: No VTE Prior VTE?: No VTE Risk Level:: Medical - moderate - high VTE Device Contraindication: N/A - Device Ordered VTE Drug Contraindication: N/A - Med Ordered
--- NOTE | 2025-03-01 15:01 | PHA.MEDREC ---
Addendum entered by Lalo Fatima PharmD 03/01/25 15:09: reviewed Original Note: Pharmacy Consult ? Medication Reconciliation Pharmacy has completed the medication reconciliation. Spoke with pt and he confirmed his medication. Pt taking Prenisone 20mg 2 tabs (40mg) daily and confirmed he has 2 doses left. Pt confirmed his Wegovy, stating he takes it on Wednesdays and confirmed he has not taken it in about 2-3 weeks due to his pharmacy not having it in stock.
[2025-03-01] MEDS: Albuterol/Iprat 2.5/0.5MG 3 ML AMPUL.NEB INHALE ×2 (15:41→19:36)
[2025-03-01] MEDS: 0.9 % Sodium Chloride Flush 3 ML SYRINGE IVFLUSH (23:39)
[2025-03-02] VITALS (9 sets, daily range): BP systolic 119–170; BP diastolic 57–115; PULSE 84–101; RESP 12–23; TEMP 36.3–36.9; O2SAT 95–99
[2025-03-02 06:13] LABS: Hematocrit 43.3 % (42.0-52.0); Hemoglobin 13.5 g/dl (14.0-18.0); Mean Corpuscular HGB Conc 31.2 g/dl (31.0-36.0); Mean Corpuscular Hemoglobin 28.5 pg (27.0-33.0); Mean Corpuscular Volume 91.5 fL (80.0-98.0); NRBC Abs Auto 0.000 X10*3/uL (0.0-0.012); NRBC Pct Auto 0.0 /100WBC (0.0-0.2); Platelet Count 348 X10*3/uL (160-400); Red Blood Count 4.73 X10*6/uL (4.60-5.80); White Blood Count 15.1 X10*3/uL (4.8-10.8)
[2025-03-02 06:52] LABS: Anion Gap 15 (12-20); Blood Urea Nitrogen 22 mg/dL (9-16); Calcium 9.0 mg/dL (8.4-10.2); Carbon Dioxide 31 mmol/L (22-29); Chloride 101 mmol/L (96-108); Creatinine Clr Calc Pharmacy 72.5; Estimated Glomerular Filt Rate 46; Potassium 4.5 mmol/L (3.3-5.1); Sodium 142 mmol/L (135-145)
[2025-03-02] MEDS: Albuterol/Iprat 2.5/0.5MG 3 ML AMPUL.NEB INHALE ×3 (07:47→20:12)
[2025-03-02] MEDS: Theophylline Anhydrous ER 400 MG TAB.ER.24H PO (08:53)
--- NOTE | 2025-03-02 09:34 | P.PNIM_ITS ---
Subjective Subjective Date of Service: 03/02/25 Interval History: Scr up to 1.5 c/o L kidney pain no N/V Review of Systems Review of Systems: Yes all other systems are reviewed and are negative Physical Exam 2 Vital Signs: Vital Signs: Last Vital Signs Temp 98.0 F 03/02/25 05:17 Pulse 101 H 03/02/25 08:47 Resp 23 H 03/02/25 08:47 BP 119/83 03/02/25 08:47 Pulse Ox 96 03/02/25 08:47 O2 Del Method Nasal Cannula 03/02/25 08:47 O2 Flow Rate 3 03/02/25 08:47 BMI result Body Mass Index 44.9 Gen: in no acute distress HEENT: sclera anicteric, moist mucus membranes Neck: supple Lungs: clear to auscultation bilaterally Heart: regular rate and rhythm, no murmurs Abd: soft, non-tender, non-distended, obese : L CVA tenderness Ext: no edema Skin: warm/well-perfused Neuro: alert and oriented x3, R Falk's palsy Psych: appropriate affect Objective Data Active Medications Acetaminophen (Acetaminophen 325 Mg Tablet) 650 mg PO Q6H PRN PRN Reason: Pain, Mild 1-3,fever,headache Albuterol/Ipratropium (Albuterol/Iprat 2.5/0.5mg 3 Ml Ampul.Neb) 3 ml INHALE RQ6H WHILE AWAKE [facility] Last Admin: 03/02/25 07:47 Dose: 3 ml Documented By: BHAVYA Albuterol/Ipratropium (Albuterol/Iprat 2.5/0.5mg 3 Ml Ampul.Neb) 3 ml INHALE Q4H PRN PRN Reason: Wheezing Calcium Carbonate (Calcium Carbonate 750 Mg Tab.Chew) 750 mg PO Q4H PRN PRN Reason: Heartburn Ceftriaxone Sodium (Ceftriaxone Sodium 1 Gm Vial) 1 gm IVPUSH Q24H [facility] Hydrochlorothiazide (Hydrochlorothiazide 25 Mg Tablet) 25 mg PO DAILY [facility]; Protocol Last Admin: 03/02/25 08:45 Dose: 25 mg Documented By: DENNIS Sodium Chloride (Ns) 1,000 mls @ 125 mls/hr IVCONT .Q8H [facility] Last Admin: 03/02/25 08:50 Dose: 125 mls/hr Documented By: DENNIS Ketorolac Tromethamine (Ketorolac Tromethamine 15 Mg/Ml Vial) 15 mg IVPUSH Q6H PRN PRN Reason: Pain, Moderate(Pain Scale 4-6) Last Admin: 03/02/25 06:28 Dose: 15 mg Documented By: MARGAUX Magnesium Hydroxide (Milk Of Magnesia 30 Ml Oral.Susp) 30 ml PO DAILY PRN PRN Reason: Constipation Melatonin (Melatonin 3 Mg Tablet) 6 mg PO BEDTIME PRN PRN Reason: Insomnia Non-Formulary Medication (Umeclidinium-Vilanterol [Anoro Ellipta]) 1 each PO DAILY [facility] Omeprazole (Omeprazole 20 Mg Capsule.Dr) 20 mg PO DAILY@0630 [facility] Last Admin: 03/02/25 06:24 Dose: 20 mg Documented By: MARGAUX Ondansetron HCl (Ondansetron Hcl 4 Mg/2 Ml Vial) 4 mg IVPUSH Q6H PRN PRN Reason: Nausea and Vomiting Last Admin: 03/01/25 23:37 Dose: 4 mg Documented By: MARGAUX Polyethylene Glycol (Polyethylene Glycol 3350 17 Gm Powd.Pack) 17 gm PO BEDTIME [facility] Last Admin: 03/01/25 21:26 Dose: 17 gm Documented By: MARGAUX Prednisone (Prednisone 20 Mg Tablet) 40 mg PO DAILY [facility] Last Admin: 03/02/25 08:45 Dose: 40 mg Documented By: DENNIS Sodium Chloride (0.9 % Sodium Chloride Flush 3 Ml Syringe) 3 ml IVFLUSH QSHIFT [facility] Last Admin: 03/02/25 08:54 Dose: Not Given Documented By: DENNIS Non-Admin Reason: IV Running Tamsulosin HCl (Tamsulosin Hcl 0.4 Mg Capsule) 0.4 mg PO DAILY [facility] Last Admin: 03/02/25 08:45 Dose: 0.4 mg Documented By: DENNIS Theophylline (Theophylline Anhydrous Er 400 Mg Tab.Er.24h) 400 mg PO DAILY@0800 [facility] Last Admin: 03/02/25 08:53 Dose: 400 mg Documented By: DENNIS Labs 03/02/25 05:44 03/02/25 05:44 Labs: Laboratory Results - last 24 hr 03/01/25 03/01/2503/01/25 09:41 09:47 11:39 MCV 87.0 MCH 28.9 MCHC 33.3 RDW 15.9 Plt Count 336 MPV 9.7 Immature Gran % (Auto) 0.7 H Neut % (Auto) 71.3 Lymph % (Auto) 18.1 L [place] % (Auto) 9.1 Eos % (Auto) 0.4 Baso % (Auto) 0.4 Lymph # (Auto) 2.7 [place] # (Auto) 1.4 H Eos # (Auto) 0.1 Baso # (Auto) 0.1 Abs Immat Gran (auto) 0.11 H Absolute Neuts (auto) 10.5 H Absolute Nucleated RBC 0.000 Nucleated RBC % (auto) 0.0 D-Dimer High Sensitivty 194 VBG pH 7.38 VBG pCO2 55 VBG pO2 54 VBG HCO3 33 H VBG O2 Saturation 83.0 VBG Base Excess 6.5 Anion Gap 12 Estim Creat Clear Calc 113.6 Estimated GFR > 60 Random Glucose 121 H Lactic Acid Calcium 8.7 Magnesium 1.8 Total Bilirubin 0.2 Direct Bilirubin < 0.2 AST 19 ALT 16 Alkaline Phosphatase 93 B-Natriuretic Peptide < 10 Total Protein 7.1 Albumin 3.7 Lipase 13 Urine Color Yellow Urine Appearance Clear Urine pH 6.5 Ur Specific [place] >= 1.030 H Urine Protein Negative Urine Glucose (UA) Negative Urine Ketones Negative Urine Blood Large (3+) H Urine Nitrite Negative Ur Leukocyte Esterase Negative Urine RBC >20 H Urine WBC 0-5 Ur Squamous Epith Cells 0-2 Urine Bacteria None Seen Hyaline Casts 0-2 03/01/25 03/02/25 12:53 05:44 MCV 91.5 MCH 28.5 MCHC 31.2 RDW 16.3 H Plt Count 348 MPV 9.5 Immature Gran % (Auto) Neut % (Auto) Lymph % (Auto) [place] % (Auto) Eos % (Auto) Baso % (Auto) Lymph # (Auto) [place] # (Auto) Eos # (Auto) Baso # (Auto) Abs Immat Gran (auto) Absolute Neuts (auto) Absolute Nucleated RBC 0.000 Nucleated RBC % (auto) 0.0 D-Dimer High Sensitivty VBG pH VBG pCO2 VBG pO2 VBG HCO3 VBG O2 Saturation VBG Base Excess Anion Gap 15 Estim Creat Clear Calc 72.5 Estimated GFR 46 Random Glucose 79 Lactic Acid 1.6 Calcium 9.0 Magnesium Total Bilirubin Direct Bilirubin AST ALT Alkaline Phosphatase B-Natriuretic Peptide Total Protein Albumin Lipase Urine Color Urine Appearance Urine pH Ur Specific [place] Urine Protein Urine Glucose (UA) Urine Ketones Urine Blood Urine Nitrite Ur Leukocyte Esterase Urine RBC Urine WBC Ur Squamous Epith Cells Urine Bacteria Hyaline Casts Assessment and Plan (1) Pyelonephritis: Status: Acute Plan d2, 59yo M with COPD + KIRILL, chronic hypoxia/hypercarbia on 2L O2 + BiPAP, obesity, Falk's palsy presenting with L flank pain, found to have obstructing L ureteral stones with hydroureteronephrosis and pyelonephritis sepsis due to pyelonephritis from obstructing left ureteral stones resulting in hydroureteronephrosis - ceftriaxone 03/01, follow BCx + UCx, Urology consult pending, on prednisone + tamsulosin chronic hypoxic + hypercarbic respiratory failure due to COPD + KIRILL - 2L O2, BiPAP, theophylline, Anoro, nebs DM2 - on semaglutide; efrain-dose lispro here HTN - HCTZ morbid obesity - diet/exercise counseling VTE ppx - SCDs dispo - eventual home In my clinical judgment, the patient requires continued inpatient hospitalization for the following reasons: IV ABX + urologic intervention Total time managing care of this patient today: 35 minutes. Quality Stroke Does the patient have a stroke diagnosis?: No VTE Prior VTE?: No VTE Risk Level:: Medical - moderate - high VTE Device Contraindication: N/A - Device Ordered VTE Drug Contraindication: N/A - Med Ordered
--- NOTE | 2025-03-02 13:25 | P.CNUR_ITS ---
History of Present Illness Consult details Consult date: 03/02/25 Narrative: CC: Left distal ureteric stone 59-year-old male Presents to emergency room with shortness of breath and left-sided abdominal pain Pain progressive over last 6 hours prior to admission Multiple episodes of vomiting prior to arrival Denied fever, chills, dysuria, hematuria No reported history of renal stone CT - cluster 2 mm distal left ureteric obstructing stones with mild left hydro uretero nephrosis. Question of inflammatory process versus pyelonephritis. No other stone seen proximal. WBC 15.1, lactate normal, cultures obtained, UA large blood no bacteria seen, calcium 9.0 Pain managed with IV morphine Admission for observation trial of stone expulsion Would need ureteroscopy with laser lithotripsy should stones failed to pass Review of Systems 2 Constitutional: Constitutional: Reports as per HPI and Reports no additional constitutional complaints Cardiovascular: Cardiovascular: Reports as per HPI and Reports no additional cardiovascular complaints Respiratory: Respiratory: Reports as per HPI and Reports no additional respiratory complaints Gastrointestinal: Gastrointestinal: Reports as per HPI and Reports no additional gastrointestinal complaints Genitourinary: Genitourinary: Reports as per HPI Musculoskeletal: Musculoskeletal: Reports no additional musculoskeletal complaints and Reports as per HPI Neurologic: Reports system reviewed and no additional complaints, except as documented and Reports as per HPI [facility] Past Medical History Medical History Morbid obesity Diabetes mellitus KIRILL (obstructive sleep apnea) Smoker COPD (chronic obstructive pulmonary disease) HTN (hypertension) Acid reflux Diverticulitis Family History Family History Mother Diabetes Arthritis Sleep apnea COPD (chronic obstructive pulmonary disease) Father Stomach cancer Diabetes Arthritis Sister Arthritis Surgical History Surgical History Hx of colonoscopy History of colostomy reversal H/O colostomy Social History Social History Household Members: Spouse and Children Household Members Other:: and kid Housing: Apartment Housing Other:: 4th floor Do you presently have visiting nurse or other home services: No Unable to assess alcohol history related to: Unknown Alcohol intake: former Comment: at bedside Patient Tobacco Use Status: Former Tobacco user Tobacco use type: Cigarette Cigarette Packs Per Day: 1 Cigarettes Per Day: 13 Years Smoked: 60 Smoked in Last 30 Days: No e-Cigarette/Vaping Use: Never Used Second Hand Smoke Exposure: No Use of substances other than those prescribed or required for medical reasons: Unknown Advance Directives: Yes Advance Directives on File: Yes Advance Directives Date on File: 01/17/24 Do you have a plan to hurt others: No Plan Nutrition Risks: No Nutritional Risk service: No Current occupational status: employed Current occupation: [employer] Allergies Allergy/AdvReac Type Severity Reaction Status Date / Time No Known Allergies Allergy Unknown Verified 03/01/25 09:08 Active Medications: Current Medications Acetaminophen (Acetaminophen 325 Mg Tablet) 650 mg PO Q6H PRN PRN Reason: Pain, Mild 1-3,fever,headache Albuterol/Ipratropium (Albuterol/Iprat 2.5/0.5mg 3 Ml Ampul.Neb) 3 ml INHALE RQ6H WHILE AWAKE [facility] Last Admin: 03/02/25 07:47 Dose: 3 ml Albuterol/Ipratropium (Albuterol/Iprat 2.5/0.5mg 3 Ml Ampul.Neb) 3 ml INHALE Q4H PRN PRN Reason: Wheezing Calcium Carbonate (Calcium Carbonate 750 Mg Tab.Chew) 750 mg PO Q4H PRN PRN Reason: Heartburn Ceftriaxone Sodium (Ceftriaxone Sodium 1 Gm Vial) 1 gm IVPUSH Q24H [facility] Hydrochlorothiazide (Hydrochlorothiazide 25 Mg Tablet) 25 mg PO DAILY [facility]; Protocol Last Admin: 03/02/25 08:45 Dose: 25 mg Sodium Chloride (Ns) 1,000 mls @ 125 mls/hr IVCONT .Q8H [facility] Last Admin: 03/02/25 08:50 Dose: 125 mls/hr Ketorolac Tromethamine (Ketorolac Tromethamine 15 Mg/Ml Vial) 15 mg IVPUSH Q6H PRN PRN Reason: Pain, Moderate(Pain Scale 4-6) Last Admin: 03/02/25 06:28 Dose: 15 mg Magnesium Hydroxide (Milk Of Magnesia 30 Ml Oral.Susp) 30 ml PO DAILY PRN PRN Reason: Constipation Melatonin (Melatonin 3 Mg Tablet) 6 mg PO BEDTIME PRN PRN Reason: Insomnia Omeprazole (Omeprazole 20 Mg Capsule.Dr) 20 mg PO DAILY@ [facility] Last Admin: 03/02/25 06:24 Dose: 20 mg Ondansetron HCl (Ondansetron Hcl 4 Mg/2 Ml Vial) 4 mg IVPUSH Q6H PRN PRN Reason: Nausea and Vomiting Last Admin: 03/01/25 23:37 Dose: 4 mg Polyethylene Glycol (Polyethylene Glycol 3350 17 Gm Powd.Pack) 17 gm PO BEDTIME [facility] Last Admin: 03/01/25 21:26 Dose: 17 gm Prednisone (Prednisone 20 Mg Tablet) 40 mg PO DAILY [facility] Last Admin: 03/02/25 08:45 Dose: 40 mg Sodium Chloride (0.9 % Sodium Chloride Flush 3 Ml Syringe) 3 ml IVFLUSH QSHIFT [facility] Last Admin: 03/02/25 08:54 Dose: Not Given Tamsulosin HCl (Tamsulosin Hcl 0.4 Mg Capsule) 0.4 mg PO DAILY [facility] Last Admin: 03/02/25 08:45 Dose: 0.4 mg Theophylline (Theophylline Anhydrous Er 400 Mg Tab.Er.24h) 400 mg PO DAILY@08 [facility] Last Admin: 03/02/25 08:53 Dose: 400 mg Home Medications ?Medication ?Instructions ?Recorded ?Confirmed ?Last Taken ?Type acetaminophen 500 mg tablet 1,000 mg PO DAILY PRN Pain 12/09/23 03/01/25 11/20/24 History albuterol sulfate 90 mcg/actuation 2 inh inhalation Q4 H PRN shortness 12/09/23 03/01/25 11/21/24 History aerosol inhaler of breath or wheezing polyethylene glycol 3350 17 17 g PO BEDTIME 12/09/23 0 03/01/25 02/28/25 History gram/dose oral powder (Miralax) hydrochlorothiazide 25 mg tablet 25 mg PO DAILY 03/01/25 03/01/25 History calcium carbonate 550 mg-magnesium 3 - 4 tab PO Q2H OR N Heartburn 11/21/24 03/01/25 11/20/24 History hydroxide 110 mg chewable tablet theophylline 400 mg 400 mg PO DAILY@0800 11/21/ 5 03/01/25 03/01/25 History tablet,extended release 24 hr semaglutide (weight loss) 0.25 0.25 mg subcut WE 08/08 /25 08/08/25 2 Weeks Ago History mg/0.5 mL subcutaneous pen ~02/15/25 injector (Tony) Physical Exam 2 Vital Signs: Vital Signs: Last Vital Signs Temp 98.0 F 03/02/25 05:17 Pulse 101 H 03/02/25 08:47 Resp 23 H 03/02/25 08:47 BP 119/83 03/02/25 08:47 Pulse Ox 96 03/02/25 08:47 O2 Del Method Nasal Cannula 03/02/25 08:47 O2 Flow Rate 3 03/02/25 08:47 BMI result Body Mass Index 44.9 Const: General: cooperative, healthy appearing, comfortable and no acute distress Orientation/consciousness: patient oriented x3 HEENT: Face and sinus: Yes normal facial exam Mouth: moist mucous membranes Neck: Neck: Yes normal visual inspection, Yes full ROM and Yes trachea midline Chest: Chest palpation & inspection: normal inspection of the chest Resp: Effort & Inspection: normal respiratory effort, able to speak in complete sentences and no respiratory distress GI: Inspection: Yes normal to inspection Back/Spine/Pelvis: Cervical Spine: normal cervical lordosis Thoracic/Lumbar Spine: thoracic and lumbar spine normal to inspection Skin: General skin exam: no rashes or lesions noted Neuro: General: patient oriented x3, tone normal and moves all extremities Extrem: General: Yes normal to inspection and Yes capillary refill normal Results Labs 03/02/25 05:44 03/02/25 05:44 Labs: Abnormal lab results 03/02/25 Range/Units 05:44 WBC 15.1 H (4.8-10.8) X10*3/uL Hgb 13.5 L (14.0-18.0) g/dl RDW 16.3 H (11.0-16.0) % Carbon Dioxide 31 H (22-29) mmol/L BUN 22 H (9-16) mg/dL Creatinine 1.55 H (0.5-1.4) mg/dL Short CBC 03/02/25 Range/Units 05:44 WBC 15.1 H (4.8-10.8) X10*3/uL Hgb 13.5 L (14.0-18.0) g/dl Hct 43.3 (42.0-52.0) % Plt Count 348 (160-400) X10*3/uL BMP 03/02/25 05:44 Sodium 142 Potassium 4.5 D Chloride 101 Carbon Dioxide 31 H BUN 22 H Creatinine 1.55 H Calcium 9.0 Urine 03/01/25 Range/Units 11:39 Urine Color Yellow Urine Appearance Clear Urine pH 6.5 (5.0-9.0) Ur Specific Rohwer >= 1.030 H (1.005-1.025) Urine Protein Negative (Neg-Trace) mg/dL Urine Glucose (UA) Negative (Negative) mg/dL All other labs normal. Assessment and Plan (1) Hydroureteronephrosis: Status: Acute Plan Trial of stone passage Will need intervention if stone fails to pass Procedures Date of Service Date of Service: 03/02/25
--- NOTE | 2025-03-02 15:23 | MHC.CM.PN ---
pt lives with his is indepndent ,had no previous srvices has own ride home dc plan n/s
--- NOTE | 2025-03-02 18:55 | PC.NURSE ---
patient resting in bed has no complaints
[2025-03-02] MEDS: 0.9 % Sodium Chloride Flush 3 ML SYRINGE IVFLUSH (21:01)
[2025-03-03] VITALS (8 sets, daily range): BP systolic 134–166; BP diastolic 63–95; PULSE 77–100; RESP 12–20; TEMP 36.1–37.1; O2SAT 94–99
[2025-03-03 07:18] LABS: Hematocrit 40.4 % (42.0-52.0); Hemoglobin 12.7 g/dl (14.0-18.0); Mean Corpuscular HGB Conc 31.4 g/dl (31.0-36.0); Mean Corpuscular Hemoglobin 28.9 pg (27.0-33.0); Mean Corpuscular Volume 91.8 fL (80.0-98.0); NRBC Abs Auto 0.000 X10*3/uL (0.0-0.012); NRBC Pct Auto 0.0 /100WBC (0.0-0.2); Platelet Count 312 X10*3/uL (160-400); Red Blood Count 4.40 X10*6/uL (4.60-5.80); White Blood Count 13.3 X10*3/uL (4.8-10.8)
[2025-03-03 07:27] LABS: Anion Gap 12 (12-20); Blood Urea Nitrogen 28 mg/dL (9-16); Calcium 8.7 mg/dL (8.4-10.2); Carbon Dioxide 32 mmol/L (22-29); Chloride 102 mmol/L (96-108); Creatinine Clr Calc Pharmacy 68.5; Estimated Glomerular Filt Rate 44; Potassium 4.6 mmol/L (3.3-5.1); Sodium 141 mmol/L (135-145)
[2025-03-03] MEDS: 0.9 % Sodium Chloride Flush 3 ML SYRINGE IVFLUSH ×2 (09:00→18:07)
[2025-03-03] MEDS: Theophylline Anhydrous ER 400 MG TAB.ER.24H PO (09:00)
--- NOTE | 2025-03-03 09:53 | HO.PM.IMPN ---
Subjective Subjective Date of Service: 03/03/25 Interval History: c/o ongoing L flank pain, SCr worse, has not passed stone yet Review of Systems Review of Systems: Yes all other systems are reviewed and are negative Physical Exam Vital Signs: Vital Signs: Last Vital Signs Temp 98.1 F 03/03/25 06:59 Pulse 82 03/03/25 06:59 Resp 20 03/03/25 06:59 BP 157/86 H 03/03/25 06:59 Pulse Ox 94 03/03/25 06:59 O2 Del Method Nasal Cannula 03/03/25 06:59 O2 Flow Rate 2 03/03/25 06:59 BMI result Body Mass Index 44.9 Gen: in no acute distress HEENT: sclera anicteric, moist mucus membranes Neck: supple Lungs: clear to auscultation bilaterally Heart: regular rate and rhythm, no murmurs Abd: soft, non-tender, non-distended, obese : L CVA tenderness Ext: no edema Skin: warm/well-perfused Neuro: alert and oriented x3, R Falk's palsy Psych: appropriate affect Objective Data Active Medications Acetaminophen (Acetaminophen 325 Mg Tablet) 650 mg PO Q6H PRN PRN Reason: Pain, Mild 1-3,fever,headache Albuterol/Ipratropium (Albuterol/Iprat 2.5/0.5mg 3 Ml Ampul.Neb) 3 ml INHALE RQ6H WHILE AWAKE [facility] Last Admin: 03/03/25 08:29 Dose: Not Given Documented By: BHAVYA Non-Admin Reason: Not In Room Albuterol/Ipratropium (Albuterol/Iprat 2.5/0.5mg 3 Ml Ampul.Neb) 3 ml INHALE Q4H PRN PRN Reason: Wheezing Calcium Carbonate (Calcium Carbonate 750 Mg Tab.Chew) 750 mg PO Q4H PRN PRN Reason: Heartburn Ceftriaxone Sodium (Ceftriaxone Sodium 1 Gm Vial) 1 gm IVPUSH Q24H [facility] Last Admin: 03/02/25 13:57 Dose: 1 gm Documented By: DENNIS Hydrochlorothiazide (Hydrochlorothiazide 25 Mg Tablet) 25 mg PO DAILY [facility]; Protocol On Hold: 03/03/25 07:57 Last Admin: 03/02/25 08:45 Dose: 25 mg Documented By: DENNIS Sodium Chloride (Ns) 1,000 mls @ 125 mls/hr IVCONT .Q8H [facility] Last Admin: 03/03/25 09:00 Dose: 125 mls/hr Documented By: CHAU Magnesium Hydroxide (Milk Of Magnesia 30 Ml Oral.Susp) 30 ml PO DAILY PRN PRN Reason: Constipation Melatonin (Melatonin 3 Mg Tablet) 6 mg PO BEDTIME PRN PRN Reason: Insomnia Morphine Sulfate (Morphine Sulfate 2 Mg/Ml Cartridge) 2 mg IVPUSH Q4H PRN; Protocol PRN Reason: Pain, Severe (Pain Scale 7-10) Last Admin: 03/03/25 09:15 Dose: 2 mg Documented By: CHAU Non-Formulary Medication (Ipratropium-Albuterol [Combivent Respimat]) 1 puff INHALE Q6H [facility] Non-Formulary Medication (Anoro Ellipta) 1 each INHALE DAILY [facility] Omeprazole (Omeprazole 20 Mg Capsule.Dr) 20 mg PO DAILY@0630 [facility] Last Admin: 03/03/25 05:48 Dose: 20 mg Documented By: MATA Ondansetron HCl (Ondansetron Hcl 4 Mg/2 Ml Vial) 4 mg IVPUSH Q6H PRN PRN Reason: Nausea and Vomiting Last Admin: 03/01/25 23:37 Dose: 4 mg Documented By: MARGAUX Polyethylene Glycol (Polyethylene Glycol 3350 17 Gm Powd.Pack) 17 gm PO BEDTIME [facility] Last Admin: 03/02/25 20:59 Dose: 17 gm Documented By: MATA Prednisone (Prednisone 20 Mg Tablet) 40 mg PO DAILY [facility] Last Admin: 03/03/25 09:00 Dose: 40 mg Documented By: CHAU Sodium Chloride (0.9 % Sodium Chloride Flush 3 Ml Syringe) 3 ml IVFLUSH QSHIFT [facility] Last Admin: 03/03/25 09:00 Dose: 3 ml Documented By: CHAU Tamsulosin HCl (Tamsulosin Hcl 0.4 Mg Capsule) 0.4 mg PO DAILY [facility] Last Admin: 03/03/25 09:00 Dose: 0.4 mg Documented By: CHAU Theophylline (Theophylline Anhydrous Er 400 Mg Tab.Er.24h) 400 mg PO DAILY@0800 [facility] Last Admin: 03/03/25 09:00 Dose: 400 mg Documented By: CHAU Labs 03/03/25 06:06 03/03/25 06:06 Labs: Laboratory Results - last 24 hr 03/03/25 03/03/25 06:06 08:56 MCV 91.8 MCH 28.9 MCHC 31.4 RDW 16.1 H Plt Count 312 MPV 9.5 Absolute Nucleated RBC 0.000 Nucleated RBC % (auto) 0.0 Anion Gap 12 Estim Creat Clear Calc 68.5 Estimated GFR 44 Random Glucose 101 Calcium 8.7 Ur Random Sodium 100.0 Urine Creatinine 158.40 Microbiology Microbiology Results: Microbiology 03/01/25 12:53 Blood Culture - Preliminary Blood - Venous No growth after 24 hours. 03/01/25 12:54 Blood Culture - Preliminary Blood - Venous No growth after 24 hours. Assessment and Plan (1) Pyelonephritis: Status: Acute Plan d3, 59yo M with COPD + KIRILL, chronic hypoxia/hypercarbia on 2L O2 + BiPAP, obesity, Falk's palsy presenting with L flank pain, found to have obstructing L ureteral stones with hydroureteronephrosis and pyelonephritis sepsis due to pyelonephritis from obstructing left ureteral stones resulting in hydroureteronephrosis - ceftriaxone 03/01-, follow BCx + UCx, prednisone + tamsulosin, Urology consulted and NPO after midnight for operative intervention tomorrow MICHELLE - likely postrenal obstruction, recheck after stone procedure chronic hypoxic + hypercarbic respiratory failure due to COPD + KIRILL - 2L O2, BiPAP, theophylline, Anoro, nebs, inhalers DM2 - on semaglutide; efrain-dose lispro here HTN - hold HCTZ morbid obesity - diet/exercise counseling VTE ppx - SCDs dispo - eventual home In my clinical judgment, the patient requires continued inpatient hospitalization for the following reasons: IV ABX + urologic intervention Total time managing care of this patient today: 35 minutes. Quality Stroke Does the patient have a stroke diagnosis?: No VTE Prior VTE?: No VTE Risk Level:: Medical - moderate - high VTE Device Contraindication: N/A - Device Ordered VTE Drug Contraindication: N/A - Med Ordered
[2025-03-03] MEDS: Albuterol/Iprat 2.5/0.5MG 3 ML AMPUL.NEB INHALE ×2 (11:34→20:48)
--- NOTE | 2025-03-03 13:53 | PC.NURSE ---
pt passed the stone in his urine , DR Christianson was notified , stone was sent to the lab for study . Pt denied any pain during urination ,
--- NOTE | 2025-03-03 14:46 | P.PNUR_ITS ---
Subjective Subjective Date of Service: 03/03/25 Interval history: Subjectively improved WBC stable 13 Creatinine stable 1.6 Recently passed small stone this morning and feels pain is starting to resolve on left side Encouraged to maintain increased fluid intake May avoid operative intervention Physical Exam 2 Vital Signs: Vital Signs: Last Vital Signs Temp 98.6 F 03/03/25 11:10 Pulse 77 03/03/25 11:38 Resp 18 03/03/25 11:38 BP 155/79 H 03/03/25 11:10 Pulse Ox 97 03/03/25 11:10 O2 Del Method Nasal Cannula 03/03/25 11:10 O2 Flow Rate 2 03/03/25 11:10 BMI result Body Mass Index 44.9 Const: General: cooperative, healthy appearing, comfortable and no acute distress Orientation/consciousness: patient oriented x3 HEENT: Face and sinus: Yes normal facial exam Mouth: moist mucous membranes Neck: Neck: Yes normal visual inspection, Yes full ROM and Yes trachea midline Chest: Chest palpation & inspection: normal inspection of the chest Resp: Effort & Inspection: normal respiratory effort, able to speak in complete sentences and no respiratory distress GI: Inspection: Yes normal to inspection Back/Spine/Pelvis: Cervical Spine: normal cervical lordosis Thoracic/Lumbar Spine: thoracic and lumbar spine normal to inspection Skin: General skin exam: no rashes or lesions noted Neuro: General: patient oriented x3, tone normal and moves all extremities Extrem: General: Yes normal to inspection and Yes capillary refill normal Urology Results Labs 03/03/25 06:06 03/03/25 06:06 Labs: Laboratory Results - last 24 hr 03/03/25 03/03/25 06:06 08:56 WBC 13.3 H RBC 4.40 L Hgb 12.7 L Hct 40.4 L MCV 91.8 MCH 28.9 MCHC 31.4 RDW 16.1 H Plt Count 312 MPV 9.5 Absolute Nucleated RBC 0.000 Nucleated RBC % (auto) 0.0 Sodium 141 Potassium 4.6 Chloride 102 Carbon Dioxide 32 H Anion Gap 12 BUN 28 H Creatinine 1.64 H Estim Creat Clear Calc 68.5 Estimated GFR 44 Random Glucose 101 Calcium 8.7 Ur Random Sodium 100.0 Urine Creatinine 158.40 Progress Note: A&P Assessment and plan (1) Hydroureteronephrosis: Status: Acute Plan distal left ureteric stones Continue conservative therapy Time Spent With Patient Time: Total time managing care of this patient today ____ minutes. Progress Note: Quality Stroke Does the patient have a stroke diagnosis?: No
[2025-03-04 03:34] VITALS: BP 151/111; PULSE 80; RESP 18; TEMP 36.1; O2SAT 94
[2025-03-04 07:05] VITALS: BP 158/101; PULSE 77; RESP 18; TEMP 36.1; O2SAT 96
[2025-03-04] MEDS: Albuterol/Iprat 2.5/0.5MG 3 ML AMPUL.NEB INHALE (07:48)
[2025-03-04 07:50] VITALS: PULSE 77; RESP 18; O2SAT 95
[2025-03-04 07:53] LABS: Anion Gap 10 (12-20); Blood Urea Nitrogen 18 mg/dL (9-16); Calcium 8.8 mg/dL (8.4-10.2); Carbon Dioxide 34 mmol/L (22-29); Chloride 104 mmol/L (96-108); Creatinine Clr Calc Pharmacy 117.1; Estimated Glomerular Filt Rate > 60; Potassium 4.3 mmol/L (3.3-5.1); Sodium 144 mmol/L (135-145)
[2025-03-04] MEDS: Theophylline Anhydrous ER 400 MG TAB.ER.24H PO (09:23)
[2025-03-04 11:41] VITALS: BP 159/94; PULSE 90; RESP 17; TEMP 36.3; O2SAT 94
--- NOTE | 2025-03-04 12:31 | PM.DS ---
DS: Providers Provider Date of Service: 03/04/25 Date of admission: 03/01/25 13:21 Date of discharge: 03/04/25 Primary care physician: Leonard Boston MD Consults: 03/01/25 13:21 Consult to Urology Routine Consulting Provider: [facility] Reason for consultation: left side stones with mild hydro ?pyelo Has provider been notified: No DS: Diagnosis Discharge Diagnosis (1) Hydroureteronephrosis: Status: Acute (2) Pyelonephritis: Status: Acute (3) Ureteral stone with hydronephrosis: Status: Acute (4) Acute kidney failure: Status: Acute (5) Morbid obesity: Status: Acute (6) Sepsis: Status: Acute DS: Summary Hospital Course Hospital Course: From the history and physical by the admitting hospitalist, ALISON Ramirez, 03/01/25: This is a 59-year-old male with a history of hypercarbic respiratory failure, morbid obesity who presents to the emergency department with shortness of breath and left-sided abdominal pain. Patient reports he began having left-sided abdominal pain with radiation to his back this morning. He had multiple episodes of vomiting prior to arrival in the emergency department. He denies any urinary symptoms, fever, chills. He also reports shortness of breath starting at the same time, denies any significant cough. In the emergency department he had a CAT scan of the abdomen and pelvis which showed a cluster of 2 mm obstructing calculus distal left ureter resulting in mild left hydroureteronephrosis questionable superimposed acute inflammatory process/pyelonephritis. Chest x-ray was unremarkable. Lab work was significant for leukocytosis of 4.8, lactic acid within normal limits. Blood cultures were obtained and patient was started on IV ceftriaxone. He required multiple doses of IV morphine for pain control. The case was discussed with the urologist who recommended starting Flomax and giving a dose of prednisone. For his breathing he received breathing treatments and he is beginning to feel better from that perspective. 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 Treated with IV hydration, tamsulosin, prednisone, and IV ceftriaxone. Blood cultures negative and urine culture negative though latter was sent after 2 days of antibiotics. Operative intervention was planned but the patient passed the renal stone on his own and symptoms resolved with normalization of serum creatinine. He was discharged on 5 days of cefuroxime and should follow up with Urology in 2 months. Time Attestation Discharge Coordination Time (in mins): 35 Quality: Safe Use of Opioids Does Pt have an Active Cancer Diagnosis on the Problem List?: No Quality: Stroke Does the patient have a stroke diagnosis?: No Physical Exam Vital Signs: Vital Signs: Last Vital Signs Temp 97.3 F 03/04/25 11:41 Pulse 90 03/04/25 11:41 Resp 17 03/04/25 11:41 BP 159/94 H 03/04/25 11:41 Pulse Ox 94 03/04/25 11:41 O2 Del Method Nasal Cannula 03/04/25 11:41 O2 Flow Rate 2 03/04/25 11:41 BMI result Body Mass Index 44.9 Gen: in no acute distress HEENT: sclera anicteric, moist mucus membranes Neck: supple Lungs: clear to auscultation bilaterally Heart: regular rate and rhythm, no murmurs Abd: soft, non-tender, non-distended, obese Ext: no edema Skin: warm/well-perfused Neuro: alert and oriented x3, R Falk's palsy Psych: appropriate affect DS: Data Data Completed and Pending Completed studies during hospitalization [Text1]: Laboratory Results WBC 13.3 X10*3/uL (4.8-10.8) H 03/03/25 06:06 RBC 4.40 X10*6/uL (4.60-5.80) L 03/03/25 06:06 Hgb 12.7 g/dl (14.0-18.0) L 03/03/25 06:06 Hct 40.4 % (42.0-52.0) L 03/03/25 06:06 MCV 91.8 fL (80.0-98.0) 03/03/25 06:06 MCH 28.9 pg (27.0-33.0) 03/03/25 06:06 MCHC 31.4 g/dl (31.0-36.0) 03/03/25 06:06 RDW 16.1 % (11.0-16.0) H 03/03/25 06:06 Plt Count 312 X10*3/uL (160-400) 03/03/25 06:06 MPV 9.5 fL (9.4-12.4) 03/03/25 06:06 Immature Gran % (Auto) 0.7 % (0.0-0.4) H 03/01/25 09:41 Neut % (Auto) 71.3 % (45-73) 03/01/25 09:41 Lymph % (Auto) 18.1 % (20-40) L 03/01/25 09:41 Tate % (Auto) 9.1 % (2-11) 03/01/25 09:41 Eos % (Auto) 0.4 % (0-4) 03/01/25 09:41 Baso % (Auto) 0.4 % (0-2) 03/01/25 09:41 Lymph # (Auto) 2.7 X10*3/uL (1.2-4.9) 03/01/25 09:41 Tate # (Auto) 1.4 X10*3/uL (0.1-1.2) H 03/01/25 09:41 Eos # (Auto) 0.1 X10*3/uL (0.0-0.4) 03/01/25 09:41 Baso # (Auto) 0.1 X10*3/uL (0.0-0.2) 03/01/25 09:41 Abs Immat Gran (auto) 0.11 X10*3/uL (0.00-0.03) H 03/01/25 09:41 Absolute Neuts (auto) 10.5 x10*3/uL (2.0-8.3) H 03/01/25 09:41 Absolute Nucleated RBC 0.000 X10*3/uL (0.0-0.012) 03/03/25 06:06 Nucleated RBC % (auto) 0.0 /100WBC (0.0-0.2) 03/03/25 06:06 Hold Purple Top SEE NOTE 03/04/25 07:08 D-Dimer High Sensitivty 194 NG/ML 03/01/25 09:41 VBG pH 7.38 (7.32-7.43) 03/01/25 09:47 VBG pCO2 55 mmHg 03/01/25 09:47 VBG pO2 54 mmHg 03/01/25 09:47 VBG HCO3 33 mmol/L (22-26) H 03/01/25 09:47 VBG O2 Saturation 83.0 % 03/01/25 09:47 VBG Base Excess 6.5 mmol/L 03/01/25 09:47 Sodium 144 mmol/L (135-145) 03/04/25 07:08 Potassium 4.3 mmol/L (3.3-5.1) 03/04/25 07:08 Chloride 104 mmol/L (96-108) 03/04/25 07:08 Carbon Dioxide 34 mmol/L (22-29) H 03/04/25 07:08 Anion Gap 10 (12-20) L 03/04/25 07:08 BUN 18 mg/dL (9-16) H 03/04/25 07:08 Creatinine 0.96 mg/dL (0.5-1.4) 03/04/25 07:08 Estim Creat Clear Calc 117.1 03/04/25 07:08 Estimated GFR > 60 03/04/25 07:08 Random Glucose 83 mg/dL (60-115) 03/04/25 07:08 Lactic Acid 1.6 mmol/L (0.5-2.0) 03/01/25 12:53 Calcium 8.8 mg/dL (8.4-10.2) 03/04/25 07:08 Magnesium 1.8 mg/dL (1.6-2.6) 03/01/25 09:41 Total Bilirubin 0.2 mg/dL (0.0-1.0) 03/01/25 09:41 Direct Bilirubin < 0.2 mg/dL (0.0-0.5) 03/01/25 09:41 AST 19 U/L (5-37) 03/01/25 09:41 ALT 16 U/L (0-40) 03/01/25 09:41 Alkaline Phosphatase 93 U/L (39-117) 03/01/25 09:41 Troponin I High Sens 2.8 ng/L (<3.5-35.0) 03/01/25 09:41 B-Natriuretic Peptide < 10 pg/mL (<100) 03/01/25 09:41 Total Protein 7.1 g/dL (6.5-8.0) 03/01/25 09:41 Albumin 3.7 g/dL (3.5-5.0) 03/01/25 09:41 Lipase 13 U/L (8-78) 03/01/25 09:41 Urine Color Yellow 03/01/25 11:39 Urine Appearance Clear 03/01/25 11:39 Urine pH 6.5 (5.0-9.0) 03/01/25 11:39 Ur Specific [place] >= 1.030 (1.005-1.025) H 03/01/25 11:39 Urine Protein Negative mg/dL (Neg-Trace) 03/01/25 11:39 Urine Glucose (UA) Negative mg/dL (Negative) 03/01/25 11:39 Urine Ketones Negative mg/dL (Negative) 03/01/25 11:39 Urine Blood Large (3+) (Negative) H 03/01/25 11:39 Urine Nitrite Negative (Negative) 03/01/25 11:39 Ur Leukocyte Esterase Negative (Negative) 03/01/25 11:39 Urine RBC >20 /HPF (0-2) H 03/01/25 11:39 Urine WBC 0-5 /HPF (0-5) 03/01/25 11:39 Ur Squamous Epith Cells 0-2 /HPF (0-2) 03/01/25 11:39 Urine Bacteria None Seen (None Seen) 03/01/25 11:39 Hyaline Casts 0-2 /LPF (0-2) 03/01/25 11:39 Ur Random Sodium 100.0 mmol/L 03/03/25 08:56 Urine Creatinine 158.40 mg/dL 03/03/25 08:56 Impressions Chest X-Ray 03/01/25 08:41 IMPRESSION: No active pulmonary disease. Electronically signed by: Mesfin Cueva MD 03/01/2025 10:00 AM EDT Abdomen/Pelvis CT 03/01/25 09:32 IMPRESSION: Cluster of 2 mm obstructing calculus distal left ureter resulting in mild left hydroureteronephrosis and questionable superimposed acute inflammatory process/pyelonephritis. Fleischner guidelines were followed. Electronically signed by: Ted Sullivan MD 03/01/2025 11:08 AM EDT RP Pending studies at discharge: Pending at discharge 03/04/25 09:06 Surgical Path [Surgical] [PTH] Routine Discharge Plan Discharge Anticipated Discharge Date/Time: 03/04/25 12:26 Patient Disposition: Home, Self-Care Discharge Diagnosis: obstructing left kidney stone causing acute kidney injury and pyelonephritis Referrals: Zane Almodovar MD [Physician, Urology] - 2 Months Leonard Boston MD [Primary Care Provider, Internal Medicine] - 1 Week Discharge Medications: New cefuroxime axetil 500 mg tablet 500 mg PO BID Qty: 10 0RF Continued furosemide 40 mg tablet 40 mg PO DAILY Qty: 90 4RF umeclidinium-vilanterol [Anoro Ellipta] 62.5-25 mcg/actuation blister with device 1 ea PO DAILY Qty: 60 6RF Rx Instructions: by inhalation Combivent Respimat 20-100 mcg/actuation mist 1 puff inhalation Q6H Qty: 1 6RF ipratropium-albuterol 0.5 mg-3 mg(2.5 mg base)/3 mL solution for nebulization 3 ml inhalation Q4-6H PRN (Reason: wheezing) Qty: 180 0RF hydrochlorothiazide 25 mg tablet 25 mg PO DAILY (DME) CPAP Machine/Device Device See Rx Instructions .Route Qty: 1 0RF Rx Instructions: As directed. Auto cpap 5-20. with all supplies Length of need lifetime prednisone 20 mg tablet 40 mg PO DAILY 4 Days Qty: 8 0RF Rx Instructions: start 02/27/2025 Wegovy 0.25 mg/0.5 mL pen injector 0.25 mg subcut WE acetaminophen 500 mg Tablet 1,000 mg PO DAILY PRN (Reason: Pain) polyethylene glycol 3350 [Miralax] 17 gram/dose Powder 17 g PO BEDTIME albuterol sulfate 90 mcg/actuation HFA aerosol inhaler 2 inh inhalation Q4H PRN (Reason: shortness of breath or wheezing) calcium carbonate-mag hydroxid 550-110 mg Tablet,Chewable 3 - 4 tab PO Q2H PRN (Reason: Heartburn) theophylline 400 mg tablet extended release 24 hr 400 mg PO DAILY@0800 Discharge Orders: Discharge Order (Routine); Ordered 03/04/25 Ordered By: Zaheer Christianson Diet: Low salt diet Activity on Discharge: As tolerated Stand Alone Forms: Patient Portal Discharge page Print Language: Greenlandic Care Plan Goals: prevent kidney stones Health Concerns: obstructing left kidney stone causing acute kidney injury and pyelonephritis Plan of Treatment: drink plenty of fluid take cefuroxime 500 mg 2x a day for 5 days follow up with [facility] in 2 months Please follow up with your primary care doctor within 1 week. Return to the hospital if you experience recurrent or worsening symptoms. Assessment: See Discharge Summary.
--- NOTE | 2025-03-04 15:59 | MHC.CM.PN ---
PT MEDICALLY CLEARED FOR DC HOME SELF CARE, PT HAS ARRANGED RIDE HOME.
== END 2025-03-04 13:38 | disposition home or self-care (01) | DRG 694 ==
LOC: HO.ED 13:06 → HO.EDOVER 14:05 → HO.IMC 03-02 16:15
PROVIDERS: Emergency Medicine; Admitting Provider Physician Assistant Medical; Emergency Provider Emergency Medicine Emergency Medical Services; PCP Internal Medicine Medical Oncology; Visit Provider Family Medicine
DX: N13.2 Hydronephrosis with renal and ureteral calculous obstruction (principal); Z68.41 Body mass index [BMI] 40.0-44.9, adult; J96.12 Chronic respiratory failure with hypercapnia; J96.11 Chronic respiratory failure with hypoxia; N17.9 Acute kidney failure, unspecified; J44.9 Chronic obstructive pulmonary disease, unspecified; E66.01 Morbid (severe) obesity due to excess calories; G47.33 Obstructive sleep apnea (adult) (pediatric); Z99.81 Dependence on supplemental oxygen; Z71.3 Dietary counseling and surveillance; Z79.52 Long term (current) use of systemic steroids; Z79.899 Other long term (current) drug therapy
CPT/HCPCS: 36415; 71045; 74177; 80048; 80076; 81001; 82365; 82570; 82803; 83605; 83690; 83735; 83880; 84300; 84484; 85025; 85027; 85379; 87040; 87086; 88300; 93005; 94640; 94660; 99285; J0696; J1885; J2270; J2405; J7120; Q9967

== ENCOUNTER → 2025-03-01 09:08 | Outpatient (BNV) | payer OTHER, SELFPAY | PROVIDERS: Emergency Provider Emergency Medicine Emergency Medical Services; PCP Internal Medicine Medical Oncology; Visit Provider Internal Medicine | DX: R94.31 Abnormal electrocardiogram [ECG] [EKG] (principal); R06.00 Dyspnea, unspecified | CPT/HCPCS: 93010 ==

== ENCOUNTER → 2025-03-01 09:28 | Outpatient (BNV) | payer OTHER, SELFPAY | PROVIDERS: Emergency Provider Emergency Medicine Emergency Medical Services; PCP Internal Medicine Medical Oncology; Visit Provider Radiology Diagnostic Radiology | DX: N13.2 Hydronephrosis with renal and ureteral calculous obstruction (principal); R06.02 Shortness of breath | CPT/HCPCS: 71045; 74177 ==

== ENCOUNTER → 2025-03-01 13:21 | Outpatient (BNV) | payer OTHER, SELFPAY | PROVIDERS: Admitting Provider Physician Assistant Medical; Emergency Provider Emergency Medicine Emergency Medical Services; PCP Internal Medicine Medical Oncology; Visit Provider Physician Assistant Medical | DX: N12 Tubulo-interstitial nephritis, not specified as acute or chronic (principal) | CPT/HCPCS: 99223; 99232 ==

== ENCOUNTER → 2025-03-01 13:21 | Outpatient (BNV) | payer OTHER, SELFPAY | PROVIDERS: Admitting Provider Physician Assistant Medical; Emergency Provider Emergency Medicine Emergency Medical Services; PCP Internal Medicine Medical Oncology; Visit Provider Urology | DX: N13.30 Unspecified hydronephrosis (principal) | CPT/HCPCS: 99222; 99232 ==

== ENCOUNTER → 2025-03-23 07:57 | Outpatient (BNV) | payer OTHER, SELFPAY | PROVIDERS: Emergency Provider Emergency Medicine; PCP Internal Medicine Medical Oncology; Visit Provider Radiology Vascular & Interventional Radiology | DX: R06.02 Shortness of breath (principal); R00.0 Tachycardia, unspecified; R09.02 Hypoxemia; M79.661 Pain in right lower leg; M79.662 Pain in left lower leg; R79.89 Other specified abnormal findings of blood chemistry | CPT/HCPCS: 71045; 71275; 93970 ==

== ENCOUNTER 2025-03-23 08:21 | Inpatient (IN) | payer OTHER, SELFPAY ==
[2025-03-23] VITALS (9 sets, daily range): BP systolic 142–163; BP diastolic 67–92; PULSE 97–115; RESP 16–24; TEMP 36.6–37.2; O2SAT 92–97; BMI 45.8; BMI 46.2
--- NOTE | ~2025-03-23 | XR_ITS ---
CLINICAL HISTORY: sob 1 view chest x-ray Comparison: CR/SR - XR CHEST 1 VIEW - 03/01/25 09:41 EDT Findings: Favor lower lobe density suggested. Cardiac and mediastinal contours are stable. No acute fracture. IMPRESSION: Possible faint right lower lobe infiltrate. Follow-up recommended. This document has been electronically signed by: Dakota Reid MD on 03/23/2025 09:17:25
--- NOTE | ~2025-03-23 | US_ITS ---
CLINICAL HISTORY: 2 weeks increased heavy legs, B L calf pain, Venous duplex ultrasound bilateral lower extremity Comparison: None provided Findings: The visualized deep veins are fully compressible with normal Doppler color flow and spectral tracings. No popliteal cyst. Evaluation somewhat limited by body habitus. IMPRESSION: 1. Negative for bilateral lower extremity deep vein thrombosis. This document has been electronically signed by: Dakota Reid MD on 03/23/2025 10:16:57
--- NOTE | ~2025-03-23 | CT_ITS ---
CLINICAL HISTORY: SOB, tachycardia, hypoxia elevated Dimer CT angiography chest with contrast. 3D Postprocessing. Comparison: CT/SR - CT LUNG SCREENING - 08/07/2024 04:[address]/SR - CT ANGIO CHEST PE PROTOCOL - 02/13/2024 05:13 AM EDT Findings: The heart is normal size. RV/LV ratio is normal. Unremarkable thoracic aorta and great vessels. No aneurysm. No pulmonary artery filling defects. Mild atherosclerotic disease of the coronary arteries. No pericardial effusion. No significant mediastinal adenopathy. No discrete thyroid lesion. Lungs exhibit mild airway thickening of the lung bases. Minimal centrilobular emphysema of the lung apices. No significant effusion. No pneumothorax. The visualized upper abdomen is unremarkable. No acute osseous finding. Impression: No evidence of pulmonary embolism or heart strain. No definite acute process in the chest. This document has been electronically signed by: Dakota Reid MD on 03/23/2025 12:32:20
--- NOTE | 2025-03-23 08:30 | ECG_ITS ---
Test Reason : SHORTNESS OF BREATH Blood Pressure : */* mmHG Vent. Rate : 113 BPM Atrial Rate : 113 BPM P-R Int : 136 ms QRS Dur : 84 ms QT Int : 352 ms P-R-T Axes : 58 51 57 degrees QTcB Int : 482 ms Sinus tachycardia Inferior infarct (cited on or before 01-Mar-2025) Abnormal ECG When compared with ECG of 01-Mar-2025 09:22, No significant change was found Referred By: Generic ED Physician Electronically Signed By: RANJAN WANG
[2025-03-23 09:04] LABS: MANUAL DIFF FLAG NO
[2025-03-23 09:06] LABS: Hematocrit 40.3 % (42.0-52.0); Hemoglobin 13.2 g/dl (14.0-18.0); Imm Gran Abs Auto 0.03 X10*3/uL (0.00-0.03); Imm Gran Pct Auto 0.4 % (0.0-0.4); Lymphocytes Absolute Auto 1.3 X10*3/uL (1.2-4.9); Mean Corpuscular HGB Conc 32.8 g/dl (31.0-36.0); Mean Corpuscular Hemoglobin 28.9 pg (27.0-33.0); Mean Corpuscular Volume 88.2 fL (80.0-98.0); NRBC Abs Auto 0.000 X10*3/uL (0.0-0.012); NRBC Pct Auto 0.0 /100WBC (0.0-0.2); Platelet Count 334 X10*3/uL (160-400); Red Blood Count 4.57 X10*6/uL (4.60-5.80); White Blood Count 8.4 X10*3/uL (4.8-10.8)
[2025-03-23 09:11] LABS: VBG HCO3 31 mmol/L (22-26); VBG O2 % Saturation 91.0 %
--- NOTE | 2025-03-23 09:11 | ED.GENADULT ---
HPI - General Adult General Chief complaint: Dyspnea Stated complaint: diff breathing Time Seen by Provider: 03/23/25 09:09 Source: patient, RN notes reviewed and old records reviewed Mode of arrival: ambulatory Limitations: no limitations History of Present Illness ED Provider: Michele Rosado PA-C HPI narrative: 59-year-old male with medical history of obesity, T2DM, COPD, chronic hypoxic hypercarbic respiratory failure on 2 L nasal cannula baseline, KIRILL on Cpap, HTN, GERD, diverticulitis s/p colostomy w/reversal in 2021 presents to the ED due to 1 day of SOB and difficulty breathing. Patient states while he was at work last night as the [employer] at [facility] he started to smell a dirt like odor and began to have difficulty breathing. Patient reports he sat down and took a nebulizer treatment without effect. Patient states shortness of breath and difficulty breathing is worse when up and walking around. Patient states he got home and put on his oxygen and used Cpap when he began coughing and feeling a tightness in his lungs. Patient states he was unable to sleep last night and took 20mg of prednisone this morning without effect which prompted him to seek care in the ED. additionally patient states he has noticed bilateral leg heaviness and weakness over the last 2 weeks. Denies fevers, chills, productive cough, nausea, vomiting, abdominal pain, dark/tarry stool, dizziness, syncope MD complaint: SOB, difficulty breathing Related Data Home Medications ?Medication ?Instructions ?Recorded ?Confirmed acetaminophen 500 mg tablet 1,000 mg PO DAILY PRN Pain 12/09/23 03/23/25 albuterol sulfate 90 mcg/actuation 2 inh inhalation Q4H PRN shortness 12/09/23 03/23/25 aerosol inhaler of breath or wheezing polyethylene glycol 3350 17 17 g PO BEDTIME 12/09/23 03/23/25 gram/dose oral powder (Miralax) calcium carbonate 550 mg-magnesium 3 - 4 tab PO Q2H PRN Heartburn 11/21/24 03/23/25 hydroxide 110 mg chewable tablet theophylline 400 mg 400 mg PO DAILY@0800 11/21/24 03/23/25 tablet,extended release 24 hr Previous Rx's ?Medication ?Instructions ?Recorded CPAP (CPAP Machine/Device) #1 ea 01/24/24 furosemide 40 mg tablet 40 mg PO DAILY #90 tabs 07/13/24 umeclidinium 62.5 mcg-vilanterol 1 ea PO DAILY #60 ea 01/07/25 25 mcg/actuation powdr for inhalation (Anoro Ellipta) ipratropium 20 mcg-albuterol 100 1 puff inhalation Q6H #1 ea 02/13/25 mcg/actuation mist for inhalation (Combivent Respimat) ipratropium 0.5 mg-albuterol 3 mg 3 ml inhalation Q4-6H PRN wheezing 02/25/25 (2.5 mg base)/3 mL nebulization #180 mL soln Allergies Allergy/AdvReac Type Severity Reaction Status Date / Time No Known Allergies Allergy Unknown Verified 03/23/25 08:26 Review of Systems Review of Systems: CONST: Negative for fever, body aches and chills. HENT: Negative for neck pain/stiffness, headache, congestion, sore throat, swelling. EYES: Negative for discharge/pain or vision changes. RESP: Negative for cough/hemoptysis. POS difficulty breathing, SOB CV: Negative chest pain, palpitations. ABD: Negative pain, nausea, vomiting. : Negative increase frequency, dysuria, blood in urine or stool. MUSC: Negative for muscle aches, edema. POS B/L leg heaviness/weakness SKIN: Negative rash, lesions/sores. NEURO: Negative headache, dizziness, weakness. Yes all other systems are reviewed and are negative [facility] Past Medical History Attestation statement: The following information was validated with the patient. Source: old records reviewed and nursing notes reviewed Medical History Morbid obesity Diabetes mellitus KIRILL (obstructive sleep apnea) Smoker COPD (chronic obstructive pulmonary disease) HTN (hypertension) Acid reflux Diverticulitis Surgical History Hx of colonoscopy History of colostomy reversal H/O colostomy Family History Family History Mother Diabetes Arthritis Sleep apnea COPD (chronic obstructive pulmonary disease) Father Stomach cancer Diabetes Arthritis Sister Arthritis Social History Social History Household Members: Spouse Household Members Other:: and kid Housing: Apartment Housing Other:: 4th floor Do you presently have visiting nurse or other home services: No Unable to assess alcohol history related to: Unknown Alcohol intake: former Comment: at bedside Patient Tobacco Use Status: Former Tobacco user Tobacco use type: Cigarette Cigarette Packs Per Day: 1 Cigarettes Per Day: 13 Years Smoked: 60 Smoked in Last 30 Days: No e-Cigarette/Vaping Use: Never Used Second Hand Smoke Exposure: No Use of substances other than those prescribed or required for medical reasons: No Have you been hit, kicked, punched, or otherwise hurt by someone within the past year? If so, by whom?: No Do you feel safe in your current relationship?: Yes Is there a partner from a previous relationship who is making you feel unsafe now?: No Are you made to feel afraid or neglected: No Advance Directives: Yes Advance Directives on File: Yes Advance Directives Date on File: 01/17/24 Do you have a plan to hurt others: No Plan Recently lost weight without trying: No How much weight loss: Not applicable Eating poorly because of decreased appetite: No Nutrition screen score: 0 Nutrition Risks: No Nutritional Risk Poor oral hygiene: No service: No Current occupational status: employed 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 HEENT: ?NC, AT. MMM. EOMI, clear conjunctiva, oropharynx clear. NECK: ?Supple without lymphadenopathy.? No stiffness or restricted ROM. HEART:? Tachycardic rate and regular rhythm, normal S1/S2, no m/r/g LUNGS:? Moderate expiratory wheeze throughout all lung joseph, diminished lung sounds of bilateral lung bases ABDOMEN: Large rotund abdomen, no rigidity, no tenderness BACK: No CVAT, no obvious deformity. EXTREMITIES: ?Without cyanosis, clubbing. Non-pitting edema of B/L LE NEUROLOGICAL: ?Grossly nonfocal. Alert and oriented, moving all 4 extremities. Skin: ?Warm and dry without any rash. Medications Administered Generic Name Dose Route Start Last Admin Trade Name Orquidea PRN Reason Stop Dose Admin Albuterol Sulfate 2.5 mg 03/23/25 16:00 03/23/25 15:29 Albuterol Sulfate (0.083%) 2.5 Mg/3 Ml Vial.Neb INHALE 2.5 mg RQ4H WHILE AWAKE MILES Administration Azithromycin 500 mg/ Sodium 250 mls @ 125 mls/hr 03/23/25 15:00 03/23/25 18:17 Chloride IV Infused Q24H MILES Infusion Insulin Human Lispro 0 unit 03/23/25 16:30 03/23/25 16:42 Insulin Lispro 100 Unit/Ml 3 Ml Vial SUBCUT 2 unit QIDACHS MILES Administration Protocol Sodium Chloride 3 ml 03/23/25 16:00 03/23/25 16:43 0.9 % Sodium Chloride Flush 3 Ml Syringe IVFLUSH 3 ml QSHIFT MILES Administration Discontinued Medications Generic Name Dose Route Start Last Admin Trade Name Redq PRN Reason Stop Dose Admin Ceftriaxone Sodium 1 gm 03/23/25 11:30 03/23/25 11:50 Ceftriaxone Sodium 1 Gm Vial IVPUSH 03/23/25 11:31 1 gm ONCE ONE Administration Albuterol Sulfate 5 mg/ 0 mg 03/23/25 09:39 03/23/25 09:46 Albuterol/Ipratropium 3 ml INHALE 03/23/25 09:40 1 each ONCE ONE Administration Heparin Sodium (Porcine) 5,000 unit 03/23/25 14:00 03/23/25 16:42 Heparin Sodium,Porcine 5,000 Unit/Ml Vial SUBCUT Not Given Q12H MILES Magnesium Sulfate 2 gm in 50 mls @ 150 mls/hr 03/23/25 09:22 03/23/25 11:02 Magnesium Sulfate/H2o IV 03/23/25 09:41 Infused ONCE ONE Infusion Lactated Ringer's 1,000 mls @ 999 mls/hr 03/23/25 10:29 03/23/25 13:40 Lr IV 03/23/25 11:29 Infused .Q1H1M ONE Infusion Iohexol 100 ml 03/23/25 11:34 03/23/25 11:35 Iohexol 350 Mg/Ml 100 Ml Infus..Btl IV 03/23/25 11:35 65 ml ONCE ONE Administration Methylprednisolone Sodium Succinate 125 mg 03/23/25 09:22 03/23/25 10:04 Methylprednisolone Sod Succ 125 Mg/2 Ml Vial IVPUSH 03/23/25 09:23 125 mg ONCE ONE Administration Medical Decision Making Medical Decision Making MDM Narrative: 9-year-old male with medical history of obesity, T2DM, COPD, chronic hypoxic hypercarbic respiratory failure on 2 L nasal cannula baseline, KIRILL on BiPAP, HTN, GERD, diverticulitis s/p colostomy w/reversal in 2021 presents to the ED due to 1 day of SOB and difficulty 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 Patient tried using nebulizer treatment, 2L oxygen, Cpap last night, and 20mg prednisone this morning without improvement of symptoms. SOB is worse when ambulating. VS on initial observation-BP 142/78, pulse rate of 103, respiratory rate of 21, afebrile with oral temp of 98.4, O2 saturation 95% on 2 L NC. On physical exam lungs with expiratory wheeze throughout all lung joseph, diminished lung sounds in bilateral bases, no notable accessory muscle use. Patient with B/L calf tenderness, positive Homans sign of bilateral extremities, with nonpitting edema, no erythema, no warmth or overlying skin changes. Patient with history of Falk's palsy approximately 8 weeks ago, has right-sided facial deficits, no other neurological deficits noted. Plan: labs, EKG, CXR, US B/L LE, bronchodilator protocol, 2gm magnesium, 125mg solumedrol Course 10:47- Patient without improvement after 5mg ventolin, mag and solumedrol, 1 L IV fluids Labs without leukocytosis/leukopenia, H&H stable, elevated HC03 at 31, however this appears to be around patient's baseline, without electrolyte abnormality, BNP WNL at <10 CXR without cardiomegaly, pulmonary effusion, pulmonary edema however there is an infiltrate of the right lower lobe. U/S of B/L LE is negative for DVT. D-dimer resulted back at 296, age adjusted D-dimer cut off is 285. Will evaluate this further with CTA chest 11:50- At 11:50 a.m. on 03/23/2025 I suspected pulmonary infection and medicated patient with 1 g ceftriaxone. CTA without evidence of pulmonary embolism. Patient with persistent tachycardia, tachypnea, hypoxia on 2 L oxygen. I reached out to hospitalist ZHENG Braden who will admit patient to medicine. , Differential Diagnosis Differential Diagnoses: The differential diagnosis associated with the presentation includes Pulmonary embolism DVT CHF Dysrhythmia Electrolyte abnormality COPD exacerbation Admission/Observation Consideration of admission/observation: Escalation of care including admission/observation considered Consult Healthcare Provider Management of the patient was discussed with: Hospitalist (ZHENG Braden) Lab Data MDM Lab Attestation statement: I reviewed the patient's lab results. 03/23/25 08:59 03/23/25 08:59 Labs: Lab Results 03/23/25 03/23/25 03/23/25 Range/Units 08:59 09:04 09:34 WBC 8.4 (4.8-10.8) X10*3/uL RBC 4.57 L (4.60-5.80) X10*6/uL Hgb 13.2 L (14.0-18.0) g/dl Hct 40.3 L (42.0-52.0) % MCV 88.2 (80.0-98.0) fL MCH 28.9 (27.0-33.0) pg MCHC 32.8 (31.0-36.0) g/dl RDW 15.7 (11.0-16.0) % Plt Count 334 (160-400) X10*3/uL MPV 9.3 L (9.4-12.4) fL Immature Gran % (Auto) 0.4 (0.0-0.4) % Neut % (Auto) 78.2 H (45-73) % Lymph % (Auto) 15.9 L (20-40) % Reynolds % (Auto) 3.8 (2-11) % Eos % (Auto) 1.2 (0-4) % Baso % (Auto) 0.5 (0-2) % Lymph # (Auto) 1.3 (1.2-4.9) X10*3/uL Reynolds # (Auto) 0.3 (0.1-1.2) X10*3/uL Eos # (Auto) 0.1 (0.0-0.4) X10*3/uL Baso # (Auto) 0.0 (0.0-0.2) X10*3/uL Abs Immat Gran (auto) 0.03 (0.00-0.03) X10*3/uL Absolute Neuts (auto) 6.6 (2.0-8.3) x10*3/uL Absolute Nucleated RBC 0.000 (0.0-0.012) X10*3/uL Nucleated RBC % (auto) 0.0 (0.0-0.2) /100WBC D-Dimer High Sensitivty 296 NG/ML VBG pH 7.39 (7.32-7.43) VBG pCO2 51 mmHg VBG pO2 66 mmHg VBG HCO3 31 H (22-26) mmol/L VBG O2 Saturation 91.0 % VBG Base Excess 5.6 mmol/L Sodium 140 (135-145) mmol/L Potassium 4.1 (3.3-5.1) mmol/L Chloride 104 (96-108) mmol/L Carbon Dioxide 29 (22-29) mmol/L Anion Gap 11 L (12-20) BUN 9 (9-16) mg/dL Creatinine 1.04 (0.5-1.4) mg/dL Estim Creat Clear Calc 106.0 Estimated GFR > 60 Random Glucose 124 H (60-115) mg/dL Lactic Acid (0.5-2.0) mmol/L Calcium 9.2 (8.4-10.2) mg/dL Total Bilirubin 0.3 (0.0-1.0) mg/dL AST 20 (5-37) U/L ALT 14 (0-40) U/L Alkaline Phosphatase 101 (39-117) U/L B-Natriuretic Peptide < 10 (<100) pg/mL Total Protein 7.5 (6.5-8.0) g/dL Albumin 3.8 (3.5-5.0) g/dL 03/23/25 Range/Units 11:17 WBC (4.8-10.8) X10*3/uL RBC (4.60-5.80) X10*6/uL Hgb (14.0-18.0) g/dl Hct (42.0-52.0) % MCV (80.0-98.0) fL MCH (27.0-33.0) pg MCHC (31.0-36.0) g/dl RDW (11.0-16.0) % Plt Count (160-400) X10*3/uL MPV (9.4-12.4) fL Immature Gran % (Auto) (0.0-0.4) % Neut % (Auto) (45-73) % Lymph % (Auto) (20-40) % Reynolds % (Auto) (2-11) % Eos % (Auto) (0-4) % Baso % (Auto) (0-2) % Lymph # (Auto) (1.2-4.9) X10*3/uL Reynolds # (Auto) (0.1-1.2) X10*3/uL Eos # (Auto) (0.0-0.4) X10*3/uL Baso # (Auto) (0.0-0.2) X10*3/uL Abs Immat Gran (auto) (0.00-0.03) X10*3/uL Absolute Neuts (auto) (2.0-8.3) x10*3/uL Absolute Nucleated RBC (0.0-0.012) X10*3/uL Nucleated RBC % (auto) (0.0-0.2) /100WBC D-Dimer High Sensitivty NG/ML VBG pH (7.32-7.43) VBG pCO2 mmHg VBG pO2 mmHg VBG HCO3 (22-26) mmol/L VBG O2 Saturation % VBG Base Excess mmol/L Sodium (135-145) mmol/L Potassium (3.3-5.1) mmol/L Chloride (96-108) mmol/L Carbon Dioxide (22-29) mmol/L Anion Gap (12-20) BUN (9-16) mg/dL Creatinine (0.5-1.4) mg/dL Estim Creat Clear Calc Estimated GFR Random Glucose (60-115) mg/dL Lactic Acid 1.7 (0.5-2.0) mmol/L Calcium (8.4-10.2) mg/dL Total Bilirubin (0.0-1.0) mg/dL AST (5-37) U/L ALT (0-40) U/L Alkaline Phosphatase (39-117) U/L B-Natriuretic Peptide (<100) pg/mL Total Protein (6.5-8.0) g/dL Albumin (3.5-5.0) g/dL Independent Interpretation Interpretation: I personally interpreted the EKG which shows sinus tachycardia, no ST-elevation/depression, T-wave abnormality, no change when compared to prior Vent. Rate : 113 BPM Atrial Rate : 113 BPM P-R Int : 136 ms QRS Dur : 84 ms QT Int : 352 ms P-R-T Axes : 58 51 57 degrees QTcB Int : 482 ms Sinus tachycardia Inferior infarct (cited on or before 01-Mar-2025) Abnormal ECG When compared with ECG of 01-Mar-2025 09:22, No significant change was found I personally interpreted the CXR which revealed a normal cardiomediastinal silhouette, no pleural effusion, pulmonary edema, questionable lower lobe infiltrate on the right side, I agree with the radiologist's interpretation Radiology Impression Discussion of test interpretation with radiology: I have reviewed the radiologist's reading. Critical Care Time Critical Care Time Total Critical Care Time: 67 Attestation: I personally provided 67 minutes of critical care time to this patient for the evaluation and management of hypoxia. Critical care was necessary to treat or prevent imminent deterioration. Interventions included review of labs and imaging, ordering and titration of medications, hemodynamic and clinical monitoring, frequent reassessments, coordination of care with nursing staff and consultants, and documentation. Discharge Plan Discharge Patient Disposition: Admitted As Inpatient Interventions: Admission Worksheet (ED) Last Done: 03/23/25 12:41
[2025-03-23 09:14] LABS: Venous Blood Gas Refer to POC result
[2025-03-23 09:26] LABS: Alanine Aminotransferase 14 U/L (0-40); Albumin Level 3.8 g/dL (3.5-5.0); Alkaline Phosphatase 101 U/L (39-117); Anion Gap 11 (12-20); Aspartate Amino Transferase 20 U/L (5-37); Blood Urea Nitrogen 9 mg/dL (9-16); Calcium 9.2 mg/dL (8.4-10.2); Carbon Dioxide 29 mmol/L (22-29); Chloride 104 mmol/L (96-108); Creatinine Clr Calc Pharmacy 106.0; Estimated Glomerular Filt Rate > 60; Potassium 4.1 mmol/L (3.3-5.1); Sodium 140 mmol/L (135-145); Total Protein 7.5 g/dL (6.5-8.0)
[2025-03-23 09:30] LABS: B Type Natriuretic Peptide < 10 pg/mL (<100)
[2025-03-23] MEDS: Albuterol Sulfate 5 MG, Albuterol/Iprat 2.5/0.5MG 3 ML 3 ML INHALE (09:46)
[2025-03-23] MEDS: Magnesium Sulfate/H2O 2 GM/50 ML PIGGYBACK IV (10:05)
[2025-03-23 10:16] LABS: D Dimer High Sensitivity 296 NG/ML
[2025-03-23] MEDS: Lactated Ringers 1,000 ML 999 ML IV (11:01)
[2025-03-23] MEDS: iohexoL 350 MG/ML 100 ML INFUS..BTL IV (11:35)
--- NOTE | 2025-03-23 14:04 | PM.IMHP ---
History of Present Illness Date of Service: 03/23/25 Chief Complaint: COPD 59-year-old who presented to the ER with complaints of worsening shortness of breath. Patient was at work last night and he reported that he smelled ?better? and started to feel short of breath and having difficulty breathing. He has a nebulizer machine and gave himself a treatment without relief. He went home and put himself on his baseline oxygen and used a CPAP. He had difficulty sleeping overnight and he did take a 20 mg tab of prednisone this morning without any relief and he decided to come to the ER to be evaluated. He denied any fever, chills, nausea, vomiting, diarrhea, sick contacts, recent travel. He did notice some bilateral lower extremity heaviness and venous Doppler ultrasound was negative for DVT. Chest CTA was negative for pneumonia or PE. Flu, COVID, RSV negative. Patient received a dose of IV magnesium, Solu-Medrol, albuterol, 1 L of IV fluid, Rocephin in the ER. He will be admitted for further management and treatment of acute on chronic respiratory failure secondary to COPD exacerbation. Review of Systems Review of Systems: Denies any recent fever chills or decrease in appetite respiratory denies see HPI cardiovascular denied chest pain gastrointestinal denies any dysphagia abdominal pain nausea vomiting or diarrhea genitourinary denies any dysuria frequency or hematuria musculoskeletal denies any joint pain or swelling neuropsych denies any weakness or seizures all other systems reviewed are negative [facility] Medical History Morbid obesity Diabetes mellitus KIRILL (obstructive sleep apnea) Smoker COPD (chronic obstructive pulmonary disease) HTN (hypertension) Acid reflux Diverticulitis Family History Mother Diabetes Arthritis Sleep apnea COPD (chronic obstructive pulmonary disease) Father Stomach cancer Diabetes Arthritis Sister Arthritis Surgical History Hx of colonoscopy History of colostomy reversal H/O colostomy Social History Household Members: Family Household Members Other:: and kid Housing: Apartment Housing Other:: 4th floor Do you presently have visiting nurse or other home services: No Unable to assess alcohol history related to: Unknown Alcohol intake: former Comment: at bedside Patient Tobacco Use Status: Former Tobacco user Tobacco use type: Cigarette Cigarette Packs Per Day: 1 Cigarettes Per Day: 13 Years Smoked: 60 Smoked in Last 30 Days: No e-Cigarette/Vaping Use: Never Used Second Hand Smoke Exposure: No Use of substances other than those prescribed or required for medical reasons: No Advance Directives: Yes Advance Directives on File: Yes Advance Directives Date on File: 01/17/24 service: No Current occupational status: employed Current occupation: [employer] Allergies Allergy/AdvReac Type Severity Reaction Status Date / Time No Known Allergies Allergy Unknown Verified 03/23/25 08:26 Active Medications: Current Medications Acetaminophen (Acetaminophen 325 Mg Tablet) 650 mg PO Q6H PRN PRN Reason: Pain, Mild 1-3,fever,headache Albuterol Sulfate (Albuterol Sulfate (0.083%) 2.5 Mg/3 Ml Vial.Neb) 2.5 mg INHALE RQ4H WHILE AWAKE MILES Calcium Carbonate (Calcium Carbonate 750 Mg Tab.Chew) 750 mg PO Q4H PRN PRN Reason: Heartburn Heparin Sodium (Porcine) (Heparin Sodium,Porcine 5,000 Unit/Ml Vial) 5,000 unit SUBCUT Q12H [facility] Azithromycin 500 mg/ Sodium (Chloride) 250 mls @ 125 mls/hr IV Q24H [facility] Magnesium Hydroxide (Milk Of Magnesia 30 Ml Oral.Susp) 30 ml PO DAILY PRN PRN Reason: Constipation Melatonin (Melatonin 3 Mg Tablet) 6 mg PO BEDTIME PRN PRN Reason: Insomnia Methylprednisolone Sodium Succinate (Methylprednisolone Sod Succ 40 Mg/Ml Vial) 40 mg IVPUSH Q12H MILES Ondansetron HCl (Ondansetron Hcl 4 Mg/2 Ml Vial) 4 mg IVPUSH Q8H PRN PRN Reason: Nausea and Vomiting Sodium Chloride (0.9 % Sodium Chloride Flush 3 Ml Syringe) 3 ml IVFLUSH QSHIFT [facility] Home Medications ?Medication ?Instructions ?Recorded ?Confirmed ?Last Taken ?Type acetaminophen 500 mg tablet 1,000 mg PO DAILY PRN Pain 12/09/23 03/23/25 11/20/24 History albuterol sulfate 90 mcg/actuation 2 inh inhalation Q4H PRN shortness 12/09/23 03/23/25 11/21/24 History aerosol inhaler of breath or wheezing polyethylene glycol 3350 17 17 g PO BEDTIME 12/09/23 03/23/25 03/22/25 History gram/dose oral powder (Miralax) calcium carbonate 550 mg-magnesium 3 - 4 tab PO Q2H PRN Heartburn 11/21/24 03/23/25 11/20/24 History hydroxide 110 mg chewable tablet theophylline 400 mg 400 mg PO DAILY@0800 11/21/24 03/23/25 03/23/25 History tablet,extended release 24 hr Physical Exam Vital Signs and Narrative: Vital Signs: Last Vital Signs Temp 98.4 F 03/23/25 10:00 Pulse 103 H 03/23/25 10:00 Resp 21 H 03/23/25 10:00 BP 142/78 H 03/23/25 10:00 Pulse Ox 95 03/23/25 10:00 O2 Del Method Nasal Cannula 03/23/25 10:00 O2 Flow Rate 2 03/23/25 10:00 BMI result Body Mass Index 45.8 Appearing in no acute distress head is normocephalic atraumatic eyes pupils are PERRLA sclera is anicteric mouth throat mucous membranes are intact and moist neck is supple no lymphadenopathy, no JVD noted lung sounds are clear to auscultation heart regular rate rhythm, clear S1, S2 positive bowel sounds, abdomen is soft, nontender neuro patient is alert x3, no focal deficits Results Labs 03/23/25 08:59 03/23/25 08:59 Labs: Laboratory Results - last 24 hr 03/23/25 03/23/25 03/23/25 08:59 09:04 09:34 MCV 88.2 MCH 28.9 MCHC 32.8 RDW 15.7 Plt Count 334 MPV 9.3 L Immature Gran % (Auto) 0.4 Neut % (Auto) 78.2 H Lymph % (Auto) 15.9 L Dyer % (Auto) 3.8 Eos % (Auto) 1.2 Baso % (Auto) 0.5 Lymph # (Auto) 1.3 Dyer # (Auto) 0.3 Eos # (Auto) 0.1 Baso # (Auto) 0.0 Abs Immat Gran (auto) 0.03 Absolute Neuts (auto) 6.6 Absolute Nucleated RBC 0.000 Nucleated RBC % (auto) 0.0 D-Dimer High Sensitivty 296 VBG pH 7.39 VBG pCO2 51 VBG pO2 66 VBG HCO3 31 H VBG O2 Saturation 91.0 VBG Base Excess 5.6 Anion Gap 11 L Estim Creat Clear Calc 106.0 Estimated GFR > 60 Random Glucose 124 H Lactic Acid Calcium 9.2 Total Bilirubin 0.3 AST 20 ALT 14 Alkaline Phosphatase 101 B-Natriuretic Peptide < 10 Total Protein 7.5 Albumin 3.8 03/23/25 11:17 MCV MCH MCHC RDW Plt Count MPV Immature Gran % (Auto) Neut % (Auto) Lymph % (Auto) Dyer % (Auto) Eos % (Auto) Baso % (Auto) Lymph # (Auto) Dyer # (Auto) Eos # (Auto) Baso # (Auto) Abs Immat Gran (auto) Absolute Neuts (auto) Absolute Nucleated RBC Nucleated RBC % (auto) D-Dimer High Sensitivty VBG pH VBG pCO2 VBG pO2 VBG HCO3 VBG O2 Saturation VBG Base Excess Anion Gap Estim Creat Clear Calc Estimated GFR Random Glucose Lactic Acid 1.7 Calcium Total Bilirubin AST ALT Alkaline Phosphatase B-Natriuretic Peptide Total Protein Albumin Assessment and Plan (1) Dyspnea on exertion: Status: Acute Plan 59 year old man admitted with COPD exacerbation Acute on chronic respiratory failure secondary to COPD exacerbation Chest CTA neg for PE, PNA Scheduled duonebs, IV steroids Azithromycin On baseline oxygen 2 L, continue Supplemental oxygen to keep o2 sat > 91% RPP pending Diabetes mellitus type 2 Ss, ada diet Obstructive sleep apnea CPAP at bedtime Smoker Discussed importance of smoking cessation NRT offered Hypertension stable BP continue lasix Morbid obesity. BMI 45.8 Discussed importance of weight management as this may be contributing to worsening of other comorbidities DVT prophylaxis with heparin Full code Quality Stroke Does the patient have a stroke diagnosis?: No VTE Prior VTE?: No VTE Risk Level:: Medical - moderate - high VTE Device Contraindication: Treatment Not Indicated VTE Drug Contraindication: N/A - Med Ordered
--- NOTE | 2025-03-23 14:52 | PHA.MEDREC ---
Addendum entered by Sarah Weldon jud 03/23/25 14:55: Reviewed by pharmacist Original Note: Pharmacy Consult ? Medication Reconciliation Pharmacy has completed the medication reconciliation. med rec complete. poke to patient. Compared to pharmacy claim history and talked to pt . Confirmed no longer taking Wegovy due to insurance.
[2025-03-23] MEDS: Albuterol Sulfate (0.083%) 2.5 MG/3 ML VIAL.NEB INHALE ×2 (15:29→19:42)
[2025-03-23] MEDS: 0.9 % Sodium Chloride Flush 3 ML SYRINGE IVFLUSH ×2 (16:43→20:38)
[2025-03-23 16:53] LABS: Glucose, Whole Blood 175 mg/dL (60-115)
[2025-03-23 17:56] LABS: Glucose, Whole Blood 226 mg/dL (60-115)
[2025-03-23 20:20] LABS: Glucose, Whole Blood 213 mg/dL (60-115)
[2025-03-24] VITALS (10 sets, daily range): BP systolic 119–144; BP diastolic 77–91; PULSE 67–99; RESP 16–24; TEMP 36.3–36.8; O2SAT 91–99
[2025-03-24 07:34] LABS: Glucose, Whole Blood 123 mg/dL (60-115)
[2025-03-24] MEDS: Albuterol Sulfate (0.083%) 2.5 MG/3 ML VIAL.NEB INHALE ×4 (08:11→20:19)
[2025-03-24] MEDS: Furosemide 40 MG/4 ML VIAL IVPUSH (08:15)
[2025-03-24] MEDS: 0.9 % Sodium Chloride Flush 3 ML SYRINGE IVFLUSH ×3 (08:16→21:00)
--- NOTE | 2025-03-24 08:29 | HO.PM.IMPN ---
Subjective Subjective Date of Service: 03/24/25 Review of Systems Follow up COPD exacerbation better still some wheezing Physical Exam Exam: Exam: Appearing in no acute distress lung sounds exp wheezing heart regular rate rhythm, clear S1, S2 positive bowel sounds, abdomen is soft, nontender neuro patient is alert x3, no focal deficits Vital Signs: Vital Signs: Last Vital Signs Temp 98.1 F 03/24/25 07:25 Pulse 83 03/24/25 08:14 Resp 20 03/24/25 08:14 BP 119/79 03/24/25 07:25 Pulse Ox 96 03/24/25 07:25 O2 Del Method Room Air 03/24/25 07:25 O2 Flow Rate 2.0 03/24/25 07:18 BMI result Body Mass Index 46.2 Objective Data Active Medications Acetaminophen (Acetaminophen 325 Mg Tablet) 650 mg PO Q6H PRN PRN Reason: Pain, Mild 1-3,fever,headache Albuterol Sulfate (Albuterol Sulfate (0.083%) 2.5 Mg/3 Ml Vial.Neb) 2.5 mg INHALE RQ4H WHILE AWAKE [facility] Last Admin: 03/24/25 08:11 Dose: 2.5 mg Documented By: ROSA M Calcium Carbonate (Calcium Carbonate 750 Mg Tab.Chew) 750 mg PO Q4H PRN PRN Reason: Heartburn Dextrose (Dextrose 50 % 25 Gm/50 Ml Syringe) 25 gm IVPUSH Q15M PRN; Protocol PRN Reason: per Hypoglycemia Standing Ord. Furosemide (Furosemide 40 Mg/4 Ml Vial) 40 mg IVPUSH DAILY [facility]; Protocol Last Admin: 03/24/25 08:15 Dose: 40 mg Documented By: WM Glucose (Glucose Gel 15 Gm Gel..Gram.) 15 gm PO Q15M PRN; Protocol PRN Reason: per Hypoglycemia Standing Ord. Heparin Sodium (Porcine) (Heparin Sodium,Porcine 5,000 Unit/Ml Vial) 5,000 unit SUBCUT Q12H [facility] Last Admin: 03/24/25 08:15 Dose: 5,000 unit Documented By: WM Azithromycin 500 mg/ Sodium (Chloride) 250 mls @ 125 mls/hr IV Q24H [facility] Last Infusion: 03/23/25 18:17 Dose: Infused Documented By: WM Insulin Human Lispro (Insulin Lispro 100 Unit/Ml 3 Ml Vial) 0 unit SUBCUT QIDACHS [facility]; Protocol Last Admin: 03/24/25 07:44 Dose: Not Given Documented By: WM Non-Admin Reason: No Insulin Coverage Magnesium Hydroxide (Milk Of Magnesia 30 Ml Oral.Susp) 30 ml PO DAILY PRN PRN Reason: Constipation Melatonin (Melatonin 3 Mg Tablet) 6 mg PO BEDTIME PRN PRN Reason: Insomnia Methylprednisolone Sodium Succinate (Methylprednisolone Sod Succ 40 Mg/Ml Vial) 40 mg IVPUSH Q12H [facility] Last Admin: 03/24/25 05:40 Dose: 40 mg Documented By: KISHAN Nicotine Polacrilex (Nicotine Polacrilex 2 Mg Gum) 2 mg BUCCAL Q1H PRN PRN Reason: Nicotine Cravings Ondansetron HCl (Ondansetron Hcl 4 Mg/2 Ml Vial) 4 mg IVPUSH Q8H PRN PRN Reason: Nausea and Vomiting Polyethylene Glycol (Polyethylene Glycol 3350 17 Gm Powd.Pack) 17 gm PO BEDTIME [facility] Last Admin: 03/23/25 20:38 Dose: 17 gm Documented By: KISHAN Sodium Chloride (0.9 % Sodium Chloride Flush 3 Ml Syringe) 3 ml IVFLUSH QSHIFT [facility] Last Admin: 03/24/25 08:16 Dose: 3 ml Documented By: WM Labs 03/23/25 08:59 03/23/25 08:59 Labs: Laboratory Results - last 24 hr 03/23/25 03/23/25 03/23/25 08:59 09:04 09:34 MCV 88.2 MCH 28.9 MCHC 32.8 RDW 15.7 Plt Count 334 MPV 9.3 L Immature Gran % (Auto) 0.4 Neut % (Auto) 78.2 H Lymph % (Auto) 15.9 L [place] % (Auto) 3.8 Eos % (Auto) 1.2 Baso % (Auto) 0.5 Lymph # (Auto) 1.3 [place] # (Auto) 0.3 Eos # (Auto) 0.1 Baso # (Auto) 0.0 Abs Immat Gran (auto) 0.03 Absolute Neuts (auto) 6.6 Absolute Nucleated RBC 0.000 Nucleated RBC % (auto) 0.0 D-Dimer High Sensitivty 296 VBG pH 7.39 VBG pCO2 51 VBG pO2 66 VBG HCO3 31 H VBG O2 Saturation 91.0 VBG Base Excess 5.6 Anion Gap 11 L Estim Creat Clear Calc 106.0 Estimated GFR > 60 POC Glucose Random Glucose 124 H Lactic Acid Calcium 9.2 Total Bilirubin 0.3 AST 20 ALT 14 Alkaline Phosphatase 101 B-Natriuretic Peptide < 10 Total Protein 7.5 Albumin 3.8 03/23/25 03/23/25 03/23/25 11:17 16:40 17:52 MCV MCH MCHC RDW Plt Count MPV Immature Gran % (Auto) Neut % (Auto) Lymph % (Auto) [place] % (Auto) Eos % (Auto) Baso % (Auto) Lymph # (Auto) [place] # (Auto) Eos # (Auto) Baso # (Auto) Abs Immat Gran (auto) Absolute Neuts (auto) Absolute Nucleated RBC Nucleated RBC % (auto) D-Dimer High Sensitivty VBG pH VBG pCO2 VBG pO2 VBG HCO3 VBG O2 Saturation VBG Base Excess Anion Gap Estim Creat Clear Calc Estimated GFR POC Glucose 175 H 226 H Random Glucose Lactic Acid 1.7 Calcium Total Bilirubin AST ALT Alkaline Phosphatase B-Natriuretic Peptide Total Protein Albumin 03/23/25 03/24/25 20:07 07:21 MCV MCH MCHC RDW Plt Count MPV Immature Gran % (Auto) Neut % (Auto) Lymph % (Auto) [place] % (Auto) Eos % (Auto) Baso % (Auto) Lymph # (Auto) [place] # (Auto) Eos # (Auto) Baso # (Auto) Abs Immat Gran (auto) Absolute Neuts (auto) Absolute Nucleated RBC Nucleated RBC % (auto) D-Dimer High Sensitivty VBG pH VBG pCO2 VBG pO2 VBG HCO3 VBG O2 Saturation VBG Base Excess Anion Gap Estim Creat Clear Calc Estimated GFR POC Glucose 213 H 123 H Random Glucose Lactic Acid Calcium Total Bilirubin AST ALT Alkaline Phosphatase B-Natriuretic Peptide Total Protein Albumin Assessment and Plan (1) COPD (chronic obstructive pulmonary disease): Status: Acute Plan 59 year old man admitted with COPD exacerbation Acute on chronic respiratory failure secondary to COPD exacerbation Chest CTA neg for PE, PNA Scheduled duonebs, IV steroids Azithromycin On baseline oxygen 2 L, continue Supplemental oxygen to keep o2 sat > 91% RPP pending Diabetes mellitus type 2 Ss, ada diet Obstructive sleep apnea CPAP at bedtime Smoker Discussed importance of smoking cessation NRT offered Hypertension stable BP continue IV lasix for now for edema Morbid obesity. BMI 46.2 Discussed importance of weight management as this may be contributing to worsening of other comorbidities DVT prophylaxis with heparin Full code Quality Stroke Does the patient have a stroke diagnosis?: No VTE Prior VTE?: No VTE Risk Level:: Medical - moderate - high VTE Device Contraindication: Treatment Not Indicated VTE Drug Contraindication: N/A - Med Ordered
[2025-03-24 09:19] LABS: MANUAL DIFF FLAG NO
[2025-03-24 09:26] LABS: Hematocrit 42.3 % (42.0-52.0); Hemoglobin 13.0 g/dl (14.0-18.0); Imm Gran Abs Auto 0.11 X10*3/uL (0.00-0.03); Imm Gran Pct Auto 0.8 % (0.0-0.4); Lymphocytes Absolute Auto 1.3 X10*3/uL (1.2-4.9); Mean Corpuscular HGB Conc 30.7 g/dl (31.0-36.0); Mean Corpuscular Hemoglobin 28.4 pg (27.0-33.0); Mean Corpuscular Volume 92.4 fL (80.0-98.0); NRBC Abs Auto 0.000 X10*3/uL (0.0-0.012); NRBC Pct Auto 0.0 /100WBC (0.0-0.2); Platelet Count 370 X10*3/uL (160-400); Red Blood Count 4.58 X10*6/uL (4.60-5.80); White Blood Count 14.0 X10*3/uL (4.8-10.8)
[2025-03-24 09:52] LABS: Anion Gap 15 (12-20); Blood Urea Nitrogen 14 mg/dL (9-16); Calcium 9.4 mg/dL (8.4-10.2); Carbon Dioxide 29 mmol/L (22-29); Chloride 102 mmol/L (96-108); Creatinine Clr Calc Pharmacy 126.0; Estimated Glomerular Filt Rate > 60; Potassium 5.6 mmol/L (3.3-5.1); Sodium 140 mmol/L (135-145)
[2025-03-24 11:22] LABS: Glucose, Whole Blood 172 mg/dL (60-115)
[2025-03-24 11:34] LABS: Chlamydia pneumoniae PCR Not Detected (Not Detect.); Coronavirus 229E PCR Not Detected (Not Detect.); Coronavirus HKU1 PCR Not Detected (Not Detect.); Coronavirus NL63 PCR Not Detected (Not Detect.); Coronavirus OC43 PCR Not Detected (Not Detect.); RSV PCR Not Detected (Not Detect.); Rhino/Enterovirus PCR Not Detected (Not Detect.); SARS-CoV-2 PCR Not Detected (Not Detect.)
[2025-03-24 12:59] LABS: Influenza A H1 PCR Not Detected (Not Detect.); Influenza A H1-2009 PCR Not Detected (Not Detect.); Influenza A H3 PCR Not Detected (Not Detect.)
--- NOTE | 2025-03-24 15:49 | MHC.CM.PN ---
PT REPORTS HE LIVES WITH HIS AND IS INDEPENDENT WITH CARE HE HAS HOME O2 AND A BIPAP FROM [facility] ON FILE PCP: DIANE KURTZ DCP: HOME VIA PRIVATE TRANSPORT
[2025-03-24 16:21] LABS: Glucose, Whole Blood 141 mg/dL (60-115)
[2025-03-24 20:44] LABS: Glucose, Whole Blood 120 mg/dL (60-115)
[2025-03-25] VITALS (10 sets, daily range): BP systolic 136–147; BP diastolic 72–81; PULSE 67–93; RESP 18–20; TEMP 36.2–36.6; O2SAT 91–97
[2025-03-25] MEDS: Albuterol Sulfate (0.083%) 2.5 MG/3 ML VIAL.NEB INHALE ×4 (07:45→19:44)
[2025-03-25] MEDS: Furosemide 40 MG/4 ML VIAL IVPUSH (07:54)
[2025-03-25] MEDS: 0.9 % Sodium Chloride Flush 3 ML SYRINGE IVFLUSH ×3 (07:55→21:12)
[2025-03-25 08:07] LABS: Glucose, Whole Blood 132 mg/dL (60-115)
--- NOTE | 2025-03-25 08:42 | P.PNIM_ITS ---
Subjective Subjective Date of Service: 03/25/25 Review of Systems Follow up COPD exacerbation better still some wheezing Physical Exam 2 Exam: Exam: Appearing in no acute distress lung sounds mild exp wheezing, tight heart regular rate rhythm, clear S1, S2 positive bowel sounds, abdomen is soft, nontender neuro patient is alert x3, no focal deficits Vital Signs: Vital Signs: Last Vital Signs Temp 97.3 F 03/25/25 08:00 Pulse 84 03/25/25 08:00 Resp 18 03/25/25 08:00 BP 147/73 H 03/25/25 08:00 Pulse Ox 95 03/25/25 08:00 O2 Del Method Nasal Cannula 03/25/25 08:00 O2 Flow Rate 2 03/25/25 08:00 BMI result Body Mass Index 46.2 Objective Data Active Medications Acetaminophen (Acetaminophen 325 Mg Tablet) 650 mg PO Q6H PRN PRN Reason: Pain, Mild 1-3,fever,headache Albuterol Sulfate (Albuterol Sulfate (0.083%) 2.5 Mg/3 Ml Vial.Neb) 2.5 mg INHALE RQ4H WHILE AWAKE [facility] Last Admin: 03/25/25 07:45 Dose: 2.5 mg Documented By: ELHAM Calcium Carbonate (Calcium Carbonate 750 Mg Tab.Chew) 750 mg PO Q4H PRN PRN Reason: Heartburn Dextrose (Dextrose 50 % 25 Gm/50 Ml Syringe) 25 gm IVPUSH Q15M PRN; Protocol PRN Reason: per Hypoglycemia Standing Ord. Furosemide (Furosemide 40 Mg/4 Ml Vial) 40 mg IVPUSH DAILY [facility]; Protocol Last Admin: 03/25/25 07:54 Dose: 40 mg Documented By: RIKA Glucose (Glucose Gel 15 Gm Gel..Gram.) 15 gm PO Q15M PRN; Protocol PRN Reason: per Hypoglycemia Standing Ord. Heparin Sodium (Porcine) (Heparin Sodium,Porcine 5,000 Unit/Ml Vial) 5,000 unit SUBCUT Q12H [facility] Last Admin: 03/25/25 07:55 Dose: 5,000 unit Documented By: RIKA Azithromycin 500 mg/ Sodium (Chloride) 250 mls @ 125 mls/hr IV Q24H [facility] Last Infusion: 03/24/25 17:11 Dose: Infused Documented By: WM Insulin Human Lispro (Insulin Lispro 100 Unit/Ml 3 Ml Vial) 0 unit SUBCUT QIDACHS [facility]; Protocol Last Admin: 03/25/25 07:54 Dose: Not Given Documented By: RIKA Non-Admin Reason: No Insulin Coverage Magnesium Hydroxide (Milk Of Magnesia 30 Ml Oral.Susp) 30 ml PO DAILY PRN PRN Reason: Constipation Melatonin (Melatonin 3 Mg Tablet) 6 mg PO BEDTIME PRN PRN Reason: Insomnia Methylprednisolone Sodium Succinate (Methylprednisolone Sod Succ 40 Mg/Ml Vial) 40 mg IVPUSH Q12H [facility] Last Admin: 03/25/25 05:49 Dose: 40 mg Documented By: KISHAN Nicotine Polacrilex (Nicotine Polacrilex 2 Mg Gum) 2 mg BUCCAL Q1H PRN PRN Reason: Nicotine Cravings Ondansetron HCl (Ondansetron Hcl 4 Mg/2 Ml Vial) 4 mg IVPUSH Q8H PRN PRN Reason: Nausea and Vomiting Polyethylene Glycol (Polyethylene Glycol 3350 17 Gm Powd.Pack) 17 gm PO BEDTIME [facility] Last Admin: 03/24/25 20:57 Dose: 17 gm Documented By: KISHAN Sodium Chloride (0.9 % Sodium Chloride Flush 3 Ml Syringe) 3 ml IVFLUSH QSHIFT [facility] Last Admin: 03/25/25 07:55 Dose: 3 ml Documented By: RIKA Labs 03/24/25 08:22 03/25/25 08:51 Labs: Laboratory Results - last 24 hr 03/23/25 03/24/25 03/24/25 18:04 08:22 11:11 MCV 92.4 MCH 28.4 MCHC 30.7 L RDW 16.1 H Plt Count 370 MPV 9.6 Immature Gran % (Auto) 0.8 H Neut % (Auto) 85.2 H Lymph % (Auto) 9.2 L [place] % (Auto) 4.7 Eos % (Auto) 0.0 Baso % (Auto) 0.1 Lymph # (Auto) 1.3 [place] # (Auto) 0.7 Eos # (Auto) 0.0 Baso # (Auto) 0.0 Abs Immat Gran (auto) 0.11 H Absolute Neuts (auto) 11.9 H Absolute Nucleated RBC 0.000 Nucleated RBC % (auto) 0.0 Anion Gap 15 Estim Creat Clear Calc 126.0 Estimated GFR > 60 POC Glucose 172 H Random Glucose 100 Calcium 9.4 Respiratory Panel [place] See Note Adenovirus (Rapid PCR) Not Detected B.pert (TEM-PCR) Not Detected B.parapertussis DNA PCR Not Detected C. pneumoniae DNA (PCR) Not Detected Coronavirus OC43 (PCR) Not Detected Coronavirus HKU1 (PCR) Not Detected Coronavirus 229E (PCR) Not Detected Coronavirus NL63 (PCR) Not Detected Human Metapneumovir PCR Not Detected Influenza A (RT-PCR) Not Detected Influenza A (H1) PCR Not Detected Influ A (H1/) PCR Not Detected Influenza A (H3) PCR Not Detected Influenza B (RT-PCR) Not Detected M. pneumoniae (PCR) Not Detected Parainfluenza 1 (PCR) Not Detected Parainfluenza 2 (PCR) Not Detected Parainfluenza 3 (PCR) Not Detected Parainfluenza 4 (PCR) Not Detected RSV (PCR) Not Detected Entero/Rhino (PCR) Not Detected SARS-CoV-2 RNA (RT-PCR) Not Detected 03/24/25 03/24/25 03/25/25 16:13 20:14 07:45 MCV MCH MCHC RDW Plt Count MPV Immature Gran % (Auto) Neut % (Auto) Lymph % (Auto) [place] % (Auto) Eos % (Auto) Baso % (Auto) Lymph # (Auto) [place] # (Auto) Eos # (Auto) Baso # (Auto) Abs Immat Gran (auto) Absolute Neuts (auto) Absolute Nucleated RBC Nucleated RBC % (auto) Anion Gap Estim Creat Clear Calc Estimated GFR POC Glucose 141 H 120 H 132 H Random Glucose Calcium Respiratory Panel [place] Adenovirus (Rapid PCR) B.pert (TEM-PCR) B.parapertussis DNA PCR C. pneumoniae DNA (PCR) Coronavirus OC43 (PCR) Coronavirus HKU1 (PCR) Coronavirus 229E (PCR) Coronavirus NL63 (PCR) Human Metapneumovir PCR Influenza A (RT-PCR) Influenza A (H1) PCR Influ A (H1) PCR Influenza A (H3) PCR Influenza B (RT-PCR) M. pneumoniae (PCR) Parainfluenza 1 (PCR) Parainfluenza 2 (PCR) Parainfluenza 3 (PCR) Parainfluenza 4 (PCR) RSV (PCR) Entero/Rhino (PCR) SARS-CoV-2 RNA (RT-PCR) Microbiology Microbiology Results: Microbiology 03/23/25 11:17 Blood Culture - Preliminary Blood - Venous No growth after 24 hours. 03/23/25 11:17 Blood Culture - Preliminary Blood - Venous No growth after 24 hours. Assessment and Plan (1) COPD (chronic obstructive pulmonary disease): Status: Acute Plan 59 year old man admitted with COPD exacerbation Hyperkalemia Resolved with no action Acute on chronic respiratory failure secondary to COPD exacerbation Chest CTA neg for PE, PNA Scheduled duonebs, IV steroids Azithromycin On baseline oxygen 2 L, continue Supplemental oxygen to keep o2 sat > 91% RPP negative Diabetes mellitus type 2 SS, ada diet Obstructive sleep apnea CPAP at bedtime Ex Smoker stated cessation one year ago NRT offered Hypertension stable BP continue IV lasix for now for edema Morbid obesity. BMI 46.2 Discussed importance of weight management as this may be contributing to worsening of other comorbidities DVT prophylaxis with heparin Full code Quality Stroke Does the patient have a stroke diagnosis?: No VTE Prior VTE?: No VTE Risk Level:: Medical - moderate - high VTE Device Contraindication: Treatment Not Indicated VTE Drug Contraindication: N/A - Med Ordered
[2025-03-25 09:40] LABS: Potassium 4.7 mmol/L (3.3-5.1)
[2025-03-25 11:46] LABS: Glucose, Whole Blood 177 mg/dL (60-115)
[2025-03-25 16:20] LABS: Glucose, Whole Blood 135 mg/dL (60-115)
[2025-03-25 21:02] LABS: Glucose, Whole Blood 115 mg/dL (60-115)
[2025-03-26] VITALS (8 sets, daily range): BP systolic 142–155; BP diastolic 75–84; PULSE 72–96; RESP 15–20; TEMP 36.2–36.6; O2SAT 95–97
[2025-03-26 07:08] LABS: Hemoglobin A1C 161.6281 umol/L; Total Hemoglobin (HGBA1C) 3436.5197 umol/L
[2025-03-26 07:17] LABS: Blood Urea Nitrogen 18 mg/dL (9-16); Calcium 9.2 mg/dL (8.4-10.2); Creatinine Clr Calc Pharmacy 138.6; Estimated Glomerular Filt Rate > 60
[2025-03-26] MEDS: Furosemide 40 MG/4 ML VIAL IVPUSH (07:18)
[2025-03-26] MEDS: 0.9 % Sodium Chloride Flush 3 ML SYRINGE IVFLUSH ×3 (07:19→20:33)
[2025-03-26 07:24] LABS: Glucose, Whole Blood 143 mg/dL (60-115)
[2025-03-26 07:25] LABS: Anion Gap 10 (12-20); Carbon Dioxide 36 mmol/L (22-29); Chloride 100 mmol/L (96-108); Potassium 4.3 mmol/L (3.3-5.1); Sodium 142 mmol/L (135-145)
[2025-03-26] MEDS: Albuterol Sulfate (0.083%) 2.5 MG/3 ML VIAL.NEB INHALE ×4 (07:50→20:05)
--- NOTE | 2025-03-26 09:03 | PM.DS ---
DS: Providers Provider Date of Service: 03/27/25 Date of admission: 03/23/25 13:59 Date of discharge: 03/27/25 Primary care physician: Leonard Boston MD DS: Diagnosis Discharge Diagnosis (1) COPD (chronic obstructive pulmonary disease): Status: Acute DS: Summary Hospital Course Hospital Course: 59-year-old who presented to the ER with complaints of worsening shortness of breath. Patient was at work last night and he reported that he smelled ?better? and started to feel short of breath and having difficulty breathing. He has a nebulizer machine and gave himself a treatment without relief. He went home and put himself on his baseline oxygen and used a CPAP. He had difficulty sleeping overnight and he did take a 20 mg tab of prednisone this morning without any relief and he decided to come to the ER to be evaluated. He denied any fever, chills, nausea, vomiting, diarrhea, sick contacts, recent travel. He did notice some bilateral lower extremity heaviness and venous Doppler ultrasound was negative for DVT. Chest CTA was negative for pneumonia or PE. Flu, COVID, RSV negative. Patient received a dose of IV magnesium, Solu-Medrol, albuterol, 1 L of IV fluid, Rocephin in the ER. He will be admitted for further management and treatment of acute on chronic respiratory failure secondary to COPD exacerbation. 59-year-old man treated for acute on chronic respiratory failure secondary to COPD exacerbation. Chest CTA negative for PE or pneumonia. Patient was treated with scheduled DuoNebs, IV steroids, azithromycin. Patient continue his baseline oxygen of 2 L nasal cannula. RPP was negative. Plan is for patient to complete a steroid taper and azithromycin. Hypokalemia. Resolved with no action Diabetes mellitus. Continue home medications Obstructive sleep apnea. CPAP at bedtime Hypertension. Continue Lasix Morbid obesity. BMI 46.2. Discussed importance of weight management as this may be contributing to worsening of other comorbidities Time Attestation Discharge Coordination Time (in mins): 42 Quality: Safe Use of Opioids Does Pt have an Active Cancer Diagnosis on the Problem List?: No Quality: Stroke Does the patient have a stroke diagnosis?: No Physical Exam Exam: Exam: Appearing in no acute distress head is normocephalic atraumatic eyes pupils are PERRLA sclera is anicteric mouth throat mucous membranes are intact and moist neck is supple no lymphadenopathy, no JVD noted lung sounds are clear to auscultation heart regular rate rhythm, clear S1, S2 positive bowel sounds, abdomen is soft, nontender neuro patient is alert x3, no focal deficits Vital Signs: Vital Signs: Last Vital Signs Temp 97.2 F 03/26/25 07:24 Pulse 72 03/26/25 07:51 Resp 15 03/26/25 07:51 BP 155/81 H 03/26/25 07:24 Pulse Ox 95 03/26/25 07:24 O2 Del Method Nasal Cannula 03/26/25 07:24 O2 Flow Rate 2 03/26/25 07:24 BMI result Body Mass Index 46.2 DS: Data Data Completed and Pending Completed studies during hospitalization [Text1]: Procedures Assistance with Respiratory Ventilation, Less than 24 Consecutive Hours, Continuous Positive Airway Pressure (11/21/24) Labs on day of discharge: Laboratory Results - last 24 hr 03/25/25 03/25/25 03/25/25 08:51 11:31 16:06 Sodium Potassium 4.7 Chloride Carbon Dioxide Anion Gap BUN Creatinine Estim Creat Clear Calc Estimated GFR POC Glucose 177 H 135 H Random Glucose Estimat Average Glucose Hemoglobin A1c % Calcium 03/25/25 03/26/25 03/26/25 20:50 06:27 07:05 Sodium 142 Potassium 4.3 Chloride 100 Carbon Dioxide 36 H Anion Gap 10 L BUN 18 H Creatinine 0.80 Estim Creat Clear Calc 138.6 Estimated GFR > 60 POC Glucose 115 143 H Random Glucose 125 H Estimat Average Glucose 140 Hemoglobin A1c % 6.5 H Calcium 9.2 Preliminary micro results at discharge 03/23/25 11:17 Blood Culture - Preliminary Blood - Venous No growth after 48 hours. 03/23/25 11:17 Blood Culture - Preliminary Blood - Venous No growth after 48 hours. Discharge Plan Discharge Anticipated Discharge Date/Time: 03/27/25 08:30 Patient Disposition: Home, Self-Care Discharge Diagnosis: Acute on chronic respiratory failure secondary to COPD exacerbation Referrals: Leonard Boston MD [Primary Care Provider, Internal Medicine] - 1 Week Discharge Medications: New prednisone 10 mg tablet See Taper PO DIRECTED Qty: 30 0RF Taper: Prednisone 40 mg daily for 3 Days and 0 Hour 30 mg daily for 3 Days and 0 Hour 20 mg daily for 3 Days and 0 Hour 10 mg daily for 3 Days and 0 Hour Rx Instructions: see taper instructions azithromycin 500 mg tablet 500 mg PO DAILY 3 Days Qty: 3 0RF Continued furosemide 40 mg tablet 40 mg PO DAILY Qty: 90 4RF umeclidinium-vilanterol [Anoro Ellipta] 62.5-25 mcg/actuation blister with device 1 ea PO DAILY Qty: 60 6RF Rx Instructions: by inhalation Combivent Respimat 20-100 mcg/actuation mist 1 puff inhalation Q6H Qty: 1 6RF ipratropium-albuterol 0.5 mg-3 mg(2.5 mg base)/3 mL solution for nebulization 3 ml inhalation Q4-6H PRN (Reason: wheezing) Qty: 180 0RF (DME) CPAP Machine/Device Device See Rx Instructions .Route Qty: 1 0RF Rx Instructions: As directed. Auto cpap 5-20. with all supplies Length of need lifetime acetaminophen 500 mg Tablet 1,000 mg PO DAILY PRN (Reason: Pain) polyethylene glycol 3350 [Miralax] 17 gram/dose Powder 17 g PO BEDTIME albuterol sulfate 90 mcg/actuation HFA aerosol inhaler 2 inh inhalation Q4H PRN (Reason: shortness of breath or wheezing) calcium carbonate-mag hydroxid 550-110 mg Tablet,Chewable 3 - 4 tab PO Q2H PRN (Reason: Heartburn) theophylline 400 mg tablet extended release 24 hr 400 mg PO DAILY@0800 Discharge Orders: Discharge Order (Routine); Ordered 03/27/25 Ordered By: Karine Braden Diet: Advance to usual diet Activity on Discharge: As tolerated Stand Alone Forms: Patient Portal Discharge page Print Language: Ivorian Care Plan Goals: Complete steroid taper Complete antibiotic Continue on baseline insulin of 2 L nasal cannula Health Concerns: Acute on chronic respiratory failure secondary to COPD exacerbation Plan of Treatment: Follow up with the primary care provider as needed Take all medications as prescribed Assessment: See discharge summary
--- NOTE | 2025-03-26 10:59 | P.PNIM_ITS ---
Subjective Subjective Date of Service: 03/26/25 Review of Systems Follow up COPD exacerbation better still some wheezing and sob with exertion Physical Exam 2 Exam: Exam: Appearing in no acute distress lung sounds mild exp wheezing heart regular rate rhythm, clear S1, S2 positive bowel sounds, abdomen is soft, nontender neuro patient is alert x3, no focal deficits Vital Signs: Vital Signs: Last Vital Signs Temp 97.2 F 03/26/25 07:24 Pulse 72 03/26/25 07:51 Resp 15 03/26/25 07:51 BP 155/81 H 03/26/25 07:24 Pulse Ox 95 03/26/25 07:24 O2 Del Method Nasal Cannula 03/26/25 07:24 O2 Flow Rate 2 03/26/25 07:24 BMI result Body Mass Index 46.2 Objective Data Active Medications Acetaminophen (Acetaminophen 325 Mg Tablet) 650 mg PO Q6H PRN PRN Reason: Pain, Mild 1-3,fever,headache Albuterol Sulfate (Albuterol Sulfate (0.083%) 2.5 Mg/3 Ml Vial.Neb) 2.5 mg INHALE RQ4H WHILE AWAKE [facility] Last Admin: 03/26/25 07:50 Dose: 2.5 mg Documented By: CLARIBEL Calcium Carbonate (Calcium Carbonate 750 Mg Tab.Chew) 750 mg PO Q4H PRN PRN Reason: Heartburn Dextrose (Dextrose 50 % 25 Gm/50 Ml Syringe) 25 gm IVPUSH Q15M PRN; Protocol PRN Reason: per Hypoglycemia Standing Ord. Furosemide (Furosemide 40 Mg/4 Ml Vial) 40 mg IVPUSH DAILY [facility]; Protocol Last Admin: 03/26/25 07:18 Dose: 40 mg Documented By: RIKA Glucose (Glucose Gel 15 Gm Gel..Gram.) 15 gm PO Q15M PRN; Protocol PRN Reason: per Hypoglycemia Standing Ord. Heparin Sodium (Porcine) (Heparin Sodium,Porcine 5,000 Unit/Ml Vial) 5,000 unit SUBCUT Q12H [facility] Last Admin: 03/26/25 07:18 Dose: 5,000 unit Documented By: RIKA Azithromycin 500 mg/ Sodium (Chloride) 250 mls @ 125 mls/hr IV Q24H [facility] Last Infusion: 03/25/25 17:01 Dose: Infused Documented By: RIKA Insulin Human Lispro (Insulin Lispro 100 Unit/Ml 3 Ml Vial) 0 unit SUBCUT QIDACHS [facility]; Protocol Last Admin: 03/26/25 07:18 Dose: Not Given Documented By: RIKA Non-Admin Reason: No Insulin Coverage Magnesium Hydroxide (Milk Of Magnesia 30 Ml Oral.Susp) 30 ml PO DAILY PRN PRN Reason: Constipation Melatonin (Melatonin 3 Mg Tablet) 6 mg PO BEDTIME PRN PRN Reason: Insomnia Methylprednisolone Sodium Succinate (Methylprednisolone Sod Succ 40 Mg/Ml Vial) 40 mg IVPUSH Q12H [facility] Last Admin: 03/26/25 06:05 Dose: 40 mg Documented By: NATA Nicotine Polacrilex (Nicotine Polacrilex 2 Mg Gum) 2 mg BUCCAL Q1H PRN PRN Reason: Nicotine Cravings Ondansetron HCl (Ondansetron Hcl 4 Mg/2 Ml Vial) 4 mg IVPUSH Q8H PRN PRN Reason: Nausea and Vomiting Polyethylene Glycol (Polyethylene Glycol 3350 17 Gm Powd.Pack) 17 gm PO BEDTIME [facility] Last Admin: 03/25/25 21:12 Dose: 17 gm Documented By: NATA Sodium Chloride (0.9 % Sodium Chloride Flush 3 Ml Syringe) 3 ml IVFLUSH QSHIFT [facility] Last Admin: 03/26/25 07:19 Dose: 3 ml Documented By: RIKA Labs 03/24/25 08:22 03/26/25 06:27 Labs: Laboratory Results - last 24 hr 03/25/25 03/25/25 03/25/25 11:31 16:06 20:50 Anion Gap Estim Creat Clear Calc Estimated GFR POC Glucose 177 H 135 H 115 Random Glucose Estimat Average Glucose Hemoglobin A1c % Calcium 03/26/25 03/26/25 06:27 07:05 Anion Gap 10 L Estim Creat Clear Calc 138.6 Estimated GFR > 60 POC Glucose 143 H Random Glucose 125 H Estimat Average Glucose 140 Hemoglobin A1c % 6.5 H Calcium 9.2 Microbiology Microbiology Results: Microbiology 03/23/25 11:17 Blood Culture - Preliminary Blood - Venous No growth after 48 hours. 03/23/25 11:17 Blood Culture - Preliminary Blood - Venous No growth after 48 hours. Assessment and Plan (1) COPD (chronic obstructive pulmonary disease): Status: Acute Plan 59 year old man admitted with COPD exacerbation Hyperkalemia Resolved with no action Acute on chronic respiratory failure secondary to COPD exacerbation Chest CTA neg for PE, PNA Scheduled duonebs, IV steroids changed to po Azithromycin On baseline oxygen 2 L, continue Supplemental oxygen to keep o2 sat > 91% RPP negative No Diabetes mellitus type 2 AIC 6.5 no need for ss or ada diet Obstructive sleep apnea CPAP at bedtime Ex Smoker stated cessation one year ago NRT offered Hypertension stable BP continue IV lasix for now for edema Morbid obesity. BMI 46.2 Discussed importance of weight management as this may be contributing to worsening of other comorbidities DVT prophylaxis with heparin Full code Quality Stroke Does the patient have a stroke diagnosis?: No VTE Prior VTE?: No VTE Risk Level:: Medical - moderate - high VTE Device Contraindication: Treatment Not Indicated VTE Drug Contraindication: N/A - Med Ordered
[2025-03-26 11:25] LABS: Glucose, Whole Blood 358 mg/dL (60-115)
--- NOTE | 2025-03-26 11:47 | PC.NURSE ---
ALISON Braden made aware pts POC blood sugar is 358 at 11:30, per PA pt does not need coverage, pt BS elevated due to steroids and not diabetes , pt A1C resulted as 6.5 this AM. Per PA no coverage needed at this time.
[2025-03-27 00:14] VITALS: PULSE 95; O2SAT 96
[2025-03-27 02:03] LABS: Glucose, Whole Blood 104 mg/dL (60-115)
[2025-03-27 03:05] VITALS: BP 154/85; PULSE 80; RESP 20; TEMP 36.3; O2SAT 94
[2025-03-27] MEDS: Albuterol Sulfate (0.083%) 2.5 MG/3 ML VIAL.NEB INHALE (07:44)
[2025-03-27 07:46] VITALS: PULSE 80; RESP 19; O2SAT 94
[2025-03-27 07:47] VITALS: BP 143/88; PULSE 69; RESP 16; TEMP 36.4; O2SAT 95
[2025-03-27] MEDS: Furosemide 40 MG/4 ML VIAL IVPUSH (08:16)
[2025-03-27] MEDS: Theophylline Anhydrous ER 400 MG TAB.ER.24H PO (08:16)
[2025-03-27] MEDS: 0.9 % Sodium Chloride Flush 3 ML SYRINGE IVFLUSH (08:17)
--- NOTE | 2025-03-27 09:31 | MHC.CM.PN ---
Patient medically cleared for dc home self care via private transport.
== END 2025-03-27 10:05 | disposition home or self-care (01) | DRG 190 ==
LOC: HO.ED 12:41 → HO.EDOVER 14:06 → HO.S3 16:19
PROVIDERS: Admitting Provider Nurse Practitioner Acute Care; Emergency Provider Emergency Medicine; PCP Internal Medicine Medical Oncology; Visit Provider Nurse Practitioner Acute Care
DX: J44.1 Chronic obstructive pulmonary disease with (acute) exacerbation (principal); J96.21 Acute and chronic respiratory failure with hypoxia; J96.22 Acute and chronic respiratory failure with hypercapnia; Z68.42 Body mass index [BMI] 45.0-49.9, adult; E87.5 Hyperkalemia; G47.33 Obstructive sleep apnea (adult) (pediatric); E11.9 Type 2 diabetes mellitus without complications; E66.01 Morbid (severe) obesity due to excess calories; Z71.3 Dietary counseling and surveillance; Z20.822 Contact with and (suspected) exposure to COVID-19; Z87.891 Personal history of nicotine dependence; Z79.899 Other long term (current) drug therapy
CPT/HCPCS: 36415; 71045; 71275; 80048; 80053; 82803; 82947; 83036; 83605; 83880; 84132; 85025; 85379; 87040; 87633; 93005; 93970; 94640; 94660; 99285; J0456; J0696; J1644; J1938; J2919; J3475; J7120; Q9967

== ENCOUNTER → 2025-03-23 08:30 | Outpatient (BNV) | payer OTHER, SELFPAY | PROVIDERS: Admitting Provider Nurse Practitioner Acute Care; Emergency Provider Emergency Medicine; PCP Internal Medicine Medical Oncology; Visit Provider Internal Medicine | DX: I25.2 Old myocardial infarction (principal); R00.0 Tachycardia, unspecified | CPT/HCPCS: 93010 ==

== ENCOUNTER → 2025-03-23 13:59 | Outpatient (BNV) | payer OTHER, SELFPAY | PROVIDERS: Admitting Provider Nurse Practitioner Acute Care; Emergency Provider Emergency Medicine; PCP Internal Medicine Medical Oncology; Visit Provider Nurse Practitioner Acute Care | DX: J44.9 Chronic obstructive pulmonary disease, unspecified (principal) | CPT/HCPCS: 99223; 99232; 99239 ==

== ENCOUNTER 2025-04-23 07:32 | Observation (INO) | payer OTHER, SELFPAY ==
[2025-04-23] VITALS (13 sets, daily range): BP systolic 135–169; BP diastolic 73–124; PULSE 96–109; RESP 12–24; TEMP 36.6–37.2; O2SAT 93–99; BMI 44.5
--- NOTE | ~2025-04-23 | XR_ITS ---
EXAMINATION: XR CHEST CLINICAL INFORMATION: sob COMPARISON: March 23, 2025 TECHNIQUE: PA and lateral views. FINDINGS: Prominence of the interstitial markings with patchy wedge-shaped opacities both lower hemithoraces likely related to the right middle lobe and lingula. No hyperinflation. No pleural effusion or pneumothorax. Cardiomediastinal silhouette size is normal with indistinct margins. Mild multilevel thoracolumbar spondylosis. Old healed rib fractures in the lateral aspect of the left lower hemithorax. XR/XR chest 2V IMPRESSION: Subsegmental atelectasis with likely acute small airway inflammatory processes. Electronically signed by: Ted Sullivan MD 04/23/2025 08:34 AM EDT
--- NOTE | 2025-04-23 07:51 | ECG_ITS ---
Test Reason : sob Blood Pressure : */* mmHG Vent. Rate : 112 BPM Atrial Rate : 112 BPM P-R Int : 132 ms QRS Dur : 84 ms QT Int : 348 ms P-R-T Axes : 54 49 48 degrees QTcB Int : 475 ms Sinus tachycardia Possible Inferior infarct (cited on or before 01-Mar-2025) Abnormal ECG When compared with ECG of 23-Mar-2025 08:36, No significant change was found Referred By: Generic ED Physician Electronically Signed By: RANJAN WANG
[2025-04-23] MEDS: Albuterol Sulfate 2.5 MG, Albuterol/Iprat 2.5/0.5MG 3 ML 3 ML INHALE (08:05)
--- NOTE | 2025-04-23 08:43 | ED_ITS ---
HPI - SOB/Dyspnea General Chief Complaint: Dyspnea Stated Complaint: SOB Time Seen by Provider: 04/23/25 08:14 Source: patient Mode of arrival: ambulatory Limitations: no limitations History of Present Illness ED Provider: DR. Mendenhall HPI Narrative: 59-year-old male with pertinent history of hypercarbic respiratory failure, morbid obesity, former smoker presented to the ED for severe respiratory distress and difficulty breath. +Fever chills last night, no lower extremity swelling Or edema. +cough with yellow sputum. Related Data Home Medications ?Medication ?Instructions ?Recorded ?Confirmed acetaminophen 500 mg tablet 1,000 mg PO DAILY PRN Pain 12/09/23 03/23/25 albuterol sulfate 90 mcg/actuation 2 inh inhalation Q4 H PRN shortness 12/09/23 03/23/25 aerosol inhaler of breath or wheezing polyethylene glycol 3350 17 17 g PO BEDTIME 12/09/23 0 03/23/25 gram/dose oral powder (Miralax) calcium carbonate 550 mg-magnesium 3 - 4 tab PO Q2H CA N Heartburn 11/21/24 03/23/25 hydroxide 110 mg chewable tablet theophylline 400 mg 400 mg PO DAILY@0800 5 03/23/25 tablet,extended release 24 hr Previous Rx's ?Medication ?Instructions ?Recorded CPAP (CPAP Machine/Device) #1 ea 01/24/24 furosemide 40 mg tablet 40 mg PO DAILY #90 tabs 06/25 umeclidinium 62.5 mcg-vilanterol 1 ea PO DAILY #60 ea 01/07/25 25 mcg/actuation powdr for inhalation (Anoro Ellipta) ipratropium 0.5 mg-albuterol 3 mg 3 ml inhalation Q4-6 H PRN wheezing 02/25/25 (2.5 mg base)/3 mL nebulization #180 mL soln azithromycin 500 mg tablet 500 mg PO DAILY 3 days #3 t abs 03/26/25 prednisone 10 mg tablet See Taper PO DIRECTED #30 tabs 03/26/25 ipratropium 20 mcg-albuterol 100 1 puff inhalation Q6H #1 ea 04/09/25 mcg/actuation mist for inhalation (Combivent Respimat) Allergies Allergy/AdvReac Type Severity Reaction Status Date / Time No Known Allergies Allergy Unknown Verified 04/23/25 07:48 Review of Systems 2 Review of Systems: All other systems are reviewed and are negative Constitutional: Reports as per HPI and Reports no additional constitutional complaints Eyes: Reports as per HPI and Reports no additional eye complaints Reports system reviewed and no additional complaints, except as documented Cardiovascular: Reports as per HPI and Reports no additional cardiovascular complaints Respiratory: Reports as per HPI and Reports no additional respiratory complaints Gastrointestinal: Reports as per HPI and Reports no additional gastrointestinal complaints Genitourinary: Reports no additional female genitourinary complaints Musculoskeletal: Reports no additional musculoskeletal complaints Skin/Breast: Reports system reviewed and no additional complaints, except as docu Psychiatric: Reports no additional psychiatric complaints Endocrine: Reports no additional endocrine complaints Hematologic/Lymphatic: Reports no additional hematologic/lymphatic complaints Allergic/Immunologic: Reports no additional allergic/immunologic complaints Reports system reviewed and no additional complaints, except as documented and Reports Abnormal speech present FOR[facility]LY [facility], [facility] Past Medical History Medical History Morbid obesity Diabetes mellitus KIRILL (obstructive sleep apnea) Smoker COPD (chronic obstructive pulmonary disease) HTN (hypertension) Acid reflux Diverticulitis Surgical History Hx of colonoscopy History of colostomy reversal H/O colostomy Family History Family History Mother Diabetes Arthritis Sleep apnea COPD (chronic obstructive pulmonary disease) Father Stomach cancer Diabetes Arthritis Sister Arthritis Social History Social History Household Members: Spouse Household Members Other:: and kid Housing: Apartment Housing Other:: 4th floor Do you presently have visiting nurse or other home services: No Alcohol intake: former Comment: at bedside Patient Tobacco Use Status: Former Tobacco user Tobacco use type: Cigarette Cigarette Packs Per Day: 1 Cigarettes Per Day: 13 Years Smoked: 60 Smoked in Last 30 Days: No e-Cigarette/Vaping Use: Never Used Second Hand Smoke Exposure: No Advance Directives: Yes Advance Directives on File: Yes Advance Directives Date on File: 01/17/24 service: No Current occupational status: employed 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 Physical Exam 2 Vital Signs: Vital Signs: Last Vital Signs Temp 99 F 04/23/25 10:00 Pulse 104 H 04/23/25 10:00 Resp 20 04/23/25 10:00 BP 139/88 04/23/25 10:00 Pulse Ox 98 04/23/25 10:00 O2 Del Method Room Air 04/23/25 10:00 O2 Flow Rate 2 04/23/25 08:25 BMI result Body Mass Index 44.5 Vital signs have been reviewed and appear to be correct. Blood pressure elevated. Heart rate normal. Respiratory rate normal. Temperature normal. Oxygen saturation normal. Appearance: Alert. Oriented X3. No acute distress. Head: Normal external exam. Normocephalic. Atraumatic. No Green signs noted. No raccoon eyes noted Eyes: PERRLA. EOMI. Conjunctiva and sclera normal. Eyelids normal. ENT: TM's Normal. Pharynx normal. Uvula midline. Moist mucous membranes. No trismus noted. No drooling noted. No muffled voice noted. Neck: Normal inspection. Neck supple. FROM. No adenopathy. Thyroid Normal. No meningeal signs. No neck mass noted. CVS: Normal heart rate and rhythm. Heart sound normal. No murmurs noted. Pulses normal throughout. Respiratory: Painless inspiration. Breath sounds normal. Diffuse expiratory wheezing with prolonged expiration, mild respiratory distress. No accessory muscle usage noted or decreased air movement noted. Abdomen: Soft and nontender. Bowel sounds normal in all 4 quadrants. No distention noted. No organomegaly noted. No visible injury noted. Back: No CVA tenderness. Full range of motion noted. Skin: Skin warm and dry. Normal skin color. Normal skin turgor. No rashes/lesions/lacerations noted. Extremities: No lower extremity edema. Extremities exhibit normal range of motion. Extremities nontender. Neuro: Oriented X 3. Cranial nerve exam: II-XII are grossly intact No motor deficit. No sensory deficit. Reflexes normal. Course Reevaluation(s) Reevaluation #1: Acute COPD exacerbation. Received Solu-Medrol, bronchodilator, magnesium, 1 dose of ceftriaxone, patient shows improvement in the emergency department. Time: 10:56 Medications Administered Discontinued Medications Generic Name Dose Route Start Last Admin Trade Name Freq PRN Reason Stop Dose Admin Ceftriaxone Sodium 1 gm 04/23/25 08:22 04/23/25 09:18 Ceftriaxone Sodium 1 Gm Vial IVPUSH 04/23/25 08:23 1 gm ONCE ONE Administration Albuterol Sulfate 2.5 mg/ 0 mg 04/23/25 08:02 04/23/25 08:05 Albuterol/Ipratropium 3 ml INHALE 04/23/25 08:03 1 dose ONCE ONE Administration Magnesium Sulfate 2 gm in 50 mls @ 150 mls/hr 04/23/25 08:23 04/23/25 09:15 Magnesium Sulfate/H2o IV 04/23/25 08:42 Infused ONCE ONE Infusion Methylprednisolone Sodium Succinate 125 mg 04/23/25 08:23 04/23/25 08:47 Methylprednisolone Sod Succ 125 Mg/2 Ml Vial IVPUSH 04/23/25 08:24 125 mg ONCE ONE Administration Medical Decision Making Differential Diagnosis Differential Diagnoses: The differential diagnosis associated with the presentation includes ( pneumonia, pneumothorax, pleural effusion, CHF, COPD exacerbation, electrolyte electrolyte derangement, severe anemia.) Admission/Observation Consideration of admission/observation: Escalation of care including admission/observation considered Consult Healthcare Provider Management of the patient was discussed with: Hospitalist ( Karine Braden) Lab Data MDM Lab Attestation statement: I reviewed the patient's lab results. 04/23/25 08:43 04/23/25 08:43 Labs: Lab Results 04/23/25 04/23/25 Range/Units 08:43 08:43 WBC 9.9 (4.8-10.8) X10*3/uL RBC 4.94 (4.60-5.80) X10*6/uL Hgb 14.2 (14.0-18.0) g/dl Hct 43.7 (42.0-52.0) % MCV 88.5 (80.0-98.0) fL MCH 28.7 (27.0-33.0) pg MCHC 32.5 (31.0-36.0) g/dl RDW 15.9 (11.0-16.0) % Plt Count 330 (160-400) X10*3/uL MPV 9.1 L (9.4-12.4) fL Immature Gran % (Auto) 0.5 H (0.0-0.4) % Neut % (Auto) 64.4 (45-73) % Lymph % (Auto) 23.0 (20-40) % [place] % (Auto) 7.9 (2-11) % Eos % (Auto) 3.7 (0-4) % Baso % (Auto) 0.5 (0-2) % Lymph # (Auto) 2.3 (1.2-4.9) X10*3/uL [place] # (Auto) 0.8 (0.1-1.2) X10*3/uL Eos # (Auto) 0.4 (0.0-0.4) X10*3/uL Baso # (Auto) 0.1 (0.0-0.2) X10*3/uL Abs Immat Gran (auto) 0.05 H (0.00-0.03) X10*3/uL Absolute Neuts (auto) 6.4 (2.0-8.3) x10*3/uL Absolute Nucleated RBC 0.000 (0.0-0.012) X10*3/uL Nucleated RBC % (auto) 0.0 (0.0-0.2) /100WBC Sodium 142 (135-145) mmol/L Potassium 3.8 (3.3-5.1) mmol/L Chloride 105 (96-108) mmol/L Carbon Dioxide 31 H (22-29) mmol/L Anion Gap 10 L (12-20) BUN 10 (9-16) mg/dL Creatinine 0.95 (0.5-1.4) mg/dL Estim Creat Clear Calc 114.3 Estimated GFR > 60 Random Glucose 89 (60-115) mg/dL Lactic Acid 1.3 (0.5-2.0) mmol/L Calcium 9.3 (8.4-10.2) mg/dL Magnesium 2.0 (1.6-2.6) mg/dL Total Bilirubin 0.2 (0.0-1.0) mg/dL AST 20 (5-37) U/L ALT 18 (0-40) U/L Alkaline Phosphatase 99 (39-117) U/L Troponin I High Sens 4.4 D (<3.5-35.0) ng/L NT-Pro-B Natriuret Pep 22.6 Cancelled (<300) pg/mL Total Protein 7.3 (6.5-8.0) g/dL Albumin 4.0 (3.5-5.0) g/dL COVID-19 (YUMIKO) Negative (Negative) COVID-19 Clin Com See Note Influenza Type A (SHEN) Negative (Negative) Influenza Type B (SHEN) Negative (Negative) Influenza A & B Note See Note S. pyogenes GrpA SHEN Negative (Negative) Independent Interpretation I performed an independent interpretation of an: Plain X-Ray ( chest:Subsegmental atelectasis with likely acute small airway inflammatory processes. ) Radiology Impression Discussion of test interpretation with radiology: I have reviewed the radiologist's reading. Critical Care Time Critical Care Time Critical Care Time: Yes Total Critical Care Time: 60 Attestation: The patient was critically ill with a high probability of imminent or life- threatening deterioration. I spent greater than 30 minutes of discontinuous time evaluating the patient, delivering critical care at the bedside, discussing evaluating data with consultants. Critical care time does not include time spent performing separately billable procedures or teaching. Time spent performing critical care was 60 minutes. Discharge Plan Discharge Clinical Impression: COPD with acute exacerbation Patient Disposition: Admitted As Inpatient Print Language: Finnish
[2025-04-23] MEDS: Magnesium Sulfate/H2O 2 GM/50 ML PIGGYBACK IV (08:48)
[2025-04-23 08:49] LABS: MANUAL DIFF FLAG NO
[2025-04-23 08:53] LABS: Hematocrit 43.7 % (42.0-52.0); Hemoglobin 14.2 g/dl (14.0-18.0); Imm Gran Abs Auto 0.05 X10*3/uL (0.00-0.03); Imm Gran Pct Auto 0.5 % (0.0-0.4); Lymphocytes Absolute Auto 2.3 X10*3/uL (1.2-4.9); Mean Corpuscular HGB Conc 32.5 g/dl (31.0-36.0); Mean Corpuscular Hemoglobin 28.7 pg (27.0-33.0); Mean Corpuscular Volume 88.5 fL (80.0-98.0); NRBC Abs Auto 0.000 X10*3/uL (0.0-0.012); NRBC Pct Auto 0.0 /100WBC (0.0-0.2); Platelet Count 330 X10*3/uL (160-400); Red Blood Count 4.94 X10*6/uL (4.60-5.80); White Blood Count 9.9 X10*3/uL (4.8-10.8)
[2025-04-23 09:02] LABS: IDNOW Serial# 152EDE1D; Strep A Nucleic Acid Negative (Negative)
[2025-04-23 09:04] LABS: Alanine Aminotransferase 18 U/L (0-40); Albumin Level 4.0 g/dL (3.5-5.0); Alkaline Phosphatase 99 U/L (39-117); Anion Gap 10 (12-20); Aspartate Amino Transferase 20 U/L (5-37); Blood Urea Nitrogen 10 mg/dL (9-16); Calcium 9.3 mg/dL (8.4-10.2); Carbon Dioxide 31 mmol/L (22-29); Chloride 105 mmol/L (96-108); Creatinine Clr Calc Pharmacy 114.3; Estimated Glomerular Filt Rate > 60; Magnesium 2.0 mg/dL (1.6-2.6); Potassium 3.8 mmol/L (3.3-5.1); Sodium 142 mmol/L (135-145); Total Protein 7.3 g/dL (6.5-8.0)
[2025-04-23 09:09] LABS: COVID-19 Test Negative (Negative); IDNOW Serial# 08D9AD1C; IDNOW Serial# 6674DD1D; Influenza B2 Negative (Negative)
[2025-04-23 09:11] LABS: NT Pro B Type Natriuretic Pept 22.6 pg/mL (<300); Troponin-I High Sensitivity 4.4 ng/L (<3.5-35.0)
--- NOTE | 2025-04-23 09:28 | PC.NURSE ---
Pt roomed and placed on full monitor Pt with 2LPM N/C. Afebrile. HR 103-109 SR. other VSS. Pt resting with eyes closed at this time and appears less dyspneic.
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
[2025-04-23] MEDS: Albuterol Sulfate (0.083%) 2.5 MG/3 ML VIAL.NEB INHALE ×3 (11:31→20:01)
--- NOTE | 2025-04-23 13:32 | PHA.MEDREC ---
Addendum entered by Antonia Kellogg [facility] 04/23/25 14:59: MED REC REVIEWED BY [facility] Addendum entered by Keyla Owen 04/23/25 14:48: Found Tadalifil 20mg tabs once daily in claims from 04/09, pt confirmed he is still taking that medication once daily. Original Note: Pharmacy Consult ? Medication Reconciliation Pharmacy has completed the medication reconciliation. Spoke with pt and pt mariann at bedside and they confirmed the pt medications. Pt confirmed; he is no longer taking Cyclobenzaprine; it slowed pt breathing too much for pt liking, Hydrochlorothiazide; pt hasnot taken in over a month according to pt and mariann, he finished the Prednisone 20mg tabs yesterday and he takes Wegovy 0.5mg once a week on Wednesdays and states he is due for it tomorrow (04/24).
[2025-04-23 13:52] LABS: Appearance Urine Clear; Glucose Urine UA Negative (Negative); PH 5.5 (5.0-9.0); Specific Gravity - Urine 1.020 (1.005-1.025)
[2025-04-23] MEDS: 0.9 % Sodium Chloride Flush 3 ML SYRINGE IVFLUSH ×2 (17:19→21:21)
[2025-04-24] VITALS (9 sets, daily range): BP systolic 136–146; BP diastolic 73–91; PULSE 78–104; RESP 18–22; TEMP 36.3–36.8; O2SAT 93–98
[2025-04-24] MEDS: Albuterol/Iprat 2.5/0.5MG 3 ML AMPUL.NEB INHALE ×4 (05:24→23:49)
[2025-04-24 06:29] LABS: Hematocrit 44.7 % (42.0-52.0); Hemoglobin 13.9 g/dl (14.0-18.0); Mean Corpuscular HGB Conc 31.1 g/dl (31.0-36.0); Mean Corpuscular Hemoglobin 28.1 pg (27.0-33.0); Mean Corpuscular Volume 90.3 fL (80.0-98.0); NRBC Abs Auto 0.000 X10*3/uL (0.0-0.012); NRBC Pct Auto 0.0 /100WBC (0.0-0.2); Platelet Count 353 X10*3/uL (160-400); Red Blood Count 4.95 X10*6/uL (4.60-5.80); White Blood Count 12.6 X10*3/uL (4.8-10.8)
[2025-04-24 06:42] LABS: Anion Gap 13 (12-20); Blood Urea Nitrogen 17 mg/dL (9-16); Calcium 9.4 mg/dL (8.4-10.2); Carbon Dioxide 30 mmol/L (22-29); Chloride 101 mmol/L (96-108); Creatinine Clr Calc Pharmacy 123.4; Estimated Glomerular Filt Rate > 60; Magnesium 2.6 mg/dL (1.6-2.6); Potassium 4.9 mmol/L (3.3-5.1); Sodium 139 mmol/L (135-145)
[2025-04-24] MEDS: Theophylline Anhydrous ER 400 MG TAB.ER.24H PO (08:02)
[2025-04-24] MEDS: 0.9 % Sodium Chloride Flush 3 ML SYRINGE IVFLUSH ×3 (08:03→20:41)
[2025-04-24] MEDS: guaiFEN/Codeine SF 200/20/10ML 10 ML LIQUID PO (08:33)
--- NOTE | 2025-04-24 09:22 | MHC.CM.PN ---
Audrey 04/24/25 DX Pyelonephritis Lives with and other family members Pt is independent with all functional mobility [facility] O2 2L + BIPAP 4L @ NOC PCP Dr Leonard [place] HCP on file DP home selfcare via family transport.
[2025-04-24 12:45] LABS: Chlamydia pneumoniae PCR Not Detected (Not Detect.); Coronavirus 229E PCR Not Detected (Not Detect.); Coronavirus HKU1 PCR Not Detected (Not Detect.); Coronavirus NL63 PCR Not Detected (Not Detect.); Coronavirus OC43 PCR Not Detected (Not Detect.); RSV PCR Not Detected (Not Detect.); Rhino/Enterovirus PCR Detected (Not Detect.); SARS-CoV-2 PCR Not Detected (Not Detect.)
[2025-04-24 12:47] LABS: Influenza A H1 PCR Not Detected (Not Detect.); Influenza A H1-2009 PCR Not Detected (Not Detect.); Influenza A H3 PCR Not Detected (Not Detect.)
--- NOTE | 2025-04-24 17:12 | P.PNIM_ITS ---
Subjective Subjective Date of Service: 04/24/25 Interval History: COPD exacerbation Review of Systems Shortness of breaths seems similar, aggressive cough, feels short of breath with minimal exertion, difficulty even walking few steps without short of breath. Physical Exam 2 Exam: Exam: Appearance: Alert.? Oriented X3.sob cvs: rrr, [id number] , no murmur res: Air entry diminished, bilateral wheezing, mild use of accessory muscles. abd: no rebound or guarding ,nt, bs present. ext pulses present , no cyanosis neuro: axo3 , nonfocal. Vital Signs: Vital Signs: Last Vital Signs Temp 98.2 F 04/24/25 16:00 Pulse 99 04/24/25 16:00 Resp 20 04/24/25 16:00 BP 136/91 H 04/24/25 16:00 Pulse Ox 95 04/24/25 16:00 O2 Del Method Room Air 04/24/25 16:00 O2 Flow Rate 2.0 04/24/25 07:50 BMI result Body Mass Index 44.5 Objective Data Active Medications Acetaminophen (Acetaminophen 325 Mg Tablet) 650 mg PO Q6H PRN PRN Reason: Pain, Mild 1-3,fever,headache Albuterol Sulfate (Albuterol Sulfate 90 Mcg 8 Gm Inhaler) 2 puff INHALE Q4H PRN PRN Reason: shortness of breath or wheezing Albuterol/Ipratropium (Albuterol/Iprat 2.5/0.5mg 3 Ml Ampul.Neb) 3 ml INHALE RQ6H [facility] Benzonatate (Benzonatate 100 Mg Capsule) 100 mg PO TID PRN PRN Reason: Cough Calcium Carbonate (Calcium Carbonate 750 Mg Tab.Chew) 750 mg PO Q4H PRN PRN Reason: Heartburn Enoxaparin Sodium (Enoxaparin Sodium 40 Mg/0.4 Ml Syringe) 40 mg SUBCUT Q24H [facility] Last Admin: 04/24/25 12:46 Dose: 40 mg Documented By: MICHELE Furosemide (Furosemide 40 Mg Tablet) 40 mg PO DAILY [facility]; Protocol Last Admin: 04/24/25 08:02 Dose: 40 mg Documented By: MICHELE Guaifenesin/Codeine Phosphate (Guaifen/Codeine Sf 200/20/10ml 10 Ml Liquid) 10 ml PO Q4H PRN PRN Reason: Cough Last Admin: 04/24/25 08:33 Dose: 10 ml Documented By: MICHELE Magnesium Hydroxide (Milk Of Magnesia 30 Ml Oral.Susp) 30 ml PO DAILY PRN PRN Reason: Constipation Melatonin (Melatonin 3 Mg Tablet) 6 mg PO BEDTIME PRN PRN Reason: Insomnia Methylprednisolone Sodium Succinate (Methylprednisolone Sod Succ 40 Mg/Ml Vial) 40 mg IVPUSH Q12H [facility] Last Admin: 04/24/25 08:01 Dose: 40 mg Documented By: MICHELE Naproxen (Naproxen 500 Mg Tablet) 500 mg PO BID [facility] Last Admin: 04/24/25 08:02 Dose: 500 mg Documented By: MICHELE Ondansetron HCl (Ondansetron Hcl 4 Mg/2 Ml Vial) 4 mg IVPUSH Q8H PRN PRN Reason: Nausea and Vomiting Polyethylene Glycol (Polyethylene Glycol 3350 17 Gm Powd.Pack) 17 gm PO BEDTIME [facility] Last Admin: 04/23/25 21:20 Dose: 17 gm Documented By: LEFEBALBINO Sodium Chloride (0.9 % Sodium Chloride Flush 3 Ml Syringe) 3 ml IVFLUSH QSHIFT [facility] Last Admin: 04/24/25 08:03 Dose: 3 ml Documented By: MICHELE Theophylline (Theophylline Anhydrous Er 400 Mg Tab.Er.24h) 400 mg PO DAILY@0800 [facility] Last Admin: 04/24/25 08:02 Dose: 400 mg Documented By: MICHELE Labs 04/24/25 05:56 04/24/25 05:56 Labs: Laboratory Results - last 24 hr 04/24/25 04/24/25 05:56 10:44 MCV 90.3 MCH 28.1 MCHC 31.1 RDW 15.8 Plt Count 353 MPV 9.7 Absolute Nucleated RBC 0.000 Nucleated RBC % (auto) 0.0 Anion Gap 13 Estim Creat Clear Calc 123.4 Estimated GFR > 60 Random Glucose 128 H Calcium 9.4 Magnesium 2.6 Respiratory Panel Islas See Note Adenovirus (Rapid PCR) Not Detected B.pert (TEM-PCR) Not Detected B.parapertussis DNA PCR Not Detected C. pneumoniae DNA (PCR) Not Detected Coronavirus OC43 (PCR) Not Detected Coronavirus HKU1 (PCR) Not Detected Coronavirus 229E (PCR) Not Detected Coronavirus NL63 (PCR) Not Detected Human Metapneumovir PCR Not Detected Influenza A (RT-PCR) Not Detected Influenza A (H1) PCR Not Detected Influ A (H1/09) PCR Not Detected Influenza A (H3) PCR Not Detected Influenza B (RT-PCR) Not Detected M. pneumoniae (PCR) Not Detected Parainfluenza 1 (PCR) Not Detected Parainfluenza 2 (PCR) Not Detected Parainfluenza 3 (PCR) Not Detected Parainfluenza 4 (PCR) Not Detected RSV (PCR) Not Detected Entero/Rhino (PCR) Detected A SARS-CoV-2 RNA (RT-PCR) Not Detected Microbiology Microbiology Results: Microbiology 04/23/25 09:18 Blood Culture - Preliminary Blood - Venous No growth after 24 hours. 04/23/25 09:18 Blood Culture - Preliminary Blood - Venous No growth after 24 hours. Assessment and Plan (1) COPD with acute exacerbation: Status: Acute Plan 59 year old man admitted with acute on chronic COPD exacerbation COPD exacerbation Dyspnea with minimal exertion, significant wheezing, talking in small sentences, respiratory status did not improve much IV Solu-Medrol Scheduled DuoNebs Added extra nebs, magnesium Supplemental oxygen as needed to keep oxygen saturation greater than 90% Pulmonary consultation for recurrent admission Diabetes mellitus type 2 SS, ada diet Obstructive sleep apnea CPAP at bedtime Smoker Discussed importance of smoking cessation NRT offered Hypertension stable BP continue lasix Morbid obesity. BMI 44.6 Discussed importance of weight management as this may be contributing to worsening of other comorbidities DVT prophylaxis with Lovenox ongoing need for stay:COPD exacerbation -still significant short of breath with minimal exertion, risk of readmission and worsening of symptoms high, we will continue monitoring of respiratory status as well as IV steroids extends nebs, also needed extra nebs and magnesium. Quality Stroke Does the patient have a stroke diagnosis?: No VTE Prior VTE?: No VTE Risk Level:: Medical - moderate - high VTE Device Contraindication: Treatment Not Indicated VTE Drug Contraindication: N/A - Med Ordered
[2025-04-24] MEDS: Magnesium Sulfate/H2O 2 GM/50 ML PIGGYBACK IV (17:40)
[2025-04-25] VITALS (7 sets, daily range): BP systolic 146–179; BP diastolic 90–113; PULSE 66–104; RESP 16–21; TEMP 36.8; O2SAT 91–93
[2025-04-25] MEDS: guaiFEN/Codeine SF 200/20/10ML 10 ML LIQUID PO ×3 (04:42→15:07)
[2025-04-25] MEDS: Albuterol/Iprat 2.5/0.5MG 3 ML AMPUL.NEB INHALE ×2 (05:54→11:37)
[2025-04-25] MEDS: 0.9 % Sodium Chloride Flush 3 ML SYRINGE IVFLUSH (09:28)
[2025-04-25] MEDS: Theophylline Anhydrous ER 400 MG TAB.ER.24H PO (09:28)
--- NOTE | 2025-04-25 11:06 | P.DS_ITS ---
DS: Providers Provider Date of Service: 04/25/25 Date of admission: 04/23/25 11:09 Date of discharge: 04/25/25 Primary care physician: Leonard Boston MD Attending physician on discharge: Nissa Enriquez Discharging clinician: Nissa Enriquez DS: Diagnosis Discharge Diagnosis (1) COPD with acute exacerbation: Status: Acute DS: Summary Hospital Course Hospital Course: HPI:59 year old man presenting with increased shortness of breath and wheezing, no hypoxia noted. He reported that on Tuesday he went to a barbecue at work and someone was blowing leaves and when he opened the door although leaves and does gotten into his face. He reported since then he has had cough, wheezing and shortness of breath. He normally wears oxygen but only wears it at home and does not wear it at work. Noted he had been using his inhalers with no relief. He decided to come to the ER to be further evaluated. In the ED, CXR with small airway process. Lab within acceptable limits. He was given albuterol, Rocephin, Solumedrol, IV magnesium, he will be admitted for management of COPD exacerbation. Hospital course: 59 year old man admitted with acute on chronic COPD exacerbation COPD exacerbation in the setting of viral URI(Rhino/enterovirus): cxr -mild atelactasis vs mild bonchiltis . Patient was started on nebs, steroids, oxygen tapered, currently on baseline oxygen, sats are maintaining above 90. Ambulating fine and still maintaining sats above 90s. Patient seems to be improved significantly with the above management going home with p.o. steroids. Patient also has mild cough with sputum: Possible component of mild acute bronchitis, added azithromycin. Seen by PT-home with no services. Strongly advised to abstain from smoking Hypertension suboptimal: stable BP , added amlodipine continue lasix Morbid obesity. BMI 44.6 ,Discussed importance of weight management as this may be contributing to worsening of other comorbidities. plan: Continue prednisone 40 mg q.day for 4 days. Azithromycin 250 mg for 4 more days. Amlodipine 2.5 mg q.day , monitor blood pressure closely, follow up with PCP outpatient. In addition advised and encouraged to stop smoking, also encouraged to lose cristal ght. Above management discussed with the patient in detail length he understand and in agreement with the above plan, time spent 45 minute. All questions answered. Time Attestation Total time managing care of this patient today: 45 mintues. Discharge Coordination Time (in mins): 45 min Quality: Safe Use of Opioids Does Pt have an Active Cancer Diagnosis on the Problem List?: No Quality: Stroke Does the patient have a stroke diagnosis?: No Physical Exam Exam: Exam: Appearance: Alert.? Oriented X3. cvs: rrr, [id number] , no murmur res: Air entry fair, no rales or wheezing abd: no rebound or guarding ,nt, bs present. ext pulses present , no cyanosis neuro: axo3 , nonfocal. Vital Signs: Vital Signs: Last Vital Signs Temp 98.3 F 04/25/25 07:49 Pulse 66 04/25/25 07:49 Resp 16 04/25/25 07:49 BP 169/96 H 04/25/25 07:49 Pulse Ox 91 L 04/25/25 07:49 O2 Del Method Nasal Cannula 04/25/25 07:49 O2 Flow Rate 2 04/25/25 07:49 BMI result Body Mass Index 44.5 DS: Data Data Completed and Pending Completed studies during hospitalization [Text1]: Procedures Assistance with Respiratory Ventilation, Less than 24 Consecutive Hours, Continuous Positive Airway Pressure (11/21/24) Labs on day of discharge: Laboratory Results - last 24 hr 04/24/25 10:44 Respiratory Panel Islas See Note Adenovirus (Rapid PCR) Not Detected B.pert (TEM-PCR) Not Detected B.parapertussis DNA PCR Not Detected C. pneumoniae DNA (PCR) Not Detected Coronavirus OC43 (PCR) Not Detected Coronavirus HKU1 (PCR) Not Detected Coronavirus 229E (PCR) Not Detected Coronavirus NL63 (PCR) Not Detected Human Metapneumovir PCR Not Detected Influenza A (RT-PCR) Not Detected Influenza A (H1) PCR Not Detected Influ A (H1/09) PCR Not Detected Influenza A (H3) PCR Not Detected Influenza B (RT-PCR) Not Detected M. pneumoniae (PCR) Not Detected Parainfluenza 1 (PCR) Not Detected Parainfluenza 2 (PCR) Not Detected Parainfluenza 3 (PCR) Not Detected Parainfluenza 4 (PCR) Not Detected RSV (PCR) Not Detected Entero/Rhino (PCR) Detected A SARS-CoV-2 RNA (RT-PCR) Not Detected Preliminary micro results at discharge 04/23/25 09:18 Blood Culture - Preliminary Blood - Venous No growth after 24 hours. 04/23/25 09:18 Blood Culture - Preliminary Blood - Venous No growth after 24 hours. Imaging Chest x-ray: Radiologist's impression: ITS Impressions Chest X-Ray 04/23/25 08:20 IMPRESSION: Subsegmental atelectasis with likely acute small airway inflammatory processes. Discharge Plan Discharge Anticipated Discharge Date/Time: 04/25/25 10:55 Patient Disposition: Home, Self-Care Discharge Diagnosis: copd excerebation Referrals: Leonard Boston MD [Primary Care Provider, Internal Medicine] - 1 Week Discharge Medications: New codeine-guaifenesin 10-100 mg/5 mL Liquid 10 ml PO Q4H PRN (Reason: Cough) Qty: 120 0RF benzonatate 100 mg Capsule 100 mg PO TID PRN (Reason: Cough) Qty: 21 0RF prednisone 20 mg Tablet 40 mg PO DAILY Qty: 8 0RF omeprazole 20 mg capsule,delayed release(DR/EC) 20 mg PO DAILY Qty: 30 0RF azithromycin 250 mg Tablet 250 mg PO Q24H Qty: 4 0RF amlodipine 2.5 mg Tablet 2.5 mg PO DAILY Qty: 90 0RF Protocol: Hold for SBP< HOLD for SBP < : 90 Continued furosemide 40 mg tablet 40 mg PO DAILY Qty: 90 4RF umeclidinium-vilanterol [Anoro Ellipta] 62.5-25 mcg/actuation blister with device 1 ea PO DAILY Qty: 60 6RF Rx Instructions: by inhalation Combivent Respimat 20-100 mcg/actuation mist 1 puff inhalation Q6H Qty: 1 6RF (DME) CPAP Machine/Device Device See Rx Instructions .Route Qty: 1 0RF Rx Instructions: As directed. Auto cpap 5-20. with all supplies Length of need lifetime acetaminophen 500 mg Tablet 1,000 mg PO DAILY PRN (Reason: Pain) polyethylene glycol 3350 [Miralax] 17 gram/dose Powder 17 g PO BEDTIME albuterol sulfate 90 mcg/actuation HFA aerosol inhaler 2 inh inhalation Q4H PRN (Reason: shortness of breath or wheezing) calcium carbonate-mag hydroxid 550-110 mg Tablet,Chewable 3 - 4 tab PO Q2H PRN (Reason: Heartburn) theophylline 400 mg tablet extended release 24 hr 400 mg PO DAILY@0800 diclofenac sodium 1 % gel 2 g topical BID PRN (Reason: Pain) Wegovy 0.5 mg/0.5 mL pen injector 0.5 mg subcut WE tadalafil 20 mg tablet 20 mg PO DAILY Held naproxen 500 mg tablet 500 mg PO BID Hold Instructions: Resume on 04/30/25. Discharge Orders: Discharge Order (Routine); Ordered 04/25/25 Ordered By: Nissa Enriquez Diet: Advance to usual diet Activity on Discharge: As tolerated Stand Alone Forms: Patient Portal Discharge page, Work/School Release Print Language: [place] Care Plan Goals: copd exacerbation: Continue with nebs, steroids, antibiotics, oxygen-seems to be improved significantly. Patient will be going home with p.o. prednisone and cough medication, azithromycin . Health Concerns: Prednisone 40 mg daily for 4 days. Cough medication including Hycodan, benzonatate. Continue home oxygen. Complete azithromycin 250 mg p.o. q.d. for 4 more days. Plan of Treatment: As above. Assessment: As above. Discharge Date/Time: 04/25/25 15:16
--- NOTE | 2025-04-25 11:27 | MHC.CM.PN ---
PT TO DC HOME TODAY [facility] NO SERVICES VIA PRIVATE TRANSPORT
== END 2025-04-25 15:16 | disposition home or self-care (01) ==
LOC: HO.ED 10:55 → HO.EDOVER 11:12 → HO.S3 19:21
PROVIDERS: Admitting Provider Nurse Practitioner Acute Care; Emergency Provider Emergency Medicine; PCP Internal Medicine Medical Oncology; Visit Provider Internal Medicine
DX: J44.1 Chronic obstructive pulmonary disease with (acute) exacerbation (principal); R06.02 Shortness of breath; I10 Essential (primary) hypertension; E11.9 Type 2 diabetes mellitus without complications; E66.01 Morbid (severe) obesity due to excess calories; Z68.41 Body mass index [BMI] 40.0-44.9, adult; Z87.891 Personal history of nicotine dependence; Z79.899 Other long term (current) drug therapy; Z03.818 Encounter for observation for suspected exposure to other biological agents ruled out; G47.33 Obstructive sleep apnea (adult) (pediatric); Z99.89 Dependence on other enabling machines and devices
CPT/HCPCS: 36415; 71046; 80048; 80053; 81003; 83605; 83735; 83880; 84484; 85025; 85027; 87040; 87502; 87633; 87635; 87651; 93005; 94640; 94660; 96365; 96366; 96372; 96375; 96376; 97161; 99221; 99285; J0696; J1650; J2919; J3475

== ENCOUNTER → 2025-04-23 07:51 | Outpatient (BNV) | payer OTHER, SELFPAY | PROVIDERS: Emergency Provider Emergency Medicine; PCP Internal Medicine Medical Oncology; Visit Provider Radiology Diagnostic Radiology | DX: R06.02 Shortness of breath (principal) | CPT/HCPCS: 71046 ==

== ENCOUNTER → 2025-04-23 07:51 | Outpatient (BNV) | payer OTHER, SELFPAY | PROVIDERS: Admitting Provider Nurse Practitioner Acute Care; Emergency Provider Emergency Medicine; PCP Internal Medicine Medical Oncology; Visit Provider Internal Medicine | DX: R00.0 Tachycardia, unspecified (principal) | CPT/HCPCS: 93010 ==

== ENCOUNTER → 2025-04-23 11:09 | Outpatient (BNV) | payer OTHER, SELFPAY | PROVIDERS: Admitting Provider Nurse Practitioner Acute Care; Emergency Provider Emergency Medicine; PCP Internal Medicine Medical Oncology; Visit Provider Internal Medicine | DX: J44.1 Chronic obstructive pulmonary disease with (acute) exacerbation (principal) | CPT/HCPCS: 99223; 99231; 99239 ==

== ENCOUNTER 2025-04-29 14:36 | Outpatient (AMB) | payer OTHER, SELFPAY ==
--- NOTE | 2025-04-29 14:40 | MHC.OFFVIS ---
Vital Signs 04/29/25 14:41 Height 6 ft Weight 293 lb BMI 39.7 BP 122/72 Blood Pressure Location Rt brachial Position Sitting Pulse 102 H Pulse Source Pulse Oximeter Pulse Oximetry (%) 92 Oxygen Delivery Method Room Air Intake Visit Reasons: Obstructive sleep apnea Allergies No Known Allergies Allergy (Unknown, Verified 04/29/25 14:49) HPI HPI Obstructive sleep apnea: Details: 59-year-old gentleman recent 30+ pack-year smoker, quit 04/2023 now followed for pulmonary emphysema, KIRILL now on CPAP, and dyspnea on exertion. After the last office visit he was started on BiPAP , with significant improvement in his sleep symptoms. He is still having difficulties adjusting to using a BiPAP mask, however his AHI index has fallen 10 fold from 112 down to 12 events per hour with significant symptomatic benefit. Patient continues to use Anoro, duo nebs, Combivent, and albuterol MDI with reasonable control of his underlying COPD symptoms. Unfortunately, he had recent Falk's palsy and now has difficulty using his BiPAP. He recently required brief hospitalization [facility] for another exacerbation of his underlying COPD secondary to rhinovirus. [facility] Medical History (Updated 04/29/25 @ 15:04 by Dagoberto Choudhury MD) COPD (chronic obstructive pulmonary disease) Morbid obesity Diabetes mellitus KIRILL (obstructive sleep apnea) Smoker HTN (hypertension) Acid reflux Diverticulitis Surgical History Hx of colonoscopy History of colostomy reversal H/O colostomy Family History Mother Diabetes Arthritis Sleep apnea COPD (chronic obstructive pulmonary disease) Father Stomach cancer Diabetes Arthritis Sister Arthritis Social History Household Members: Spouse Household Members Other:: and kid Housing: Apartment Housing Other:: 4th floor Do you presently have visiting nurse or other home services: No Alcohol intake: former Comment: at bedside Patient Tobacco Use Status: Former Tobacco user Tobacco use type: Cigarette Cigarette Packs Per Day: 1 Cigarettes Per Day: 13 Years Smoked: 60 e-Cigarette/Vaping Use: Never Used Second Hand Smoke Exposure: No Advance Directives Date on File: 01/17/24 service: No Current occupational status: employed 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 Review of Systems Const Denies daytime sleepiness, Denies excessive sweating, Denies fatigue, Denies fever(s), Denies lethargy, Denies malaise, Denies night sweats, Denies snoring and Denies weight loss Eyes Denies blurry vision and Denies itchy eyes ENT Denies nasal congestion, Denies post nasal drip, Denies sinus pain, Denies sinus pressure and Denies other ( Thrush) Card Denies chest pain, Denies pedal edema, Denies dyspnea, Denies orthopnea and Denies paroxysmal nocturnal dyspnea Resp Denies cough, Denies hemoptysis, Denies excessive phlegm production, Denies dyspnea, Denies snoring and Denies wheezing GI Denies abdominal pain and Denies heartburn Musc Denies myalgias, Denies arthralgias and Denies joint swelling Skin/Breast Denies rash Neuro Denies memory loss and Denies seizure-like activity Psych Denies abnormal sleep pattern, Denies anxiety and Denies memory loss Endo Denies excessive sweating, Denies fatigue and Denies heat intolerance Liam/Lymph Denies easy bruising Aller/Immun Denies itchy eyes, Denies seasonal rhinorrhea and Denies wheezing Physical Exam Vital Signs: Last Vital Signs Pulse 102 H 04/29/25 14:41 BP 122/72 04/29/25 14:41 Pulse Ox 92 04/29/25 14:41 Oxygen Delivery Method Room Air 04/29/25 14:41 BMI result Body Mass Index 39.7 Const General: no acute distress and alert Nutritional Appearance: obese Orientation/consciousness: Other orientation findings ( oriented) HEENT Head: Yes atraumatic Eyes General: appearance normal, both eyes and all related structures Sclerae: sclerae normal EOM: EOMs intact bilaterally Neck Neck: Yes supple Lymphatic: no lymphadenopathy noted Resp Effort & Inspection: normal respiratory effort and no use of accessory muscles Auscultation: clear to auscultation bilaterally Cardio Rate: regular rate Rhythm: regular rhythm Heart sounds: no gallops, no murmurs and no rubs Skin General skin exam: other ( warm) Extrem General: No clubbing, No cyanosis and No edema Assessment & Plan Assessment & Plan (1) COPD (chronic obstructive pulmonary disease): Code(s): J44.9 - Chronic obstructive pulmonary disease, unspecified Category: Medical Plan: Reasonable baseline control on current regimen of Anoro, Combivent, and albuterol MDI. Will add as needed duo nebs. (2) Personal history of nicotine dependence: Code(s): Z87.891 - Personal history of nicotine dependence Category: Medical Plan: Results of lung cancer screening CT chest reviewed, no worrisome pulmonary nodules, continue with yearly screening, next in July of 2025. (3) KIRILL (obstructive sleep apnea): Code(s): G47.33 - Obstructive sleep apnea (adult) (pediatric) Category: Medical Plan: Significantly improved control on BiPAP therapy. Continue BiPAP therapy. (4) CO2 retention: Code(s): E87.29 - Other acidosis Category: Medical Plan: Significantly improved on BiPAP. Continue BiPAP therapy. Medications: New ipratropium-albuterol 0.5 mg-3 mg(2.5 mg base)/3 mL 3 mL inhalation Q4-6H PRN 270 mL 6RF wheezing Coding Level of Care Code Est Pt Level 4 (96867) Complex EM visit Add On G2211 Diagnoses COPD (chronic obstructive pulmonary disease) J44.9 Personal history of nicotine dependence Z87.891 KIRILL (obstructive sleep apnea) G47.33 CO2 retention E87.29
[2025-04-29 14:41] VITALS: BP 122/72; PULSE 102; O2SAT 92; BMI 39.7
== END 2025-04-29 15:02 | disposition home or self-care (01) ==
LOC: HO.HPS 14:37
PROVIDERS: PCP Family Medicine; Visit Provider Internal Medicine Pulmonary Disease
DX: J44.9 Chronic obstructive pulmonary disease, unspecified (principal); Z87.891 Personal history of nicotine dependence; G47.33 Obstructive sleep apnea (adult) (pediatric); E87.29 Other acidosis
CPT/HCPCS: 99214; G2211

== ENCOUNTER 2025-05-01 09:01 | Outpatient (REF) | payer OTHER, SELFPAY ==
--- NOTE | ~2025-05-01 | US_ITS ---
CLINICAL HISTORY: N12 - Tubulo-interstitial nephritis, not specified as acute or chronic US Renal Comparison: None provided Findings: Examination is limited by body habitus. Right kidney normal size and echotexture, 12.2 cm length. Left kidney normal size and echotexture, 12.1 cm length. No hydronephrosis of either kidney. Normal color Doppler. IMPRESSION: 1. No acute abnormality. No hydronephrosis. This document has been electronically signed by: Liss Person MD on 05/01/2025 19:45:52
== END 2025-05-01 09:02 | disposition home or self-care (01) ==
LOC: HO.US 09:01
PROVIDERS: PCP Internal Medicine Medical Oncology; Visit Provider Urology
DX: N20.0 Calculus of kidney (principal); N12 Tubulo-interstitial nephritis, not specified as acute or chronic
CPT/HCPCS: 76775

== ENCOUNTER → 2025-05-01 09:06 | Outpatient (BNV) | payer OTHER, SELFPAY | PROVIDERS: PCP Internal Medicine Medical Oncology; Visit Provider Student in an Organized Health Care Education/Training Program | DX: N12 Tubulo-interstitial nephritis, not specified as acute or chronic (principal) | CPT/HCPCS: 76775 ==

== ENCOUNTER 2025-05-03 11:26 | Outpatient (AMB) | payer OTHER, SELFPAY ==
--- NOTE | 2025-05-03 12:13 | MHC.OFFVIS ---
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 He is a patient of Dr. Boston. He is seen for the following urologic conditions - nephrolithiasis Nephrolithiasis Emergency visit 03/18 Distal left ureteric stones Initial elevated creatinine resolved after stone passage [facility] Medical History (Updated 05/03/25 @ 00:01 by Sushant Jacob) COPD (chronic obstructive pulmonary disease) Morbid obesity Diabetes mellitus KIRILL (obstructive sleep apnea) Smoker HTN (hypertension) Acid reflux Diverticulitis Surgical History Hx of colonoscopy History of colostomy reversal H/O colostomy Family History Mother Diabetes Arthritis Sleep apnea COPD (chronic obstructive pulmonary disease) Father Stomach cancer Diabetes Arthritis Sister Arthritis Social History Household Members: Spouse Household Members Other:: and kid Housing: Apartment Housing Other:: 4th floor Do you presently have visiting nurse or other home services: No Alcohol intake: former Comment: at bedside Patient Tobacco Use Status: Former Tobacco user Tobacco use type: Cigarette Cigarette Packs Per Day: 1 Cigarettes Per Day: 13 Years Smoked: 60 e-Cigarette/Vaping Use: Never Used Second Hand Smoke Exposure: No Advance Directives Date on File: 01/17/24 service: No Current occupational status: employed 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 Review of Systems Const Denies chills and Denies fever(s) Card Reports no additional complaints and Denies syncope Resp Denies cough GI Denies abdominal pain and Denies heartburn Reports as per HPI and Denies change in libido Neuro Denies syncope Psych Denies change in libido Endo Denies change in libido Physical Exam Const General: cooperative, healthy appearing, comfortable and no acute distress Orientation/consciousness: patient oriented x3 HEENT Face and sinus: Yes normal facial exam Mouth: moist mucous membranes Neck Neck: Yes normal visual inspection, Yes full ROM and Yes trachea midline Chest Chest palpation & inspection: normal inspection of the chest Resp Effort & Inspection: normal respiratory effort, able to speak in complete sentences and no respiratory distress GI Inspection: Yes normal to inspection Back/Spine/Pelvis Cervical Spine: normal cervical lordosis Thoracic/Lumbar Spine: thoracic and lumbar spine normal to inspection Skin General skin exam: no rashes or lesions noted Neuro General: patient oriented x3, gait normal, tone normal and moves all extremities Extrem General: Yes normal to inspection and Yes capillary refill normal Assessment & Plan Assessment & Plan (1) Ureteral stone with hydronephrosis: Code(s): N13.2 - Hydronephrosis with renal and ureteral calculous obstruction Category: Medical Plan Six-month follow-up renal ultrasound Orders: Orders US renal BI 6 Months N13.2 - Hydronephrosis with renal and ureteral calculous obstruction Patient Instructions: This note is constructed using voice recognition software. While every effort has been made to ensure accuracy chief of safety and protection errors may have been included. Imaging studies, laboratory and physical exam results were discussed and reviewed in detail. No major barriers to patient understanding were identified. An opportunity to ask questions regarding the treatment plan was provided. All questions were answered. The patient expressed understanding and agreement with the above treatment plan. The patient is aware they should contact our office by phone for worsening of their current condition or the appearance of new urologic symptoms. Compliance is encouraged with any medications and followup testing that is ordered. It is a privilege to participate in the urologic care of your patient. If you have any questions or concerns regarding treatment for the above conditions, or other urologic issues, please do not hesitate to contact me. The office telephone contact is [phone]. Sincerely, Dr Zane Almodovar MD, [facility] - Urology Compassionate Specialist Care for the Genitourinary System Coding Level of Care Code Est Pt Level 3 (31718) Diagnoses Ureteral stone with hydronephrosis N13.2
== END 2025-05-03 13:02 | disposition home or self-care (01) ==
LOC: HO.HUSH 11:27
PROVIDERS: PCP Internal Medicine Medical Oncology; Visit Provider Urology
DX: N13.2 Hydronephrosis with renal and ureteral calculous obstruction (principal)
CPT/HCPCS: 99213

== ENCOUNTER 2025-06-12 09:02 | Outpatient (REF) | payer OTHER, SELFPAY | END 2025-06-12 09:03 | disposition home or self-care (01) | LOC: HO.XRAY 09:02 | PROVIDERS: PCP Internal Medicine Medical Oncology; Visit Provider Surgery | DX: Z13.89 Encounter for screening for other disorder (principal) ==

== ENCOUNTER 2025-07-20 06:37 | Inpatient (IN) | payer OTHER, SELFPAY ==
[2025-07-20] VITALS (11 sets, daily range): BP systolic 136–161; BP diastolic 75–87; PULSE 77–110; RESP 16–30; TEMP 36.2–36.7; O2SAT 88–98; BMI 44.3; BMI 44.0
--- NOTE | ~2025-07-20 | XR_ITS ---
CLINICAL HISTORY: dyspnea 1 view chest x-ray Comparison: 04/23/2025 Findings: Hazy left basilar atelectasis/infiltrate. No significant change in cardiomediastinal silhouette. No acute fracture. IMPRESSION: 1. No acute findings. This document has been electronically signed by: Susy Cao MD on 07/20/2025 08:28:39
[2025-07-20] MEDS: Lactated Ringers 1,000 ML 999 ML IV (06:56)
--- NOTE | 2025-07-20 06:56 | ECG_ITS ---
Test Reason : DYSPNEA Blood Pressure : */* mmHG Vent. Rate : 89 BPM Atrial Rate : 89 BPM P-R Int : 140 ms QRS Dur : 88 ms QT Int : 358 ms P-R-T Axes : 58 34 57 degrees QTcB Int : 435 ms Poor data quality, interpretation may be adversely affected Normal sinus rhythm Possible Inferior infarct (cited on or before 01-Mar-2025) Abnormal ECG When compared with ECG of 23-Apr-2025 07:55, No significant change was found Referred By: Anitra Hinojosa Electronically Signed By: JYOTHI ORTIZ MD
[2025-07-20 07:07] LABS: VBG HCO3 33 mmol/L (22-26); VBG O2 % Saturation 87.0 %
[2025-07-20] MEDS: Albuterol Sulfate 5 MG, Albuterol/Iprat 2.5/0.5MG 3 ML 3 ML INHALE (07:07)
[2025-07-20 07:08] LABS: MANUAL DIFF FLAG NO
[2025-07-20 07:12] LABS: Hematocrit 46.4 % (42.0-52.0); Hemoglobin 14.3 g/dl (14.0-18.0); Imm Gran Abs Auto 0.04 X10*3/uL (0.00-0.03); Imm Gran Pct Auto 0.4 % (0.0-0.4); Lymphocytes Absolute Auto 3.0 X10*3/uL (1.2-4.9); Mean Corpuscular HGB Conc 30.8 g/dl (31.0-36.0); Mean Corpuscular Hemoglobin 27.5 pg (27.0-33.0); Mean Corpuscular Volume 89.2 fL (80.0-98.0); NRBC Abs Auto 0.000 X10*3/uL (0.0-0.012); NRBC Pct Auto 0.0 /100WBC (0.0-0.2); Platelet Count 365 X10*3/uL (160-400); Red Blood Count 5.20 X10*6/uL (4.60-5.80); White Blood Count 9.5 X10*3/uL (4.8-10.8)
--- NOTE | 2025-07-20 07:18 | PC.NURSE ---
Care of Pt assumed at change of shift (0700.) Pt is A&Ox3 with family at bedside RT evaluates Pt and Pt currently on BIPAP: 05/01 on 30% IVF running to gravity. Pt due for Magnesium however Pyxis is out of stock. Pharmacy contacted and awaiting delivery of med; MD aware. VSS Will continue to monitor.
--- NOTE | 2025-07-20 07:18 | ED.SOB ---
HPI - SOB/Dyspnea General Chief Complaint: Dyspnea Stated Complaint: sob Time Seen by Provider: 07/20/25 07:18 Source: patient, family and EMS Mode of arrival: EMS Limitations: no limitations History of Present Illness ED Provider: HPI Narrative: Patient with known COPD/emphysema who presents today accompanied by family for evaluation of worsening respiratory symptoms. He uses home oxygen via nasal cannula (2 L baseline, increases to 4 L PRN) and a BiPAP device at night. He also has an oxygen concentrator at home but will occasionally work without supplemental O2. reports that she does manage without oxygen however he also is getting a refill of oxygen tanks, no sick contacts, he works at [employer] but no direct exposure reported, quit smoking over a year ago, no fevers or chills no hemoptysis reported. Related Data Home Medications ?Medication ?Instructions ?Recorded ?Confirmed acetaminophen 500 mg tablet 1,000 mg PO DAILY PRN Pain 12/09/23 04/23/25 albuterol sulfate 90 mcg/actuation 2 inh inhalation Q4H PRN shortness 12/09/23 04/23/25 aerosol inhaler of breath or wheezing polyethylene glycol 3350 17 17 g PO BEDTIME 12/09/23 04/23/25 gram/dose oral powder (Miralax) calcium carbonate 550 mg-magnesium 3 - 4 tab PO Q2H PRN Heartburn 11/21/24 04/23/25 hydroxide 110 mg chewable tablet diclofenac sodium 1 % topical gel 2 g topical BID PRN Pain 04/23/25 04/23/25 naproxen 500 mg tablet 500 mg PO BID 04/23/25 04/23/25 Held on 04/25/25. Instructions: Resume on 04/30/25. semaglutide (weight loss) 0.5 0.5 mg subcut WE 04/23/25 04/23/25 mg/0.5 mL subcutaneous pen injector (Wegovy) tadalafil 20 mg tablet 20 mg PO DAILY 04/23/25 04/23/25 Previous Rx's ?Medication ?Instructions ?Recorded CPAP (CPAP Machine/Device) #1 ea 01/24/24 furosemide 40 mg tablet 40 mg PO DAILY #90 tabs 07/13/24 umeclidinium 62.5 mcg-vilanterol 1 ea PO DAILY #60 ea 01/07/25 25 mcg/actuation powdr for inhalation (Anoro Ellipta) ipratropium 20 mcg-albuterol 100 1 puff inhalation Q6H #1 ea 04/09/25 mcg/actuation mist for inhalation (Combivent Respimat) amlodipine 2.5 mg tablet 2.5 mg PO DAILY #90 tabs 04/25/25 azithromycin 250 mg tablet 250 mg PO Q24H #4 tabs 04/25/25 benzonatate 100 mg capsule 100 mg PO TID PRN Cough #21 caps 04/25/25 codeine 10 mg-guaifenesin 100 mg/5 10 ml PO Q4H PRN Cough #120 mL 04/25/25 mL oral liquid omeprazole 20 mg capsule,delayed 20 mg PO DAILY #30 caps 04/25/25 release prednisone 20 mg tablet 40 mg (2 x 20 mg) PO DAILY #8 tabs 04/25/25 arformoterol 15 mcg/2 mL solution 2 ml inhalation BID #120 mL 05/08/25 for nebulization (Brovana) theophylline 450 mg 450 mg PO DAILY #30 tabs 05/08/25 tablet,extended release,12 hr ipratropium 0.5 mg-albuterol 3 mg 3 ml inhalation Q4-6H PRN wheezing 07/09/25 (2.5 mg base)/3 mL nebulization #270 mL soln Allergies Allergy/AdvReac Type Severity Reaction Status Date / Time No Known Allergies Allergy Unknown Verified 07/20/25 06:48 Review of Systems Constitutional: Constitutional: [place] [facility] [place] Medical History Medical History (Updated 07/20/25 @ 09:02 by Chris Ramírez DO) COPD (chronic obstructive pulmonary disease) Morbid obesity Diabetes mellitus KIRILL (obstructive sleep apnea) Smoker HTN (hypertension) Acid reflux Diverticulitis Surgical History Hx of colonoscopy History of colostomy reversal H/O colostomy Family History Family History Mother Diabetes Arthritis Sleep apnea COPD (chronic obstructive pulmonary disease) Father Stomach cancer Diabetes Arthritis Sister Arthritis Social History Social History Household Members: Spouse Household Members Other:: and kid Housing: Apartment Housing Other:: 4th floor Do you presently have visiting nurse or other home services: No Alcohol intake: former Comment: at bedside Patient Tobacco Use Status: Former Tobacco user Tobacco use type: Cigarette Cigarette Packs Per Day: 1 Cigarettes Per Day: 13 Years Smoked: 60 e-Cigarette/Vaping Use: Never Used Second Hand Smoke Exposure: No Advance Directives: Yes Advance Directives on File: Yes Advance Directives Date on File: 01/17/24 service: No Current occupational status: employed 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 Physical Exam Exam: Exam: ?General: ??On initial evaluation was already on BiPAP, increased BMI Short neck ?CV: RRR, no obvious murmurs appreciated ?Resp: ?No wheezing rales rhonchi no stridor moving air well Abd: ?Bowel sounds are present, obese, reducible periumbilical hernia MSK: FROM, strength 5/5 all extremities, no lower extremity edema Skin: Warm, dry, intact, ?Neuro: ?Alert and oriented x3, moving upper and lower extremities symmetrically, no obvious facial asymmetry noted, cranial nerves 2-12 intact Vital Signs: Vital Signs: Last Vital Signs Temp 97.4 F 07/20/25 06:43 Pulse 77 07/20/25 08:04 Resp 18 07/20/25 08:04 BP 136/87 07/20/25 08:04 Pulse Ox 96 07/20/25 08:04 O2 Del Method BiPAP 07/20/25 08:04 BMI result Body Mass Index 44.3 Medications Administered Discontinued Medications Generic Name Dose Route Start Last Admin Trade Name Orquidea PRN Reason Stop Dose Admin Albuterol Sulfate 5 mg/ 0 mg 07/20/25 07:05 07/20/25 07:07 Albuterol/Ipratropium 3 ml INHALE 07/20/25 07:06 7.5 each ONCE ONE Administration Albuterol Sulfate 2.5 mg/ 0 mg 07/20/25 07:54 07/20/25 07:56 Albuterol/Ipratropium 3 ml INHALE 07/20/25 07:55 1 dose ONCE ONE Administration Lactated Ringer's 1,000 mls @ 999 mls/hr 07/20/25 06:50 07/20/25 08:35 Lr IV 07/20/25 07:50 Infused .Q1H1M ONE Infusion Methylprednisolone Sodium Succinate 60 mg 07/20/25 06:49 07/20/25 06:55 Methylprednisolone Sod Succ 125 Mg/2 Ml Vial IVPUSH 07/20/25 06:50 60 mg ONCE ONE Administration Medical Decision Making Medical Decision Making [facility] Narrative: 8:57 AM 07/20/2025 (Dr. Chris Ramírez): Patient who uses BiPAP at home, history of COPD, obesity hypoventilation syndrome, presenting with shortness of breath significant wheezing, and was immediately placed on BiPAP and was given nebulizer treatments, continue to monitor him and at the time of this note he is off BiPAP, his CO2 is 65, he has been much higher than that and has been lower as well down to the 50s chest x-ray without pneumonia, CHF or pneumothorax, I will continue to monitor the patient on his nasal cannula O2 independently how he is doing we will determine disposition 9:09 AM 07/20/2025 (Dr. Chris Ramírez): Re-evaluated, admission is indicated what he is doing well on nasal cannula Differential Diagnosis Differential Diagnoses: The differential diagnosis associated with the presentation includes (ACS, pneumothorax, aortic dissection, PE, Boerhaave syndrome) Admission/Observation Consideration of admission/observation: Escalation of care including admission/observation considered Lab Data [facility] Lab Attestation statement: I reviewed the patient's lab results. 07/20/25 06:58 07/20/25 06:58 Labs: Lab Results 07/20/25 07/20/25 Range/Units 06:58 07:03 WBC 9.5 (4.8-10.8) X10*3/uL RBC 5.20 (4.60-5.80) X10*6/uL Hgb 14.3 (14.0-18.0) g/dl Hct 46.4 (42.0-52.0) % MCV 89.2 (80.0-98.0) fL MCH 27.5 (27.0-33.0) pg MCHC 30.8 L (31.0-36.0) g/dl RDW 16.3 H (11.0-16.0) % Plt Count 365 (160-400) X10*3/uL MPV 9.7 (9.4-12.4) fL Immature Gran % (Auto) 0.4 (0.0-0.4) % Neut % (Auto) 56.9 (45-73) % Lymph % (Auto) 32.1 (20-40) % [place] % (Auto) 8.0 (2-11) % Eos % (Auto) 2.1 (0-4) % Baso % (Auto) 0.5 (0-2) % Lymph # (Auto) 3.0 (1.2-4.9) X10*3/uL [place] # (Auto) 0.8 (0.1-1.2) X10*3/uL Eos # (Auto) 0.2 (0.0-0.4) X10*3/uL Baso # (Auto) 0.1 (0.0-0.2) X10*3/uL Abs Immat Gran (auto) 0.04 H (0.00-0.03) X10*3/uL Absolute Neuts (auto) 5.4 (2.0-8.3) x10*3/uL Absolute Nucleated RBC 0.000 (0.0-0.012) X10*3/uL Nucleated RBC % (auto) 0.0 (0.0-0.2) /100WBC Hold Purple Top SEE NOTE VBG pH 7.31 L (7.32-7.43) VBG pCO2 65 mmHg VBG pO2 61 mmHg VBG HCO3 33 H (22-26) mmol/L VBG O2 Saturation 87.0 % VBG Base Excess 4.7 mmol/L Sodium 143 (135-145) mmol/L Potassium 4.6 (3.3-5.1) mmol/L Chloride 107 (96-108) mmol/L Carbon Dioxide 26 (22-29) mmol/L Anion Gap 15 (12-20) BUN 12 (9-16) mg/dL Creatinine 0.89 (0.5-1.4) mg/dL Estim Creat Clear Calc 125.4 Estimated GFR > 60 Random Glucose 78 (60-115) mg/dL Lactic Acid 1.9 (0.5-2.0) mmol/L Calcium 9.5 (8.4-10.2) mg/dL Magnesium 2.4 (1.6-2.6) mg/dL Total Bilirubin 0.1 (0.0-1.0) mg/dL AST 33 (5-37) U/L ALT 17 (0-40) U/L Alkaline Phosphatase 123 H (39-117) U/L Troponin I High Sens 3.3 (<3.5-35.0) ng/L NT-Pro-B Natriuret Pep 24.6 (<300) pg/mL Total Protein 7.6 (6.5-8.0) g/dL Albumin 3.9 (3.5-5.0) g/dL Influenza Type A (PCR) NEGATIVE (Negative) Influenza Type B (PCR) NEGATIVE (Negative) RSV RNA Qual (PCR) NEGATIVE (Negative) SARS-CoV-2 RNA (RT-PCR) NEGATIVE (Negative) Independent Interpretation I performed an independent interpretation of an: EKG (89 beats per minute otherwise normal ECG without dysrhythmia, AV fabricio blocks or ST-T changes to suspect underlying ACS, my independent interpretation) and Plain X-Ray (My independent chest xray interpretation: Lungs: Lungs are clear bilaterally without evidence of focal consolidation, pleural effusion, or pneumothorax. Cardiac silhouette is unremarkable, no obvious mediastinal widening, no obvious bony abnormalities such as fractures. Impression: Normal chest X-r) Radiology Impression Discussion of test interpretation with radiology: I have reviewed the radiologist's reading. Independent Historian Clinical information obtained from an independent historian. History obtained from or confirmed by: Spouse and EMS Chronic Conditions Patient?s care impacted by: Other (COPD) Critical Care Time Critical Care Time Critical Care Time: Yes Total Critical Care Time: 45 Attestation: Time is exclusive of separately billable procedures. Time includes: direct patient care, patient reassessment, coordination of patient care, interpretation of data (laboratory data, pulse oximetry, arterial blood gases and chest xrays), review of patient's medical records, medical consultation and documentation of patient care. Procedures excluded from critical care time: central intravenous line placement and electrocardiography. Discharge Plan Discharge Clinical Impression: Acute exacerbation of chronic obstructive pulmonary disease Prescriptions: No Action furosemide 40 mg tablet 40 mg PO DAILY Qty: 90 4RF umeclidinium-vilanterol [Anoro Ellipta] 62.5-25 mcg/actuation blister with device 1 ea PO DAILY Qty: 60 6RF Rx Instructions: by inhalation Combivent Respimat 20-100 mcg/actuation mist 1 puff inhalation Q6H Qty: 1 6RF theophylline 450 mg tablet extended release 12 hr 450 mg PO DAILY Qty: 30 6RF arformoterol [Brovana] 15 mcg/2 mL solution for nebulization 2 ml inhalation BID Qty: 120 6RF ipratropium-albuterol 0.5 mg-3 mg(2.5 mg base)/3 mL solution for nebulization 3 ml inhalation Q4-6H PRN (Reason: wheezing) Qty: 270 6RF (DME) CPAP Machine/Device Device See Rx Instructions .Route Qty: 1 0RF Rx Instructions: As directed. Auto cpap 5-20. with all supplies Length of need lifetime acetaminophen 500 mg Tablet 1,000 mg PO DAILY PRN (Reason: Pain) polyethylene glycol 3350 [Miralax] 17 gram/dose Powder 17 g PO BEDTIME albuterol sulfate 90 mcg/actuation HFA aerosol inhaler 2 inh inhalation Q4H PRN (Reason: shortness of breath or wheezing) calcium carbonate-mag hydroxid 550-110 mg Tablet,Chewable 3 - 4 tab PO Q2H PRN (Reason: Heartburn) naproxen 500 mg tablet 500 mg PO BID diclofenac sodium 1 % gel 2 g topical BID PRN (Reason: Pain) Wegovy 0.5 mg/0.5 mL pen injector 0.5 mg subcut WE tadalafil 20 mg tablet 20 mg PO DAILY codeine-guaifenesin 10-100 mg/5 mL Liquid 10 ml PO Q4H PRN (Reason: Cough) Qty: 120 0RF benzonatate 100 mg Capsule 100 mg PO TID PRN (Reason: Cough) Qty: 21 0RF prednisone 20 mg Tablet 40 mg PO DAILY Qty: 8 0RF omeprazole 20 mg capsule,delayed release(DR/EC) 20 mg PO DAILY Qty: 30 0RF azithromycin 250 mg Tablet 250 mg PO Q24H Qty: 4 0RF amlodipine 2.5 mg Tablet 2.5 mg PO DAILY Qty: 90 0RF Protocol: Hold for SBP< HOLD for SBP < : 90 Print Language: Georgian
[2025-07-20 07:19] LABS: Venous Blood Gas Refer to POC result
--- NOTE | 2025-07-20 07:35 | MHC.EDTECH ---
attempted to do second set of blood cultures, attempted unsuccessful. Pt & state he tends to be ultrasound he a difficult stick. Md Tran made aware of pending the white results.
[2025-07-20 07:44] LABS: Alanine Aminotransferase 17 U/L (0-40); Albumin Level 3.9 g/dL (3.5-5.0); Alkaline Phosphatase 123 U/L (39-117); Anion Gap 15 (12-20); Aspartate Amino Transferase 33 U/L (5-37); Blood Urea Nitrogen 12 mg/dL (9-16); Calcium 9.5 mg/dL (8.4-10.2); Carbon Dioxide 26 mmol/L (22-29); Chloride 107 mmol/L (96-108); Creatinine Clr Calc Pharmacy 125.4; Estimated Glomerular Filt Rate > 60; Magnesium 2.4 mg/dL (1.6-2.6); Potassium 4.6 mmol/L (3.3-5.1); Sodium 143 mmol/L (135-145); Total Protein 7.6 g/dL (6.5-8.0)
[2025-07-20 07:49] LABS: Resp Syncy Virus RNA Qual PCR NEGATIVE (Negative); SARS COV2 PCR INHOUSE NEGATIVE (Negative)
[2025-07-20 07:50] LABS: NT Pro B Type Natriuretic Pept 24.6 pg/mL (<300); Troponin-I High Sensitivity 3.3 ng/L (<3.5-35.0)
[2025-07-20] MEDS: Albuterol Sulfate 2.5 MG, Albuterol/Iprat 2.5/0.5MG 3 ML 3 ML INHALE (07:56)
--- NOTE | 2025-07-20 09:36 | P.HPHOSP_ITS ---
History of Present Illness Date of Service: 07/20/25 Attending physician on admission: Stephani Cortez Chief Complaint: shortness of breath This is a 59-year-old male with history of COPD chronic respiratory failure, KIRILL who presents to the emergency department with shortness of breath. Patient reports onset of shortness of breaths 2-3 days ago but became substantially worse this morning. 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 He has had no associated fever. He was tachypneic, tachycardic and hypoxic on arrival and was initially placed on bipap. CXR was negative for infection. He received multiple breathing treatments but continued to remain dyspneic. RSV, covid -19 and flu was negative. Of note, the patient does use oxygen at home, but does not wear it to work. Review of Systems 2 Review of Systems: Yes all other systems are reviewed and are negative Constitutional: Constitutional: Denies chills and Denies fever(s) Cardiovascular: Cardiovascular: Denies chest pain, Denies palpitations and Reports dyspnea Respiratory: Respiratory: Reports dyspnea Endocrine: Endocrine: Denies palpitations [facility] Medical History COPD (chronic obstructive pulmonary disease) Morbid obesity Diabetes mellitus KIRILL (obstructive sleep apnea) Smoker HTN (hypertension) Acid reflux Diverticulitis Family History Mother Diabetes Arthritis Sleep apnea COPD (chronic obstructive pulmonary disease) Father Stomach cancer Diabetes Arthritis Sister Arthritis Surgical History Hx of colonoscopy History of colostomy reversal H/O colostomy Social History Household Members: Spouse Household Members Other:: and kid Housing: Apartment Housing Other:: 4th floor Do you presently have visiting nurse or other home services: No Alcohol intake: former Comment: at bedside Patient Tobacco Use Status: Former Tobacco user Tobacco use type: Cigarette Cigarette Packs Per Day: 1 Cigarettes Per Day: 13 Years Smoked: 60 e-Cigarette/Vaping Use: Never Used Second Hand Smoke Exposure: No Advance Directives: Yes Advance Directives on File: Yes Advance Directives Date on File: 01/17/24 service: No Current occupational status: employed 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 Meds Allergies Allergy/AdvReac Type Severity Reaction Status Date / Time No Known Allergies Allergy Unknown Verified 07/20/25 06:48 Home Medications ?Medication ?Instructions ?Recorded ?Confirmed ?Last Taken ?Type acetaminophen 500 mg tablet 1,000 mg PO DAILY PRN Pain 12/09/23 07/20/25 11/20/24 History albuterol sulfate 90 mcg/actuation 2 inh inhalation Q4 H PRN shortness 12/09/23 07/20/25 11/21/24 History aerosol inhaler of breath or wheezing polyethylene glycol 3350 17 17 g PO BEDTIME 12/09/23 1 09/20/24 04/22/25 History gram/dose oral powder (Miralax) calcium carbonate 550 mg-magnesium 3 - 4 tab PO Q2H ID N Heartburn 11/21/24 07/20/25 11/20/24 History hydroxide 110 mg chewable tablet naproxen 500 mg tablet 500 mg PO BID PRN Pain (Scal e 04/23/25 07/20/25 04/23/25 History Held on 04/25/25. Score 4-6) Instructions: Resume on 04/30/25. arformoterol 15 mcg/2 mL solution 2 ml inhalation BID 07/20/25 07/20/25 Unknown History for nebulization prednisone 20 mg tablet 20 mg PO DAILY 07/20/2506/25 Unknown History scopolamine base 1 mg over 3 days 1 patch transdermal Q3D PRN Nausea 07/20/25 07/20/25 Unknown History transdermal patch Physical Exam 2 Vital Signs and Narrative: Vital Signs: Last Vital Signs Temp 97.4 F 07/20/25 06:43 Pulse 77 07/20/25 08:04 Resp 18 07/20/25 08:04 BP 136/87 07/20/25 08:04 Pulse Ox 96 07/20/25 08:04 O2 Del Method BiPAP 07/20/25 08:04 BMI result Body Mass Index 44.3 Const: General: cooperative, comfortable, alert and awake Nutritional Appearance: obese Orientation/consciousness: patient oriented x3 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 Resp: Other: diminished breath sounds, wheeze Effort & Inspection: no respiratory distress and no use of accessory muscles Cardio: Rate: regular rate GI: Inspection: Yes obesity Palpation (GI): Soft to palpation and nontender Neuro: General: patient oriented x3 and moves all extremities Results Labs 07/20/25 06:58 07/20/25 06:58 Labs: Laboratory Results - last 24 hr 07/20/25 07/20/25 06:58 07:03 MCV 89.2 MCH 27.5 MCHC 30.8 L RDW 16.3 H Plt Count 365 MPV 9.7 Immature Gran % (Auto) 0.4 Neut % (Auto) 56.9 Lymph % (Auto) 32.1 [place] % (Auto) 8.0 Eos % (Auto) 2.1 Baso % (Auto) 0.5 Lymph # (Auto) 3.0 [place] # (Auto) 0.8 Eos # (Auto) 0.2 Baso # (Auto) 0.1 Abs Immat Gran (auto) 0.04 H Absolute Neuts (auto) 5.4 Absolute Nucleated RBC 0.000 Nucleated RBC % (auto) 0.0 Hold Purple Top SEE NOTE VBG pH 7.31 L VBG pCO2 65 VBG pO2 61 VBG HCO3 33 H VBG O2 Saturation 87.0 VBG Base Excess 4.7 Anion Gap 15 Estim Creat Clear Calc 125.4 Estimated GFR > 60 Random Glucose 78 Lactic Acid 1.9 Calcium 9.5 Magnesium 2.4 Total Bilirubin 0.1 AST 33 ALT 17 Alkaline Phosphatase 123 H Troponin I High Sens 3.3 NT-Pro-B Natriuret Pep 24.6 Total Protein 7.6 Albumin 3.9 Influenza Type A (PCR) NEGATIVE Influenza Type B (PCR) NEGATIVE RSV RNA Qual (PCR) NEGATIVE SARS-CoV-2 RNA (RT-PCR) NEGATIVE Assessment and Plan (1) COPD (chronic obstructive pulmonary disease): Status: Acute (2) Hypoxic respiratory failure: Status: Acute Plan This is a 59-year-old male with chronic respiratory failure, COPD, KIRILL on nocturnal bipap, hypertension who presents to the emergency department with shortness of breath found to be hypoxic Acute on chronic respiratory failure with hypoxia Due to acute COPD exacerbation likely worsened by noncompliance with supplemental oxygen and compounded by obesity hypoventilation CXR negative for pneumonia, viral screen negative upon review of med list, pt was prescribed 10 days of oral prednisone about a week ago. hold and treat with IV solu-medrol scheduled and as needed breathing treatments Continue supplemental oxygen Continue home dose of theophylline KIRILL Nocturnal BiPAP T2DM Hba1c in march was 6.5 no diabetic meds on med list SSI, POCs, ADA diet HTN continue norvasc and lasix morbid obesity BMI 44.3 contributing to respiratory symptoms dvt ppx - lovenox Patient will likely require 2 midnight stay in the hospital for management of COPD exacerbation requiring close respiratory monitoring, IV steroids and frequent breathing treatments Quality Stroke Does the patient have a stroke diagnosis?: No VTE Prior VTE?: No VTE Risk Level:: Medical - moderate - high VTE Device Contraindication: N/A - Device Ordered VTE Drug Contraindication: N/A - Med Ordered
[2025-07-20] MEDS: Magnesium Sulfate/H2O 2 GM/50 ML PIGGYBACK IV (09:56)
--- NOTE | 2025-07-20 10:38 | PHA.MEDREC ---
Pharmacy Consult ? Medication Reconciliation Pharmacy has completed the medication reconciliation.Med rec complete, spoke to patients and compared with pharmacy claims history
[2025-07-20 10:44] LABS: Venous Blood Gas Refer to POC result
[2025-07-20 10:45] LABS: VBG HCO3 30 mmol/L (22-26); VBG O2 % Saturation 100.0 %
[2025-07-20 13:01] LABS: Glucose, Whole Blood 166 mg/dL (60-115)
--- NOTE | 2025-07-20 15:17 | MHC.CM.PN ---
DX COPD Exacerbation He lives with his . He is independent with all functional mobility. Home O2 3L with ambulation. Josue is the provider. Patient works at [employer]. He will arrange for a ride home.
[2025-07-20 16:51] LABS: Glucose, Whole Blood 136 mg/dL (60-115)
[2025-07-20] MEDS: 0.9 % Sodium Chloride Flush 3 ML SYRINGE IVFLUSH ×2 (17:44→21:09)
[2025-07-20] MEDS: Albuterol/Iprat 2.5/0.5MG 3 ML AMPUL.NEB INHALE (19:53)
[2025-07-20 20:46] LABS: Glucose, Whole Blood 124 mg/dL (60-115)
[2025-07-21] VITALS (10 sets, daily range): BP systolic 133–140; BP diastolic 62–92; PULSE 69–96; RESP 16–25; TEMP 36.1–36.6; O2SAT 93–99
[2025-07-21] MEDS: Albuterol/Iprat 2.5/0.5MG 3 ML AMPUL.NEB INHALE ×4 (02:18→19:27)
[2025-07-21 05:36] LABS: MANUAL DIFF FLAG NO
[2025-07-21 05:37] LABS: Hematocrit 47.6 % (42.0-52.0); Hemoglobin 14.3 g/dl (14.0-18.0); Imm Gran Abs Auto 0.14 X10*3/uL (0.00-0.03); Imm Gran Pct Auto 0.8 % (0.0-0.4); Lymphocytes Absolute Auto 1.7 X10*3/uL (1.2-4.9); Mean Corpuscular HGB Conc 30.0 g/dl (31.0-36.0); Mean Corpuscular Hemoglobin 27.0 pg (27.0-33.0); Mean Corpuscular Volume 89.8 fL (80.0-98.0); NRBC Abs Auto 0.000 X10*3/uL (0.0-0.012); NRBC Pct Auto 0.0 /100WBC (0.0-0.2); Platelet Count 355 X10*3/uL (160-400); Red Blood Count 5.30 X10*6/uL (4.60-5.80); White Blood Count 16.7 X10*3/uL (4.8-10.8)
[2025-07-21 05:55] LABS: Alanine Aminotransferase 13 U/L (0-40); Albumin Level 4.1 g/dL (3.5-5.0); Alkaline Phosphatase 100 U/L (39-117); Anion Gap 12 (12-20); Aspartate Amino Transferase 15 U/L (5-37); Blood Urea Nitrogen 15 mg/dL (9-16); Calcium 9.5 mg/dL (8.4-10.2); Carbon Dioxide 32 mmol/L (22-29); Chloride 100 mmol/L (96-108); Creatinine Clr Calc Pharmacy 142.6; Estimated Glomerular Filt Rate > 60; Magnesium 2.5 mg/dL (1.6-2.6); Potassium 4.6 mmol/L (3.3-5.1); Sodium 139 mmol/L (135-145); Total Protein 7.5 g/dL (6.5-8.0)
--- NOTE | 2025-07-21 07:31 | P.PNIM_ITS ---
Subjective Subjective Date of Service: 07/21/25 Interval History: wheezing and Anxious Review of Systems Review of Systems: Yes all other systems are reviewed and are negative Physical Exam 2 Exam: Exam: Appearance: Alert.? Oriented X3, inc WOB, morbid obesity cvs: rrr, [id number] , no murmur res: Air entry diminished, bilateral wheezing, mild use of accessory muscles. abd: no rebound or guarding ,nt, bs present. neuro: axo3 , nonfocal. Vital Signs: Vital Signs: Last Vital Signs Temp 97.9 F 07/21/25 07:26 Pulse 82 07/21/25 07:26 Resp 20 07/21/25 07:26 BP 140/73 H 07/21/25 07:26 Pulse Ox 96 07/21/25 07:26 O2 Del Method Nasal Cannula 07/21/25 07:26 O2 Flow Rate 3 07/21/25 07:26 BMI result Body Mass Index 44.0 Objective Data Active Medications Acetaminophen (Acetaminophen 325 Mg Tablet) 650 mg PO Q6H PRN PRN Reason: Pain, Mild 1-3,fever,headache Albuterol/Ipratropium (Albuterol/Iprat 2.5/0.5mg 3 Ml Ampul.Neb) 3 ml INHALE RQ6H WHILE AWAKE KT Last Admin: 07/20/25 19:53 Dose: 3 ml Documented By: ALEJANDRA Albuterol/Ipratropium (Albuterol/Iprat 2.5/0.5mg 3 Ml Ampul.Neb) 3 ml INHALE RQ4H WHILE AWAKE PRN PRN Reason: shortness of breath/wheezing Last Admin: 07/21/25 02:18 Dose: 3 ml Documented By: ALEJANDRA Amlodipine Besylate (Amlodipine Besylate 2.5 Mg Tablet) 2.5 mg PO DAILY KT; Protocol Calcium Carbonate (Calcium Carbonate 750 Mg Tab.Chew) 750 mg PO Q4H PRN PRN Reason: Heartburn Dextrose (Dextrose 50 % 25 Gm/50 Ml Syringe) 25 gm IVPUSH Q15M PRN; Protocol PRN Reason: per Hypoglycemia Standing Ord. Enoxaparin Sodium (Enoxaparin Sodium 40 Mg/0.4 Ml Syringe) 40 mg SUBCUT Q24H KT Last Admin: 07/20/25 11:34 Dose: 40 mg Documented By: DENNIS Furosemide (Furosemide 40 Mg Tablet) 40 mg PO DAILY [facility]; Protocol Glucose (Glucose Gel 15 Gm Gel..Gram.) 15 gm PO Q15M PRN; Protocol PRN Reason: per Hypoglycemia Standing Ord. Insulin Human Lispro (Insulin Lispro 100 Unit/Ml 3 Ml Vial) 0 unit SUBCUT QIDACHS [facility]; Protocol Last Admin: 07/20/25 20:49 Dose: Not Given Documented By: KAREN Non-Admin Reason: No Insulin Coverage Magnesium Hydroxide (Milk Of Magnesia 30 Ml Oral.Susp) 30 ml PO DAILY PRN PRN Reason: Constipation Melatonin (Melatonin 3 Mg Tablet) 6 mg PO BEDTIME PRN PRN Reason: Insomnia Methylprednisolone Sodium Succinate (Methylprednisolone Sod Succ 40 Mg/Ml Vial) 40 mg IVPUSH Q12H [facility] Last Admin: 07/21/25 05:11 Dose: 40 mg Documented By: KAREN Polyethylene Glycol (Polyethylene Glycol 3350 17 Gm Powd.Pack) 17 gm PO BEDTIME [facility] Last Admin: 07/20/25 21:06 Dose: 17 gm Documented By: KAREN Sodium Chloride (0.9 % Sodium Chloride Flush 3 Ml Syringe) 3 ml IVFLUSH QSHIFT [facility] Last Admin: 07/20/25 21:09 Dose: 3 ml Documented By: KAREN Theophylline (Theophylline Anhydrous Er 300 Mg Tab.Er.12h) 450 mg PO DAILY [facility] Labs 07/21/25 05:10 07/21/25 05:10 Labs: Laboratory Results - last 24 hr 07/20/25 07/20/25 07/20/25 06:58 10:41 11:58 MCV MCH MCHC RDW Plt Count MPV Immature Gran % (Auto) Neut % (Auto) Lymph % (Auto) [place] % (Auto) Eos % (Auto) Baso % (Auto) Lymph # (Auto) [place] # (Auto) Eos # (Auto) Baso # (Auto) Abs Immat Gran (auto) Absolute Neuts (auto) Absolute Nucleated RBC Nucleated RBC % (auto) VBG pH 7.33 VBG pCO2 56 VBG pO2 136 VBG HCO3 30 H VBG O2 Saturation 100.0 VBG Base Excess 2.7 Anion Gap 15 Estim Creat Clear Calc 125.4 Estimated GFR > 60 POC Glucose 166 H Random Glucose 78 Lactic Acid 1.9 Calcium 9.5 Magnesium 2.4 Total Bilirubin 0.1 AST 33 ALT 17 Alkaline Phosphatase 123 H Troponin I High Sens 3.3 NT-Pro-B Natriuret Pep 24.6 Total Protein 7.6 Albumin 3.9 Influenza Type A (PCR) NEGATIVE Influenza Type B (PCR) NEGATIVE RSV RNA Qual (PCR) NEGATIVE SARS-CoV-2 RNA (RT-PCR) NEGATIVE 07/20/25 07/20/25 07/21/25 16:47 20:42 05:10 MCV 89.8 MCH 27.0 MCHC 30.0 L RDW 16.2 H Plt Count 355 MPV 9.2 L Immature Gran % (Auto) 0.8 H Neut % (Auto) 83.8 H Lymph % (Auto) 10.3 L [place] % (Auto) 5.0 Eos % (Auto) 0.0 Baso % (Auto) 0.1 Lymph # (Auto) 1.7 [place] # (Auto) 0.8 Eos # (Auto) 0.0 Baso # (Auto) 0.0 Abs Immat Gran (auto) 0.14 H Absolute Neuts (auto) 13.9 H Absolute Nucleated RBC 0.000 Nucleated RBC % (auto) 0.0 VBG pH VBG pCO2 VBG pO2 VBG HCO3 VBG O2 Saturation VBG Base Excess Anion Gap 12 Estim Creat Clear Calc 142.6 Estimated GFR > 60 POC Glucose 136 H 124 H Random Glucose 95 Lactic Acid Calcium 9.5 Magnesium 2.5 Total Bilirubin 0.2 AST 15 ALT 13 Alkaline Phosphatase 100 Troponin I High Sens NT-Pro-B Natriuret Pep Total Protein 7.5 Albumin 4.1 Influenza Type A (PCR) Influenza Type B (PCR) RSV RNA Qual (PCR) SARS-CoV-2 RNA (RT-PCR) Assessment and Plan (1) COPD with acute exacerbation: Status: Acute Plan Pt is a 59-year-old male with chronic respiratory failure, COPD, KIRILL on nocturnal bipap, hypertension who presents to the emergency department with shortness of breath found to be hypoxic likely due to AECOPD (noncompliance) Acute on chronic respiratory failure with hypoxia Due to acute COPD exacerbation likely worsened by noncompliance with supplemental oxygen and compounded by obesity hypoventilation CXR negative for pneumonia, viral screen negative Cont IV solu-medrol scheduled and as needed breathing treatments Continue supplemental oxygen Continue home dose of theophylline AE HFpEF TTE requested tele, trop EKG elevated pro-bnp severe anxiety Atrax tid prn - change to kt if needed KIRILL Nocturnal BiPAP T2DM 2 Hba1c in march was 6.5 no diabetic meds on med list SSI, POCs, ADA diet HTN continue norvasc and lasix morbid obesity BMI 44.0 contributing to respiratory symptoms dvt ppx - lovenox Patient will likely ongoing hosp for management of COPD exacerbation requiring close respiratory monitoring, IV steroids and frequent breathing treatments Quality Stroke Does the patient have a stroke diagnosis?: No VTE Prior VTE?: No VTE Risk Level:: Medical - moderate - high VTE Device Contraindication: N/A - Device Ordered VTE Drug Contraindication: N/A - Med Ordered
[2025-07-21 07:33] LABS: Glucose, Whole Blood 136 mg/dL (60-115)
[2025-07-21] MEDS: Theophylline Anhydrous ER 300 MG TAB.ER.12H 450 MG PO (08:00)
[2025-07-21] MEDS: 0.9 % Sodium Chloride Flush 3 ML SYRINGE IVFLUSH ×3 (08:06→21:36)
[2025-07-21 11:23] LABS: Glucose, Whole Blood 132 mg/dL (60-115)
[2025-07-21 16:13] LABS: Glucose, Whole Blood 132 mg/dL (60-115)
[2025-07-21 20:19] LABS: Glucose, Whole Blood 127 mg/dL (60-115)
[2025-07-22 01:10] VITALS: PULSE 84; RESP 18; O2SAT 92
[2025-07-22 03:23] VITALS: BP 161/88; PULSE 94; RESP 20; TEMP 36.6; O2SAT 93
[2025-07-22] MEDS: Albuterol/Iprat 2.5/0.5MG 3 ML AMPUL.NEB INHALE ×2 (03:34→07:58)
[2025-07-22 03:36] VITALS: PULSE 94; RESP 24; O2SAT 94
[2025-07-22 06:27] LABS: MANUAL DIFF FLAG NO
[2025-07-22 06:32] LABS: Hematocrit 45.0 % (42.0-52.0); Hemoglobin 14.0 g/dl (14.0-18.0); Imm Gran Abs Auto 0.10 X10*3/uL (0.00-0.03); Imm Gran Pct Auto 0.6 % (0.0-0.4); Lymphocytes Absolute Auto 1.8 X10*3/uL (1.2-4.9); Mean Corpuscular HGB Conc 31.1 g/dl (31.0-36.0); Mean Corpuscular Hemoglobin 27.7 pg (27.0-33.0); Mean Corpuscular Volume 88.9 fL (80.0-98.0); NRBC Abs Auto 0.020 X10*3/uL (0.0-0.012); NRBC Pct Auto 0.1 /100WBC (0.0-0.2); Platelet Count 351 X10*3/uL (160-400); Red Blood Count 5.06 X10*6/uL (4.60-5.80); White Blood Count 15.9 X10*3/uL (4.8-10.8)
[2025-07-22 06:46] LABS: Alanine Aminotransferase 14 U/L (0-40); Albumin Level 3.9 g/dL (3.5-5.0); Alkaline Phosphatase 106 U/L (39-117); Anion Gap 12 (12-20); Aspartate Amino Transferase 14 U/L (5-37); Blood Urea Nitrogen 25 mg/dL (9-16); Calcium 9.5 mg/dL (8.4-10.2); Carbon Dioxide 35 mmol/L (22-29); Chloride 98 mmol/L (96-108); Creatinine Clr Calc Pharmacy 111.2; Estimated Glomerular Filt Rate > 60; Magnesium 2.4 mg/dL (1.6-2.6); Potassium 4.3 mmol/L (3.3-5.1); Sodium 141 mmol/L (135-145); Total Protein 7.3 g/dL (6.5-8.0)
[2025-07-22 07:36] LABS: Glucose, Whole Blood 101 mg/dL (60-115)
[2025-07-22 07:49] VITALS: BP 143/88; PULSE 81; RESP 18; TEMP 36.5; O2SAT 96
[2025-07-22 07:59] VITALS: PULSE 80; RESP 18; O2SAT 97
[2025-07-22] MEDS: Theophylline Anhydrous ER 300 MG TAB.ER.12H 450 MG PO (08:22)
[2025-07-22] MEDS: 0.9 % Sodium Chloride Flush 3 ML SYRINGE IVFLUSH (08:23)
[2025-07-22 11:32] LABS: Glucose, Whole Blood 161 mg/dL (60-115)
--- NOTE | 2025-07-22 11:58 | P.DS_ITS ---
DS: Providers Provider Date of admission: 07/20/25 09:28 Date of discharge: 07/22/25 Primary care physician: Unknown Physician DS: Diagnosis Discharge Diagnosis (1) COPD with acute exacerbation: Status: Acute DS: Summary Hospital Course Hospital Course: From admission HPI: Date of Service: 07/20/25 Attending physician on admission: Stephani Cortez Chief Complaint: shortness of breath This is a 59-year-old male with history of COPD chronic respiratory failure, KIRILL who presents to the emergency department with shortness of breath. Patient reports onset of shortness of breaths 2-3 days ago but became substantially worse this morning. 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 He has had no associated fever. He was tachypneic, tachycardic and hypoxic on arrival and was initially placed on bipap. CXR was negative for infection. He received multiple breathing treatments but continued to remain dyspneic. RSV, covid -19 and flu was negative. Of note, the patient does use oxygen at home, but does not wear it to work. Hospital course Pt was admitted to the hospital for acute on chronic hypoxic respiratory failure in setting of COPD exacerbation after failing ED treatments. Workup in the hospital was negative for either viral or bacterial infectious etiology, and pt was not treated with antibiotics. Pt instead was treated with IV steroids, supplemental oxygen above baseline, but and bronchodilator therapy with ultimate improvement in symptoms. Today at time of discharge pt reports breathing is much improved and around baseline. Pt is no longer requiring increased supplemental oxygen above home p.r.n. O2. Pt is encouraged to use his home supplemental oxygen as prescribed. Pt should also continue his home inhalers and use his CPAP machine at night. Pt should continue all of his other home medications. He will be discharged on a short course of prednisone 40 mg daily x4 days. Pt does not need any antibiotics as no infectious etiology was noted. Time Attestation Discharge Coordination Time (in mins): 35 Quality: Safe Use of Opioids Does Pt have an Active Cancer Diagnosis on the Problem List?: No Quality: Stroke Does the patient have a stroke diagnosis?: No Physical Exam Exam: Exam: General: AOx3, no acute distress Resp: CTA bilaterally though diminished CVS: S1, S2, RRR GI: +BS, NT, no distention, obese Skin: Warm, dry Neuro: Cranial nerves II-XII grossly intact bilaterally. Motor grossly intact bilaterally Extremities: No edema Psych: Appropriate affect Vital Signs: Vital Signs: Last Vital Signs Temp 97.7 F 07/22/25 07:49 Pulse 80 07/22/25 07:59 Resp 18 07/22/25 07:59 BP 143/88 H 07/22/25 07:49 Pulse Ox 96 07/22/25 07:49 O2 Del Method Room Air 07/22/25 07:49 O2 Flow Rate 2 07/22/25 03:23 BMI result Body Mass Index 44.0 DS: Data Data Completed and Pending Completed studies during hospitalization [Text1]: Procedures Assistance with Respiratory Ventilation, Less than 24 Consecutive Hours, Continuous Positive Airway Pressure (11/21/24) Labs on day of discharge: Laboratory Results - last 24 hr 07/21/25 07/21/25 07/22/25 16:10 20:02 05:49 WBC 15.9 H RBC 5.06 Hgb 14.0 Hct 45.0 MCV 88.9 MCH 27.7 MCHC 31.1 RDW 16.0 Plt Count 351 MPV 9.7 Immature Gran % (Auto) 0.6 H Neut % (Auto) 79.6 H Lymph % (Auto) 11.4 L [place] % (Auto) 8.2 Eos % (Auto) 0.0 Baso % (Auto) 0.2 Lymph # (Auto) 1.8 [place] # (Auto) 1.3 H Eos # (Auto) 0.0 Baso # (Auto) 0.0 Abs Immat Gran (auto) 0.10 H Absolute Neuts (auto) 12.7 H Absolute Nucleated RBC 0.020 H Nucleated RBC % (auto) 0.1 Sodium 141 Potassium 4.3 Chloride 98 Carbon Dioxide 35 H Anion Gap 12 BUN 25 H Creatinine 1.00 Estim Creat Clear Calc 111.2 Estimated GFR > 60 POC Glucose 132 H 127 H Random Glucose 99 Calcium 9.5 Magnesium 2.4 Total Bilirubin 0.1 AST 14 ALT 14 Alkaline Phosphatase 106 Total Protein 7.3 Albumin 3.9 07/22/25 07/22/25 07:32 11:28 WBC RBC Hgb Hct MCV MCH MCHC RDW Plt Count MPV Immature Gran % (Auto) Neut % (Auto) Lymph % (Auto) [place] % (Auto) Eos % (Auto) Baso % (Auto) Lymph # (Auto) [place] # (Auto) Eos # (Auto) Baso # (Auto) Abs Immat Gran (auto) Absolute Neuts (auto) Absolute Nucleated RBC Nucleated RBC % (auto) Sodium Potassium Chloride Carbon Dioxide Anion Gap BUN Creatinine Estim Creat Clear Calc Estimated GFR POC Glucose 101 161 H Random Glucose Calcium Magnesium Total Bilirubin AST ALT Alkaline Phosphatase Total Protein Albumin Preliminary micro results at discharge 07/20/25 06:58 Blood Culture - Preliminary Blood - Venous No growth after 48 hours. 07/20/25 10:33 Blood Culture - Preliminary Blood - Venous No growth after 24 hours. Discharge Plan Discharge Anticipated Discharge Date/Time: 07/22/25 11:40 Patient Disposition: Home, Self-Care Discharge Diagnosis: Acute on chronic hypoxic respiratory failure in the setting of COPD exacerbation Referrals: Physician,Unknown J [Primary Care Provider, Medical] - 1 Week Discharge Medications: New prednisone 20 mg tablet 40 mg PO DAILY Qty: 8 0RF Rx Instructions: Take 40 mg (2 tabs) once daily for the next 4 days, starting 07/23 and ending 07/26. Continued furosemide 40 mg tablet 40 mg PO DAILY Qty: 90 4RF Combivent Respimat 20-100 mcg/actuation mist 1 puff inhalation Q6H Qty: 1 6RF theophylline 450 mg tablet extended release 12 hr 450 mg PO DAILY Qty: 30 6RF ipratropium-albuterol 0.5 mg-3 mg(2.5 mg base)/3 mL solution for nebulization 3 ml inhalation Q4-6H PRN (Reason: wheezing) Qty: 270 6RF (DME) CPAP Machine/Device Device See Rx Instructions .Route Qty: 1 0RF Rx Instructions: As directed. Auto cpap 5-20. with all supplies Length of need lifetime acetaminophen 500 mg Tablet 1,000 mg PO DAILY PRN (Reason: Pain) polyethylene glycol 3350 [Miralax] 17 gram/dose Powder 17 g PO BEDTIME albuterol sulfate 90 mcg/actuation HFA aerosol inhaler 2 inh inhalation Q4H PRN (Reason: shortness of breath or wheezing) calcium carbonate-mag hydroxid 550-110 mg Tablet,Chewable 3 - 4 tab PO Q2H PRN (Reason: Heartburn) naproxen 500 mg tablet 500 mg PO BID PRN (Reason: Pain (Scale Score 4-6)) amlodipine 2.5 mg Tablet 2.5 mg PO DAILY Qty: 90 0RF Protocol: Hold for SBP< HOLD for SBP < : 90 prednisone 20 mg Tablet 20 mg PO DAILY Rx Instructions: filled 07/11/25 for 10 days, still has a couple days left arformoterol 15 mcg/2 mL Solution For Nebulization 2 ml INHALATION BID scopolamine base 1 mg over 3 days Patch 3 Day 1 patch TRANSDERMAL Q3D PRN (Reason: Nausea) Discharge Orders: Discharge Order (Routine); Ordered 07/22/25 Ordered By: Jose Maria Angeles Activity on Discharge: As tolerated Stand Alone Forms: Patient Portal Discharge page Print Language: [place] Care Plan Goals: See below Health Concerns: Acute on chronic hypoxic respiratory failure COPD exacerbation Plan of Treatment: You were admitted to the hospital for acute on chronic hypoxic respiratory failure in the setting of COPD exacerbation After treatment in the emergency department fail to alleviate your symptoms. You were treated with IV steroids, supplemental oxygen, and bronchodilator therapy to good effect. Additional workup in the hospital was negative for either viral or bacterial etiologies of your COPD exacerbation. At time of discharge you are lungs are clear, and your breathing has improved. You are now back to your baseline home oxygen and feeling ready for discharge. You will be discharged on a short course of prednisone. -- take prednisone 40 mg once daily for the next 4 days -- additional symptomatic treatment with cough drops/cough syrup as necessary -- continue your home inhalers -- you do not need any antibiotics as there does not appear to be any infectious cause to your symptoms Assessment: See discharge summary
--- NOTE | 2025-07-22 12:19 | MHC.CM.PN ---
pt dcd home self care
[2025-07-22 13:13] VITALS: BP 148/74; PULSE 103; RESP 18; TEMP 36.8; O2SAT 93
== END 2025-07-22 13:54 | disposition home or self-care (01) | DRG 190 ==
LOC: HO.ED 07:33 → HO.EDOVER 09:47 → HO.S3 13:23
PROVIDERS: Emergency Medicine; Student in an Organized Health Care Education/Training Program; Admitting Provider Physician Assistant Medical; Emergency Provider Emergency Medicine; Visit Provider Student in an Organized Health Care Education/Training Program
DX: J44.1 Chronic obstructive pulmonary disease with (acute) exacerbation (principal); I50.33 Acute on chronic diastolic (congestive) heart failure; J96.21 Acute and chronic respiratory failure with hypoxia; Z68.41 Body mass index [BMI] 40.0-44.9, adult; I11.0 Hypertensive heart disease with heart failure; E66.01 Morbid (severe) obesity due to excess calories; Z71.3 Dietary counseling and surveillance; G47.33 Obstructive sleep apnea (adult) (pediatric); Z20.822 Contact with and (suspected) exposure to COVID-19; Z91.199 Patient's noncompliance with other medical treatment and regimen due to unspecified reason; Z99.81 Dependence on supplemental oxygen; Z87.891 Personal history of nicotine dependence; Z79.52 Long term (current) use of systemic steroids; Z79.899 Other long term (current) drug therapy
CPT/HCPCS: 36415; 71045; 80053; 82803; 82947; 83605; 83735; 83880; 84484; 85025; 87040; 87637; 93005; 94640; 94660; 99285; J1650; J2919; J3475; J7120

== ENCOUNTER → 2025-07-20 06:56 | Outpatient (BNV) | payer OTHER, SELFPAY | PROVIDERS: Emergency Provider Emergency Medicine; Visit Provider Radiology Diagnostic Radiology | DX: R06.00 Dyspnea, unspecified (principal) | CPT/HCPCS: 71045 ==

== ENCOUNTER → 2025-07-20 06:56 | Outpatient (BNV) | payer OTHER, SELFPAY | PROVIDERS: Admitting Provider Physician Assistant Medical; Emergency Provider Emergency Medicine; Visit Provider Internal Medicine Cardiovascular Disease | DX: R94.31 Abnormal electrocardiogram [ECG] [EKG] (principal); R06.00 Dyspnea, unspecified | CPT/HCPCS: 93010 ==

== ENCOUNTER → 2025-07-20 09:28 | Outpatient (BNV) | payer OTHER, SELFPAY | PROVIDERS: Admitting Provider Physician Assistant Medical; Emergency Provider Emergency Medicine; Visit Provider Physician Assistant Medical | DX: J44.1 Chronic obstructive pulmonary disease with (acute) exacerbation (principal) | CPT/HCPCS: 99223; 99233 ==